=== PATIENT | male | born 1945 | race Caucasian/White ===

== ENCOUNTER → 2016-05-10 | Outpatient (CLI) | payer MEDICARE, MEDICAID ==
[~2016-05-10] MED LIST: ALBU0.632 IH; ALBU8.5H2 IH; ALLP300T PO; ALPR0.5T PO; AMIT100T2 PO; AMIT50TA3 PO; AMLO10TA2 PO; AMLO5TAB2 PO; ASP81TEC PO; ATOR40TA70 PO; BACL10TA PO; BSP10T PO; BUDE10.2 IH; CEPH500C PO; CETI10CA PO; CETI10TA17 PO; CHOL200025 PO; CIPR500T78 PO; CYAN10007 PO; DEXL60CA PO; ETOD400T PO; EZET10TA5 PO; FENO145T2 PO; FLUT16SP22 INH; FLUT1DIS26 IH; HYDR-3714 PO; HYDR-3812 PO; HYDR-623 PO; HYDR-753 PO; HYDR-757 PO; HYDR25TA4 PO; ISOS30TA3 PO; ISOS30TA8 PO; LISI10TA PO; LISI40TA PO; METO-272 PO; METO-274 PO; METO10TA3 PO; MIRA50TA PO; MONT10TA24 PO; NEOM28.35 TP; NTR.4SL SL; OM-31CAP9 PO; OMEP20TA2 PO; OMEP20TA7 PO; ONDAN4ODT SL; ONDN4T PO; OXYC-197 PO; PANT40TA PO; POLY119P PO; PRD10T PO; PRD20T PO; RANI300T4 PO; SCR1T1 PO; SENN1TAB8 PO; SUCR1TAB PO; SULF1TAB35 PO; SULF1TAB7 PO; TIOT18CA IH; TMSL.4C PO
--- NOTE | 2016-05-15 09:41 | ECHOCARDIOGRAPHY REPORT ---
PROCEDURE PHYSICIAN: ANDERSON KRUEGER DATE OF PROCEDURE: 05/10/2016 TWO DIMENSIONAL ECHOCARDIOGRAM REPORT PRIMARY PHYSICIAN: Dr. Cespedes OTHER PHYSICIAN: Dr. Krueger REFERRING PHYSICIAN: ORDERING PHYSICIAN: Yudi Zambrano APRN INDICATION FOR THE PROCEDURE: Coronary artery disease, aortic regurgitation, mitral regurgitation, hypertension MEASUREMENTS DERIVED VALUES LV DIAMETER (LAX) NORMALS NORMALS Diastolic 5. (3.6-5.2) Eject. Fract. (60%+/-6%) Systolic (2.3-3.9) Diastolic Vol. % Shortening (0.22-0.42) Systolic Vol. Aortic Root IVS THICKNESS Diastolic 1.2 (0.6-1.1) LVPW THICKNESS Diastolic 1.2 (0.6-1.1) LA DIAMETER Systolic 3.6 (2.1-3.7) DESCRIPTION: Two-dimension echocardiography shows normal global left ventricular systolic function with normal wall motion. The aortic, mitral and tricuspid valve leaflets show good leaflet excursion. There is no significant pericardial effusion. Doppler imaging shows mild tricuspid regurgitation. Pulmonary artery systolic pressure is estimated to be approximately 25 to 30 mmHg. Mitral inflow is consistent with grade I diastolic dysfunction of the left ventricle. There is no Doppler evidence of any significant valvular stenosis. Good subcostal views are not available. On the views available, there is no distinct evidence of any significant mitral cardiac shunt. The inferior vena cave does not appear to be dilated. CONCLUSION: 1. Normal global left ventricular systolic with ejection fraction of approximately 60%. 2. Mild to moderate aortic regurgitation. 3. Mild tricuspid regurgitation. 4. Mild diastolic dysfunction of the left ventricle. 5. Pulmonary artery systolic pressure is estimated to be approximately 25 to 30 mmHg. 6. Mild mitral regurgitation. Job ID: [id number] Dictated Date: 05/14/2016 12:42:18 Client Support Administrator Date: 05/15/2016 09:29:09 / nasim
== END ==
LOC: CARD 10:14
PROVIDERS: ATTEND Nurse Practitioner Family
DX: I25.10 Atherosclerotic heart disease of native coronary artery without angina pectoris (principal); I65.23 Occlusion and stenosis of bilateral carotid arteries; E78.4 Other hyperlipidemia; I34.0 Nonrheumatic mitral (valve) insufficiency; I35.1 Nonrheumatic aortic (valve) insufficiency; I10 Essential (primary) hypertension
CPT/HCPCS: 93306

== ENCOUNTER 2016-11-01 21:54 | Emergency (ER) | payer MEDICARE, MEDICAID ==
[~2016-11-01] VITALS: Ht 175.3 cm; Wt 98.0 kg
[2016-11-01] MEDS ORDERED: ORPHENADRINE 60 MG/2 ML (NORFLEX) AMP IM ONE (22:30)
[2016-11-01] MEDS ORDERED: KETOROLAC 60 MG/2 ML VIAL IM ONE (22:30)
[2016-11-01] MEDS ORDERED: diphenhydrAMINE 50 MG/ML INJ (BENADRYL) IM ONE (22:30)
[2016-11-01] MEDS ORDERED: TRAM-42 PO (22:41)
[2016-11-01] MEDS ORDERED: METH4TAB PO (22:41)
[2016-11-01] MEDS ORDERED: METH500T PO (22:41)
--- NOTE | 2016-11-01 22:41 | ED Back Pain ---
General Chief Complaint: Hip/Pelvic Problems Stated Complaint: LOWER BACK/LT HIP PAIN Nursing Triage Note: patient reports L hip and back pain after bending over and working in the garden this evening, denies injury Nursing Sepsis Screen: No Definite Risk Source of Information: Patient History of Present Illness Time Seen by Provider: 22:10 Initial Comments PT ARRIVES VIA POV C/O LOWER BACK AND LEFT "HIP" PAIN --POINTS TO LEFT SI JOINT AREA SITE OF PAIN HAS CHRONIC LOWER BACK, BILATERAL HIP AND BILATERAL KNEE PAIN, AND THIS IS EXACTLY THE SAME PAIN HE HAS HAD IN THE PAST SEES A SPECIALIST IN FOR THESE PROBLEMS, AND HAS AN APPOINTMENT THERE PT STATES SPECIALIST PRESCRIBES HIS PAIN MEDICATION--HYDROCODONE OR OXYCODONE PT STATES HE RAN OUT OF HIS PAIN MEDICATION 3 DAYS AGO, AND "JUST NEEDS SOMETHING TO GET HIM BY" UNTIL HIS APPOINTMENT IN [place] PT STATES "THEY ALWAYS GIVE ME A SHOT OF DILAUDID" FOR THIS PROBLEM NO NEW INJURY--PT STATES HIS PAIN GOT WORSE AFTER HE WORKED IN HIS GARDEN ALL AFTERNOON AND EVENING--ALOT OF BENDING OVER NO PARESTHESIAS OR MOTOR DEFICITS NO CHANGE IN BOWEL OR BLADDER FUNCTION NO RADIATION OF PAIN HAS NOT TAKEN ANYTHING FOR PAIN PT STATES HE HAS HAD NAUSEA AND VOMITING FOR THE LAST [address], [address] CRUZ TODAY IN OFFICE AND WAS GIVEN IV FLUIDS AND RX FOR NAUSEA MEDICATION--THOSE SYMPTOMS HAVE RESOLVED AT THIS TIME PT STATES HE DID NOT TELL DR. CRUZ ABOUT HIS BACK PAIN, AND STATES DR. CRUZ NEVER PRESCRIBES HIS PAIN MEDICATION PT STATES HE HAS HAD 3 BACK SURGERIES, LEFT KNEE AND HIP REPLACEMENTS AND IS SUPPOSED TO HAVE RIGHT HIP REPLACED, BUT HAS NOT SCHEDULED SURGERY. Other Comments PCP: DR. CRUZ, [facility] Allergies and Home Medications Allergies Coded Allergies: morphine (Verified Allergy, Severe, HIVES, N/V, 04/25/15) fentanyl (Unverified Allergy, Mild, RESTLESS, 04/25/15) Home Medications Albuterol 8.5 Gm Hfa.aer.ad, 2 PUFF IH Q4H PRN for COUGH, (Reported) PRN COUGH Allopurinol 300 Mg Tablet, 150 MG PO DAILY, (Reported) TAKE 1/2 OF (300MG) TAB Amitriptyline Hcl 50 Mg Tablet, 100 MG PO HS, (Reported) TAKE 2 (50MG) TABS Atorvastatin Calcium 40 Mg Tablet, 40 MG PO HS, (Reported) Budesonide/Formoterol Fumarate 10.2 Gm Hfa.aer.ad, 2 PUFF IH BID, (Reported) Buspirone Hcl 10 Mg Tablet, 10 MG PO HS, (Reported) Cetirizine HCl 10 Mg Tablet, 10 MG PO DAILY, (Reported) Etodolac 400 Mg Tablet, 1 TAB PO BID, #60 (Reported) Ezetimibe 10 Mg Tablet, 1 TAB PO DAILY, #28 (Reported) Fenofibrate Nanocrystallized 145 Mg Tablet, 145 MG PO DAILY, (Reported) Fluticasone Propionate 16 Gm [place].susp, 1 SPR INH DAILY, #16 (Reported) Hydrochlorothiazide 25 Mg Tablet, 25 MG PO DAILY, (Reported) Lisinopril 40 Mg Tablet, 40 MG PO DAILY, (Reported) Methocarbamol 500 Mg Tablet, 500 MG PO QID, #20 Prescribed by: SLOANE LOUIS on 11/01/162240 Methylprednisolone 4 Mg Tab.ds.pk, 4 MG PO UD, #1 Prescribed by: SLOANE LOUIS on 11/01/162240 Metoprolol Succinate 100 Mg Tab.er.24h, 100 MG PO DAILY, (Reported) Montelukast Sodium 10 Mg Tablet, 1 TAB PO DAILY, #28 (Reported) Om-3/Dha/Epa/Fish Oil/Vit D3 1 Each Capsule, 1,200 MG PO DAILY, (Reported) Ondansetron Hcl 4 Mg Tab, 4 MG PO Q4H PRN for NAUSEA/VOMITING, (Reported) PRN N/V Pantoprazole Sodium 40 Mg Tablet.dr, 40 MG PO DAILY, (Reported) Sennosides/Docusate Sodium 1 Each Tablet, 1-4 EACH PO DAILY PRN for CONSTIPATION , (Reported) Sucralfate 1 Gm Tablet, 1 TAB PO QID PRN for ABDOMINAL PAIN, #120 (Reported) Tamsulosin Hcl 0.4 Mg Cap, 0.4 MG PO DAILY, (Reported) Tiotropium [place] 18 Mcg Cap.w.dev, 2 PUFF IH DAILY, (Reported) Tramadol HCl 50 Mg Tablet, 50 MG PO Q4H, #20 Prescribed by: SLOANE LOUIS on 11/01/161 Constitutional: no symptoms reported Respiratory: no symptoms reported Cardiovascular: no symptoms reported Gastrointestinal: no symptoms reported Genitourinary: no symptoms reported Musculoskeletal: see HPI, back pain Skin: no symptoms reported Psychiatric/Neurological: No Symptoms Reported Past Bjahkqi-Clmewf-Gswfkq Hx Patient Social History Alcohol Use: Denies Use Recreational Drug Use: No Smoking Status: Former Smoker (2 PPD) Type Used: Cigarettes Former Smoker/When Quit: Apr 28, 1993 Recent Foreign Travel: No Contact w/Someone Who Travel: No Recent Infectious Disease Expo: No Recent Hopitalizations: No Immunizations Up To Date Tetanus Booster (TDap): More than 5yrs Date of Pneumonia Vaccine: Feb 06, 2015 Date of Influenza Vaccine: Jan 24, 2016 Seasonal Allergies Seasonal Allergies: Yes Surgeries HX Surgeries: Yes (CARPAL TUNNEL BILAT, BACK X3, R SHOULDER REPLACEMENT, L HIP REPLACEMENT, L TKR; EGD'S; PROSTATE BIOPSY; CIRCUMCISION; LYSIS OF ADHESIONS X 2 IN ; CARDIAC CATH-NO INTERVENTION) Surgeries: Abdominal, Cardiac, Joint Replacement, Orthopedic, Transurethral Resection Respiratory Hx Respiratory Disorders: Yes Respiratory Disorders: Asthma, COPD Cardiovascular Hx Cardiac Disorders: Yes (MITRAL VALVE PROLAPSE; CARDIAC CAHT 11/16/14--NO INTERVENTION) Cardiac Disorders: High Cholesterol, Hypertension, Valvular Heart Disease Neurological Hx Neurological Disorders: No Reproductive System Hx Reproductive Disorders: Yes Sexually Transmitted Disease: No HIV/AIDS: No Genitourinary Hx Genitourinary Disorders: Yes (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 THE OTHER; PROSTATE CANCER) Genitourinary Disorders: Prostate Problems, Kidney Stones Gastrointestinal Hx Gastrointestinal Disorders: Yes (FATTY LIVER; GASTROPARESIS) Gastrointestinal Disorders: Gastroesophageal Reflux, Liver Disease/Jaundice, Polyps, Esophagitis, Hiatal Hernia Musculoskeletal Hx Musculoskeletal Disorders: Yes Musculoskeletal Disorders: Degenerate Disk Disease, Arthritis, Back Injury, Chronic Back Pain, Gout Endocrine Hx Endocrine Disorders: Yes Endocrine Disorders: Diabetes, Non-Insulin dep HEENT HX ENT Disorders: Yes (READING GLASSES) Loss of Vision: Bilateral Hearing Impairment: Denies Cancer Hx Cancer: Yes (PROSTATE CANCER, DX 2014--S/P 47 RADIATION TREATMENTS) Cancer: Prostate Psychosocial Hx Psychiatric Problems: No Integumentary HX Skin/Integumentary Disorder: No Blood Transfusions Hx Blood Disorders: No Adverse Reaction to a Blood Tr: No (HAS HAD BLOOD WITH NO REACTION) Physical Exam Vital Signs Vital Sign - Last 12Hours 11/01/16 22:00 Temp 98.2 Pulse 99 Resp 18 B/P (MAP) 139/97 Pulse Ox 99 Capillary Refill : Less Than 3 Seconds General Appearance: No Apparent Distress, WD/WN Neck: Normal Inspection, Non Tender Cardiovascular: Regular Rate, Rhythm, No Edema, No Murmur, Normal Peripheral Pulses Respiratory: Normal Breath Sounds, No Accessory Muscle Use, No Respiratory Distress Gastrointestinal: Soft Back: Decreased Range of Motion (IN ALL DIRECTIONS), Other (LOWER LUMBAR TENDERNESS AND LEFT SI JOINT TENDERNESS--PALPATION REPRODUCES PAIN, DOES MOVEMENTS. DTR'S INTACT. 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 Norm as Tested Skin: Normal Color, Warm/Dry, Other (MULTIPLE ABRASIONS AND BRUISES TO FOREARMS ) Progress/Results/Core Measures Results/Orders My Orders Orders - SLOANE LOUIS DO Ketorolac Injection (Toradol Injection) (11/01/16 22:30) Orphenadrine Injection (Norflex Injectio (11/01/16 22:30) Diphenhydramine Injection (Benadryl Inje (11/01/16 22:30) Medications Given in ED Current Medications Medications Dose Ordered Sig/Allison Route Start Time Stop Time Status Last Admin Dose Admin Diphenhydramine HCl 50 mg ONCE ONCE IM 11/01/16 22:30 11/01/16 22:31 DC 11/01/16 22:34 50 MG Ketorolac Tromethamine 60 mg ONCE ONCE IM 11/01/16 22:30 11/01/16 22:31 DC 11/01/16 22:34 60 MG Orphenadrine Citrate 60 mg ONCE ONCE IM 11/01/16 22:30 11/01/16 22:31 DC 11/01/16 22:33 60 MG Vital Signs/I&O Vital Sign - Last 12Hours 11/01/16 11/01/16 22:00 22:50 Temp 98.2 Pulse 99 84 Resp 18 18 B/P (MAP) 139/97 Pulse Ox 99 99 Blood Pressure Mean: 111 Progress Note : Progress Note PAIN BEGINNING TO EASE AT DISMISSAL Departure Impression Impression: Primary Impression: Acute exacerbation of chronic low back pain Disposition: 01 HOME, SELF-CARE Condition: Stable Departure-Patient Inst. Referrals: MAGGI CRUZ MD (PCP/Family) Primary Care Physician Patient Instructions: Low Back Pain (DC), MANAGING YOUR CHRONIC PAIN Add. Discharge Instructions: MOIST HEAT TO SORE AREAS AT 20 MINUTE INTERVALS FOLLOW UP WITH YOUR SPECIALIST IN [place] FOR FURTHER CARE All discharge instructions reviewed with patient and/or family. Voiced understanding. Scripts Methocarbamol (Robaxin) 500 Mg Tablet 500 MG PO QID for Muscle Spasms, #20 TAB Prov: SLOANE LOUIS DO 11/01/16 Tramadol HCl (Ultram) 50 Mg Tablet 50 MG PO Q4H, #20 TAB Prov: SLOANE LOUIS DO 11/01/16 Methylprednisolone (Medrol) 4 Mg Tab.ds.pk 4 MG PO UD, #1 PKG Prov: SLOANE LOUIS DO 11/01/16 SLOANE LOUIS DO Nov 01, 2016 22:41
[2016-11-01 22:50] VITALS: BP 134/90
== END 2016-11-01 22:50 | disposition home or self-care (01) ==
LOC: EDUNIT# 21:54 → ER 21:56
DX: M54.5 Low back pain (principal); G89.29 Other chronic pain; J44.9 Chronic obstructive pulmonary disease, unspecified; I10 Essential (primary) hypertension; E78.00 Pure hypercholesterolemia, unspecified; K21.9 Gastro-esophageal reflux disease without esophagitis; M19.90 Unspecified osteoarthritis, unspecified site; E11.9 Type 2 diabetes mellitus without complications; Z85.46 Personal history of malignant neoplasm of prostate; Z87.19 Personal history of other diseases of the digestive system; Z87.442 Personal history of urinary calculi; Z87.891 Personal history of nicotine dependence; Z96.611 Presence of right artificial shoulder joint; Z96.642 Presence of left artificial hip joint
CPT/HCPCS: 96372; 99284

== ENCOUNTER 2016-12-04 21:12 | Emergency (ER) | payer MEDICARE, MEDICAID ==
[~2016-12-04] VITALS: Ht 175.3 cm; Wt 100.7 kg
[~2016-12-04 21:12] MED LIST changes: +METH4TAB PO; +METH500T PO; -METO-274 PO; +METO-395 PO; +TRAM-42 PO
[2016-12-04] MEDS ORDERED: DULO30CA48 (21:24)
[2016-12-04] MEDS ORDERED: ISOS30TA3 (21:24)
[2016-12-04] MEDS ORDERED: SUMA50TA2 (21:24)
[2016-12-04] MEDS ORDERED: AMLO10TA2 (21:24)
--- NOTE | 2016-12-04 22:07 | ED Hip Pain/Injury ---
General Chief Complaint: Hip/Pelvic Problems Stated Complaint: RT HIP AND KNEE PAIN Nursing Triage Note: RIGHT HIP PAIN, NO KNOWN INJURY Source: patient Exam Limitations: no limitations History of Present Illness Time seen by provider: 22:06 Initial Comments 71-year-old male patient presents to the emergency department with complaints of right hip pain and right knee pain. States he has chronic pain, but symptoms are worse today. Denies any known recent injury. Patient was seen on 11/01/[address] Otero for left hip pain. Patient sees Dr. Brasher in [place], [place] for the right hip. She was seen by this examiner in February 2016 with patient reporting at that time he was having right hip surgery after the holidays. Patient reported to Dr. Otero on 11/01 that he was scheduled on 11/13/[address] Brasher. Patient reports to this examiner he was not scheduled for an appointment in November with the specialist and did not have surgery after the holidays on the right hip. Patient now stating he has an appointment in one to [address] Brasher to schedule surgery for the right hip. Location: hip (R) Modifying Factors: Worse With Movement Allergies and Home Medications Allergies Coded Allergies: morphine (Verified Allergy, Severe, HIVES, N/V, 04/25/15) fentanyl (Verified Allergy, Mild, RESTLESS, 12/07/16) Home Medications Allopurinol 300 Mg Tablet, 150 MG PO DAILY, (Reported) TAKE 1/2 OF (300MG) TAB Amlodipine Besylate 10 Mg Tablet, (Reported) Atorvastatin Calcium 40 Mg Tablet, 40 MG PO HS, (Reported) Budesonide/Formoterol Fumarate 10.2 Gm Hfa.aer.ad, 2 PUFF IH BID, (Reported) Buspirone Hcl 10 Mg Tablet, 10 MG PO HS, (Reported) Cetirizine HCl 10 Mg Tablet, 10 MG PO DAILY, (Reported) Cyclobenzaprine HCl 10 Mg Tablet, 10 MG PO Q8H PRN for SPASMS, #10 Ref 0 Prescribed by: ELPIDIO ROMAN on 12/04/162222 Duloxetine HCl 30 Mg Capsule., (Reported) Ezetimibe 10 Mg Tablet, 1 TAB PO DAILY, #28 (Reported) Fenofibrate Nanocrystallized 145 Mg Tablet, 145 MG PO DAILY, (Reported) Hydrochlorothiazide 25 Mg Tablet, 25 MG PO DAILY, (Reported) Isosorbide Mononitrate 30 Mg Tab.er.24h, (Reported) Ketoprofen 75 Mg Capsule, 75 MG PO TID PRN for pain, #30 Ref 0 Prescribed by: ELPIDIO ROMAN on 12/04/162222 Lisinopril 40 Mg Tablet, 40 MG PO DAILY, (Reported) Metoprolol Succinate 100 Mg Tab.er.24h, 100 MG PO DAILY, (Reported) Pantoprazole Sodium 40 Mg Tablet.dr, 40 MG PO DAILY, (Reported) Prednisone 20 Mg Tab, 40 MG PO DAILY, #10 Ref 0 Prescribed by: ELPIDIO ROMAN on 12/04/162222 Sucralfate 1 Gm Tablet, 1 TAB PO QID PRN for ABDOMINAL PAIN, #120 (Reported) Sumatriptan Succinate 50 Mg Tablet, (Reported) Tamsulosin Hcl 0.4 Mg Cap, 0.4 MG PO DAILY, (Reported) Tiotropium [place] 18 Mcg Cap.w.dev, 2 PUFF IH DAILY, (Reported) Tramadol HCl 50 Mg Tablet, 50 MG PO Q4H, #20 Prescribed by: SLOANE OTERO on 11/01/16 2241 Constitutional: No chills, No fever, No malaise Respiratory: no symptoms reported Cardiovascular: no symptoms reported Gastrointestinal: No abdominal pain, No constipation, No diarrhea, No loss of appetite, No nausea, No vomiting Genitourinary: No dysuria, No frequency, No hematuria Musculoskeletal: see HPI, No back pain, joint pain, No joint swelling Skin: no symptoms reported Psychiatric/Neurological: No Symptoms Reported All Other Systems Reviewed Negative Unless Noted: Yes (Negative excepted noted.) Past Ybgcjmp-Vkreew-Rzbebv Hx Patient Social History Alcohol Use: Denies Use Recreational Drug Use: No Smoking Status: Former Smoker Type Used: Cigarettes Former Smoker, Quit: Nov 06, 1990 Recent Foreign Travel: No Contact w/Someone Who Travel: No Recent Infectious Disease Expo: No Recent Hopitalizations: No Immunizations Up To Date Tetanus Booster (TDap): More than 5yrs Date of Pneumonia Vaccine: Feb 06, 2015 Date of Influenza Vaccine: Jan 24, 2016 Seasonal Allergies Seasonal Allergies: Yes Surgeries History of Surgeries: Yes (CARPAL TUNNEL BILAT, BACK X3, R SHOULDER REPLACEMEN , L HIP REPLACE, L TKR) Surgeries: Abdominal, Cardiac, Joint Replacement, Orthopedic, Transurethral Resection Respiratory History of Respiratory Disorde: Yes Respiratory Disorders: Asthma, COPD Currently Using CPAP: No Currently Using BIPAP: No Cardiovascular History of Cardiac Disorders: Yes (MITRAL VALVE PROLAPSE) Cardiac Disorders: High Cholesterol, Hypertension, Valvular Heart Disease Neurological History of Neurological Disord: No Reproductive System Hx Reproductive Disorders: Yes Sexually Transmitted Disease: No HIV/AIDS: No Genitourinary History of Genitourinary Disor: Yes Genitourinary Disorders: Prostate Problems, Kidney Stones Gastrointestinal History of Gastrointestinal Di: Yes (FATTY LIVER) Gastrointestinal Disorders: Gastroesophageal Reflux, Liver Disease/Jaundice, Polyps, Esophagitis, Hiatal Hernia Musculoskeletal History of Musculoskeletal Dis: Yes (chronic hip and knee pain) Musculoskeletal Disorders: Degenerate Disk Disease, Arthritis, Back Injury, Chronic Back Pain, Gout Endocrine History of Endocrine Disorders: Yes Endocrine Disorders: Diabetes, Non-Insulin dep HEENT History of HEENT Disorders: No Loss of Vision: Bilateral Hearing Impairment: Denies Cancer History of Cancer: Yes Cancer: Prostate Psychosocial History of Psychiatric Problem: No Integumentary History of Skin or Integumenta: No Blood Transfusions History of Blood Disorders: No Adverse Reaction to a Blood Tr: No (HAS HAD BLOOD WITH NO REACTION) Reviewed Nursing Assessment Reviewed/Agree w Nursing PMH: Yes Family Medical History Significant Family History: No Pertinent Family Hx Physical Exam Vital Signs Capillary Refill : Less Than 3 Seconds General Appearance: No Apparent Distress, WD/WN, Other (patient noted to be ambulating around the room without difficulty. Upon this examiner entering the room patient ambulates across the room and sits on the side of the bed without grimacing and without difficulty.) HEENT: PERRL/EOMI, Pharynx Normal Neck: Normal Inspection, Supple Cardiovascular: Regular Rate, Rhythm, No Edema, No Murmur, Normal Peripheral Pulses Respiratory: Lungs Clear, Normal Breath Sounds, No Accessory Muscle Use, No Respiratory Distress Peripheral Pulses: 2+ Dorsalis Pedis (R), 2+ Left Dors-Pedis (L), 2+ Radial Pulses (R), 2+ Radial Pulses (L) Gastrointestinal: Normal Bowel Sounds, Non Tender, Soft Back: Normal Inspection Extremity: Normal Capillary Refill, Normal Inspection, Normal Range of Motion, No Pedal Edema, Other (mild soft tissue tenderness noted of the right posterior and lateral hip as well as right knee. No bony tenderness noted. No swelling, deformity, or ecchymosis noted.) Neurologic/Psychiatric: Alert, Oriented x3, No Motor/Sensory Deficits, Normal Mood/Affect Skin: Normal Color, Warm/Dry, No Cool, No Cyanosis, No Ecchymosis Progress/Results/Core Measures Results/Orders My Orders Orders - ELPIDIO ROMAN Hydrocodone/Apap 10/325 Tablet (Lortab 1 (12/04/16 22:30) Cyclobenzaprine Tablet (Flexeril Tablet) (12/04/16 22:18) Vital Signs/I&O Blood Pressure Mean: 122 Departure Communication (Admissions) Progress Notes Patient seen and evaluated. Patient was given 1 dose of hydrocodone and Flexeril in the emergency department. Patient also given prescriptions for prednisone, ketoprofen, and Flexeril. Patient to contact Dr. Brasher's office tomorrow morning to see if they have an appointment this week. Patient to f/u with his PCP or Dr. Brasher for narcotic refills. Impression Impression: Primary Impression: Chronic right hip pain Disposition: HOME, SELF-CARE Condition: Improved Departure-Patient Inst. Decision time for Depature: 22:21 Referrals: MAGGI CRUZ MD (PCP/Family) Primary Care Physician Patient Instructions: Chronic Pain (DC) Add. Discharge Instructions: All discharge instructions reviewed with patient and/or family. Voiced understanding. Medications as instructed. Ionized strength [id number] as directed for pain. Follow-up with your specialist in [place] on the 11 of December as previously scheduled. Return to the emergency department for worsened symptoms or any other concerns. Scripts Prednisone (Prednisone) 20 Mg Tab 40 MG PO DAILY, #10 TAB 0 Refills Prov: ELPIDIO ROMAN 12/04/16 Cyclobenzaprine HCl (Cyclobenzaprine HCl) 10 Mg Tablet 10 MG PO Q8H Y for SPASMS, #10 TAB 0 Refills Prov: ELPIDIO ROMAN 12/04/16 Ketoprofen (Ketoprofen) 75 Mg Capsule 75 MG PO TID Y for pain, #30 CAP 0 Refills Prov: ELPIDIO ROMAN 12/04/16 ELPIDIO ROMAN Dec 04, 2016 22:07
[2016-12-04] MEDS ORDERED: CYCLOBENZAPRINE 10 MG (FLEXERIL) TAB PO STA (22:18)
[2016-12-04] MEDS ORDERED: CYCL10TA9 PO (22:23)
[2016-12-04] MEDS ORDERED: PRD20T PO (22:23)
[2016-12-04] MEDS ORDERED: KETO75CA PO (22:23)
[2016-12-04] MEDS ORDERED: HYDROcodone/APAP 10 MG/325 MG (LORTAB) TAB PO ONE (22:30)
[2016-12-04 22:35] VITALS: BP 171/98
--- OUTSIDE RECORDS SUMMARY | 2016-12-05 04:39 | XMS REPORT | Continuity of Care Document ---
Author Author [employer] Organization [employer] Address Unknown Phone Unavailable Care Team Providers Care Documentation Specialist Name Role Phone [employer] Unavailable Unavailable Problems Problem Status Onset Date Classification Date Reported Comments Source Generalized anxiety disorder (disorder) 10/24/2015 Diagnosis 10/25/2015 [facility] Discharge Diagnosis: Chronic kidney disease 10/24/2015 Diagnosis 10/25/2015 [facility] No data available for this section Problem 10/25/2015 [facility] Medications Medication Details Route Status Patient Instructions Ordering Provider Order Date Source Lorazepam 0.5 MG Oral Tablet [Ativan]
</br>1 Tab, TID, PO, 10 Tab, 10/28/15, 0 Number of Refills, 0, Print Requisition Inactive [facility] Allergies, Adverse Reactions, Alerts Substance Category Reaction Severity Reaction type Status Date Reported Comments Source Fentanyl Assertion upset stomach Drug allergy [facility] Care Morphine Assertion upset stomach Drug allergy [facility] Immunizations Immunization Date Given Site Status Last Updated Comments Source No data available for this section No data available for this section [facility] Results Order Name Results Value Reference Range Date Interpretation Comments Source ED Patient Discharge Instructions ED Patient Discharge Instructions [facility] [address] Aftercare Instructions to the Patient Name: ТАТЬЯНА CROCKETT Current Date: 10/24/2015 17:53:28 : 1945 12:00 AM Chief Complaint: Anxiety reaction Visit Date: 10/24/2015 3:40 PM Primary Care Provider: Name: Not, Listed Phone: [facility] would like to thank you for allowing us to assist you with your healthcare needs. The following includes patient education materials and information regarding your injury/illness. An Emergency Department visit is not capable of addressing all the unique aspects of an individuals healthcare. It is intended to address immediate and life-threatening concerns. Emergency Department visits do not take the place of routine physical examinations or follow-up examinations by a primary care physician. In addition, medical problems may not be apparent, diagnosed, or treated prior to being released from the Emergency Department. Your initial radiology reading may have been done by an Emergency Physician and is a preliminary interpretation to expedite your care. A radiologist reviews all x-rays within 24 hours. Culture results will be ready in 2-4 days. If final radiology or lab test results indicate a need for further treatment, we will attempt to contact you or your physician. Every medication may cause side effects. If medications were prescribed to you, finish all prescriptions as instructed even if you feel better. If you experience a side effect, notify your physician, pharmacist, or return to the Emergency Department. Alcohol may interfere with the medication prescribed. Follow the instructions given by the pharmacy that fills your prescription. If you were given medications that may cause drowsiness do not drive, operate heavy equipment, or perform duties that require you to be alert. Please call tomorrow or the next available for an appointment in the specified timeframe. If you do not have a primary care provider, or your provider is unable, please contact the [facility] [place] to assist you in making an appointment. Visit [email or web address] to see your health information, physician notes, helpful videos, your bill, and other information online. Follow-up Instructions: With: Address: When: Follow up with your Primary Care Physician within 1 to 3 days Comment: Your appointment has not been made Return if worsening Medication Changes: Tests and Procedures You had laboratory tests performed during your stay. Patient Education: Chronic Kidney Disease (CKD) The role of the kidneys is to remove waste products and excess water from the blood. When the kidneys do not function normally and waste products begin to build up in the blood, this is called chronic kidney disease (CKD). CKD is defined as the presence of kidney damage or a decrease in kidney function lasting 3 months or more. CKD allows excess water, waste, and toxic substances to build up in the body. This can eventually become life-threatening, requiring dialysis or a kidney transplant to stay alive. This most severe form is called end stage renal disease or ESRD. Diabetes is the leading causes of chronic renal failure. Other causes include high blood pressure, hardening of the arteries (atherosclerosis), lupus, inflammation of the blood vessels (vasculitis), prior viral and bacterial infections, and others. Certain jbyf-drz-meidmdv pain medicines can cause renal failure when taken often over a long period of time. These include aspirin, ibuprofen, and related anti-inflammatory medicines called NSAIDs (nonsteroidal anti-inflammatory drugs). Home care The following guidelines will help you care for yourself at home: 1. If you have diabetes, talk to your doctor about the quality of your blood sugar control and any adjustments needed to your diet, lifestyle, or medicines. 2. If you have high blood pressure: Take prescribed medicine to lower your blood pressure to the recommended goal of less than 130/80. Take up a regular exercise program that you enjoy. Check with your doctor to be sure your planned exercise program is right for you. Reduce your salt (sodium) intake. Your doctor can tell you how much salt per day is safe for you. 3. If you are overweight, talk to your doctor about a weight loss plan. 4. If you smoke, you must quit. Smoking worsens kidney disease. Talk to your doctor about ways to help you quit. For more information, visit the following links: www.smokefree.gov/sites/default/files/pdf/qgkosomf-wej-xrc-accessible.pdf www.smokefree.gov www.cancer.org/healthy/stayawayfromtobacco/guidetoquittingsmoking/ 5. Most patients with chronic renal failure need to follow a special diet. Be sure you understand yours. In general, you will need to restrict protein, salt, potassium, and phosphorus. You also need to limit fluid intake. A calcium supplement may be prescribed to protect your bones from osteoporosis. 6. CKD is a risk factor for heart disease. Talk to your doctor about any other risk factors you might have and what you can do to lessen them. 7. Talk to your doctor about any medicines you are taking to determine if they need to be reduced or stopped. 8. Avoid the following ilxe-xzt-trvdgss medicines, or consult your doctor before using: Aspirin and nonsteroidal anti-inflammatory drugs (NSAIDs) such as ibuprofen or naproxen (short-term use of acetaminophen for fever or pain is okay) Laxatives and antacids containing magnesium or aluminum Fleet or phospho soda enemas containing phosphorus Certain stomach acid-blocking medicine such as cimetidine or ranitidine Decongestants containing pseudoephedrine Herbal supplements Follow-up care Follow up with your doctor or as advised by our staff. Contact one of the following for more information: [place] www.aakp.org National Kidney Foundation www.kidney.org [employer] www.kidneyfund.org National Kidney Disease Education Program (406) 2JAUNRA www.nkdep.nih.gov [NOTE: If an X-ray, EKG (cardiogram), or other diagnostic test was taken, another specialist will review it. You will be notified of any new findings that may affect your care.] When to seek medical care Get prompt medical attention or contact your doctor if any of the following occur: Nausea or vomiting Fever greater than 100.4F (38C) Severe weakness, dizziness, fainting, drowsiness, or confusion Chest pain or shortness of breath Unexpected weight gain or swelling in the legs, ankles, or around the eyes Heart beating fast, slow, or irregularly Decrease or absent urine output [id number] [employer] [place] [address]. All rights reserved. This information is not intended as a substitute for professional medical care. Always follow your healthcare professional's instructions. Anxiety Reaction Anxiety is the feeling we all get when we think something bad might happen. It is a normal response to stress and usually causes only a mild reaction. When anxiety becomes more severe, it can interfere with daily life. In some cases, you may not even be aware of what it is you're anxious about. There may also be a genetic link or it may be a learned behavior in the home. Both psychological and physical triggers cause stress reaction. It's often a response to fear or emotional stress, real or imagined. This stress may come from home, family, work, or social relationships. During an anxiety reaction, you may feel: Helpless Nervous Depressed Irritable Your body may show signs of anxiety in many ways. You may experience: Dry mouth Shakiness Dizziness Weakness Trouble breathing Breathing fast (hyperventilating) Chest pressure Sweating Headache Nausea Diarrhea Tiredness Inability to sleep Sexual problems Home care Try to locate the sources of stress in your life. They may not be obvious. These may include: Daily hassles of life (traffic jams, missed appointments, car troubles, etc. ) Major life changes, both good (new baby, job promotion) and bad (loss of job , loss of loved one) Overload: feeling that you have too many responsibilities and can't take care of all of them at once Feeling helpless, feeling that your problems are beyond what you're able to solve Notice how your body reacts to stress. Learn to listen to your body signals. This will help you take action before the stress becomes severe. When you can, do something about the source of your stress. (Avoid hassles, limit the amount of change that happens in your life at one time and take a break when you feel overloaded). Unfortunately, many stressful situations can't be avoided. It is necessary to learn how to better manage stress. There are many proven methods that will reduce your anxiety. These include simple things like exercise, good nutrition and adequate rest. Also, there are certain techniques that are helpful: Relaxation Breathing exercises Visualization Biofeedback Meditation For more information about this, consult your doctor or go to a local bookstore and review the many books and tapes available on this subject. Follow-up care If you feel that your anxiety is not responding to self-help measures, contact your doctor or make an appointment with a counselor. You may need short-term psychological counseling and temporary medicine to help you manage stress. Call 911 Call your healthcare provider right away if any of these occur: Trouble breathing Confusion Drowsiness or trouble wakening Fainting or loss of consciousness Rapid heart rate Seizure New chest pain that becomes more severe, lasts longer, or spreads into your shoulder, arm, neck, jaw, or back When to seek medical advice Call your healthcare provider right away if any of these occur: Your symptoms get worse Severe headache not relieved by rest and mild pain reliever [id number] [employer] [place] [address]. All rights reserved. This information is not intended as a substitute for professional medical care. Always follow your healthcare professional's instructions. Name: ТАТЬЯНА CROCKETT Current Date: 10/24/2015 17:53:28 : 1945 12:00 AM Current Medication List: Keep your Medication List with you in case of emergency. Update your medication list with any changes. Include Wotl-Soq-Cqmudhd and Herbal medications. Ativan 0.5 mg oral tablet Generic Medication Name: lorazepam 0.5 mg, Oral, 3 times a day, 10 Tab, 0 Refills, Printed Please bring this list to your next provider(s) visit. Update your medication list when any medications are stopped, doses are changed or new medications are added. Add any over the counter medications, vitamins or herbals to your list. Carry this medication list with you at all times so in the event of an emergency situation your Provider or Nurse can provide you with the best and safest care. Patient Visit Summary ТАТЬЯНА CROCKETT has been given the following list of patient education materials, prescriptions and follow-up instructions: Follow-up Instructions: With: Address: When: Follow up with your Primary Care Physician within 1 to 3 days Comment: Your appointment has not been made Return if worsening Tests and Procedures You had laboratory tests performed during your stay. Patient Education Materials: CHRONIC RENAL FAILURE; ANXIETY REACTION I, ТАТЬЯНА CROCKETT, hereby acknowledge receipt of the instructions indicated above. I will arrange for followup care as indicated above. I understand that if my condition worsens or new symptoms appear, I should contact my private physician immediately. If I am unable to reach my private physician, I understand that I should return promptly to the [facility] at [facility]. I acknowledge receipt of all personal possessions brought to the Emergency Department with me. Patient: Date: __ Time: Witness: Date: _ Time: To request an electronic copy of your discharge instructions, Please contact [employer] at [phone]. Hours are Saturday through Saturday 8am to 5pm. 10/24/2015 [facility] CHEM12 eGFR 40 mL/min >=60 10/24/2015 LOW Estimated eGFR Non calculated using MDRD study equation Verified by Discern Expert.
The MDRD GFR formula is valid only for adults between 18 and 85 years of age.
[facility] CHEM12 Creatinine 1.72 mg/dL 0.40 - 1.10 10/24/2015 HI [facility] LIP Lipase 68 U/L 73 - 393 10/24/2015 LOW [facility] MG Magnesium Level 1.8 mg/dL 1.4 - 2.4 10/24/2015 N [facility] T4 T4 9.8 mcg/dL 4.7 - 13.3 10/24/2015 N [facility] TROPON Troponin <0.02 ng/mL - <=0.09 10/24/2015 N Result Range Troponin Interpretation
<0.1 ng/ml No evidence of myocardial ischemia
0.1 - 0.6 ng/ml Possible myocardial ischemia (ACS)
>0.6 ng /ml Acute myocardial infarction (AMI)
[facility] Care TSH TSH 3.680 uIU/mL 0.354 - 5.720 10/24/2015 N [facility] CHEM12 Potassium 3.7 mmol/L 3.5 - 5.0 10/24/2015 N [facility] Protime INR 1.06 - <=1.20 10/24/2015 N Therapeutic range for INR is 2.0-3.0, except for mechanical prosthetic valves and recurrent myocardial infarction where therapeutic range is 2.5-3.5.
[facility] Emergency Room Documents Emergency Room Documents Patient: ТАТЬЯНА CROCKETT Age: 70 years Sex: Male : 1945 Associated Diagnoses: None Author: Sebas Hilliard MD Basic Information Triage Information: Health History ED ED Cardiac Medical History: No ED Dyslipidemia: No ED Respiratory Medical History: No ED Neurological Medical History: No ED Diabetes Medical History: No ED High Blood Pressure Medical History: No ED Currently : No ED LMP: No ED Previous Surgeries: No ED Other Medical Hx: No ED Smoking Hx: No Exposed to Second Hand Smoke: No ED Tetanus < 5 years: No . Time seen: Date & time 10/24/2015 15:38:00. History source: Family. Arrival mode: hospital bed. History limitation: Clinical condition. Additional information: Reason for Visit Additional Info: Told camilo may not live. Collapsed in ICU waiting room. Shaking uncontrollably. 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 History of Present Illness The patient presents with anxiety. The onset was just prior to arrival. The course/duration of symptoms is constant. Character of symptoms anxious. The degree of symptoms is: Exacerbating factors consist of family problems. Therapy today: see nurses notes. Patient received devastating news regarding his granddaughter NEWTON. He had an anxiety reaction, started shaking, and was not responding. His states he may be dehydrated. The met team was called on patient in the ICU waiting room and patient was brought to ED on a hospital bed. Review of Systems Additional review of systems information: Unable to obtain due to: Clinical condition. Health Status Allergies: Allergic Reactions (Selected) Severity Not Documented FentaNYL- Upset stomach. Morphine- Upset stomach.. Medications: Prescription / Home Medications: No home medications found. Medications Administered this Visit Ativan (lorazepam) , 1 mg, IVP, X 1 DOSE Versed (midazolam) , 2 mg, IM, X 1 DOSE Versed (midazolam) , 2 mg, IM, X 1 DOSE Bolus - Sodium Chloride 0.9% (Sodium Chloride 0.9%) , 1,000 mL, IV, 0 mL/hr, X 1 DOSE , per nurse's notes. Immunizations: Per nurse's notes. Past Medical/ Family/ Social History Medical history Gastrointestinal: kidney issues. Surgical history: Surgical history No active procedure history items have been selected or recorded.. Social history: Tobacco use: Denies, Family/social situation: . Problem list: No problem items selected or recorded., per nurse's notes. Physical Examination Vital Signs Dt/Tm Temp BP Pulse RR SAO2 O2 MAP 10/23 16:01 - 187/92 126 26 96 2 - . Per nurse's notes. Oxygen Saturation 10/24/2015 16:01 CDT Oxygen Saturation 96 % . General: Moderate distress, diaphoretic. Skin: Warm, pink, intact. Head: Normocephalic, atraumatic. Neck: Supple, no JVD. Eye: Pupils are equal, round and reactive to light, extraocular movements are intact, normal conjunctiva. Ears, nose, mouth and throat: Tympanic membranes clear, oral mucosa moist, eye tracking with movement of bed. Cardiovascular: No murmur, Tachycardia. Respiratory: Lungs are clear to auscultation. Gastrointestinal: Soft, Nontender, Normal bowel sounds, No organomegaly, no fluid wave, Signs: McBurney's negative, Berg's negative. Back: Nontender, Normal range of motion. Musculoskeletal: Normal ROM, normal strength, no tenderness, controlled musculoskeletal tremulousness. Neurological: Alert and oriented to person, place, time, and situation, No focal neurological deficit observed. Lymphatics: No lymphadenopathy. Psychiatric: Cooperative, appropriate mood & affect. Medical Decision Making Documents reviewed: Emergency department nurses' notes. Electrocardiogram: ED ECG 12-Lead - 10/24/15 15:56 AGE IS NOT ENTERED, ASSUMED TO BE 50 YEARS OLD FOR PURPOSE OF ECG INTERPRETATION SINUS TACHYCARDIA BORDERLINE LEFT AXIS DEVIATION NL AXIS AND INTERVAL NO ACUTE ST ELEVATION OR RECIPROCAL CHANGES NO PREVIOUS FOR COMPARISON Signed by: Sebas Hilliard MD 10/24/2015 16:28:25 . Results review: Lab results from flowsheet : Lab View 10/24/2015 16:15 CDT pH Art 7.40 pCO2 Art 39 mmHg pO2 Art 78 mmHg LOW HCO3 Art 24 mmol/L O2Hb% 93 % LOW %Saturation, Arterial 95 % Base Excess Art -0.5 mmol/L O2 Cont Art 17.7 vol% Hemoglobin Art 13.5 gm/dL Carboxy Hemoglobin 0.9 % MetHb, Arterial 1.4 % Reduced Hgb 4.7 % NA Level-Art 138 mmol/L K Level--Art 3.5 mmol/L Cl Level--Art 104 mmol/L IonCa Level--Art 1.21 mmol/L Lactate--Art 1.3 mmol/L Glucose--Art. 113 mg/dL HI LPM, Oxygen 2.0 NA Intubated Yes/No No Kenny's Test Yes Device NC Sample Type Arterial Body Site, Resp Tx Left Radial 10/24/2015 16:00 CDT WBC 10.5 x10^3/uL RBC 4.81 x10^6/uL Hgb 14.6 gm/dL Hct 43.6 % MCV 91 fL MCH 30.4 pg MCHC 33.5 gm/dL RDW 12.9 % Platelet 231 x10^3/uL Segs 69 % NA Lymph 20 % NA [place] 9 % NA Eos 1 % NA Baso 1 % NA Abs Neutro 7.27 x10^3/uL Abs Lymph 2.06 x10^3/uL Abs [place] 0.90 x10^3/uL Abs Eos 0.06 x10^3/uL Abs Baso 0.060 thous/uL RBC Morph Normal Protime 11.4 Second(s) INR 1.06 Total Protein 7.7 gm/dL Albumin Level 4.6 gm/dL Calcium 9.3 mg/dL Corrected/Adjusted Ca 8.8 mg/dL Bili Total 0.7 mg/dL Alk Phos 51 U/L Sodium 135 mmol/L Potassium 3.7 mmol/L Chloride 99 mmol/L TCO2 (Bicarbonate) 28 mmol/L Glucose Level 105 mg/dL HI BUN 25 mg/dL HI Creatinine 1.72 mg/dL HI eGFR 40 mL/min LOW ALT/GPT 31 U/L AST/GOT 25 U/L Magnesium Level 1.8 mg/dL Troponin <0.02 ng/mL Lipase 68 U/L LOW T4 9.8 mcg/dL TSH 3.680 uIU/mL . Notes: After review of the history, physical exam, and diagnostic studies, the following conditions have been counseled. The conditions are derived from a limited patient encounter and may not be all-inclusive. Offered observation stay but pt declined. ER precautions and follow up discussed. pt expressed understanding Reexamination/ Reevaluation Time: 10/24/2015 16:08:00 . Assessment: After IV and IM medications, pt is alert, conversing and in no acute distress. Time: 10/24/2015 17:28:00 . Vital signs Dt/Tm Temp BP Pulse RR SAO2 O2 MAP 10/23 16:01 - 187/92 126 26 96 2 129 10/23 16:10 - 160/124 126 26 96 2 129 10/23 16:20 - 188/91 112 17 94 - 129 10/23 16:30 - 192/149 108 21 97 - 113 10/23 16:40 - 178/85 111 24 99 - 160 Notes: I have discussed with the patient, family, and others as appropriate the ancillary data, clinical impression, and the plan. Patient will be discharged to home. Return precautions were discussed with the patient and understanding was indicated. Procedure Critical care note Total time: 30-74 minutes spent engaged in work directly related to patient care and/ or available for direct patient care. Critical condition(s) addressed for impending deterioration include: metabolic. Associated risk factors: metabolic changes, dehydration. Management: bedside assessment, supervision of care, Interpretation ( electrocardiogram, blood pressure), Interventions hemodynamic management, Case review (medical economics consultant, nursing, family), Alternate history family. Treatment response: Pt feels much improved s/p treatment. . Performed by: self. Notes: pt required significant amount of continuous bedisde monitoring and care given significant muscle thrashing and movement which prevented IV placement. Multiple IM doses of medication were given an adequate time was needed between each dose to allow for effect, but also as to not over dose the patient while in the dept. he is now comfortable and admit that he was quite anxious and upset after hearing bad news regarding his granddaughter. ER precautions discussed and p expressed understanding.. Impression and Plan Anxiety reaction (EIA38-VB F41.1, Discharge, Medical) Chronic kidney disease (LUU23-ZZ N18.9, Discharge, Medical) Plan Condition: Stable. Disposition: Discharged: Time 10/24/2015 17:23:00, to home. Prescriptions: Orders Pharmacy: Ativan 0.5 mg oral tablet (Prescribe): 1 Tab, PO, TID, 10 Tab, 0 Refill(s) . Patient was given the following educational materials: ANXIETY REACTION, CHRONIC RENAL FAILURE. Follow up with: Follow up with your Primary Care Physician Within 1 to 3 days Your appointment has not been made Return if worsening. Counseled: Patient, Family, Regarding diagnosis, Regarding diagnostic results, Regarding treatment plan, Regarding prescription, Patient indicated understanding of instructions, Family Understood, Family Understood. 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 Notes: Documentation assistance is provided by Emperatriz Joe. I have reviewed the information recorded by Emperatriz Joe at my direction. The chart has been reviewed and validated by me, Dr. Hilliard, Documentation assistance provided by Leila Briscoe.I have reviewed the information recorded by Leila Briscoe at my direction and the chart has been reviewed and validated by me Dr. Hilliard. . [Electronically Signed on 10.24.2015 05:33 PM]
Sebas Hilliard MD

[ Electronically Signed on 10.24.15.05:44 PM
Sebas Hilliard MD</br> 10/24/2015 [Electronically Signed on 10.24.2015 05:33 PM] Sebas Hilliard MD [Electronically Signed on 10.24.15.05:44 PM Sebas Hilliard MD [facility] ABG. pH Art 7.40 7.35 - 7.45 10/24/2015 N [facility] -RBC Morphology RBC Morph Normal Normal 10/24/2015 N [facility]
RBC morphology is graded as 1, 2 , or 3 indicating a level of abnormality.
1= few/slight
2=moderate
3=marked/many
[facility] -Auto Diff [place] 9 % 10/24/2015 NA [facility] CBC with Diff RBC 4.81 x10^6/ uL 4.60 - 6.20 10/24/2015 N [facility] Progress Note Progress Note Patient: ТАТЬЯНА CROCKETT Age: 70 years Sex: Male : 1945 Associated Diagnoses: None Author: Thom Ragland MD General Information MET team called. Dr. Burgos statesd patient after receiving bad news about her [facility] started shaking and not responding. Pt did not follow commands. Vitals were stable except for tachycardia in 130s. Pt was transferred to the ER. [Electronically Signed on 10.24.2015 03:49 PM]
Thom Ragland MD
</br> 10/24/2015 [Electronically Signed on 10.24.2015 03:49 PM] Thom Ragland MD [facility] Vital Signs Encounters Location Location Details Encounter Type Encounter Number Reason For Visit Attending Provider ADM Date DC Date Status Source [facility] Emergency Room [id number] ALOC Sebas Hilliard 10/24/2015 10/24/2015 Active [facility] Emergency Room [id number] Sebas Hilliard 10/24/2015 10/24/2015 [facility] Procedures Procedure Code Date Perfomer Comments Source No data available for this section [facility] Plan of Care Social History Assessment and Plan Family History Value Date Source Advance Directives Order Name Results Value Date Source
== END 2016-12-04 22:33 | disposition home or self-care (01) ==
LOC: EDUNIT# 21:12 → ER 21:13
DX: M25.551 Pain in right hip (principal); G89.29 Other chronic pain; J44.9 Chronic obstructive pulmonary disease, unspecified; E78.00 Pure hypercholesterolemia, unspecified; I10 Essential (primary) hypertension; M19.90 Unspecified osteoarthritis, unspecified site; M10.9 Gout, unspecified; E11.9 Type 2 diabetes mellitus without complications; K21.9 Gastro-esophageal reflux disease without esophagitis; Z86.010 Personal history of colon polyps; Z87.442 Personal history of urinary calculi; Z85.46 Personal history of malignant neoplasm of prostate; Z95.2 Presence of prosthetic heart valve; Z87.891 Personal history of nicotine dependence; Z96.611 Presence of right artificial shoulder joint; Z96.652 Presence of left artificial knee joint
CPT/HCPCS: 99283

== ENCOUNTER 2016-12-07 21:21 | Emergency (ER) | payer MEDICARE, MEDICAID ==
[~2016-12-07] VITALS: Ht 175.3 cm; Wt 91.6 kg
[~2016-12-07 21:21] MED LIST changes: +AMLO10TA2; +CYCL10TA9 PO; +DULO30CA48; +ISOS30TA3; +KETO75CA PO; +SUMA50TA2
--- OUTSIDE RECORDS SUMMARY | 2016-12-07 21:27 | XMS REPORT | Continuity of Care Document ---
Author Author [employer] Organization [place] Address Unknown Phone Unavailable Care Team Providers Care Tax Associate Name Role Phone [employer] Unavailable Unavailable Problems Problem Status Onset Date Classification Date Reported Comments Source Generalized anxiety disorder (disorder) 10/24/2015 Diagnosis 10/25/2015 [facility] Discharge Diagnosis: Chronic kidney disease 10/24/2015 Diagnosis 10/25/2015 [facility] No data available for this section Problem 10/25/2015 [facility] Medications Medication Details Route Status Patient Instructions Ordering Provider Order Date Source Lorazepam 0.5 MG Oral Tablet [Ativan]
</br>1 Tab, TID, PO, 10 Tab, 10/28/15, 0 Number of Refills, 0, Print Requisition Inactive [facility] Allergies, Adverse Reactions, Alerts Substance Category Reaction Severity Reaction type Status Date Reported Comments Source Fentanyl Assertion upset stomach Drug allergy [facility] Morphine Assertion upset stomach Drug allergy [facility] Immunizations Immunization Date Given Site Status Last Updated Comments Source No data available for this section No data available for this section [facility] Results Order Name Results Value Reference Range Date Interpretation Comments Source ED Patient Discharge Instructions ED Patient Discharge Instructions [facility] [place] [address] Aftercare Instructions to the Patient Name: ТАТЬЯНА CROCKETT Current Date: 10/24/2015 17:53:28 : 1945 12:00 AM Chief Complaint: Anxiety reaction Visit Date: 10/24/2015 3:40 PM Primary Care Provider: Name: Not, Listed Phone: [facility] would like to thank you for [...] your provider is unable, please contact the [facility] [place] to assist you in making an appointment. Visit [email or web address] to see your health information, physician notes, [...] viral and bacterial infections, and others. Certain owbz-kat-fiqhfro pain medicines can cause renal failure when [...] For more information, visit the following links: www.smokefree.gov/sites/default/files/pdf/lkdjpqqd-nbe-wnn-accessible.pdf www.smokefree.gov www.cancer.org/healthy/stayawayfromtobacco/guidetoquittingsmoking/ 5. Most patients with chronic [...] reduced or stopped. 8. Avoid the following ldih-ysn-twlcaua medicines, or consult your doctor before using: [...] one of the following for more information: [place] [employer] [employer] Patients www.aakp.org National Kidney Foundation www.kidney.org [employer] www.kidneyfund.org National Kidney Disease Education Program (266) 2NQJRKP www.nkdep.nih.gov [NOTE: If an X-ray, EKG (cardiogram), [...] or irregularly Decrease or absent urine output [phone] [employer]. [address] [place] [address]. All rights reserved. This information is not [...] relieved by rest and mild pain reliever [phone] [employer]. [address] [place] [address]. All rights reserved. This information is not intended as a substitute for professional medical care. Always follow your healthcare professional's instructions. Name: ТАТЬЯНА CROCKETT Current Date: 10/24/2015 17:53:28 : 1945 12:00 AM Current Medication List: Keep your Medication List with you in case of emergency. Update your medication list with any changes. Include Luaz-Oye-Cbtyjuk and Herbal medications. Ativan 0.5 mg oral [...] that I should return promptly to the [facility]. I acknowledge receipt of all personal possessions brought to the Emergency Department with me. Patient: Date: __ Time: Witness: Date: _ Time: To request an electronic copy of your discharge instructions, Please contact [employer] at [phone]. Hours are Saturday through Saturday 8am to 5pm. 10/24/2015 [facility] CHEM12 eGFR 40 mL/min >=60 10/24/2015 LOW Estimated eGFR Non calculated using MDRD study equation Verified by Discern Expert.
The MDRD GFR formula is valid only for adults between 18 and 85 years of age.
[facility] CHEM12 Creatinine 1.72 mg/dL 0.40 - 1.10 10/24/2015 HI [facility] LIP Lipase 68 U/L 73 - 393 10/24/2015 LOW [facility] MG Magnesium Level 1.8 mg/dL 1.4 - 2.4 10/24/2015 N [facility] T4 T4 9.8 mcg/dL 4.7 - 13.3 10/24/2015 N [facility] TROPON Troponin <0.02 ng/mL - <=0.09 10/24/2015 N Result Range Troponin Interpretation
<0.1 ng/ml No evidence of myocardial ischemia
0.1 - 0.6 ng/ml Possible myocardial ischemia (ACS)
>0.6 ng /ml Acute myocardial infarction (AMI)
[facility] TSH TSH 3.680 uIU/mL 0.354 - 5.720 10/24/2015 N [facility] CHEM12 Potassium 3.7 mmol/L 3.5 - 5.0 10/24/2015 N [facility] Protime INR 1.06 - <=1.20 10/24/2015 N Therapeutic range for INR is 2.0-3.0, except for mechanical prosthetic valves and recurrent myocardial infarction where therapeutic range is 2.5-3.5.
[facility] Emergency Room Documents Emergency Room [...] room. Shaking uncontrollably. 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 History of Present Illness The patient [...] 69 % NA Lymph 20 % NA [place] 9 % NA Eos 1 % NA Baso 1 % NA Abs Neutro 7.27 x10^3/uL Abs Lymph 2.06 x10^3/uL Abs [place] 0.90 x10^3/uL Abs Eos 0.06 x10^3/uL Abs [...] pressure), Interventions hemodynamic management, Case review (medical case worker, nursing, family), Alternate history family. Treatment response: [...] expressed understanding.. Impression and Plan Anxiety reaction (URZ06-NC F41.1, Discharge, Medical) Chronic kidney disease (SZI10-IH N18.9, Discharge, Medical) Plan Condition: Stable. Disposition: [...]
2=moderate
3=marked/many
[facility] -Auto Diff [place] 9 % 10/24/2015 NA [facility] CBC with Diff RBC 4.81 x10^6/ uL 4.60 - 6.20 10/24/2015 N [facility] Progress Note Progress Note Patient: ТАТЬЯНА CROCKETT Age: 70 years Sex: Male : 1945 Associated Diagnoses: None Author: Thom Ragland MD General Information MET team called. Dr. Burgos statesd patient after receiving bad news about her [facility] started shaking and not responding[facility] [id number] ALOC Sebas Hilliard 10/24/2015 10/24/2015 Active [facility] Emergency Room [id number] Sebas Hilliard 10/24/2015 10/24/2015 [facility] Procedures Procedure Code Date Perfomer Comments Source No data available for this section [facility] Plan of Care Social History Assessment and Plan Family History Value Date Source Advance Directives Order Name Results Value Date Source
--- NOTE | 2016-12-07 22:08 | ED Fall/Injury ---
General Chief Complaint: Trauma-Non Activation Stated Complaint: FALL/KNEE AND HIP PAIN Nursing Triage Note: Ambulatory to ED 6 with reports of fall after his ER visit yesterday. Patient reports that he got home and his dog jumped up on the porch and he tripped over the chain. Patient denies loss of consciousness. Patient reports that he did hit his head, and it hurt last night, but no longer is bothering him. Patient reports lower back pain, bilateral hip and knee pain. Source: patient Exam Limitations: other (poor historian. very inconsistent.) History of Present Illness Time seen by provider: 22:07 Initial Comments 71-year-old male patient presents to the emergency department complains of bilateral knee pain, bilateral hip pain, and low back pain after falling. States he was trying to push his up the ramp to the porch when his feet got tangled in the dog chain and he tripped falling forward. Initially reported falling on the ramp. Now stating he fell in the driveway face first and hit his forehead on the concrete. Denies LOC or confusion. Initially patient reported falling yesterday after being seen in the emergency department by this examiner. However, I reminded patient that he was seen here on 12/04/16 by this examiner for right hip pain. Initially patient reported having a headache after falling yesterday. Now states he had a headache for 2 days, but resolved on the . Patient states his even told him that he had fallen yesterday after returning home from the [facility] emergency department visit. When asked if he could've been seen at [facility] as his PCP goes to that facility, patient states "I never go to [facility] for anything. I only come here." Patient's history is very inconsistent. Poor historian. Location Injury Occurred: home Injuries/Pain Location: back, lower extremity Context: tripped Loss of Consciousness: no loss of consciousness Modifying Factors: Worse With Movement Allergies and Home Medications Allergies Coded Allergies: morphine (Verified Allergy, Severe, HIVES, N/V, 04/25/15) fentanyl (Verified Allergy, Mild, RESTLESS, 12/07/16) Home Medications Allopurinol 300 Mg Tablet, 150 MG PO DAILY, (Reported) TAKE 1/2 OF (300MG) TAB Amlodipine Besylate 10 Mg Tablet, (Reported) Atorvastatin Calcium 40 Mg Tablet, 40 MG PO HS, (Reported) Budesonide/Formoterol Fumarate 10.2 Gm Hfa.aer.ad, 2 PUFF IH BID, (Reported) Buspirone Hcl 10 Mg Tablet, 10 MG PO HS, (Reported) Cetirizine HCl 10 Mg Tablet, 10 MG PO DAILY, (Reported) Cyclobenzaprine HCl 10 Mg Tablet, 10 MG PO Q8H PRN for SPASMS, #10 Ref 0 Prescribed by: ELPIDIO ROMAN on 12/04/162222 Duloxetine HCl 30 Mg Capsule.dr, (Reported) Ezetimibe 10 Mg Tablet, 1 TAB PO DAILY, #28 (Reported) Fenofibrate Nanocrystallized 145 Mg Tablet, 145 MG PO DAILY, (Reported) Hydrochlorothiazide 25 Mg Tablet, 25 MG PO DAILY, (Reported) Isosorbide Mononitrate 30 Mg Tab.er.24h, (Reported) Ketoprofen 75 Mg Capsule, 75 MG PO TID PRN for pain, #30 Ref 0 Prescribed by: ELPIDIO ROMAN on 12/04/162222 Lisinopril 40 Mg Tablet, 40 MG PO DAILY, (Reported) Metoprolol Succinate 100 Mg Tab.er.24h, 100 MG PO DAILY, (Reported) Pantoprazole Sodium 40 Mg Tablet.dr, 40 MG PO DAILY, (Reported) Prednisone 20 Mg Tab, 40 MG PO DAILY, #10 Ref 0 Prescribed by: ELPIDIO ROMAN on 12/04/162222 Sucralfate 1 Gm Tablet, 1 TAB PO QID PRN for ABDOMINAL PAIN, #120 (Reported) Sumatriptan Succinate 50 Mg Tablet, (Reported) Tamsulosin Hcl 0.4 Mg Cap, 0.4 MG PO DAILY, (Reported) Tiotropium [place] 18 Mcg Cap.w.dev, 2 PUFF IH DAILY, (Reported) Tramadol HCl 50 Mg Tablet, 50 MG PO Q4H, #20 Prescribed by: SLOANE LOUIS on 11/01/16 2241 Constitutional: No diaphoresis, No dizziness, No weakness Eyes: No Symptoms Reported Ears, Nose, Mouth, Throat: no symptoms reported Respiratory: No cough, No dyspnea on exertion, No short of breath Cardiovascular: No chest pain, No palpitations, No syncope Gastrointestinal: no symptoms reported Genitourinary: no symptoms reported Musculoskeletal: see HPI, back pain, joint pain, No joint swelling, No neck pain Skin: No change in color, No lumps Psychiatric/Neurological: See HPI, Denies Headache, Denies Numbness, Denies Paresthesia, Denies Seizure, Denies Tingling, Denies Weakness All Other Systems Reviewed Negative Unless Noted: Yes (Negative excepted noted.) Past Jeknxho-Rffxov-Xkekgd Hx Patient Social History Alcohol Use: Denies Use Recreational Drug Use: No Smoking Status: Former Smoker Type Used: Cigarettes Former Smoker, Quit: Nov 06, 1990 2nd Hand Smoke Exposure: No Recent Foreign Travel: No Contact w/Someone Who Travel: No Recent Infectious Disease Expo: No Recent Hopitalizations: No Physical Abuse: No Sexual Abuse: No Mistreated: No Fear: No Immunizations Up To Date Tetanus Booster (TDap): Less than 5yrs Date of Pneumonia Vaccine: Feb 06, 2015 Date of Influenza Vaccine: Jan 24, 2016 Seasonal Allergies Seasonal Allergies: Yes Surgeries History of Surgeries: Yes (CARPAL TUNNEL BILAT, BACK X3, R SHOULDER REPLACEMEN , L HIP REPLACE, L TKR) Surgeries: Abdominal, Cardiac, Joint Replacement, Orthopedic, Transurethral Resection Respiratory History of Respiratory Disorde: Yes Respiratory Disorders: Asthma, COPD Currently Using CPAP: No Currently Using BIPAP: No Cardiovascular History of Cardiac Disorders: Yes (MITRAL VALVE PROLAPSE) Cardiac Disorders: High Cholesterol, Hypertension, Valvular Heart Disease Neurological History of Neurological Disord: No Reproductive System Hx Reproductive Disorders: Yes Sexually Transmitted Disease: No HIV/AIDS: No Genitourinary History of Genitourinary Disor: Yes Genitourinary Disorders: Prostate Problems, Kidney Stones Gastrointestinal History of Gastrointestinal Di: Yes (FATTY LIVER) Gastrointestinal Disorders: Gastroesophageal Reflux, Liver Disease/Jaundice, Polyps, Esophagitis, Hiatal Hernia Musculoskeletal History of Musculoskeletal Dis: Yes Musculoskeletal Disorders: Degenerate Disk Disease, Arthritis, Back Injury, Chronic Back Pain, Gout Endocrine History of Endocrine Disorders: Yes Endocrine Disorders: Diabetes, Non-Insulin dep HEENT History of HEENT Disorders: No Loss of Vision: Bilateral Hearing Impairment: Denies Cancer History of Cancer: Yes Cancer: Prostate Psychosocial History of Psychiatric Problem: No Suicide Risk Score: 0 Integumentary History of Skin or Integumenta: No Blood Transfusions History of Blood Disorders: No Adverse Reaction to a Blood Tr: No (HAS HAD BLOOD WITH NO REACTION) Reviewed Nursing Assessment Reviewed/Agree w Nursing PMH: Yes Family Medical History Significant Family History: No Pertinent Family Hx, Other Conditions/Hx ( disorders, allergies.) Physical Exam Vital Signs Capillary Refill : Less Than 3 Seconds General Appearance: WD/WN, no apparent distress (patient is sitting on the side of the exam bed. moving all 4 extremities without difficulty. twists his back to turn and look at this examiner as I enter the room.) HEENT: PERRL/EOMI, normal ENT inspection, TMs normal, pharynx normal, other ( normocephalic, atraumatic. Absolutely NO evidence of swelling, ecchymosis, tenderness, and abrasions.) Neck: non-tender, full range of motion, supple, normal inspection Cardiovascular: normal peripheral pulses, regular rate, rhythm, no edema, no murmur Respiratory: chest non-tender, lungs clear, normal breath sounds, no respiratory distress, no accessory muscle use Peripheral Pulses: 2+ Dorsalis Pedis (R), 2+ Left Dors-Pedis (L), 2+ Radial Pulses (R), 2+ Radial Pulses (L) Gastrointestinal: non tender, soft, No distended Back: normal inspection, No decreased range of motion, No muscle spasm, vertebral tenderness (lumbar vertebral tenderness. Absolutely NO evidence of swelling, ecchymosis, tenderness, and abrasions.) Extremities: normal range of motion, normal inspection, no pedal edema, no calf tenderness, normal capillary refill, pelvis stable, other (left lateral hip TTP. Absolutely NO evidence of swelling, ecchymosis, deformity, or abrasions.) Neurologic/Psychiatric: flour mixer II-XII nml as tested, no motor/sensory deficits, alert, normal mood/affect, oriented x 3 Skin: normal color, warm/dry, No ecchymosis (Absolutely NO evidence of trauma noted.) [place] Com[place] Score Best Eye Response: (4) Open Spontaneously Best Verbal Response: (5) Oriented Best Motor Response: (6) Obeys Commands [place] Total: 15 Progress/Results/Core Measures Results/Orders My Orders Orders - ELPIDIO ROMAN Ct Lumbar Spine Wo (12/07/16 22:27) Pelvis (12/07/16 22:27) Femur, Bilateral, 2 Views (12/07/16 22:27) Cyclobenzaprine Tablet (Flexeril Tablet) (12/07/16 23:00) Hydrocodone/Apap 10/325 Tablet (Lortab 1 (12/07/16 23:00) Vital Signs/I&O Blood Pressure Mean: 119 Diagnostic Imaging Diagonstic Imaging: CT Plain Films/CT/US/NM/MRI: other (lumbar spine) Comments No evidence of fracture or malalignment. Postoperative changes are seen involving the L2 to S1 vertebrae with bilateral screws and rods. Multilevel degenerative changes are noted. Incidental findings of colonic diverticulosis. Mild to moderate atherosclerotic vascular calcifications involving the aorta. Findings per [employer] report. Reviewed: Other ([employer] report reviewed by me) Diagonstic Imaging: Xray Plain Films/CT/US/NM/MRI: pelvis, hip Comments No acute bony abnormalities noted. Reviewed: Reviewed/Discussed (reviewed with Dr. Reeder.) Diagonstic Imaging: Xray Plain Films/CT/US/NM/MRI: femur Comments No acute bony abnormality noted. Reviewed: Reviewed/Discussed (reviewed with Dr. Reeder.) Departure Communication (Admissions) Progress Notes Patient seen and evaluated. CT lumbar spine, CT head, x-ray pelvis/bilateral hips, and x-ray bilateral femurs were ordered. Patient refuses CT head. States he did not hit his head and does not have a headache or any other symptoms. I discussed risk, benefits, possible complications associated with having a CT head done today in the emergency department. All questions were answered at the time of visit. Patient voices understanding and he continues to refuse CT head. Patient states he has not taken anything today for pain. Patient also states "I hope you can give me something really strong for the pain that will help me sleep." Patient states "They usually give me a shot of dilaudid for pain." Patient case as well as refusal for CT head discussed with Dr. Reeder, he agrees with the plan of care. Impression Impression: Primary Impression: Back strain Additional Impressions: Hip pain, chronic Fall Disposition: 01 HOME, SELF-CARE Condition: Improved Departure-Patient Inst. Decision time for Depature: 23:31 Referrals: MAGGI CRUZ MD (PCP/Family) Primary Care Physician Patient Instructions: Minor Head Injury (DC), Preventing Falls in the Older Adult Add. Discharge Instructions: All discharge instructions reviewed with patient and/or family. Voiced understanding. Continue medications as prescribed in the emergency department on 08/29/17. Contact Dr. Brasher's office in [place], [place] or Dr. Cruz's office on Saturday for medication refills and all narcotic prescriptions. Ice pack for 20 minute intervals as needed for pain for 2-3 days. Then use a heating pad or pack as needed. No strenuous activity or activities that may result and head injury for 7 days. Return to the emergency department for worsened symptoms or any other concerns. ELPIDIO ROMAN Dec 07, 2016 22:07
[2016-12-07] MEDS ORDERED: CYCLOBENZAPRINE 10 MG (FLEXERIL) TAB PO STA (23:00)
[2016-12-07] MEDS ORDERED: HYDROcodone/APAP 10 MG/325 MG (LORTAB) TAB PO STA (23:00)
[2016-12-07 23:52] VITALS: BP 173/92
--- NOTE | 2016-12-08 07:17 | Diagnostic Imaging Report ---
Clinical indication: Patient fell tonight by tripping over dog [employer] Me. Patient complains of back pain, hip and knee pain on the side. Exams: 1: X-ray of both hips and femurs, total of 8 views. 2: X-ray of the pelvis AP view. Comparison: X-ray of the right hip and pelvis dated 02/22/2016. Findings: X-ray of the pelvis, both hips, and both femurs show no evidence of acute fracture or dislocation. Again seen left total hip arthroplasty with no hardware complications. Again noted lower lumbar spine posterior lumbar interbody fusion and laminectomy changes with no gross indication, as visualized. The sacrum and sacroiliac joint regions are unremarkable as visualized. Again seen surgical metallic object overlying the region of the pelvis. There are degenerative spurs involving the right patellofemoral compartment. There is a left total knee arthroplasty with no gross hardware complications. Impression: 1: X-ray of the pelvis, both hips, and both femurs show no evidence of acute fracture or dislocation. 2: Left total hip arthroplasty with no hardware complications. 3: Lower lumbar spine postop changes are seen. 4: Left total knee arthroplasty with no complications as visualized. Dictated by: Dictated on workstation # [id number]
--- NOTE | 2016-12-08 07:17 | Diagnostic Imaging Report ---
Clinical indication: Patient fell tonight by tripping over dog [employer]. Patient complains of back pain, hip and knee pain on the side. Exams: 1: X-ray of both hips and femurs, total of 8 views. 2: X-ray of the pelvis AP view. Comparison: X-ray of the right hip and pelvis dated 02/22/2016. Findings: X-ray of the pelvis, both hips, and both femurs show no evidence of acute fracture or dislocation. Again seen left total hip arthroplasty with no hardware complications. Again noted lower lumbar spine posterior lumbar interbody fusion and laminectomy changes with no gross indication, as visualized. The sacrum and sacroiliac joint regions are unremarkable as visualized. Again seen surgical metallic object overlying the region of the pelvis. There are degenerative spurs involving the right patellofemoral compartment. There is a left total knee arthroplasty with no gross hardware complications. Impression: 1: X-ray of the pelvis, both hips, and both femurs show no evidence of acute fracture or dislocation. 2: Left total hip arthroplasty with no hardware complications. 3: Lower lumbar spine postop changes are seen. 4: Left total knee arthroplasty with no complications as visualized. Dictated by: Dictated on workstation # [id number]
--- NOTE | 2016-12-08 08:01 | Diagnostic Imaging Report ---
Clinical indication: Patient tripped over his dog yesterday. Patient complains of pain and soreness in both hips and low back. Exam: Axial CT scan of the lumbar spine performed without IV contrast. Sagittal and coronal reformatted images are created. Comparison: CT scan of the thoracic and lumbar spine dated 12/26/2012. Findings: There is mild colonic diverticulosis. There is no interval lumbar spine fracture or dislocation. Again seen postop changes to the lower lumbar spine with L3-S1 posterior lumbar interbody fusion with bilateral spanning rods and pedicle screws. Intervertebral bone grafts are seen. There is interval bony fusion at the L4-L5 level. There appears to be partial fusion at the L3-L4 right posterior elements and left posterior intervertebral region. There is stable appearance of the upper directed left L3 pedicle screw extending into the inferior aspect of the L2 vertebral body with interval progression of osteolysis about the screw and increased sclerosis. There is no significant intervertebral bony fusion at the L5-S1 level concerning for pseudoarthrosis. There is L3 through L5 laminectomies. There is no hardware fractures. There is progression of vacuum disc changes and mild diffuse disc bulges involving the T10-T11 and T11-T12 levels. Again seen mild diffuse disc bulge at the T12-L1 level. L1-L2: There is interval development of diffuse disc bulge with moderate loss of intervertebral disc height and vacuum disc changes. There is severe right neural foramen narrowing which has progressed and moderate central canal narrowing which has progressed. L2-L3: There is progression of diffuse disc bulge with now moderate loss of intervertebral disc height and progression of endplate sclerosis. There is vacuum disc changes. There is at least mild to moderate central canal narrowing, moderate right neural foramen narrowing and severe left neural foramen narrowing which has progressed. L3-L4: There is decompression of the thecal sac posteriorly again seen. There is no significant bony central canal narrowing. There is moderate right neural foramen narrowing and no significant left neural foramen narrowing. The right neural foramen narrowing appears grossly similar. L4-5: There is again seen decompression of the thecal sac posteriorly with no significant bony central canal narrowing. There is stable moderate right neural foramen narrowing and moderate to severe left neural foramen narrowing. L5-S1: There is decompression of the thecal sac posteriorly with no significant bony central canal narrowing. Stable mild to moderate right neural foramen narrowing and at least mild left neural foramen narrowing. IMPRESSION: 1: There is no evidence of acute fracture or dislocation of the lumbar spine. 2: Again seen L3-S1 posterior lumbar interbody fusion and laminectomy changes. There is progression of osteolysis involving the left L3 pedicle screw which is directed superiorly and into the inferior L2 endplate. There also concern for pseudoarthrosis involving the L5-S1 level. 3: Interval progression of multilevel lumbar spine degenerative disease, as described above. I agree with [employer] report. Dictated by: Dictated on workstation # [id number]
== END 2016-12-07 23:53 | disposition home or self-care (01) ==
LOC: EDUNIT# 21:21 → ER 21:22
DX: S39.012A Strain of muscle, fascia and tendon of lower back, initial encounter (principal); G89.29 Other chronic pain; M25.551 Pain in right hip; M25.552 Pain in left hip; E11.9 Type 2 diabetes mellitus without complications; M06.9 Rheumatoid arthritis, unspecified; M47.9 Spondylosis, unspecified; E78.00 Pure hypercholesterolemia, unspecified; I10 Essential (primary) hypertension; J44.9 Chronic obstructive pulmonary disease, unspecified; Z96.662 Presence of left artificial ankle joint; Z96.611 Presence of right artificial shoulder joint; Z87.19 Personal history of other diseases of the digestive system; Z87.442 Personal history of urinary calculi; Z90.79 Acquired absence of other genital organ(s); Z87.891 Personal history of nicotine dependence; W10.2XXA Fall (on)(from) incline, initial encounter; Y92.89 Other specified places as the place of occurrence of the external cause
CPT/HCPCS: 72131; 72170; 99283

== ENCOUNTER 2017-10-04 15:25 | Outpatient (RCR) | payer MEDICARE, MEDICAID ==
[~2017-10-04 15:25] MED LIST changes: +ACHD5005 PO; -HYDR-3812 PO; -KETO75CA PO; +KETO75CA11 PO
[2017-10-20] MEDS ORDERED: ONDA4TAB11 PO (23:38)
[2017-10-20] MEDS ORDERED: ACHD5005 PO (23:38)
== END 2017-10-28 14:55 | disposition home or self-care (01) ==
PROVIDERS: ATTEND Orthopaedic Surgery
DX: M25.512 Pain in left shoulder (principal)

== ENCOUNTER 2017-10-20 20:35 | Emergency (ER) | payer MEDICARE, MEDICAID ==
[~2017-10-20] VITALS: Ht 175.3 cm; Wt 84.8 kg
--- NOTE | 2017-10-20 20:59 | ED Abdominal Pain ---
General Stated Complaint: THROWING UP,COUGH,POSS BRONCHITIS Source of Information: Patient Exam Limitations: No Limitations History of Present Illness Date Seen by Provider: Oct 20, 2017 Time Seen by Provider: 20:57 Initial Comments Patient is a 72-year-old male who presents to the emergency room with complaints of nausea, vomiting for 3 days, productive cough, abdominal pain. He reports that he has been using his breathing treatments as much as possible and still feels congested. He is not nauseated at this time he has a history is not had anything all day long because he just throws it up. Timing/Duration: 2-3 Days Severity/Quality: Mild Location: Generalized Abdomen Radiation: No Radiation Activities at Onset: None Associated Symptoms: Shortness of Air Allergies and Home Medications Allergies Coded Allergies: morphine (Verified Allergy, Severe, HIVES, N/V, 04/25/15) fentanyl (Verified Allergy, Mild, RESTLESS, 12/07/16) Home Medications Allopurinol 300 Mg Tablet, 150 MG PO DAILY, (Reported) TAKE 1/2 OF (300MG) TAB Atorvastatin Calcium 40 Mg Tablet, 40 MG PO HS, (Reported) Budesonide/Formoterol Fumarate 10.2 Gm Hfa.aer.ad, 2 PUFF IH BID, (Reported) Buspirone Hcl 10 Mg Tablet, 10 MG PO HS, (Reported) Cetirizine HCl 10 Mg Tablet, 10 MG PO DAILY, (Reported) Cyclobenzaprine HCl 10 Mg Tablet, 10 MG PO Q8H PRN for SPASMS Prescribed by: ELPIDIO ROMAN on 12/04/162222 Ezetimibe 10 Mg Tablet, 1 TAB PO DAILY, (Reported) Fenofibrate Nanocrystallized 145 Mg Tablet, 145 MG PO DAILY, (Reported) Hydrochlorothiazide 25 Mg Tablet, 25 MG PO DAILY, (Reported) Hydrocodone Bit/Acetaminophen 1 Tab Tab, 1 EACH PO Q4H PRN for PAIN-MODERATE Prescribed by: MALOU ROONEY on 10/20/178 Ketoprofen 75 Mg Capsule, 75 MG PO TID PRN for pain Prescribed by: ELPIDIO ROMAN on 12/04/162222 Lisinopril 40 Mg Tablet, 40 MG PO DAILY, (Reported) Metoprolol Succinate 100 Mg Tab.er.24h, 100 MG PO DAILY, (Reported) Ondansetron 4 Mg Tab.rapdis, 4 MG PO Q6H PRN for NAUSEA/VOMITING Prescribed by: MALOU ROONEY on 10/20/17 2338 Pantoprazole Sodium 40 Mg Tablet.dr, 40 MG PO DAILY, (Reported) Prednisone 20 Mg Tab, 40 MG PO DAILY Prescribed by: ELPIDIO ROMAN on 12/04/16 2223 Sucralfate 1 Gm Tablet, 1 TAB PO QID PRN for ABDOMINAL PAIN, (Reported) Tamsulosin Hcl 0.4 Mg Cap, 0.4 MG PO DAILY, (Reported) Tiotropium [place] 18 Mcg Cap.w.dev, 2 PUFF IH DAILY, (Reported) Tramadol HCl 50 Mg Tablet, 50 MG PO Q4H Prescribed by: SLOANE LOUIS on 11/01/16 2241 Patient Home Medication List Home Medication List Reviewed: Yes Review of Systems Constitutional: see HPI; No chills, No diaphoresis, No fever EENTM: No Symptoms Reported Respiratory: See HPI, Cough, SOA With Exertion; Denies Stridor, Denies Wheezing Cardiovascular: See HPI; Denies Chest Pain, Denies Edema, Denies Irregular Heart Rate Gastrointestinal: See HPI, Abdominal Pain, Nausea, Vomiting Genitourinary: See HPI; Denies Burning, Denies Discharge Musculoskeletal: see HPI; No back pain, No gout, No joint pain Skin: see HPI; No change in color, No change in hair/nails Psychiatric/Neurological: See HPI; Denies Anxiety, Denies Depressed, Denies Emotional Problems Endocrine: See HPI; Denies Excessive Sweating, Denies Flushing Hematologic/Lymphatic: See HPI; Denies Anemia All Other Systems Reviewed Negative Unless Noted: Yes Past Ujtgkke-Rtxmre-Wiqsmo Hx Patient Social History Type Used: Cigarettes Former Smoker, Quit: Nov 06, 1990 2nd Hand Smoke Exposure: No Recent Foreign Travel: No Contact w/Someone Who Travel: No Recent Hopitalizations: No Immunizations Up To Date Tetanus Booster (TDap): Less than 5yrs Date of Pneumonia Vaccine: Feb 06, 2015 Date of Influenza Vaccine: Jan 24, 2016 Seasonal Allergies Seasonal Allergies: Yes Past Medical History Surgeries: Yes (CARPAL TUNNEL BILAT, BACK X3, R SHOULDER REPLACEMEN, L HIP REPLACE, L TKR) Abdominal, Cardiac, Joint Replacement, Orthopedic, Transurethral Resection Respiratory: Yes Asthma, COPD Currently Using CPAP: No Currently Using BIPAP: No Cardiac: Yes (MITRAL VALVE PROLAPSE) High Cholesterol, Hypertension, Valvular Heart Disease Neurological: No Reproductive Disorders: Yes Sexually Transmitted Disease: No HIV/AIDS: No Genitourinary: Yes Prostate Problems, Kidney Stones Gastrointestinal: Yes (FATTY LIVER) Gastroesophageal Reflux, Liver Disease/Jaundice, Polyps, Esophagitis, Hiatal Hernia Musculoskeletal: Yes Degenerate Disk Disease, Arthritis, Back Injury, Chronic Back Pain, Gout Endocrine: Yes Diabetes, Non-Insulin dep HEENT: No Loss of Vision: Bilateral Hearing Impairment: Denies Cancer: Yes Prostate Psychosocial: No Integumentary: No Blood Disorders: No Adverse Reaction/Blood Tranf: No (HAS HAD BLOOD WITH NO REACTION) Family Medical History No Pertinent Family Hx, Other Conditions/Hx Physical Exam Vital Signs Capillary Refill : Height/Weight/BMI Height: 5'9" Weight: 202lbs. 1.6oz. 91.758747dn; 32.48 BMI Method:Stated General Appearance: WD/WN, no apparent distress HEENT: PERRL/EOMI, normal ENT inspection, TMs normal, pharynx normal Neck: non-tender, full range of motion, supple, normal inspection Respiratory: chest non-tender, lungs clear, normal breath sounds, no respiratory distress, no accessory muscle use Cardiovascular: regular rate, rhythm, no edema, no gallop, no JVD, no murmur Gastrointestinal: normal bowel sounds, soft, no organomegaly, no pulsatile mass , tenderness (left lower quadrant tenderness) Extremities: normal range of motion, non-tender, normal inspection, no pedal edema, no calf tenderness Back: normal inspection, no CVA tenderness, no vertebral tenderness Neurologic/Psychiatric: alert, normal mood/affect, oriented x 3 Skin: normal color, warm/dry Lymphatic: no adenopathy Progress/Results/Core Measures Results/Orders Lab Results Laboratory Tests Test 10/20/17 21:05 Range/Units White Blood Count 7.9 4.3-11.0 10^3/uL Red Blood Count 4.39 4.35-5.85 10^6/uL Hemoglobin 13.3 13.3-17.7 G/DL Hematocrit 37 L 40-54 % Mean Corpuscular Volume 85 80-99 FL Mean Corpuscular Hemoglobin 30 25-34 PG Mean Corpuscular Hemoglobin Concent 36 32-36 G/DL Red Cell Distribution Width 12.9 10.0-14.5 % Platelet Count 285 130-400 10^3/uL Mean Platelet Volume 9.5 7.4-10.4 FL Neutrophils (%) (Auto) 67 42-75 % Lymphocytes (%) (Auto) 20 12-44 % Monocytes (%) (Auto) 11 0-12 % Eosinophils (%) (Auto) 2 0-10 % Basophils (%) (Auto) 0 0-10 % Neutrophils # (Auto) 5.3 1.8-7.8 X 10^3 Lymphocytes # (Auto) 1.6 1.0-4.0 X 10^3 Monocytes # (Auto) 0.8 0.0-1.0 X 10^3 Eosinophils # (Auto) 0.1 0.0-0.3 10^3/uL Basophils # (Auto) 0.0 0.0-0.1 10^3/uL Sodium Level 125 *L 135-145 MMOL/L Potassium Level 4.1 3.6-5.0 MMOL/L Chloride Level 92 L 98-107 MMOL/L Carbon Dioxide Level 19 L 21-32 MMOL/L Anion Gap 14 5-14 MMOL/L Blood Urea Nitrogen 16 7-18 MG/DL Creatinine 1.18 0.60-1.30 MG/DL Estimat Glomerular Filtration Rate > 60 BUN/Creatinine Ratio 14 Glucose Level 93 70-105 MG/DL Calcium Level 10.2 H 8.5-10.1 MG/DL Total Bilirubin 0.9 0.1-1.0 MG/DL Aspartate Amino Transf (AST/SGOT) 30 5-34 U/L Alanine Aminotransferase (ALT/SGPT) 15 0-55 U/L Alkaline Phosphatase 50 40-136 U/L Total Protein 7.0 6.4-8.2 GM/DL Albumin 4.4 3.2-4.5 GM/DL Amylase Level 62 25-125 U/L Lipase 17 8-78 U/L My Orders Orders - ADALBERTO WINKLER Comprehensive Metabolic Panel (10/20/17 20:53) Lipase (10/20/17 20:53) Amylase (10/20/17 20:53) Saline Lock/Iv-Start (10/20/17 20:53) Cbc With Automated Diff (10/20/17 20:53) Chest Pa/Lat (2 View) (10/20/17 20:53) Hydromorphone Injection (Dilaudid Inje (10/20/17 21:00) Ns Iv 1000 Ml (Sodium Chloride 0.9%) (10/20/17 21:45) Hydromorphone Injection (Dilaudid Inje (10/20/17 22:30) Ct Abdomen/Pelvis W (10/20/17 22:20) Iohexol Injection (Omnipaque 350 Mg/Ml 1 (10/20/17 22:30) Ns (Ivpb) (Sodium Chloride 0.9%) (10/20/17 22:30) Iv Push [employer] Specialist Ed (10/20/17 ) Medications Given in ED Vital Signs/I&O Progress Progress Note : Progress Note Patient agrees with plans for discharge and follow-up with Dr. Cruz. Patient was given return precautions. Diagnostic Imaging Diagonstic Imaging: Xray Plain Films/CT/US/NM/MRI: chest Comments VIA [facility]. [place], [place] NAME: ТАТЬЯНА [facility]OCKET[facility] REC#: [id number] PT STATUS: REG ER : 1945 PHYSICIAN: ADALBERTO WINKLER ADMIT DATE: 10/20/17/ER Draft Date of Exam:10/20/17 CHEST PA/LAT (2 VIEW) Clinical indication: Patient with cough and shortness breath x 3 days. Exam: Chest x-ray PA and lateral views. Comparisons: Chest x-ray dated 11/08/2015. Findings: Lungs/pleura: Lungs are clear. There is no pneumothorax. There is no pleural effusion. Mediastinum: Unremarkable. Pulmonary vasculature: Unremarkable. Heart: Unremarkable. Bones/extrathoracic soft tissue: There are degenerative spurs involving the spine. Reverse right total shoulder arthroplasty is again seen. Impression: There is no radiographic evidence of acute cardiopulmonary process. Dictated on workstation # [id number] Dict: 10/20/172136 Trans: 10/20/172138 [facility] [id number] Interpreted by: GINA RICHMOND MD Electronically signed by: Departure Impression Primary Impression: Abdominal pain Additional Impression: Nausea and vomiting Disposition: 01 HOME, SELF-CARE Condition: Stable/Unchanged Departure-Patient Inst. Decision time for Depature: 23:41 Referrals: SHEA PAULSON II, DO (PCP) Primary Care Physician MAGGI CRUZ MD Patient Instructions: Nausea and Vomiting, Adult Add. Discharge Instructions: Take medications as directed. Continue to use your home medications as prescribed. Follow up with Dr. Cruz within 1 week for recheck. Call first thing tomorrow morning for appointment time. Return back to the emergency room for any concerns as needed such as increased pain, nausea, vomiting, shortness of breath. Scripts Ondansetron (Ondansetron Odt) 4 Mg Tab.rapdis 4 MG PO Q6H PRN for NAUSEA/VOMITING, #8 TAB 0 Refills Prov: MALOU ROONEY MD 10/20/17 Hydrocodone Bit/Acetaminophen (Hydrocodone/Acetaminophen 5/325mg Tablet) 1 Tab Tab 1 EACH PO Q4H PRN for PAIN-MODERATE, #10 TAB 0 Refills Prov: MALOU ROONEY MD 10/20/17 ADALBERTO WINKLER Oct 20, 2017 20:59
[2017-10-20] MEDS ORDERED: HYDROmorphone 1 MG/ML (DILAUDID) 1 ML SYRINGE IV ONE ×2 (21:00→22:30)
[2017-10-20 21:19] LABS: BASOPHILS % (AUTO) 0 % (0-10); EOSINOPHILS # (AUTO) 0.1 10^3/uL (0.0-0.3); EOSINOPHILS % (AUTO) 2 % (0-10); HEMATOCRIT 37 % (40-54); HEMOGLOBIN 13.3 G/DL (13.3-17.7); LYMPHOCYTES # (AUTO) 1.6 X 10^3 (1.0-4.0); LYMPHOCYTES % (AUTO) 20 % (12-44); MEAN CORPUSCULAR HEMOGLOBIN 30 PG (25-34); MEAN CORPUSCULAR HGB CONC 36 G/DL (32-36); MEAN CORPUSCULAR VOLUME 85 FL (80-99); MEAN PLATELET VOLUME 9.5 FL (7.4-10.4); MONOCYTES # (AUTO) 0.8 X 10^3 (0.0-1.0); MONOCYTES % (AUTO) 11 % (0-12); NEUTROPHILS # (AUTO) 5.3 X 10^3 (1.8-7.8); NEUTROPHILS % (AUTO) 67 % (42-75); PLATELET COUNT 285 10^3/uL (130-400); RED BLOOD COUNT 4.39 10^6/uL (4.35-5.85); RED CELL DISTRIBUTION WIDTH 12.9 % (10.0-14.5); WHITE BLOOD COUNT 7.9 10^3/uL (4.3-11.0)
[2017-10-20 21:36] LABS: ALANINE AMINOTRANSFERASE 15 U/L (0-55); ALBUMIN 4.4 GM/DL (3.2-4.5); ALKALINE PHOSPHATASE 50 U/L (40-136); AMYLASE 62 U/L (25-125); BILIRUBIN,TOTAL 0.9 MG/DL (0.1-1.0); BUN/CREATININE RATIO 14; CALCIUM 10.2 MG/DL (8.5-10.1); CARBON DIOXIDE 19 MMOL/L (21-32); CHLORIDE 92 MMOL/L (98-107); CREATININE SERUM 1.18 MG/DL (0.60-1.30); GFR ESTIMATED > 60; GLUCOSE 93 MG/DL (70-105); LIPASE 17 U/L (8-78); POTASSIUM 4.1 MMOL/L (3.6-5.0)
--- NOTE | 2017-10-20 21:40 | Diagnostic Imaging Report ---
Clinical indication: Patient with cough and shortness breath x 3 days. Exam: Chest x-ray PA and lateral views. Comparisons: Chest x-ray dated 11/08/2015. Findings: Lungs/pleura: Lungs are clear. There is no pneumothorax. There is no pleural effusion. Mediastinum: Unremarkable. Pulmonary vasculature: Unremarkable. Heart: Unremarkable. Bones/extrathoracic soft tissue: There are degenerative spurs involving the spine. Reverse right total shoulder arthroplasty is again seen. Impression: There is no radiographic evidence of acute cardiopulmonary process. Dictated by: Dictated on workstation # [id number]
[2017-10-20] MEDS ORDERED: NS IV 1000 ML 1,000 ML IV SCH (21:45)
[2017-10-20 21:51] LABS: SODIUM 125 MMOL/L (135-145)
[2017-10-20] MEDS ORDERED: IOHEXOL 350 MG/ML 100 ML (OMNIPAQUE 350) VIAL IV ONE (22:30)
[2017-10-20] MEDS ORDERED: NS 250 ML (IVPB) BAG IV ONE (22:30)
[2017-10-20] MEDS ORDERED: ONDA4TAB11 PO (23:38)
[2017-10-20] MEDS ORDERED: ACHD5005 PO (23:38)
[2017-10-20 23:52] VITALS: BP 135/90
--- NOTE | 2017-10-21 07:35 | Diagnostic Imaging Report ---
PROCEDURE: CT abdomen and pelvis with contrast. TECHNIQUE: Multiple contiguous axial images were obtained through the abdomen and pelvis after administration of intravenous contrast. INDICATION: Vomiting, cough. History of cholecystectomy, appendectomy, stomach surgery, partial colon removal and prostate cancer. COMPARISON: 07/12/2014. FINDINGS: The lung bases are clear. The heart is normal in size. No pericardial effusion is seen. No focal hepatic lesion is seen. Cholecystectomy clips are noted. Heterogeneous enhancement of the spleen is thought to be due to early perfusion. The adrenal glands appear normal. The pancreas appears normal. Simple appearing renal cysts are seen bilaterally. There appears to be chronic scarring of the right kidney. No hydronephrosis is seen bilaterally. The bowel loops are nondistended. Anastomotic sutures are noted in the anterior mid abdomen. There is diverticulosis of the sigmoid colon without diverticulitis. No free fluid or free air seen. No acute osseous abnormality is seen. There are bilateral hip arthroplasties, and fusion hardware of the lumbar spine. The left L3 pedicle screw extends into the L2-L3 disc space, unchanged since 2014. IMPRESSION: 1. No bowel obstruction or acute abdominopelvic abnormality seen. 2. Colonic diverticulosis without diverticulitis. Dictated by: Dictated on workstation # [id number]
--- OUTSIDE RECORDS SUMMARY | 2017-10-21 13:10 | XMS REPORT | Continuity of Care Document ---
Author Author [facility] Organization [facility] Address Unknown Phone Unavailable Allergies Active Description Code Type Severity Reaction Onset Reported/Identified Relationship to Patient Clinical Status Yes FENTANYL FENTANYL MODERATE Yes MORPHINE MORPHINE MODERATE Yes FENTANYL MODERATE DERMATOLOGICAL - TANESHA Yes MORPHINE MODERATE DERMATOLOGICAL - TANESHA Yes morphine [id number] Drug Allergy Severe N/A 07/19/2012 Yes fentanyl [id number] Drug Allergy Unknown N/A 08/19/2013 Yes morphine [id number] Drug Allergy Severe HIVES, N/V 12/07/2016 Yes fentanyl [id number] Drug Allergy Mild RESTLESS 12/07/2016 Medications Medication Packaging Start Date Stop Date Route Dosage Sig NITROSTAT TAB 0.4 MG (NITROQUICK) MG 09/08/2016 09/08/2016 ONCE&1706 NORMAL SALINE 1000CC IV BAG INJ 0.9 % (NS 1000CC IV BAG) ml 09/08/2016 09/08/2016 ONCE&1707 NITROSTAT TAB 0.4 MG (NITROQUICK) MG 09/08/2016 09/08/2016 ONCE&1707 GI COCKTAIL SINGLE DOSE LIQ (GRASSHOPPER) ML 09/08/2016 09/08/2016 ONCE&1709 ASA 81MG CHEWABLE TAB 81 MG (BABY ASPIRIN) TABS 09/08/2016 09/08/2016 ONCE&1710 Hydromorphone inj 2mg/cc vial (Dilaudid) MG 09/08/2016 09/08/2016 PRN ONCE Hydromorphone inj 2mg/cc vial (Dilaudid) MG 09/08/2016 09/08/2016 PRN ONCE ASA 81MG CHEWABLE TAB 81 MG (BABY ASPIRIN) TABS 09/09/2016 09/15/2016 Daily&0900 LORAZEPAM 1CC VIAL INJ 2 MG/CC (ATIVAN VIAL) MG 11/25/2016 11/25/2016 ONCE&1425 KETOROLAC VIAL INJ 15 MG/CC (TORADOL VIAL) MG 11/25/2016 11/25/2016 ONCE&1426 ONDANSETRON VIAL INJ 4 MG/2CC (ZOFRAN 2CC VIAL) MG 11/25/2016 11/25/2016 ONCE&1426 LORAZEPAM 1CC VIAL INJ 2 MG/CC (ATIVAN VIAL) MG 11/25/2016 11/25/2016 ONCE&1426 NORMAL SALINE 1000CC IV BAG INJ 0.9 % (NS 1000CC IV BAG) ml 11/25/2016 11/25/2016 ONCE&1426 LORAZEPAM TAB 1 MG (ATIVAN) MG 11/25/2016 PRN ONCE Hydromorphone inj 2mg/cc vial (Dilaudid) MG 01/22/2017 01/22/2017 ONCE&1239 NORMAL SALINE 500CC IV BAG INJ 0.9 % (NS 500CC IV BAG) ml 01/22/2017 01/22/2017 ONCE&1418 Hydromorphone inj 2mg/cc vial (Dilaudid) MG 01/22/2017 01/22/2017 PRN ONCE Problems Date Dx Coded Attending Type Code Diagnosis Diagnosed By 07/21/2012 Ot 272.4 HYPERLIPIDEMIA NEC/NOS 07/21/2012 Ot 401.9 HYPERTENSION NOS 07/21/2012 Ot 414.01 CORONARY ATHEROSCLEROSIS OF [place] CORON 07/21/2012 Ot 424.1 AORTIC VALVE DISORDER 07/21/2012 Ot 496 CHR AIRWAY OBSTRUCT NEC 07/21/2012 Ot 530.81 ESOPHAGEAL REFLUX 07/21/2012 Ot 786.50 CHEST PAIN NOS 07/21/2012 Ot V58.69 OTH MED,LT, CURRENT USE 10/01/2012 ISATU MCDONALD DO Ot 719.45 JOINT PAIN-PELVIS 10/01/2012 ISATU MCDONALD DO Ot V43.65 KNEE JOINT REPLACEMENT STATUS 10/01/2012 ISATU MCDONALD DO Ot V45.89 POSTSURGICAL STATES NEC 10/23/2012 RICHIE IRVIN, THOMAS Fairchild Ot 272.0 PURE HYPERCHOLESTEROLEM 10/23/2012 THOMAS QUIROZ MD Ot 300.00 ANXIETY STATE NOS 10/23/2012 THOMAS QUIROZ MD Ot 401.9 HYPERTENSION NOS 10/23/2012 THOMAS QUIROZ MD Ot 414.01 CORONARY ATHEROSCLEROSIS OF [place] CORON 10/23/2012 THOMAS QUIROZ MD Ot 493.20 CHRONIC OBSTRUCTIVE ASTHMA, NOS 10/23/2012 THOMAS QUIROZ MD Ot 530.81 ESOPHAGEAL REFLUX 10/23/2012 THOMAS QUIROZ MD Ot 599.0 URIN TRACT INFECTION NOS 10/23/2012 THOMAS QUIROZ MD Ot 600.00 HYPERTROPHY (BENIGN) OF PROSTATE W/O URI 10/23/2012 THOMAS QUIROZ MD Ot 787.01 NAUSEA WITH VOMITING 10/23/2012 THOMAS QUIROZ MD Ot 787.91 DIARRHEA 10/23/2012 THOMAS QUIROZ MD Ot 789.00 ABDOMINAL PAIN, UNSPECIFIED SITE 10/23/2012 THOMAS QUIROZ MD Ot V15.82 HISTORY OF TOBACCO USE 10/23/2012 THOMAS QUIROZ MD Ot V40.9 MENTAL/BEHAVIOR PROB NOS 10/23/2012 THOMAS QUIROZ MD Ot V58.66 LONG-TERM (CURRENT) USE OF ASPIRIN 12/26/2012 SLOANE LOUIS DO Ot 847.9 SPRAIN OF BACK NOS 12/26/2012 SLOANE LOUIS DO Ot 924.01 CONTUSION OF HIP 12/26/2012 SLOANE LOUIS DO Ot 924.11 CONTUSION OF KNEE 12/26/2012 SLOANE LOUIS DO Ot 959.19 OTH INJURY OF OTHER SITES OF TRUNK 12/26/2012 SLOANE LOUIS DO Ot E000.8 OTHER EXTERNAL CAUSE STATUS 12/26/2012 SLOANE LOUIS DO Ot E849.0 ACCIDENT IN HOME 12/26/2012 SLOANE LOUIS DO Ot E888.9 FALL NOS 12/19/2013 ELPIDIO BELLE Ot 682.4 CELLULITIS OF HAND 12/19/2013 ELPIDIO BELLE Ot 729.81 SWELLING OF LIMB 12/20/2013 TITO COLE DO Ot 682.4 CELLULITIS OF HAND 03/10/2014 RADHA LAU Ot 424.1 03/10/2014 KAUSHIK SHEN MD Ot 211.1 03/10/2014 KAUSHIK SHEN MD Ot 530.11 03/10/2014 KAUSHIK SHEN MD Ot 535.50 03/10/2014 KAUSHIK SHEN MD Ot 553.3 03/10/2014 KAUSHIK SHEN MD Ot V72.84 03/10/2014 JOSEPH LAU MD Ot 724.5 03/10/2014 JOSEPH LAU MD Ot 787.02 03/10/2014 JOSEPH LAU MD Ot 789.00 03/11/2014 TITO COLE DO Ot 496 CHR AIRWAY OBSTRUCT NEC 03/11/2014 TITO COLE DO Ot 530.81 ESOPHAGEAL REFLUX 03/11/2014 TITO COLE DO Ot 786.50 CHEST PAIN NOS 03/11/2014 TITO COLE DO Ot 786.59 CHEST PAIN NEC 03/11/2014 TITO COLE DO Ot 790.99 BLOOD EXAM - OT NONSPECIFIC FINDINGS 03/11/2014 TITO COLE DO Ot V58.69 OT MED,LT,CURRENT USE 04/06/2014 JOSEPH LAU MD Ot 496 04/07/2014 JOSEPH LAU MD Ot 496 04/07/2014 JOSEPH LAU MD Ot 786.50 04/07/2014 JOSEPH LAU MD Ot 796.4 04/07/2014 JOSEPH LAU MD Ot 496 04/12/2014 JOSEPH LAU MD Ot 496 04/12/2014 JOSEPH LAU MD Ot 786.50 04/12/2014 JOSEPH LAU MD Ot 796.4 06/15/2014 Ot 596.0 BLADDER NECK OBSTRUCTION 06/15/2014 Ot 600.00 HYPERTROPHY (BENIGN) OF PROSTATE W/O URI 06/15/2014 Ot 605 REDUN PREPUCE PHIMOSIS 06/15/2014 Ot 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 06/15/2014 Ot V58.69 OT MED,LT, CURRENT USE 08/10/2014 ANDIE IRVIN, SAV Valencia Ot 185 08/13/2014 WILLIS NAZARIO DO Ot 272.4 08/13/2014 WILLIS NAZARIO DO Ot 401.9 08/13/2014 WILLIS NAZARIO DO Ot 414.00 08/13/2014 WILLIS NAZARIO DO Ot 496 08/27/2014 WILLIS NAZARIO DO Ot 272.4 08/27/2014 WILLIS NAZARIO DO M Ot 401.9 08/27/2014 WILLIS NAZARIO DO M Ot 414.00 08/27/2014 WILLIS NAZARIO DO M Ot 496 09/04/2014 GARY GIBBS APRN Ot 786.2 09/04/2014 JOSE D IRVIN, DIPESH E Ot 185 09/17/2014 JOSE D IRVIN, DIPESH E Ot 185 09/28/2014 ANDIE IRVIN, SAV Valencia Ot 185 10/01/2014 GARY GIBBS APRN Ot 786.2 11/02/2014 JOSE D IRVIN, DIPESH Wall Ot 185 MALIGN NEOPL PROSTATE 11/02/2014 JOSE D IRVIN, DIPESH E Ot V58.0 ENCOUNTER FOR RADIOTHERAPY 11/05/2014 JOSE D IRVIN, DIPESH Wall Ot 185 11/08/2014 JOSE D IRVIN, DIPESH Wall Ot 185 11/09/2014 JOSE D IRVIN, DIPESH Wall Ot 185 11/16/2014 RADHA LAU PROJECT ADMINISTRATOR Ot 424.1 11/16/2014 HERMELINDA IRVIN, KAUSHIK Ot 211.1 11/16/2014 HERMELINDA IRVIN, KAUSHIK Ot 530.11 11/16/2014 HERMELINDA IRVIN, KAUSHIK Ot 535.50 11/16/2014 HERMELINDA IRVIN, JOSHAAKI Ot 553.3 11/16/2014 HERMELINDA IRVIN, JOSHAAKI Ot V72.84 11/16/2014 SID IRVIN, JOSEPH Merchant Ot 724.5 11/16/2014 SID IRVIN, JOSEPH Merchant Ot 787.02 11/16/2014 SID IRVIN, JOSEPH Merchant Ot 789.00 11/16/2014 SID IRVIN, JOSEPH Merchant Ot 496 11/16/2014 SID IRVIN, JOSEPH Merchant Ot 496 11/16/2014 SID IRVIN, JOSEPH Merchant Ot 786.50 11/16/2014 SID IRVIN, JOSEPH Merchant Ot 796.4 11/16/2014 WILLIS NAZARIO DO M Ot 272.4 11/16/2014 WILLIS NAZARIO DO M Ot 401.9 11/16/2014 WILLIS NAZARIO DO M Ot 414.00 11/16/2014 WILLIS NAZARIO DO M Ot 496 11/16/2014 Ot 605 11/16/2014 Ot 607.1 11/16/2014 Ot V72.83 11/16/2014 Ot V74.8 11/16/2014 ANDIE IRVIN, SAV A Ot 185 11/16/2014 GARY GIBBS APRN Ot 786.2 11/16/2014 JOSE D IRVIN, DIPESH E Ot 185 11/16/2014 ARNOLD IRVIN FAC, ALI FACP CCDS Ot 185 MALIGN NEOPL PROSTATE 11/16/2014 ARNOLD IRVIN FACC, ALI FACP CCDS Ot 786.59 CHEST PAIN NEC 11/16/2014 ARNOLD IRVIN FACC, ALI FACP CCDS Ot V15.3 HX OF IRRADIATION 11/16/2014 ARNOLD IRVIN FACC, ALI FACP CCDS Ot V15.82 HISTORY OF TOBACCO USE 11/16/2014 ARNOLD IRVIN FACC, ALI FACP CCDS Ot V58.69 OTH MED,LT,CURRENT USE 11/29/2014 JOSE D IRVIN, DIPESH Wall Ot 185 12/06/2014 JOSE D IRVIN, DIPESH E Ot 185 12/10/2014 JOSE D IRVIN, DIPESH E Ot 185 01/05/2015 JOSE D IRVIN, DIPESH E Ot 185 MALIGN NEOPL PROSTATE 01/05/2015 JOSE D IRVIN, DIPESH Wall Ot V58.0 ENCOUNTER FOR RADIOTHERAPY 03/16/2015 KAUSHIK SHEN MD Ot K21.0 GASTRO-ESOPHAGEAL REFLUX DISEASE WITH ES 03/16/2015 KAUSHIK SHEN MD Ot K25.9 GASTRIC ULCER, UNSP ACUTE OR CHRONIC, 03/16/2015 KAUSHIK SHEN MD Ot K29.70 GASTRITIS, UNSPECIFIED, WITHOUT BLEEDING 03/16/2015 KAUSHIK SHEN MD Ot K31.7 POLYP OF STOMACH AND DUODENUM 03/16/2015 KAUSHIK SHEN MD Ot K44.9 DIAPHRAGMATIC HERNIA WITHOUT OBSTRUCTION 03/21/2015 KAUSHIK SHEN MD Ot K76.0 03/21/2015 KAUSHIK SHEN MD Ot R10.11 04/07/2015 KAUSHIK SHEN MD Ot K76.0 04/07/2015 HERMELINDA IRVIN, KAUSHIK Ot R10.11 04/12/2015 KAUSHIK SHEN MD Ot K76.0 04/12/2015 HERMELINDA IRVIN, KAUSHIK Ot R10.11 04/19/2015 HERMELINDA IRVIN, KAUSHIK Ot R10.11 04/22/2015 HERMELINDA IRVIN, KAUSHIK Ot R10.11 04/25/2015 DIPESH JEFFERY MD E Ot 185 04/25/2015 JOSE D IRVIN, DIPESH E Ot 185 04/28/2015 HERMELINDA IRVIN, KAUSHIK Ot K81.1 CHRONIC CHOLECYSTITIS 05/01/2015 BROOKS DIA REVERBERATORY SKIMMER Ot G89.18 OTHER ACUTE POSTPROCEDURAL PAIN 05/01/2015 BROOKS DIA REVERBERATORY SKIMMER Ot R11.2 NAUSEA WITH VOMITING, UNSPECIFIED 05/01/2015 BROOKS DAI REVERBERATORY SKIMMER Ot Z90.49 ACQUIRED ABSENCE OF OTHER SPECIFIED PART 05/24/2015 HERMELINDA IRVIN, KAUSHIK Ot K82.8 05/24/2015 HERMELINDA IRVIN, KAUSHIK Ot Z01.812 05/24/2015 HERMELINDA IRVIN, MLIADISKI Ot Z11.2 06/01/2015 HERMELINDA IRVIN, KAUSHIK Ot K82.8 06/01/2015 HERMELINDA IRVIN, JOSHAAASHLY Ot Z01.812 06/01/2015 HERMELINDA IRVIN, KAUSHIK Ot Z11.2 06/11/2015 SID IRVIN, ALEX Valencia Ot L03.012 CELLULITIS OF LEFT FINGER 08/22/2015 NEVIN IRVIN, MALOU Merchant Ot G89.29 OTHER CHRONIC PAIN 08/22/2015 MALOU ROONEY MD Ot M54.5 LOW BACK PAIN 08/23/2015 MALOU ROONEY MD Ot G89.29 OTHER CHRONIC PAIN 08/23/2015 MALOU ROONEY MD Ot M54.5 LOW BACK PAIN 10/10/2015 RICHIE IRVIN, THOMAS T Ot M16.11 UNILATERAL PRIMARY OSTEOARTHRITIS, RIGHT 10/13/2015 RICHIE IRVIN, THOMAS T Ot M16.11 UNILATERAL PRIMARY OSTEOARTHRITIS, RIGHT 11/08/2015 RICHIE IRVIN, THOMAS T Ot F41.9 ANXIETY DISORDER, UNSPECIFIED 11/08/2015 RICHIE IRVIN, THOMAS T Ot R07.89 OTHER CHEST PAIN 11/08/2015 THOMAS QUIROZ MD T Ot R07.9 CHEST PAIN, UNSPECIFIED 11/09/2015 THOMAS QUIROZ MD T Ot F41.9 ANXIETY DISORDER, UNSPECIFIED 11/09/2015 RICHIE IRVIN, THOMAS T Ot R07.89 OTHER CHEST PAIN 11/09/2015 BRUEGGEMANN MD, THOMAS T Ot R07.9 CHEST PAIN, UNSPECIFIED 02/22/2016 ELPIDIO BELLE Ot E11.9 TYPE 2 DIABETES MELLITUS WITHOUT COMPLIC 02/22/2016 ELPIDIO BELLE Ot J44.9 CHRONIC OBSTRUCTIVE PULMONARY DISEASE, U 02/22/2016 ELPIDIO BELLE Ot M19.071 PRIMARY OSTEOARTHRITIS, RIGHT ANKLE AND 02/22/2016 ELPIDIO BELLE Ot S09.90XA UNSPECIFIED INJURY OF HEAD, INITIAL ENCO 02/22/2016 ELPIDIO BELLE Ot S50.311A ABRASION OF RIGHT ELBOW, INITIAL ENCOUNT 02/22/2016 ELPIDIO BELLE Ot S79.911A UNSPECIFIED INJURY OF RIGHT HIP, INITIAL 02/22/2016 ELPIDIO BELLE Ot S93.401A SPRAIN OF UNSPECIFIED LIGAMENT OF RIGHT 02/22/2016 ELPIDIO BELLE Ot W01.0XXA FALL SAME LEV FROM SLIP/TRIP W/O STRIKE 02/22/2016 ELPIDIO BELLE Ot Y92.[address] OR NOT APPLICABLE 02/22/2016 ELPIDIO BELLE Ot Y93.89 ACTIVITY, OTHER SPECIFIED 02/22/2016 ELPIDIO BELLE Ot Y99.8 OTHER EXTERNAL CAUSE STATUS 02/22/2016 ELPIDIO BLELE Ot Z23 ENCOUNTER FOR IMMUNIZATION 02/22/2016 ELPIDIO BELLE Ot Z79.899 OTHER LONGTERM (CURRENT) DRUG THERAPY 02/22/2016 ELPIDIO BELLE Ot Z87.891 PERSONAL HISTORY OF NICOTINE DEPENDENCE 02/22/2016 ELPIDIO BELLE Ot Z96.642 PRESENCE OF LEFT ARTIFICIAL HIP JOINT 02/23/2016 RADHA LAU Ot 424.1 AORTIC VALVE DISORDER 02/23/2016 KAUSHIK SHEN MD Ot 211.1 BENIGN NEOPLASM STOMACH 02/23/2016 KAUSHIK SHEN MD Ot 530.11 REFLUX ESOPHAGITIS 02/23/2016 KAUSHIK SHEN MD Ot 535.50 UNSP GASTRITIS GASTRODUODENITIS W/O ME 02/23/2016 KAUSHIK SHEN MD Ot 553.3 DIAPHRAGMATIC HERNIA 02/23/2016 KAUSHIK SHEN MD Ot V72.84 EXAM PRE-OPERATIVE NOS 02/23/2016 SID IRVIN, JOSEPH Merchant Ot 724.5 BACKACHE NOS 02/23/2016 SID IRVIN, JOSEPH Merchant Ot 787.02 NAUSEA ALONE 02/23/2016 SID IRVIN, JOSEPH Merchant Ot 789.00 ABDOMINAL PAIN, UNSPECIFIED SITE 02/23/2016 SID IRVIN, JOSEPH Merchant Ot 496 CHR AIRWAY OBSTRUCT NEC 02/23/2016 JOSEPH LAU MD Ot 496 CHR AIRWAY OBSTRUCT NEC 02/23/2016 JOSEPH LAU MD Ot 786.50 CHEST PAIN NOS 02/23/2016 JOSEPH LAU MD Ot 796.4 ABN CLINICAL FINDING NEC 02/23/2016 WILLIS NAZARIO DO Ot 272.4 HYPERLIPIDEMIA NEC/NOS 02/23/2016 WILLIS NAZARIO DO Ot 401.9 HYPERTENSION NOS 02/23/2016 WILLIS NAZARIO DO Ot 414.00 CORON ATHEROSCLER NOS TYPE VESSEL, NATIV 02/23/2016 WILLIS NAZARIO DO Ot 496 CHR AIRWAY OBSTRUCT NEC 02/23/2016 Ot 605 REDUN PREPUCE PHIMOSIS 02/23/2016 Ot 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 02/23/2016 Ot V72.83 EXAM PRE- OPERATIVE NEC 02/23/2016 Ot V74.8 SCREEN- BACTERIAL DIS NEC 02/23/2016 ANDIE IRVIN, SAV Valencia Ot 185 MALIGN NEOPL PROSTATE 02/23/2016 GARY GIBBS APRN Ot 786.2 COUGH 02/23/2016 JOSE D IRVIN, DIPESH E Ot 185 02/23/2016 KAUSHIK SHEN MD Ot K76.0 FATTY (CHANGE OF) LIVER, NOT ELSEWHERE C 02/23/2016 KAUSHIK SHEN MD Ot R10.11 RIGHT UPPER QUADRANT PAIN 02/23/2016 KAUSHIK SHEN MD Ot K27.9 PEPTIC ULC, SITE UNSP, UNSP AC OR CHR 02/23/2016 KAUSHIK SHEN MD Ot Z01.818 ENCOUNTER FOR OTHER PREPROCEDURAL EXAMIN 02/23/2016 KAUSHIK SHEN MD Ot R10.11 RIGHT UPPER QUADRANT PAIN 02/23/2016 KAUSHIK SHEN MD Ot K82.8 OTHER SPECIFIED DISEASES OF GALLBLADDER 02/23/2016 KAUSHIK SHEN MD, Ot Z01.812 ENCOUNTER FOR PREPROCEDURAL LABORATORY E 02/23/2016 KAUSHIK SHEN MD Ot Z11.2 ENCOUNTER FOR SCREENING FOR OTHER BACTER 03/07/2016 ELPIDIO BELLE Ot E11.9 TYPE 2 DIABETES MELLITUS WITHOUT COMPLIC 03/07/2016 ELPIDIO BELLE Ot J44.9 CHRONIC OBSTRUCTIVE PULMONARY DISEASE, U 03/07/2016 ELPIDIO BELLE Ot M19.071 PRIMARY OSTEOARTHRITIS, RIGHT ANKLE AND 03/07/2016 ELPIDIO BELLE Ot S09.90XA UNSPECIFIED INJURY OF HEAD, INITIAL ENCO 03/07/2016 ELPIDIO BELLE Ot S50.311A ABRASION OF RIGHT ELBOW, INITIAL ENCOUNT 03/07/2016 ELPIDIO BELLE Ot S79.911A UNSPECIFIED INJURY OF RIGHT HIP, INITIAL 03/07/2016 ELPIDIO BELLE Ot S93.401A SPRAIN OF UNSPECIFIED LIGAMENT OF RIGHT 03/07/2016 ELPIDIO BELLE Ot W01.0XXA FALL SAME LEV FROM SLIP/TRIP W/O STRIKE 03/07/2016 ELPIDIO BELLE Ot Y92.[address] OR NOT APPLICABLE 03/07/2016 ELPIDIO BELLE Ot Y93.89 ACTIVITY, OTHER SPECIFIED 03/07/2016 ELPIDIO BELLE Ot Y99.8 OTHER EXTERNAL CAUSE STATUS 03/07/2016 ELPIDIO BELLE Ot Z23 ENCOUNTER FOR IMMUNIZATION 03/07/2016 ELPIDIO BELLE Ot Z79.899 OTHER LONGTERM (CURRENT) DRUG THERAPY 03/07/2016 ELPIDIO BELLE Ot Z87.891 PERSONAL HISTORY OF NICOTINE DEPENDENCE 03/07/2016 ELPIDIO BELLE Ot Z96.642 PRESENCE OF LEFT ARTIFICIAL HIP JOINT 06/04/2016 LISSET GRANADO Ot E78.4 OTHER HYPERLIPIDEMIA 06/04/2016 LISSET GRANADOP Ot I10 ESSENTIAL (PRIMARY) HYPERTENSION 06/04/2016 LISSET GRANADO Ot I25.10 ATHSCL HEART DISEASE OF [place] CORONARY 06/04/2016 LISSET GRANADOP Ot I34.0 NONRHEUMATIC MITRAL (VALVE) INSUFFICIENC 06/04/2016 LISSET GRANADOP Ot I35.1 NONRHEUMATIC AORTIC (VALVE) INSUFFICIENC 06/04/2016 LISSET GRANADO PROJECT ADMINISTRATOR Ot I65.23 OCCLUSION AND STENOSIS OF BILATERAL COBB 06/07/2016 LISSET GRANADO PROJECT ADMINISTRATOR Ot E78.4 OTHER HYPERLIPIDEMIA 06/07/2016 LISSET GRANADO PROJECT ADMINISTRATOR Ot I10 ESSENTIAL (PRIMARY) HYPERTENSION 06/07/2016 LISSET GRANADO PROJECT ADMINISTRATOR Ot I25.10 ATHSCL HEART DISEASE OF [place] CORONARY 06/07/2016 LISSET GRANADO PROJECT ADMINISTRATOR Ot I34.0 NONRHEUMATIC MITRAL (VALVE) INSUFFICIENC 06/07/2016 LISSET GRANADO PROJECT ADMINISTRATOR Ot I35.1 NONRHEUMATIC AORTIC (VALVE) INSUFFICIENC 06/07/2016 LISSET GRANADO PROJECT ADMINISTRATOR Ot I65.23 OCCLUSION AND STENOSIS OF BILATERAL COBB 09/08/2016 Irasema Kirby W 401.0 MALIGNANT ESSENTIAL HYPERTENSION 09/08/2016 Roberth Kirbyya W 530.81 ESOPHAGEAL REFLUX 09/08/2016 Irasema Kirby A 786.5 CHEST PAIN 09/08/2016 Irasema Kirby W I10 ESSENTIAL (PRIMARY) HYPERTENSION 09/08/2016 Irasema Kirby W K21.9 GASTRO-ESOPHAGEAL REFLUX DISEASE WITHOUT ESOPHAGITIS 09/08/2016 Roberth Kirbyya A R07.89 OTHER CHEST PAIN 11/01/2016 RADHA LAU Ot 424.1 AORTIC VALVE DISORDER 11/01/2016 KAUSHIK SHEN MD Ot 211.1 BENIGN NEOPLASM STOMACH 11/01/2016 KAUSHIK SHEN MD Ot 530.11 REFLUX ESOPHAGITIS 11/01/2016 KAUSHIK SHEN MD Ot 535.50 UNSP GASTRITIS GASTRODUODENITIS W/O ME 11/01/2016 KAUSHIK SHEN MD Ot 553.3 DIAPHRAGMATIC HERNIA 11/01/2016 KAUSHIK SHEN MD Ot V72.84 EXAM PRE-OPERATIVE NOS 11/01/2016 SID IRVIN, JOSEPH Merchant Ot 724.5 BACKACHE NOS 11/01/2016 JOSEPH LAU MD Ot 787.02 NAUSEA ALONE 11/01/2016 JOESPH LAU MD Ot 789.00 ABDOMINAL PAIN, UNSPECIFIED SITE 11/01/2016 JOSEPH LAU MD Ot 496 CHR AIRWAY OBSTRUCT NEC 11/01/2016 JOSEPH LAU MD Ot 496 CHR AIRWAY OBSTRUCT NEC 11/01/2016 JOSEPH LAU MD Ot 786.50 CHEST PAIN NOS 11/01/2016 JOSEPH LAU MD Ot 796.4 ABN CLINICAL FINDING NEC 11/01/2016 WILLIS NAZARIO DO Ot 272.4 HYPERLIPIDEMIA NEC/NOS 11/01/2016 WILLIS NAZARIO DO Ot 401.9 HYPERTENSION NOS 11/01/2016 WILLIS NAZARIO DO Ot 414.00 CORON ATHEROSCLER NOS TYPE VESSEL, NATIV 11/01/2016 WILLIS NAZARIO DO Ot 496 CHR AIRWAY OBSTRUCT NEC 11/01/2016 Ot 605 REDUN PREPUCE PHIMOSIS 11/01/2016 Ot 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 11/01/2016 Ot V72.83 EXAM PRE- OPERATIVE NEC 11/01/2016 Ot V74.8 SCREEN- BACTERIAL DIS NEC 11/01/2016 ANDIE IRVIN, SAV Valencia Ot 185 MALIGN NEOPL PROSTATE 11/01/2016 GARY GIBBS APRN Ot 786.2 COUGH 11/01/2016 JOSE D IRVIN, DIPESH E Ot 185 11/01/2016 KAUSHIK SHEN MD Ot K76.0 FATTY (CHANGE OF) LIVER, NOT ELSEWHERE C 11/01/2016 KAUSHIK SHEN MD Ot R10.11 RIGHT UPPER QUADRANT PAIN 11/01/2016 KAUSHIK SHEN MD Ot K27.9 PEPTIC ULC, SITE UNSP, UNSP AC OR CHR 11/01/2016 KAUSHIK SHEN MD Ot Z01.818 ENCOUNTER FOR OTHER PREPROCEDURAL EXAMIN 11/01/2016 KAUSHIK SHEN MD Ot R10.11 RIGHT UPPER QUADRANT PAIN 11/01/2016 KAUSHIK SHEN MD Ot K82.8 OTHER SPECIFIED DISEASES OF GALLBLADDER 11/01/2016 KAUSHIK SHEN MD, Ot Z01.812 ENCOUNTER FOR PREPROCEDURAL LABORATORY E 11/01/2016 KAUSHIK SHEN MD Ot Z11.2 ENCOUNTER FOR SCREENING FOR OTHER BACTER 11/01/2016 LISSET GRANADO PROJECT ADMINISTRATOR Ot E78.4 OTHER HYPERLIPIDEMIA 11/01/2016 LISSET GRANADO PROJECT ADMINISTRATOR Ot I10 ESSENTIAL (PRIMARY) HYPERTENSION 11/01/2016 LISSET GRANADO PROJECT ADMINISTRATOR Ot I25.10 ATHSCL HEART DISEASE OF [place] CORONARY 11/01/2016 LISSET GRANADO PROJECT ADMINISTRATOR Ot I34.0 NONRHEUMATIC MITRAL (VALVE) INSUFFICIENC 11/01/2016 LISSET GRANADO PROJECT ADMINISTRATOR Ot I35.1 NONRHEUMATIC AORTIC (VALVE) INSUFFICIENC 11/01/2016 LISSET GRANADO PROJECT ADMINISTRATOR Ot I65.23 OCCLUSION AND STENOSIS OF BILATERAL COBB 11/01/2016 HERIBERTO SLOANE Cyndee Ot E11.9 TYPE 2 DIABETES MELLITUS WITHOUT COMPLIC 11/01/2016 HERIBERTO SLOANE K Ot E78.00 PURE HYPERCHOLESTEROLEMIA, UNSPECIFIED 11/01/2016 HERIBERTO SLOANE K Ot G89.29 OTHER CHRONIC PAIN 11/01/2016 HERIBERTO SLOANE K Ot I10 ESSENTIAL (PRIMARY) HYPERTENSION 11/01/2016 HERIBERTO ALIA BARONA Cyndee Ot J44.9 CHRONIC OBSTRUCTIVE PULMONARY DISEASE, U 11/01/2016 HERIBERTO DO SLOANE Cyndee Ot K21.9 GASTRO-ESOPHAGEAL REFLUX DISEASE WITHOUT 11/01/2016 HERIBERTO DO SLOANE Cyndee Ot M19.90 UNSPECIFIED OSTEOARTHRITIS, UNSPECIFIED 11/01/2016 HERIBERTO DO SLOANE Cyndee Ot M54.5 LOW BACK PAIN 11/01/2016 HERIBERTO SLOANE K Ot Z85.46 PERSONAL HISTORY OF MALIGNANT NEOPLASM O 11/01/2016 HERIBERTO SLOANE Cyndee Ot Z87.19 PERSONAL HISTORY OF OTHER DISEASES OF TH 11/01/2016 HERIBERTO SLOANE Cyndee Ot Z87.442 PERSONAL HISTORY OF URINARY CALCULI 11/01/2016 HERIBERTO BARON SLOANE Cyndee Ot Z87.891 PERSONAL HISTORY OF NICOTINE DEPENDENCE 11/01/2016 HERIBERTO BARON SLOANE Cyndee Ot 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 11/01/2016 HERIBERTO BARON SLOANE K Ot Z96.642 PRESENCE OF LEFT ARTIFICIAL HIP JOINT 11/08/2016 ALIA LOUIS DOA Cyndee Ot E11.9 TYPE 2 DIABETES MELLITUS WITHOUT COMPLIC 11/08/2016 HERIBERTO ALIAA K Ot E78.00 PURE HYPERCHOLESTEROLEMIA, UNSPECIFIED 11/08/2016 HERIBERTO SLOANE K Ot G89.29 OTHER CHRONIC PAIN 11/08/2016 HERIBERTO DO SLOANE K Ot I10 ESSENTIAL (PRIMARY) HYPERTENSION 11/08/2016 ALIA LOUIS DOA K Ot J44.9 CHRONIC OBSTRUCTIVE PULMONARY DISEASE, U 11/08/2016 SLOANE LOUIS DO Ot K21.9 GASTRO-ESOPHAGEAL REFLUX DISEASE WITHOUT 11/08/2016 SLOANE LOUIS DO Ot M19.90 UNSPECIFIED OSTEOARTHRITIS, UNSPECIFIED 11/08/2016 SLOANE LOUIS DO Ot M54.5 LOW BACK PAIN 11/08/2016 SLOANE LOUIS DO Ot Z85.46 PERSONAL HISTORY OF MALIGNANT NEOPLASM O 11/08/2016 SLOANE LOUIS DO Ot Z87.19 PERSONAL HISTORY OF OTHER DISEASES OF TH 11/08/2016 SLOANE LOUIS DO Ot Z87.442 PERSONAL HISTORY OF URINARY CALCULI 11/08/2016 SLOANE LOUIS DO Ot Z87.891 PERSONAL HISTORY OF NICOTINE DEPENDENCE 11/08/2016 HERIBERTO BARON SLOANE Cotter Ot 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 11/08/2016 HERIBERTO BARON SLOANE Cotter Ot Z96.642 PRESENCE OF LEFT ARTIFICIAL HIP JOINT 11/25/2016 Pipo Tripp A 300.01 PANIC DISORDER WITHOUT AGORAPHOBIA 11/25/2016 Pipo Tripp F41.0 PANIC DISORDER WITHOUT AGORAPHOBIA 12/04/2016 ELPIDIO BELLE Ot E11.9 TYPE 2 DIABETES MELLITUS WITHOUT COMPLIC 12/04/2016 ELPIDIO BELLE Ot E78.00 PURE HYPERCHOLESTEROLEMIA, UNSPECIFIED 12/04/2016 ELPIDIO BELLE Ot G89.29 OTHER CHRONIC PAIN 12/04/2016 ELPIDIO BELLE Ot I10 ESSENTIAL (PRIMARY) HYPERTENSION 12/04/2016 ELPIDIO BELLE Ot J44.9 CHRONIC OBSTRUCTIVE PULMONARY DISEASE, U 12/04/2016 ELPIDIO BELLE Ot K21.9 GASTRO-ESOPHAGEAL REFLUX DISEASE WITHOUT 12/04/2016 ELPIDIO BELLE Ot M10.9 GOUT, UNSPECIFIED 12/04/2016 ELPIDIO BELLE Ot M19.90 UNSPECIFIED OSTEOARTHRITIS, UNSPECIFIED 12/04/2016 ELPIDIO BELLE Ot M25.551 PAIN IN RIGHT HIP 12/04/2016 ELPIDIO BELLE Ot Z85.46 PERSONAL HISTORY OF MALIGNANT NEOPLASM O 12/04/2016 ELPIDIO BELLE Ot Z86.010 PERSONAL HISTORY OF COLONIC POLYPS 12/04/2016 ELPIDIO BELLE Ot Z87.442 PERSONAL HISTORY OF URINARY CALCULI 12/04/2016 ELPIDIO BELLE Ot Z87.891 PERSONAL HISTORY OF NICOTINE DEPENDENCE 12/04/2016 ELPIDIO BELLE Ot Z95.2 PRESENCE OF PROSTHETIC HEART VALVE 12/04/2016 ELPIDIO BELLE Ot 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 12/04/2016 ELPIDIO BELLE Ot Z96.652 PRESENCE OF LEFT ARTIFICIAL KNEE JOINT 12/07/2016 JOSE D IRVIN, DIPESH Wall Ot 185 12/07/2016 ELPIDIO BELLE Ot E11.9 TYPE 2 DIABETES MELLITUS WITHOUT COMPLIC 12/07/2016 ELPIDIO BELLE Ot E78.00 PURE HYPERCHOLESTEROLEMIA, UNSPECIFIED 12/07/2016 ELPIDIO BELLE Ot G89.29 OTHER CHRONIC PAIN 12/07/2016 ELPIDIO BELLE Ot I10 ESSENTIAL (PRIMARY) HYPERTENSION 12/07/2016 ELPIDIO BELLE Ot J44.9 CHRONIC OBSTRUCTIVE PULMONARY DISEASE, U 12/07/2016 ELPIDIO BELLE Ot M06.9 RHEUMATOID ARTHRITIS, UNSPECIFIED 12/07/2016 ELPIDIO BELLE Ot M25.551 PAIN IN RIGHT HIP 12/07/2016 ELPIDIO BELLE Ot M25.552 PAIN IN LEFT HIP 12/07/2016 ELPIDIO BELLE Ot M25.562 PAIN IN LEFT KNEE 12/07/2016 ELPIDIO BELLE Ot M47.9 SPONDYLOSIS, UNSPECIFIED 12/07/2016 ELPIDIO BELLE Ot S39.012A STRAIN OF MUSCLE, FASCIA AND TENDON OF L 12/07/2016 ELPIDIO BELLE Ot W10.2XXA FALL (ON)(FROM) INCLINE, INITIAL ENCOUNT 12/07/2016 ELPIDIO BELLE Ot Y92.[address] OF OCCURRENCE OF 12/07/2016 ELPIDIO BELLE Ot Z87.19 PERSONAL HISTORY OF OTHER DISEASES OF TH 12/07/2016 ELPIDIO BELLE Ot Z87.442 PERSONAL HISTORY OF URINARY CALCULI 12/07/2016 ELPIDIO BELLE Ot Z87.891 PERSONAL HISTORY OF NICOTINE DEPENDENCE 12/07/2016 ELPIDIO BELLE Ot 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( 12/07/2016 ELPIDIO BELLE Ot 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 12/07/2016 ELPIDIO BELLE Ot 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 12/11/2016 ELPIDIO BELLE Ot E11.9 TYPE 2 DIABETES MELLITUS WITHOUT COMPLIC 12/11/2016 ELPIDIO BELLE Ot E78.00 PURE HYPERCHOLESTEROLEMIA, UNSPECIFIED 12/11/2016 ELPIDIO BELLE Ot G89.29 OTHER CHRONIC PAIN 12/11/2016 ELPIDIO BELLE Ot I10 ESSENTIAL (PRIMARY) HYPERTENSION 12/11/2016 ELPIDIO BELLE Ot J44.9 CHRONIC OBSTRUCTIVE PULMONARY DISEASE, U 12/11/2016 ELPIDIO BELLE Ot M06.9 RHEUMATOID ARTHRITIS, UNSPECIFIED 12/11/2016 ELPIDIO BELLE Ot M25.551 PAIN IN RIGHT HIP 12/11/2016 ELPIDIO BELLE Ot M25.552 PAIN IN LEFT HIP 12/11/2016 ELPIDIO BELLE Ot M25.562 PAIN IN LEFT KNEE 12/11/2016 ELPIDIO BELLE Ot M47.9 SPONDYLOSIS, UNSPECIFIED 12/11/2016 ELPIDIO BELLE Ot S39.012A STRAIN OF MUSCLE, FASCIA AND TENDON OF L 12/11/2016 ELPIDIO BELLE Ot W10.2XXA FALL (ON)(FROM) INCLINE, INITIAL ENCOUNT 12/11/2016 ELPIDIO BELLE Ot Y92.[address] OF OCCURRENCE OF 12/11/2016 ELPIDIO BELLE Ot Z87.19 PERSONAL HISTORY OF OTHER DISEASES OF TH 12/11/2016 ELPIDIO BELLE Ot Z87.442 PERSONAL HISTORY OF URINARY CALCULI 12/11/2016 ELPIDIO BELLE Ot Z87.891 PERSONAL HISTORY OF NICOTINE DEPENDENCE 12/11/2016 ELPIDIO BELLE Ot 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( 12/11/2016 ELPIDIO BELLE Ot 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 12/11/2016 ELPIDIO BELLE Ot 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 12/13/2016 ELPIDIO BELLE Ot E11.9 TYPE 2 DIABETES MELLITUS WITHOUT COMPLIC 12/13/2016 ELPIDIO BELLE Ot E78.00 PURE HYPERCHOLESTEROLEMIA, UNSPECIFIED 12/13/2016 ELPIDIO BELLE Ot G89.29 OTHER CHRONIC PAIN 12/13/2016 ELPIDIO BELLE Ot I10 ESSENTIAL (PRIMARY) HYPERTENSION 12/13/2016 ELPIDIO BELLE Ot J44.9 CHRONIC OBSTRUCTIVE PULMONARY DISEASE, U 12/13/2016 ELPIDIO BELLE Ot M06.9 RHEUMATOID ARTHRITIS, UNSPECIFIED 12/13/2016 ELPIDIO BELLE Ot M25.551 PAIN IN RIGHT HIP 12/13/2016 ELPIDIO BELLE Ot M25.552 PAIN IN LEFT HIP 12/13/2016 ELPIDIO BELLE Ot M25.562 PAIN IN LEFT KNEE 12/13/2016 ELPIDIO BELLE Ot M47.9 SPONDYLOSIS, UNSPECIFIED 12/13/2016 ELPIDIO BELLE Ot S39.012A STRAIN OF MUSCLE, FASCIA AND TENDON OF L 12/13/2016 ELPIDIO BELLE Ot W10.2XXA FALL (ON)(FROM) INCLINE, INITIAL ENCOUNT 12/13/2016 ELPIDIO BELLE Ot Y92.[address] OF OCCURRENCE OF 12/13/2016 ELPIDIO BELLE Ot Z87.19 PERSONAL HISTORY OF OTHER DISEASES OF TH 12/13/2016 ELPIDIO BELLE Ot Z87.442 PERSONAL HISTORY OF URINARY CALCULI 12/13/2016 ELPIDIO BELLE Ot Z87.891 PERSONAL HISTORY OF NICOTINE DEPENDENCE 12/13/2016 ELPIDIO BELLE Ot 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( 12/13/2016 ELPIDIO BELLE Ot 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 12/13/2016 ELPIDIO BELLE Ot 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 01/22/2017 Pipo Tripp 276.51 DEHYDRATION 01/22/2017 Pipo Tripp 338.18 OTHER ACUTE POSTOPERATIVE PAIN 01/22/2017 Pipo Tripp 564.00 CONSTIPATION, UNSPECIFIED 01/22/2017 Pipo Tripp A 693.0 01/22/2017 Pipo Tripp 719.45 PAIN IN JOINT INVOLVING PELVIC REGION AND THIGH 01/22/2017 Pipo Tripp 995.29 01/22/2017 Pipo Tripp E86.0 DEHYDRATION 01/22/2017 Pipo Tripp G89.18 OTHER ACUTE POSTPROCEDURAL PAIN 01/22/2017 Pipo Tripp K59.00 CONSTIPATION, UNSPECIFIED 01/22/2017 Pipo Tripp L27.0 GEN SKIN ERUPTION DUE TO DRUGS AND MEDS TAKEN INTERNALLY 01/22/2017 Pipo Tripp M25.551 PAIN IN RIGHT HIP 01/22/2017 Pipo Tripp T45.515A ADVERSE EFFECT OF ANTICOAGULANTS, INITIAL ENCOUNTER 03/07/2017 A 338.18 OTHER ACUTE POSTOPERATIVE PAIN 03/07/2017 W 719.45 PAIN IN JOINT INVOLVING PELVIC REGION AND THIGH 03/07/2017 A G89.18 OTHER ACUTE POSTPROCEDURAL PAIN 03/07/2017 W M25.551 PAIN IN RIGHT HIP 09/24/2017 SHEA PAULSON DO, Ot M25.512 PAIN IN LEFT SHOULDER 09/30/2017 SHEA PAULSON DO, Ot M25.512 PAIN IN LEFT SHOULDER Procedures There is no data. Results Test Result Range Complete blood count (CBC) with automated white blood cell (WBC) differential - 11/08/15 14:39 Blood leukocytes automated count (number/volume) 7.7 10*3/uL 4.3-11.0 Blood erythrocytes automated count (number/volume) 4.91 10*6/uL 4.35-5.85 Venous blood hemoglobin measurement (mass/volume) 14.7 g/dL 13.3-17.7 Blood hematocrit (volume fraction) 42 % 40-54 Automated erythrocyte mean corpuscular volume 86 [foz_us] 80-99 Automated erythrocyte mean corpuscular hemoglobin (mass per erythrocyte) 30 pg 25-34 Automated erythrocyte mean corpuscular hemoglobin concentration measurement ( mass/volume) 35 g/dL 32-36 Automated erythrocyte distribution width ratio 12.7 % 10.0-14.5 Automated blood platelet count (count/volume) 272 10*3/uL 130-400 Automated blood platelet mean volume measurement 9.8 [foz_us] 7.4-10.4 Automated blood neutrophils/100 leukocytes 62 % 42-75 Automated blood lymphocytes/100 leukocytes 25 % 12-44 Blood monocytes/100 leukocytes 11 % 0-12 Automated blood eosinophils/100 leukocytes 1 % 0-10 Automated blood basophils/100 leukocytes 1 % 0-10 Blood neutrophils automated count (number/volume) 4.8 10*3 1.8-7.8 Blood lymphocytes automated count (number/volume) 2.0 10*3 1.0-4.0 Blood monocytes automated count (number/volume) 0.8 10*3 0.0-1.0 Automated eosinophil count 0.1 10*3/uL 0.0-0.3 Automated blood basophil count (count/volume) 0.1 10*3/uL 0.0-0.1 PT panel in platelet poor plasma by coagulation assay - 11/08/15 14:39 Prothrombin time (PT) in platelet poor plasma by coagulation assay 12.7 s 12.2-14.7 INR in platelet poor plasma or blood by coagulation assay 1.0 0.8-1.4 Activated partial thromboplastin time (aPTT) in platelet poor plasma bycoagulation assay - 11/08/15 14:39 Activated partial thromboplastin time (aPTT) in platelet poor plasma bycoagulation assay 27 s 24-35 Comprehensive metabolic panel - 11/08/15 14:39 Serum or plasma sodium measurement (moles/volume) 136 mmol/L 135-145 Serum or plasma potassium measurement (moles/volume) 4.1 mmol/L 3.6-5.0 Serum or plasma chloride measurement (moles/volume) 104 mmol/L 98-107 Carbon dioxide 23 mmol/L 21-32 Serum or plasma anion gap determination (moles/volume) 9 mmol/L 5-14 Serum or plasma urea nitrogen measurement (mass/volume) 14 mg/dL 7-18 Serum or plasma creatinine measurement (mass/volume) 1.08 mg/dL 0.60-1.30 Serum or plasma urea nitrogen/creatinine mass ratio 13 NRG Serum or plasma creatinine measurement with calculation of estimated glomerular filtration rate > NRG Serum or plasma glucose measurement (mass/volume) 96 mg/dL 70-105 Serum or plasma calcium measurement (mass/volume) 9.7 mg/dL 8.5-10.1 Serum or plasma total bilirubin measurement (mass/volume) 0.6 mg/dL 0.1-1.0 Serum or plasma alkaline phosphatase measurement (enzymatic activity/volume) 51 U/L 40-136 Serum or plasma aspartate aminotransferase measurement (enzymatic activity/ volume) 34 U/L 5-34 Serum or plasma alanine aminotransferase measurement (enzymatic activity/volume ) 36 U/L 0-55 Serum or plasma protein measurement (mass/volume) 6.7 g/dL 6.4-8.2 Serum or plasma albumin measurement (mass/volume) 4.3 g/dL 3.2-4.5 Magnesium - 11/08/15 14:39 Magnesium 1.8 mg/dL 1.8-2.4 Serum or plasma C reactive protein measurement (mass/volume) - 11/08/15 14:39 Serum or plasma C reactive protein measurement (mass/volume) 0.39 mg /dL 0.00-0.50 Serum or plasma thyrotropin measurement by detection limit <=0.05 miu/l (units/ volume) - 11/08/15 14:39 Serum or plasma thyrotropin measurement by detection limit <=0.05 miu/l (units/ volume) 0.90 u[iU]/mL 0.35-4.94 Serum or plasma troponin i.cardiac measurement (mass/volume) - 11/08/15 14:39 Serum or plasma troponin i.cardiac measurement (mass/volume) < ng/ mL <0.30 Myoglobin, serum - 11/08/15 14:39 Myoglobin, serum 77.0 ng/mL 10.0-92.0 Sed Rate - 03/27/16 16:10 Sed Rate 13 mm/hr 0-9 Comprehensive Metabolic Panel - 03/27/16 16:10 Albumin 4.5 g/dL 3.6-5.1 ALP 46 U/L 35-130 ALT 22 U/L 6-45 Anion Gap 16 6-14 AST 32 U/L 2-40 BUN 25 mg/dL 5-25 Calcium 9.7 mg/dL 8.3-10.4 Chloride 96 mmol/L 95-114 CO2 22 mEq/L 22-33 Creat 1.57 mg/dL 0.50-1.50 eGFR 44 mL/min/1.73m2 >59 Globulin 2.5 g/dL 2.3-3.5 Glucose 106 mg/dL 70-110 Osmo 274 280-295 Potassium 4.4 mmol/L 3.5-5.3 Sodium 130 mmol/L 134-148 TBil 0.7 mg/dL 0.2-1.2 TP 7.0 g/dL 6.0-8.3 BNP - 09/08/16 15:20 BNP 30.30 pg/ml 0.00-100.00 Cardiac Panel - 09/08/16 15:21 CK 139 U/L 26-174 CK-MB 3.3 ng/ml 0.0-9.2 Myoglobin 143.6 ng/ml 1.6-154.9 Troponin <0.020 ng/mL 0.0-0.4 Cardiac Panel - 09/08/16 18:20 CK 109 U/L 26-174 CK-MB 2.6 ng/ml 0.0-9.2 Myoglobin 99.4 ng/ml 1.6-154.9 Troponin <0.020 ng/mL 0.0-0.4 EKG - 09/08/16 18:20 EKG Complete Urinalysis - 11/01/16 18:30 Icotest Positive Negative Urine Volume Urine Volume Sufficient (10mL) Urine-Appearance Clear Clear Urine-Bilirubin 3+ Negative Urine-Blood Negative Negative Urine-Color Yellow Colorless-Lt. Yellow Urine-Epithelial Cells 0-5/HPF Urine-Glucose Negative Negative Urine-Ketones Negative Negative Urine-Leukocytes Negative Negative Urine-Nitrite Negative Negative Urine-pH 5.5 5-8.5 Urine-Protein Negative Negative Urine-RBC 0-2/HPF Urine-Specific W[place]ers 1.010 1.000-1.030 Urine-WBC 0-2/HPF Urobilinogen 0.2 0.2-1.0 Comprehensive Metabolic Panel - 11/08/16 16:00 Albumin 3.6 g/dL 3.6-5.1 ALP 45 U/L 35-130 ALT 17 U/L 6-45 Anion Gap 14 6-14 AST 28 U/L 2-40 BUN 15 mg/dL 5-25 Calcium 9.0 mg/dL 8.3-10.4 Chloride 105 mmol/L 95-114 CO2 24 mEq/L 22-33 Creat 1.52 mg/dL 0.50-1.50 eGFR 45 mL/min/1.73m2 >59 Globulin 2.0 g/dL 2.3-3.5 Glucose 93 mg/dL 70-110 Osmo 286 280-295 Potassium 4.8 mmol/L 3.5-5.3 Sodium 138 mmol/L 134-148 TBil 0.6 mg/dL 0.2-1.2 TP 5.6 g/dL 6.0-8.3 Holter Monitor 48 hour - 11/23/16 16:14 Holter Monitor 48 Hour Complete Urinalysis - 11/25/16 14:23 Icotest N/A Negative Urine Casts Hyaline-Occassional Urine Crystals Amorphous-2+ Urine Volume Urine Volume Sufficient (10mL) Urine-Appearance Clear Clear Urine-Bacteria Trace Urine-Bilirubin 3+ Negative Urine-Blood Negative Negative Urine-Color Yellow Colorless-Lt. Yellow Urine-Epithelial Cells 0-5/HPF Urine-Glucose Negative Negative Urine-Ketones 1+ Negative Urine-Leukocytes Negative Negative Urine-Mucus Occasional Urine-Nitrite Negative Negative Urine-Other Urine Saved if Culture Needed (48hrs from time of collection) Urine-pH 5.5 5-8.5 Urine-Protein 1+ Negative Urine-RBC 0-2/HPF Urine-Specific [place] >=1.030 1.000-1.030 Urine-WBC 0-2/HPF Urobilinogen 1.0 E.U./dL 0.2-1.0 Cardiac Panel - 01/22/17 12:39 CK 137 U/L 26-174 CK-MB 2.9 ng/ml 0.0-9.2 Myoglobin 235.1 ng/ml 1.6-154.9 Troponin <0.020 ng/mL 0.0-0.4 Complete blood count (CBC) with automated white blood cell (WBC) differential - 10/20/17 21:05 Blood leukocytes automated count (number/volume) 7.9 10*3/uL 4.3-11.0 Blood erythrocytes automated count (number/volume) 4.39 10*6/uL 4.35-5.85 Venous blood hemoglobin measurement (mass/volume) 13.3 g/dL 13.3-17.7 Blood hematocrit (volume fraction) 37 % 40-54 Automated erythrocyte mean corpuscular volume 85 [foz_us] 80-99 Automated erythrocyte mean corpuscular hemoglobin (mass per erythrocyte) 30 pg 25-34 Automated erythrocyte mean corpuscular hemoglobin concentration measurement ( mass/volume) 36 g/dL 32-36 Automated erythrocyte distribution width ratio 12.9 % 10.0-14.5 Automated blood platelet count (count/volume) 285 10*3/uL 130-400 Automated blood platelet mean volume measurement 9.5 [foz_us] 7.4-10.4 Automated blood neutrophils/100 leukocytes 67 % 42-75 Automated blood lymphocytes/100 leukocytes 20 % 12-44 Blood monocytes/100 leukocytes 11 % 0-12 Automated blood eosinophils/100 leukocytes 2 % 0-10 Automated blood basophils/100 leukocytes 0 % 0-10 Blood neutrophils automated count (number/volume) 5.3 10*3 1.8-7.8 Blood lymphocytes automated count (number/volume) 1.6 10*3 1.0-4.0 Blood monocytes automated count (number/volume) 0.8 10*3 0.0-1.0 Automated eosinophil count 0.1 10*3/uL 0.0-0.3 Automated blood basophil count (count/volume) 0.0 10*3/uL 0.0-0.1 Comprehensive metabolic panel - 10/20/17 21:05 Serum or plasma sodium measurement (moles/volume) 125 mmol/L 135-145 Serum or plasma potassium measurement (moles/volume) 4.1 mmol/L 3.6-5.0 Serum or plasma chloride measurement (moles/volume) 92 mmol/L 98-107 Carbon dioxide 19 mmol/L 21-32 Serum or plasma anion gap determination (moles/volume) 14 mmol/L 5-14 Serum or plasma urea nitrogen measurement (mass/volume) 16 mg/dL 7-18 Serum or plasma creatinine measurement (mass/volume) 1.18 mg/dL 0.60-1.30 Serum or plasma urea nitrogen/creatinine mass ratio 14 NRG Serum or plasma creatinine measurement with calculation of estimated glomerular filtration rate > NRG Serum or plasma glucose measurement (mass/volume) 93 mg/dL 70-105 Serum or plasma calcium measurement (mass/volume) 10.2 mg/dL 8.5-10.1 Serum or plasma total bilirubin measurement (mass/volume) 0.9 mg/dL 0.1-1.0 Serum or plasma alkaline phosphatase measurement (enzymatic activity/volume) 50 U/L 40-136 Serum or plasma aspartate aminotransferase measurement (enzymatic activity/ volume) 30 U/L 5-34 Serum or plasma alanine aminotransferase measurement (enzymatic activity/volume ) 15 U/L 0-55 Serum or plasma protein measurement (mass/volume) 7.0 g/dL 6.4-8.2 Serum or plasma albumin measurement (mass/volume) 4.4 g/dL 3.2-4.5 Serum or plasma amylase measurement (enzymatic activity/volume) - 10/20/17 21: 05 Serum or plasma amylase measurement (enzymatic activity/volume) 62 U /L 25-125 Lipase - 10/20/17 21:05 Lipase 17 U/L 8-78 Encounters ACCT No. Visit Date/Time Discharge Status Pt. Type Provider Facility Loc./Unit Complaint [id number] 10/04/2017 15:25:00 10/04/2017 23:59:59 CLS Outpatient SHEA PAULSON DO [facility] REHAB L ROTATOR CUFF REPAIR [id number] 12/07/2016 21:22:00 12/07/2016 23:53:00 DIS Emergency ELPIDIO BELLE [facility] ER FALL/KNEE AND HIP PAIN /R SHOULDER PAIN [id number] 12/04/2016 21:13:00 12/04/2016 22:33:00 DIS Emergency ELPIDIO BELLE [facility] ER RT HIP AND KNEE PAIN [id number] 11/01/2016 21:56:00 11/01/2016 22:50:00 DIS Emergency SLOANE LOUIS DO [facility] ER LOWER BACK/LT HIP PAIN [id number] 05/10/2016 10:14:00 05/10/2016 23:59:59 CLS Outpatient LISSET GRANADO [facility] CARD CAD,CAROTIUD ARTERIAL DISEASE [id number] 02/22/2016 20:10:00 02/22/2016 23:05:00 DIS Emergency ELPIDIO BELLE [facility] ER FALL [id number] 11/08/2015 14:22:00 11/08/2015 16:53:00 DIS Emergency THOMAS QUIROZ MD [facility] ER CHEST PAIN [id number] 10/09/2015 23:29:00 10/10/2015 00:52:00 DIS Emergency RICHIE IRVIN, THOMAS Fairchild [facility] ER RT HIP PAIN [id number] 08/22/2015 00:52:00 08/22/2015 01:36:00 DIS Emergency NEVIN IRVIN, MALOU Merchant [facility] ER BACK PAIN [id number] 06/11/2015 00:02:00 06/11/2015 00:50:00 DIS Emergency SID IRVIN, ALEX Valencia [facility] ER L PINKY PAIN [id number] 05/01/2015 20:27:00 05/01/2015 21:39:00 DIS Emergency BROOKS DIA APRN [facility] ER VOMITING BLOOD POST GALL BLADDER REMOVAL [id number] 04/28/2015 06:00:00 04/28/2015 23:59:59 CLS Outpatient KAUSHIK SHEN MD [facility] BILARY DYSKINESIA [id number] 04/25/2015 07:50:00 04/25/2015 23:59:59 CLS Outpatient KAUSHIK SHEN MD [facility] PREOP BILIARY DYSKINESIA [id number] 03/28/2015 09:39:00 03/28/2015 23:59:59 CLS Outpatient KAUSHIK SHEN MD [facility] CARD RUQ PAIN [id number] 03/17/2015 06:36:00 03/17/2015 23:59:59 CLS Outpatient KAUSHIK SHEN MD [facility] RAD RIGHT UPPER QUADRANT PAIN [id number] 03/16/2015 09:39:00 03/16/2015 12:10:00 DIS Outpatient KAUSHIK SHEN MD [facility] SDC PUD [id number] 03/14/2015 05:48:00 03/14/2015 23:59:59 CLS Outpatient KAUSHIK SHEN MD [facility] PREOP EGD [id number] 01/06/2015 01:36:00 01/06/2015 23:59:59 CLS Preadmit JOSE D IRVIN, DIPESH Wall [facility] ONC [id number] 01/05/2015 09:41:00 01/05/2015 00:01:00 DIS Outpatient DIPESH JEFFERY MD [facility] ONC [id number] 11/16/2014 07:05:00 11/16/2014 14:40:00 DIS Outpatient ANROLD IRVIN FACC, ANDERSON FALCON CCDS [facility] CATH ANGINA CAD FATIGUE [id number] 11/02/2014 14:18:00 11/02/2014 00:01:00 DIS Outpatient DIPESH JEFFERY MD [facility] ONC [id number] 07/29/2014 12:26:00 07/29/2014 23:59:59 CLS Outpatient GARY GIBBS APRN [facility] RAD COUGH,INHALANTS OF TOXIN [id number] 07/12/2014 12:03:00 07/12/2014 23:59:59 CLS Outpatient SAV CHAVES MD [facility] CARD PROSTATE CA [id number] 06/30/2014 14:12:00 06/30/2014 23:59:59 CLS Outpatient WILLIS NAZARIO DO [facility] RAD COPD,CAD,HYPERTENSION, HYPERLIPIDEMIA [id number] 03/15/2014 14:15:00 03/15/2014 23:59:59 CLS Outpatient JOSEPH LAU MD [facility] RT COPD [id number] 03/12/2014 13:58:00 03/12/2014 23:59:59 CLS Outpatient JOSEPH LAU MD [facility] CARD POSITIVE D-DIMER [id number] 03/11/2014 19:56:00 03/11/2014 22:29:00 DIS Emergency TITO COLE DO [facility] ER CHEST PAIN [id number] 03/10/2014 15:27:00 03/10/2014 23:59:59 CLS Outpatient JOSEPH LAU MD [facility] RAD COLD [id number] 12/30/2013 15:02:00 12/30/2013 23:59:59 CLS Outpatient JOSEPH LAU MD [facility] RAD NAUSEA,ABD BACK PAIN [id number] 12/20/2013 05:40:00 12/20/2013 06:44:00 DIS Emergency DOUGLAS TITO [facility] ER WOUND CHECK [id number] 12/19/2013 13:41:00 12/19/2013 14:56:00 DIS Emergency ELPIDIO BELLE [facility] ER R HAND SWELLING [id number] 08/19/2013 07:56:00 08/19/2013 23:59:59 CLS Outpatient KAUSHIK SHEN MD [facility] SDC VOMITING;WEIGHT LOSS [id number] 08/13/2013 10:18:00 08/13/2013 23:59:59 CLS Outpatient KAUSHIK SHEN MD [facility] PREOP VOMITING;WEIGHT LOSS [id number] 12/26/2012 19:22:00 12/26/2012 21:32:00 DIS Emergency SLOANE LOUIS DO [facility] ER FALL [id number] 12/18/2012 09:20:00 12/18/2012 23:59:59 CLS Outpatient RADHA LAU [facility] CARD AORTIC REGURGITATION [id number] 10/23/2012 11:24:00 10/23/2012 14:05:00 DIS Emergency THOMAS QUIROZ MD [facility] ER N/V [id number] 10/01/2012 13:35:00 10/01/2012 15:47:00 DIS Emergency ISATU MCDONALD DO [facility] ER FALL/LEFT HIP PAIN [id number] 10/20/2017 21:20:00 Document Registration [id number] 06/15/2014 07:00:00 Document Registration [id number] 06/11/2014 09:42:00 Document Registration [id number] 07/19/2012 18:45:00 Document Registration [id number] 04/16/2017 12:54:00 04/16/2017 23:59:00 DIS Outpatient James Contreras [id number] 01/22/2017 12:30:00 01/22/2017 16:05:[address] [facility] ER [id number] 11/25/2016 13:24:00 11/25/2016 16:59:00 [id number]/23/2016 15:49:00 11/23/2016 23:59:00 DIS Outpatient Sascha Contrerasu [id number] 11/08/2016 15:52:00 11/08/2016 23:59:00 DIS Outpatient Steven ContrerasJose De Jesus [id number] 11/01/2016 19:06:00 11/01/2016 23:59:00 DIS Outpatient Steven ContrerasJose De Jesus [id number] 09/08/2016 15:18:00 09/08/2016 20:00:00 DIS Outpatient [facility] ER [id number] 03/27/2016 17:45:00 03/27/2016 23:59:00 DIS Outpatient Sascha Contrerasu [id number] 04/11/2017 15:58:21 Document Registration [id number] 02/20/2017 08:19:10 Document Registration [id number] 09/08/2016 17:05:49 Document Registration [id number] 03/27/2016 17:45:00 Document Registration [id number] 01/05/2015 09:41:27 ACT Document Registration
== END 2017-10-20 23:52 | disposition home or self-care (01) ==
LOC: EDUNIT# 20:35 → ER 20:37
DX: R11.2 Nausea with vomiting, unspecified (principal); R10.32 Left lower quadrant pain; J44.9 Chronic obstructive pulmonary disease, unspecified; E78.00 Pure hypercholesterolemia, unspecified; I10 Essential (primary) hypertension; K21.0 Gastro-esophageal reflux disease with esophagitis; E11.9 Type 2 diabetes mellitus without complications; Z87.442 Personal history of urinary calculi; Z88.5 Allergy status to narcotic agent; Z87.891 Personal history of nicotine dependence; Z96.611 Presence of right artificial shoulder joint; Z96.642 Presence of left artificial hip joint; Z96.652 Presence of left artificial knee joint; Z87.19 Personal history of other diseases of the digestive system
CPT/HCPCS: 36415; 71046; 74177; 80053; 82150; 83690; 85025; 96361; 96374; 96376

== ENCOUNTER → 2017-10-23 | Outpatient (CLI) | payer MEDICARE, MEDICAID ==
[~2017-10-23] MED LIST changes: +AMOX-358 PO; +CEPH-507 PO; +IOHEXOL 350 MG/ML 150 ML (OMNIPAQUE 350) VIAL IV ONE; +NS 250 ML (IVPB) BAG IV ONE; +ONDA4TAB11 PO
[2017-10-23 11:56] LABS: BASOPHILS % (AUTO) 1 % (0-10); EOSINOPHILS # (AUTO) 0.2 10^3/uL (0.0-0.3); EOSINOPHILS % (AUTO) 3 % (0-10); HEMATOCRIT 37 % (40-54); LYMPHOCYTES # (AUTO) 1.6 X 10^3 (1.0-4.0); LYMPHOCYTES % (AUTO) 21 % (12-44); MEAN CORPUSCULAR HEMOGLOBIN 31 PG (25-34); MEAN CORPUSCULAR HGB CONC 35 G/DL (32-36); MEAN CORPUSCULAR VOLUME 88 FL (80-99); MEAN PLATELET VOLUME 9.7 FL (7.4-10.4); MONOCYTES # (AUTO) 0.7 X 10^3 (0.0-1.0); MONOCYTES % (AUTO) 9 % (0-12); NEUTROPHILS % (AUTO) 67 % (42-75); PLATELET COUNT 318 10^3/uL (130-400); RED CELL DISTRIBUTION WIDTH 13.3 % (10.0-14.5); WHITE BLOOD COUNT 7.5 10^3/uL (4.3-11.0)
[2017-10-23 12:15] LABS: ALBUMIN 4.2 GM/DL (3.2-4.5); BILIRUBIN,TOTAL 0.8 MG/DL (0.1-1.0); CALCIUM 9.9 MG/DL (8.5-10.1); CREATININE SERUM 1.22 MG/DL (0.60-1.30); MAGNESIUM 1.7 MG/DL (1.8-2.4); PHOSPHORUS 2.8 MG/DL (2.3-4.7); POTASSIUM 4.4 MMOL/L (3.6-5.0); TOTAL PROTEIN 6.8 GM/DL (6.4-8.2)
--- NOTE | 2017-10-23 13:21 | Diagnostic Imaging Report ---
PROCEDURE: CT angiography of the chest with contrast. TECHNIQUE: Multiple contiguous axial images were obtained through the chest after uneventful bolus administration of intravenous contrast. Reconstructed CTA MIP acquisitions were also performed. INDICATION: Shortness of breath and cough. FINDINGS: Evaluation of the pulmonary arterial system is without evidence of thromboembolism. No filling defects are seen within central, lobar or segmental branches. The thoracic aorta is normal caliber. No dissection is seen. No pericardial or pleural fluid is identified. No definite axillary, hilar or mediastinal lymphadenopathy is identified. Central airways are patent. The lungs appear to be clear. No infiltrate, nodule or mass is detected. The upper abdomen is unremarkable. IMPRESSION: No evidence of pulmonary embolism or thoracic aortic dissection. No acute feature is detected. Dictated by: Dictated on workstation # [id number]
== END ==
LOC: RAD 11:33
PROVIDERS: ATTEND Nurse Practitioner Family
DX: J43.9 Emphysema, unspecified (principal); E87.1 Hypo-osmolality and hyponatremia; R63.4 Abnormal weight loss
CPT/HCPCS: 36415; 71275; 80053; 83735; 84100; 85025

== ENCOUNTER 2017-10-25 12:42 | Emergency (ER) | payer MEDICARE, MEDICAID ==
[~2017-10-25] VITALS: Ht 175.3 cm; Wt 83.0 kg
[~2017-10-25 12:42] MED LIST changes: -AMOX-358 PO; -CEPH-507 PO; -IOHEXOL 350 MG/ML 150 ML (OMNIPAQUE 350) VIAL IV ONE; -NS 250 ML (IVPB) BAG IV ONE
--- OUTSIDE RECORDS SUMMARY | 2017-10-25 12:57 | XMS REPORT | Continuity of Care Document ---
Author Author [facility] Organization [facility] Address Unknown Phone Unavailable Allergies Active Description Code Type Severity Reaction Onset Reported/Identified Relationship to Patient Clinical Status Yes FENTANYL FENTANYL MODERATE Yes MORPHINE MORPHINE MODERATE Yes FENTANYL MODERATE DERMATOLOGICAL - TANESHA Yes MORPHINE MODERATE DERMATOLOGICAL - TANESHA Yes morphine [id number] Drug Allergy Severe N/A 07/19/2012 Yes fentanyl [id number] Drug Allergy Unknown N/A 08/19/2013 Yes morphine [id number] Drug Allergy Severe HIVES, N/V 12/07/2016 Yes fentanyl [id number] Drug Allergy Mild RESTLESS 12/07/2016 Medications Medication [...] NOS 07/21/2012 Ot 414.01 CORONARY ATHEROSCLEROSIS OF [place] CORON 07/21/2012 Ot 424.1 AORTIC VALVE DISORDER [...] QUIROZ MD Ot 414.01 CORONARY ATHEROSCLEROSIS OF [place] CORON 10/23/2012 THOMAS QUIROZ MD Ot 493.20 [...] 03/10/2014 KAUSHIK SHEN MD Ot V72.84 03/10/2014 JOSEHP LAU MD Ot 724.5 03/10/2014 JOSEPH ALU MD Ot 787.02 03/10/2014 JOSEPH LAU MD [...] DIPESH Wall Ot 185 11/16/2014 RADHA LAU LABORER MARINE TERMINAL Ot 424.1 11/16/2014 HERMELINDA IRVIN, KAUSHIK Ot [...] IRVIN, KAUSHIK Ot R10.11 04/22/2015 HERMELINDA IRVIN, KAUSIHK Ot R10.11 04/25/2015 DIPESH JEFFERY MD E Ot 185 04/25/2015 JOSE D IRVIN, DIPESH E Ot 185 04/28/2015 HERMELINDA IRVIN, KAUSHIK Ot K81.1 CHRONIC CHOLECYSTITIS 05/01/2015 BROOKS DIA SALES ACTIVITY MANAGER Ot G89.18 OTHER ACUTE POSTPROCEDURAL PAIN 05/01/2015 BROOKS DIA SALES ACTIVITY MANAGER Ot R11.2 NAUSEA WITH VOMITING, UNSPECIFIED 05/01/2015 BROOKS DIA SALES ACTIVITY MANAGER Ot Z90.49 ACQUIRED ABSENCE OF OTHER SPECIFIED PART 05/24/2015 HERMELINDA IRVIN, KAUSHIK Ot K82.8 05/24/2015 HERMELINDA IRVIN, KAUSHIK Ot Z01.812 05/24/2015 HERMELINDA IRVIN, MILADISKI Ot Z11.2 06/01/2015 HERMELINDA IRVIN, KAUSHIK Ot [...] Y99.8 OTHER EXTERNAL CAUSE STATUS 02/22/2016 ELPIDIO BELLE Ot Z23 ENCOUNTER FOR IMMUNIZATION 02/22/2016 ELPIDIO BELLE Ot Z79.899 OTHER USP (CURRENT) DRUG THERAPY 02/22/2016 ELPIDIO BELLE Ot [...] IMMUNIZATION 03/07/2016 ELPIDIO BELLE Ot Z79.899 OTHER USP (CURRENT) DRUG THERAPY 03/07/2016 ELPIDIO BELLE Ot Z87.891 PERSONAL HISTORY OF NICOTINE DEPENDENCE 03/07/2016 ELPIDIO BELLE Ot Z96.642 PRESENCE OF LEFT ARTIFICIAL HIP JOINT 06/04/2016 LISSET GRANADO Ot E78.4 OTHER HYPERLIPIDEMIA 06/04/2016 LISSET GRANADOP Ot I10 ESSENTIAL (PRIMARY) HYPERTENSION 06/04/2016 LISSET GRANADO Ot I25.10 ATHSCL HEART DISEASE OF [place] CORONARY 06/04/2016 LISSET GRANADOP Ot I34.0 NONRHEUMATIC MITRAL (VALVE) INSUFFICIENC 06/04/2016 LISSET GRANADOP Ot I35.1 NONRHEUMATIC AORTIC (VALVE) INSUFFICIENC 06/04/2016 LISSET GRANADO LABORER [employer] Ot I65.23 OCCLUSION AND STENOSIS OF BILATERAL COBB 06/07/2016 LISSET GRANADO LABORER [employer]INE [employer]MINAL Ot E78.4 OTHER HYPERLIPIDEMIA 06/07/2016 LISSET GRANADO LABORER [employer]INE TERMINAL Ot I10 ESSENTIAL (PRIMARY) HYPERTENSION 06/07/2016 LISSET GRANADO LABORER MARINE TERMINAL Ot I25.10 ATHSCL HEART DISEASE OF [place] CORONARY 06/07/2016 LISSET GRANADO LABORER [employer]INE [employer]MINAL Ot I34.0 NONRHEUMATIC MITRAL (VALVE) INSUFFICIENC 06/07/2016 LISSET GRANADO LABORER [employer]INE TERMINAL Ot I35.1 NONRHEUMATIC AORTIC (VALVE) INSUFFICIENC 06/07/2016 LISSET GRANADO LABORER [employer]INE TERMINAL Ot I65.23 OCCLUSION AND STENOSIS OF BILATERAL [...] LAU MD Ot 787.02 NAUSEA ALONE 11/01/2016 JOSEPH LAU MD Ot 789.00 ABDOMINAL PAIN, UNSPECIFIED [...] SCREENING FOR OTHER BACTER 11/01/2016 LISSET GRANADO LABORER [employer]AL Ot E78.4 OTHER HYPERLIPIDEMIA 11/01/2016 LISSET GRANADO LABORER MARINE TERMINAL Ot I10 ESSENTIAL (PRIMARY) HYPERTENSION 11/01/2016 LISSET GRANADO LABORER MARINE TERMINAL Ot I25.10 ATHSCL HEART DISEASE OF [place] CORONARY 11/01/2016 LISSET GRANADO LABORER MARINE TERMINAL Ot I34.0 NONRHEUMATIC MITRAL (VALVE) INSUFFICIENC 11/01/2016 LISSET GRANADO LABORER MARINE TERMINAL Ot I35.1 NONRHEUMATIC AORTIC (VALVE) INSUFFICIENC 11/01/2016 LISSET GRANADO LABORER MARINE TERMINAL Ot I65.23 OCCLUSION AND STENOSIS OF BILATERAL [...] PERSONAL HISTORY OF URINARY CALCULI 11/08/2016 SLOANE OLUIS DO Ot Z87.891 PERSONAL HISTORY OF NICOTINE [...] Tripp K59.00 CONSTIPATION, UNSPECIFIED 01/22/2017 Pipo Tripp A L27.0 GEN SKIN ERUPTION DUE TO DRUGS [...] PAIN IN RIGHT HIP 09/24/2017 SHEA PAULSON DO Ot M25.512 PAIN IN LEFT SHOULDER 09/30/2017 SHEA PAULSON DO Ot M25.512 PAIN IN LEFT SHOULDER 10/20/2017 ADALBERTO WINKLER Ot E11.9 TYPE 2 DIABETES MELLITUS WITHOUT COMPLIC 10/20/2017 ADALBERTO WINKLER Ot E78.00 PURE HYPERCHOLESTEROLEMIA, UNSPECIFIED 10/20/2017 ADALBERTO WINKLER Ot I10 ESSENTIAL (PRIMARY) HYPERTENSION 10/20/2017 ADALBERTO WINKLER Ot J44.9 CHRONIC OBSTRUCTIVE PULMONARY DISEASE, U 10/20/2017 ADALBERTO WINKLER Ot K21.0 GASTRO-ESOPHAGEAL REFLUX DISEASE WITH ES 10/20/2017 ADALBERTO WINKLER Ot R10.32 LEFT LOWER QUADRANT PAIN 10/20/2017 ADALBERTO WINKLER Ot R11.2 NAUSEA WITH VOMITING, UNSPECIFIED 10/20/2017 ADALBERTO WINKLER Ot Z87.19 PERSONAL HISTORY OF OTHER DISEASES OF TH 10/20/2017 ADALBERTO WINKLER Ot Z87.442 PERSONAL HISTORY OF URINARY CALCULI 10/20/2017 ADALBERTO WINKLER Ot Z87.891 PERSONAL HISTORY OF NICOTINE DEPENDENCE 10/20/2017 ADALBERTO WINKLER Ot Z88.5 ALLERGY STATUS TO NARCOTIC AGENT STATUS 10/20/2017 ADALBERTO WINKLER Ot 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 10/20/2017 VALENCIA WINKLERIS Ot Z96.642 PRESENCE OF LEFT ARTIFICIAL HIP JOINT 10/20/2017 VALENCIA WINKLERIS Ot Z96.652 PRESENCE OF LEFT ARTIFICIAL KNEE JOINT 10/22/2017 VALENCIA WINKLERIS Ot E11.9 TYPE 2 DIABETES MELLITUS WITHOUT COMPLIC 10/22/2017 VALENCIA WINKLERIS Ot E78.00 PURE HYPERCHOLESTEROLEMIA, UNSPECIFIED 10/22/2017 VALENCIA WINKLERIS Ot I10 ESSENTIAL (PRIMARY) HYPERTENSION 10/22/2017 VALENCIA WINKLERIS Ot J44.9 CHRONIC OBSTRUCTIVE PULMONARY DISEASE, U 10/22/2017 VALENCIA WINKLERIS Ot K21.0 GASTRO-ESOPHAGEAL REFLUX DISEASE WITH ES 10/22/2017 VALENCIA WINKLERIS Ot R10.32 LEFT LOWER QUADRANT PAIN 10/22/2017 VALENCIA WINKLERIS Ot R11.2 NAUSEA WITH VOMITING, UNSPECIFIED 10/22/2017 VALENCIA WINKLERIS Ot Z87.19 PERSONAL HISTORY OF OTHER DISEASES OF TH 10/22/2017 VALENCIA WINKLERIS Ot Z87.442 PERSONAL HISTORY OF URINARY CALCULI 10/22/2017 VALENCIA WINKLERIS Ot Z87.891 PERSONAL HISTORY OF NICOTINE DEPENDENCE 10/22/2017 ADALBERTO WINKLER Ot Z88.5 ALLERGY STATUS TO NARCOTIC AGENT STATUS 10/22/2017 VALENCIA WINKLERIS Ot 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 10/22/2017 VALENCIA WINKLERIS Ot Z96.642 PRESENCE OF LEFT ARTIFICIAL HIP JOINT 10/22/2017 VALENCIA WINKLERIS Ot Z96.652 PRESENCE OF LEFT ARTIFICIAL KNEE JOINT Procedures There is no data. Results Test [...] Automated blood platelet mean volume measurement 9.8 [[facility]] 7.4-10.4 Automated blood neutrophils/100 leukocytes 62 % [...] 5-8.5 Urine-Protein Negative Negative Urine-RBC 0-2/HPF Urine-Specific [place] 1.010 1.000-1.030 Urine-WBC 0-2/HPF Urobilinogen 0.2 0.2-1.0 [...] 5-8.5 Urine-Protein 1+ Negative Urine-RBC 0-2/HPF Urine-Specific [place] >=1.030 1.000-1.030 Urine-WBC 0-2/HPF Urobilinogen 1.0 E.U./dL [...] Status Pt. Type Provider Facility Loc./Unit Complaint [id number] 10/20/2017 20:37:00 10/20/2017 23:52:00 DIS Emergency ADALBERTO WINKLER [facility] ER THROWING UP,COUGH,POSS BRONCHITIS [id number] 10/04/2017 15:25:00 10/04/2017 23:59:59 [facility] Outpatient SHEA PAULSON DO [facility] REHAB L ROTATOR CUFF REPAIR [id number] 12/07/2016 21:22:00 12/07/2016 23:53:00 DIS Emergency ELPIDIO BELLE [facility] ER FALL/KNEE AND HIP PAIN /R SHOULDER PAIN [id number] 12/04/2016 21:13:00 12/04/2016 22:33:00 DIS Emergency ELPIDIO BELLE [facility] ER RT HIP AND KNEE PAIN [id number] 11/01/2016 21:56:00 11/01/2016 22:50:00 DIS Emergency SLOANE LOUIS DO [facility] ER LOWER BACK/LT HIP PAIN [id number] 05/10/2016 10:14:00 05/10/2016 23:59:59 CLS Outpatient LISSET GRANADO [facility] CARD CAD,CAROTIUD ARTERIAL DISEASE [id number] 02/22/2016 20:10:00 02/22/2016 23:05:00 DIS Emergency ELPIDIO BELLE [facility] ER FALL [id number] 11/08/2015 14:22:00 11/08/2015 16:53:00 DIS Emergency RICHIE IRVIN, THOMAS [place] [facility] ER CHEST PAIN [id number] 10/09/2015 23:29:00 10/10/2015 00:52:00 DIS Emergency RICHIE IRVIN, THOMAS [place] [facility] ER RT HIP PAIN [id number] 08/22/2015 00:52:00 08/22/2015 01:36:00 DIS Emergency MALOU ROONEY MD [facility] ER BACK PAIN [id number] 06/11/2015 00:02:00 06/11/2015 00:50:00 DIS Emergency ALEX LAU MD [facility] ER L PINKY PAIN [id number] 05/01/2015 20:27:00 05/01/2015 21:39:00 DIS Emergency BROOKS DIA APRN [facility] ER VOMITING BLOOD POST GALL BLADDER REMOVAL [id number] 04/28/2015 06:00:00 04/28/2015 23:59:59 CLS Outpatient KAUSHIK SHEN MD [facility] SDC BILARY DYSKINESIA [id number] 04/25/2015 07:50:00 04/25/2015 23:59:59 CLS Outpatient KAUSHIK SHEN MD [facility] PREOP BILIARY DYSKINESIA [id number] 03/28/2015 09:39:00 03/28/2015 23:59:59 CLS Outpatient KAUSHIK SHEN MD [facility] CARD RUQ PAIN [id number] 03/17/2015 06:36:00 03/17/2015 23:59:59 CLS Outpatient KAUSHIK SHEN MD [facility] RAD RIGHT UPPER QUADRANT PAIN [id number] 03/16/2015 09:39:00 03/16/2015 12:10:00 DIS Outpatient KAUSHIK HSEN MD [facility] SDC PUD [id number] 03/14/2015 05:48:00 03/14/2015 23:59:59 CLS Outpatient KAUSHIK SHEN MD [facility] PREOP EGD [id number] 01/06/2015 01:36:00 01/06/2015 23:59:59 CLS Preadmit DIPESH JEFFERY MD [facility] ONC [id number] 01/05/2015 09:41:00 01/05/2015 00:01:00 DIS Outpatient DIPESH JEFFERY MD [facility] ONC [id number] 11/16/2014 07:05:00 11/16/2014 14:40:00 DIS Outpatient ARNOLD IRVIN FACCANDERSON FACP CCDS [facility] CATH ANGINA CAD FATIGUE [id number] 11/02/2014 14:18:00 11/02/2014 00:01:00 DIS Outpatient DIPESH JEFFERY MD [facility] ONC [id number] 07/29/2014 12:26:00 07/29/2014 23:59:59 CLS Outpatient GARY GIBBS APRN [facility] RAD COUGH,INHALANTS OF TOXIN [id number] 07/12/2014 12:03:00 07/12/2014 23:59:59 CLS Outpatient SAV CHAVES MD [facility] CARD PROSTATE CA [id number] 06/30/2014 14:12:00 06/30/2014 23:59:59 CLS Outpatient WILLIS NAZARIO DO [facility] RAD COPD,CAD,HYPERTENSION, HYPERLIPIDEMIA [id number] 03/15/2014 14:15:00 03/15/2014 23:59:59 CLS Outpatient JOSEPH LAU MD [facility] RT COPD [id number] 03/12/2014 13:58:00 03/12/2014 23:59:59 CLS Outpatient JOSEPH LAU MD [facility] CARD POSITIVE D-DIMER [id number] 03/11/2014 19:56:00 03/11/2014 22:29:00 DIS Emergency TITO COLE DO [facility] ER CHEST PAIN [id number] 03/10/2014 15:27:00 03/10/2014 23:59:59 CLS Outpatient JOSEPH LAU MD [facility] RAD COLD [id number] 12/30/2013 15:02:00 12/30/2013 23:59:59 CLS Outpatient JOSEPH LAU MD [facility] RAD NAUSEA,ABD BACK PAIN [id number] 12/20/2013 05:40:00 12/20/2013 06:44:00 DIS Emergency TITO COLE DO [facility] ER WOUND CHECK [id number] 12/19/2013 13:41:00 12/19/2013 14:56:00 DIS Emergency ELPIDIO BELLE [facility] ER R HAND SWELLING [id number] 08/19/2013 07:56:00 08/19/2013 23:59:59 CLS Outpatient KAUSHIK SHEN MD [facility] SDC VOMITING;WEIGHT LOSS [id number] 08/13/2013 10:18:00 08/13/2013 23:59:59 CLS Outpatient KAUSHIK SHEN MD [facility] PREOP VOMITING;WEIGHT LOSS [id number] 12/26/2012 19:22:00 12/26/2012 21:32:00 DIS Emergency SLOANE LOUIS DO [facility] ER FALL [id number] 12/18/2012 09:20:00 12/18/2012 23:59:59 CLS Outpatient RADHA LAU [facility] CARD AORTIC REGURGITATION [id number] 10/23/2012 11:24:00 10/23/2012 14:05:00 DIS Emergency THOMAS QUIROZ MD [facility] ER N/V [id number] 10/01/2012 13:35:00 10/01/2012 15:47:00 DIS Emergency ISATU MCDONALD DO [facility] ER FALL/LEFT HIP PAIN [id number] 10/23/2017 11:33:00 ACT Outpatient SCOTTY MEANS APRN [facility] RAD COPD [id number] 06/15/2014 07:00:00 Document Registration [id number] 06/11/2014 09:42:00 Document Registration [id number] 07/19/2012 18:45:00 Document Registration [id number] 04/16/2017 12:54:00 04/16/2017 23:59:00 DIS Outpatient ContrerasSaschau [id number] 01/22/2017 12:30:00 01/22/2017 16:05:00 [id number] 11/25/2016 13:24:00 11/25/2016 16:59:00 [id number] 11/23/2016 15:49:00 11/23/2016 23:59:00 DIS Outpatient Ben Saschau [id number] 11/08/2016 15:52:00 11/08/2016 23:59:00 DIS Outpatient ContrerasSaschau [id number] 11/01/2016 19:06:00 11/01/2016 23:59:00 DIS Outpatient BenSaschau [id number] 09/08/2016 15:18:00 09/08/2016 20:00:00 DIS Outpatient Mirta [facility] ER [id number] 03/27/2016 17:45:00 03/27/2016 23:59:00 DIS Outpatient BenSaschau [id number] 04/11/2017 15:58:21 Document Registration [id number] 02/20/2017 08:19:10 Document Registration [id number] 09/08/2016 17:05:49 Document Registration [id number] 03/27/2016 17:45:00 Document Registration [id number] 01/05/2015 09:41:27 ACT Document Registration
--- NOTE | 2017-10-25 13:33 | Diagnostic Imaging Report ---
Indication: COPD and asthma. Time of exam: 1:36 PM Correlation is made with prior study from 10/20/2017. Lungs are hyperinflated consistent with COPD. The heart size is stable. No infiltrates are detected. No effusion or pneumothorax is seen. Postop changes of the right shoulder are noted. Impression: No acute abnormality is detected. Dictated by: Dictated on workstation # [id number]
--- NOTE | 2017-10-25 14:59 | ED Respiratory ---
General Chief Complaint: Respiratory Problems Stated Complaint: COUGH Nursing Triage Note: PT CO OF PERSISTANT COUGH HAS SEEN DR DE LA CRUZ AND SEEN IN ED FOR COUGH, PT STATES HAD CT ANGIO ON 10/23 (SARAH CHANDLER MED STUDENT) History of Present Illness Date Seen by Provider: Oct 25, 2017 Time Seen by Provider: 14:30 Initial Comments This is a 72 y.o male presenting to the ED with complaint of dry cough that began 2 weeks ago 10/11. Pt was seen in the ED on the 10/22, for cough and abdominal pain. Pt received a CT of the abdomen, which was unremarkable. He was referred to Dr. De La Cruz on 10/23 who performed a CTA, which was unremarkable. Pt report he received a steroid injection as well as oral prednisone. Pt states this did not improve his symptoms and was suppose to F/U with Dr. De La Cruz today, but he is not in town. Pt states he is unable to sleep, headache, increased chest and rib pain. Pt states he coughs so hard he vomits. Pt feels SOB, he has been taking his nebulizer treatments and inhalers at home. PMH: COPD, asthma, HTN, Mitral valve prolapse (SARAH CHANDLER MED STUDENT) Allergies and Home Medications Allergies Coded Allergies: morphine (Verified Allergy, Severe, HIVES, N/V, 04/25/15) fentanyl (Verified Allergy, Mild, RESTLESS, 12/07/16) Home Medications Allopurinol 300 Mg Tablet, 150 MG PO DAILY, (Reported) TAKE 1/2 OF (300MG) TAB Atorvastatin Calcium 40 Mg Tablet, 40 MG PO HS, (Reported) Budesonide/Formoterol Fumarate 10.2 Gm Hfa.aer.ad, 2 PUFF IH BID, (Reported) Buspirone Hcl 10 Mg Tablet, 10 MG PO HS, (Reported) Cetirizine HCl 10 Mg Tablet, 10 MG PO DAILY, (Reported) Cyclobenzaprine HCl 10 Mg Tablet, 10 MG PO Q8H PRN for SPASMS Prescribed by: ELPIDIO ROMAN on 12/04/161 Ezetimibe 10 Mg Tablet, 1 TAB PO DAILY, (Reported) Fenofibrate Nanocrystallized 145 Mg Tablet, 145 MG PO DAILY, (Reported) Hydrochlorothiazide 25 Mg Tablet, 25 MG PO DAILY, (Reported) Hydrocodone Bit/Acetaminophen 1 Tab Tab, 1 EACH PO Q4H PRN for PAIN-MODERATE Prescribed by: MALOU ROONEY on 10/20/172337 Ketoprofen 75 Mg Capsule, 75 MG PO TID PRN for pain Prescribed by: ELPIDIO ROMAN on 12/04/162222 Lisinopril 40 Mg Tablet, 40 MG PO DAILY, (Reported) Metoprolol Succinate 100 Mg Tab.er.24h, 100 MG PO DAILY, (Reported) Ondansetron 4 Mg Tab.rapdis, 4 MG PO Q6H PRN for NAUSEA/VOMITING Prescribed by: MALOU ROONEY on 10/20/172337 Pantoprazole Sodium 40 Mg Tablet.dr, 40 MG PO DAILY, (Reported) Prednisone 20 Mg Tab, 40 MG PO DAILY Prescribed by: ELPIDIO ROMAN on 12/04/162222 Sucralfate 1 Gm Tablet, 1 TAB PO QID PRN for ABDOMINAL PAIN, (Reported) Tamsulosin Hcl 0.4 Mg Cap, 0.4 MG PO DAILY, (Reported) Tiotropium Counselor 18 Mcg Cap.w.dev, 2 PUFF IH DAILY, (Reported) Tramadol HCl 50 Mg Tablet, 50 MG PO Q4H Prescribed by: SLOANE LOUIS on 11/01/16 2241 Patient Home Medication List Home Medication List Reviewed: Yes (SARAH CHANDLER STUDENT) Review of Systems Constitutional: see HPI EENTM: no symptoms reported Respiratory: see HPI, cough; No phlegm; short of breath Cardiovascular: see HPI, chest pain Gastrointestinal: see HPI, vomiting Genitourinary: no symptoms reported Musculoskeletal: no symptoms reported Skin: no symptoms reported Psychiatric/Neurological: See HPI, Headache Hematologic/Lymphatic: No Symptoms Reported (SARAH CHANDLER MED STUDENT) Past Nbqpytj-Qbwdal-Lqffyq Hx Patient Social History Alcohol Use: Denies Use Recreational Drug Use: No Smoking Status: Former Smoker Type Used: Cigarettes Former Smoker, Quit: Nov 06, 1990 2nd Hand Smoke Exposure: No Recent Foreign Travel: No Contact w/Someone Who Travel: No Recent Infectious Disease Expo: No Recent Hopitalizations: No Physical Abuse: No Sexual Abuse: No (SARAH CHANDLER MED STUDENT) Immunizations Up To Date Tetanus Booster (TDap): Less than 5yrs Date of Pneumonia Vaccine: Feb 06, 2015 Date of Influenza Vaccine: Jan 24, 2016 (SARAH CHANDLER STUDENT) Seasonal Allergies Seasonal Allergies: Yes (SARAH CHANDLER STUDENT) Past Medical History Surgeries: Yes (CARPAL TUNNEL BILAT, BACK X3, R SHOULDER REPLACEMEN, L HIP REPLACE, L TKR) Abdominal, Cardiac, Joint Replacement, Orthopedic, Transurethral Resection Respiratory: Yes Asthma, COPD Currently Using CPAP: No Currently Using BIPAP: No Cardiac: Yes (MITRAL VALVE PROLAPSE) High Cholesterol, Hypertension, Valvular Heart Disease Neurological: No Reproductive Disorders: Yes Sexually Transmitted Disease: No HIV/AIDS: No Genitourinary: Yes Prostate Problems, Kidney Stones Gastrointestinal: Yes (FATTY LIVER) Gastroesophageal Reflux, Liver Disease/Jaundice, Polyps, Esophagitis, Hiatal Hernia Musculoskeletal: Yes (chronic hip and knee pain) Degenerate Disk Disease, Arthritis, Back Injury, Chronic Back Pain, Gout Endocrine: Yes Diabetes, Non-Insulin dep HEENT: No Loss of Vision: Bilateral Hearing Impairment: Denies Cancer: Yes Prostate Psychosocial: No Nursing Suicide Risk Score: 0 Integumentary: No Blood Disorders: No Adverse Reaction/Blood Tranf: No (HAS HAD BLOOD WITH NO REACTION) (SARAH CHANDLER STUDENT) Family Medical History No Pertinent Family Hx, Other Conditions/Hx (ASRAH CHANDLER STUDENT) Physical Exam Vital Signs - First Documented 10/25/17 13:00 Temp 98.3 Pulse 97 Resp 24 B/P (MAP) 143/84 (103) Pulse Ox 99 (THOMAS QUIROZ MD) Capillary Refill : Less Than 3 Seconds (SARAH CHANDLER STUDENT) Height: 5'9.00" Weight: 183lbs. 1.6oz. 83.346255eu; 32.48 BMI Method:Stated General Appearance: WD/WN, no apparent distress HEENT: PERRL/EOMI Respiratory: chest non-tender, lungs clear, no respiratory distress, no accessory muscle use, decreased breath sounds (on expiration ) Cardiovascular: regular rate, rhythm, no edema, no gallop, no JVD, no murmur Gastrointestinal: normal bowel sounds, non tender, soft, no organomegaly, no pulsatile mass Neurologic/Psychiatric: no motor/sensory deficits, alert, normal mood/affect, oriented x 3 Skin: normal color, warm/dry (SARAH CHANDLER) Progress/Results/Core Measures Suspected Sepsis Recent Fever Within 48 Hours: No Infection Criteria Present: None New/Unexplained Altered Menta: No Sepsis Screen: No Definite Risk SIRS Temperature:98.3 Pulse: 97 Respiratory Rate: 24 Blood Pressure 143 /84 Mean: 103 (SARAH CHANDLER) Results/Orders My Orders Orders - THOMAS QUIROZ MD Chest Pa/Lat (2 View) (10/25/17 12:53) (THOMAS QUIROZ MD) Vital Signs/I&O 10/25/17 10/25/17 13:00 15:50 Temp 98.3 98.3 Pulse 97 97 Resp 24 24 B/P (MAP) 143/84 (103) 143/84 (103) Pulse Ox 99 99 (THOMAS QUIROZ MD) Vital Signs/I&O Capillary Refill : Less Than 3 Seconds (SARAH CHANDLER) Blood Pressure Mean: 103 Progress Note : Progress Note This patient was seen and examined by Sarah's JET [employer] student. Case was presented to me. Chest x-ray was ordered based on patient's history and age. Chest x-ray was viewed by me and report reviewed. There were no acute abnormalities. Patient walked out of the room and left the building before examined by this provider. I did attempt multiple times to contact the patient on both phone numbers provided. The first phone number now belongs to someone other than this patient. The second number is persistently busy. It should be noted that this patient does take lisinopril and this may to some degree be contributing to his cough. I did want to call this to the patient's attention that have been unable to reach him as of October 28 at 19:44 p.m. Patient did not notify any staff that he was leaving before his departure. (THOMAS QUIROZ MD) Diagnostic Imaging Diagonstic Imaging: Xray Plain Films/CT/US/NM/MRI: chest Comments X-ray and report reviewed by me, see report below: NAME: ТАТЬЯНА [facility]OCKET[facility] REC#: [id number] PT STATUS: REG ER : 1945 PHYSICIAN: THOMAS QUIROZ MD ADMIT DATE: 10/25/17/ER Draft Date of Exam:10/25/17 CHEST PA/LAT (2 VIEW) Indication: COPD and asthma. Time of exam: 1:36 PM Correlation is made with prior study from 10/20/2017. Lungs are hyperinflated consistent with COPD. The heart size is stable. No infiltrates are detected. No effusion or pneumothorax is seen. Postop changes of the right shoulder are noted. Impression: No acute abnormality is detected. Dictated on workstation # [id number] Dict: 10/25/17 1327 Trans: 10/25/17 1332 [facility] [id number] Interpreted by: PABLO WHITE MD Electronically signed by: (SARAH CHANDLER MED STUDENT) Departure Impression Primary Impression: Cough Disposition: 07 AGAINST MEDICAL ADVICE Condition: Against Medical Advice Departure-Patient Inst. Referrals: NO,LOCAL PHYSICIAN (PCP/Family) Primary Care Physician Copy Copies To 1: WILLIS DE LA CRUZ MCKENZIE MED STUDENT Oct 25, 2017 14:59 THOMAS QUIROZ MD Oct 28, 2017 19:15
[2017-10-25 15:50] VITALS: BP 143/84
== END 2017-10-25 15:50 | disposition left against medical advice (07) ==
LOC: EDUNIT# 12:42 → ER 12:44
DX: R05 Cough (principal); R51 Headache; R07.81 Pleurodynia; G47.9 Sleep disorder, unspecified; J44.9 Chronic obstructive pulmonary disease, unspecified; E78.00 Pure hypercholesterolemia, unspecified; I10 Essential (primary) hypertension; K21.9 Gastro-esophageal reflux disease without esophagitis; E11.9 Type 2 diabetes mellitus without complications; Z96.612 Presence of left artificial shoulder joint; Z96.642 Presence of left artificial hip joint; Z85.46 Personal history of malignant neoplasm of prostate; Z87.19 Personal history of other diseases of the digestive system; Z87.442 Personal history of urinary calculi; Z96.652 Presence of left artificial knee joint; Z88.5 Allergy status to narcotic agent; Z88.8 Allergy status to other drugs, medicaments and biological substances; Z79.52 Long term (current) use of systemic steroids; Z87.891 Personal history of nicotine dependence
CPT/HCPCS: 71046

== ENCOUNTER 2017-11-17 17:10 | Emergency (ER) | payer MEDICARE, MEDICAID ==
[~2017-11-17] VITALS: Ht 175.3 cm; Wt 84.4 kg
--- OUTSIDE RECORDS SUMMARY | 2017-11-17 17:38 | XMS REPORT | Continuity of Care Document ---
Author Author [facility] Organization [facility] Address Unknown Phone Unavailable Allergies Active Description Code Type Severity Reaction Onset Reported/Identified Relationship to Patient Clinical Status Yes FENTANYL FENTANYL MODERATE Yes MORPHINE MORPHINE MODERATE Yes FENTANYL MODERATE DERMATOLOGICAL - TANESHA Yes MORPHINE MODERATE DERMATOLOGICAL - TANESHA Yes morphine [id number] Drug Allergy Severe N/A 07/19/2012 Yes fentanyl [id number] Drug Allergy Unknown N/A 08/19/2013 Yes morphine [id number] Drug Allergy Severe HIVES, N/V 12/07/2016 Yes fentanyl [id number] Drug Allergy Mild RESTLESS 12/07/2016 Medications Medication [...] Coded Attending Type Code Diagnosis Diagnosed By 03/07/1454 SHEA PAULSON DO Ot M25.512 PAIN IN LEFT SHOULDER 07/21/2012 Ot 272.4 HYPERLIPIDEMIA NEC/NOS 07/21/2012 Ot 401.9 HYPERTENSION NOS 07/21/2012 Ot 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 07/21/2012 Ot 424.1 AORTIC VALVE DISORDER [...] QUIROZ MD Ot 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 10/23/2012 THOMAS QUIROZ MD Ot 493.20 [...] 847.9 SPRAIN OF BACK NOS 12/26/2012 SLOANE LUOIS DO Ot 924.01 CONTUSION OF HIP 12/26/2012 [...] 03/10/2014 JOSEPH LAU MD Ot 789.00 03/11/2014 TIOT COLE DO Ot 496 CHR AIRWAY OBSTRUCT NEC 03/11/2014 TITO COLE DO Ot 530.81 ESOPHAGEAL REFLUX 03/11/2014 TITO COLE DO Ot 786.50 CHEST PAIN NOS 03/11/2014 TITO COLE DO Ot 786.59 CHEST PAIN NEC 03/11/2014 TITO COLE DO Ot 790.99 BLOOD EXAM - OTH NONSPECIFIC FINDINGS 03/11/2014 TITO COLE DO, Ot V58.69 OT MED,LT,CURRENT USE 04/06/2014 JOSEPH [...] Ot V58.69 OT MED,LT, CURRENT USE 08/10/2014 SAV CHAVES MD Ot 185 08/13/2014 WILLIS NAZARIO DO Ot 272.4 08/13/2014 WILLIS NAZARIO DO Ot 401.9 08/13/2014 WILLIS NAZARIO DO Ot 414.00 08/13/2014 WILLIS NAZARIO DO Ot 496 08/27/2014 ARAVIND WILLIS BARON Ot 272.4 08/27/2014 ARAVIND WILLIS Damian Ot 401.9 08/27/2014 ARAVIND WILLIS Damian Ot 414.00 08/27/2014 ARAVIND WILLIS Damian Ot 496 09/04/2014 GARY GIBBS FURNITURE DELIVERY DRIVER Ot 786.2 09/04/2014 JOSE D IRVIN, DIPESH Wall Ot 185 09/17/2014 DIPESH JEFFERY MD E Ot 185 09/28/2014 ANDIE IRVIN, SAV A Ot 185 10/01/2014 GARY GIBBS FURNITURE DELIVERY DRIVER Ot 786.2 11/02/2014 JOSE D IRVIN, DIPESH Wall Ot 185 MALIGN NEOPL PROSTATE 11/02/2014 JOSE D IRVIN, DIPESH Wall Ot V58.0 ENCOUNTER FOR RADIOTHERAPY 11/05/2014 DIPESH JEFFERY MD E Ot 185 11/08/2014 JOSE D IRVIN, DIPESH Wall Ot 185 11/09/2014 JOSE D IRVIN, DIPESH E Ot 185 11/16/2014 RADHA LAU Ot 424.1 11/16/2014 HERMELINDA IRVIN, KAUSHIK Ot 211.1 11/16/2014 HERMELINDA IRVIN, KAUSHIK Ot 530.11 11/16/2014 HERMELINDA IRVIN, KAUSHIK Ot 535.50 11/16/2014 HERMELINDA IRVIN, KAUSHIK Ot 553.3 11/16/2014 HERMELINDA IRVIN, JOSHAAKI Ot V72.84 11/16/2014 SID IRVIN, JOSEPH Merchant Ot 724.5 11/16/2014 SID IRVIN, JOSEPH Merchant Ot 787.02 11/16/2014 SID IRVIN, JOSEPH Merchant Ot 789.00 11/16/2014 SID IRVIN, JOSEPH Merchant Ot 496 11/16/2014 ISD IRVIN, JOSEPH Merchant Ot 496 11/16/2014 SID IRVIN, JOSEPH Merchant Ot 786.50 11/16/2014 SID IRVIN, JOSEPH Merchant Ot 796.4 11/16/2014 ARAVIND WILLIS Damian Ot 272.4 11/16/2014 ARAVIND WILLIS Damian Ot 401.9 11/16/2014 ARAVIND BARON WILLIS Damian Ot 414.00 11/16/2014 ARAVIND BARON WILLIS Damian Ot 496 11/16/2014 Ot 605 11/16/2014 Ot 607.1 11/16/2014 Ot V72.83 11/16/2014 Ot V74.8 11/16/2014 ANDIE IRVIN, SAV Valencia Ot 185 11/16/2014 GARY GIBBS APRN Ot [...] HISTORY OF TOBACCO USE 11/16/2014 ARNOLD IRVIN FAC, ALI FACP CCDS Ot V58.69 OTH MED,LT,CURRENT USE 11/29/2014 JOSE D IRVIN, DIPESH E Ot 185 12/06/2014 JOSE D IRVIN, DIPESH [...] 04/07/2015 KAUSHIK SHEN MD Ot K76.0 04/07/2015 KAUSHIK SHEN MD Ot R10.11 04/12/2015 KAUSHIK SHEN MD Ot K76.0 04/12/2015 KAUSHIK SHEN MD Ot R10.11 04/19/2015 KAUSHIK SHEN MD Ot R10.11 04/22/2015 KIDO MD, TAKAAKI Ot R10.11 04/25/2015 JOSE D IRVIN, DIPESH E Ot 185 04/25/2015 JOSE D IRVIN, DIPESH Wall Ot 185 04/28/2015 HERMELINDA IRVIN, KAUSHIK Ot K81.1 CHRONIC CHOLECYSTITIS 05/01/2015 BROOKS DIA FURNITURE DELIVERY DRIVER Ot G89.18 OTHER ACUTE POSTPROCEDURAL PAIN 05/01/2015 BROOKS DIA FURNITURE DELIVERY DRIVER Ot R11.2 NAUSEA WITH VOMITING, UNSPECIFIED 05/01/2015 BROOKS DIA FURNITURE DELIVERY DRIVER Ot Z90.49 ACQUIRED ABSENCE OF OTHER SPECIFIED PART 05/24/2015 HERMELINDA IRVIN, MILADISKI Ot K82.8 05/24/2015 HERMELINDA IRVIN, TAKAAKI Ot Z01.812 05/24/2015 HERMELINDA IRVIN, JOSHAAKI Ot Z11.2 06/01/2015 HERMELINDA IRVIN, JOSHAAKI Ot K82.8 06/01/2015 HERMELINDA IRVIN, JOSHAAKI Ot Z01.812 06/01/2015 HERMELINDA IRVIN, JOSHAAKI Ot Z11.2 06/11/2015 SID IRVIN, ALEX Valencia Ot L03.012 CELLULITIS OF LEFT FINGER 08/22/2015 NEVIN IRVIN, MALOU Merchant Ot G89.29 OTHER CHRONIC PAIN 08/22/2015 NEVIN IRVIN, MALOU Merchant Ot M54.5 LOW BACK PAIN 08/23/2015 NEVIN IRVIN, MALOU Merchant Ot G89.29 OTHER CHRONIC PAIN 08/23/2015 MALOU ROONEY MD Ot M54.5 LOW BACK PAIN 10/10/2015 RICHIE IRVIN, THOMAS T Ot M16.11 UNILATERAL PRIMARY OSTEOARTHRITIS, RIGHT 10/13/2015 RICHIE IRVIN, THOMAS T Ot M16.11 UNILATERAL PRIMARY OSTEOARTHRITIS, RIGHT 11/08/2015 RICHIE IRVIN, THOMAS T Ot F41.9 ANXIETY DISORDER, UNSPECIFIED 11/08/2015 RICHIE IRVIN, THOMAS T Ot R07.89 OTHER CHEST PAIN 11/08/2015 THOMAS QUIROZ MD Ot R07.9 CHEST PAIN, UNSPECIFIED 11/09/2015 THOMAS QUIROZ MD Ot F41.9 ANXIETY DISORDER, UNSPECIFIED 11/09/2015 RICHIE IRVIN, THOMAS T Ot R07.89 OTHER CHEST PAIN 11/09/2015 RICHIE IRVIN, THOMAS Fairchild Ot R07.9 CHEST PAIN, UNSPECIFIED 02/22/2016 ELPIDIO [...] IMMUNIZATION 02/22/2016 ELPIDIO BELLE Ot Z79.899 OTHER HALF-WAY (CURRENT) DRUG THERAPY 02/22/2016 ELPIDIO BELLE Ot Z87.891 PERSONAL HISTORY OF NICOTINE DEPENDENCE 02/22/2016 ELPIDIO BELLE Ot Z96.642 PRESENCE OF LEFT ARTIFICIAL HIP JOINT 02/23/2016 RADHA LAU Ot 424.1 AORTIC VALVE DISORDER 02/23/2016 KAUSHIK SHEN MD Ot 211.1 BENIGN NEOPLASM STOMACH 02/23/2016 KAUSHIK SHEN MD Ot 530.11 REFLUX ESOPHAGITIS 02/23/2016 KAUSHIK SHEN MD Ot 535.50 UNSP GASTRITIS GASTRODUODENITIS W/O ME 02/23/2016 KAUSHIK SHNE MD Ot 553.3 DIAPHRAGMATIC HERNIA 02/23/2016 KAUSHIK [...] ATHEROSCLER NOS TYPE VESSEL, NATIV 02/23/2016 WILLIS NAZRAIO DO Ot 496 CHR AIRWAY OBSTRUCT NEC 02/23/2016 Ot 605 REDUN PREPUCE PHIMOSIS 02/23/2016 Ot 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 02/23/2016 Ot V72.83 EXAM PRE- OPERATIVE NEC 02/23/2016 Ot V74.8 SCREEN- BACTERIAL DIS NEC 02/23/2016 ANDIE IRVIN, SAV Valencia Ot 185 MALIGN NEOPL PROSTATE 02/23/2016 GARY GIBBS APRN Ot 786.2 COUGH 02/23/2016 JOSE D IRVIN, DIPESH Wall Ot 185 02/23/2016 KAUSHIK SHEN MD Ot [...] SPECIFIED DISEASES OF GALLBLADDER 02/23/2016 KAUSHIK SHEN MD Ot Z01.812 ENCOUNTER FOR PREPROCEDURAL LABORATORY E 02/23/2016 HERMELINDA IRVIN, KAUSHIK Ot Z11.2 ENCOUNTER FOR SCREENING FOR OTHER [...] IMMUNIZATION 03/07/2016 ELPIDIO BELLE Ot Z79.899 OTHER DIRECTOR OF SPEECH PATHOLOGY (CURRENT) DRUG THERAPY 03/07/2016 ELPIDIO BELLE Ot Z87.891 PERSONAL HISTORY OF NICOTINE DEPENDENCE 03/07/2016 ELPIDIO BELLE Ot Z96.642 PRESENCE OF LEFT ARTIFICIAL HIP JOINT 06/04/2016 LISSET GRANADO Ot E78.4 OTHER HYPERLIPIDEMIA 06/04/2016 LISSET GRANADOP Ot I10 ESSENTIAL (PRIMARY) HYPERTENSION 06/04/2016 LISSET GRANADO Ot 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 06/04/2016 LISSET GRANADO Ot I34.0 NONRHEUMATIC MITRAL (VALVE) INSUFFICIENC 06/04/2016 BAIMA, LISSET L RESIDENCE DIRECTOR Ot I35.1 NONRHEUMATIC AORTIC (VALVE) INSUFFICIENC 06/04/2016 LISSET GRANADO RESIDENCE DIRECTOR Ot I65.23 OCCLUSION AND STENOSIS OF BILATERAL COBB 06/07/2016 LISSET GRANADO RESIDENCE DIRECTOR Ot E78.4 OTHER HYPERLIPIDEMIA 06/07/2016 LISSET GRANADO RESIDENCE DIRECTOR Ot I10 ESSENTIAL (PRIMARY) HYPERTENSION 06/07/2016 LISSET GRANADO RESIDENCE DIRECTOR Ot 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 06/07/2016 LISSET GRANADO RESIDENCE DIRECTOR Ot I34.0 NONRHEUMATIC MITRAL (VALVE) INSUFFICIENC 06/07/2016 LISSET GRANADO RESIDENCE DIRECTOR Ot I35.1 NONRHEUMATIC AORTIC (VALVE) INSUFFICIENC 06/07/2016 LISSET GRANADO RESIDENCE DIRECTOR Ot I65.23 OCCLUSION AND STENOSIS OF BILATERAL COBB 09/08/2016 Roberth Kirbyya W 401.0 MALIGNANT ESSENTIAL HYPERTENSION 09/08/2016 LobRoberthya W 530.81 ESOPHAGEAL REFLUX 09/08/2016 LobRoberthya A 786.5 CHEST PAIN 09/08/2016 LobRoberthya W I10 ESSENTIAL (PRIMARY) HYPERTENSION 09/08/2016 LobRoberthya W K21.9 GASTRO-ESOPHAGEAL REFLUX DISEASE WITHOUT ESOPHAGITIS 09/08/2016 Roberth Kirbyya A R07.89 OTHER CHEST PAIN 11/01/2016 RADHA LAUP Ot 424.1 AORTIC VALVE DISORDER 11/01/2016 KAUSHIK SHEN MD Ot 211.1 BENIGN NEOPLASM STOMACH 11/01/2016 KAUSHIK SHEN MD Ot 530.11 REFLUX ESOPHAGITIS 11/01/2016 KAUSHIK HSEN MD Ot 535.50 UNSP GASTRITIS GASTRODUODENITIS W/O ME 11/01/2016 KAUSHIK SHEN MD Ot 553.3 DIAPHRAGMATIC HERNIA 11/01/2016 KAUSHIK SHEN MD Ot V72.84 EXAM PRE-OPERATIVE NOS 11/01/2016 JOSEPH LAU MD Ot 724.5 BACKACHE NOS 11/01/2016 JOSEPH LAU [...] LIVER, NOT ELSEWHERE C 11/01/2016 KAUSHIK SHEN MD, Ot R10.11 RIGHT UPPER QUADRANT PAIN 11/01/2016 KAUSHIK SHEN MD Ot K27.9 PEPTIC ULC, SITE UNSP, UNSP AC OR CHR 11/01/2016 KAUSHIK SHEN MD Ot Z01.818 ENCOUNTER FOR OTHER PREPROCEDURAL EXAMIN 11/01/2016 KAUSHIK SHEN MD Ot R10.11 RIGHT UPPER QUADRANT PAIN 11/01/2016 KAUSHIK SHEN MD Ot K82.8 OTHER SPECIFIED DISEASES OF GALLBLADDER 11/01/2016 KUASHIK SHEN MD Ot Z01.812 ENCOUNTER FOR PREPROCEDURAL LABORATORY E 11/01/2016 KAUSHIK SHEN MD Ot Z11.2 ENCOUNTER FOR SCREENING FOR OTHER BACTER 11/01/2016 LISSET GRANADO RESIDENCE DIRECTOR Ot E78.4 OTHER HYPERLIPIDEMIA 11/01/2016 LISSET GRANADO RESIDENCE DIRECTOR Ot I10 ESSENTIAL (PRIMARY) HYPERTENSION 11/01/2016 LISSET GRANADO RESIDENCE DIRECTOR Ot 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 11/01/2016 LISSET GRANADO RESIDENCE DIRECTOR Ot I34.0 NONRHEUMATIC MITRAL (VALVE) INSUFFICIENC 11/01/2016 LISSET GRANADO RESIDENCE DIRECTOR Ot I35.1 NONRHEUMATIC AORTIC (VALVE) INSUFFICIENC 11/01/2016 LISSET GRANADO RESIDENCE DIRECTOR Ot I65.23 OCCLUSION AND STENOSIS OF BILATERAL COBB 11/01/2016 SLOANE LOUIS DO Ot E11.9 TYPE 2 DIABETES MELLITUS WITHOUT COMPLIC 11/01/2016 ALIA LOUIS DOA K Ot E78.00 PURE HYPERCHOLESTEROLEMIA, UNSPECIFIED 11/01/2016 SLOANE LOUIS DO Ot G89.29 OTHER CHRONIC PAIN 11/01/2016 SLOANE LOUIS DO Ot I10 ESSENTIAL (PRIMARY) HYPERTENSION 11/01/2016 SLOANE LOUIS DO Ot J44.9 CHRONIC OBSTRUCTIVE PULMONARY DISEASE, U 11/01/2016 SLOANE LOUIS DO Ot K21.9 GASTRO-ESOPHAGEAL REFLUX DISEASE WITHOUT 11/01/2016 SLOANE LOUIS DO Ot M19.90 UNSPECIFIED OSTEOARTHRITIS, UNSPECIFIED 11/01/2016 SLOANE LOUIS DO Ot M54.5 LOW BACK PAIN 11/01/2016 SLOANE LOUIS DO Ot Z85.46 PERSONAL HISTORY OF MALIGNANT NEOPLASM O 11/01/2016 SLOANE LOUIS DO Ot Z87.19 PERSONAL HISTORY OF OTHER DISEASES OF TH 11/01/2016 SLOANE LOUIS DO Ot Z87.442 PERSONAL HISTORY OF URINARY CALCULI 11/01/2016 SLOANE LOUIS DO Ot Z87.891 PERSONAL HISTORY OF NICOTINE DEPENDENCE 11/01/2016 SLOANE LOUIS DO Ot 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 11/01/2016 SLOANE LOUIS DO Ot Z96.642 PRESENCE OF LEFT ARTIFICIAL HIP JOINT 11/08/2016 SLOANE LOUIS DO Ot E11.9 TYPE 2 DIABETES MELLITUS WITHOUT COMPLIC 11/08/2016 SLOANE LOUIS DO K Ot E78.00 PURE HYPERCHOLESTEROLEMIA, UNSPECIFIED 11/08/2016 SLOANE LOUIS DO Ot G89.29 OTHER CHRONIC PAIN 11/08/2016 SLOANE LOUIS DO Ot I10 ESSENTIAL (PRIMARY) HYPERTENSION 11/08/2016 HERIBERTO BARON SLOANE Cyndee Ot J44.9 CHRONIC OBSTRUCTIVE PULMONARY DISEASE, U 11/08/2016 SLOANE LOUIS DO Ot K21.9 GASTRO-ESOPHAGEAL REFLUX DISEASE WITHOUT 11/08/2016 SLOANE LOUIS DO Ot M19.90 UNSPECIFIED OSTEOARTHRITIS, UNSPECIFIED 11/08/2016 SLOANE LOUIS DO Ot M54.5 LOW BACK PAIN 11/08/2016 HERIBERTO BARON SLOANE Cotter Ot Z85.46 PERSONAL HISTORY OF MALIGNANT NEOPLASM O 11/08/2016 SLOANE LOUIS DO Ot Z87.19 PERSONAL HISTORY OF OTHER DISEASES OF TH 11/08/2016 HERIBERTO BARON SLOANE Cotter Ot Z87.442 PERSONAL HISTORY OF URINARY CALCULI 11/08/2016 HERIBERTO BARON SLOANE Cotter Ot Z87.891 PERSONAL HISTORY OF NICOTINE DEPENDENCE 11/08/2016 HERIBERTO BARON SLOANE Cotter Ot 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 11/08/2016 HERIBERTO BARON SLOANE Cotter Ot Z96.642 PRESENCE OF LEFT ARTIFICIAL HIP JOINT 11/25/2016 Pipo Tripp 300.01 PANIC DISORDER WITHOUT AGORAPHOBIA 11/25/2016 Pipo [...] KNEE JOINT 12/07/2016 JOSE D IRVIN, DIPESH E Ot 185 12/07/2016 ELPIDIO BELLE Ot E11.9 [...] M25.552 PAIN IN LEFT HIP 12/11/2016 ELPIDIO BELEL Ot M25.562 PAIN IN LEFT KNEE 12/11/2016 [...] BELLE Ot I10 ESSENTIAL (PRIMARY) HYPERTENSION 12/13/2016 ELPIDOI BELLE Ot J44.9 CHRONIC OBSTRUCTIVE PULMONARY DISEASE, [...] INITIAL ENCOUNT 12/13/2016 ELPIDIO BELLE Ot Y92.89 [facility] PLAC[facility] THE PL[facility] OF OCCURRENCE OF 12/13/2016 [...] LEFT ARTIFICIAL ANKLE JOINT 01/22/2017 Pipo Tripp W 276.51 DEHYDRATION 01/22/2017 Pipo Tripp 338.18 OTHER [...] Z87.442 PERSONAL HISTORY OF URINARY CALCULI 10/20/2017 PETERSONADALBERTO Ot Z87.891 PERSONAL HISTORY OF NICOTINE DEPENDENCE 10/20/2017 BELENADALBERTO CASTELLON Ot Z88.5 ALLERGY STATUS TO NARCOTIC AGENT STATUS 10/20/2017 BELENADALBERTO CASTELLON Ot 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 10/20/2017 BELENCANDEVALENCIAIS Ot Z96.642 PRESENCE OF LEFT ARTIFICIAL HIP JOINT 10/20/2017 BELENVALENCIA CASTELLONIS Ot Z96.652 PRESENCE OF LEFT ARTIFICIAL KNEE JOINT 10/22/2017 VALENCIA WINKLERIS Ot E11.9 TYPE 2 DIABETES MELLITUS WITHOUT COMPLIC 10/22/2017 VALENCIA WINKLERIS Ot E78.00 PURE HYPERCHOLESTEROLEMIA, UNSPECIFIED 10/22/2017 ADALBERTO WINKLER Ot I10 ESSENTIAL (PRIMARY) HYPERTENSION 10/22/2017 ADALBERTO WINKLER Ot J44.9 CHRONIC OBSTRUCTIVE PULMONARY DISEASE, U 10/22/2017 ADALBERTO WINKLER Ot K21.0 GASTRO-ESOPHAGEAL REFLUX DISEASE WITH ES 10/22/2017 ADALBERTO WINKLER Ot R10.32 LEFT LOWER QUADRANT PAIN 10/22/2017 VALENCIA WNIKLERIS Ot R11.2 NAUSEA WITH VOMITING, UNSPECIFIED 10/22/2017 BELENVALENCIA CASTELLONIS Ot Z87.19 PERSONAL HISTORY OF OTHER DISEASES OF TH 10/22/2017 ADALBERTO WINKLER Ot Z87.442 PERSONAL HISTORY OF URINARY CALCULI 10/22/2017 BELENADALBERTO CASTELLON Ot Z87.891 PERSONAL HISTORY OF NICOTINE DEPENDENCE 10/22/2017 ADALBERTO WINKLER Ot Z88.5 ALLERGY STATUS TO NARCOTIC AGENT STATUS 10/22/2017 ADALBERTO WINKLER Ot 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 10/22/2017 BELENVALENCIA CASTELLONIS Ot Z96.642 PRESENCE OF LEFT ARTIFICIAL HIP JOINT 10/22/2017 BELENVALENCIA CASTELLONIS Ot Z96.652 PRESENCE OF LEFT ARTIFICIAL KNEE JOINT 10/24/2017 SCOTTY MEANS APRN Ot E87.1 HYPO-OSMOLALITY AND HYPONATREMIA 10/24/2017 SCOTTY MEANS APRN Ot J43.9 EMPHYSEMA, UNSPECIFIED 10/24/2017 SCOTTY MEANS APRN Ot R63.4 ABNORMAL WEIGHT LOSS 10/25/2017 RADHA LAU Ot 424.1 AORTIC VALVE DISORDER 10/25/2017 HERMELINDA IRVIN, KAUSHIK Ot 211.1 BENIGN NEOPLASM STOMACH 10/25/2017 HERMELINDA IRVIN, KAUSHIK Ot 530.11 REFLUX ESOPHAGITIS 10/25/2017 HERMELINDA IRVIN, KAUSHIK Ot 535.50 UNSP GASTRITIS GASTRODUODENITIS W/O ME 10/25/2017 HERMELINDA IRVIN, KAUSHIK Ot 553.3 DIAPHRAGMATIC HERNIA 10/25/2017 HERMELINDA IRVIN, KAUSHIK Ot V72.84 EXAM PRE-OPERATIVE NOS 10/25/2017 SID IRVIN, JOSEPH Merchant Ot 724.5 BACKACHE NOS 10/25/2017 SID IRVIN, JOSEPH Merchant Ot 787.02 NAUSEA ALONE 10/25/2017 SID IRVIN, JOSEPH Merchant Ot 789.00 ABDOMINAL PAIN, UNSPECIFIED SITE 10/25/2017 SID IRVIN, JOSEPH Merchant Ot 496 CHR AIRWAY OBSTRUCT NEC 10/25/2017 SID IRVIN, JOSEPH Merchant Ot 496 CHR AIRWAY OBSTRUCT NEC 10/25/2017 JOSEPH LAU MD Ot 786.50 CHEST PAIN NOS 10/25/2017 SID IRVIN, JOSEPH Merchant Ot 796.4 ABN CLINICAL FINDING NEC 10/25/2017 WILLIS NAZARIO DO Ot 272.4 HYPERLIPIDEMIA NEC/NOS 10/25/2017 WILLIS NAZARIO DO Ot 401.9 HYPERTENSION NOS 10/25/2017 WILLIS NAZARIO DO Ot 414.00 CORON ATHEROSCLER NOS TYPE VESSEL, NATIV 10/25/2017 WILLIS NAZARIO DO Ot 496 CHR AIRWAY OBSTRUCT NEC 10/25/2017 Ot 605 REDUN PREPUCE PHIMOSIS 10/25/2017 Ot 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 10/25/2017 Ot V72.83 EXAM PRE- OPERATIVE NEC 10/25/2017 Ot V74.8 SCREEN- BACTERIAL DIS NEC 10/25/2017 ANDIE IRVIN, SAV Valencia Ot 185 MALIGN NEOPL PROSTATE 10/25/2017 GARY GIBBS APRN Ot 786.2 COUGH 10/25/2017 JOSE D IRVIN, DIPESH Wall Ot 185 10/25/2017 KAUSHIK SHEN MD Ot K76.0 FATTY (CHANGE OF) LIVER, NOT ELSEWHERE C 10/25/2017 KAUSHIK SHEN MD Ot R10.11 RIGHT UPPER QUADRANT PAIN 10/25/2017 KAUSHIK SHEN MD Ot K27.9 PEPTIC ULC, SITE UNSP, UNSP AC OR CHR 10/25/2017 KAUSHIK SHEN MD, Ot Z01.818 ENCOUNTER FOR OTHER PREPROCEDURAL EXAMIN 10/25/2017 KAUSHIK SHEN MD Ot R10.11 RIGHT UPPER QUADRANT PAIN 10/25/2017 KAUSHIK SHEN MD Ot K82.8 OTHER SPECIFIED DISEASES OF GALLBLADDER 10/25/2017 KAUSHIK SHEN MD, Ot Z01.812 ENCOUNTER FOR PREPROCEDURAL LABORATORY E 10/25/2017 KAUSHIK SHEN MD, Ot Z11.2 ENCOUNTER FOR SCREENING FOR OTHER BACTER 10/25/2017 LISSET GRANADO RESIDENCE DIRECTOR Ot E78.4 OTHER HYPERLIPIDEMIA 10/25/2017 LISSET GRANADO RESIDENCE DIRECTOR Ot I10 ESSENTIAL (PRIMARY) HYPERTENSION 10/25/2017 LISSET GRANADO RESIDENCE DIRECTOR Ot 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 10/25/2017 LISSET GRANADO RESIDENCE DIRECTOR Ot I34.0 NONRHEUMATIC MITRAL (VALVE) INSUFFICIENC 10/25/2017 LISSET GRANADO RESIDENCE DIRECTOR Ot I35.1 NONRHEUMATIC AORTIC (VALVE) INSUFFICIENC 10/25/2017 LISSET GRANADO RESIDENCE DIRECTOR Ot I65.23 OCCLUSION AND STENOSIS OF BILATERAL COBB 10/25/2017 SHEA PAULSON DO Ot M25.512 PAIN IN LEFT SHOULDER 10/25/2017 SCOTTY MEANS APRN Ot E87.1 HYPO-OSMOLALITY AND HYPONATREMIA 10/25/2017 SCOTTY MEANS APRN Ot J43.9 EMPHYSEMA, UNSPECIFIED 10/25/2017 SCOTTY MEANS APRN Ot R63.4 ABNORMAL WEIGHT LOSS 10/25/2017 RICHIE IRVIN, THOMAS Fairchild Ot E11.9 TYPE 2 DIABETES MELLITUS WITHOUT COMPLIC 10/25/2017 THOAMS QUIROZ MD Ot E78.00 PURE HYPERCHOLESTEROLEMIA, UNSPECIFIED 10/25/2017 THOMAS QUIROZ MD Ot G47.9 SLEEP DISORDER, UNSPECIFIED 10/25/2017 THOMAS QUIROZ MD Ot I10 ESSENTIAL (PRIMARY) HYPERTENSION 10/25/2017 THOMAS QUIROZ MD Ot J44.9 CHRONIC OBSTRUCTIVE PULMONARY DISEASE, U 10/25/2017 THOMAS QUIROZ MD Ot K21.9 GASTRO-ESOPHAGEAL REFLUX DISEASE WITHOUT 10/25/2017 THOMAS QUIROZ MD Ot R05 COUGH 10/25/2017 THOMAS QUIROZ MD Ot R07.81 PLEURODYNIA 10/25/2017 THOMAS QUIROZ MD Ot R51 HEADACHE 10/25/2017 THOMAS QUIROZ MD Ot Z79.52 HALF-WAY (CURRENT) USE OF SYSTEMIC STER 10/25/2017 THOMAS QUIROZ MD Ot Z85.46 PERSONAL HISTORY OF MALIGNANT NEOPLASM O 10/25/2017 THOMAS QUIROZ MD, Ot Z87.19 PERSONAL HISTORY OF OTHER DISEASES OF TH 10/25/2017 THOMAS QUIROZ MD, Ot Z87.442 PERSONAL HISTORY OF URINARY CALCULI 10/25/2017 THOMAS QUIROZ MD, Ot Z87.891 PERSONAL HISTORY OF NICOTINE DEPENDENCE 10/25/2017 THOMAS QUIROZ MD, Ot Z88.5 ALLERGY STATUS TO NARCOTIC AGENT STATUS 10/25/2017 THOMAS QUIROZ MD Ot Z88.8 ALLERGY STATUS TO OTH DRUG/MEDS/BIOL SUB 10/25/2017 THOMAS QUIROZ MD Ot Z96.612 PRESENCE OF LEFT ARTIFICIAL SHOULDER ANYI 10/25/2017 THOMAS QUIROZ MD Ot Z96.642 PRESENCE OF LEFT ARTIFICIAL HIP JOINT 10/25/2017 THOMAS QUIROZ MD Ot Z96.652 PRESENCE OF LEFT ARTIFICIAL KNEE JOINT 10/28/2017 THOMAS QUIROZ MD Ot E11.9 TYPE 2 DIABETES MELLITUS WITHOUT COMPLIC 10/28/2017 THOMAS QUIROZ MD Ot E78.00 PURE HYPERCHOLESTEROLEMIA, UNSPECIFIED 10/28/2017 THOMAS QUIROZ MD Ot G47.9 SLEEP DISORDER, UNSPECIFIED 10/28/2017 THOMAS QUIROZ MD Ot I10 ESSENTIAL (PRIMARY) HYPERTENSION 10/28/2017 THOMAS QUIROZ MD, Ot J44.9 CHRONIC OBSTRUCTIVE PULMONARY DISEASE, U 10/28/2017 THOMAS QUIROZ MD Ot K21.9 GASTRO-ESOPHAGEAL REFLUX DISEASE WITHOUT 10/28/2017 THOMAS QUIROZ MD, Ot R05 COUGH 10/28/2017 THOMAS QUIROZ MD Ot R07.81 PLEURODYNIA 10/28/2017 THOMAS QUIROZ MD Ot R51 HEADACHE 10/28/2017 THOMAS QUIROZ MD, Ot Z79.52 DIRECTOR OF SPEECH PATHOLOGY (CURRENT) USE OF SYSTEMIC STER 10/28/2017 THOMAS QUIROZ MD Ot Z85.46 PERSONAL HISTORY OF MALIGNANT NEOPLASM O 10/28/2017 THOMAS QUIROZ MD, Ot Z87.19 PERSONAL HISTORY OF OTHER DISEASES OF TH 10/28/2017 THOMAS QUIROZ MD, Ot Z87.442 PERSONAL HISTORY OF URINARY CALCULI 10/28/2017 THOMAS QUIROZ MD, Ot Z87.891 PERSONAL HISTORY OF NICOTINE DEPENDENCE 10/28/2017 THOMAS QUIROZ MD, Ot Z88.5 ALLERGY STATUS TO NARCOTIC AGENT STATUS 10/28/2017 THOMAS QUIROZ MD, Ot Z88.8 ALLERGY STATUS TO OTH DRUG/MEDS/BIOL SUB 10/28/2017 THOMAS QUIROZ MD Ot Z96.612 PRESENCE OF LEFT ARTIFICIAL SHOULDER ANYI 10/28/2017 THOMAS QUIROZ MD Ot Z96.642 PRESENCE OF LEFT ARTIFICIAL HIP JOINT 10/28/2017 THOMAS QUIROZ MD, Ot Z96.652 PRESENCE OF LEFT ARTIFICIAL KNEE JOINT 10/28/2017 SHEA PAULSON DO Ot M25.512 PAIN IN LEFT SHOULDER 10/28/2017 SHEA PAULSON DO Ot M25.512 PAIN IN LEFT SHOULDER 10/29/2017 SHEA PAULSON DO Ot M25.512 PAIN IN LEFT SHOULDER 10/31/2017 THOMAS QUIROZ MD Ot E11.9 TYPE 2 DIABETES MELLITUS WITHOUT COMPLIC 10/31/2017 THOMAS QUIROZ MD Ot E78.00 PURE HYPERCHOLESTEROLEMIA, UNSPECIFIED 10/31/2017 THOMAS QUIROZ MD, Ot G47.9 SLEEP DISORDER, UNSPECIFIED 10/31/2017 THOMAS QUIROZ MD Ot I10 ESSENTIAL (PRIMARY) HYPERTENSION 10/31/2017 THOMAS QUIROZ MD Ot J44.9 CHRONIC OBSTRUCTIVE PULMONARY DISEASE, U 10/31/2017 THOMAS QUIROZ MD, Ot K21.9 GASTRO-ESOPHAGEAL REFLUX DISEASE WITHOUT 10/31/2017 THOMAS QUIROZ MD, Ot R05 COUGH 10/31/2017 THOMAS QUIROZ MD, Ot R07.81 PLEURODYNIA 10/31/2017 THOMAS QUIROZ MD, Ot R51 HEADACHE 10/31/2017 THOMAS QUIROZ MD, Ot Z79.52 HALF-WAY (CURRENT) USE OF SYSTEMIC STER 10/31/2017 THOMAS QUIROZ MD, Ot Z85.46 PERSONAL HISTORY OF MALIGNANT NEOPLASM O 10/31/2017 THOMAS QUIROZ MD, Ot Z87.19 PERSONAL HISTORY OF OTHER DISEASES OF TH 10/31/2017 THOMAS QUIROZ MD, Ot Z87.442 PERSONAL HISTORY OF URINARY CALCULI 10/31/2017 THOMAS QUIROZ MD, Ot Z87.891 PERSONAL HISTORY OF NICOTINE DEPENDENCE 10/31/2017 THOMAS QUIROZ MD, Ot Z88.5 ALLERGY STATUS TO NARCOTIC AGENT STATUS 10/31/2017 THOMAS QUIROZ MD, Ot Z88.8 ALLERGY STATUS TO OTH DRUG/MEDS/BIOL SUB 10/31/2017 THOMAS QUIROZ MD, Ot Z96.612 PRESENCE OF LEFT ARTIFICIAL SHOULDER ANYI 10/31/2017 THOMAS QUIROZ MD, Ot Z96.642 PRESENCE OF LEFT ARTIFICIAL HIP JOINT 10/31/2017 THOMAS QUIROZ MD, Ot Z96.652 PRESENCE OF LEFT ARTIFICIAL KNEE [...] 5-8.5 Urine-Protein Negative Negative Urine-RBC 0-2/HPF Urine-Specific [place] 1.010 1.000-1.030 Urine-WBC 0-2/HPF Urobilinogen 0.2 0.2-1.0 [...] 5-8.5 Urine-Protein 1+ Negative Urine-RBC 0-2/HPF Urine-Specific [place] >=1.030 1.000-1.030 Urine-WBC 0-2/HPF Urobilinogen 1.0 E.U./dL [...] Status Pt. Type Provider Facility Loc./Unit Complaint [id number] 10/04/2017 15:25:00 10/28/2017 14:55:00 DIS Outpatient SHEA PAULSON DO [facility] REHAB L ROTATOR CUFF REPAIR [id number] 10/25/2017 12:44:00 10/25/2017 15:50:00 DIS Outpatient RICHIE IRVIN, THOMAS Fairchild [facility] ER COUGH [id number] 10/23/2017 11:33:00 10/23/2017 23:59:59 CLS Outpatient SCOTTY MEANS APRN [facility] RAD COPD [id number] 10/20/2017 20:37:00 10/20/2017 23:52:00 DIS Emergency BERNADALBERTO CASTELLON [facility] ER THROWING UP,COUGH,POSS BRONCHITIS [id number] 12/07/2016 21:22:00 12/07/2016 23:53:00 DIS Emergency ELPIDIO BELLE [facility] ER FALL/KNEE AND HIP PAIN /R SHOULDER PAIN [id number] 12/04/2016 21:13:00 12/04/2016 22:33:00 DIS Emergency ELPIDIO BELLE [facility] ER RT HIP AND KNEE PAIN [id number] 11/01/2016 21:56:00 11/01/2016 22:50:00 DIS Emergency SLOANE LOUIS DO [facility] ER LOWER BACK/LT HIP PAIN [id number] 05/10/2016 10:14:00 05/10/2016 23:59:59 CLS Outpatient LISSET GRANADO [facility] CARD CAD,CAROTIUD ARTERIAL DISEASE [id number] 02/22/2016 20:10:00 02/22/2016 23:05:00 DIS Emergency ELPIDIO BELLE [facility] ER FALL [id number] 11/08/2015 14:22:00 11/08/2015 16:53:00 DIS Emergency THOMAS QUIROZ MD [facility] ER CHEST PAIN [id number] 10/09/2015 23:29:00 10/10/2015 00:52:00 DIS Emergency THOMAS QUIROZ MD [facility] ER RT HIP PAIN [id number] 08/22/2015 00:52:00 08/22/2015 01:36:00 DIS Emergency MALOU ROONEY MD [facility] ER BACK PAIN [id number] 06/11/2015 00:02:00 06/11/2015 00:50:00 DIS Emergency ALEX LAU MD [facility] ER L PINKY PAIN [id number] 05/01/2015 20:27:00 05/01/2015 21:39:00 DIS Emergency BROOKS DIA APRN [facility] ER VOMITING BLOOD POST GALL BLADDER REMOVAL [id number] 04/28/2015 06:00:00 04/28/2015 23:59:59 CLS Outpatient KAUSHIK SHEN MD [facility] SDC BILARY DYSKINESIA [id number] 04/25/2015 07:50:00 04/25/2015 23:59:59 CLS Outpatient KAUSHIK SHEN MD [facility] PREOP BILIARY DYSKINESIA [id number] 03/28/2015 09:39:00 03/28/2015 23:59:59 CLS Outpatient KAUSHIK SHEN MD [facility] CARD RUQ PAIN [id number] 03/17/2015 06:36:00 03/17/2015 23:59:59 CLS Outpatient KAUSHIK SHEN MD [facility] RAD RIGHT UPPER QUADRANT PAIN [id number] 03/16/2015 09:39:00 03/16/2015 12:10:00 DIS Outpatient KAUSHIK SHEN MD [facility] SDC PUD [id number] 03/14/2015 05:48:00 03/14/2015 23:59:59 CLS Outpatient KAUSHIK SHEN MD [facility] PREOP EGD [id number] 01/06/2015 01:36:00 01/06/2015 23:59:59 CLS Preadmit DIPESH JEFFERY MD [facility] ONC [id number] 01/05/2015 09:41:00 01/05/2015 00:01:00 DIS Outpatient DIPESH JEFFERY MD [facility] ONC [id number] 11/16/2014 07:05:00 11/16/2014 14:40:00 DIS Outpatient ARNOLD IRVIN FACC, ANDERSON FALCON CCDS [facility] CATH ANGINA CAD FATIGUE [id number] 11/02/2014 14:18:00 11/02/2014 00:01:00 DIS Outpatient DIPESH JEFFERY MD [facility] ONC [id number] 07/29/2014 12:26:00 07/29/2014 23:59:59 CLS Outpatient GARY GIBBS APRN [facility] RAD COUGH,INHALANTS OF TOXIN [id number] 07/12/2014 12:03:00 07/12/2014 23:59:59 CLS Outpatient SAV CHAVES MD [facility] CARD PROSTATE CA [id number] 06/30/2014 14:12:00 06/30/2014 23:59:59 CLS Outpatient WILLIS NAZARIO DO [facility] RAD COPD,CAD,HYPERTENSION, HYPERLIPIDEMIA [id number] 03/15/2014 14:15:00 03/15/2014 23:59:59 CLS Outpatient JOSEPH LAU MD [facility] RT COPD [id number] 03/12/2014 13:58:00 03/12/2014 23:59:59 CLS Outpatient JOSEPH LAU MD [facility] CARD POSITIVE D-DIMER [id number] 03/11/2014 19:56:00 03/11/2014 22:29:00 DIS Emergency TITO COLE DO [facility] ER CHEST PAIN [id number] 03/10/2014 15:27:00 03/10/2014 23:59:59 CLS Outpatient JOSEPH LAU MD [facility] RAD COLD [id number] 12/30/2013 15:02:00 12/30/2013 23:59:59 CLS Outpatient JOSEPH LAU MD [facility] RAD NAUSEA,ABD BACK PAIN [id number] 12/20/2013 05:40:00 12/20/2013 06:44:00 DIS Emergency TITO COLE DO [facility] ER WOUND CHECK [id number] 12/19/2013 13:41:00 12/19/2013 14:56:00 DIS Emergency ELPIDIO BELLE [facility] ER R HAND SWELLING [id number] 08/19/2013 07:56:00 08/19/2013 23:59:59 CLS Outpatient KAUSHIK SHEN MD [facility] SDC VOMITING;WEIGHT LOSS [id number] 08/13/2013 10:18:00 08/13/2013 23:59:59 CLS Outpatient KAUSHIK SHEN MD [facility] PREOP VOMITING;WEIGHT LOSS [id number] 12/26/2012 19:22:00 12/26/2012 21:32:00 DIS Emergency SLOANE LOUIS DO [facility] ER FALL [id number] 12/18/2012 09:20:00 12/18/2012 23:59:59 CLS Outpatient RADHA LAU [facility] CARD AORTIC REGURGITATION [id number] 10/23/2012 11:24:00 10/23/2012 14:05:00 DIS Emergency RICHIE IRVIN, THOMAS Gurinder [facility] ER N/V [id number] 10/01/2012 13:35:00 10/01/2012 15:47:00 DIS Emergency IASTU MCDONALD DO [facility] ER FALL/LEFT HIP PAIN [id number] 06/15/2014 07:00:00 Document Registration [id number] 06/11/2014 09:42:00 Document Registration [id number] 07/19/2012 18:45:00 Document Registration [id number] 04/16/2017 12:54:00 04/16/2017 23:59:00 DIS Outpatient BenSaschau [id number] 01/22/2017 12:30:00 01/22/2017 16:05:00 [id number] 11/25/2016 13:24:00 11/25/2016 16:59:00 [id number] 11/23/2016 15:49:00 11/23/2016 23:59:00 DIS Outpatient ContrerasSaschau [id number] 11/08/2016 15:52:00 11/08/2016 23:59:00 DIS Outpatient BenSaschau [id number] 11/01/2016 19:06:00 11/01/2016 23:59:00 DIS Outpatient BenSaschau [id number] 09/08/2016 15:18:00 09/08/2016 20:00:00 DIS Outpatient Mirta [facility] ER [id number] 03/27/2016 17:45:00 03/27/2016 23:59:00 DIS Outpatient ContrerasSaschau [id number] 04/11/2017 15:58:21 Document Registration [id number] 02/20/2017 08:19:10 Document Registration [id number] 09/08/2016 17:05:49 Document Registration [id number] 03/27/2016 17:45:00 Document Registration [id number] 01/05/2015 09:41:27 ACT Document Registration
[2017-11-17] MEDS ORDERED: CEPH-507 PO (18:26)
--- NOTE | 2017-11-17 18:26 | ED Upper Extremity ---
General Chief Complaint: Upper Extremity Stated Complaint: INJURED RIGHT HAND Nursing Triage Note: ARRIVED VIA AMB TO ROOM 05, STATES HIS BAD KNEE WENT OUT FROM UNDER HIM TODAY CAUSING HIM TO FALL INTO WALL HURTING LEFT HAND. STATES HE HAS HYDROCODONE THAT IS HELPING WITH THE PAIN. Nursing Sepsis Screen: No Definite Risk Source: patient Exam Limitations: no limitations History of Present Illness Date Seen by Provider: Nov 17, 2017 Time Seen by Provider: 18:22 Initial Comments I just went To ER with right hand pain. He states he has a bad knee. While getting up from bed this morning about 7:30 AM his knee gave out as it does sometimes and he stuck his hand out to brace against the wall. Rather than extending his hand as he expected it would do he actually flexed the hand. Complaints of pain to the knuckles. There is a break in the skin with an eschar but it's unknown whether this was from an injury this morning or from something he did yesterday And just didn't notice this is a very superficial tear. He states that they do have dogs at home which could've possibly scratched him or bitten him while he was playing with him and he just didn't know. He does have a history of prior injury to the left hand and has some metal fragments still in his hand. Onset: just prior to arrival Severity: moderate Pain/Injury Location: right hand Method of Injury: fell Modifying Factors: Worse With Movement Allergies and Home Medications Allergies Coded Allergies: morphine (Verified Allergy, Severe, HIVES, N/V, 04/25/15) fentanyl (Verified Allergy, Mild, RESTLESS, 12/07/16) Home Medications Allopurinol 300 Mg Tablet, 150 MG PO DAILY, (Reported) TAKE 1/2 OF (300MG) TAB Atorvastatin Calcium 40 Mg Tablet, 40 MG PO HS, (Reported) Budesonide/Formoterol Fumarate 10.2 Gm Hfa.aer.ad, 2 PUFF IH BID, (Reported) Buspirone Hcl 10 Mg Tablet, 10 MG PO HS, (Reported) Cephalexin 500 Mg Capsule, 500 MG PO Q6H Prescribed by: BROOKS DIA on 11/17/171825 Cetirizine HCl 10 Mg Tablet, 10 MG PO DAILY, (Reported) Cyclobenzaprine HCl 10 Mg Tablet, 10 MG PO Q8H PRN for SPASMS Prescribed by: ELPIDIO ROMAN on 12/04/162222 Ezetimibe 10 Mg Tablet, 1 TAB PO DAILY, (Reported) Fenofibrate Nanocrystallized 145 Mg Tablet, 145 MG PO DAILY, (Reported) Hydrochlorothiazide 25 Mg Tablet, 25 MG PO DAILY, (Reported) Hydrocodone Bit/Acetaminophen 1 Tab Tab, 1 EACH PO Q4H PRN for PAIN-MODERATE Prescribed by: MALOU ROONEY on 10/20/172337 Ketoprofen 75 Mg Capsule, 75 MG PO TID PRN for pain Prescribed by: ELPIDIO ROMAN on 12/04/162222 Lisinopril 40 Mg Tablet, 40 MG PO DAILY, (Reported) Metoprolol Succinate 100 Mg Tab.er.24h, 100 MG PO DAILY, (Reported) Ondansetron 4 Mg Tab.rapdis, 4 MG PO Q6H PRN for NAUSEA/VOMITING Prescribed by: MALOU ROONEY on 10/20/172337 Pantoprazole Sodium 40 Mg Tablet.dr, 40 MG PO DAILY, (Reported) Prednisone 20 Mg Tab, 40 MG PO DAILY Prescribed by: ELPIDIO ROMAN on 12/04/162222 Sucralfate 1 Gm Tablet, 1 TAB PO QID PRN for ABDOMINAL PAIN, (Reported) Tamsulosin Hcl 0.4 Mg Cap, 0.4 MG PO DAILY, (Reported) Tiotropium [place] 18 Mcg Cap.w.dev, 2 PUFF IH DAILY, (Reported) Tramadol HCl 50 Mg Tablet, 50 MG PO Q4H Prescribed by: SLOANE LOUIS on 11/01/16 2241 Patient Home Medication List Home Medication List Reviewed: Yes Constitutional: see HPI; No chills EENTM: see HPI Respiratory: no symptoms reported Cardiovascular: no symptoms reported Genitourinary: no symptoms reported Musculoskeletal: see HPI, other (there is some swelling and erythema over the dorsal aspect of the hand at the fourth and fifth MCP joint with a very superficial skin tear that has an eschar over it.) Skin: see HPI Psychiatric/Neurological: No Symptoms Reported Past Orsbjnx-Mjzdel-Ohlqji Hx Patient Social History Alcohol Use: Denies Use Recreational Drug Use: No Smoking Status: Former Smoker Type Used: Cigarettes Former Smoker, Quit: Nov 06, 1990 2nd Hand Smoke Exposure: No Recent Foreign Travel: No Contact w/Someone Who Travel: No Recent Infectious Disease Expo: No Recent Hopitalizations: No Immunizations Up To Date Tetanus Booster (TDap): Less than 5yrs Date of Pneumonia Vaccine: Feb 06, 2015 Date of Influenza Vaccine: Jan 24, 2016 Seasonal Allergies Seasonal Allergies: Yes Past Medical History Surgeries: Yes (CARPAL TUNNEL BILAT, BACK X3, R SHOULDER REPLACEMEN, L HIP REPLACE, L TKR) Abdominal, Cardiac, Joint Replacement, Orthopedic, Transurethral Resection Respiratory: Yes Asthma, COPD Currently Using CPAP: No Currently Using BIPAP: No Cardiac: Yes (MITRAL VALVE PROLAPSE) High Cholesterol, Hypertension, Valvular Heart Disease Neurological: No Reproductive Disorders: Yes Sexually Transmitted Disease: No HIV/AIDS: No Genitourinary: Yes Prostate Problems, Kidney Stones Gastrointestinal: Yes (FATTY LIVER) Gastroesophageal Reflux, Liver Disease/Jaundice, Polyps, Esophagitis, Hiatal Hernia Musculoskeletal: Yes (chronic hip and knee pain) Degenerate Disk Disease, Arthritis, Back Injury, Chronic Back Pain, Gout Endocrine: Yes Diabetes, Non-Insulin dep HEENT: No Loss of Vision: Bilateral Hearing Impairment: Denies Cancer: Yes Prostate Psychosocial: No Integumentary: No Blood Disorders: No Adverse Reaction/Blood Tranf: No (HAS HAD BLOOD WITH NO REACTION) Family Medical History No Pertinent Family Hx, Other Conditions/Hx Physical Exam Vital Signs Vital Signs - First Documented 11/17/17 17:25 Temp 98.0 Pulse 98 Resp 16 B/P (MAP) 146/107 (120) Pulse Ox 97 O2 Delivery Room Air Capillary Refill : Less Than 3 Seconds Height, Weight, BMI Height: 5'9.00" Weight: 186lbs. 1.6oz. 84.014382ai; 32.48 BMI Method:Stated General Appearance: WD/WN, no apparent distress HEENT: PERRL/EOMI, normal ENT inspection Neck: non-tender, full range of motion Cardiovascular: regular rate, rhythm, no murmur Respiratory: no respiratory distress, no accessory muscle use Shoulder: normal inspection, non-tender Elbow/Forearm: normal inspection, non-tender, Left Wrist: Yes normal inspection, Yes non-tender Hand: Left, limited ROM, swelling (over dorsal aspect left hand 1-3 mcp joints. ) Neurologic/Psychiatric: alert, normal mood/affect, oriented x 3 Skin: normal color, warm/dry Progress/Results/Core Measures Results/Orders My Orders Orders - BROOKS DIA APRN Hand, Left, 3 Views (11/17/17 17:58) Vital Signs/I&O 11/17/17 17:25 Temp 98.0 Pulse 98 Resp 16 B/P (MAP) 146/107 (120) Pulse Ox 97 O2 Delivery Room Air Blood Pressure Mean: 120 Departure Impression Primary Impression: Hand sprain Additional Impression: Soft tissue infection Disposition: 01 HOME, SELF-CARE Condition: Stable Departure-Patient Inst. Decision time for Depature: 18:24 Referrals: NO,LOCAL PHYSICIAN (PCP/Family) Primary Care Physician Patient Instructions: Contusion (DC) Add. Discharge Instructions: 1. Follow-up with your doctor within 1 week for recheck. Return to ER for any significant increase in the swelling in the hand. Take antibiotics as directed All discharge instructions reviewed with patient and/or family. Voiced understanding. Scripts Amoxicillin/Potassium Clav (Augmentin 875-125 Tablet) 1 Each Tablet 1 EACH PO BID, #10 TAB Prov: BROOKS DIA APRN 11/17/17 Copy Copies To 1: MAGGI CRUZ MD, PETER J APRN Nov 17, 2017 18:26
--- NOTE | 2017-11-17 18:40 | Diagnostic Imaging Report ---
INDICATION: Hand pain. EXAMINATION: Left hand at 6:08 p.m. Three views were obtained. COMPARISON: There are no prior studies available for comparison. FINDINGS: There is no fracture, dislocation or acute bony abnormality evident. The osseous structures are demineralized and there is degenerative disease involving the DIP, PIP and MCP joints of each digit. There is also at least moderate degenerative disease of the triscaphe joint. There are a few minute radiopaque foreign bodies in the soft tissues adjacent to the fifth metacarpal base and the neck of the middle phalanx of the mid fifth digit. IMPRESSION: 1. There is no evidence for an acute bony abnormality. 2. There is degenerative disease involving the hand and wrist. Dictated by: Dictated on workstation # [id number]
[2017-11-17] MEDS ORDERED: AMOX-358 PO (18:45)
[2017-11-17 19:00] VITALS: BP 146/107
[2017-11-17] MEDS ORDERED: AUGMENTIN 875 MG TAB (AMOXICILLIN/CLAVULANATE) PO SCH (19:00)
== END 2017-11-17 19:03 | disposition home or self-care (01) ==
LOC: EDUNIT# 17:10 → ER 17:12
DX: S63.91XA Sprain of unspecified part of right wrist and hand, initial encounter (principal); L08.9 Local infection of the skin and subcutaneous tissue, unspecified; J44.9 Chronic obstructive pulmonary disease, unspecified; E78.00 Pure hypercholesterolemia, unspecified; I10 Essential (primary) hypertension; K21.9 Gastro-esophageal reflux disease without esophagitis; E11.9 Type 2 diabetes mellitus without complications; Z85.46 Personal history of malignant neoplasm of prostate; Z87.19 Personal history of other diseases of the digestive system; Z86.010 Personal history of colon polyps; Z87.442 Personal history of urinary calculi; Z88.5 Allergy status to narcotic agent; Z88.8 Allergy status to other drugs, medicaments and biological substances; Z79.51 Long term (current) use of inhaled steroids; Z79.52 Long term (current) use of systemic steroids; Z87.891 Personal history of nicotine dependence; Z96.611 Presence of right artificial shoulder joint; Z96.641 Presence of right artificial hip joint; Z96.652 Presence of left artificial knee joint; Z90.79 Acquired absence of other genital organ(s); W06.XXXA Fall from bed, initial encounter; W22.01XA Walked into wall, initial encounter
CPT/HCPCS: 73130

== ENCOUNTER → 2017-12-10 | Outpatient (CLI) | payer MEDICARE, MEDICAID ==
[~2017-12-10] MED LIST changes: +ALLO300T2 PO; -AMLO10TA2; -AMLO10TA2 PO; +AMLO10TA6 PO; +AMOX-358 PO; +BUSP10TA95 PO; +CEPH-507 PO; +DRON2.5C10 PO; +HYDR-4196 PO; +HYDR-4226 PO; -HYDR-753 PO; -ISOS30TA3; -OXYC-197 PO; +OXYC1TAB87 PO; +PRED10TA22 PO; +TAMS0.4C2 PO; +TIOT4MIS2 IH
[2017-12-10 10:31] LABS: BASOPHILS % (AUTO) 1 % (0-10); EOSINOPHILS # (AUTO) 0.1 10^3/uL (0.0-0.3); EOSINOPHILS % (AUTO) 1 % (0-10); HEMATOCRIT 40 % (40-54); HEMOGLOBIN 13.8 G/DL (13.3-17.7); LYMPHOCYTES # (AUTO) 1.3 X 10^3 (1.0-4.0); LYMPHOCYTES % (AUTO) 24 % (12-44); MEAN CORPUSCULAR HEMOGLOBIN 30 PG (25-34); MEAN CORPUSCULAR HGB CONC 34 G/DL (32-36); MEAN CORPUSCULAR VOLUME 87 FL (80-99); MEAN PLATELET VOLUME 9.3 FL (7.4-10.4); MONOCYTES # (AUTO) 0.6 X 10^3 (0.0-1.0); MONOCYTES % (AUTO) 11 % (0-12); NEUTROPHILS # (AUTO) 3.5 X 10^3 (1.8-7.8); NEUTROPHILS % (AUTO) 63 % (42-75); PLATELET COUNT 293 10^3/uL (130-400); RED BLOOD COUNT 4.63 10^6/uL (4.35-5.85); RED CELL DISTRIBUTION WIDTH 12.9 % (10.0-14.5); WHITE BLOOD COUNT 5.6 10^3/uL (4.3-11.0)
== END ==
LOC: LAB 10:20
PROVIDERS: ATTEND Nurse Practitioner Family
DX: J44.9 Chronic obstructive pulmonary disease, unspecified (principal)
CPT/HCPCS: 36415; 85025

== ENCOUNTER 2017-12-11 05:40 | Outpatient (CLI) | payer MEDICARE, MEDICAID ==
[~2017-12-11] VITALS: Ht 175.3 cm; Wt 84.4 kg
[~2017-12-11 05:40] MED LIST changes: -ALLO300T2 PO; -BUSP10TA95 PO; -DRON2.5C10 PO; -HYDR-4226 PO; -PRED10TA22 PO; -TAMS0.4C2 PO; -TIOT4MIS2 IH
[2017-12-11] MEDS ORDERED: ALLO300T2 PO (11:19)
[2017-12-11] MEDS ORDERED: DRON2.5C10 PO (11:19)
[2017-12-11] MEDS ORDERED: PRED10TA22 PO (11:26)
[2017-12-11] MEDS ORDERED: ATOR40TA70 PO (13:28)
[2017-12-11] MEDS ORDERED: TAMS0.4C2 PO (13:28)
[2017-12-11] MEDS ORDERED: TIOT4MIS2 IH (13:28)
[2017-12-11] MEDS ORDERED: DEXL60CA PO (13:29)
[2017-12-11] MEDS ORDERED: MONT10TA24 PO (13:29)
[2017-12-11] MEDS ORDERED: BUSP10TA95 PO (13:29)
[2017-12-11] MEDS ORDERED: AMIT50TA3 PO (13:29)
[2017-12-12] MEDS ORDERED: HYDR-4226 PO (07:13)
== END 2017-12-11 13:30 | disposition home or self-care (01) ==
LOC: PREOP 05:40
PROVIDERS: ATTEND Internal Medicine Critical Care Medicine
DX: Z01.818 Encounter for other preprocedural examination (principal)

== ENCOUNTER 2017-12-12 06:40 | Day surgery (SDC) | payer MEDICARE, MEDICAID ==
[~2017-12-12] VITALS: Ht 175.3 cm; Wt 84.4 kg
[~2017-12-12 06:40] MED LIST changes: +ALLO300T2 PO; +BUSP10TA95 PO; +DRON2.5C10 PO; +PRED10TA22 PO; +TAMS0.4C2 PO; +TIOT4MIS2 IH
[2017-12-12] MEDS ORDERED: LIDOCAINE JELLY 2% (XYLOCAINE) 30 ML TUBE TOP ONE (06:41)
[2017-12-12] MEDS ORDERED: LIDOCAINE PF 1% 2 ML AMP IJ ONE (06:41)
[2017-12-12] MEDS ORDERED: LIDOCAINE PF 2% 5 ML (XYLOCAINE) VIAL INJ ONE (06:41)
[2017-12-12] MEDS ORDERED: NS IV 500 ML 500 ML IV PRN (06:51)
--- OUTSIDE RECORDS SUMMARY | 2017-12-12 06:51 | XMS REPORT | Continuity of Care Document ---
Author Author [facility] Organization [facility] Address Unknown Phone Unavailable Allergies Active Description Code Type Severity Reaction Onset Reported/Identified Relationship to Patient Clinical Status Yes FENTANYL FENTANYL MODERATE Yes MORPHINE MORPHINE MODERATE Yes FENTANYL MODERATE DERMATOLOGICAL - TANESHA Yes MORPHINE MODERATE DERMATOLOGICAL - TANESHA Yes morphine [id number] Drug Allergy Severe N/A 07/19/2012 Yes fentanyl [id number] Drug Allergy Unknown N/A 08/19/2013 Yes morphine [id number] Drug Allergy Severe HIVES, N/V 12/07/2016 Yes fentanyl [id number] Drug Allergy Mild RESTLESS 12/07/2016 Medications Medication [...] NOS 07/21/2012 Ot 414.01 CORONARY ATHEROSCLEROSIS OF [place] CORON 07/21/2012 Ot 424.1 AORTIC VALVE DISORDER [...] QUIROZ MD Ot 414.01 CORONARY ATHEROSCLEROSIS OF [place] CORON 10/23/2012 THOMAS QUIROZ MD Ot 493.20 [...] WILLIS Damian Ot 496 09/04/2014 GARY GIBBS SENIOR WEB ANALYST Ot 786.2 09/04/2014 JOSE D IRVIN, DIPESH Wall Ot 185 09/17/2014 DIPESH JEFFERY MD E Ot 185 09/28/2014 ANDIE IRVIN, SAV A Ot 185 10/01/2014 GARY GIBBS SENIOR WEB ANALYST Ot 786.2 11/02/2014 JOSE D IRVIN, DIPESH [...] Ot K81.1 CHRONIC CHOLECYSTITIS 05/01/2015 BROOKS DIA SENIOR WEB ANALYST Ot G89.18 OTHER ACUTE POSTPROCEDURAL PAIN 05/01/2015 BROOKS DIA SENIOR WEB ANALYST Ot R11.2 NAUSEA WITH VOMITING, UNSPECIFIED 05/01/2015 BROOKS DIA SENIOR WEB ANALYST Ot Z90.49 ACQUIRED ABSENCE OF OTHER SPECIFIED [...] IMMUNIZATION 02/22/2016 ELPIDIO BELLE Ot Z79.899 OTHER CORRECTION (CURRENT) DRUG THERAPY 02/22/2016 ELPIDIO BELLE Ot [...] IMMUNIZATION 03/07/2016 ELPIDIO BELLE Ot Z79.899 OTHER HOSPICE PATIENT CARE SECRETARY (CURRENT) DRUG THERAPY 03/07/2016 ELPIDIO BELLE Ot Z87.891 PERSONAL HISTORY OF NICOTINE DEPENDENCE 03/07/2016 ELPIDIO BELLE Ot Z96.642 PRESENCE OF LEFT ARTIFICIAL HIP JOINT 06/04/2016 LISSET GRANADO Ot E78.4 OTHER HYPERLIPIDEMIA 06/04/2016 LISSET GRANADOP Ot I10 ESSENTIAL (PRIMARY) HYPERTENSION 06/04/2016 LISSET GRANADO Ot I25.10 ATHSCL HEART DISEASE OF [place] CORONARY 06/04/2016 LISSET GRANADO Ot I34.0 NONRHEUMATIC MITRAL (VALVE) INSUFFICIENC 06/04/2016 BAIMA, LISSET L WHEEL LACER AND TRUER Ot I35.1 NONRHEUMATIC AORTIC (VALVE) INSUFFICIENC 06/04/2016 LISSET GRANADO WHEEL LACER AND TRUER Ot I65.23 OCCLUSION AND STENOSIS OF BILATERAL [place] 06/07/2016 LISSET GRANADO WHEEL LACER AND TRUER Ot E78.4 OTHER HYPERLIPIDEMIA 06/07/2016 LISSET GRANADO WHEEL LACER AND TRUER Ot I10 ESSENTIAL (PRIMARY) HYPERTENSION 06/07/2016 LISSET GRANADO WHEEL LACER AND TRUER Ot I25.10 ATHSCL HEART DISEASE OF [place] CORONARY 06/07/2016 LISSET GRANADO WHEEL LACER AND TRUER Ot I34.0 NONRHEUMATIC MITRAL (VALVE) INSUFFICIENC 06/07/2016 LISSET GRANADO WHEEL LACER AND TRUER Ot I35.1 NONRHEUMATIC AORTIC (VALVE) INSUFFICIENC 06/07/2016 LISSET GRANADO WHEEL LACER AND TRUER Ot I65.23 OCCLUSION AND STENOSIS OF BILATERAL [...] SPECIFIED DISEASES OF GALLBLADDER 11/01/2016 KAUSHIK SHEN MD Ot Z01.812 ENCOUNTER FOR PREPROCEDURAL LABORATORY E 11/01/2016 KAUSHIK SHEN MD Ot Z11.2 ENCOUNTER FOR SCREENING FOR OTHER BACTER 11/01/2016 LISSET GRANADO WHEEL LACER AND TRUER Ot E78.4 OTHER HYPERLIPIDEMIA 11/01/2016 LISSET GRANADO WHEEL LACER AND TRUER Ot I10 ESSENTIAL (PRIMARY) HYPERTENSION 11/01/2016 LISSET GRANADO WHEEL LACER AND TRUER Ot I25.10 ATHSCL HEART DISEASE OF [place] CORONARY 11/01/2016 LISSET GRANADO WHEEL LACER AND TRUER Ot I34.0 NONRHEUMATIC MITRAL (VALVE) INSUFFICIENC 11/01/2016 LISSET GRANADO WHEEL LACER AND TRUER Ot I35.1 NONRHEUMATIC AORTIC (VALVE) INSUFFICIENC 11/01/2016 LISSET GRANADO WHEEL LACER AND TRUER Ot I65.23 OCCLUSION AND STENOSIS OF BILATERAL [...] FALL (ON)(FROM) INCLINE, INITIAL ENCOUNT 12/13/2016 ELPIDIO EBLLE Ot Y92.89 [facility] OF OCCURRENCE OF 12/13/2016 [...] SCREENING FOR OTHER BACTER 10/25/2017 LISSET GRANADO WHEEL LACER AND TRUER Ot E78.4 OTHER HYPERLIPIDEMIA 10/25/2017 LISSET GRANADO WHEEL LACER AND TRUER Ot I10 ESSENTIAL (PRIMARY) HYPERTENSION 10/25/2017 LISSET GRANADO WHEEL LACER AND TRUER Ot I25.10 ATHSCL HEART DISEASE OF [place] CORONARY 10/25/2017 LISSET GRANADO WHEEL LACER AND TRUER Ot I34.0 NONRHEUMATIC MITRAL (VALVE) INSUFFICIENC 10/25/2017 LISSET GRANADO WHEEL LACER AND TRUER Ot I35.1 NONRHEUMATIC AORTIC (VALVE) INSUFFICIENC 10/25/2017 LISSET GRANADO WHEEL LACER AND TRUER Ot I65.23 OCCLUSION AND STENOSIS OF BILATERAL COBB 10/25/2017 SHEA PAULSON DO Ot M25.512 PAIN IN LEFT SHOULDER 10/25/2017 SCOTTY MEANS APRN Ot E87.1 HYPO-OSMOLALITY AND HYPONATREMIA 10/25/2017 SCOTTY MEANS APRN Ot J43.9 EMPHYSEMA, UNSPECIFIED 10/25/2017 SCOTTY MEANS APRN Ot R63.4 ABNORMAL WEIGHT LOSS 10/25/2017 RICHIE IRVIN, THOMAS Fairchild Ot E11.9 TYPE 2 DIABETES MELLITUS WITHOUT COMPLIC 10/25/2017 THOMAS QUIROZ MD Ot E78.00 PURE HYPERCHOLESTEROLEMIA, UNSPECIFIED 10/25/2017 THOMAS QUIROZ MD Ot G47.9 SLEEP DISORDER, UNSPECIFIED 10/25/2017 THOMAS QUIROZ MD Ot I10 ESSENTIAL (PRIMARY) HYPERTENSION 10/25/2017 THOMAS QUIROZ MD Ot J44.9 CHRONIC OBSTRUCTIVE PULMONARY DISEASE, U 10/25/2017 THOMAS QUIROZ MD Ot K21.9 GASTRO-ESOPHAGEAL REFLUX DISEASE WITHOUT 10/25/2017 THOMAS QUIROZ MD Ot R05 COUGH 10/25/2017 HTOMAS QUIROZ MD Ot R07.81 PLEURODYNIA 10/25/2017 THOMAS QUIROZ MD Ot R51 HEADACHE 10/25/2017 THOMAS QUIROZ MD Ot Z79.52 CORRECTION (CURRENT) USE OF SYSTEMIC STER 10/25/2017 THOMAS [...] HEADACHE 10/28/2017 THOMAS QUIROZ MD, Ot Z79.52 HOSPICE PATIENT CARE SECRETARY (CURRENT) USE OF SYSTEMIC STER 10/28/2017 THOMAS [...] HEADACHE 10/31/2017 THOMAS QUIROZ MD, Ot Z79.52 CORRECTION (CURRENT) USE OF SYSTEMIC STER 10/31/2017 THOMAS [...] LEFT ARTIFICIAL SHOULDER ANYI 10/31/2017 THOMAS QUIROZ MD Ot Z96.642 PRESENCE OF LEFT ARTIFICIAL HIP JOINT 10/31/2017 THOMAS QUIROZ MD, Ot Z96.652 PRESENCE OF LEFT ARTIFICIAL KNEE JOINT 11/23/2017 Ot E11.9 TYPE 2 DIABETES MELLITUS WITHOUT COMPLIC 11/23/2017 Ot E78.00 PURE HYPERCHOLESTEROLEMIA, UNSPECIFIED 11/23/2017 Ot I10 ESSENTIAL ( PRIMARY) HYPERTENSION 11/23/2017 Ot J44.9 CHRONIC OBSTRUCTIVE PULMONARY DISEASE, U 11/23/2017 Ot K21.9 GASTRO- ESOPHAGEAL REFLUX DISEASE WITHOUT 11/23/2017 Ot L08.9 LOCAL INFECTION OF THE SKIN AND SUBCUTAN 11/23/2017 Ot M79.641 PAIN IN RIGHT HAND 11/23/2017 Ot S63.91XA SPRAIN OF UNSP PART OF RIGHT WRIST AND H 11/23/2017 Ot W06.XXXA FALL FROM BED, INITIAL ENCOUNTER 11/23/2017 Ot W22.01XA WALKED INTO WALL, INITIAL ENCOUNTER 11/23/2017 Ot Z79.51 HOSPICE PATIENT CARE SECRETARY ( CURRENT) USE OF INHALED STERO 11/23/2017 Ot Z79.52 HOSPICE PATIENT CARE SECRETARY ( CURRENT) USE OF SYSTEMIC STER 11/23/2017 Ot Z85.46 PERSONAL HISTORY OF MALIGNANT NEOPLASM O 11/23/2017 Ot Z86.010 PERSONAL HISTORY OF COLONIC POLYPS 11/23/2017 Ot Z87.19 PERSONAL HISTORY OF OTHER DISEASES OF TH 11/23/2017 Ot Z87.442 PERSONAL HISTORY OF URINARY CALCULI 11/23/2017 Ot Z87.891 PERSONAL HISTORY OF NICOTINE DEPENDENCE 11/23/2017 Ot Z88.5 ALLERGY STATUS TO NARCOTIC AGENT STATUS 11/23/2017 Ot Z88.8 ALLERGY STATUS TO OTH DRUG/MEDS/BIOL SUB 11/23/2017 Ot 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( 11/23/2017 Ot 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 11/23/2017 Ot Z96.641 PRESENCE OF RIGHT ARTIFICIAL HIP JOINT 11/23/2017 Ot Z96.652 PRESENCE OF LEFT ARTIFICIAL KNEE [...] 5-8.5 Urine-Protein Negative Negative Urine-RBC 0-2/HPF Urine-Specific [place] 1.010 1.000-1.030 Urine-WBC 0-2/HPF Urobilinogen 0.2 0.2-1.0 [...] 5-8.5 Urine-Protein 1+ Negative Urine-RBC 0-2/HPF Urine-Specific [place] >=1.030 1.000-1.030 Urine-WBC 0-2/HPF Urobilinogen 1.0 E.U./dL [...] Status Pt. Type Provider Facility Loc./Unit Complaint [id number] 10/04/2017 15:25:00 10/28/2017 14:55:00 DIS Outpatient SHEA PAULSON DO [facility] REHAB L ROTATOR CUFF REPAIR [id number] 10/25/2017 12:44:00 10/25/2017 15:50:00 DIS Outpatient THOMAS QUIROZ MD [facility] ER COUGH [id number] 10/23/2017 11:33:00 10/23/2017 23:59:59 CLS Outpatient SCOTTY MEANS APRN [facility] RAD COPD [id number] 10/20/2017 20:37:00 10/20/2017 23:52:00 DIS Emergency ADALBERTO WINKLER [facility] ER THROWING UP,COUGH,POSS BRONCHITIS [id number] 12/07/2016 21:22:00 12/07/2016 23:53:00 DIS Emergency ELPIDIO BELLE [facility] ER FALL/KNEE AND HIP PAIN /R SHOULDER PAIN [id number] 12/04/2016 21:13:00 12/04/2016 22:33:00 DIS Emergency ELPIDIO BELLE [facility] ER RT HIP AND KNEE PAIN [id number] 11/01/2016 21:56:00 11/01/2016 22:50:00 DIS Emergency SLOANE LOUIS DO [facility] ER LOWER BACK/LT HIP PAIN [id number] 05/10/2016 10:14:00 05/10/2016 23:59:59 CLS Outpatient LISSET GRANADO [facility] CARD CAD,CAROTIUD ARTERIAL DISEASE [id number] 02/22/2016 20:10:00 02/22/2016 23:05:00 DIS Emergency ELPIDIO BELLE [facility] ER FALL [id number] 11/08/2015 14:22:00 11/08/2015 16:53:00 DIS Emergency RICHIE IRVIN, THOMAS Fairchild [facility] ER CHEST PAIN [id number] 10/09/2015 23:29:00 10/10/2015 00:52:00 DIS Emergency RICHIE IRVIN, THOMAS Fairchild [facility] ER RT HIP PAIN [id number] 08/22/2015 00:52:00 08/22/2015 01:36:00 DIS Emergency MALOU ROONEY MD [facility] ER BACK PAIN [id number] 06/11/2015 00:02:00 06/11/2015 00:50:00 DIS Emergency ALEX LAU MD [facility] ER L PINKY PAIN [id number] 05/01/2015 20:27:00 05/01/2015 21:39:00 DIS Emergency BROOKS DIA APRN [facility] ER VOMITING BLOOD POST GALL BLADDER REMOVAL [id number] 04/28/2015 06:00:00 04/28/2015 23:59:59 CLS Outpatient KAUSHIK SHEN MD [facility] SDC BILARY DYSKINESIA [id number] 04/25/2015 07:50:00 04/25/2015 23:59:59 CLS Outpatient KAUSHIK SHEN MD [facility] PREOP BILIARY DYSKINESIA [id number] 03/28/2015 09:39:00 03/28/2015 23:59:59 CLS Outpatient KAUSHIK SHEN MD [facility] CARD RUQ PAIN [id number] 03/17/2015 06:36:00 03/17/2015 23:59:59 CLS Outpatient KAUSHIK SHEN MD [facility] RAD RIGHT UPPER QUADRANT PAIN [id number] 03/16/2015 09:39:00 03/16/2015 12:10:00 DIS Outpatient KAUSHIK SHEN MD [facility] SDC PUD [id number] 03/14/2015 05:48:00 03/14/2015 23:59:59 CLS Outpatient KAUSHIK SHEN MD [facility] PREOP EGD [id number] 01/06/2015 01:36:00 01/06/2015 23:59:59 CLS Preadmit DIPESH JEFFERY MD [facility] ONC [id number] 01/05/2015 09:41:00 01/05/2015 00:01:00 DIS Outpatient DIPESH JEFFERY MD [facility] ONC [id number] 11/16/2014 07:05:00 11/16/2014 14:40:00 DIS Outpatient ARNOLD IRVIN FACCANDERSON FACP CCDS [facility] CATH ANGINA CAD FATIGUE [id number] 11/02/2014 14:18:00 11/02/2014 00:01:00 DIS Outpatient DIPESH JEFFERY MD [facility] ONC [id number] 07/29/2014 12:26:00 07/29/2014 23:59:59 CLS Outpatient GARY GIBBS APRN [facility] RAD COUGH,INHALANTS OF TOXIN [id number] 07/12/2014 12:03:00 07/12/2014 23:59:59 CLS Outpatient SAV CHAVES MD [facility] CARD PROSTATE [place] [id number] 06/30/2014 14:12:00 06/30/2014 23:59:59 CLS Outpatient WILLIS NAZARIO DO [facility] RAD COPD,CAD,HYPERTENSION, HYPERLIPIDEMIA [id number] 03/15/2014 14:15:00 03/15/2014 23:59:59 CLS Outpatient JOSEPH LAU MD [facility] RT COPD [id number] 03/12/2014 13:58:00 03/12/2014 23:59:59 CLS Outpatient JOSEPH LAU MD [facility] CARD POSITIVE D-DIMER [id number] 03/11/2014 19:56:00 03/11/2014 22:29:00 DIS Emergency TITO COLE DO [facility] ER CHEST PAIN [id number] 03/10/2014 15:27:00 03/10/2014 23:59:59 CLS Outpatient JOSEPH LAU MD [facility] RAD COLD [id number] 12/30/2013 15:02:00 12/30/2013 23:59:59 CLS Outpatient JOSEPH LAU MD [facility] RAD NAUSEA,ABD BACK PAIN [id number] 12/20/2013 05:40:00 12/20/2013 06:44:00 DIS Emergency TITO COLE DO [facility] ER WOUND CHECK [id number] 12/19/2013 13:41:00 12/19/2013 14:56:00 DIS Emergency ELPIDIO BELLE [facility] ER R HAND SWELLING [id number] 08/19/2013 07:56:00 08/19/2013 23:59:59 CLS Outpatient KAUSHIK SHEN MD [facility] SDC VOMITING;WEIGHT LOSS [id number] 08/13/2013 10:18:00 08/13/2013 23:59:59 CLS Outpatient KAUSHIK SHEN MD [facility] PREOP VOMITING;WEIGHT LOSS [id number] 12/26/2012 19:22:00 12/26/2012 21:32:00 DIS Emergency HERIBERTO BARON SLOANE K [facility] ER FALL [id number] 12/18/2012 09:20:00 12/18/2012 23:59:59 CLS Outpatient RADHA LAU [facility] CARD AORTIC REGURGITATION [id number] 10/23/2012 11:24:00 10/23/2012 14:05:00 DIS Emergency THOMAS QUIROZ MD [facility] ER N/V [id number] 10/01/2012 13:35:00 10/01/2012 15:47:00 DIS Emergency ISATU MCDONALD DO [facility] ER FALL/LEFT HIP PAIN [id number] 11/17/2017 17:12:00 Document Registration [id number] 06/15/2014 07:00:00 Document Registration [id number] 06/11/2014 09:42:00 Document Registration [id number] 07/19/2012 18:45:00 Document Registration [id number] 04/16/2017 12:54:00 04/16/2017 23:59:00 DIS Outpatient James Contreras [id number] 01/22/2017 12:30:00 01/22/2017 16:05:00 [id number] 11/25/2016 13:24:00 11/25/2016 16:59:00 [id number] 11/23/2016 15:49:00 11/23/2016 23:59:00 DIS Outpatient Sascha Contrerasu [id number] 11/08/2016 15:52:00 11/08/2016 23:59:00 DIS Outpatient Sascha Contrerasu [id number] 11/01/2016 19:06:00 11/01/2016 23:59:00 DIS Outpatient Sascha Contrerasu [id number] 09/08/2016 15:18:00 09/08/2016 20:00:00 [id number] 03/27/2016 17:45:00 03/27/2016 23:59:00 DIS Outpatient Sascha Contrerasu [id number] 04/11/2017 15:58:21 Document Registration [id number] 02/20/2017 08:19:10 Document Registration [id number] 09/08/2016 17:05:49 Document Registration [id number] 03/27/2016 17:45:00 Document Registration [id number] 01/05/2015 09:41:27 ACT Document Registration
[2017-12-12] MEDS ORDERED: fentaNYL INJECTION 100 MCG/2 ML AMP IVP ONE (07:00)
[2017-12-12] MEDS ORDERED: MIDAZOLAM 2 MG/2 ML (VERSED) VIAL IVP ONE (07:00)
[2017-12-12] MEDS ORDERED: HYDR-4226 PO (07:13)
[2017-12-12 07:15] VITALS: BP 130/89
[2017-12-12] MEDS ORDERED: MIDAZOLAM 2 MG/2 ML (VERSED) VIAL ONE ×4 (07:21)
--- NOTE | 2017-12-12 07:22 | Progress Note-Pre Operative ---
Pre-Operative Progress Note H&P Reviewed The H&P was reviewed, patient examined and no changes noted. Time Seen by Provider: 07:21 Date H&P Reviewed: Dec 12, 2017 Time H&P Reviewed: 07:21 Pre-Operative Diagnosis: chronic cough WILLIS NAZARIO DO Dec 12, 2017 07:22
--- NOTE | 2017-12-12 07:22 | Pre-Op Note & Conscious Sedat ---
Pre-Operative Progress Note H&P Reviewed The H&P was reviewed, patient examined and no changes noted. Date H&P Reviewed: Dec 12, 2017 Time H&P Reviewed: 07:22 Conscious Sedation Pre-Proced Time Reviewed: 07:21 ASA Class: 3 Airway Mallampati Classification: ([employer] [place] appropriate class) I. II. III, IV Lungs Heart ASA score ASA 1: a normal healthy patient ASA 2: a patient with a mild systemic disease (mid diabetes, controlled hypertension, obesity ASA 3: a patient with a severe systemic disease that limits activity (angina , COPD, prior Myocardial infarction) ASA 4: a patient with an incapacitating disease that is a constant threat to life (CHF, renal failure) ASA 5: a moribund patient not expected to survive 24 hrs. (ruptured aneurysm) ASA 6: a declared brain patient whose organs are being harvested. For emergent operations, add the letter E after the classification Grade 3 Sedation Plan: Analgesia, Amnesia, Plan communicated to team members, Discussed options with patient/fam, Discussed risks with patient/fam Note The patient is an appropriate candidate to undergo the planned procedure, sedation, and anesthesia. The patient immediately re-assessed prior to indication. WILLIS NAZARIO DO Dec 12, 2017 07:22
--- NOTE | 2017-12-12 07:55 | Pulmonary Procedures ---
Pulmonary Procedures Date of Procedure Date of Service: Dec 12, 2017 Bronch Bronchoscopy with bronchoalveolar lavage (BAL), transbronchial washes Preop DX chronic cough Postop DX: no endobronchial mass, no mucous production, no signs of bleeding Complications: none After informed consent obtained and formal time out pt was sedated using Versed. Bronchoscope was advanced through the right nare and vocal cords. 1% lidocaine was used to anesthetize vocal cords, epiglottis, humberto, and left/ right main stem bronchus. An anatomical tour was undertaken down to the segmental bronchi bilaterally. No endobronchial lesions noted. From the RML a bronchoalveolar lavage (BAL), transbronchial washes were obtained. Pt tolerated procedure well. No complications noted. Stat CXR is pending. WILLIS NAZARIO DO Dec 12, 2017 07:54
[2017-12-12 08:15] VITALS: BP 134/64
[2017-12-12 08:45] VITALS: BP 109/77
--- NOTE | 2017-12-12 08:52 | Diagnostic Imaging Report ---
INDICATION: Post bronchoscopy. Frontal chest obtained at 8:26 a.m. is compared to 10/25/2017. FINDINGS: Heart is normal in size. There is some infiltrate or atelectasis in the right lung base. There is no pneumothorax or pleural fluid post bronchoscopy. IMPRESSION: Mild infiltrate versus atelectasis in the right lung base. No pneumothorax or pleural fluid post bronchoscopy. Dictated by: Dictated on workstation # [id number]
[2017-12-12 09:03] VITALS: BP 109/77
== END 2017-12-12 09:03 | disposition home or self-care (01) ==
LOC: ENDO 06:40
PROVIDERS: ATTEND Internal Medicine Critical Care Medicine
DX: R05 Cough (principal); J44.9 Chronic obstructive pulmonary disease, unspecified; J45.909 Unspecified asthma, uncomplicated; G47.33 Obstructive sleep apnea (adult) (pediatric); Z87.891 Personal history of nicotine dependence; Z79.51 Long term (current) use of inhaled steroids
CPT/HCPCS: 71045; 87070; 87101; 87116; 87205

== ENCOUNTER → 2017-12-16 | Outpatient (CLI) | payer MEDICARE, MEDICAID ==
[~2017-12-16] MED LIST changes: +HYDR-4226 PO
--- NOTE | 2017-12-16 10:55 | Diagnostic Imaging Report ---
INDICATION: Cough PA and lateral views of the chest are obtained with comparison made to study of 12/12/2017. There is air trapping, bilaterally. Overall heart size and pulmonary vascularity are within normal limits. There is no evidence of pneumothorax or significant pleural fluid. There is local increased density projected over the left suprahilar region. This may be due to superimposition of osseous structures. This does have a slightly different appearance when compared to the previous study IMPRESSION: Air trapping consistent with emphysema. Focal density in the upper left hemithorax is likely artifactual, however, apical lordotic view is recommended to exclude the possibility of developing parenchymal pulmonary nodule. Dictated by: Dictated on workstation # [id number]
== END ==
LOC: RAD 10:19
PROVIDERS: ATTEND Nurse Practitioner Family
DX: J98.4 Other disorders of lung (principal); J44.9 Chronic obstructive pulmonary disease, unspecified; J30.9 Allergic rhinitis, unspecified
CPT/HCPCS: 71046

== ENCOUNTER → 2017-12-19 | Outpatient (CLI) | payer MEDICARE, MEDICAID ==
--- NOTE | 2017-12-19 18:41 | Diagnostic Imaging Report ---
INDICATION: Asthma and COPD. TIME OF EXAM: 2:31 PM Correlation is made with prior study from 12/16/2017. AP and lateral views as well as apical lordotic views were obtained. FINDINGS: The heart size is normal. Slight nodularity at the level of the left hilum is seen on the apical lordotic view, indeterminate. There is also a tiny nodule in the mid left lung most likely representing a granuloma. The right lung is clear. No effusion or pneumothorax is seen. IMPRESSION: There is some residual nodularity in the left perihilar region. CT chest could be performed for further evaluation. Dictated by: Dictated on workstation # [id number]
== END ==
LOC: RAD 13:58
PROVIDERS: ATTEND Nurse Practitioner Family
DX: J44.9 Chronic obstructive pulmonary disease, unspecified (principal)
CPT/HCPCS: 71047

== ENCOUNTER → 2018-01-15 | Outpatient (CLI) | payer MEDICARE, MEDICAID ==
[~2018-01-15] MED LIST changes: +IOHEXOL 350 MG/ML 100 ML (OMNIPAQUE 350) VIAL IV ONE; +NS 250 ML (IVPB) BAG IV ONE
[2018-01-15 14:32] LABS: CREATININE SERUM 1.51 MG/DL (0.60-1.30)
--- NOTE | 2018-01-15 16:47 | Diagnostic Imaging Report ---
PROCEDURE: CT chest with contrast only. TECHNIQUE: Multiple contiguous axial images were obtained through the chest after administration of intravenous contrast. INDICATION: History of COPD and asthma, progressive shortness of breath over the past month. COMPARISON: 10/23/2017. FINDINGS: Mediastinal and subcarinal calcifications are present. No pathologically enlarged mediastinal and/or hilar lymph nodes. Visualized portion of the thyroid gland appearing unremarkable. The heart size is unremarkable. Thoracic aorta is normal in contour. The lung matias are clear of infiltrate. A few scattered calcified granulomas are present. No significant pleural effusion. Likely mild diffuse hepatic steatosis. Cholecystectomy clips. Moderately advanced degenerative changes about the thoracic spine. Partial visualization of the lumbar fusion hardware. IMPRESSION: Relatively stable appearance about the chest. No acute abnormality. Dictated by: Dictated on workstation # [id number]
== END ==
LOC: RAD 13:59
PROVIDERS: ATTEND Nurse Practitioner Family
DX: J44.9 Chronic obstructive pulmonary disease, unspecified (principal); R91.1 Solitary pulmonary nodule
CPT/HCPCS: 36415; 71260; 82565; 84520

== ENCOUNTER → 2018-03-07 | Outpatient (CLI) | payer MEDICARE, MEDICAID ==
[~2018-03-07] MED LIST changes: -IOHEXOL 350 MG/ML 100 ML (OMNIPAQUE 350) VIAL IV ONE; -NS 250 ML (IVPB) BAG IV ONE; +REGADENOSON 0.4 MG/5 ML SYR (LEXISCAN) IV ONE
[2018-03-07] MEDS: CATHETER FLUSH 10 ML SYR IV PRN ×2 (07:33→08:52)
[2018-03-07 08:50] VITALS: BP 127/81
--- NOTE | 2018-03-10 22:22 | STRESS TEST ---
DATE OF SERVICE: 03/07/2018 RESTING AND POST REGADENOSON TECHNETIUM-99M TETROFOSMIN SPECT CT IMAGING ORDERING PHYSICIAN: Yudi Zambrano APRN OTHER PHYSICIAN: ANDERSON BARRETT MD, MAGUE, FACP, FACC CLINICAL DIAGNOSIS: Shortness of breath and hypertension. Baseline images were carried out after injection of 10.93 mCi of technetium-99m Tetrofosmin. This was followed by 0.4 mg regadenoson and 32.5 mCi technetium-99m Tetrofosmin for stress imaging. The electrocardiogram showed sinus rhythm at baseline and did not change significantly with the regadenoson infusion. The patient tolerated the procedure well. Review of images at rest and following stress does not indicate any significant perfusion defects consistent with any significant myocardial ischemia or infarction. Gated images showed normal global left ventricular systolic function and normal regional wall motion. Left ventricular ejection fraction is calculated to be 80%. Left ventricular end diastolic volume is 50 mL. TID is absent (1.05). CONCLUSIONS: 1. No evidence of any significant myocardial ischemia or infarction is seen. 2. Normal regional wall motion. 3. Normal global left ventricular systolic function with a calculated ejection fraction of 80%. Job ID: [id number] DocumentID: [id number] Dictated Date: 03/10/2018 16:45:27 Jewelry Cutter Date: 03/10/2018 22:21:50 Dictated By: ANDERSON BARRETT MD, MAGUE, FACP, FACC,
== END ==
LOC: CARD 06:57
PROVIDERS: ATTEND Nurse Practitioner Family
DX: I10 Essential (primary) hypertension (principal); E78.5 Hyperlipidemia, unspecified; R06.09 Other forms of dyspnea; G47.33 Obstructive sleep apnea (adult) (pediatric)
CPT/HCPCS: 78452; 93017

== ENCOUNTER 2018-03-29 08:39 | Emergency (ER) | payer MEDICARE, MEDICAID ==
[~2018-03-29] VITALS: Ht 175.3 cm; Wt 92.1 kg
[~2018-03-29 08:39] MED LIST changes: -REGADENOSON 0.4 MG/5 ML SYR (LEXISCAN) IV ONE
[2018-03-29 09:46] LABS: BASOPHILS # (AUTO) 0.1 10^3/uL (0.0-0.1); BASOPHILS % (AUTO) 0 % (0-10); EOSINOPHILS # (AUTO) 0.2 10^3/uL (0.0-0.3); EOSINOPHILS % (AUTO) 1 % (0-10); HEMATOCRIT 31 % (40-54); HEMOGLOBIN 10.8 G/DL (13.3-17.7); LYMPHOCYTES # (AUTO) 0.8 X 10^3 (1.0-4.0); LYMPHOCYTES % (AUTO) 6 % (12-44); MEAN CORPUSCULAR HEMOGLOBIN 29 PG (25-34); MEAN CORPUSCULAR HGB CONC 35 G/DL (32-36); MEAN CORPUSCULAR VOLUME 84 FL (80-99); MEAN PLATELET VOLUME 9.1 FL (7.4-10.4); MONOCYTES # (AUTO) 1.3 X 10^3 (0.0-1.0); MONOCYTES % (AUTO) 10 % (0-12); NEUTROPHILS # (AUTO) 10.5 X 10^3 (1.8-7.8); NEUTROPHILS % (AUTO) 82 % (42-75); PLATELET COUNT 624 10^3/uL (130-400); RED BLOOD COUNT 3.72 10^6/uL (4.35-5.85); WHITE BLOOD COUNT 12.8 10^3/uL (4.3-11.0)
[2018-03-29 09:58] LABS: ALBUMIN 3.6 GM/DL (3.2-4.5); BILIRUBIN,TOTAL 0.7 MG/DL (0.1-1.0); CALCIUM 10.1 MG/DL (8.5-10.1); CREATININE SERUM 1.78 MG/DL (0.60-1.30); POTASSIUM 4.4 MMOL/L (3.6-5.0); TOTAL PROTEIN 6.8 GM/DL (6.4-8.2)
--- NOTE | 2018-03-29 10:14 | Diagnostic Imaging Report ---
PROCEDURE: CT head without contrast. TECHNIQUE: Multiple contiguous axial images were obtained through the brain without the use of intravenous contrast. INDICATION: Fall and confusion. COMPARISON: Comparison is made with a prior CT study from February 22, 2016. FINDINGS: There is no CT evidence of acute intracranial hemorrhage. There is no abnormal extra-axial fluid collection. There is no intracranial mass effect or shift. There is no hydrocephalus. The basilar cisterns are patent. There is no territorial loss of vasquez-white differentiation. The mastoid air cells appear clear. The visualized paranasal sinuses are clear. Orbital contents unremarkable. No calvarial fracture is evident. IMPRESSION: No CT evidence of an acute intracranial abnormality. Dictated by: Dictated on workstation # [id number]
[2018-03-29 10:33] LABS: EOSINOPHILS % (MANUAL) 1 %; LYMPHOCYTES % (MANUAL) 11 %; MONOCYTES % (MANUAL) 9 %; NEUTROPHILS % (MANUAL) 79 %; PLATELET ESTIMATE INCREASED; RBC MORPH NORMAL
[2018-03-29] MEDS ORDERED: LIDOCAINE UROJET 2% GEL 10 ML PKG ONE (10:41)
[2018-03-29 11:00] LABS: BILIRUBIN,URINE NEGATIVE (NEGATIVE); CLARITY,URINE CLEAR; COLOR,URINE YELLOW; GLUCOSE, URINE (UA) NEGATIVE (NEGATIVE); KETONES,URINE NEGATIVE (NEGATIVE); LEUKOCYTE ESTERASE ,URINE NEGATIVE (NEGATIVE); NITRITE,URINE NEGATIVE (NEGATIVE); PH,URINE 6.5 (5-9); PROTEIN,URINE NEGATIVE (NEGATIVE); UROBILINOGEN,URINE NORMAL (NORMAL)
[2018-03-29] MEDS ORDERED: LIDOCAINE UROJET 2% GEL 10 ML PKG TOP ONE (11:00)
[2018-03-29] MEDS ORDERED: NS IV 500 ML 500 ML ONE (11:05)
[2018-03-29 11:15] LABS: BACTERIA,URINE NEGATIVE /HPF
[2018-03-29] MEDS ORDERED: NS IV 500 ML 500 ML IV SCH (11:15)
--- NOTE | 2018-03-29 11:39 | Diagnostic Imaging Report ---
INDICATION: Fall pain FINDINGS: Total knee arthroplasty performed. The hardware appeared intact. Residual osseous structures showed no fracture. Lateral radiograph suggest a knee joint effusion. IMPRESSION: Probable joint effusion with no acute bone or hardware pathology apparent. Dictated by: Dictated on workstation # [id number]
--- NOTE | 2018-03-29 11:46 | Diagnostic Imaging Report ---
Indication: Fall increasing confusion, pain Findings: Bilateral total hips replaced. Femoral heads components oriented in the acetabular component. There is postsurgical changes at the level of the symphysis as well as to the lumbar spine. No acute abnormality identified. Two-view right hip showed no fracture. IMPRESSION: Postsurgical changes otherwise negative. Dictated by: Dictated on workstation # [id number]
[2018-03-29] MEDS ORDERED: NS IV 500 ML 500 ML IV ONE (12:11)
--- NOTE | 2018-03-29 12:11 | ED Fall/Injury ---
General Chief Complaint: Trauma-Non Activation Stated Complaint: FALL Nursing Triage Note: PT BROUGHT IN BY EMS FROM HOME WITH COMPLAINT OF FALL AROUND 0750. PT DOES NOT KNOW IF HE HIT HIS HEAD OR NOT. PT HAS HAD INCREASING CONFUSION OVER THE LAST TWO DAYS. PT WAS STARTED ON BACTRIM ON TUEDAY AT [facility] FOR POSSIBLE WOUND INFECTION. Source: patient, family Exam Limitations: no limitations History of Present Illness Date Seen by Provider: Mar 29, 2018 Time Seen by Provider: 11:00 Initial Comments Here by EMS with report of fall this morning. Does complain of some right hip and right knee pain. He is postop 11 days for knee surgery. Seen a few days ago at [facility] due to mild fever and concerns of infection. Started on Bactrim at that time. Denies loss of consciousness. Unsure if he hit his head. Patient is anticoagulated. Occurred: this morning Severity: mild Injuries/Pain Location: pelvis, lower extremity Context: unknown Loss of Consciousness: no loss of consciousness Modifying Factors: Improves With Immobilization; Worse With Movement Associated Symptoms (Fall): No Abdominal Pain, No Chest Pain; Confusion; No Headache, No Muscle Spasms, No Neck Pain, No Shortness of Air Allergies and Home Medications Allergies Coded Allergies: morphine (Verified Allergy, Severe, HIVES, N/V, 04/25/15) fentanyl (Verified Allergy, Mild, RESTLESS, 12/07/16) Home Medications Allopurinol 300 Mg Tablet, 150 MG PO DAILY, (Reported) take 1/2 of 300mg tab Amitriptyline HCl 50 Mg Tablet, 50 MG PO HS, (Reported) Amlodipine Besylate 10 Mg Tablet, 10 MG PO DAILY, (Reported) Atorvastatin Calcium 40 Mg Tablet, 40 MG PO HS, (Reported) Budesonide/Formoterol Fumarate 10.2 Gm Hfa.aer.ad, 2 PUFF IH BID, (Reported) Buspirone HCl 10 Mg Tablet, 5-10 MG PO BID, (Reported) TAKE 1/2 OF 10MG TAB IN AM TAKE 1 WHOLE TAB AT HS Cetirizine HCl 10 Mg Tablet, 10 MG PO DAILY, (Reported) Dexlansoprazole 60 Mg , 60 MG PO DAILY, (Reported) Dronabinol 2.5 Mg Capsule, 2.5 MG PO BID, (Reported) Ezetimibe 10 Mg Tablet, 10 MG PO DAILY, (Reported) Fenofibrate Nanocrystallized 145 Mg Tablet, 145 MG PO DAILY, (Reported) Hydrochlorothiazide 25 Mg Tablet, 25 MG PO DAILY, (Reported) Hydrocodone/Acetaminophen 1 Each Tablet, 1 EACH PO Q4H, (Reported) Metoprolol Succinate 100 Mg Tab.er.24h, 100 MG PO DAILY, (Reported) Montelukast Sodium 10 Mg Tablet, 10 MG PO HS, (Reported) Tamsulosin HCl 0.4 Mg Cap.er.24h, 0.4 MG PO DAILY, (Reported) Tiotropium [place] 4 Gm Mist.inhal, 2 PUFF IH DAILY, (Reported) Patient Home Medication List Home Medication List Reviewed: Yes Review of Systems Review of Systems Constitutional: see HPI; No chills; fever (few days ago) Eyes: No Symptoms Reported Ears, Nose, Mouth, Throat: no symptoms reported Respiratory: No short of breath, No wheezing Cardiovascular: No chest pain, No palpitations Gastrointestinal: No abdominal pain, No nausea, No vomiting Genitourinary: see HPI, hesitancy, pain, other (not urinating well) Musculoskeletal: see HPI, joint pain, joint swelling, muscle pain, muscle stiffness Skin: No change in color, No lesions Psychiatric/Neurological: See HPI; Denies Headache; Weakness All Other Systems Reviewed Negative Unless Noted: Yes Past Uaftjka-Lzdiwg-Btppuw Hx Past Med/Social Hx: Reviewed Nursing Past Med/Soc Hx Patient Social History Alcohol Use: Denies Use Recreational Drug Use: No Smoking Status: Former Smoker Type Used: Cigarettes Former Smoker, Quit: Nov 06, 1990 2nd Hand Smoke Exposure: No Recent Foreign Travel: No Contact w/Someone Who Travel: No Recent Infectious Disease Expo: No Recent Hopitalizations: No Immunizations Up To Date Tetanus Booster (TDap): Less than 5yrs Date of Pneumonia Vaccine: Feb 06, 2015 Date of Influenza Vaccine: Jan 24, 2016 Seasonal Allergies Seasonal Allergies: Yes Past Medical History Surgeries: Yes (CARPAL TUNNEL BILAT, BACK X3, R SHOULDER REPLACEMEN, L HIP REPLACE, L TKR) Abdominal, Appendectomy, Cardiac, Gallbladder, Joint Replacement, Orthopedic, Transurethral Resection Respiratory: Yes (dyspnea) Sleep Apnea, COPD Currently Using CPAP: Yes Currently Using BIPAP: No Cardiac: Yes (MITRAL VALVE PROLAPSE) High Cholesterol, Hypertension, Valvular Heart Disease Neurological: No Reproductive Disorders: No Sexually Transmitted Disease: No HIV/AIDS: No Genitourinary: Yes Prostate Problems, Kidney Stones Gastrointestinal: Yes (FATTY LIVER) Gastroesophageal Reflux, Polyps, Esophagitis, Hiatal Hernia Musculoskeletal: Yes (chronic hip and knee pain) Degenerate Disk Disease, Arthritis, Back Injury, Chronic Back Pain, Gout Endocrine: No Diabetes, Non-Insulin dep HEENT: No Loss of Vision: Bilateral Hearing Impairment: Denies Cancer: Yes Prostate What Type of Treatment Did You: Radiation, Surgical Intervention Psychosocial: No Integumentary: No Blood Disorders: No Adverse Reaction/Blood Tranf: No (HAS HAD BLOOD WITH NO REACTION) Family Medical History Reviewed Nursing Family Hx No Pertinent Family Hx, Other Conditions/Hx Physical Exam Vital Signs Vital Signs - First Documented 03/29/18 09:19 Temp 98.2 Pulse 98 Resp 20 B/P (MAP) 135/111 (119) Pulse Ox 8 O2 Delivery Room Air Capillary Refill : Less Than 3 Seconds Height, Weight, BMI Height: 5'9.00" Weight: 203lbs. 0.0oz. [id number]; 27.5 BMI Method:Stated General Appearance: WD/WN, no apparent distress HEENT: PERRL/EOMI, pharynx normal Neck: full range of motion, supple Cardiovascular: regular rate, rhythm, no murmur Respiratory: lungs clear, normal breath sounds Gastrointestinal: non tender, soft Back: normal inspection, no CVA tenderness, no vertebral tenderness Extremities: pelvis stable, other (postoperative wound to the right knee is clean, dry and intact without redness. Mild swelling noted of the knee. Mild pain to the right hip.) Neurologic/Psychiatric: alert, oriented x 3 Skin: normal color, warm/dry [place] Coma Score Best Eye Response: (4) Open Spontaneously Best Verbal Response: (5) Oriented Best Motor Response: (6) Obeys Commands Progress/Results/Core Measures Results/Orders Lab Results Laboratory Tests Test 03/29/18 09:30 03/29/18 09:58 03/29/18 10:52 Range/Units White Blood Count 12.8 H 4.3-11.0 10^3/uL Red Blood Count 3.72 L 4.35-5.85 10^6/uL Hemoglobin 10.8 L 13.3-17.7 G/DL Hematocrit 31 L 40-54 % Mean Corpuscular Volume 84 80-99 FL Mean Corpuscular Hemoglobin 29 25-34 PG Mean Corpuscular Hemoglobin Concent 35 32-36 G/DL Red Cell Distribution Width 13.0 10.0-14.5 % Platelet Count 624 H 130-400 10^3/uL Mean Platelet Volume 9.1 7.4-10.4 FL Neutrophils (%) (Auto) 82 H 42-75 % Lymphocytes (%) (Auto) 6 L 12-44 % Monocytes (%) (Auto) 10 0-12 % Eosinophils (%) (Auto) 1 0-10 % Basophils (%) (Auto) 0 0-10 % Neutrophils # (Auto) 10.5 H 1.8-7.8 X 10^3 Lymphocytes # (Auto) 0.8 L 1.0-4.0 X 10^3 Monocytes # (Auto) 1.3 H 0.0-1.0 X 10^3 Eosinophils # (Auto) 0.2 0.0-0.3 10^3/uL Basophils # (Auto) 0.1 0.0-0.1 10^3/uL Neutrophils % (Manual) 79 % Lymphocytes % (Manual) 11 % Monocytes % (Manual) 9 % Eosinophils % (Manual) 1 % Platelet Estimate INCREASED Blood Morphology Comment NORMAL Sodium Level 127 L 135-145 MMOL/L Potassium Level 4.4 3.6-5.0 MMOL/L Chloride Level 94 L 98-107 MMOL/L Carbon Dioxide Level 22 21-32 MMOL/L Anion Gap 11 5-14 MMOL/L Blood Urea Nitrogen 39 H 7-18 MG/DL Creatinine 1.78 H 0.60-1.30 MG/DL Estimat Glomerular Filtration Rate 38 BUN/Creatinine Ratio 22 Glucose Level 122 H 70-105 MG/DL Calcium Level 10.1 8.5-10.1 MG/DL Corrected Calcium 10.4 H 8.5-10.1 MG/DL Total Bilirubin 0.7 0.1-1.0 MG/DL Aspartate Amino Transf (AST/SGOT) 53 H 5-34 U/L Alanine Aminotransferase (ALT/SGPT) 25 0-55 U/L Alkaline Phosphatase 58 40-136 U/L Total Protein 6.8 6.4-8.2 GM/DL Albumin 3.6 3.2-4.5 GM/DL Lactic Acid Level 0.84 0.50-2.00 MMOL/L Urine Color YELLOW Urine Clarity CLEAR Urine pH 6.5 5-9 Urine Specific [place] 1.010 L 1.016-1.022 Urine Protein NEGATIVE NEGATIVE Urine Glucose (UA) NEGATIVE NEGATIVE Urine Ketones NEGATIVE NEGATIVE Urine Nitrite NEGATIVE NEGATIVE Urine Bilirubin NEGATIVE NEGATIVE Urine Urobilinogen NORMAL NORMAL MG/DL Urine Leukocyte Esterase NEGATIVE NEGATIVE Urine RBC (Auto) NEGATIVE NEGATIVE Urine RBC NONE /HPF Urine WBC NONE /HPF Urine Crystals NONE /LPF Urine Bacteria NEGATIVE /HPF Urine Casts NONE /LPF Urine Mucus NEGATIVE /LPF Urine Culture Indicated NO My Orders Orders - MALOU ROONEY MD Cbc With Automated Diff (03/29/18 09:39) Comprehensive Metabolic Panel (03/29/18 09:39) Ua Culture If Indicated (03/29/18 09:39) Ct Head Wo (03/29/18 09:48) Manual Differential (03/29/18 09:30) Lactic Acid Analyzer (03/29/18 10:09) Iv/Invasive Line Insertion .IV start (03/29/18 10:31) Bladder Scan (03/29/18 10:31) Lidocaine 2% (Urojet) (Xylocaine Urojet) (03/29/18 10:41) Lidocaine 2% (Urojet) (Xylocaine Urojet) (03/29/18 11:00) Blood Culture (03/29/18 11:07) Knee, Right, 3 Views (03/29/18 11:07) Ns Iv 500 Ml (Sodium Chloride 0.9%) (03/29/18 11:05) Ns Iv 500 Ml (Sodium Chloride 0.9%) (03/29/18 11:15) Pelvis With Right Hip 2-3views (03/29/18 11:07) Us Venous Lower Ext Rt (03/29/18 12:11) Ns Iv 500 Ml (Sodium Chloride 0.9%) (03/29/18 12:11) Medications Given in ED Current Medications Medications Dose Ordered Sig/Allison Route Start Time Stop Time Status Last Admin Dose Admin Lidocaine HCl 10 ml ONCE ONCE TOP 03/29/18 11:00 03/29/18 11:01 DC 03/29/18 10:45 10 ML Sodium Chloride 500 ml @ 0 mls/hr Q0M ONCE IV 03/29/18 12:11 03/29/18 12:16 DC 03/29/18 12:20 500 MLS/HR Vital Signs/I&O 03/29/18 09:19 Temp 98.2 Pulse 98 Resp 20 B/P (MAP) 135/111 (119) Pulse Ox 8 O2 Delivery Room Air Blood Pressure Mean: 119 Progress Progress Note : Progress Note Seen and evaluated. Patient has symptoms of urinary retention and Rodriguez catheter placed by nursing with 1100 output of dark urine. Tolerating Rodriguez catheter well. Did have falls so we will check CT of the head as well as x-ray of the right hip and pelvis and right knee. Family reports that he has had some increased confusion recently so we'll check labs. Normal saline 500 mL bolus. Monitor patient. 1215: Repeat normal saline 500 mL bolus. We will go ahead and get ultrasound of the right lower extremity to rule out DVT. Patient is anticoagulated but there has been some recent history of fevers and confusion so we will verify there is no blood clots. This was discussed with patient and family who agree. 1320: Preliminary read shows no blood clots in the leg. He is doing much better after the second bolus of fluid. He wants to go home. He would like to Rodriguez catheter removed as well. This will be removed. Discharge home with return precautions. Patient verbalize understanding instructions and agreement with plan. Diagnostic Imaging Diagonstic Imaging: CT Plain Films/CT/US/NM/MRI: head Diagonstic Imaging: Xray Plain Films/CT/US/NM/MRI: knee Comments [facility]. [place], [place] NAME: [facility]АТЬЯНА [facility] REC#: [id number] PT STATUS: REG ER : 1945 PHYSICIAN: MALOU ROONEY MD ADMIT DATE: 03/29/18/ER Draft Date of Exam:03/29/18 KNEE, RIGHT, 3 VIEWS INDICATION: Fall pain FINDINGS: Total knee arthroplasty performed. The hardware appeared intact. Residual osseous structures showed no fracture. Lateral radiograph suggest a knee joint effusion. IMPRESSION: Probable joint effusion with no acute bone or hardware pathology apparent. Dictated on workstation # [id number] Dict: 03/29/18 1135 Trans: 03/29/18 1138 [facility] [id number] Interpreted by: TRISTIAN ELIZABETH Electronically signed by: Matteonsluis antonio Imaging: Xray Plain Films/CT/US/NM/MRI: pelvis, hip Comments [facility] [place] [place] NAME: ТАТЬЯНА [facility] REC#: [id number] PT STATUS: REG ER : 1945 PHYSICIAN: MALOU ROONEY MD ADMIT DATE: 03/29/18/ER Draft Date of Exam:03/29/18 PELVIS WITH RIGHT HIP 2-3VIEWS Indication: Fall increasing confusion, pain Findings: Bilateral total hips replaced. Femoral heads components oriented in the acetabular component. There is postsurgical changes at the level of the symphysis as well as to the lumbar spine. No acute abnormality identified. Two-view right hip showed no fracture. IMPRESSION: Postsurgical changes otherwise negative. Dictated on workstation # [id number] Dict: 03/29/18 1133 Trans: 03/29/18 1145 [facility] [id number] Interpreted by: TRISTIAN ELIZABETH Electronically signed by: Matteonsluis antonio Imaging: Ultrasound Plain Films/CT/US/NM/MRI: leg Comments No findings of DVT on preliminary read. Departure Impression Primary Impression: Contusion Qualified Codes: S70.01XA - Contusion of right hip, initial encounter Additional Impressions: Dehydration Urinary retention Disposition: 01 HOME, SELF-CARE Condition: Improved Departure-Patient Inst. Decision time for Depature: 13:23 Referrals: NO,LOCAL PHYSICIAN (PCP/Family) Primary Care Physician Patient Instructions: Contusion (DC), Dehydration, Adult (DC), Urinary Retention (DC) Add. Discharge Instructions: All discharge instructions reviewed with patient and/or family. Voiced understanding. Drink plenty of fluids. Continue previously prescribed meds. Continue previous therapy for your knee. Return for worse pain, fever, vomiting, weakness, breathing problems or other concerns as needed. MALOU ROONEY MD Mar 29, 2018 12:11
--- NOTE | 2018-03-29 13:35 | Diagnostic Imaging Report ---
PROCEDURE: US right lower extremity venous. TECHNIQUE: Multiple real-time grayscale images were obtained over the right lower extremity in various projections. Additional spectral analysis and color Doppler duplex images were also obtained. INDICATION: Leg pain. Fall. Recent knee replacement. FINDINGS: There is normal compression flow and augmentation demonstrated from the right common femoral vein to the popliteal vein. Greater saphenous junction is patent. The visualized calf veins are patent. IMPRESSION: 1. No sonographic evidence of right lower extremity deep venous thrombosis. Dictated by: Dictated on workstation # [id number]
[2018-03-29 13:50] VITALS: BP 105/71
== END 2018-03-29 13:50 | disposition home or self-care (01) ==
LOC: EDUNIT# 08:39 → ER 08:40
DX: S70.01XA Contusion of right hip, initial encounter (principal); E86.0 Dehydration; R33.9 Retention of urine, unspecified; I10 Essential (primary) hypertension; E78.00 Pure hypercholesterolemia, unspecified; K21.0 Gastro-esophageal reflux disease with esophagitis; E11.9 Type 2 diabetes mellitus without complications; Z85.46 Personal history of malignant neoplasm of prostate; Z87.442 Personal history of urinary calculi; Z88.5 Allergy status to narcotic agent; Z88.7 Allergy status to serum and vaccine; Z87.891 Personal history of nicotine dependence; Z96.611 Presence of right artificial shoulder joint; Z96.641 Presence of right artificial hip joint; Z96.652 Presence of left artificial knee joint; W18.30XA Fall on same level, unspecified, initial encounter
CPT/HCPCS: 36415; 51702; 70450; 73562; 80053; 81000; 83605; 85007; 85027; 87040

== ENCOUNTER 2018-06-25 18:40 | Emergency (ER) | payer MEDICARE, MEDICAID ==
[~2018-06-25] VITALS: Ht 175.3 cm; Wt 77.6 kg
[~2018-06-25 18:40] MED LIST changes: -AMLO10TA6 PO; +AMLO10TA7 PO; +SENN-231 PO
--- NOTE | 2018-06-25 19:30 | ED Upper Extremity ---
General Chief Complaint: Upper Extremity Stated Complaint: SHOULDER PAIN Nursing Triage Note: pt presents with left shoulder pain x 1 month. pt reports having rotator cuff surgery on affected shoulder 1 year ago. pt denies recent injury to shoulder. Nursing Sepsis Screen: No Definite Risk (VIPUL LEDBETTER MED STUDENT) History of Present Illness Date Seen by Provider: Jun 25, 2018 Time Seen by Provider: 19:10 Initial Comments Patient is a 73 year old male presenting to the ED for increasing left shoulder pain. He has an extensive history for that shoulder, including repair surgery approximately one year ago. About two months ago he feels he re-injured it, though he cannot recall an inciting event or trauma. Since that time he states he has had increasing pain in the shoulder, until it got bad enough that he came to the ED today. He states that he has an appointment with Dr. Brasher, his previous surgeon, in [place] in two weeks to discuss repair. He describes the pain in his left shoulder today as sharp/burning 7/10 pain at the superior aspect of the glenohumeral joint as well as subscapularly. He states nothing seems to improve the pain, and he nothing makes it worse, but he keeps it mainly immobile to avoid aggravating it. He has been taking Vicodin twice a day for pain. Onset: other (two months ago) Severity: mild Pain/Injury Location: left shoulder Method of Injury: unknown Modifying Factors: Worse With Movement; Improves With Pain Medication (VIPUL LEDBETTER MED STUDENT) Allergies and Home Medications Allergies Coded Allergies: morphine (Verified Allergy, Severe, HIVES, N/V, 04/25/15) fentanyl (Verified Allergy, Mild, RESTLESS, 12/07/16) Home Medications Allopurinol 300 Mg Tablet, 150 MG PO DAILY, (Reported) take 1/2 of 300mg tab Amitriptyline HCl 50 Mg Tablet, 50 MG PO HS, (Reported) Amlodipine Besylate 10 Mg Tablet, 10 MG PO DAILY, (Reported) Atorvastatin Calcium 40 Mg Tablet, 40 MG PO HS, (Reported) Budesonide/Formoterol Fumarate 10.2 Gm Hfa.aer.ad, 2 PUFF IH BID, (Reported) Buspirone HCl 10 Mg Tablet, 5-10 MG PO BID, (Reported) TAKE 1/2 OF 10MG TAB IN AM TAKE 1 WHOLE TAB AT HS Cetirizine HCl 10 Mg Tablet, 10 MG PO DAILY, (Reported) Cyclobenzaprine HCl 10 Mg Tablet, 10 MG PO HS PRN for PAIN-MODERATE TO SEVERE Prescribed by: THOMAS ALLEN on 06/25/182035 Dexlansoprazole 60 Mg Cap.dr.bp, 60 MG PO DAILY, (Reported) Dronabinol 2.5 Mg Capsule, 2.5 MG PO BID, (Reported) Ezetimibe 10 Mg Tablet, 10 MG PO DAILY, (Reported) Fenofibrate Nanocrystallized 145 Mg Tablet, 145 MG PO DAILY, (Reported) Hydrochlorothiazide 25 Mg Tablet, 25 MG PO DAILY, (Reported) Hydrocodone/Acetaminophen 1 Each Tablet, 1 EACH PO Q4H, (Reported) Hydrocodone/Acetaminophen 1 Each Tablet, 1 TAB PO Q6H Prescribed by: THOMAS ALLEN on 06/25/182035 Metoprolol Succinate 100 Mg Tab.er.24h, 100 MG PO DAILY, (Reported) Montelukast Sodium 10 Mg Tablet, 10 MG PO HS, (Reported) Prednisone 20 Mg Tab, 1 TAB PO DAILY Prescribed by: THOMAS ALLEN on 06/25/182035 Tamsulosin HCl 0.4 Mg Cap.er.24h, 0.4 MG PO DAILY, (Reported) Tiotropium [place] 4 Gm Mist.inhal, 2 PUFF IH DAILY, (Reported) Patient Home Medication List Home Medication List Reviewed: Yes (VIPUL LEDBETTER MED STUDENT) Review of Systems Constitutional: no symptoms reported EENTM: no symptoms reported Respiratory: no symptoms reported Cardiovascular: no symptoms reported Gastrointestinal: no symptoms reported Genitourinary: no symptoms reported Musculoskeletal: joint pain (left shoulder) Skin: no symptoms reported Psychiatric/Neurological: No Symptoms Reported (VIPUL LEDBETTER MED STUDENT) Past Luivswl-Rvbvvh-Zfpqnh Hx Patient Social History Alcohol Use: Denies Use Recreational Drug Use: No Smoking Status: Former Smoker Type Used: Cigarettes Former Smoker, Quit: Nov 06, 1990 2nd Hand Smoke Exposure: No Recent Foreign Travel: No Contact w/Someone Who Travel: No Recent Infectious Disease Expo: No Recent Hopitalizations: No (VIPUL LEDBETTER MED STUDENT) Immunizations Up To Date Tetanus Booster (TDap): Less than 5yrs Date of Pneumonia Vaccine: Feb 06, 2015 Date of Influenza Vaccine: Jan 24, 2016 (VIPUL LEDBETTER MED STUDENT) Seasonal Allergies Seasonal Allergies: No (VIPUL LEDBETTER MED STUDENT) Past Medical History Surgeries: Yes Joint Replacement Respiratory: Yes Asthma, Sleep Apnea, COPD Currently Using CPAP: Yes Currently Using BIPAP: No Cardiac: Yes Hypertension Neurological: No Reproductive Disorders: No Sexually Transmitted Disease: No HIV/AIDS: No Genitourinary: Yes ("small kidney") Prostate Problems Gastrointestinal: Yes (fatty liver) Gastroesophageal Reflux Musculoskeletal: Yes (chronic hip and knee pain) Degenerate Disk Disease, Arthritis, Back Injury, Chronic Back Pain, Gout Endocrine: No Diabetes, Non-Insulin dep HEENT: No Loss of Vision: Bilateral Hearing Impairment: Denies Cancer: Yes Prostate What Type of Treatment Did You: Radiation, Surgical Intervention Psychosocial: No Integumentary: No Blood Disorders: No Adverse Reaction/Blood Tranf: No (HAS HAD BLOOD WITH NO REACTION) (VIPUL LEDBETTER MED STUDENT) Family Medical History No Pertinent Family Hx, Other Conditions/Hx (VIPUL LEDBETTER MED STUDENT) Physical Exam Vital Signs Vital Signs - First Documented 06/25/18 06/25/18 18:49 20:43 Temp 97.1 Pulse 102 Resp 18 B/P (MAP) 136/84 (101) Pulse Ox 100 O2 Delivery Room Air (THOMAS QUIROZ MD) Vital Signs Capillary Refill : Less Than 3 Seconds (VIPUL LEDBETTER MED STUDENT) Height, Weight, BMI Height: 5'9.00" Weight: 171lbs. 0.0oz. 77.869966ed; 27.5 BMI Method:Stated General Appearance: WD/WN, no apparent distress HEENT: PERRL/EOMI, normal ENT inspection Neck: full range of motion, normal inspection Cardiovascular: regular rate, rhythm, no gallop, no murmur Respiratory: lungs clear, normal breath sounds, no respiratory distress Gastrointestinal: non tender, soft Shoulder: No normal ROM; limited ROM, pain (pain over the superior aspect of the left glenohumeral joint and the medial inferor aspect of the left scapula) ( VIPUL LEDBETTER MED STUDENT) Progress/Results/Core Measures Results/Orders My Orders Orders - THOMAS QUIROZ MD Im/Sub-Q Injection Non-Ab Ed (06/25/18 ) (THOMAS QUIROZ MD) Medications Given in ED (THOMAS QUIROZ MD) Vital Signs/I&O (THOMAS QUIROZ MD) Blood Pressure Mean: 101 Progress Progress Note : Progress Note I personally interviewed, seen, examined this patient along with Vipul Ledbetter , MS4. I agree with his history, exam, assessment, and documentation with the following additions. Exam: Gen.: Alert, oriented, mild distress from pain HEENT: Normocephalic and atraumatic Neck: Normal to inspection Lungs: Clear to auscultation bilaterally with normal effort Heart: Regular rate and rhythm without murmur Musculoskeletal: There is tenderness medial to the left scapula and up into the trapezius muscle. He has general pain with range of motion in the shoulder. Skin: Warm and dry with normal color Patient has a pending appointment with his orthopedist. In the meantime, I recommended NSAID therapy and muscle relaxers. He was given a dose of Toradol and cyclobenzaprine in the ER with improvement. He has used steroids in the past with success and no significant side effects. A burst of prednisone is being provided for further treatment. (THOMAS QUIROZ MD) Departure Impression Primary Impression: Chronic left shoulder pain Additional Impression: Muscle strain Disposition: 01 HOME, SELF-CARE Condition: Improved Departure-Patient Inst. Referrals: NO,LOCAL PHYSICIAN (PCP/Family) Primary Care Physician Patient Instructions: CHRONIC PAIN Add. Discharge Instructions: Drink plenty of clear liquids. Use your medication as prescribed. You may apply gentle heat to sore muscles to help them relax. Please follow up with your primary care provider and your orthopedic surgeon as soon as possible for further assessment and treatment. Return to care if you have worsening symptoms. All discharge instructions reviewed with patient and/or family. Voiced understanding. Scripts Prednisone (Prednisone) 20 Mg Tab 1 TAB PO DAILY, #3 TAB Prov: THOMAS QUIROZ MD 06/25/18 Hydrocodone/Acetaminophen (Hydrocodone-Acetamin 5-325 mg) 1 Each Tablet 1 TAB PO Q6H for PAIN-MODERATE MDD 10, #10 TAB Prov: THOMAS QUIROZ MD 06/25/18 Cyclobenzaprine HCl (Cyclobenzaprine HCl) 10 Mg Tablet 10 MG PO HS PRN for PAIN-MODERATE TO SEVERE, #10 TAB Prov: THOMAS QUIROZ MD 06/25/18 VIPUL LEDBETTER MED STUDENT Jun 25, 2018 19:30 THOMAS QUIROZ MD Jun 25, 2018 20:37
[2018-06-25] MEDS ORDERED: ORPHENADRINE 60 MG/2 ML (NORFLEX) AMP IM ONE (20:15)
[2018-06-25] MEDS ORDERED: KETOROLAC 30 MG/ML VIAL IM ONE (20:15)
[2018-06-25] MEDS ORDERED: CYCLOBENZAPRINE 10 MG (FLEXERIL) TAB PO ONE (20:30)
[2018-06-25] MEDS ORDERED: CYCL10TA9 PO (20:36)
[2018-06-25] MEDS ORDERED: HYDR-3812 PO (20:36)
[2018-06-25] MEDS ORDERED: PRD20T PO (20:36)
[2018-06-25 20:43] VITALS: BP 134/84
[2018-06-25] MEDS ORDERED: predniSONE 20 MG TAB PO ONE (20:45)
== END 2018-06-25 20:44 | disposition home or self-care (01) ==
LOC: EDUNIT# 18:40 → ER 18:43
DX: S46.912A Strain of unspecified muscle, fascia and tendon at shoulder and upper arm level, left arm, initial encounter (principal); M25.511 Pain in right shoulder; G89.29 Other chronic pain; J44.9 Chronic obstructive pulmonary disease, unspecified; G47.30 Sleep apnea, unspecified; I10 Essential (primary) hypertension; K21.9 Gastro-esophageal reflux disease without esophagitis; M10.9 Gout, unspecified; E11.9 Type 2 diabetes mellitus without complications; Z85.46 Personal history of malignant neoplasm of prostate; Z92.21 Personal history of antineoplastic chemotherapy; Z87.19 Personal history of other diseases of the digestive system; Z88.5 Allergy status to narcotic agent; Z88.8 Allergy status to other drugs, medicaments and biological substances; Z79.52 Long term (current) use of systemic steroids; Z87.891 Personal history of nicotine dependence; Z96.611 Presence of right artificial shoulder joint; X58.XXXA Exposure to other specified factors, initial encounter
CPT/HCPCS: 96372; 99284

== ENCOUNTER 2018-10-17 11:30 | Outpatient (CLI) | payer MEDICARE, MEDICAID ==
[~2018-10-17] VITALS: Ht 175.3 cm; Wt 82.1 kg
[~2018-10-17 11:30] MED LIST changes: +HYDR-3812 PO
== END 2018-10-17 13:41 | disposition home or self-care (01) ==
LOC: PREOP 11:30
PROVIDERS: ATTEND Surgery
DX: Z01.818 Encounter for other preprocedural examination (principal)

== ENCOUNTER 2018-10-22 09:34 | Day surgery (SDC) | payer MEDICARE, MEDICAID ==
[~2018-10-22] VITALS: Ht 175.3 cm; Wt 82.1 kg
[2018-10-22 09:55] VITALS: BP 139/75
[2018-10-22] MEDS ORDERED: fentaNYL INJECTION 100 MCG/2 ML AMP IVP ONE (10:00)
[2018-10-22] MEDS ORDERED: NS IV 500 ML 500 ML ONE (10:00)
--- NOTE | 2018-10-22 10:07 | Conscious Sedation/ASA ---
Conscious Sedation Pre-Proced Time 10:00 ASA Score 3 For ASA 3 and 4: Consider anesthesia and medical clearance. Also, for patients with a history of failed moderate sedation consider anesthesia. Airway Lungs Heart ASA score ASA 1: a normal healthy patient ASA 2: a patient with a mild systemic disease (mid diabetes, controlled hypertension, obesity ASA 3: a patient with a severe systemic disease that limits activity (angina, COPD, prior Myocardial infarction) ASA 4: a patient with an incapacitating disease that is a constant threat to life (CHF, renal failure) ASA 5: a moribund patient not expected to survive 24 hrs. (ruptured aneurysm) ASA 6: a declared brain- patient whose organs are being harvested. For emergent operations, add the letter E after the classification Mallampati Classification Grade 2 Sedation Plan Analgesia, Amnesia, Plan communicated to team members, Discussed options with patient/fam, Discussed risks with patient/fam The patient is an appropriate candidate to undergo the planned procedure, sedation, and anesthesia. The patient immediately re-assessed prior to indication. KAUSHIK SHEN MD Oct 22, 2018 10:07
--- NOTE | 2018-10-22 10:10 | Progress Note-Pre Operative ---
Pre-Operative Progress Note H&P Reviewed The H&P was reviewed, patient examined and no changes noted. Date Seen by Provider: Oct 22, 2018 Time Seen by Provider: 10:00 Date H&P Reviewed: Oct 22, 2018 Time H&P Reviewed: 10:00 Pre-Operative Diagnosis: PUD, hematamesis KAUSHIK SHEN MD Oct 22, 2018 10:10
--- NOTE | 2018-10-22 10:13 | Discharge Inst-Surgical ---
D/C Lap Instructions-HERMELINDA Follow Up Appt in 2 weeks Activity as tolerated High Fiber Diet 25g or more per day Avoid Alcohol, Caffeine, Spicy [place] and Acid foods. Drink 64 fluid oz or more of fluids per day. Symptoms to Report: Fever over 101 degree F, Nausea/Vomiting If any problems/questions: Contact your physician or go to Emergency Room KAUSHIK SHEN MD Oct 22, 2018 10:13
[2018-10-22] MEDS ORDERED: ONDANSETRON 4 MG/2 ML (SDV) Z0FRAN IVP PRN (10:15)
[2018-10-22] MEDS ORDERED: HYDROcodone/APAP 5 MG/325 MG (LORTAB) TAB PO PRN (10:15)
[2018-10-22] MEDS ORDERED: ACETAMINOPHEN 325 MG TABLET PO PRN (10:15)
[2018-10-22] MEDS ORDERED: LISI40TA PO (10:27)
[2018-10-22] MEDS ORDERED: MULT-1056 PO (10:27)
[2018-10-22] MEDS ORDERED: RT-ALBUINH IH (10:27)
[2018-10-22] MEDS ORDERED: FLUT1BLS3 IH (10:27)
[2018-10-22] MEDS ORDERED: AMIT100T2 PO (10:27)
[2018-10-22] MEDS: NS IV 500 ML 500 ML IV PRN (11:00)
[2018-10-22] MEDS ORDERED: MIDAZOLAM 2 MG/2 ML (VERSED) VIAL ONE ×4 (11:32→11:39)
[2018-10-22] MEDS ORDERED: LIDOCAINE JELLY 2% 6 ML SYRINGE ONE (11:32)
[2018-10-22] MEDS: MIDAZOLAM 2 MG/2 ML (VERSED) VIAL IVP ONE (11:40)
[2018-10-22] MEDS: HURRICAINE EXT TUBE (BENZOCAINE) XX PRN (11:40)
[2018-10-22] MEDS ORDERED: fentaNYL INJECTION 100 MCG/2 ML AMP ONE (11:42)
[2018-10-22] MEDS ORDERED: ONDANSETRON 4 MG/2 ML (SDV) Z0FRAN ONE (11:42)
[2018-10-22] MEDS: LIDOCAINE JELLY 2% 6 ML SYRINGE MM PRN (11:47)
[2018-10-22 12:40] VITALS: BP_SYST 132; BP_DIAS 76; BP_DIAS 78
--- NOTE | 2018-10-22 13:06 | Progress Note-Post Operative ---
Post-Operative Progess Note Surgeon (s)/Associate Broker (s) Surgeon KAUSHIK SHEN MD Associate Broker: none Pre-Operative Diagnosis PUD, hematamesis Post-Operative Diagnosis reflux esophagitis(stage 2), small HH(2cm), moderate-severe antral gastritis. Procedure & Operative Findings Date of Procedure 10/22/18 Procedure Performed/Findings EGD with bx. Anesthesia Type cs Estimated Blood Loss Estimated blood loss (mL): minimal Specimens/Packing Specimens Removed ge jxn, antrum KAUSHIK SHEN MD Oct 22, 2018 13:06
--- NOTE | 2018-10-22 18:24 | OPERATIVE REPORT ---
DATE OF SERVICE: 10/22/2018 ATTENDING PRIMARY CARE PHYSICIAN: Dr. Contreras. PREOPERATIVE DIAGNOSIS: History of peptic ulcer disease with an episode of hematemesis. POSTOPERATIVE DIAGNOSES: Reflux esophagitis, stage II small hiatal hernia 2 cm in size, moderate to severe gastritis more focused towards the stomach antrum with very small areas of erosions; however, no formal ulcerations or any bleeding. PROCEDURE PERFORMED: Esophagogastroduodenoscopy with biopsy. SURGEON: Kaushik Shen MD ANESTHESIA: Conscious sedation. ESTIMATED BLOOD LOSS: Minimal. FINDINGS: Reflux esophagitis, stage II small hiatal hernia 2 cm in size, moderate to severe gastritis more focused towards the stomach antrum with very small areas of erosions; however, no formal ulcerations or any bleeding. DISPOSITION: The patient tolerated the procedure well. INDICATIONS: The patient is a 73-year-old male known to us. He has had this longstanding history of reflux as well as intermittent episodes of nausea and vomiting. He does have a number of different medical comorbidities and is on a number of different medications. He states he has had two more recent orthopedic joint procedures which did result in extended hospital stays as well. We have done 2 previous EGDs on him and was found to have a significant gastritis; however, no active bleeding. He did have an episode of hematemesis more recently. He is currently on Dexilant 60 mg daily. DESCRIPTION OF PROCEDURE: The patient was brought to the endoscopy suite, laid in the left lateral decubitus position. After adequate IV pain and sedating medications and conscious sedation anesthesia, the mouthpiece was applied. The endoscope was then gently intubated in the esophageal opening and esophagus insufflated. The endoscope was then advanced to the first, second and third portion of the esophagus at the level of the GE junction, a reflux esophagitis, stage II identified. There were no ulcers or strictures identified in this region. A biopsy was taken with forceps with visualization of good hemostasis. The endoscope was then advanced in the stomach and endoscope retroflexed, visualizing a small hiatal hernia approximately 2 cm in size. There was a moderate to severe gastritis more towards the antrum of the stomach with a few small superficial erosions; however, no active bleeding or formal ulcerations. A biopsy was taken of one of these regions using forceps with visualization of good hemostasis. The endoscope was then advanced to the pylorus and the first and second portion of the duodenum, which appeared normal with no distal obstructions. There were also no duodenal ulcerations. The endoscope was then slowly withdrawn while taking a second look and suctioning of residual air with no additional findings. The patient tolerated the procedure well. We will recommend continued medical management with the necessary lifestyle and diet accommodation including small and more frequent meals, avoidance of eating at night as well as head elevation while lying supine. He also needs to avoid caffeinated beverages, spicy, greasy and acidic foods. We will have him to continue with Dexilant; however, we will add Carafate 1 gram q.i.d. for 2 weeks, then on a p.r.n. basis. Job ID: [id number] DocumentID: [id number] Dictated Date: 10/22/2018 12:11:58 Storyboard Artist Date: 10/22/2018 18:24:10 Dictated By: KAUSHIK SHEN MD MTDD
== END 2018-10-22 12:45 ==
LOC: ENDO 09:34
PROVIDERS: ATTEND Surgery
DX: K21.0 Gastro-esophageal reflux disease with esophagitis (principal); K44.9 Diaphragmatic hernia without obstruction or gangrene; K29.70 Gastritis, unspecified, without bleeding; E78.5 Hyperlipidemia, unspecified; J44.9 Chronic obstructive pulmonary disease, unspecified; I34.1 Nonrheumatic mitral (valve) prolapse; G47.30 Sleep apnea, unspecified; K31.84 Gastroparesis; M10.9 Gout, unspecified; I25.10 Atherosclerotic heart disease of native coronary artery without angina pectoris; M19.90 Unspecified osteoarthritis, unspecified site; I12.9 Hypertensive chronic kidney disease with stage 1 through stage 4 chronic kidney disease, or unspecified chronic kidney disease; N18.3 Chronic kidney disease, stage 3 (moderate); Z87.11 Personal history of peptic ulcer disease; Z88.5 Allergy status to narcotic agent; Z85.46 Personal history of malignant neoplasm of prostate; Z96.642 Presence of left artificial hip joint; Z96.653 Presence of artificial knee joint, bilateral; Z87.891 Personal history of nicotine dependence; Z92.3 Personal history of irradiation; Z90.49 Acquired absence of other specified parts of digestive tract; Z79.52 Long term (current) use of systemic steroids; Z79.899 Other long term (current) drug therapy
CPT/HCPCS: 88305; 88342

== ENCOUNTER → 2018-11-03 | Outpatient (CLI) | payer MEDICARE, MEDICAID ==
[~2018-11-03] MED LIST changes: +FLUT1BLS3 IH; +MULT-1056 PO; +RT-ALBUINH IH
--- NOTE | 2018-11-03 15:50 | Diagnostic Imaging Report ---
PROCEDURE: CT lumbar spine without contrast. TECHNIQUE: Multiple contiguous axial images were obtained through the lumbar spine without the use of intravenous contrast. Sagittal and coronal reformations were then performed. Auto Exposure Controls were utilized during the CT exam to meet ALARA standards for radiation dose reduction. INDICATION: Low back pain with pain radiating into the right leg. Patient has had prior spinal surgery. COMPARISON: Correlation is made with prior CT lumbar spine study from 12/07/2016. FINDINGS: Curvature and alignment of the lumbar spine is normal. Postop changes of decompression laminectomy with posterior instrumented fusion extending from L3 through S1 is again seen. There are vertical stabilization rods and bipedicular screws at these levels. The left L3 pedicle screw again demonstrates superior course extending into the inferior endplate of the L2 vertebral body, similar to prior exam. The amount of lucency surrounding the left L3 pedicle screw is similar to prior study. Remaining screws are intact without fracture or loosening. Vertebral body heights are maintained. No acute bony abnormality is detected. Paraspinous tissues are unremarkable. IMPRESSION: Overall stable CT of the lumbar spine when compared with exam from 12/07/2016. Posterior instrumented fusion and decompressed laminectomy at L3 through S1 is again seen. No acute feature is identified. Dictated by: Dictated on workstation # [id number]
== END ==
LOC: RAD 14:46
PROVIDERS: ATTEND Nurse Practitioner Family
DX: M54.5 Low back pain (principal); Z98.1 Arthrodesis status
CPT/HCPCS: 72131

== ENCOUNTER 2018-11-07 09:51 | Emergency (ER) | payer MEDICARE, MEDICAID ==
[~2018-11-07] VITALS: Ht 175.3 cm; Wt 113.4 kg
[~2018-11-07 09:51] MED LIST changes: -DULO30CA48; +DULO30CA49
--- OUTSIDE RECORDS SUMMARY | 2018-11-07 09:55 | XMS REPORT | Encounter Summary ---
Author Author [facility] Organization [facility] Address Unknown Phone Unavailable Care Team Providers Care Business Process Lead Name Role Phone PCP Unavailable Encounter Details Care Team Description Date Type Department Virginia Rosa MD [address] [place] [address] [phone] 08/23/2011 [facility]-Hist Visit [facility] NON Social History Date Tobacco Use Types Packs/Day Years Used Never Assessed Sex Assigned at Date Recorded Not on file Industry Job Start Date Occupation Not on file Not on file Not on file Travel End Travel History Travel Start No recent travel history available. documented as of this encounter Plan of Treatment Not on filedocumented as of this encounter Visit Diagnoses Not on filedocumented in this encounter
--- OUTSIDE RECORDS SUMMARY | 2018-11-07 09:55 | XMS REPORT | Clinical Summary ---
Author Author [facility] Organization [facility] Address Unknown Phone Unavailable Care Team Providers Care Instructional Systems Specialist Name Role Phone PCP Unavailable Allergies Not on File Medications Not on file Active Problems Not on file Social History Date Tobacco Use Types Packs/Day Years Used Never Assessed Sex Assigned at Date Recorded Not on file Industry Job Start Date Occupation Not on file Not on file Not on file Travel End Travel History Travel Start No recent travel history available. Last Filed Vital Signs Not on file Plan of Treatment Not on file Results Not on filefrom Last 3 Months
--- OUTSIDE RECORDS SUMMARY | 2018-11-07 09:55 | XMS REPORT | Clinical Summary ---
Author Author [facility] Organization [facility] Address Unknown Phone Unavailable Care Team Providers Care Furnace Unloader Name Role Phone No Pcp, Na PCP Unavailable Source Comments Some departments are not documenting in the electronic medical record. If you d o not see the information that you expected, contact Release of Information in [email or web address] Information Management department at [phone] for further assistan ce in locating additional records.[facility] Allergies Comments Active Allergy Reactions Severity Noted Date Fentanyl AGITATION Low 04/05/2018 Morphine HIVES Medium 04/05/2018 Oxycodone ANXIETY Low 04/05/2018 Medications End Date Status Medication Sig Dispensed Refills Start Date Active albuterol (PROAIR HFA) 90 Inhale 1 puff 0 mcg/actuation inhaler by mouth into the lungs every 4 hours as needed for Wheezing or Shortness of Breath. Shake well before use. Active allopurinol (ZYLOPRIM) Take 150 mg 0 100 mg tablet by mouth daily. Take with food. Active amitriptyline (ELAVIL) Take 100 mg 0 100 mg tablet by mouth at bedtime as needed. Active amLODIPine (NORVASC) 10 Take 10 mg by 0 mg tablet mouth daily. Active atorvastatin (LIPITOR) 40 Take 40 mg by 0 mg tablet mouth at bedtime daily. Active busPIRone (BUSPAR) 5 mg Take 5 mg by 0 tablet mouth every morning. Active busPIRone (BUSPAR) 10 mg Take 10 mg by 0 tablet mouth at bedtime daily. Active dexlansoprazole (+) Take 60 mg by 0 (DEXILANT) 60 mg capsule mouth daily. Active ezetimibe (ZETIA) 10 mg Take 10 mg by 0 tablet mouth at bedtime daily. Active pnioibtyvfd-ooerkgndc-zgp Inhale 1 puff 0 anter 100-62.5-25 mcg by mouth into dsdv the lungs twice daily. Active linaclotide(+) (LINZESS) Take 145 mcg 0 145 mcg cap capsule by mouth daily as needed. Active lisinopril (PRINIVIL; Take 40 mg by 0 ZESTRIL) 20 mg tablet mouth daily. Active metoprolol XL (TOPROL XL) Take 100 mg 0 100 mg extended release by mouth tablet daily. Active montelukast (SINGULAIR) Take 10 mg by 0 10 mg tablet mouth at bedtime daily. Active tamsulosin (FLOMAX) 0.4 Take 0.4 mg 0 mg capsule by mouth twice daily. Do not crush, chew or open capsules. Take 30 minutes following the same meal each day. Active apfkxnnw-gjd-EJ-lycopen-l Take 1 tablet 0 utein (CENTRUM SILVER by mouth ULTRA MEN'S) 300-600-300 every mcg tab morning. Active fenofibrate Take 145 mg 0 nanocrystallized (TRICOR) by mouth at 145 mg tablet bedtime daily. Take with food. Active Problems Problem Noted Date Urinary tract infection associated with indwelling urethral catheter 04/05/2018 BPH (benign prostatic hyperplasia) 04/05/2018 Encephalopathy acute 04/05/2018 Severe malnutrition 04/05/2018 Family History Medical History Relation Name Comments Asthma Mother Heart Attack Mother Hypertension Mother Asthma Sister Hypertension Sister Relation Name Status Comments Mother Sister Social History Date Tobacco Use Types Packs/Day Years Used Quit: 04/08/1998 Former Smoker Cigarettes 2 25 Smokeless Tobacco: Never Used Drinks/Week oz/Week Comments Alcohol Use No Alcohol Habits Answer Date Recorded How often do you have a drink containing alcohol? Never 04/05/2018 How many drinks containing alcohol do you have on Not asked a typical day when you are drinking? How often do you have six or more drinks on one Not asked occasion? Sex Assigned at Date Recorded Not on file Industry Job Start Date Occupation Not on file Not on file Not on file Travel End Travel History Travel Start No recent travel history available. Last Filed Vital Signs Reading Time Taken Comments Vital Sign 149/73 04/10/2018 10:58 AM STERILE PROCESSING TECH Blood Pressure 87 04/10/2018 10:58 AM STERILE PROCESSING TECH Pulse 37.3 C (99.2 F) 04/10/2018 10:58 AM STERILE PROCESSING TECH Temperature - - Respiratory Rate 96% 04/10/2018 10:58 AM STERILE PROCESSING TECH Oxygen Saturation - - Inhaled Oxygen Concentration 87.4 kg (192 lb 10.9 oz) 04/09/2018 5:06 PM STERILE PROCESSING TECH Weight 175.3 cm (5' 9.02") 04/09/2018 5:06 PM STERILE PROCESSING TECH Height 28.44 04/09/2018 5:06 PM STERILE PROCESSING TECH Body Mass Index Plan of Treatment Health Maintenance Due Date Last Done Comments HEPATITIS C SCREENING 1945 PHYSICAL (COMPREHENSIVE) 1952 EXAM DTAP/TDAP VACCINES (1 - 1963 Tdap) COLORECTAL CANCER 1995 SCREENING SHINGLES RECOMBINANT 1995 VACCINE (1 of 2) ABDOMINAL AORTIC ANEURYSM 2010 SCREENING PNEUMONIA (PCV13/PPSV23) 2010 VACCINES (1 of 2 - PCV13) INFLUENZA VACCINE 01/06/2019 Results Not on filefrom Last 3 Months Insurance Type Payer Benefit Subscriber ID Effective Phone Address Plan / Dates Group Medicare MEDICARE MEDICARE xxxxxxxxxx [id number] PART A AND resent B Advance Directives Patient Consumer Affairs Director Explanation Type Date Recorded Advance 04/07/2018 4:18 PM Directive/DPOA Date Inactivated Comments Code Status Date Activated 04/10/2018 3:46 PM Full Code 04/08/2018 11:38 AM Provider has discussed Code Status Yes w/Patient or Family? 04/08/2018 11:37 AM Full Code 04/04/2018 10:02 PM Provider has discussed Code Status No, more discussion w/Patient or Family? needed
--- OUTSIDE RECORDS SUMMARY | 2018-11-07 10:01 | XMS REPORT | Continuity of Care Document ---
Author Organization Unknown Address Unknown Phone Unavailable Allergies Active Description Code Type Severity Reaction Onset Reported/Identified Relationship to Patient Clinical Status Yes FENTANYL FENTANYL MODERATE Yes MORPHINE MORPHINE MODERATE Yes FENTANYL MODERATE DERMATOLOGICAL - TANESHA Yes MORPHINE MODERATE DERMATOLOGICAL - TANESHA Yes morphine [id number] Drug Allergy Severe N/A 07/19/2012 Yes fentanyl [id number] Drug Allergy Unknown N/A 08/19/2013 Yes morphine [id number] Drug Allergy Severe HIVES, N/V 12/07/2016 Yes fentanyl [id number] Drug Allergy Mild RESTLESS 12/07/2016 Yes morphine [id number] Drug Allergy Severe HIVES, N/V,pt h 10/22/2018 Medications Medication Packaging Start Date Stop Date [...] LORAZEPAM TAB 1 MG (ATIVAN) MG 11/25/2016 11/25/2016 PRN ONCE Hydromorphone inj 2mg/cc vial (Dilaudid) MG 01/22/2017 01/22/2017 ONCE&1239 NORMAL SALINE 500CC IV BAG INJ 0.9 % (NS 500CC IV BAG) ml 01/22/2017 01/22/2017 ONCE&1418 Hydromorphone inj 2mg/cc vial (Dilaudid) MG 01/22/2017 01/22/2017 PRN ONCE ACETAMINOPHEN TAB 500 MG (TYLENOL) MG 03/21/2018 03/21/2018 ONCE&1545 NORMAL SALINE 250CC IV BAG INJ 0.9 % (NS 250CC IV BAG) ml 03/21/2018 03/21/2018 ONCE&1620 Hydromorphone inj 2mg/cc vial (Dilaudid) MG 03/21/2018 03/21/2018 PRN ONCE NORMAL SALINE 1000CC IV BAG INJ 0.9 % (NS 1000CC IV BAG) ml 03/30/2018 03/30/2018 ONCE&1506 Problems Date Dx Coded Attending Type Code Diagnosis Diagnosed By 03/07/1454 SHEA PAULSON DO Ot M25.512 PAIN IN LEFT SHOULDER 07/21/2012 Ot 272.4 HYPERLIPIDEMIA NEC/NOS 07/21/2012 Ot 401.9 HYPERTENSION NOS 07/21/2012 Ot 414.01 CORONARY ATHEROSCLEROSIS OF [place] CORON 07/21/2012 Ot 424.1 AORTIC VALVE DISORDER 07/21/2012 Ot 496 CHR AIRWAY OBSTRUCT NEC 07/21/2012 Ot 530.81 ESOPHAGEAL REFLUX 07/21/2012 Ot 786.50 CHEST PAIN NOS 07/21/2012 Ot V58.69 OT MED,LT,CURRENT USE 10/01/2012 ISATU MCDONALD DO Ot 719.45 JOINT PAIN-PELVIS 10/01/2012 ISATU MCDONALD DO Ot V43.65 KNEE JOINT REPLACEMENT STATUS 10/01/2012 ISATU MCDONALD DO Ot V45.89 POSTSURGICAL STATES NEC 10/23/2012 THOMAS QUIROZ MD Ot 272.0 PURE HYPERCHOLESTEROLEM 10/23/2012 THOMAS QUIROZ MD Ot 300.00 ANXIETY STATE NOS 10/23/2012 THOMAS QUIROZ MD Ot 401.9 HYPERTENSION NOS 10/23/2012 THOMAS QUIROZ MD Ot 414.01 CORONARY ATHEROSCLEROSIS OF [place] CORON 10/23/2012 THOMAS QUIROZ MD Ot 493.20 [...] 03/10/2014 KAUSHIK SHEN MD Ot 211.1 03/10/2014 HERMELINDA IRVIN, KAUSHIK Ot 530.11 03/10/2014 KAUSHIK SHEN MD Ot [...] - OTH NONSPECIFIC FINDINGS 03/11/2014 TITO COLE DO Ot [...] Ot 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 06/15/2014 Ot V58.69 OT MED,LT,CURRENT USE 08/10/2014 ANDIE IRVIN, SAV Valencia Ot 185 08/13/2014 ARAVIND WILLIS BARON Ot 272.4 08/13/2014 ARAVIND , WILLIS Damian Ot 401.9 08/13/2014 ARAVIND WILLIS BARON Ot 414.00 08/13/2014 ARAVIND WILLIS BARON Ot 496 08/27/2014 ARAVIND WILLIS BARON Ot 272.4 08/27/2014 ARAVIND WILLIS BARON Ot 401.9 08/27/2014 ARAVIND WILLIS BARON Ot 414.00 08/27/2014 ARAVIND WILLIS BARON Ot 496 09/04/2014 GARY GIBBS APRN Ot 786.2 09/04/2014 OJSE D IRVIN, DIPESH Wall Ot 185 09/17/2014 JOSE D IRVIN, DIPESH E Ot 185 09/28/2014 SAV CHAVES MD Ot 185 10/01/2014 GARY GIBBS APRN Ot 786.2 11/02/2014 JOSE D IRVIN, DIPESH Wall Ot 185 MALIGN NEOPL PROSTATE 11/02/2014 JOSE D IRVIN, DIPESH Wall Ot V58.0 ENCOUNTER FOR RADIOTHERAPY 11/05/2014 JOSE D IRVIN, DIPESH E Ot 185 11/08/2014 JOSE D IRVIN, DIPESH E Ot 185 11/09/2014 JOSE D IRVIN, DIPESH Wall Ot 185 11/16/2014 RADHA LAU Ot 424.1 11/16/2014 HERMELINDA IRVIN, KAUSHIK Ot 211.1 11/16/2014 HERMELINDA IRVIN, KAUSHIK Ot 530.11 11/16/2014 HERMELINDA IRVIN, KAUSHIK Ot 535.50 11/16/2014 HERMELINDA IRVIN, KAUSHIK Ot 553.3 11/16/2014 HERMELINDA IRVIN, KAUSHIK Ot V72.84 11/16/2014 JOSEPH LAU MD Ot 724.5 11/16/2014 SID IRVIN, JOSEPH Merchant Ot 787.02 11/16/2014 JOSEPH LAU MD Ot 789.00 11/16/2014 JOSEPH LAU MD Ot 496 11/16/2014 SID IRVIN, JOSEPH Merchant Ot 496 11/16/2014 SID IRVIN, JOSEPH Merchant Ot 786.50 11/16/2014 SID IRVIN, JOSEPH Merchant Ot 796.4 11/16/2014 WILLIS NAZARIO DO Ot 272.4 11/16/2014 WILLIS NAZARIO DO Ot 401.9 11/16/2014 WILLIS NAZARIO DO Ot 414.00 11/16/2014 WILLIS NAZARIO DO Ot 496 11/16/2014 Ot 605 11/16/2014 Ot 607.1 11/16/2014 Ot V72.83 11/16/2014 Ot V74.8 11/16/2014 ANDIE IRVIN, SAV Valencia Ot 185 11/16/2014 GARY GIBBS APRN Ot 786.2 11/16/2014 JOSE D IRVIN, DIPESH Wall Ot 185 11/16/2014 ARNOLD IRVIN FACC, ALI FACP CCDS Ot 185 MALIGN NEOPL [...] Ot 185 12/06/2014 JOSE D IRVIN, DIPESH Wall Ot 185 12/10/2014 JOSE D IRVIN, DIPESH Wall Ot 185 01/05/2015 JOSE D IRVIN, DIPESH Wall Ot 185 MALIGN NEOPL PROSTATE 01/05/2015 DIPESH JEFFERY MD Ot V58.0 ENCOUNTER FOR RADIOTHERAPY 03/16/2015 KAUSHIK SHEN MD Ot K21.0 GASTRO-ESOPHAGEAL REFLUX DISEASE WITH ES 03/16/2015 KAUSHIK SHEN MD Ot K25.9 GASTRIC ULCER, UNSP ACUTE OR CHRONIC, 03/16/2015 KAUSHIK SHEN MD Ot K29.70 GASTRITIS, UNSPECIFIED, WITHOUT BLEEDING 03/16/2015 KAUSHIK SHEN MD Ot K31.7 POLYP OF STOMACH AND DUODENUM 03/16/2015 KAUSHIK SHEN MD Ot K44.9 DIAPHRAGMATIC HERNIA WITHOUT OBSTRUCTION 03/21/2015 HERMELINDA IRVIN, KAUSHIK Ot K76.0 03/21/2015 HERMELINDA IRVIN, KAUSHIK Ot R10.11 04/07/2015 HERMELINDA IRVIN, KAUSHIK Ot K76.0 04/07/2015 HERMELINDA IRVIN, JOSHAAKI Ot R10.11 04/12/2015 HERMELINDA IRVIN, KAUSHIK Ot K76.0 04/12/2015 HERMELINDA IRVIN, KAUSHIK Ot R10.11 04/19/2015 HERMELINDA IRVIN, KAUSHIK Ot R10.11 04/22/2015 HERMELINDA IRVIN, KAUSHIK Ot R10.11 04/25/2015 JOSE D IRVIN, DIPESH Wall Ot 185 04/25/2015 JOSE D IRVIN, DIPESH Wall Ot 185 04/28/2015 HERMELINDA IRVIN, KAUSHIK Ot K81.1 CHRONIC CHOLECYSTITIS 05/01/2015 BROOKS DIA APRN Ot G89.18 OTHER ACUTE POSTPROCEDURAL PAIN 05/01/2015 BROOKS DIA AUTOMATIC CAR WASH ATTENDANT Ot R11.2 NAUSEA WITH VOMITING, UNSPECIFIED 05/01/2015 BROOKS DIA AUTOMATIC CAR WASH ATTENDANT Ot Z90.49 ACQUIRED ABSENCE OF OTHER SPECIFIED PART 05/24/2015 HERMELINDA IRVIN, KAUSHIK Ot K82.8 05/24/2015 HERMELINDA IRVIN, KAUSHIK Ot Z01.812 05/24/2015 HERMELINDA IRVIN, KAUSHIK Ot Z11.2 06/01/2015 HERMELINDA IRVIN, KAUSHIK Ot K82.8 06/01/2015 HERMELINDA IRVIN, KAUSHIK Ot Z01.812 06/01/2015 HERMELINDA IRVIN, KAUSHIK Ot Z11.2 06/11/2015 SID IRVIN, ALEX Valencia Ot L03.012 CELLULITIS OF LEFT FINGER 08/22/2015 MALOU ROONEY MD Ot G89.29 OTHER CHRONIC PAIN 08/22/2015 MALOU ROONEY MD Ot M54.5 LOW BACK PAIN 08/23/2015 MALOU ROONEY MD Ot G89.29 OTHER CHRONIC PAIN 08/23/2015 MALOU ROONEY MD Ot M54.5 LOW BACK PAIN 10/10/2015 RICHIE IRVIN, THOMAS Fairchild Ot M16.11 UNILATERAL PRIMARY OSTEOARTHRITIS, RIGHT 10/13/2015 RICHIE IRVIN, THOMAS Fairchild Ot M16.11 UNILATERAL PRIMARY OSTEOARTHRITIS, RIGHT 11/08/2015 RICHIE IRVIN, THOMAS Fairchild Ot F41.9 ANXIETY DISORDER, UNSPECIFIED 11/08/2015 RICHIE IRVIN, THOMAS Fairchild Ot R07.89 OTHER CHEST PAIN 11/08/2015 RICHIE IRVIN, THOMAS Fairchild Ot R07.9 CHEST PAIN, UNSPECIFIED 11/09/2015 RICHIE IRVIN, THOMAS Fairchild Ot F41.9 ANXIETY DISORDER, UNSPECIFIED 11/09/2015 RICHIE IRVIN, THOMAS Fairchild Ot R07.89 OTHER CHEST PAIN 11/09/2015 RICHIE [...] IMMUNIZATION 02/22/2016 ELPIDIO BELLE Ot Z79.899 OTHER JAIL (CURRENT) DRUG THERAPY 02/22/2016 ELPIDIO BELLE Ot Z87.891 PERSONAL HISTORY OF NICOTINE DEPENDENCE 02/22/2016 ELPIDIO BELLE Ot Z96.642 PRESENCE OF LEFT ARTIFICIAL HIP JOINT 02/23/2016 RADHA LAU CARD BOXER Ot 424.1 AORTIC VALVE DISORDER 02/23/2016 KAUSHIK SHEN MD Ot 211.1 BENIGN NEOPLASM STOMACH 02/23/2016 KAUSHIK SHEN MD Ot 530.11 REFLUX ESOPHAGITIS 02/23/2016 KAUSHIK SHEN MD Ot 535.50 UNSP GASTRITIS GASTRODUODENITIS W/O ME 02/23/2016 KAUSHIK SHEN MD Ot 553.3 DIAPHRAGMATIC HERNIA 02/23/2016 KAUSHIK SHEN MD Ot V72.84 EXAM PRE-OPERATIVE NOS 02/23/2016 SID IRVIN, JOSEPH Merchant Ot 724.5 BACKACHE NOS 02/23/2016 JOSEPH LAU MD Ot 787.02 NAUSEA ALONE 02/23/2016 JOSEPH LAU MD Ot 789.00 ABDOMINAL PAIN, UNSPECIFIED SITE 02/23/2016 JOSEPH LAU MD Ot 496 CHR [...] Ot 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 02/23/2016 Ot V72.83 EXAM PRE-OPERATIVE NEC 02/23/2016 Ot V74.8 SCREEN-BACTERIAL DIS NEC 02/23/2016 ANDIE IRVIN, SAV Valencia Ot 185 MALIGN NEOPL PROSTATE 02/23/2016 GARY GIBBS APRN Ot 786.2 COUGH 02/23/2016 JOSE D IRVIN, DIPESH E Ot 185 02/23/2016 HERMELINDA IRVIN, KAUSHIK Ot K76.0 FATTY (CHANGE OF) LIVER, NOT ELSEWHERE C 02/23/2016 KAUSHIK SHEN MD, Ot R10.11 RIGHT UPPER QUADRANT PAIN 02/23/2016 KAUSHIK SHEN MD, Ot K27.9 PEPTIC UL, SITE UNSP, UNSP AC OR CHR 02/23/2016 KAUSHIK SHEN MD, Ot Z01.818 ENCOUNTER FOR OTHER PREPROCEDURAL EXAMIN 02/23/2016 KAUSHIK SHEN MD, Ot R10.11 RIGHT UPPER QUADRANT PAIN 02/23/2016 KAUSHIK SHEN MD, Ot K82.8 OTHER SPECIFIED DISEASES OF GALLBLADDER 02/23/2016 KAUSHIK SHEN MD, Ot Z01.812 ENCOUNTER FOR PREPROCEDURAL LABORATORY E 02/23/2016 KAUSHIK SHEN MD, Ot Z11.2 ENCOUNTER FOR [...] IMMUNIZATION 03/07/2016 ELPIDIO BELLE Ot Z79.899 OTHER PAINT FORMULATOR (CURRENT) DRUG THERAPY 03/07/2016 ELPIDIO BELLE Ot Z87.891 PERSONAL HISTORY OF NICOTINE DEPENDENCE 03/07/2016 ELPIDIO BELLE Ot Z96.642 PRESENCE OF LEFT ARTIFICIAL HIP JOINT 06/04/2016 LISSET GRANADO CARD BOXER Ot E78.4 OTHER HYPERLIPIDEMIA 06/04/2016 BAILISSET BOWSER CARD BOXER Ot I10 ESSENTIAL (PRIMARY) HYPERTENSION 06/04/2016 LISSET GRANADO CARD BOXER Ot I25.10 ATHSCL HEART DISEASE OF [place] CORONARY 06/04/2016 LISSET GRANADO CARD BOXER Ot I34.0 NONRHEUMATIC MITRAL (VALVE) INSUFFICIENC 06/04/2016 BAILISSET BOWSER CARD BOXER Ot I35.1 NONRHEUMATIC AORTIC (VALVE) INSUFFICIENC 06/04/2016 LISSET GRANADO CARD BOXER Ot I65.23 OCCLUSION AND STENOSIS OF [place] 06/07/2016 LISSET GRANADO CARD BOXER Ot E78.4 OTHER HYPERLIPIDEMIA 06/07/2016 BAILISSET BOWSER CARD BOXER Ot I10 ESSENTIAL (PRIMARY) HYPERTENSION 06/07/2016 LISSET GRANADO CARD BOXER Ot I25.10 ATHSCL HEART DISEASE OF [place] CORONARY 06/07/2016 LISSET GRANADO CARD BOXER Ot I34.0 NONRHEUMATIC MITRAL (VALVE) INSUFFICIENC 06/07/2016 BAILISSET BOWSER CARD BOXER Ot I35.1 NONRHEUMATIC AORTIC (VALVE) INSUFFICIENC 06/07/2016 LISSET GRANADO CARD BOXER Ot I65.23 OCCLUSION AND STENOSIS OF [place] 09/08/2016 Brokob, Irasema W 401.0 MALIGNANT ESSENTIAL HYPERTENSION 09/08/2016 Brokob, Irasema W 530.81 ESOPHAGEAL REFLUX 09/08/2016 Brokob, Irasema A 786.5 CHEST PAIN 09/08/2016 Brokob, Irasema W I10 ESSENTIAL (PRIMARY) HYPERTENSION 09/08/2016 Brokob, Irasema W K21.9 GASTRO- ESOPHAGEAL REFLUX DISEASE WITHOUT ESOPHAGITIS 09/08/2016 Brokob, Irasema A R07.89 OTHER CHEST PAIN 11/01/2016 RADHA LAU CARD BOXER Ot 424.1 AORTIC VALVE DISORDER 11/01/2016 HERMELINDA IRVIN, KAUSHIK Ot 211.1 BENIGN NEOPLASM STOMACH 11/01/2016 HERMELINDA IRVIN, KAUSHIK Ot 530.11 REFLUX ESOPHAGITIS 11/01/2016 KAUSHIK SHEN [...] NAZARIO DO Ot 401.9 HYPERTENSION NOS 11/01/2016 IWLLIS NAZRAIO DO Ot 414.00 CORON ATHEROSCLER NOS TYPE VESSEL, NATIV 11/01/2016 WILLIS NAZARIO DO Ot 496 CHR AIRWAY OBSTRUCT NEC 11/01/2016 Ot 605 REDUN PREPUCE PHIMOSIS 11/01/2016 Ot 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 11/01/2016 Ot V72.83 EXAM PRE-OPERATIVE NEC 11/01/2016 Ot V74.8 SCREEN-BACTERIAL DIS NEC 11/01/2016 ANDIE IRVIN, SAV Valencia Ot 185 MALIGN NEOPL PROSTATE 11/01/2016 GARY GIBBS APRN Ot 786.2 COUGH 11/01/2016 JOSE D IRVIN, DIPESH Wall Ot 185 11/01/2016 KAUSHIK SHEN MD Ot K76.0 FATTY (CHANGE OF) LIVER, NOT ELSEWHERE C 11/01/2016 KAUSHIK SHEN MD, Ot R10.11 RIGHT UPPER QUADRANT PAIN 11/01/2016 KAUSHIK SHEN MD Ot K27.9 PEPTIC ULC, SITE UNSP, UNSP AC OR CHR 11/01/2016 KAUSHIK SHEN MD Ot Z01.818 ENCOUNTER FOR OTHER PREPROCEDURAL EXAMIN 11/01/2016 KAUSHIK SHEN MD Ot R10.11 RIGHT UPPER QUADRANT PAIN 11/01/2016 KAUSHIK SHEN MD, Ot K82.8 OTHER SPECIFIED DISEASES OF GALLBLADDER 11/01/2016 KAUSHIK SHEN MD, Ot Z01.812 ENCOUNTER FOR PREPROCEDURAL LABORATORY E 11/01/2016 KAUSHIK SHEN MD, Ot Z11.2 ENCOUNTER FOR SCREENING FOR OTHER BACTER 11/01/2016 LISSET GRANADO Ot E78.4 OTHER HYPERLIPIDEMIA 11/01/2016 LISSET GRANADO L CARD BOXER Ot I10 ESSENTIAL (PRIMARY) HYPERTENSION 11/01/2016 LISSET GRANADO CARD BOXER Ot I25.10 ATHSCL HEART DISEASE OF [place] CORONARY 11/01/2016 LISSET GRANADO CARD BOXER Ot I34.0 NONRHEUMATIC MITRAL (VALVE) INSUFFICIENC 11/01/2016 LISSET GRANADO CARD BOXER Ot I35.1 NONRHEUMATIC AORTIC (VALVE) INSUFFICIENC 11/01/2016 LISSET GRANADO CARD BOXER Ot I65.23 OCCLUSION AND STENOSIS OF [place] 11/01/2016 SLOANE LOUIS DO Ot E11.9 TYPE 2 DIABETES MELLITUS WITHOUT COMPLIC 11/01/2016 SLOANE LOUIS DO Ot E78.00 PURE HYPERCHOLESTEROLEMIA, UNSPECIFIED 11/01/2016 SLOANE [...] OF RIGHT ARTIFICIAL SHOULDER ELIEL 11/01/2016 HERIBERTO SLOANE BARON Ot Z96.642 PRESENCE OF LEFT ARTIFICIAL HIP JOINT 11/08/2016 HERIBERTO SLOANE BARON Ot E11.9 TYPE 2 DIABETES MELLITUS WITHOUT COMPLIC 11/08/2016 HERIBERTO SLOANE BARON Ot E78.00 PURE HYPERCHOLESTEROLEMIA, UNSPECIFIED 11/08/2016 HERIBERTO SLOANE BARON Ot G89.29 OTHER CHRONIC PAIN 11/08/2016 HERIBERTO ALIA BARONA K Ot I10 ESSENTIAL (PRIMARY) HYPERTENSION 11/08/2016 HERIBERTO SLOANE K Ot J44.9 CHRONIC OBSTRUCTIVE PULMONARY DISEASE, U 11/08/2016 SLOANE LOUIS DO Ot K21.9 GASTRO-ESOPHAGEAL REFLUX DISEASE WITHOUT 11/08/2016 HERIBERTO SLOANE Cotter Ot M19.90 UNSPECIFIED OSTEOARTHRITIS, UNSPECIFIED 11/08/2016 HERIBERTO SOLANE K Ot M54.5 LOW BACK PAIN 11/08/2016 HERIBERTO SLOANE Cotter Ot Z85.46 PERSONAL HISTORY OF MALIGNANT NEOPLASM O 11/08/2016 EHRIBERTO SLOANE Cotter Ot Z87.19 PERSONAL HISTORY OF OTHER DISEASES OF TH 11/08/2016 HERIBERTO BARON SLOANE Cotter Ot Z87.442 PERSONAL HISTORY OF URINARY CALCULI 11/08/2016 HERIBERTO SLOANE Cotter Ot Z87.891 PERSONAL HISTORY OF NICOTINE DEPENDENCE 11/08/2016 HERIBERTO SLOANE Cotter Ot 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 11/08/2016 HERIBERTO SLOANE BARON Ot Z96.642 PRESENCE OF LEFT ARTIFICIAL HIP [...] INITIAL ENCOUNT 12/13/2016 ELPIDIO BELLE Ot Y92.[address] OF OCCURRENCE OF 12/13/2016 ELPIDIO BELLE Ot Z87.19 PERSONAL HISTORY OF OTHER DISEASES OF 12/13/2016 ELPIDIO BELLE Ot Z87.442 PERSONAL HISTORY OF URINARY CALCULI 12/13/2016 ABEL CHAUDHARY ELPIDIO L Ot Z87.891 PERSONAL HISTORY OF NICOTINE DEPENDENCE 12/13/2016 ELPIDIO BELLE Ot 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( 12/13/2016 ABEL CHAUDHARY ELPIDIO L Ot 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 12/13/2016 ELPIDIO BELLE Ot 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 01/22/2017 Pipo Tripp W 276.51 DEHYDRATION 01/22/2017 Pipo Tripp W 338.18 OTHER ACUTE POSTOPERATIVE PAIN 01/22/2017 Pipo [...] DO, Ot M25.512 PAIN IN LEFT SHOULDER 10/20/2017 ADALBERTO WINKLER Ot E11.9 TYPE 2 DIABETES MELLITUS WITHOUT COMPLIC 10/20/2017 ADALBERTO WINKLER Ot E78.00 PURE HYPERCHOLESTEROLEMIA, UNSPECIFIED 10/20/2017 BERNOT, ADALBERTO Ot I10 ESSENTIAL (PRIMARY) HYPERTENSION 10/20/2017 ADALBERTO WINKLER Ot J44.9 CHRONIC OBSTRUCTIVE PULMONARY DISEASE, U 10/20/2017 VALENCIA WINKLERIS Ot K21.0 GASTRO- ESOPHAGEAL REFLUX DISEASE WITH ES 10/20/2017 VALENCIA WINKLERIS Ot R10.32 LEFT LOWER QUADRANT PAIN 10/20/2017 BERNVALENCIA CASTELLONIS Ot R11.2 NAUSEA WITH VOMITING, UNSPECIFIED 10/20/2017 VALENCIA WINKLERIS Ot Z87.19 PERSONAL HISTORY OF OTHER DISEASES OF TH 10/20/2017 VALENCIA WINKLERIS Ot Z87.442 PERSONAL HISTORY OF URINARY CALCULI 10/20/2017 VALENCIA WINKLERIS Ot Z87.891 PERSONAL HISTORY OF NICOTINE DEPENDENCE 10/20/2017 VALENCIA WINKLERIS Ot Z88.5 ALLERGY STATUS TO NARCOTIC AGENT STATUS 10/20/2017 VALENCIA WINKLERIS Ot Z96.611 PRESENCE OF RIGHT [...] DISEASE, U 10/22/2017 VALENCIA WINKLERIS Ot K21.0 GASTRO- ESOPHAGEAL REFLUX DISEASE WITH ES 10/22/2017 VALENCIA WINKLERIS Ot R10.32 LEFT LOWER QUADRANT PAIN 10/22/2017 VALENCIA WINKLERIS Ot R11.2 NAUSEA WITH VOMITING, UNSPECIFIED 10/22/2017 VALENCIA WINKLERIS Ot Z87.19 PERSONAL HISTORY OF OTHER DISEASES OF 10/22/2017 ADALBERTO WINKLER Ot Z87.442 PERSONAL HISTORY OF URINARY CALCULI 10/22/2017 VALENCIA WINKLERIS Ot Z87.891 PERSONAL HISTORY OF NICOTINE DEPENDENCE 10/22/2017 VALENCIA WINKLREIS Ot Z88.5 ALLERGY STATUS TO NARCOTIC AGENT STATUS 10/22/2017 VALENCIA WINKLERIS Ot 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 10/22/2017 ADALBERTO WINKLER Ot Z96.642 PRESENCE OF LEFT ARTIFICIAL HIP JOINT 10/22/2017 ADALBERTO WINKLER Ot Z96.652 PRESENCE OF LEFT ARTIFICIAL KNEE JOINT 10/24/2017 SCOTTY MEANS APRN Ot E87.1 HYPO-OSMOLALITY AND HYPONATREMIA 10/24/2017 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 Ot J43.9 EMPHYSEMA, UNSPECIFIED 10/24/2017 SCOTTY MEANS APRN Ot R63.4 ABNORMAL WEIGHT LOSS 10/25/2017 RADHA LAU CARD BOXER Ot 424.1 AORTIC VALVE DISORDER 10/25/2017 HERMELINDA IRVIN, KAUSHIK Ot 211.1 BENIGN NEOPLASM STOMACH 10/25/2017 HERMELINDA IRVIN, KAUSHIK Ot 530.11 REFLUX ESOPHAGITIS 10/25/2017 KAUSHIK SHEN MD Ot 535.50 UNSP GASTRITIS GASTRODUODENITIS W/O ME 10/25/2017 KAUSHIK SHEN MD Ot 553.3 DIAPHRAGMATIC HERNIA 10/25/2017 KAUSHIK SHEN MD Ot V72.84 EXAM PRE-OPERATIVE NOS 10/25/2017 SID [...] 796.4 ABN CLINICAL FINDING NEC 10/25/2017 WILLIS NZAARIO DO Ot 272.4 HYPERLIPIDEMIA NEC/NOS 10/25/2017 WILLIS NAZARIO DO Ot 401.9 HYPERTENSION NOS 10/25/2017 WILLIS NAZARIO DO Ot 414.00 CORON ATHEROSCLER NOS TYPE VESSEL, NATIV 10/25/2017 WILLIS NAZARIO DO Ot 496 CHR AIRWAY OBSTRUCT NEC 10/25/2017 Ot 605 REDUN PREPUCE PHIMOSIS 10/25/2017 Ot 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 10/25/2017 Ot V72.83 EXAM PRE-OPERATIVE NEC 10/25/2017 Ot V74.8 SCREEN-BACTERIAL DIS NEC 10/25/2017 ANDIE IRVIN, SAV Valencia Ot 185 MALIGN NEOPL PROSTATE 10/25/2017 GARY GIBBS AUTOMATIC CAR WASH ATTENDANT Ot 786.2 COUGH 10/25/2017 JOSE D IRVIN, DIPESH E Ot 185 10/25/2017 KAUSHIK SHNE MD Ot K76.0 FATTY (CHANGE OF) LIVER, NOT ELSEWHERE C 10/25/2017 KAUSHIK SHEN MD, Ot R10.11 RIGHT UPPER QUADRANT PAIN 10/25/2017 KAUSHIK SHEN MD, Ot K27.9 PEPTIC ULC, SITE UNSP, UNSP AC OR CHR 10/25/2017 KAUSHIK SHEN MD, Ot Z01.818 ENCOUNTER FOR OTHER PREPROCEDURAL EXAMIN 10/25/2017 KAUSHIK SHEN MD, Ot R10.11 RIGHT UPPER QUADRANT PAIN 10/25/2017 KAUSHIK SHEN MD Ot K82.8 OTHER SPECIFIED DISEASES OF GALLBLADDER 10/25/2017 KAUSHIK SHEN MD, Ot Z01.812 ENCOUNTER FOR PREPROCEDURAL LABORATORY E 10/25/2017 KAUSHIK SHEN MD Ot Z11.2 ENCOUNTER FOR SCREENING FOR OTHER BACTER 10/25/2017 LISSET GRANADO CARD BOXER Ot E78.4 OTHER HYPERLIPIDEMIA 10/25/2017 LISSET GRANADO CARD BOXER Ot I10 ESSENTIAL (PRIMARY) HYPERTENSION 10/25/2017 LISSET GRANADO CARD BOXER Ot I25.10 ATHSCL HEART DISEASE OF [place] CORONARY 10/25/2017 LISSET GRANADO CARD BOXER Ot I34.0 NONRHEUMATIC MITRAL (VALVE) INSUFFICIENC 10/25/2017 LISSET GRANADO CARD BOXER Ot I35.1 NONRHEUMATIC AORTIC (VALVE) INSUFFICIENC 10/25/2017 LISSET GRANADO CARD BOXER Ot I65.23 OCCLUSION AND STENOSIS OF BILATERAL [...] I10 ESSENTIAL (PRIMARY) HYPERTENSION 10/25/2017 THOMAS QUIROZ MD, Ot J44.9 CHRONIC OBSTRUCTIVE PULMONARY DISEASE, U 10/25/2017 THOMAS QUIROZ MD Ot K21.9 GASTRO-ESOPHAGEAL REFLUX DISEASE WITHOUT 10/25/2017 THOMAS QUIROZ MD Ot R05 COUGH 10/25/2017 THOMAS QUIROZ MD Ot R07.81 PLEURODYNIA 10/25/2017 THOMAS QUIROZ MD Ot R51 HEADACHE 10/25/2017 THOMAS QUIROZ MD, Ot Z79.52 JAIL (CURRENT) USE OF SYSTEMIC STER 10/25/2017 THOMAS [...] DIABETES MELLITUS WITHOUT COMPLIC 10/28/2017 THOMAS QUIROZ MD, Ot E78.00 PURE HYPERCHOLESTEROLEMIA, UNSPECIFIED 10/28/2017 THOMAS QUIROZ MD, Ot G47.9 SLEEP DISORDER, UNSPECIFIED 10/28/2017 THOMAS QUIROZ MD, Ot I10 ESSENTIAL (PRIMARY) HYPERTENSION 10/28/2017 THOMAS QUIROZ MD, Ot J44.9 CHRONIC OBSTRUCTIVE PULMONARY DISEASE, U 10/28/2017 THOMAS QUIROZ MD, Ot K21.9 GASTRO-ESOPHAGEAL REFLUX DISEASE WITHOUT 10/28/2017 THOMAS QUIROZ MD, Ot R05 COUGH 10/28/2017 THOMAS QUIROZ MD, Ot R07.81 PLEURODYNIA 10/28/2017 THOMAS QUIROZ MD, Ot R51 HEADACHE 10/28/2017 THOMAS QUIROZ MD, Ot Z79.52 PAINT FORMULATOR (CURRENT) USE OF SYSTEMIC STER 10/28/2017 THOMAS QUIROZ MD, Ot Z85.46 PERSONAL HISTORY [...] LEFT ARTIFICIAL SHOULDER ANYI 10/28/2017 THOMAS QUIROZ MD, Ot Z96.642 PRESENCE OF LEFT ARTIFICIAL HIP JOINT 10/28/2017 THOMAS QUIROZ MD Ot Z96.652 PRESENCE OF LEFT ARTIFICIAL KNEE JOINT 10/28/2017 SHEA PAULSON DO Ot M25.512 PAIN IN LEFT SHOULDER 10/28/2017 SHEA PAULSON DO, Ot M25.512 PAIN IN LEFT SHOULDER 10/29/2017 SHEA PAULSON DO Ot M25.512 PAIN IN LEFT SHOULDER 10/31/2017 THOMAS QUIROZ MD Ot E11.9 TYPE 2 DIABETES MELLITUS WITHOUT COMPLIC 10/31/2017 THOMAS QUIROZ MD Ot E78.00 PURE HYPERCHOLESTEROLEMIA, UNSPECIFIED 10/31/2017 THOMAS QUIROZ MD, Ot G47.9 SLEEP DISORDER, UNSPECIFIED 10/31/2017 THOMAS QUIROZ MD Ot I10 ESSENTIAL (PRIMARY) HYPERTENSION 10/31/2017 THOMAS QUIROZ MD, Ot J44.9 CHRONIC OBSTRUCTIVE PULMONARY DISEASE, U 10/31/2017 THOMAS QUIROZ MD, Ot K21.9 GASTRO-ESOPHAGEAL REFLUX DISEASE WITHOUT 10/31/2017 THOMAS QUIROZ MD, Ot R05 COUGH 10/31/2017 THOMAS QUIROZ MD Ot R07.81 PLEURODYNIA 10/31/2017 THOMAS QUIROZ MD, Ot R51 HEADACHE 10/31/2017 THOMAS QUIROZ MD, Ot Z79.52 JAIL (CURRENT) USE OF SYSTEMIC STER 10/31/2017 THOMAS [...] TO OTH DRUG/MEDS/BIOL SUB 10/31/2017 THOMAS QUIROZ MD Ot Z96.612 PRESENCE OF LEFT ARTIFICIAL SHOULDER ANYI 10/31/2017 THOMAS QUIROZ MD, Ot Z96.642 PRESENCE OF LEFT ARTIFICIAL HIP JOINT 10/31/2017 THOMAS QUIROZ MD Ot Z96.652 PRESENCE OF LEFT ARTIFICIAL KNEE JOINT 11/17/2017 Ot E11.9 TYPE 2 DIABETES MELLITUS WITHOUT COMPLIC 11/17/2017 Ot E78.00 PURE HYPERCHOLESTEROLEMIA, UNSPECIFIED 11/17/2017 Ot I10 ESSENTIAL (PRIMARY) HYPERTENSION 11/17/2017 Ot J44.9 CHRONIC OBSTRUCTIVE PULMONARY DISEASE, U 11/17/2017 Ot K21.9 GASTRO-ESOPHAGEAL REFLUX DISEASE WITHOUT 11/17/2017 Ot L08.9 LOCAL INFECTION OF THE SKIN AND SUBCUTAN 11/17/2017 Ot M79.641 PAIN IN RIGHT HAND 11/17/2017 Ot S63.91XA SPRAIN OF UNSP PART OF RIGHT WRIST AND H 11/17/2017 Ot W06.XXXA FALL FROM BED, INITIAL ENCOUNTER 11/17/2017 Ot W22.01XA WALKED INTO WALL, INITIAL ENCOUNTER 11/17/2017 Ot Z79.51 PAINT FORMULATOR (CURRENT) USE OF INHALED STERO 11/17/2017 Ot Z79.52 PAINT FORMULATOR (CURRENT) USE OF SYSTEMIC STER 11/17/2017 Ot Z85.46 PERSONAL HISTORY OF MALIGNANT NEOPLASM O 11/17/2017 Ot Z86.010 PERSONAL HISTORY OF COLONIC POLYPS 11/17/2017 Ot Z87.19 PERSONAL HISTORY OF OTHER DISEASES OF TH 11/17/2017 Ot Z87.442 PERSONAL HISTORY OF URINARY CALCULI 11/17/2017 Ot Z87.891 PERSONAL HISTORY OF NICOTINE DEPENDENCE 11/17/2017 Ot Z88.5 ALLERGY STATUS TO NARCOTIC AGENT STATUS 11/17/2017 Ot Z88.8 ALLERGY STATUS TO OTH DRUG/MEDS/BIOL SUB 11/17/2017 Ot 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( 11/17/2017 Ot 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 11/17/2017 Ot Z96.641 PRESENCE OF RIGHT ARTIFICIAL HIP JOINT 11/17/2017 Ot Z96.652 PRESENCE OF LEFT ARTIFICIAL KNEE JOINT 11/23/2017 Ot E11.9 TYPE 2 DIABETES MELLITUS WITHOUT COMPLIC 11/23/2017 Ot E78.00 PURE HYPERCHOLESTEROLEMIA, UNSPECIFIED 11/23/2017 Ot I10 ESSENTIAL (PRIMARY) HYPERTENSION 11/23/2017 Ot J44.9 CHRONIC OBSTRUCTIVE PULMONARY DISEASE, U 11/23/2017 Ot K21.9 GASTRO-ESOPHAGEAL REFLUX DISEASE WITHOUT 11/23/2017 Ot L08.9 LOCAL INFECTION OF THE SKIN AND SUBCUTAN 11/23/2017 Ot M79.641 PAIN IN RIGHT HAND 11/23/2017 Ot S63.91XA SPRAIN OF UNSP PART OF RIGHT WRIST AND H 11/23/2017 Ot W06.XXXA FALL FROM BED, INITIAL ENCOUNTER 11/23/2017 Ot W22.01XA WALKED INTO WALL, INITIAL ENCOUNTER 11/23/2017 Ot Z79.51 PAINT FORMULATOR (CURRENT) USE OF INHALED STERO 11/23/2017 Ot Z79.52 PAINT FORMULATOR (CURRENT) USE OF SYSTEMIC STER 11/23/2017 Ot Z85.46 [...] Z96.652 PRESENCE OF LEFT ARTIFICIAL KNEE JOINT 12/11/2017 WILLIS NAZARIO DO Ot Z01.818 ENCOUNTER FOR OTHER PREPROCEDURAL EXAMIN 12/12/2017 WILLIS NAZARIO DO Ot G47.33 OBSTRUCTIVE SLEEP APNEA (ADULT) (PEDIATR 12/12/2017 WILLIS NAZARIO DO Ot J44.9 CHRONIC OBSTRUCTIVE PULMONARY DISEASE, U 12/12/2017 WILLIS NAZARIO DO Ot J45.909 UNSPECIFIED ASTHMA, UNCOMPLICATED 12/12/2017 WILLIS NAZARIO DO Ot R05 COUGH 12/12/2017 WILLIS NAZARIO DO Ot Z79.51 JAIL (CURRENT) USE OF INHALED STERO 12/12/2017 WILLIS NAZARIO DO Ot Z87.891 PERSONAL HISTORY OF NICOTINE DEPENDENCE 12/12/2017 SCOTTY MEANS APRN Ot J44.9 CHRONIC OBSTRUCTIVE PULMONARY DISEASE, U 12/17/2017 WILLIS NAZARIO DO Ot Z01.818 ENCOUNTER FOR OTHER PREPROCEDURAL EXAMIN 12/17/2017 SCOTTY MEANS APRN Ot J30.9 ALLERGIC RHINITIS, UNSPECIFIED 12/17/2017 SCOTTY MEANS APRN Ot J44.9 CHRONIC OBSTRUCTIVE PULMONARY DISEASE, U 12/17/2017 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 Ot J98.4 OTHER DISORDERS OF LUNG 12/18/2017 WILLIS NAZARIO DO Ot G47.33 OBSTRUCTIVE SLEEP APNEA (ADULT) (PEDIATR 12/18/2017 WILLIS NAZARIO DO Ot J44.9 CHRONIC OBSTRUCTIVE PULMONARY DISEASE, U 12/18/2017 WILLIS NAZARIO DO M Ot J45.909 UNSPECIFIED ASTHMA, UNCOMPLICATED 12/18/2017 WILLIS NAZARIO DO M Ot R05 COUGH 12/18/2017 WILLIS NAZARIO DO M Ot Z79.51 PAINT FORMULATOR (CURRENT) USE OF INHALED STERO 12/18/2017 WILLIS NAZARIO DO M Ot Z87.891 PERSONAL HISTORY OF NICOTINE DEPENDENCE 12/20/2017 SCOTTY MEANS APRN Ot J44.9 CHRONIC OBSTRUCTIVE PULMONARY DISEASE, U 01/03/2018 SCOTTY MEANS APRN Ot J44.9 CHRONIC OBSTRUCTIVE PULMONARY DISEASE, U 01/03/2018 SCOTTY MEANS APRN Ot J44.9 CHRONIC OBSTRUCTIVE PULMONARY DISEASE, U 01/08/2018 SCOTTY MEANS APRN Ot J44.9 CHRONIC OBSTRUCTIVE PULMONARY DISEASE, U 01/10/2018 SCOTTY MEANS APRN Ot J30.9 ALLERGIC RHINITIS, UNSPECIFIED 01/10/2018 SCOTTY MEANS APRN Ot J44.9 CHRONIC OBSTRUCTIVE PULMONARY DISEASE, U 01/10/2018 SCOTTY MEANS APRN Ot J98.4 OTHER DISORDERS OF LUNG 01/14/2018 WILLIS NAZARIO DO M Ot G47.33 OBSTRUCTIVE SLEEP APNEA (ADULT) (PEDIATR 01/14/2018 WILLIS NAZARIO DO Ot J44.9 CHRONIC OBSTRUCTIVE PULMONARY DISEASE, U 01/14/2018 WILLIS NAZARIO DO M Ot J45.909 UNSPECIFIED ASTHMA, UNCOMPLICATED 01/14/2018 WILLIS NAZARIO DO M Ot R05 COUGH 01/14/2018 WILLIS NAZARIO DO M Ot Z79.51 PAINT FORMULATOR (CURRENT) USE OF INHALED STERO 01/14/2018 WILLIS NAZARIO DO Ot Z87.891 PERSONAL HISTORY OF NICOTINE DEPENDENCE 01/14/2018 SCOTTY MEANS APRN Ot J44.9 CHRONIC OBSTRUCTIVE PULMONARY DISEASE, U 01/15/2018 RADHA LAU CARD BOXER Ot 424.1 AORTIC VALVE DISORDER 01/15/2018 KAUSHIK SHEN MD Ot 211.1 BENIGN NEOPLASM STOMACH 01/15/2018 HERMELINDA IRVIN, KAUSHIK Ot 530.11 REFLUX ESOPHAGITIS 01/15/2018 KAUSHIK SHEN MD Ot 535.50 UNSP GASTRITIS GASTRODUODENITIS W/O ME 01/15/2018 KAUSHIK SHEN MD Ot 553.3 DIAPHRAGMATIC HERNIA 01/15/2018 KAUSHIK SHEN MD Ot V72.84 EXAM PRE-OPERATIVE NOS 01/15/2018 SID IRVIN, JOSEPH Merchant Ot 724.5 BACKACHE NOS 01/15/2018 JOSEPH LAU MD Ot 787.02 NAUSEA ALONE 01/15/2018 SID IRVIN, JOSEPH Merchant Ot 789.00 ABDOMINAL PAIN, UNSPECIFIED SITE 01/15/2018 SID IRVIN, JOSEPH Merchant Ot 496 CHR AIRWAY OBSTRUCT NEC 01/15/2018 JOSEPH LAU MD Ot 496 CHR AIRWAY OBSTRUCT NEC 01/15/2018 JOSEPH LAU MD Ot 786.50 CHEST PAIN NOS 01/15/2018 SID IRVIN, JOSEPH Merchant Ot 796.4 ABN CLINICAL FINDING NEC 01/15/2018 WILLIS NAZARIO DO Ot 272.4 HYPERLIPIDEMIA NEC/NOS 01/15/2018 WILLIS NAZARIO DO Ot 401.9 HYPERTENSION NOS 01/15/2018 WILLIS NAZARIO DO Ot 414.00 CORON ATHEROSCLER NOS TYPE VESSEL, NATIV 01/15/2018 WILLIS NAZARIO DO Ot 496 CHR AIRWAY OBSTRUCT NEC 01/15/2018 Ot 605 REDUN PREPUCE PHIMOSIS 01/15/2018 Ot 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 01/15/2018 Ot V72.83 EXAM PRE-OPERATIVE NEC 01/15/2018 Ot V74.8 SCREEN-BACTERIAL DIS NEC 01/15/2018 ANDIE IRVIN, SAV Valencia Ot 185 MALIGN NEOPL PROSTATE 01/15/2018 GARY GIBBS APRN Ot 786.2 COUGH 01/15/2018 JOSE D IRVIN, DIPESH Wall Ot 185 01/15/2018 HERMELINDA IRVIN, KAUSHIK Ot K76.0 FATTY (CHANGE OF) LIVER, NOT ELSEWHERE C 01/15/2018 KAUSHIK SHEN MD Ot R10.11 RIGHT UPPER QUADRANT PAIN 01/15/2018 KAUSHIK SHEN MD Ot K27.9 PEPTIC ULC, SITE UNSP, UNSP AC OR CHR 01/15/2018 KAUSHIK SHEN MD, Ot Z01.818 ENCOUNTER FOR OTHER PREPROCEDURAL EXAMIN 01/15/2018 KAUSHIK SHEN MD Ot R10.11 RIGHT UPPER QUADRANT PAIN 01/15/2018 KAUSHIK SHEN MD Ot K82.8 OTHER SPECIFIED DISEASES OF GALLBLADDER 01/15/2018 KAUSHIK SHEN MD, Ot Z01.812 ENCOUNTER FOR PREPROCEDURAL LABORATORY E 01/15/2018 KAUSHIK SHEN MD, Ot Z11.2 ENCOUNTER FOR SCREENING FOR OTHER BACTER 01/15/2018 LISSET GRANADO CARD BOXER Ot E78.4 OTHER HYPERLIPIDEMIA 01/15/2018 LISSET GRANADO CARD BOXER Ot I10 ESSENTIAL (PRIMARY) HYPERTENSION 01/15/2018 LISSET GRANADO CARD BOXER Ot I25.10 ATHSCL HEART DISEASE OF [place] CORONARY 01/15/2018 LISSET GRANADO CARD BOXER Ot I34.0 NONRHEUMATIC MITRAL (VALVE) INSUFFICIENC 01/15/2018 LISSET GRANADO CARD BOXER Ot I35.1 NONRHEUMATIC AORTIC (VALVE) INSUFFICIENC 01/15/2018 LISSET GRANADO CARD BOXER Ot I65.23 OCCLUSION AND STENOSIS OF BILATERAL [place] 01/15/2018 SCOTTY MEANS APRN Ot E87.1 HYPO-OSMOLALITY AND HYPONATREMIA 01/15/2018 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 Ot J43.9 EMPHYSEMA, UNSPECIFIED 01/15/2018 SCOTTY MEANS APRN Ot R63.4 ABNORMAL WEIGHT LOSS 01/15/2018 SCOTTY MEANS APRN Ot J44.9 CHRONIC OBSTRUCTIVE PULMONARY DISEASE, U 01/15/2018 SCOTTY MEANS APRN Ot J30.9 ALLERGIC RHINITIS, UNSPECIFIED 01/15/2018 SCOTTY MEANS APRN Ot J44.9 CHRONIC OBSTRUCTIVE PULMONARY DISEASE, U 01/15/2018 SCOTTY MEANS APRN Ot J98.4 OTHER DISORDERS OF LUNG 01/15/2018 SCOTTY MEANS APRN Ot J44.9 CHRONIC OBSTRUCTIVE PULMONARY DISEASE, U 01/15/2018 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 Ot J30.9 ALLERGIC RHINITIS, UNSPECIFIED 01/15/2018 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 Ot J44.9 CHRONIC OBSTRUCTIVE PULMONARY DISEASE, U 01/15/2018 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 Ot J98.4 OTHER DISORDERS OF LUNG 01/16/2018 SCOTTY MAENS AUTOMATIC CAR WASH ATTENDANT Ot J44.9 CHRONIC OBSTRUCTIVE PULMONARY DISEASE, U 01/16/2018 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 Ot R91.1 SOLITARY PULMONARY NODULE 02/02/2018 Contreras, Stefanie-Jose De Jesus W 335.24 PRIMARY LATERAL SCLEROSIS 02/02/2018 Contreras, Stefanie-Jose De Jesus W 564.00 CONSTIPATION, UNSPECIFIED 02/02/2018 Contreras, Stefanie-Jose De Jesus W 781.99 OTHER SYMPTOMS INVOLVING NERVOUS AND MUSCULOSKELETAL SYSTEMS 02/02/2018 Contreras, Stefanie-Jose De Jesus W 783.9 OTHER SYMPTOMS CONCERNING NUTRITION, METABOLISM, AND DEVELOPMENT 02/02/2018 Contreras, Stefanie-Jose De Jesus W G12.29 OTHER MOTOR NEURON DISEASE 02/02/2018 Contreras, Stefanie-Jose De Jesus W K59.09 OTHER CONSTIPATION 02/02/2018 Contreras, Stefanie-Jose De Jesus W R29.818 OTHER SYMPTOMS AND SIGNS INVOLVING THE NERVOUS SYSTEM 02/02/2018 Contreras, Stefanie-Jose De Jesus W R63.0 ANOREXIA 02/02/2018 Contreras, Stefanie-Jose De Jesus W 335.24 PRIMARY LATERAL SCLEROSIS 02/02/2018 Contreras, Stefanie-Jose De Jesus W 564.00 CONSTIPATION, UNSPECIFIED 02/02/2018 Contreras, Stefanie-Jose De Jesus W 781.99 OTHER SYMPTOMS INVOLVING NERVOUS AND MUSCULOSKELETAL SYSTEMS 02/02/2018 Contreras, Stefanie-Jose De Jesus W 783.9 OTHER SYMPTOMS CONCERNING NUTRITION, METABOLISM, AND DEVELOPMENT 02/02/2018 Contreras, Stefanie-Jose De Jesus W G12.29 OTHER MOTOR NEURON DISEASE 02/02/2018 Contreras, Stefanie-Jose De Jesus W K59.09 OTHER CONSTIPATION 02/02/2018 Contreras, Stefanie-Jose De Jesus W R29.818 OTHER SYMPTOMS AND SIGNS INVOLVING THE NERVOUS SYSTEM 02/02/2018 Contreras, Stefanie-Jose De Jesus W R63.0 ANOREXIA 02/09/2018 Contreras, Stefanie-Jose De Jesus W 335.24 PRIMARY LATERAL SCLEROSIS 02/09/2018 Contreras, Stefanie-Jose De Jesus W 564.00 CONSTIPATION, UNSPECIFIED 02/09/2018 Contreras, Stefanie-Jose De Jesus W 781.99 OTHER SYMPTOMS INVOLVING NERVOUS AND MUSCULOSKELETAL SYSTEMS 02/09/2018 Contreras, Stefanie-Jose De Jesus W 783.9 OTHER SYMPTOMS CONCERNING NUTRITION, METABOLISM, AND DEVELOPMENT 02/09/2018 Contreras, Stefanie-Jose De Jesus W G12.29 OTHER MOTOR NEURON DISEASE 02/09/2018 Contreras, Stefanie-Jose De Jesus W K59.09 OTHER CONSTIPATION 02/09/2018 Contreras, Stefanie-Jose De Jesus W R29.818 OTHER SYMPTOMS AND SIGNS INVOLVING THE NERVOUS SYSTEM 02/09/2018 Contreras, Stefanie-Jose De Jesus W R63.0 ANOREXIA 02/09/2018 Contreras, Stefanie-Jose De Jesus W 335.24 PRIMARY LATERAL SCLEROSIS 02/09/2018 Contreras, Stefanie-Jose De Jesus W 564.00 CONSTIPATION, UNSPECIFIED 02/09/2018 Contreras, Stefanie-Jose De Jesus W 781.99 OTHER SYMPTOMS INVOLVING NERVOUS AND MUSCULOSKELETAL SYSTEMS 02/09/2018 Contreras, Stefanie-Jose De Jesus W 783.9 OTHER SYMPTOMS CONCERNING NUTRITION, METABOLISM, AND DEVELOPMENT 02/09/2018 Contreras, Stefanie-Jose De Jesus W G12.29 OTHER MOTOR NEURON DISEASE 02/09/2018 Contreras, Stefanie-Jose De Jesus W K59.09 OTHER CONSTIPATION 02/09/2018 Contreras, Stefanie-Jose De Jesus W R29.818 OTHER SYMPTOMS AND SIGNS INVOLVING THE NERVOUS SYSTEM 02/09/2018 Contreras, Stefanie-Jose De Jesus W R63.0 ANOREXIA 02/13/2018 SCOTTY MEANS APRN Ot J44.9 CHRONIC OBSTRUCTIVE PULMONARY DISEASE, U 02/13/2018 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 Ot R91.1 SOLITARY PULMONARY NODULE 02/18/2018 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 Ot J44.9 CHRONIC OBSTRUCTIVE PULMONARY DISEASE, U 02/18/2018 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 Ot R91.1 SOLITARY PULMONARY NODULE 03/10/2018 LISSET GRANADO CARD BOXER Ot E78.5 HYPERLIPIDEMIA, UNSPECIFIED 03/10/2018 LISSET GRANADO CARD BOXER Ot G47.33 OBSTRUCTIVE SLEEP APNEA (ADULT) (PEDIATR 03/10/2018 LISSET GRANADO CARD BOXER Ot I10 ESSENTIAL (PRIMARY) HYPERTENSION 03/10/2018 LISSET GRANADO CARD BOXER Ot R06.09 OTHER FORMS OF DYSPNEA 03/21/2018 Susan Florez A A 682.6 CELLULITIS AND ABSCESS OF LEG, EXCEPT FOOT 03/21/2018 Susan Florez A A L03.116 CELLULITIS OF LEFT LOWER LIMB 03/28/2018 LISSET GRANADO Ot E78.5 HYPERLIPIDEMIA, UNSPECIFIED 03/28/2018 LISSET GRANADOP Ot G47.33 OBSTRUCTIVE SLEEP APNEA (ADULT) (PEDIATR 03/28/2018 LISSET GRANADO Ot I10 ESSENTIAL (PRIMARY) HYPERTENSION 03/28/2018 LISSET GRANADO Ot R06.09 OTHER FORMS OF DYSPNEA 03/29/2018 MALOU ROONEY MD, Ot E11.9 TYPE 2 DIABETES MELLITUS WITHOUT COMPLIC 03/29/2018 MALOU ROONEY MD, Ot E78.00 PURE HYPERCHOLESTEROLEMIA, UNSPECIFIED 03/29/2018 MALOU ROONEY MD Ot E86.0 DEHYDRATION 03/29/2018 MALOU ROONEY MD, Ot I10 ESSENTIAL (PRIMARY) HYPERTENSION 03/29/2018 MALOU ROONEY MD Ot K21.0 GASTRO-ESOPHAGEAL REFLUX DISEASE WITH ES 03/29/2018 MALOU ROONEY MD Ot M25.551 PAIN IN RIGHT HIP 03/29/2018 MALOU ROONEY MD Ot R33.9 RETENTION OF URINE, UNSPECIFIED 03/29/2018 MALOU ROONEY MD Ot S70.01XA CONTUSION OF RIGHT HIP, INITIAL ENCOUNTE 03/29/2018 MALOU ROONEY MD Ot W18.30XA FALL ON SAME LEVEL, UNSPECIFIED, INITIAL 03/29/2018 MALOU ROONEY MD Ot Z85.46 PERSONAL HISTORY OF MALIGNANT NEOPLASM O 03/29/2018 MALOU ROONEY MD Ot Z87.442 PERSONAL HISTORY OF URINARY CALCULI 03/29/2018 MALOU ROONEY MD, Ot Z87.891 PERSONAL HISTORY OF NICOTINE DEPENDENCE 03/29/2018 MALOU ROONEY MD, Ot Z88.5 ALLERGY STATUS TO NARCOTIC AGENT STATUS 03/29/2018 MALOU ROONEY MD, Ot Z88.7 ALLERGY STATUS TO SERUM AND VACCINE STAT 03/29/2018 MALOU ROONEY MD Ot 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 03/29/2018 MALOU ROONEY MD, Ot Z96.641 PRESENCE OF RIGHT ARTIFICIAL HIP JOINT 03/29/2018 MALOU ROONEY MD, Ot Z96.652 PRESENCE OF LEFT ARTIFICIAL KNEE JOINT 03/30/2018 DELGADO JURADO W 276.1 HYPOSMOLALITY AND/OR HYPONATREMIA 03/30/2018 DELGADO JURADO W 564.00 CONSTIPATION, UNSPECIFIED 03/30/2018 DELGADO JURADO W 780.97 ALTERED MENTAL STATUS 03/30/2018 DELGADO JURADO W 788.20 RETENTION OF URINE, UNSPECIFIED 03/30/2018 DELGADO JURADO W E87.1 HYPO-OSMOLALITY AND HYPONATREMIA 03/30/2018 DELGADO JURADO W K59.00 CONSTIPATION, UNSPECIFIED 03/30/2018 DELGADO JURADO W R33.9 RETENTION OF URINE, UNSPECIFIED 03/30/2018 DELGADO JURADO W R41.82 ALTERED MENTAL STATUS, UNSPECIFIED 04/02/2018 MALOU ROONEY MD Ot E11.9 TYPE 2 DIABETES MELLITUS WITHOUT COMPLIC 04/02/2018 MALOU ROONEY MD, Ot E78.00 PURE HYPERCHOLESTEROLEMIA, UNSPECIFIED 04/02/2018 MALOU ROONEY MD, Ot E86.0 DEHYDRATION 04/02/2018 MALOU ROONEY MD, Ot I10 ESSENTIAL (PRIMARY) HYPERTENSION 04/02/2018 MALOU ROONEY MD Ot K21.0 GASTRO-ESOPHAGEAL REFLUX DISEASE WITH ES 04/02/2018 MALOU ROONEY MD Ot M25.551 PAIN IN RIGHT HIP 04/02/2018 MALOU ROONEY MD, Ot R33.9 RETENTION OF URINE, UNSPECIFIED 04/02/2018 MALOU ROONEY MD, Ot S70.01XA CONTUSION OF RIGHT HIP, INITIAL ENCOUNTE 04/02/2018 MALOU ROONEY MD, Ot W18.30XA FALL ON SAME LEVEL, UNSPECIFIED, INITIAL 04/02/2018 MALOU ROONEY MD, Ot Z85.46 PERSONAL HISTORY OF MALIGNANT NEOPLASM O 04/02/2018 MALOU ROONEY MD, Ot Z87.442 PERSONAL HISTORY OF URINARY CALCULI 04/02/2018 MALOU ROONEY MD, Ot Z87.891 PERSONAL HISTORY OF NICOTINE DEPENDENCE 04/02/2018 MALOU ROONEY MD, Ot Z88.5 ALLERGY STATUS TO NARCOTIC AGENT STATUS 04/02/2018 MALOU ROONEY MD, Ot Z88.7 ALLERGY STATUS TO SERUM AND VACCINE STAT 04/02/2018 MALOU ROONEY MD, Ot 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 04/02/2018 MALOU ROONEY MD, Ot Z96.641 PRESENCE OF RIGHT ARTIFICIAL HIP JOINT 04/02/2018 MALOU ROONEY MD, Ot Z96.652 PRESENCE OF LEFT ARTIFICIAL KNEE JOINT 04/05/2018 LISSET GRANADO CARD BOXER Ot E78.5 HYPERLIPIDEMIA, UNSPECIFIED 04/05/2018 LISSET GRANADO CARD BOXER Ot G47.33 OBSTRUCTIVE SLEEP APNEA (ADULT) (PEDIATR 04/05/2018 LISSET GRANADO CARD BOXER Ot I10 ESSENTIAL (PRIMARY) HYPERTENSION 04/05/2018 LISSET GRANADO CARD BOXER Ot R06.09 OTHER FORMS OF DYSPNEA 05/02/2018 W 263 OTHER AND UNSPECIFIED PROTEIN-CAL[place] MALNUTRITION 05/02/2018 W 401.0 MALIGNANT ESSENTIAL HYPERTENSION 05/02/2018 W 414.01 CORONARY ATHEROSCLEROSIS OF [place] CORONARY ARTERY 05/02/2018 W 427.31 ATRIAL FIBRILLATION 05/02/2018 W 491.20 OBSTRUCTIVE CHRONIC BRONCHITIS, WITHOUT EXACERBATION 05/02/2018 W E46 UNSPECIFIED PROTEIN- [place] MALNUTRITION 05/02/2018 W I10 ESSENTIAL (PRIMARY) HYPERTENSION 05/02/2018 W I25.10 ATHSCL HEART DISEASE OF [place] CORONARY ARTERY W/O ANG PCTRS 05/02/2018 W I48.91 UNSPECIFIED ATRIAL FIBRILLATION 05/02/2018 W J44.9 CHRONIC OBSTRUCTIVE PULMONARY DISEASE, UNSPECIFIED 05/02/2018 W V54.81 05/02/2018 W Z47.1 AFTERCARE FOLLOWING JOINT REPLACEMENT SURGERY 06/25/2018 THOMAS QUIROZ MD Ot E11.9 TYPE 2 DIABETES MELLITUS WITHOUT COMPLIC 06/25/2018 THOMAS QUIROZ MD, Ot G47.30 SLEEP APNEA, UNSPECIFIED 06/25/2018 THOMAS QUIROZ MD Ot G89.29 OTHER CHRONIC PAIN 06/25/2018 THOMAS QUIROZ MD, Ot I10 ESSENTIAL (PRIMARY) HYPERTENSION 06/25/2018 THOMAS QUIROZ MD, Ot J44.9 CHRONIC OBSTRUCTIVE PULMONARY DISEASE, U 06/25/2018 THOMAS QUIROZ MD, Ot K21.9 GASTRO-ESOPHAGEAL REFLUX DISEASE WITHOUT 06/25/2018 THOMAS QUIROZ MD, Ot M10.9 GOUT, UNSPECIFIED 06/25/2018 THOMAS QUIROZ MD, Ot M25.511 PAIN IN RIGHT SHOULDER 06/25/2018 THOMAS QUIROZ MD, Ot M25.512 PAIN IN LEFT SHOULDER 06/25/2018 THOMAS QUIROZ MD, Ot S46.912A STRAIN UNSP MUSC/FASC/TEND AT SHLDR/UP A 06/25/2018 THOMAS QUIROZ MD, Ot X58.XXXA EXPOSURE TO OTHER SPECIFIED FACTORS, INI 06/25/2018 THOMAS QUIROZ MD, Ot Z79.52 PAINT FORMULATOR (CURRENT) USE OF SYSTEMIC STER 06/25/2018 THOMAS QUIROZ MD, Ot Z85.46 PERSONAL HISTORY OF MALIGNANT NEOPLASM O 06/25/2018 THOMAS QUIROZ MD, Ot Z87.19 PERSONAL HISTORY OF OTHER DISEASES OF TH 06/25/2018 THOMAS QUIROZ MD, Ot Z87.891 PERSONAL HISTORY OF NICOTINE DEPENDENCE 06/25/2018 THOMAS QUIROZ MD, Ot Z88.5 ALLERGY STATUS TO NARCOTIC AGENT STATUS 06/25/2018 THOMAS QUIROZ MD, Ot Z88.8 ALLERGY STATUS TO OTH DRUG/MEDS/BIOL SUB 06/25/2018 THOMAS QUIROZ MD, Ot Z92.21 PERSONAL HISTORY OF ANTINEOPLASTIC CHEMO 06/25/2018 THOMAS QUIROZ MD, Ot 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 10/17/2018 SHEA PAULSON DO Ot M25.512 PAIN IN LEFT SHOULDER 10/17/2018 SHEA PAULSON DO Ot Z98.890 OTHER SPECIFIED POSTPROCEDURAL STATES 10/17/2018 SHEA PAULSON DO Ot M25.512 PAIN IN LEFT SHOULDER 10/17/2018 LORENE DO, SHEA F Ot Z98.890 OTHER SPECIFIED POSTPROCEDURAL STATES 10/17/2018 KAUSHIK SHEN MD, Ot Z01.818 ENCOUNTER FOR OTHER PREPROCEDURAL EXAMIN 10/17/2018 KAUSHIK SHEN MD, Ot Z01.818 ENCOUNTER FOR OTHER PREPROCEDURAL EXAMIN 10/22/2018 JOSE D IRVIN, DIPESH E Ot 185 10/30/2018 LORENE DO, SHEA F Ot M25.512 PAIN IN LEFT SHOULDER 10/30/2018 LORENE DO SHEA F Ot Z98.890 OTHER SPECIFIED POSTPROCEDURAL STATES 10/30/2018 LORENE DO, SHEA F Ot M25.512 PAIN IN LEFT SHOULDER 10/30/2018 LORENE DO, SHEA F Ot Z98.890 OTHER SPECIFIED POSTPROCEDURAL STATES 11/03/2018 KAUSHIK SHEN MD, Ot E78.5 HYPERLIPIDEMIA, UNSPECIFIED 11/03/2018 KAUSHIK SHEN MD, Ot G47.30 SLEEP APNEA, UNSPECIFIED 11/03/2018 KAUSHIK SHEN MD, Ot I12.9 HYPERTENSIVE CHRONIC KIDNEY DISEASE W ST 11/03/2018 KAUSHIK SHEN MD, Ot I25.10 ATHSCL HEART DISEASE OF [place] CORONARY 11/03/2018 KAUSHIK SHEN MD, Ot I34.1 NONRHEUMATIC MITRAL (VALVE) PROLAPSE 11/03/2018 KAUSHIK SHEN MD, Ot J44.9 CHRONIC OBSTRUCTIVE PULMONARY DISEASE, U 11/03/2018 KAUSHIK SHEN MD, Ot K21.0 GASTRO-ESOPHAGEAL REFLUX DISEASE WITH ES 11/03/2018 KAUSHIK SHEN MD, Ot K29.70 GASTRITIS, UNSPECIFIED, WITHOUT BLEEDING 11/03/2018 KAUSHIK SHEN MD, Ot K31.84 GASTROPARESIS 11/03/2018 KAUSHIK SHEN MD, Ot K44.9 DIAPHRAGMATIC HERNIA WITHOUT OBSTRUCTION 11/03/2018 KAUSHIK SHEN MD, Ot M10.9 GOUT, UNSPECIFIED 11/03/2018 KAUSHIK SHEN MD, Ot M19.90 UNSPECIFIED OSTEOARTHRITIS, UNSPECIFIED 11/03/2018 KAUSHIK SHEN MD, Ot N18.3 CHRONIC KIDNEY DISEASE, STAGE 3 (MODERAT 11/03/2018 KAUSHIK SHEN MD, Ot Z79.52 PAINT FORMULATOR (CURRENT) USE OF SYSTEMIC STER 11/03/2018 KAUSHIK SHEN MD, Ot Z79.899 OTHER PAINT FORMULATOR (CURRENT) DRUG THERAPY 11/03/2018 KAUSHIK SHEN MD, Ot Z85.46 PERSONAL HISTORY OF MALIGNANT NEOPLASM O 11/03/2018 KAUSHIK SHEN MD, Ot Z87.11 PERSONAL HISTORY OF PEPTIC ULCER DISEASE 11/03/2018 KAUSHIK SHEN MD, Ot Z87.891 PERSONAL HISTORY OF NICOTINE DEPENDENCE 11/03/2018 KAUSHIK SHEN MD, Ot Z88.5 ALLERGY STATUS TO NARCOTIC AGENT STATUS 11/03/2018 KAUSHIK SHEN MD, Ot Z90.49 ACQUIRED ABSENCE OF OTHER SPECIFIED PART 11/03/2018 KAUSHIK SHEN MD, Ot Z92.3 PERSONAL HISTORY OF IRRADIATION 11/03/2018 KAUSHIK SHEN MD, Ot Z96.642 PRESENCE OF LEFT ARTIFICIAL HIP JOINT 11/03/2018 KAUSHIK SHEN MD, Ot Z96.653 PRESENCE OF ARTIFICIAL KNEE JOINT, BILAT 11/04/2018 KAUSHIK SHEN MD, Ot E78.5 HYPERLIPIDEMIA, UNSPECIFIED 11/04/2018 KAUSHIK SHEN MD, Ot G47.30 SLEEP APNEA, UNSPECIFIED 11/04/2018 KAUSHIK SHEN MD, Ot I12.9 HYPERTENSIVE CHRONIC KIDNEY DISEASE W ST 11/04/2018 KAUSHIK SHEN MD, Ot I25.10 ATHSCL HEART DISEASE OF [place] CORONARY 11/04/2018 KAUSHIK SHEN MD, Ot I34.1 NONRHEUMATIC MITRAL (VALVE) PROLAPSE 11/04/2018 KAUSHIK SHEN MD, Ot J44.9 CHRONIC OBSTRUCTIVE PULMONARY DISEASE, U 11/04/2018 KAUSHIK SHEN MD, Ot K21.0 GASTRO-ESOPHAGEAL REFLUX DISEASE WITH ES 11/04/2018 KAUSHIK SHEN MD, Ot K29.70 GASTRITIS, UNSPECIFIED, WITHOUT BLEEDING 11/04/2018 KAUSHIK SHEN MD, Ot K31.84 GASTROPARESIS 11/04/2018 KAUSHIK SHEN MD, Ot K44.9 DIAPHRAGMATIC HERNIA WITHOUT OBSTRUCTION 11/04/2018 KAUSHIK SHEN MD, Ot M10.9 GOUT, UNSPECIFIED 11/04/2018 KAUSHIK SHEN MD, Ot M19.90 UNSPECIFIED OSTEOARTHRITIS, UNSPECIFIED 11/04/2018 KAUSHIK SHEN MD, Ot N18.3 CHRONIC KIDNEY DISEASE, STAGE 3 (MODERAT 11/04/2018 KAUSHIK SHEN MD, Ot Z79.52 JAIL (CURRENT) USE OF SYSTEMIC STER 11/04/2018 KAUSHIK SHEN MD, Ot Z79.899 OTHER PAINT FORMULATOR (CURRENT) DRUG THERAPY 11/04/2018 KAUSHIK SHEN MD, Ot Z85.46 PERSONAL HISTORY OF MALIGNANT NEOPLASM O 11/04/2018 KAUSHIK SHEN MD, Ot Z87.11 PERSONAL HISTORY OF PEPTIC ULCER DISEASE 11/04/2018 KAUSHIK SHEN MD, Ot Z87.891 PERSONAL HISTORY OF NICOTINE DEPENDENCE 11/04/2018 KAUSHIK SHEN MD, Ot Z88.5 ALLERGY STATUS TO NARCOTIC AGENT STATUS 11/04/2018 KAUSHIK SHEN MD, Ot Z90.49 ACQUIRED ABSENCE OF OTHER SPECIFIED PART 11/04/2018 KAUSHIK SHEN MD, Ot Z92.3 PERSONAL HISTORY OF IRRADIATION 11/04/2018 KAUSHIK SHEN MD, Ot Z96.642 PRESENCE OF LEFT ARTIFICIAL HIP JOINT 11/04/2018 KAUSHIK SHEN MD, Ot Z96.653 PRESENCE OF ARTIFICIAL KNEE JOINT, BILAT 11/05/2018 DESTINY AJP Ot M54.5 LOW BACK PAIN 11/05/2018 DESTINY AJ Ot Z98.1 ARTHRODESIS STATUS Procedures There is no data. Results Test [...] Automated erythrocyte mean corpuscular hemoglobin concentration measurement (mass/volume) 35 g/dL 32-36 Automated erythrocyte distribution width ratio 12.7 % 10.0- 14.5 Automated blood platelet count (count/volume) 272 10*3/uL [...] Blood monocytes automated count (number/volume) 0.8 10*3 0.0- 1.0 Automated eosinophil count 0.1 10*3/uL 0.0-0.3 Automated [...] Serum or plasma aspartate aminotransferase measurement (enzymatic activity/volume) 34 U/L 5-34 Serum or plasma alanine aminotransferase measurement (enzymatic activity/volume) 36 U/L 0-55 Serum or plasma protein measurement (mass/volume) 6.7 g/dL 6.4-8.2 Serum or plasma albumin measurement (mass/volume) 4.3 g/dL 3.2-4.5 Magnesium - 11/08/15 14:39 Magnesium 1.8 mg/dL 1.8-2.4 Serum or plasma C reactive protein measurement (mass/volume) - 11/08/15 14:39 Serum or plasma C reactive protein measurement (mass/volume) 0.39 mg/dL 0.00-0.50 Serum or plasma thyrotropin measurement by detection limit <=0.05 miu/l (units/volume) - 11/08/15 14:39 Serum or plasma thyrotropin measurement by detection limit <=0.05 miu/l (units/volume) 0.90 u[iU]/mL 0.35-4.94 Serum or plasma troponin i.cardiac measurement (mass/volume) - 11/08/15 14:39 Serum or plasma troponin i.cardiac measurement (mass/volume) < ng/mL <0.30 Myoglobin, serum - 11/08/15 14:39 Myoglobin, [...] 5-8.5 Urine-Protein Negative Negative Urine-RBC 0-2/HPF Urine-Specific Spring 1.010 1.000-1.030 Urine-WBC 0-2/HPF Urobilinogen 0.2 0.2-1.0 [...] 5-8.5 Urine-Protein 1+ Negative Urine-RBC 0-2/HPF Urine-Specific Spring >=1.030 1.000-1.030 Urine-WBC 0-2/HPF Urobilinogen 1.0 E.U./dL [...] Automated erythrocyte mean corpuscular hemoglobin concentration measurement (mass/volume) 36 g/dL 32-36 Automated erythrocyte distribution width ratio 12.9 % 10.0- 14.5 Automated blood platelet count (count/volume) 285 10*3/uL [...] Blood monocytes automated count (number/volume) 0.8 10*3 0.0- 1.0 Automated eosinophil count 0.1 10*3/uL 0.0-0.3 Automated [...] Serum or plasma aspartate aminotransferase measurement (enzymatic activity/volume) 30 U/L 5-34 Serum or plasma alanine aminotransferase measurement (enzymatic activity/volume) 15 U/L 0-55 Serum or plasma protein measurement (mass/volume) 7.0 g/dL 6.4-8.2 Serum or plasma albumin measurement (mass/volume) 4.4 g/dL 3.2-4.5 Serum or plasma amylase measurement (enzymatic activity/volume) - 10/20/17 21:05 Serum or plasma amylase measurement (enzymatic activity/volume) 62 U/L 25-125 Lipase - 10/20/17 21:05 Lipase 17 U/L 8-78 Sputum Gram stain - 12/12/17 07:44 Sputum Gram stain REPORTED 12-12-2017, 1505. NRG Bacteria identification in bronchial specimen by aerobe culture - 12/12/17 07:44 Bacteria identification in bronchial specimen by aerobe culture NORMAL NRG C FUNGUS SPUTUM FLUID TISSUE - 12/12/17 07:44 FUNGUS REPORT NO FUNGUS GROWTH OBSERVED NRG Sputum Gram stain - 12/12/17 07:45 Sputum Gram stain No bacteria seen NRG Bacteria identification in bronchial specimen by aerobe culture - 12/12/17 07:45 Bacteria identification in bronchial specimen by aerobe culture NG NRG C FUNGUS SPUTUM FLUID TISSUE - 12/12/17 07:45 FUNGUS REPORT NO FUNGUS GROWTH OBSERVED NRG Mycobacterium species detection by organism specific culture - 12/12/17 07:46 QUANTITY OF GROWTH . NRG Mycobacterium species detection by organism specific culture SEE [facility] [id number] - 01/15/18 14:13 Serum or plasma urea nitrogen measurement (mass/volume) 19 mg/dL 7-18 Serum or plasma creatinine measurement (mass/volume) 1.51 mg/dL 0.60-1.30 Serum or plasma urea nitrogen/creatinine mass ratio 13 NRG Serum or plasma creatinine measurement with calculation of estimated glomerular filtration rate 46 NRG Creatinine - 01/30/18 14:58 Creat 1.33 mg/dL 0.50-1.50 eGFR 53 mL/min/1.73m2 >59 Comprehensive Metabolic Panel - 03/21/18 15:25 Albumin 3.6 g/dL 3.6-5.1 ALP 49 U/L 35-130 ALT 12 U/L 6-45 Anion Gap 14 6-14 AST 29 U/L 2-40 BUN 18 mg/dL 5-25 Calcium 9.4 mg/dL 8.3-10.4 Chloride 97 mmol/L 95-114 CO2 24 mEq/L 22-33 Creat 1.15 mg/dL 0.50-1.50 eGFR 62 mL/min/1.73m2 >59 Globulin 2.8 g/dL 2.3-3.5 Glucose 137 mg/dL 70-110 Osmo 275 280-295 Potassium 3.8 mmol/L 3.5-5.3 Sodium 131 mmol/L 134-148 TBil 0.9 mg/dL 0.2-1.2 TP 6.4 g/dL 6.0-8.3 Comprehensive metabolic panel - 03/29/18 09:30 Serum or plasma sodium measurement (moles/volume) 127 mmol/L 135-145 Serum or plasma potassium measurement (moles/volume) 4.4 mmol/L 3.6-5.0 Serum or plasma chloride measurement (moles/volume) 94 mmol/L 98-107 Carbon dioxide 22 mmol/L 21-32 Serum or plasma anion gap determination (moles/volume) 11 mmol/L 5-14 Serum or plasma urea nitrogen measurement (mass/volume) 39 mg/dL 7-18 Serum or plasma creatinine measurement (mass/volume) 1.78 mg/dL 0.60-1.30 Serum or plasma urea nitrogen/creatinine mass ratio 22 NRG Serum or plasma creatinine measurement with calculation of estimated glomerular filtration rate 38 NRG Serum or plasma glucose measurement (mass/volume) 122 mg/dL 70-105 Serum or plasma calcium measurement (mass/volume) 10.1 mg/dL 8.5-10.1 Serum or plasma total bilirubin measurement (mass/volume) 0.7 mg/dL 0.1-1.0 Serum or plasma alkaline phosphatase measurement (enzymatic activity/volume) 58 U/L 40-136 Serum or plasma aspartate aminotransferase measurement (enzymatic activity/volume) 53 U/L 5-34 Serum or plasma alanine aminotransferase measurement (enzymatic activity/volume) 25 U/L 0-55 Serum or plasma protein measurement (mass/volume) 6.8 g/dL 6.4-8.2 Serum or plasma albumin measurement (mass/volume) 3.6 g/dL 3.2-4.5 CALCIUM CORRECTED 10.4 mg/dL 8.5-10.1 Complete blood count (CBC) with automated white blood cell (WBC) differential - 03/29/18 09:30 Blood leukocytes automated count (number/volume) 12.8 10*3/uL 4.3-11.0 Blood erythrocytes automated count (number/volume) 3.72 10*6/uL 4.35-5.85 Venous blood hemoglobin measurement (mass/volume) 10.8 g/dL 13.3-17.7 Blood hematocrit (volume fraction) 31 % 40-54 Automated erythrocyte mean corpuscular volume 84 [foz_us] 80-99 Automated erythrocyte mean corpuscular hemoglobin (mass per erythrocyte) 29 pg 25-34 Automated erythrocyte mean corpuscular hemoglobin concentration measurement (mass/volume) 35 g/dL 32-36 Automated erythrocyte distribution width ratio 13.0 % 10.0- 14.5 Automated blood platelet count (count/volume) 624 10*3/uL 130-400 Automated blood platelet mean volume measurement 9.1 [foz_us] 7.4-10.4 Automated blood neutrophils/100 leukocytes 82 % 42-75 Automated blood lymphocytes/100 leukocytes 6 % 12-44 Blood monocytes/100 leukocytes 10 % 0-12 Automated blood eosinophils/100 leukocytes 1 % 0-10 Automated blood basophils/100 leukocytes 0 % 0-10 Blood neutrophils automated count (number/volume) 10.5 10*3 1.8-7.8 Blood lymphocytes automated count (number/volume) 0.8 10*3 1.0-4.0 Blood monocytes automated count (number/volume) 1.3 10*3 0.0- 1.0 Automated eosinophil count 0.2 10*3/uL 0.0-0.3 Automated blood basophil count (count/volume) 0.1 10*3/uL 0.0-0.1 Blood manual differential performed detection - 03/29/18 09:30 Blood monocytes/100 leukocytes 9 % NRG Manual blood segmented neutrophils/100 leukocytes 79 % NRG Manual blood lymphocytes/100 leukocytes 11 % NRG Manual eosinophils/100 leukocytes in nose 1 % NRG Blood erythrocyte morphology finding identification NORMAL NRG Blood platelet adequacy detection by light microscopy INCREASED NRG Bacterial blood culture - 03/29/18 09:30 Bacterial blood culture NG NRG Blood lactic acid measurement (moles/volume) - 03/29/18 09:58 Blood lactic acid measurement (moles/volume) 0.84 mmol/L 0.50- 2.00 Complete urinalysis with reflex to culture - 03/29/18 10:52 Urine color determination YELLOW NRG Urine clarity determination CLEAR NRG Urine pH measurement by test strip 6.5 5-9 Specific gravity of urine by test strip 1.010 1.016-1.022 Urine protein assay by test strip, semi-quantitative NEGATIVE NEGATIVE Urine glucose detection by automated test strip NEGATIVE NEGATIVE Erythrocytes detection in urine sediment by light microscopy NEGATIVE NEGATIVE Urine ketones detection by automated test strip NEGATIVE NEGATIVE Urine nitrite detection by test strip NEGATIVE NEGATIVE Urine total bilirubin detection by test strip NEGATIVE NEGATIVE Urine urobilinogen measurement by automated test strip (mass/volume) NORMAL NORMAL Urine leukocyte esterase detection by dipstick NEGATIVE NEGATIVE Automated urine sediment erythrocyte count by microscopy (number/high power field) NONE NRG Automated urine sediment leukocyte count by microscopy (number/high power field) NONE NRG Bacteria detection in urine sediment by light microscopy NEGATIVE NRG Crystals detection in urine sediment by light microscopy NONE NRG Casts detection in urine sediment by light microscopy NONE NRG Mucus detection in urine sediment by light microscopy NEGATIVE NRG Complete urinalysis with reflex to culture NO NRG Bacterial blood culture - 03/29/18 12:25 Bacterial blood culture NG NRG Cardiac Panel - 03/30/18 11:27 CK 122 U/L 26-174 CK-MB 3.1 ng/ml 0.0-9.2 Myoglobin 215.3 ng/ml 1.6-154.9 Troponin <0.020 ng/mL 0.0-0.4 Thyroid Stimulating Hormone - 03/30/18 11:27 TSH 0.68 mIU/mL 0.32-5.00 Urinalysis - 03/30/18 12:35 Icotest N/A Negative Urine Volume Urine Volume Sufficient (10mL) Urine Yeast No Yeast present Urine-Appearance Clear Clear Urine-Bacteria Negative Urine-Bilirubin Negative Negative Urine-Blood Trace-lysed Negative Urine-Color Yellow Colorless-Lt. Yellow Urine-Glucose Negative Negative Urine-Ketones Negative Negative Urine-Leukocytes Negative Negative Urine-Nitrite Negative Negative Urine-Other Urine Saved if Culture Needed (48hrs from time of collection) Urine-pH 7.0 5-8.5 Urine-Protein 1+ Negative Urine-RBC Negative Urine-Specific Spring 1.020 1.000-1.030 Urine-WBC Rare/HPF Urobilinogen 0.2 E.U./dL 0.2-1.0 Urine Culture - 03/30/18 15:17 PRELIM CULTURE RESULTS No Growth 24 hours FINAL CULTURE RESULTS No Growth 48 hours MEDIA PLATED Setup at 15:25 on 03/30/2018 CULTURE SOURCE URINE PALOMINO Encounters ACCT No. Visit Date/Time Discharge Status Pt. Type Provider Facility Loc./Unit Complaint [id number] 11/03/2018 14:46:00 11/03/2018 23:59:59 CLS Outpatient MADAIDESTINY CARD BOXER [facility] RAD LOW BACK PAIN M54.5 [id number] 11/03/2018 13:45:00 11/03/2018 23:59:59 CLS Outpatient SHEA PAULSON DO F [facility] REHAB LT SHOULDER PAIN [id number] 10/22/2018 09:34:00 10/22/2018 12:45:00 DIS Outpatient KAUSHIK SHEN MD [facility] ENDO REFLUX/N V [id number] 10/17/2018 11:30:00 10/17/2018 13:41:00 DIS Outpatient KAUSHIK SHEN MD [facility] PREOP EGD [id number] 06/25/2018 18:43:00 06/25/2018 20:44:00 DIS Emergency RICHIE IRVIN, THOMAS Fairchild [facility] ER SHOULDER PAIN [id number] 03/29/2018 08:40:00 03/29/2018 13:50:00 DIS Emergency NEVIN IRVIN, MALOU D [facility] ER FALL [id number] 03/07/2018 06:57:00 03/07/2018 23:59:59 CLS Outpatient LISSET GRANADO CARD BOXER [facility] CARD GREGORY,JENAE,HTN [id number] 01/15/2018 13:59:00 01/15/2018 23:59:59 CLS Outpatient SCOTTY MEANS APRN [facility] RAD LUNG NODULE [id number] 12/19/2017 13:58:00 12/19/2017 23:59:59 CLS 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 [facility] RAD SHORTNESS OF BREATH DYSPNEA [id number] 12/16/2017 10:19:00 12/16/2017 23:59:59 CLS Outpatient SCOTTY MEANS APRN [facility] RAD ASTHMA,COPD [id number] 12/12/2017 06:40:00 12/12/2017 09:03:00 DIS Outpatient WILLIS NAZARIO DO [facility] ENDO COPD [id number] 12/11/2017 05:40:00 12/11/2017 13:30:00 DIS Outpatient WILLIS NAZARIO DO [facility] PREOP BRONCHOSCOPY [id number] 12/10/2017 10:20:00 12/10/2017 23:59:59 CLS Outpatient SCOTTY MEANS APRN [facility] LAB J43.8 [id number] 10/04/2017 15:25:00 10/28/2017 14:55:00 DIS Outpatient SHEA PAULSON DO [facility] REHAB L ROTATOR CUFF REPAIR [id number] 10/25/2017 12:44:00 10/25/2017 15:50:00 DIS Emergency RICHIE IRVIN, THOMAS Fairchild [facility] ER COUGH [id number] 10/23/2017 11:33:00 10/23/2017 23:59:59 CLS Outpatient SCOTTY MEANS APRN [facility] RAD COPD [id number] 10/20/2017 20:37:00 10/20/2017 23:52:00 DIS Emergency ADALBERTO WINKLER [facility] ER THROWING UP,COUGH,POSS BRONCHITIS [id number] 12/07/2016 21:22:00 12/07/2016 23:53:00 DIS Emergency ELPIDIO BELLE [facility] ER FALL/KNEE AND HIP PAIN/R SHOULDER PAIN [id number] 12/04/2016 21:13:00 12/04/2016 22:33:00 DIS Emergency ELPIDIO BELLE [facility] ER RT HIP AND KNEE PAIN [id number] 11/01/2016 21:56:00 11/01/2016 22:50:00 DIS Emergency SLOANE LOUIS DO [facility] ER LOWER BACK/LT HIP PAIN [id number] 05/10/2016 10:14:00 05/10/2016 23:59:59 CLS Outpatient JUNEMAGUE LISSET Marcello KHALIL [facility] CARD CAD,CAROTIUD ARTERIAL DISEASE [id number] 02/22/2016 20:10:00 02/22/2016 23:05:00 DIS Emergency ELPIDIO BELLE [facility] ER FALL [id number] 11/08/2015 14:22:00 11/08/2015 16:53:00 DIS Emergency THOMAS QUIROZ MD [facility] ER CHEST PAIN [id number] 10/09/2015 23:29:00 10/10/2015 00:52:00 DIS Emergency THOMAS QUIROZ MD [facility] ER RT HIP PAIN [id number] 08/22/2015 00:52:00 08/22/2015 01:36:00 DIS Emergency MALOU ROONEY MD [facility] ER BACK PAIN [id number] 06/11/2015 00:02:00 06/11/2015 00:50:00 DIS Emergency ALEX LAU MD [facility] ER L PINKY PAIN [id number] 05/01/2015 20:27:00 05/01/2015 21:39:00 DIS Emergency BROOKS DIA APRN [facility] ER VOMITING BLOOD POST GALL BLADDER REMOVAL [id number] 04/28/2015 06:00:00 04/28/2015 23:59:59 CLS Outpatient KAUSHIK SHEN MD [facility] SDC BILARY DYSKINESIA [id number] 04/25/2015 07:50:00 04/25/2015 23:59:59 CLS Outpatient KAUSHIK SHEN MD [facility] PREOP BILIARY DYSKINESIA [id number] 03/28/2015 09:39:00 03/28/2015 23:59:59 CLS Outpatient KAUSHIK SHEN MD [facility] CARD RUQ PAIN [id number] 03/17/2015 06:36:00 03/17/2015 23:59:59 CLS Outpatient KAUSHIK SHEN MD [facility] RAD RIGHT UPPER QUADRANT PAIN [id number] 03/16/2015 09:39:00 03/16/2015 12:10:00 DIS Outpatient KAUSHIK SHEN MD [facility] SDC PUD [id number] 03/14/2015 05:48:00 03/14/2015 23:59:59 CLS Outpatient KAUSHIK SHEN MD [facility] PREOP EGD [id number] 01/06/2015 01:36:00 01/06/2015 23:59:59 CLS Preadmit DIPESH JEFFERY MD [facility] ONC [id number] 01/05/2015 09:41:00 01/05/2015 00:01:00 DIS Outpatient DIPESH JEFFERY MD [facility] ONC [id number] 11/16/2014 07:05:00 11/16/2014 14:40:00 DIS Outpatient ARNOLD IRVIN FACC, ANDERSON FALCON CCDS [facility] CATH ANGINA CAD FATIGUE [id number] 11/02/2014 14:18:00 11/02/2014 00:01:00 DIS Outpatient DIPESH JEFFERY MD [facility] ONC [id number] 07/29/2014 12:26:00 07/29/2014 23:59:59 CLS Outpatient GARY GIBBS APRN [facility] RAD COUGH,INHALANTS OF TOXIN [id number] 07/12/2014 12:03:00 07/12/2014 23:59:59 CLS Outpatient SAV CHAVES MD [facility] CARD PROSTATE CA [id number] 06/30/2014 14:12:00 06/30/2014 23:59:59 CLS Outpatient WILLIS NAZARIO DO [facility] RAD COPD,CAD,HYPERTENSION,HYPERLIPIDEMIA [id number] 03/15/2014 14:15:00 03/15/2014 23:59:59 CLS Outpatient JOSEPH LAU MD [facility] RT COPD [id number] 03/12/2014 13:58:00 03/12/2014 23:59:59 CLS Outpatient JOSEPH LAU MD [facility] CARD POSITIVE D-DIMER [id number] 03/11/2014 19:56:00 03/11/2014 22:29:00 DIS Emergency TITO COLE DO [facility] ER CHEST PAIN [id number] 03/10/2014 15:27:00 03/10/2014 23:59:59 CLS Outpatient JOSEPH LAU MD [facility] RAD COLD [id number] 12/30/2013 15:02:00 12/30/2013 23:59:59 CLS Outpatient JOSEPH LAU MD [facility] RAD NAUSEA,ABD BACK PAIN [id number] 12/20/2013 05:40:00 12/20/2013 06:44:00 DIS Emergency TITO COLE DO [facility] ER WOUND CHECK [id number] 12/19/2013 13:41:00 12/19/2013 14:56:00 DIS Emergency ELPIDIO BELLE [facility] ER R HAND SWELLING [id number] 08/19/2013 07:56:00 08/19/2013 23:59:59 CLS Outpatient KAUSHIK SHEN MD [facility] SDC VOMITING;WEIGHT LOSS [id number] 08/13/2013 10:18:00 08/13/2013 23:59:59 CLS Outpatient KAUSHIK SHEN MD [facility] PREOP VOMITING;WEIGHT LOSS [id number] 12/26/2012 19:22:00 12/26/2012 21:32:00 DIS Emergency SLOANE LOUIS DO [facility] ER FALL [id number] 12/18/2012 09:20:00 12/18/2012 23:59:59 CLS Outpatient RADHA LAU [facility] CARD AORTIC REGURGITATION [id number] 10/23/2012 11:24:00 10/23/2012 14:05:00 DIS Emergency THOMAS QUIROZ MD [facility] ER N/V [id number] 10/01/2012 13:35:00 10/01/2012 15:47:00 DIS Emergency ISATU MCDONALD DO [facility] ER FALL/LEFT HIP PAIN [id number] 11/17/2017 17:12:00 Document Registration [id number] 06/15/2014 07:00:00 Document Registration [id number] 06/11/2014 09:42:00 Document Registration [id number] 07/19/2012 18:45:00 Document Registration [id number] 03/30/2018 11:08:00 03/30/2018 17:13:00 DIS Outpatient DELGADO JURADO [facility] ER [id number] 03/21/2018 15:01:00 03/21/2018 18:30:00 DIS Outpatient Susan Florez [facility] ER [id number] 02/09/2018 09:03:00 02/09/2018 23:59:00 DIS Outpatient Ben StevenJose De Jesus [id number] 02/02/2018 09:19:00 02/02/2018 23:59:00 DIS Outpatient Ben StefanieJanet [id number] 01/30/2018 14:48:00 01/30/2018 23:59:00 DIS Outpatient Ben StevenJose De Jesus [id number] 04/16/2017 12:54:00 04/16/2017 23:59:00 DIS Outpatient Erich ContrerasnJanet [id number] 01/22/2017 12:30:00 01/22/2017 16:05:00 DIS Outpatient JoseeSuny [facility] ER [id number] 11/25/2016 13:24:00 11/25/2016 16:59:00 DIS Outpatient JoseeSuny [facility] ER [id number] 11/23/2016 15:49:00 11/23/2016 23:59:00 DIS Outpatient Erich ContrerasnJanet [id number] 11/08/2016 15:52:00 11/08/2016 23:59:00 DIS Outpatient James Contreras [id number] 11/01/2016 19:06:00 11/01/2016 23:59:00 DIS Outpatient Ben StevenJose De Jesus [id number] 09/08/2016 15:18:00 09/08/2016 20:00:00 DIS Outpatient Irasema Kirby [facility] ER [id number] 03/27/2016 17:45:00 03/27/2016 23:59:00 DIS Outpatient Contreras, StefanieDominikJose De Jesus [id number] 03/24/2018 11:01:58 Document Registration [id number] 04/11/2017 15:58:21 Document Registration [id number] 02/20/2017 08:19:10 Document Registration [id number] 09/08/2016 17:05:49 Document Registration [id number] 03/27/2016 17:45:00 Document Registration [id number] 01/05/2015 09:41:27 ACT Document Registration
--- NOTE | 2018-11-07 10:05 | ED Fall/Injury ---
General Stated Complaint: FALL Source: patient, EMS History of Present Illness Date Seen by Provider: Nov 07, 2018 Time Seen by Provider: 09:48 Initial Comments PT ARRIVES VIA EMS, WITH CERVICAL COLLAR IN PLACE PT STATES HE WAS WALKING OUT OF HIS HOUSE, AND SLIPPED ON WET PORCH STEPS AND FELL FORWARD DOWN 4 STEPS LANDED ON KNEES, THEN ONTO FACE/HEAD WAS WITNESSED BY , WHOM HE WAS TALKING TO AT THE TIME NO LOSS OF CONSCIOUSNESS C/O NECK PAIN C/O HEAD PAIN C/O BILATERAL KNEE PAIN--HAS HAD BILATERAL KNEE REPLACEMENTS IN PAST NO PARESTHESIAS OR MOTOR DEFICITS + NAUSEA, NO VOMITING NO CHEST PAIN NO VISION CHANGES NO DIZZINESS PT HAS COPD, NO CHANGE IN CHRONIC SHORTNESS OF BREATH--DOES NOT WEAR HOME O2 PT HAS CHRONIC BACK PAIN, AND HAS HAD BACK SURGERY, BUT DENIES ANY INCREASE IN CHRONIC BACK PAIN NO HIP PAIN--HAS HAD BILATERAL HIP REPLACEMENTS NO ARM PAIN PT HAS BEEN NPO AND HAS NOT TAKEN ANY OF HIS ROUTINE MEDICATIONS, HE WAS ON HIS WAY TO GET FAST[place] [facility] WHEN HE FELL. PCP: DR. CRUZ ENGLISH COMPOSITION INSTRUCTOR:DR VILLATORO ORTHOPEDIC SURGEON: DR. BONILLA IN AREA Allergies and Home Medications Allergies Coded Allergies: morphine (Verified Allergy, Severe, HIVES, N/V,pt has rec. Lortab in the past w/o issue, 10/22/18) fentanyl (Verified Allergy, Mild, RESTLESS, 12/07/16) Home Medications Albuterol Sulfate 1 Puff Puff, 2 PUFF IH Q4H PRN for WHEEZING, (Reported) 1 PUFF = 90 MCG Allopurinol 300 Mg Tablet, 150 MG PO DAILY, (Reported) take 1/2 of 300mg tab Amitriptyline HCl 100 Mg Tablet, 100 MG PO HS, (Reported) Amlodipine Besylate 10 Mg Tablet, 10 MG PO DAILY, (Reported) Atorvastatin Calcium 40 Mg Tablet, 40 MG PO HS, (Reported) Budesonide/Formoterol Fumarate 10.2 Gm Hfa.aer.ad, 2 PUFF IH BID, (Reported) Buspirone HCl 10 Mg Tablet, 5-10 MG PO BID, (Reported) TAKE 1/2 OF 10MG TAB IN AM TAKE 1 WHOLE TAB AT HS Cetirizine HCl 10 Mg Tablet, 10 MG PO DAILY, (Reported) Cyclobenzaprine HCl 10 Mg Tablet, 10 MG PO Q8H Prescribed by: SLOANE LOUIS on 11/07/18 1117 Dexlansoprazole 60 Mg Cap.dr.bp, 60 MG PO DAILY, (Reported) Ezetimibe 10 Mg Tablet, 10 MG PO DAILY, (Reported) Fluticasone/Umeclidin/Vilanter 1 Each Blst.w.dev, 1 EACH IH DAILY, (Reported) Lisinopril 40 Mg Tablet, 40 MG PO DAILY, (Reported) Metoprolol Succinate 100 Mg Tab.er.24h, 100 MG PO DAILY, (Reported) Montelukast Sodium 10 Mg Tablet, 10 MG PO HS, (Reported) Multivit-Min/FA/Lycopen/Lutein 1 Each Tablet, 1 EACH PO DAILY, (Reported) Ondansetron 8 Mg Tab.rapdis, 8 MG PO Q6H Prescribed by: SLOANE LOUIS on 11/07/18 111 Tamsulosin HCl 0.4 Mg Cap.er.24h, 0.4 MG PO DAILY, (Reported) Patient Home Medication List Home Medication List Reviewed: Yes Review of Systems Review of Systems Constitutional: no symptoms reported Eyes: No Symptoms Reported Ears, Nose, Mouth, Throat: no symptoms reported Cardiovascular: no symptoms reported Gastrointestinal: see HPI; No abdominal pain; nausea; No vomiting Genitourinary: no symptoms reported Musculoskeletal: see HPI Skin: no symptoms reported Psychiatric/Neurological: See HPI Past Sxurrmj-Fadusn-Jecyxu Hx Patient Social History Alcohol Use: Denies Use Recreational Drug Use: No Smoking Status: Former Smoker Type Used: Cigarettes Former Smoker, Quit: Nov 06, 1990 2nd Hand Smoke Exposure: No Recent Hopitalizations: No Immunizations Up To Date Tetanus Booster (TDap): Less than 5yrs Date of Pneumonia Vaccine: Feb 06, 2015 Date of Influenza Vaccine: Jan 24, 2016 Seasonal Allergies Seasonal Allergies: No Past Medical History Surgeries: Yes (BILATERAL HIP REPLACEMENTS; BILATERAL TOTAL KNEE REPLACEMENTS; BILATERAL SHOULDER SURGERES; STOMACH SURGERY X 3; BACK SURGERY X 3; TURP/ CANCER SURGERY ON PROSTATE) Abdominal, Joint Replacement, Orthopedic, Transurethral Resection Respiratory: Yes Asthma, Sleep Apnea, COPD Currently Using CPAP: Yes Currently Using BIPAP: No Cardiac: Yes (MITRAL VALVE PROLAPSE) High Cholesterol, Hypertension, Valvular Heart Disease Neurological: No Reproductive Disorders: No Sexually Transmitted Disease: No HIV/AIDS: No Genitourinary: Yes ("small kidney"; TURP) Prostate Problems Gastrointestinal: Yes (fatty liver, hx colon obstruction x2) Gastroesophageal Reflux, Liver Disease/Jaundice, Obstructive Bowel, Hiatal Hernia, Ulcer Musculoskeletal: Yes (CHRONIC BILATERAL HIP PAIN, BILATERAL KNEE PAIN, NECK AND BACK PAIN ) Degenerate Disk Disease, Arthritis, Back Injury, Chronic Back Pain, Gout Endocrine: Yes Diabetes, Non-Insulin dep HEENT: No Loss of Vision: Bilateral Hearing Impairment: Denies Cancer: Yes Prostate Did You Recieve Any Treatments: Yes What Type of Treatment Did You: Radiation, Surgical Intervention Psychosocial: Yes Anxiety, Depression Integumentary: No Blood Disorders: No Adverse Reaction/Blood Tranf: No (HAS HAD BLOOD WITH NO REACTION) Family Medical History No Pertinent Family Hx, Other Conditions/Hx Physical Exam Vital Signs Vital Signs - First Documented 11/07/18 09:51 Temp 97.9 Pulse 93 Resp 14 B/P (MAP) 179/102 (127) Pulse Ox 94 O2 Delivery Room Air Capillary Refill : Height, Weight, BMI Height: 5'9.00" Weight: 181lbs. 0.0oz. 82.819571yy; 26.7 BMI Method:Stated General Appearance: WD/WN, no apparent distress Neck: limited range of motion, tender lateral, tender midline Cardiovascular: regular rate, rhythm, no edema, no JVD, no murmur Respiratory: chest non-tender, normal breath sounds, no respiratory distress, no accessory muscle use Peripheral Pulses: 2+ Dorsalis Pedis (R), 2+ Left Dors-Pedis (L) Gastrointestinal: non tender, soft Back: no CVA tenderness, no vertebral tenderness Extremities: other (BILATERAL HIP AND KNEE TENDERNESS, NO EXTERNAL EVIDENCE OF TRAUMA TO THESE AREAS. 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 II-XII nml as tested, no motor/sensory deficits, alert, oriented x 3 Skin: normal color, warm/dry Pepito Coma Score Best Eye Response: (4) Open Spontaneously Best Verbal Response: (5) Oriented Best Motor Response: (6) Obeys Commands Pepito Total: 15 Progress/Results/Core Measures Results/Orders Lab Results Laboratory Tests Test 11/07/18 09:53 Range/Units White Blood Count 6.3 4.3-11.0 10^3/uL Red Blood Count 4.69 4.35-5.85 10^6/uL Hemoglobin 13.1 L 13.3-17.7 G/DL Hematocrit 39 L 40-54 % Mean Corpuscular Volume 83 80-99 FL Mean Corpuscular Hemoglobin 28 25-34 PG Mean Corpuscular Hemoglobin Concent 34 32-36 G/DL Red Cell Distribution Width 14.4 10.0-14.5 % Platelet Count 247 130-400 10^3/uL Mean Platelet Volume 9.6 7.4-10.4 FL Neutrophils (%) (Auto) 54 42-75 % Lymphocytes (%) (Auto) 32 12-44 % Monocytes (%) (Auto) 11 0-12 % Eosinophils (%) (Auto) 3 0-10 % Basophils (%) (Auto) 1 0-10 % Neutrophils # (Auto) 3.4 1.8-7.8 X 10^3 Lymphocytes # (Auto) 2.0 1.0-4.0 X 10^3 Monocytes # (Auto) 0.7 0.0-1.0 X 10^3 Eosinophils # (Auto) 0.2 0.0-0.3 10^3/uL Basophils # (Auto) 0.1 0.0-0.1 10^3/uL Prothrombin Time 14.0 12.2-14.7 SEC INR Comment 1.0 0.8-1.4 Activated Partial Thromboplast Time 30 24-35 SEC Sodium Level 138 135-145 MMOL/L Potassium Level 4.4 3.6-5.0 MMOL/L Chloride Level 104 98-107 MMOL/L Carbon Dioxide Level 25 21-32 MMOL/L Anion Gap 9 5-14 MMOL/L Blood Urea Nitrogen 15 7-18 MG/DL Creatinine 1.06 0.60-1.30 MG/DL Estimat Glomerular Filtration Rate > 60 BUN/Creatinine Ratio 14 Glucose Level 109 H 70-105 MG/DL Calcium Level 10.0 8.5-10.1 MG/DL Corrected Calcium 10.0 8.5-10.1 MG/DL Magnesium Level 1.8 1.8-2.4 MG/DL Total Bilirubin 0.6 0.1-1.0 MG/DL Aspartate Amino Transf (AST/SGOT) 23 5-34 U/L Alanine Aminotransferase (ALT/SGPT) 19 0-55 U/L Alkaline Phosphatase 80 40-136 U/L Total Protein 6.8 6.4-8.2 GM/DL Albumin 4.0 3.2-4.5 GM/DL My Orders Orders - SLOANE LOUIS DO Ed Iv/Invasive Line Start (11/07/18 09:58) Monitor-Rhythm Ecg Trace Only (11/07/18 09:58) Ct Head/Face/Cervical Wo (11/07/18 09:58) Chest 1 View, Ap/Pa Only (11/07/18 09:58) Pelvis (11/07/18 09:58) Cbc With Automated Diff (11/07/18 09:58) Comprehensive Metabolic Panel (11/07/18 09:58) Magnesium (11/07/18 09:58) Protime With Inr (11/07/18 09:58) Partial Thromboplastin Time (11/07/18 09:58) Ondansetron Injection (Zofran Injectio (11/07/18 10:15) Knee, 3 Views, Bilateral (11/07/18 10:02) Ketorolac Injection (Toradol Injection) (11/07/18 10:45) Cyclobenzaprine Tablet (Flexeril Tablet) (11/07/18 10:45) Hydrocodone/Apap 10/325 Tablet (Lortab 1 (11/07/18 11:15) Medications Given in ED Current Medications Medications Dose Ordered Sig/Allison Route Start Time Stop Time Status Last Admin Dose Admin Acetaminophen/ Hydrocodone Bitart 1 ea ONCE ONCE PO 11/07/18 11:15 11/07/18 11:16 DC 11/07/18 11:24 1 EA Ketorolac Tromethamine 30 mg ONCE ONCE IVP 11/07/18 10:45 11/07/18 10:46 DC 11/07/18 10:43 30 MG Ondansetron HCl 8 mg ONCE ONCE IVP 11/07/18 10:15 11/07/18 10:16 DC 11/07/18 10:41 8 MG Vital Signs/I&O 11/07/18 11/07/18 09:51 11:25 Temp 97.9 Pulse 93 79 Resp 14 17 B/P (MAP) 179/102 (127) 148/81 (103) Pulse Ox 94 98 O2 Delivery Room Air Room Air Progress Progress Note : Progress Note CERVICAL COLLAR REMOVED AFTER RECEIVING RADIOLOGIST REPORT OF NO ACUTE PROCESS, SEVERE DEGENERATIVE CHANGES. PAIN AND NAUSEA IMPROVED AT DISMISSAL BP DOWN TO 140'S/80'S AT DISMISSAL. PT NOW ADMITS TO DAILY HYDROCODONE AND IBUPROFEN USE ( NOT ON HIS LIST OF MEDICATIONS ) FOR HIS CHRONIC PAIN PT DOES HAVE A WALKER AT HOME, FROM PREVIOUS KNEE AND HIP SURGERIES, BUT DOES NOT USE IT NOW. Diagnostic Imaging Comments CT HEAD/MAXILLOFACIALS/CERVICAL SPINE--NO ACUTE PROCESS, SEVERE DEGENERATIVE CHANGES OF CERVICAL SPINE--PER RADIOLOGIST REPORT AT 1034 CXR--NO ACUTE PROCESS, PROMINENT BILATERAL PERIHILAR REGIONS PELVIS/BILATERAL HIPS--NO ACUTE PROCESS, HARDWARE INTACT BILATERAL KNEES--NO ACUTE PROCESS, HARDWARE INTACT PER RADIOLOGIST REPORTS TAT 1105 Reviewed: Reviewed by Me Departure Impression Primary Impression: S/P FALL DOWN STAIRS Additional Impressions: Facial contusion Minor head injury without loss of consciousness CERVICAL SPINE STRAIN BILATERAL KNEE CONTUSIONS EXACERBATION OF CHRONIC PAIN Disposition: HOME, SELF-CARE Condition: Stable Departure-Patient Inst. Referrals: MAGGI CRUZ MD (PCP) Primary Care Physician Patient Instructions: CHRONIC PAIN, Cervical Muscle Strain (DC), Contusion (DC), Going Up and Down Curbs or Stairs With a Walker or Crutches, Knee Pain (DC), Minor Head Injury (DC), Preventing Falls in the Older Adult Add. Discharge Instructions: USE YOUR WALKER AT ALL TIMES TAKE YOUR HOME HYDROCODONE PRESCRIBED FOR PAIN TAKE IBUPROFEN UP TO 800 MG 4 TIMES A DAY NEEDED FOR PAIN ICE TO SORE AREAS AT 20 MINUTE INTERVALS FOLLOW UP WITH YOUR DR NEXT WEEK FOR FURTHER CARE Scripts Ondansetron (Ondansetron Odt) 8 Mg Tab.rapdis 8 MG PO Q6H for Nausea/Vomiting, #10 TAB Prov: SLOANE LOUIS DO 11/07/18 Cyclobenzaprine HCl (Cyclobenzaprine HCl) 10 Mg Tablet 10 MG PO Q8H, #15 TAB Prov: SLOANE LOUIS DO 11/07/18 SLOANE LOUIS DO Nov 07, 2018 10:05
[2018-11-07 10:07] LABS: BASOPHILS # (AUTO) 0.1 10^3/uL (0.0-0.1); BASOPHILS % (AUTO) 1 % (0-10); EOSINOPHILS # (AUTO) 0.2 10^3/uL (0.0-0.3); EOSINOPHILS % (AUTO) 3 % (0-10); HEMATOCRIT 39 % (40-54); HEMOGLOBIN 13.1 G/DL (13.3-17.7); LYMPHOCYTES % (AUTO) 32 % (12-44); MEAN CORPUSCULAR HEMOGLOBIN 28 PG (25-34); MEAN CORPUSCULAR HGB CONC 34 G/DL (32-36); MEAN CORPUSCULAR VOLUME 83 FL (80-99); MEAN PLATELET VOLUME 9.6 FL (7.4-10.4); MONOCYTES # (AUTO) 0.7 X 10^3 (0.0-1.0); MONOCYTES % (AUTO) 11 % (0-12); NEUTROPHILS # (AUTO) 3.4 X 10^3 (1.8-7.8); NEUTROPHILS % (AUTO) 54 % (42-75); PLATELET COUNT 247 10^3/uL (130-400); RED CELL DISTRIBUTION WIDTH 14.4 % (10.0-14.5); WHITE BLOOD COUNT 6.3 10^3/uL (4.3-11.0)
[2018-11-07] MEDS ORDERED: ONDANSETRON 4 MG/2 ML (SDV) Z0FRAN IVP ONE (10:15)
[2018-11-07 10:25] LABS: ALANINE AMINOTRANSFERASE 19 U/L (0-55); ALKALINE PHOSPHATASE 80 U/L (40-136); BILIRUBIN,TOTAL 0.6 MG/DL (0.1-1.0); BUN/CREATININE RATIO 14; CARBON DIOXIDE 25 MMOL/L (21-32); CHLORIDE 104 MMOL/L (98-107); CREATININE SERUM 1.06 MG/DL (0.60-1.30); GFR ESTIMATED > 60; GLUCOSE 109 MG/DL (70-105); MAGNESIUM 1.8 MG/DL (1.8-2.4); POTASSIUM 4.4 MMOL/L (3.6-5.0); SODIUM 138 MMOL/L (135-145); TOTAL PROTEIN 6.8 GM/DL (6.4-8.2)
--- NOTE | 2018-11-07 10:29 | Diagnostic Imaging Report ---
PROCEDURE: CT head, face, and cervical spine without contrast. TECHNIQUE: Multiple contiguous axial images were obtained through the head, neck, and facial bones without the use of intravenous contrast. Sagittal and coronal reformations through the cervical spine and facial bones were also performed. Auto Exposure Controls were utilized during the CT exam to meet ALARA standards for radiation dose reduction. INDICATION: Fall with head and neck pain as well as left facial pain. Comparison is made with prior head CT from 03/29/2018. CT head: Ventricles and sulci are within normal limits. No sulcal effacement or midline shift is detected. No acute intra-axial or extra-axial hemorrhage is detected. Cisterns are patent. Visualized paranasal sinuses are clear. IMPRESSION: No acute intracranial process is detected. CT cervical spine: Curvature of the cervical spine is normal. There is minimal anterolisthesis of C5 on C6. Severe degenerative disc disease C5-C6 and C6-C7 levels is seen with disc space narrowing and marginal spurring. No fractures are seen. Prevertebral tissues are normal. Odontoid is intact. IMPRESSION: Cervical spondylosis. No acute bony abnormality is detected. CT face: The mandible appears intact. The zygomatic arches are intact. Maxillary sinus gaines, nasal bones and orbital gaines appear to be intact. No facial fracture is seen. Minimal mucosal thickening of the right maxillary sinus is noted. IMPRESSION: No facial bone fracture is detected. Dictated by: Dictated on workstation # [id number]
[2018-11-07] MEDS ORDERED: KETOROLAC 30 MG/ML VIAL IVP ONE (10:45)
[2018-11-07] MEDS ORDERED: CYCLOBENZAPRINE 10 MG (FLEXERIL) TAB PO SCH (10:45)
--- NOTE | 2018-11-07 10:45 | Diagnostic Imaging Report ---
Patient History: Fall. Chest pain. Technique: Single frontal view of the chest Comparison: 12/19/2017 FINDINGS: The lung volumes are normal. No focal consolidation is seen. No large pleural effusion or pneumothorax is seen. The cardiac silhouette is stable in size. There is prominence of the bilateral perihilar regions with convex margins. No acute osseous abnormality is seen. Reversed right shoulder arthroplasty changes are noted. IMPRESSION: Prominent bilateral perihilar regions. This can be seen with mediastinal and hilar lymphadenopathy. Recommend CT chest to further evaluate. Dictated by: Dictated on workstation # [id number]
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
--- NOTE | 2018-11-07 11:01 | Diagnostic Imaging Report ---
CLINICAL HISTORY: Fall. Left knee pain. COMPARISON: 03/29/2018 TECHNIQUE: 6 views of the bilateral knees. 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 The tibial and femoral components appear well seated without evidence of hardware loosening. No periprosthetic fracture. No acute fracture or dislocation is seen in the knees. No large joint effusion. Soft tissues are unremarkable. IMPRESSION: No acute osseous abnormalities in the bilateral knees. Dictated by: Dictated on workstation # [id number]
[2018-11-07] MEDS ORDERED: HYDROcodone/APAP 10 MG/325 MG (LORTAB) TAB PO ONE (11:15)
[2018-11-07] MEDS ORDERED: CYCL10TA9 PO (11:17)
[2018-11-07] MEDS ORDERED: ONDA8TAB13 PO (11:17)
[2018-11-07 11:25] VITALS: BP 148/81
== END 2018-11-07 11:24 | disposition home or self-care (01) ==
LOC: EDUNIT# 09:51 → ER 09:52
DX: S09.90XA Unspecified injury of head, initial encounter (principal); S16.1XXA Strain of muscle, fascia and tendon at neck level, initial encounter; S00.83XA Contusion of other part of head, initial encounter; S80.01XA Contusion of right knee, initial encounter; S80.02XA Contusion of left knee, initial encounter; G89.29 Other chronic pain; I10 Essential (primary) hypertension; E11.9 Type 2 diabetes mellitus without complications; F32.9 Major depressive disorder, single episode, unspecified; F41.9 Anxiety disorder, unspecified; E78.00 Pure hypercholesterolemia, unspecified; J44.9 Chronic obstructive pulmonary disease, unspecified; K21.9 Gastro-esophageal reflux disease without esophagitis; G47.30 Sleep apnea, unspecified; M10.9 Gout, unspecified; Z98.890 Other specified postprocedural states; Z85.46 Personal history of malignant neoplasm of prostate; Z99.89 Dependence on other enabling machines and devices; Z88.5 Allergy status to narcotic agent; Z79.51 Long term (current) use of inhaled steroids; Z87.891 Personal history of nicotine dependence; Z96.643 Presence of artificial hip joint, bilateral; Z96.653 Presence of artificial knee joint, bilateral; W10.8XXA Fall (on) (from) other stairs and steps, initial encounter
CPT/HCPCS: 36415; 70450; 70486; 71045; 72125; 72170; 80053; 83735; 85025; 85610; 85730; 93041; 96374; 96375

== ENCOUNTER 2018-11-25 13:20 | Outpatient (RCR) | payer MEDICARE, MEDICAID ==
[~2018-11-25 13:20] MED LIST changes: +ONDA8TAB13 PO
[2018-11-26] MEDS ORDERED: ALBU18HF2 INH (10:24)
[2018-11-26] MEDS ORDERED: TAMS0.4C98 PO (10:24)
[2018-11-26] MEDS ORDERED: BACL10TA PO (10:24)
[2018-11-26] MEDS ORDERED: ONDA8TAB13 PO (10:24)
[2018-11-26] MEDS ORDERED: SENN-141 PO (10:24)
[2018-11-26] MEDS ORDERED: BUSP10TA95 PO (10:24)
[2018-11-26] MEDS ORDERED: CYCL10TA9 PO (10:40)
[2018-11-26] MEDS ORDERED: FLUT9.9S NS (10:41)
[2018-11-26] MEDS ORDERED: HYDR-3820 PO (10:47)
[2018-12-06] MEDS ORDERED: CEPH-507 PO (15:03)
== END 2018-12-10 09:18 | disposition home or self-care (01) ==
PROVIDERS: ATTEND Orthopaedic Surgery
DX: M25.512 Pain in left shoulder (principal); Z98.890 Other specified postprocedural states

== ENCOUNTER 2018-11-25 16:09 | Observation (INO) | payer MEDICARE, MEDICAID ==
[~2018-11-25] VITALS: Ht 175.3 cm; Wt 85.4 kg
[2018-11-25] MEDS ORDERED: HYDROmorphone 2 MG/ML VIAL (DILAUDID) IV ONE ×4 (16:30→20:15)
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
[2018-11-25 16:33] LABS: HEMOGLOBIN 12.4 G/DL (13.3-17.7); MEAN PLATELET VOLUME 10.3 FL (7.4-10.4); WHITE BLOOD COUNT 8.6 10^3/uL (4.3-11.0)
[2018-11-25 16:51] LABS: ALANINE AMINOTRANSFERASE 21 U/L (0-55); ALBUMIN 3.9 GM/DL (3.2-4.5); ALKALINE PHOSPHATASE 98 U/L (40-136); BILIRUBIN,DIRECT 0.2 MG/DL (0.0-0.3); BILIRUBIN,INDIRECT 0.3 MG/DL; BILIRUBIN,TOTAL 0.5 MG/DL (0.1-1.0); BUN/CREATININE RATIO 16; CALCIUM 9.3 MG/DL (8.5-10.1); CARBON DIOXIDE 23 MMOL/L (21-32); CHLORIDE 102 MMOL/L (98-107); CREATININE SERUM 0.99 MG/DL (0.60-1.30); GFR ESTIMATED > 60; GLUCOSE 112 MG/DL (70-105); POTASSIUM 4.5 MMOL/L (3.6-5.0); SODIUM 134 MMOL/L (135-145); TOTAL PROTEIN 6.7 GM/DL (6.4-8.2)
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
[2018-11-25] MEDS ORDERED: TETANUS,DIPTH,PERTUSS P/F (BOOSTRIX) 0.5 ML VIAL IM ONE (17:00)
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
--- NOTE | 2018-11-25 18:13 | NUR ---
pain has decreased to 4/10
--- NOTE | 2018-11-25 19:09 | NUR ---
PT IS TEARY EYED ET STATING HE DOESN'T CARE ABOUT HIS PAIN HE IS JUST WORRIED ABOUT HIS . TEMP IS 99.8 BP 150/74 r 19 p120 sp02 100 OX
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
[2018-11-25] MEDS ORDERED: HYDROmorphone 2 MG/ML VIAL (DILAUDID) ONE (20:02)
[2018-11-25] MEDS ORDERED: HYDROcodone/APAP 5 MG/325 MG (LORTAB) TAB ONE (20:03)
[2018-11-25 20:14] LABS: BILIRUBIN,URINE NEGATIVE (NEGATIVE); CLARITY,URINE CLEAR; COLOR,URINE YELLOW; GLUCOSE, URINE (UA) NEGATIVE (NEGATIVE); KETONES,URINE NEGATIVE (NEGATIVE); LEUKOCYTE ESTERASE ,URINE NEGATIVE (NEGATIVE); NITRITE,URINE NEGATIVE (NEGATIVE); PH,URINE 6.5 (5-9); PROTEIN,URINE NEGATIVE (NEGATIVE); UROBILINOGEN,URINE NORMAL (NORMAL)
[2018-11-25] MEDS ORDERED: HYDROcodone/APAP 5 MG/325 MG (LORTAB) TAB PO ONE (20:15)
[2018-11-25 20:22] LABS: BACTERIA,URINE TRACE /HPF
[2018-11-25 21:00] VITALS: BP 151/99
[2018-11-25] MEDS ORDERED: NS IV 1000 ML 1,000 ML ONE (21:11)
[2018-11-25] MEDS ORDERED: ONDANSETRON 4 MG/2 ML (SDV) Z0FRAN IV PRN (21:45)
[2018-11-25 22:00] VITALS: BP 120/69
[2018-11-25] MEDS: NS IV 1000 ML 1,000 ML IV SCH (22:20)
[2018-11-25] MEDS: HYDROmorphone 2 MG/ML VIAL (DILAUDID) IV PRN (22:20)
[2018-11-25 23:00] VITALS: BP 126/84
[2018-11-26] VITALS: BP 144/95
[2018-11-26] MEDS: HYDROcodone/APAP 5 MG/325 MG (LORTAB) TAB PO PRN ×3 (00:25→10:16)
[2018-11-26 01:00] VITALS: BP 138/109
[2018-11-26] MEDS: HYDROmorphone 2 MG/ML VIAL (DILAUDID) IV PRN ×3 (01:09→08:22)
[2018-11-26] MEDS ORDERED: CATHETER FLUSH 10 ML SYR IV PRN (01:15)
[2018-11-26 02:00] VITALS: BP 128/79
[2018-11-26] MEDS: RT-ALBUTEROL/IPRATROPIUM 3 ML (DUONEB) VIAL INH SCH ×3 (03:21→10:41)
[2018-11-26 03:53] LABS: BASOPHILS % (AUTO) 0 % (0-10); EOSINOPHILS # (AUTO) 0.1 10^3/uL (0.0-0.3); EOSINOPHILS % (AUTO) 2 % (0-10); HEMATOCRIT 41 % (40-54); HEMOGLOBIN 13.4 G/DL (13.3-17.7); LYMPHOCYTES # (AUTO) 1.8 X 10^3 (1.0-4.0); LYMPHOCYTES % (AUTO) 24 % (12-44); MEAN CORPUSCULAR HEMOGLOBIN 27 PG (25-34); MEAN CORPUSCULAR HGB CONC 33 G/DL (32-36); MEAN CORPUSCULAR VOLUME 83 FL (80-99); MEAN PLATELET VOLUME 10.5 FL (7.4-10.4); MONOCYTES # (AUTO) 0.9 X 10^3 (0.0-1.0); MONOCYTES % (AUTO) 12 % (0-12); NEUTROPHILS # (AUTO) 4.6 X 10^3 (1.8-7.8); NEUTROPHILS % (AUTO) 61 % (42-75); PLATELET COUNT 196 10^3/uL (130-400); RED CELL DISTRIBUTION WIDTH 14.3 % (10.0-14.5); WHITE BLOOD COUNT 7.5 10^3/uL (4.3-11.0)
[2018-11-26 04:24] LABS: ALANINE AMINOTRANSFERASE 18 U/L (0-55); ALKALINE PHOSPHATASE 107 U/L (40-136); BILIRUBIN,TOTAL 0.5 MG/DL (0.1-1.0); BUN/CREATININE RATIO 14; CALCIUM 9.9 MG/DL (8.5-10.1); CARBON DIOXIDE 23 MMOL/L (21-32); CHLORIDE 105 MMOL/L (98-107); CREATININE SERUM 0.98 MG/DL (0.60-1.30); GFR ESTIMATED > 60; GLUCOSE 110 MG/DL (70-105); POTASSIUM 4.4 MMOL/L (3.6-5.0); SODIUM 140 MMOL/L (135-145); TOTAL PROTEIN 7.1 GM/DL (6.4-8.2)
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
[2018-11-26] MEDS ORDERED: CATHETER FLUSH 10 ML SYR IV SCH (06:00)
[2018-11-26 08:00] VITALS: BP 153/90
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
--- NOTE | 2018-11-26 10:00 | NUR ---
Pt back to room from visiting in ED.
[2018-11-26] MEDS ORDERED: ALBU18HF2 INH (10:24)
[2018-11-26] MEDS ORDERED: ONDA8TAB13 PO (10:24)
[2018-11-26] MEDS ORDERED: BUSP10TA95 PO (10:24)
[2018-11-26] MEDS ORDERED: SENN-141 PO (10:24)
[2018-11-26] MEDS ORDERED: BACL10TA PO (10:24)
[2018-11-26] MEDS ORDERED: TAMS0.4C98 PO (10:24)
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
--- NOTE | 2018-11-26 10:39 | Discharge Inst-Surgical ---
Discharge Inst-Surgical Depart Medication/Instructions New, Converted or Re-Newed RX: RX Given to Pt/Family Patient Instructions Follow up Appt: Follow up with primary care, can call me for any problems. Instructions: No lifting greater than 20 pounds. No strenuous activity. May shower in 24 hours, no tub bath or soaking. Use incentive spirometer at home as directed. No Smoking Symptoms to Report: Appetite Changes, Extremity Discoloration, Numbness/Tingling, Swelling Increased, Bleeding Excessive, Eyesight Changes, Pain Increased, Urine Color Change, Constipation(Persistent), Fever over 101 degree F, Pain/Pressure in chest, Urinating Difficulty, Cough Up/Vomit Blood, Heart Beat Irreg/Pounding, Pain/Pressure in jaw, Cramps in feet or legs, Lightheadedness, Pain/Pressure in shoulder, Diarrhea(Persistent), Memory Changes Suddenly, Questions/Concerns, Weight gain consecutive days, Dizziness/Fainting, Nausea/Vomiting, Shortness of Breath, Weight gain over 2 pounds If questions or concerns contact your physician Or seek help at emergency department. Activity Activity as Tolerated: Yes Driving Instructions: No Driving/Refer to Dr. Cabral Discharge Diet: No Restrictions Diet After 24 Hours: Clear Liquid if Nauseous If Any Problems/Questions/Issu: Contact Your Physician, Go to Emergency Room Skin/Wound Care Infection Signs and Symptoms: Temperature Above 101 F Bathing Instructions: XIN Hebert DO Nov 26, 2018 10:39
[2018-11-26] MEDS ORDERED: CYCL10TA9 PO (10:40)
[2018-11-26] MEDS ORDERED: FLUT9.9S NS (10:41)
[2018-11-26] MEDS ORDERED: HYDR-3820 PO (10:47)
[2018-11-26] MEDS: NS IV 1000 ML 1,000 ML IV SCH (11:05)
--- NOTE | 2018-11-26 11:07 | NUR ---
PATIENT STATES HIS HELPED HIM WITH HIS MEDICATIONS AND AT THE MOMENT HE IS UNABLE TO ANSWER DETAILED QUESTIONS REGARDING HIS MEDS. HE HAS A LIST WITH HIM AND I COMPARED THAT WITH THE EXT MED HX. HIS LIST STATES TRELEGY HOWEVER HE MORE RECENTLY FILLED SYMBICORT. I PUT SYMBICORT ON THE MED REC BUT NOT THE TRELEGY. HE IS PAST DUE FOR REFILL ON HIS METOPROLOL BUT STATES HE IS SUPPOSED TO BE TAKING IT. I NOTED THE PAST DUE FILL DATE. HE IS ALSO PAST DUE FOR REFILL ON ZETIA ACCORDING TO THE EXT MED HX, IT IS NOT ON HIS LIST THEREFORE I DID NOT INCLUDE IT ON THE MED REC AT THIS TIME. AMLODIPINE HAS BEEN FILLED HOWEVER IT IS MARKED OUT ON HIS LIST, HE STATES HE IS NO LONGER TAKING IT. HE STATES HE HAS FLEXERIL AND BACLOFEN, HE DOES NOT TAKE THEM TOGETHER, HE ALTERNATES.
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
== END 2018-11-26 10:37 | disposition home or self-care (01) ==
LOC: EDUNIT# 16:09 → ER 16:10 → UNDOADMOB 19:57 → ICU 19:57 → UNDODISOB 11-26 11:23
PROVIDERS: ADMIT Surgery; ATTEND Surgery
DX: S22.42XA Multiple fractures of ribs, left side, initial encounter for closed fracture (principal); S60.212A Contusion of left wrist, initial encounter; M54.9 Dorsalgia, unspecified; M19.90 Unspecified osteoarthritis, unspecified site; M10.9 Gout, unspecified; J44.9 Chronic obstructive pulmonary disease, unspecified; G47.30 Sleep apnea, unspecified; E78.00 Pure hypercholesterolemia, unspecified; I11.9 Hypertensive heart disease without heart failure; K21.9 Gastro-esophageal reflux disease without esophagitis; G89.29 Other chronic pain; E11.9 Type 2 diabetes mellitus without complications; H53.133 Sudden visual loss, bilateral; F41.9 Anxiety disorder, unspecified; F32.9 Major depressive disorder, single episode, unspecified; R00.0 Tachycardia, unspecified; Z88.6 Allergy status to analgesic agent; Z79.899 Other long term (current) drug therapy; Z87.891 Personal history of nicotine dependence; V89.2XXA Person injured in unspecified motor-vehicle accident, traffic, initial encounter
CPT/HCPCS: 36415; 70450; 71045; 71260; 72125; 72170; 73090; 73130; 74177; 80048; 80053; 80076; 80320; 81000; 85025; 85027; 86850; 86900; 86901; 90471; 90715; 93005; 93041; 94640; 94664; 96374; 96376; 99291

== ENCOUNTER 2018-12-06 02:30 | Emergency (ER) | payer MEDICARE, MEDICAID ==
[~2018-12-06 02:30] MED LIST changes: +ALBU18HF2 INH; +FLUT9.9S NS; +HYDR-3820 PO; +SENN-141 PO; +TAMS0.4C98 PO
[2018-12-06] MEDS ORDERED: CEPH-507 PO (15:03)
== END 2018-12-06 02:36 | disposition left against medical advice (07) ==
LOC: EDUNIT# 02:30 → ER 02:30
DX: T78.40XA Allergy, unspecified, initial encounter (principal)

== ENCOUNTER 2018-12-06 13:20 | Emergency (ER) | payer MEDICARE, MEDICAID ==
[~2018-12-06] VITALS: Ht 175.3 cm; Wt 78.0 kg
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
[2018-12-06 13:58] LABS: BASOPHILS % (AUTO) 1 % (0-10); EOSINOPHILS # (AUTO) 0.2 10^3/uL (0.0-0.3); EOSINOPHILS % (AUTO) 3 % (0-10); HEMATOCRIT 34 % (40-54); HEMOGLOBIN 11.1 G/DL (13.3-17.7); LYMPHOCYTES # (AUTO) 1.1 X 10^3 (1.0-4.0); LYMPHOCYTES % (AUTO) 21 % (12-44); MEAN CORPUSCULAR HEMOGLOBIN 27 PG (25-34); MEAN CORPUSCULAR HGB CONC 33 G/DL (32-36); MEAN CORPUSCULAR VOLUME 83 FL (80-99); MEAN PLATELET VOLUME 9.2 FL (7.4-10.4); MONOCYTES # (AUTO) 0.6 X 10^3 (0.0-1.0); MONOCYTES % (AUTO) 12 % (0-12); NEUTROPHILS # (AUTO) 3.3 X 10^3 (1.8-7.8); NEUTROPHILS % (AUTO) 63 % (42-75); PLATELET COUNT 279 10^3/uL (130-400); RED CELL DISTRIBUTION WIDTH 14.1 % (10.0-14.5); WHITE BLOOD COUNT 5.3 10^3/uL (4.3-11.0)
[2018-12-06 14:17] LABS: ALANINE AMINOTRANSFERASE 33 U/L (0-55); ALBUMIN 3.6 GM/DL (3.2-4.5); ALKALINE PHOSPHATASE 115 U/L (40-136); BILIRUBIN,TOTAL 0.5 MG/DL (0.1-1.0); BUN/CREATININE RATIO 13; CALCIUM 8.9 MG/DL (8.5-10.1); CARBON DIOXIDE 23 MMOL/L (21-32); CHLORIDE 107 MMOL/L (98-107); CREATININE SERUM 0.95 MG/DL (0.60-1.30); GFR ESTIMATED > 60; GLUCOSE 106 MG/DL (70-105); POTASSIUM 3.9 MMOL/L (3.6-5.0); SODIUM 139 MMOL/L (135-145); TOTAL PROTEIN 6.5 GM/DL (6.4-8.2)
[2018-12-06 14:39] LABS: FREE T4 (FREE THYROXINE) 0.99 NG/DL (0.70-1.48)
[2018-12-06] MEDS ORDERED: CEPH-507 PO (15:03)
[2018-12-06 15:27] VITALS: BP 127/82
== END 2018-12-06 15:27 | disposition home or self-care (01) ==
LOC: EDUNIT# 13:20 → ER 13:22
DX: R60.9 Edema, unspecified (principal); J44.9 Chronic obstructive pulmonary disease, unspecified; I10 Essential (primary) hypertension; E78.00 Pure hypercholesterolemia, unspecified; N40.0 Benign prostatic hyperplasia without lower urinary tract symptoms; K21.9 Gastro-esophageal reflux disease without esophagitis; E11.9 Type 2 diabetes mellitus without complications; F41.9 Anxiety disorder, unspecified; F32.9 Major depressive disorder, single episode, unspecified; Z88.5 Allergy status to narcotic agent; Z87.891 Personal history of nicotine dependence; Z85.46 Personal history of malignant neoplasm of prostate; Z98.890 Other specified postprocedural states; Z82.49 Family history of ischemic heart disease and other diseases of the circulatory system
CPT/HCPCS: 36415; 80053; 83880; 84439; 84443; 85025; 99282

== ENCOUNTER 2019-01-18 10:08 | Emergency (ER) | payer MEDICARE, MEDICAID ==
[~2019-01-18] VITALS: Ht 175 cm; Wt 88.6 kg
[2019-01-18] MEDS ORDERED: FLUT1BLS3 (10:33)
[2019-01-18] MEDS ORDERED: ESCI10TA55 (10:33)
[2019-01-18] MEDS ORDERED: TIZA2TAB4 (10:33)
[2019-01-18] MEDS ORDERED: NAPR-915 (10:33)
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
[2019-01-18] MEDS ORDERED: methylPREDNISolone 40 MG/ML (DEPO MEDROL) VIAL IA ONE (10:45)
[2019-01-18] MEDS ORDERED: LIDOCAINE/EPI 2% 1:100,00 (XYLOCAINE) 20 ML VIAL INJ ONE (10:45)
[2019-01-18] MEDS ORDERED: KETOROLAC 30 MG/ML VIAL IM ONE (10:45)
[2019-01-18] MEDS ORDERED: BUPIVACAINE 0.5% 30 ML (SENSORCAINE) VIAL INJ ONE (10:45)
[2019-01-18 11:57] VITALS: BP 161/90
== END 2019-01-18 11:56 | disposition home or self-care (01) ==
LOC: EDUNIT# 10:08 → ER 10:09
DX: M54.16 Radiculopathy, lumbar region (principal); J44.9 Chronic obstructive pulmonary disease, unspecified; I10 Essential (primary) hypertension; E11.9 Type 2 diabetes mellitus without complications; F41.9 Anxiety disorder, unspecified; F32.9 Major depressive disorder, single episode, unspecified; E78.00 Pure hypercholesterolemia, unspecified; K21.9 Gastro-esophageal reflux disease without esophagitis; M10.9 Gout, unspecified; Z88.5 Allergy status to narcotic agent; Z85.46 Personal history of malignant neoplasm of prostate; Z87.828 Personal history of other (healed) physical injury and trauma; Z79.51 Long term (current) use of inhaled steroids; Z87.891 Personal history of nicotine dependence; Z82.49 Family history of ischemic heart disease and other diseases of the circulatory system
CPT/HCPCS: 99284

== ENCOUNTER → 2019-02-11 | Outpatient (CLI) | payer MEDICARE, MEDICAID ==
[~2019-02-11] MED LIST changes: +CATHETER FLUSH 10 ML SYR IV PRN; +ESCI10TA55; +FLUT1BLS3; +HOLD METFORMIN - RECEIVED CONTRAST 20 ML VIAL IV SCH; +IOHEXOL 350 MG/ML 100 ML (OMNIPAQUE 350) VIAL IV ONE; +NAPR-915; +NS 100 ML (IVPB) BAG IV ONE; +TIZA2TAB4
[2019-02-11 11:54] LABS: BUN/CREATININE RATIO 18; CREATININE SERUM 0.97 MG/DL (0.60-1.30); GFR ESTIMATED > 60
--- NOTE | 2019-02-11 12:46 | Diagnostic Imaging Report ---
PROCEDURE: CT angiography of the chest with contrast. TECHNIQUE: Multiple contiguous axial images were obtained through the chest after uneventful bolus administration of intravenous contrast. 3D reconstructed CTA MIP acquisitions were also performed. Auto Exposure Controls were utilized during the CT exam to meet ALARA standards for radiation dose reduction. INDICATION: COPD, asthma, possible bronchitis. COMPARISON: 11/25/2018. FINDINGS: There are no intraluminal pulmonary arterial filling defects. There are no findings of PE. The aorta is patent and nonaneurysmal. There is no pleural or pericardial effusion. The heart size is within normal limits. No lung mass or focal consolidating infiltrate. No thoracic lymphadenopathy. No bronchiectasis and no significant airway thickening. The lung volumes are symmetric and normal. No pneumothorax or pneumomediastinum. Since the comparison study, there has been partial healing of multiple left-sided rib fractures with no new osseous injury. IMPRESSION: Negative for PE or other acute cardiopulmonary abnormalities. Healing left rb fractures previously noted. No adverse development. Dictated by: Dictated on workstation # [id number]
== END ==
LOC: RAD 11:23
PROVIDERS: ATTEND Nurse Practitioner Family
DX: S22.42XD Multiple fractures of ribs, left side, subsequent encounter for fracture with routine healing (principal); J44.9 Chronic obstructive pulmonary disease, unspecified; J30.9 Allergic rhinitis, unspecified; G47.33 Obstructive sleep apnea (adult) (pediatric)
CPT/HCPCS: 36415; 71275; 82565; 84520

== ENCOUNTER 2019-03-24 15:00 | Emergency (ER) | payer MEDICARE, MEDICAID ==
[~2019-03-24 15:00] MED LIST changes: -CATHETER FLUSH 10 ML SYR IV PRN; -HOLD METFORMIN - RECEIVED CONTRAST 20 ML VIAL IV SCH; -IOHEXOL 350 MG/ML 100 ML (OMNIPAQUE 350) VIAL IV ONE; -NS 100 ML (IVPB) BAG IV ONE
== END 2019-03-24 15:27 | disposition left against medical advice (07) ==
LOC: EDUNIT# 15:00 → ER 15:01
DX: R10.9 Unspecified abdominal pain (principal); R11.10 Vomiting, unspecified; R51 Headache

== ENCOUNTER 2019-05-21 05:46 | Outpatient (CLI) | payer MEDICARE, MEDICAID ==
[~2019-05-21] VITALS: Ht 175 cm; Wt 95.0 kg
[~2019-05-21 05:46] MED LIST changes: +EZET10TA17 PO; -METO-395 PO; +MTP100TCR PO; -TAMS0.4C98 PO
== END 2019-05-21 14:00 | disposition home or self-care (01) ==
LOC: PREOP 05:46
PROVIDERS: ATTEND Surgery
DX: Z01.818 Encounter for other preprocedural examination (principal)

== ENCOUNTER → 2019-06-09 | Day surgery (SDC) | payer MEDICARE, MEDICAID ==
[~2019-06-09] VITALS: Ht 175 cm; Wt 91.0 kg
[~2019-06-09] MED LIST changes: +ACHYD1T PO; -HYDR-3812 PO; -HYDR-3820 PO; +LIDOCAINE 1% INJ 20 ML 20 ML VIAL INJ ONE; +LIDOCAINE 1% INJ 20 ML 20 ML VIAL ONE; -MONT10TA24 PO; +MONT10TA26 PO
[2019-06-09 11:43] VITALS: BP 198/112
--- NOTE | 2019-06-09 15:41 | OPERATIVE REPORT ---
DATE OF SERVICE: 06/09/2019 CLINICAL DIAGNOSIS: Syncope. PROCEDURE: Implantable loop recorder implantation. INDICATIONS: The patient is a 74-year-old man who has been experiencing infrequent syncope. Implantable loop recorder implantation was carried out after obtaining informed consent. DESCRIPTION OF PROCEDURE: [facility] The left prepectoral area was prepared and draped in the usual sterile fashion. Lidocaine 1% was used for local anesthesia. The tools provided with the Feeding Forward Reveal LINQ device were used to make a pocket anterior to the fourth intercostal space on the left side. In this, the device was placed. The edges of the skin were closed using Dermabond and Steri-Strips. The serial number of the device is [id number]. Job ID: [id number] DocumentID: [id number] Dictated Date: 06/09/2019 12:07:47 Edger Hand Date: 06/09/2019 15:41:18 Dictated By: ANDERSON BARRETT MD, MA, FACP, FACC,
== END | disposition home or self-care (01) ==
LOC: CATH 11:32
PROVIDERS: ATTEND Internal Medicine Cardiovascular Disease
DX: R55 Syncope and collapse (principal); I35.1 Nonrheumatic aortic (valve) insufficiency; I10 Essential (primary) hypertension; I25.10 Atherosclerotic heart disease of native coronary artery without angina pectoris; I77.9 Disorder of arteries and arterioles, unspecified; K21.9 Gastro-esophageal reflux disease without esophagitis; G47.33 Obstructive sleep apnea (adult) (pediatric); J44.9 Chronic obstructive pulmonary disease, unspecified; E78.5 Hyperlipidemia, unspecified; E78.1 Pure hyperglyceridemia; N52.9 Male erectile dysfunction, unspecified; Z90.49 Acquired absence of other specified parts of digestive tract; Z87.891 Personal history of nicotine dependence; Z88.8 Allergy status to other drugs, medicaments and biological substances; Z99.89 Dependence on other enabling machines and devices; Z79.899 Other long term (current) drug therapy; Z79.82 Long term (current) use of aspirin; Z88.5 Allergy status to narcotic agent; E66.9 Obesity, unspecified; Z68.31 Body mass index [BMI] 31.0-31.9, adult
CPT/HCPCS: 33285

== ENCOUNTER 2019-06-10 21:01 | Observation (INO) | payer MEDICARE, MEDICAID ==
[~2019-06-10] VITALS: Ht 172.2 cm; Wt 98.0 kg
[~2019-06-10 21:01] MED LIST changes: -LIDOCAINE 1% INJ 20 ML 20 ML VIAL INJ ONE; -LIDOCAINE 1% INJ 20 ML 20 ML VIAL ONE
[2019-06-10 22:50] VITALS: BP 193/91
--- NOTE | 2019-06-10 22:50 | NUR ---
ТАТЬЯНА CROCKETT admitted to room 508-1, with an admitting diagnosis of CHEST PAIN, on 06/10/19 from [facility] via , accompanied by .ТАТЬЯНА CROCKETT introduced to surroundings, call light, bed controls, phone, TV, temperature control, lights, meal times, smoking policy, visitor policy, side rail policy, bathrooms and showers. Patient Rights given to patient in the handbook. ТАТЬЯНА CROCKETT verbalizes understanding that [facility] is not responsible for the loss or damage to any personal effects or valuables that are kept in the patients posession during their hospitalization. The following Patient Care Plans were discussed with the : Discharge Planning, ,, and . ТАТЬЯНА CROCKETT verbalizes understanding of Interdisciplinary Patient Education. Patient and/or family were informed about the Rapid Response Team and its purpose.
[2019-06-10] MEDS ORDERED: hydrALAZINE (APRESOLINE) 25 MG TAB PO ONE (23:15)
[2019-06-10] MEDS ORDERED: hydrALAZINE (APRESOLINE) 25 MG TAB PO PRN (23:15)
[2019-06-10] MEDS ORDERED: hydrALAZINE (APRESOLINE) 25 MG TAB ONE (23:18)
[2019-06-10] MEDS ORDERED: NS IV 1000 ML 1,000 ML IV SCH (23:30)
[2019-06-10] MEDS ORDERED: ACETAMINOPHEN 500 MG TAB (TYLENOL) PO PRN (23:30)
[2019-06-11] VITALS: BP 173/96
[2019-06-11] MEDS ORDERED: fentaNYL INJECTION 100 MCG/2 ML AMP ONE ×2 (00:06→02:12)
[2019-06-11] MEDS: fentaNYL INJECTION 100 MCG/2 ML AMP IVP PRN ×3 (00:14→05:20)
[2019-06-11] MEDS ORDERED: NS IV 1000 ML 1,000 ML ONE (02:19)
[2019-06-11 04:00] VITALS: BP 134/88
[2019-06-11] MEDS: ONDANSETRON 4 MG/2 ML (SDV) Z0FRAN IVP PRN ×2 (04:06→08:12)
[2019-06-11 04:24] LABS: BASOPHILS # (AUTO) 0.1 10^3/uL (0.0-0.1); BASOPHILS % (AUTO) 1 % (0-10); EOSINOPHILS # (AUTO) 0.2 10^3/uL (0.0-0.3); EOSINOPHILS % (AUTO) 4 % (0-10); HEMATOCRIT 34 % (40-54); HEMOGLOBIN 11.2 G/DL (13.3-17.7); LYMPHOCYTES # (AUTO) 1.6 X 10^3 (1.0-4.0); LYMPHOCYTES % (AUTO) 25 % (12-44); MEAN CORPUSCULAR HEMOGLOBIN 27 PG (25-34); MEAN CORPUSCULAR HGB CONC 33 G/DL (32-36); MEAN CORPUSCULAR VOLUME 82 FL (80-99); MEAN PLATELET VOLUME 10.4 FL (7.4-10.4); MONOCYTES # (AUTO) 0.8 X 10^3 (0.0-1.0); MONOCYTES % (AUTO) 13 % (0-12); NEUTROPHILS # (AUTO) 3.6 X 10^3 (1.8-7.8); NEUTROPHILS % (AUTO) 57 % (42-75); PLATELET COUNT 242 10^3/uL (130-400); RED CELL DISTRIBUTION WIDTH 13.3 % (10.0-14.5); WHITE BLOOD COUNT 6.4 10^3/uL (4.3-11.0)
[2019-06-11 04:50] LABS: ALANINE AMINOTRANSFERASE 13 U/L (0-55); ALBUMIN 3.7 GM/DL (3.2-4.5); ALKALINE PHOSPHATASE 99 U/L (40-136); BILIRUBIN,TOTAL 0.6 MG/DL (0.1-1.0); BUN/CREATININE RATIO 13; CALCIUM 9.3 MG/DL (8.5-10.1); CARBON DIOXIDE 23 MMOL/L (21-32); CHLORIDE 108 MMOL/L (98-107); CREATININE SERUM 0.89 MG/DL (0.60-1.30); GFR ESTIMATED > 60; GLUCOSE 99 MG/DL (70-105); POTASSIUM 3.6 MMOL/L (3.6-5.0); SODIUM 142 MMOL/L (135-145); TOTAL PROTEIN 5.9 GM/DL (6.4-8.2)
[2019-06-11 08:08] VITALS: BP 173/79
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
[2019-06-11] MEDS ORDERED: meTOprolol SUCCINATE 100 MG (TOPROL XL) TAB PO NR (09:30)
[2019-06-11] MEDS ORDERED: lisINopril 20 MG (PRINIVIL) TABLET PO NR (09:30)
--- NOTE | 2019-06-11 10:22 | NUR ---
PT LEFT AMA. DR BARRETT AND DR REBOLLEDO NOTIFIED. IV SITE REMOVED PREVIOUS TO PT LEAVING. PT PERSONAL BELONGINGS WITH PT.
--- NOTE | 2019-06-11 16:38 | Discharge Summary ---
Discharge Summary Hospital Course Hospital Course Date of Admission: Jun 10, 2019 at 23:03 Admission Diagnosis : Family Physician/Provider: Julius Will Date of Discharge: 06/11/19 Discharge Diagnosis: Left AMA Chest pain Hospital Course: Troponins negative, Cardiology consulted, had diffuse body pain, were discussing other treatment possibilities and patient left AMA before being seen by Dr. Krueger. Labs and Pending Lab Test: Laboratory Tests 06/10/19 23:27: Troponin I < 0.028 06/11/19 03:24: Troponin I < 0.028, White Blood Count 6.4, Red Blood Count 4.17L, Hemoglobin 11.2L, Hematocrit 34L, Mean Corpuscular Volume 82, Mean Corpuscular Hemoglobin 27, Mean Corpuscular Hemoglobin Concent 33, Red Cell Distribution Width 13.3, Platelet Count 242, Mean Platelet Volume 10.4, Neutrophils (%) (Auto) 57, Lymphocytes (%) (Auto) 25, Monocytes (%) (Auto) 13H, Eosinophils (%) (Auto) 4, Basophils (%) (Auto) 1, Neutrophils # (Auto) 3.6, Lymphocytes # (Auto) 1.6, Monocytes # (Auto) 0.8, Eosinophils # (Auto) 0.2, Basophils # (Auto) 0.1, Sodium Level 142, Potassium Level 3.6, Chloride Level 108H, Carbon Dioxide Level 23, Anion Gap 11, Blood Urea Nitrogen 12, Creatinine 0.89, Estimat Glomerular Filtration Rate > 60, BUN/Creatinine Ratio 13, Glucose Level 99, Calcium Level 9.3, Corrected Calcium 9.5, Total Bilirubin 0.6, Aspartate Amino Transf (AST/SGOT) 22, Alanine Aminotransferase (ALT/SGPT) 13, Alkaline Phosphatase 99, Total Protein 5.9L, Albumin 3.7 Home Meds Active Hydrocodon-Acetaminophn 10-325 (Hydrocodone/Acetaminophen) 1 Each Tablet 1 Tab PO Q6H PRN Reported Trelegy Ellipta 100-62.5-25 (Fluticasone/Umeclidin/Vilanter) 1 Each Blst.w.dev Escitalopram Oxalate 10 Mg Tablet Tizanidine HCl 2 Mg Tablet Naproxen 500 Mg Tablet Flonase Allergy Relief (Fluticasone Propionate) 9.9 Ml [place].susp 1 [place] NS BID PRN Cyclobenzaprine HCl 10 Mg Tablet 10 Mg PO TID PRN ALTERNATES WITH BACLOFEN Senna (Sennosides) 8.6 Mg Tablet 1-2 Tab PO DAILY PRN Baclofen 10 Mg Tablet 10 Mg PO TID PRN Ventolin Hfa (Albuterol Sulfate) 18 Gm Hfa.aer.ad 2 Puff INH Q6H PRN Flomax (Tamsulosin HCl) 0.4 Mg Cap 0.4 Mg PO DAILY Ondansetron Odt (Ondansetron) 8 Mg Tab.rapdis 8 Mg PO Q6H PRN Buspirone HCl 10 Mg Tablet 10 Mg PO HS Men 50 Plus Multivitamin Tab (Multivit-Min/FA/Lycopen/Lutein) 1 Each Tablet 1 Tab PO DAILY Lisinopril 40 Mg Tablet 40 Mg PO DAILY Amitriptyline HCl 100 Mg Tablet 100 Mg PO HS Dexilant (Dexlansoprazole) 60 Mg Cap.dr.bp 60 Mg PO DAILY Montelukast Sodium 10 Mg Tablet 10 Mg PO HS Buspirone HCl 10 Mg Tablet 5 Mg PO DAILY TAKES 1/2 (10MG) TABLET Atorvastatin Calcium 40 Mg Tablet 40 Mg PO HS Allopurinol 300 Mg Tablet 150 Mg PO DAILY TAKES 1/2 (300MG) TABLET Cetirizine HCl 10 Mg Tablet 10 Mg PO DAILY Metoprolol Succinate 100 Mg Tab.er.24h 100 Mg PO DAILY LAST FILLED #30 6-3-19 Symbicort 160-4.5 Mcg Inhaler (Budesonide/Formoterol Fumarate) 10.2 Gm Hfa.aer.ad 2 Puff IH BID Assessment/Pt DC Instructions See above Discharge Physical Examination Allergies: Coded Allergies: morphine (Verified Allergy, Severe, HIVES, N/V,pt has rec. Lortab in the past w/o issue, 05/21/19) Clinical Quality Measures DVT/VTE Risk/Contraindication: Risk Factor Score Per Nursin RFS Level Per Nursing on Admit: 2=Moderate LAURENCE REBOLLEDO MD Jun 11, 2019 16:38
[2019-06-12] MEDS ORDERED: meTOprolol SUCCINATE 100 MG (TOPROL XL) TAB PO SCH (09:00)
[2019-06-12] MEDS ORDERED: lisINopril 20 MG (PRINIVIL) TABLET PO SCH (09:00)
--- OUTSIDE RECORDS SUMMARY | 2019-06-15 12:18 | XMS REPORT | Encounter Summary ---
Demographics Preferred Language Omani Marital Status Unknown Tenriism Affiliation 1009 Race White Ethnic Group Unknown Author Author [facility] Organization [facility] Address Unknown Phone Unavailable Care Team Providers Care Installation & Maintenance Executive Name Role Phone PCP Unavailable Encounter Details Care Team Description Date Type Department Virginia Rosa MD [address] [place] [address] [phone] 08/23/2011 [facility] [place] [facility]-Hist Visit [facility] NON Social History Date Tobacco Use Types [...]
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
--- OUTSIDE RECORDS SUMMARY | 2019-06-15 12:18 | XMS REPORT | Clinical Summary ---
Demographics Preferred Language Sierra Leonean Marital Status Unknown Gnosticism Affiliation 1009 Race White Ethnic Group Unknown Author Author [facility] Organization [facility] Address Unknown Phone Unavailable Care Team Providers Care Employee Relation Manager Name Role Phone Francesco Cano PCP Allergies Not on File Medications Not on [...]
--- OUTSIDE RECORDS SUMMARY | 2019-06-15 12:21 | XMS REPORT | Continuity of Care Document ---
Author Organization Unknown Address Unknown Phone Unavailable Allergies Active Description Code Type Severity Reaction Onset Reported/Identified Relationship to Patient Clinical Status Yes FENTANYL FENTANYL MODERATE Yes MORPHINE MORPHINE MODERATE Yes FENTANYL MODERATE DERMATOLOGICAL - TANESHA Yes FENTANYL MODERATE MODERATE Yes MORPHINE MODERATE DERMATOLOGICAL - TANESHA Yes MORPHINE MODERATE MODERATE Yes morphine [id number] Drug Allergy Severe N/A 07/19/2012 Yes fentanyl [id number] Drug Allergy Unknown N/A 08/19/2013 Yes morphine [id number] Drug Allergy Severe HIVES, N/V 12/07/2016 Yes fentanyl [id number] Drug Allergy Mild RESTLESS 12/07/2016 Yes morphine [id number] Drug Allergy Severe HIVES, N/V,pt h 05/22/2019 Medications Medication Packaging Start Date St op Date Route Dosage Sig NITROSTAT TAB 0.4 [...] LORAZEPAM 1CC VIAL INJ 2 MG/CC (ATIVAN VIA L) MG 11/25/2016 11/25/2016 ONCE&1425 KETOROLAC VIAL INJ 15 MG/CC (TORADOL VIAL) MG 11/25/2016 11/25/2016 ONCE&1426 ONDANSETRON VIAL INJ 4 MG/2CC (ZOFRAN 2CC VIAL) MG 11/25/2016 11/25/2016 ONCE&1426 LORAZEPAM 1CC VIAL INJ 2 MG/CC (ATIVAN VIA L) MG 11/25/2016 11/25/2016 ONCE&1426 NORMAL SALINE 1000CC IV BAG INJ 0.9 % (NS 1000CC IV BAG) ml 11/25/2016 11/25/2016 ONCE&1426 LORAZEPAM TAB 1 MG (ATIVAN) MG 11/25/2016 11/25/2016 PRN ONCE Hydromorphone inj 2mg/cc vial (Dilaudid) MG 01/22/2017 01/22/2017 ONCE&1239 NORMAL SALINE 500CC IV BAG I NJ 0.9 % (NS 500CC IV BAG) ml 01/22/2017 01/22/2017 ONCE&1418 Hydromorphone inj 2mg/cc vial (Dilaudid) MG 01/22/2017 01/22/2017 PRN ONCE ACETAMINOPHEN TAB 500 MG (TYLENOL) MG 03/21/2018 03/21/2018 ONCE&1545 NORMAL SALINE 250CC IV BAG I NJ 0.9 % (NS 250CC IV BAG) ml 03/21/2018 03/21/2018 ONCE&1620 Hydromorphone inj 2mg/cc vial (Dilaudid) MG 03/21/2018 03/21/2018 PRN ONCE NORMAL SALINE 1000CC IV BAG INJ 0.9 % (NS 1000CC IV BAG) ml 03/30/2018 03/30/2018 ONCE&1506 Ondansetron 4mg oral DissolveTab (Zofran) MG 12/06/2018 12/06/2018 ONCE&0348 ORPHENADRINE INJ 60 MG/2CC (NORFLEX) MG 12/06/2018 12/06/2018 ONCE&0348 Hydromorphone inj 2mg/cc vial (Dilaudid) MG 12/06/2018 12/06/2018 ONCE&0348 DIPHENHYDRAMINE CAP 25 MG (BENADRYL) MG 12/06/2018 12/06/2018 PRN ONCE IBUPROFEN TAB 600 MG (MOTRIN) MG 12/06/2018 12/06/2018 ONCE&0507 ORPHENADRINE INJ 60 MG/2CC (NORFLEX) MG 12/07/2018 12/07/2018 ONCE&0125 FENTANYL INJ 100 MCG/2CC VIAL MCG 12/07/2018 12/07/2018 ONCE&0151 Hydromorphone inj 2mg/cc vial (Dilaudid) MG 12/07/2018 12/14/2018 PRN Q4H FENTANYL INJ 100 MCG/2CC VIAL MCG 12/07/2018 12/07/2018 ONCE&0203 KETOROLAC VIAL INJ 15 MG/CC (TORADOL VIAL) MG 12/07/2018 12/07/2018 ONCE&0243 FENTANYL INJ 100 MCG/2CC VIAL MCG 12/07/2018 12/10/2018 PRN Q2H HYDROCODONE/APAP 10/325 TAB 10 /325 (ORIN-TAB 10/325) TAB 12/07/2018 12/10/2018 Q4H&0000,0400,0800,1200,1600 ,2000 ONDANSETRON VIAL INJ 4 MG/2CC (ZOFRAN 2CC VIAL) MG 12/07/2018 12/14/2018 PRN Q4H CYCLOBENZAPRINE TAB 10 MG (FLEXERIL) MG 12/07/2018 12/13/2018 Q8H&0600,1400,2200 DIPHENHYDRAMINE CAP 25 MG (BENADRYL) MG 12/07/2018 12/13/2018 PRN Q6H Hydromorphone inj 2mg/cc vial (Dilaudid) MG 12/07/2018 12/14/2018 PRN Q3H ENOXAPARIN SYRINGE INJ 40 MG (LOVENOX SYRI NGE) MG 12/07/2018 12/16/2018 Daily&0900 POLYETHYLENE GLYCOL POWDER U D PWD (MIRALAX 17GM UNIT DOSE PAKS) gm 12/07/2018 12/13/2018 Daily&0900 ALBUTEROL SVN 2.5MG/3CC LIQ 2.5 MG (PROVENTIL CANDELARIO 2.5MG/3CC) MG 12/07/2018 12/17/2018 PRN QID PANTOPRAZOLE TAB 40 MG (PROTONIX) MG 12/07/2018 12/13/2018 Daily&0900 HYDROCODONE/APAP 10/325 TAB 10 /325 (ORIN-TAB 10/325) TAB 12/07/2018 12/17/2018 PRN Q4H TAMSULOSIN CAP 0.4 MG (FLOMAX) Dose(s) 12/07/2018 12/13/2018 QPM&1800 AMITRIPTYLINE TAB 25 MG (ELAVIL) MG 12/07/2018 12/13/2018 QHS&2100 ZOLPIDEM TAB 5 MG (AMBIEN) M G 12/07/2018 12/14/2018 PRN QHS LISINOPRIL TAB 40 MG (ZESTRIL) Dose(s) 12/08/2018 01/06/2019 Daily&0900 METOPROLOL-XL TAB 50 MG (TOPROL XL) Dose(s) 12/08/2018 01/06/2019 Daily&0900 BUSPIRONE TAB 5 MG (BUSPAR) MG 12/08/2018 12/14/2018 Daily&0900 MONTELUKAST TAB 10 MG (SINGULAIR) Dose(s) 12/08/2018 01/06/2019 Daily&0900 ALLOPURINOL TAB 300 MG (ZYLOPRIM) Dose(s) 12/08/2018 12/14/2018 Daily&0900 HYDROMORPHONE TAB 2 MG (DILAUDID) MG 12/08/2018 12/13/2018 Q6H&0200,0600,1000,1400,1800,2200 IBUPROFEN TAB 600 MG (MOTRIN) MG 12/08/2018 12/15/2018 PRN Q6H DIPHENHYDRAMINE CAP 25 MG (BENADRYL) MG 12/08/2018 12/15/2018 PRN Q6H Hydromorphone inj 2mg/cc vial (Dilaudid) MG 12/16/2018 12/16/2018 ONCE&0945 HYDROMORPHONE TAB 2 MG (DILAUDID) MG 12/16/2018 12/16/2018 ONCE&0947 Hydromorphone inj 2mg/cc vial (Dilaudid) MG 12/16/2018 12/16/2018 ONCE&1120 HYDROXYZINE TAB 25 MG (ATARAX) MG 12/16/2018 01/15/2019 PRN QID HYDROMORPHONE TAB 2 MG (DILAUDID) MG 12/16/2018 12/21/2018 PRN Q4H ACETAMINOPHEN TAB 500 MG (TYLENOL) MG 12/16/2018 01/15/2019 PRN Q8H TAMSULOSIN CAP 0.4 MG (FLOMAX) Dose(s) 12/16/2018 12/22/2018 QPM&1800 BUSPIRONE TAB 5 MG (BUSPAR) MG 12/16/2018 12/22/2018 QHS&2100 AMITRIPTYLINE TAB 25 MG (ELAVIL) Dose(s) 12/16/2018 12/22/2018 QHS&2100 MONTELUKAST TAB 10 MG (SINGULAIR) Dose(s) 12/16/2018 12/16/2018 QHS&2100 TRAZODONE TAB 50 MG (DESYREL) MG 12/16/2018 01/15/2019 PRN QHS HYDROCODONE/APAP 10/325 TAB 10 /325 (ORIN-TAB 10/325) TAB 12/17/2018 12/27/2018 PRN QID LISINOPRIL TAB 40 MG (ZESTRIL) Dose(s) 12/17/2018 01/15/2019 Daily&0900 METOPROLOL-XL TAB 50 MG (TOPROL XL) Dose(s) 12/17/2018 01/15/2019 Daily&0900 BUSPIRONE TAB 5 MG (BUSPAR) Dose(s) 12/17/2018 12/23/2018 Daily&0900 ALLOPURINOL TAB 300 MG (ZYLOPRIM) Dose(s) 12/17/2018 12/23/2018 Daily&0900 HYDROCODONE/APAP 10/325 TAB 10 /325 (ORIN-TAB 10/325) TAB 12/17/2018 12/27/2018 Q6H&0600,1200,1800,2359 ACETAMINOPHEN ORAL TABLET 325mg(Tylenol) MG 12/17/2018 01/16/2019 PRN EVERY 6 Hour HYDROCODONE/APAP 10/325 TAB 10 /325 (ORIN-TAB 10/325) TAB 12/17/2018 01/16/2019 PRN Q6H LORAZEPAM TAB 0.5 MG (ATIVAN) MG 12/17/2018 01/16/2019 PRN Q6H ALUM/MAG/SIMETH 30CC LIQ (MYLANTA PLUS) cc 12/17/2018 12/27/2018 PRN Q4H ESCITALOPRAM TAB 10 MG (LEXAPRO) MG 12/17/2018 12/17/2018 ONCE&1409 POLYETHYLENE GLYCOL POWDER U D PWD (MIRALAX 17GM UNIT DOSE PAKS) gm 12/17/2018 12/27/2018 PRN Q3H CALMOSEPTINE OINT TUBE (RISAMINE OINT) alvina 12/17/2018 12/24/2018 PRN QID LOPERAMIDE CAP 2 MG (IMMODIUM) MG 12/17/2018 12/24/2018 PRN QID TAMSULOSIN CAP 0.4 MG (FLOMAX) MG 12/17/2018 01/15/2019 QPM&1800 MONTELUKAST TAB 10 MG (SINGULAIR) Dose(s) 12/17/2018 01/15/2019 Daily&2000 SIMVASTATIN TAB 40 MG (ZOCOR) MG 12/17/2018 01/15/2019 QPM&2000 LACTULOSE SYRUP LIQ 20 GM/30 CC (CHRONULAC SYRUP) GM 12/17/2018 01/16/2019 PRN BID MILK OF MAGNESIA LIQ ml 12/17/2018 01/16/2019 PRN BID BUSPIRONE TAB 5 MG (BUSPAR) MG 12/17/2018 01/15/2019 QHS&2100 AMITRIPTYLINE TAB 25 MG (ELAVIL) MG 12/17/2018 01/15/2019 QHS&2100 MONTELUKAST TAB 10 MG (SINGULAIR) MG 12/17/2018 01/15/2019 QHS&2100 TRAZODONE TAB 50 MG (DESYREL) MG 12/17/2018 01/15/2019 QHS&2100 ESCITALOPRAM TAB 10 MG (LEXAPRO) MG 12/18/2018 01/16/2019 QAM&0800 BUSPIRONE TAB 5 MG (BUSPAR) MG 12/18/2018 01/16/2019 QAM&0800 ALLOPURINOL TAB 300 MG (ZYLOPRIM) MG 12/18/2018 01/16/2019 QAM&0800 LISINOPRIL TAB 40 MG (ZESTRIL) MG 12/18/2018 01/16/2019 Daily&09 METOPROLOL-XL TAB 50 MG (TOPROL XL) MG 12/18/2018 01/16/2019 Daily&09 PANTOPRAZOLE TAB 40 MG (PROTONIX) MG 12/18/2018 01/16/2019 Daily&09 BISACODYL SUPPOS 10 MG (DULCOLAX SUPPOS) MG 12/18/2018 12/24/2018 PRN Daily KETOROLAC VIAL INJ 30 MG/CC (TORADOL VIAL) MG 01/07/2019 01/07/2019 PRN ONCE ORPHENADRINE INJ 60 MG/2CC (NORFLEX) MG 01/07/2019 01/07/2019 ONCE&1611 ONDANSETRON VIAL INJ 4 MG/2CC (ZOFRAN 2CC VIAL) MG 03/24/2019 03/24/2019 ONCE&1633 FENTANYL INJ 100 MCG/2CC VIAL MCG 03/24/2019 03/24/2019 PRN EVERY 15 Minute LACTATED RINGERS 1000CC IV BAG INJ ml 03/24/2019 03/24/2019 ONCE&1633 KETOROLAC VIAL INJ 15 MG/CC (TORADOL VIAL) MG 03/24/2019 03/24/2019 PRN ONCE AMOX-CLAV 875/125 TAB 875 MG-125MG (AUGMEN TIN) TAB 05/06/2019 05/06/2019 ONCE&0303 NORMAL SALINE 1000CC IV BAG INJ 0.9 % (NS 1000CC IV BAG) ml 05/14/2019 05/14/2019 ONCE&1446 FENTANYL INJ 100 MCG/2CC VIAL MCG 05/14/2019 05/14/2019 ONCE&1501 KETOROLAC VIAL INJ 30 MG/CC (TORADOL VIAL) MG 05/14/2019 05/14/2019 PRN ONCE FENTANYL INJ 100 MCG/2CC VIAL MCG 05/14/2019 05/14/2019 ONCE&1626 ORPHENADRINE INJ 60 MG/2CC (NORFLEX) MG 05/14/2019 05/14/2019 ONCE&1735 FENTANYL INJ 100 MCG/2CC VIAL MCG 05/14/2019 05/14/2019 ONCE&1735 NORMAL SALINE 1000CC IV BAG INJ 0.9 % (NS 1000CC IV BAG) ml 06/10/2019 06/25/2019 CONTINUOUSEVERY 0 Hour LORAZEPAM 1CC VIAL INJ 2 MG/CC (ATIVAN VIA L) MG 06/10/2019 06/10/2019 ONCE&1638 ONDANSETRON VIAL INJ 4 MG/2CC (ZOFRAN 2CC VIAL) MG 06/10/2019 06/10/2019 PRN ONCE KETOROLAC VIAL INJ 15 MG/CC (TORADOL VIAL) MG 06/10/2019 06/10/2019 ONCE&1702 ACETAMINOPHEN TAB 500 MG (TYLENOL) MG 06/10/2019 06/10/2019 PRN ONCE LORAZEPAM 1CC VIAL INJ 2 MG/CC (ATIVAN VIA L) MG 06/10/2019 06/10/2019 ONCE&1702 FENTANYL INJ 100 MCG/2CC VIAL MCG 06/10/2019 06/10/2019 ONCE&1745 FAMOTIDINE VIAL INJ 20 MG/2CC (PEPCID VIAL ) MG 06/10/2019 06/10/2019 ONCE&1755 METOPROLOL TAB 50 MG (LOPRESSOR) MG 06/10/2019 06/10/2019 ONCE&1755 DULOXETINE CAP 30 MG (CYMBALTA) MG 06/10/2019 06/10/2019 ONCE&1755 HYDROCODONE/APAP 5MG/325MG T AB 5 MG/325MG (ORIN-TAB 5/325) TAB 06/10/2019 06/10/2019 ONCE&1815 CEFTRIAXONE PREMIX IV BAG IV 1 GM/50CC (ROCEPHIN PREMIX IV BAG) GM 06/10/2019 06/10/2019 ONCE&1914 ASPIRIN 81MG CHEWABLE TAB 81 MG (BABY ASPI RIN) TABS 06/10/2019 06/10/2019 ONCE&2022 FENTANYL INJ 100 MCG/2CC VIAL MCG 06/10/2019 06/10/2019 ONCE&2022 FENTANYL INJ 100 MCG/2CC VIAL MCG 06/10/2019 06/10/2019 ONCE&2205 Problems Date Dx Coded Attending Type Code Diagnosis Diagnosed By SHEA PAULSON DO Ot M25.512 PAIN IN LEFT SHOULDER SHEA PAULSON DO Ot Z98.890 OTHER SPECIFIED POSTPROCEDURAL STATES 03/07/1454 SHEA PAULSON DO Ot M25.512 PAIN IN LEFT SHOULDER 07/21/2012 Ot 272.4 HYPE RLIPIDEMIA NEC/NOS 07/21/2012 Ot 401.9 HYPE RTENSION NOS 07/21/2012 Ot 414.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 OF [place] CORON 07/21/2012 Ot 424.1 AORT IC VALVE DISORDER 07/21/2012 Ot 496 CHR AI RWAY OBSTRUCT NEC 07/21/2012 Ot 530.81 ESO PHAGEAL REFLUX 07/21/[address] PAIN NOS 07/21/2012 Ot V58.69 OTH MED,LT,CURRENT USE 10/01/2012 ISATU MCDONALD DO Ot 719.45 JOINT PAIN-PELVIS 10/01/2012 ISATU MCDONALD DO Ot V43.65 KNEE JOINT REPLACEMENT STATUS 10/01/2012 ISATU MCDONALD DO Ot V45.89 POSTSURGICAL STATES NEC 10/23/2012 THOMAS QUIROZ MD Ot 272.0 PURE HYPERCHOLESTEROLEM 10/23/2012 THOMAS QUIROZ MD Ot 300.00 ANXIETY STATE NOS 10/23/2012 THOMAS QUIROZ MD Ot 401.9 HYPERTENSION NOS 10/23/2012 THOMAS QUIROZ MD Ot 414.01 CORONARY ATHEROSCLEROSIS OF [place] CORON 10/23/2012 THOMAS QUIROZ MD Ot 493.20 CHRONIC OBSTRUCTIVE ASTHMA, NOS 10/23/2012 THOMAS QUIROZ MD Ot 530.81 ESOPHAGEAL REFLUX 10/23/2012 THMOAS QUIROZ MD Ot 599.0 URIN TRACT INFECTION [...] Ot 724.5 03/10/2014 JOSEPH LAU MD Ot 787.0 2 03/10/2014 JOSEPH LAU MD Ot 789.0 0 03/11/2014 TITO COLE DO Ot 49 6 CHR AIRWAY OBSTRUCT NEC 03/11/2014 TITO COLE DO Ot 530.81 ESOPHAGEAL REFLUX 03/11/2014 TITO COLE DO Ot 786.50 CHEST PAIN NOS 03/11/2014 TITO COLE DO Ot 786.59 CHEST PAIN NEC 03/11/2014 TITO COLE DO Ot 790.99 BLOOD EXAM - OTH NONSPECIFIC FINDINGS 03/11/2014 TITO COLE DO Ot V58.69 OT MED,LT,CURRENT USE 04/06/2014 JOSEPH LAU MD Ot 496 04/07/2014 JOSEPH ALU MD Ot 496 04/07/2014 JOSEPH LAU MD Ot 786.5 0 04/07/2014 JOSEPH LAU MD Ot 796.4 04/07/2014 JOSEPH LAU MD Ot 496 04/12/2014 JOSEPH LAU MD Ot 496 04/12/2014 JOSEPH LAU MD Ot 786.5 0 04/12/2014 JOSEPH LAU MD Ot 796.4 06/15/2014 Ot 596.0 BLAD ANALISA NECK OBSTRUCTION 06/15/2014 Ot 600.00 HYP ERTROPHY (BENIGN) OF PROSTATE W/O URI 06/15/2014 Ot 605 REDUN PREPUCE PHIMOSIS 06/15/2014 Ot 607.1 ARIANNE NOPOSTHITIS 06/15/2014 Ot V58.69 OTH MED,LT,CURRENT USE 08/10/2014 ANDIE IRVIN, SAV Valencia Ot 185 08/13/2014 WILLIS NAZARIO DO Ot 272. 4 08/13/2014 ARAVIND BARON WILLIS Damian Ot 401. 9 08/13/2014 ARAVIND BARON WILLIS Damian Ot 414. 00 08/13/2014 ARAVIND BARON WILLIS Rickie Ot 496 08/27/2014 ARAVIND BARON WILLIS Rickie Ot 272. 4 08/27/2014 ARAVIND BARON WILLIS Damian Ot 401. 9 08/27/2014 ARAVIND BARON WILLIS Damian Ot 414. 00 08/27/2014 ARAVIND BARON WILLIS M Ot 496 09/04/2014 GARY GIBBS APRN [...] 11/16/2014 JOSEPH LAU MD Ot 724.5 11/16/2014 JOSEPH LAU MD Ot 787.0 2 11/16/2014 SID IRVIN, JOSEPH Merchant Ot 789.0 0 11/16/2014 SID IRVIN, JOSEPH Merchant Ot 496 11/16/2014 SID IRVIN, JOSEPH Merchant Ot 496 11/16/2014 SID IRVIN, JOSEPH Merchant Ot 786.5 0 11/16/2014 SID IRVIN, JOSEPH Merchant Ot 796.4 11/16/2014 WILLIS NAZARIO DO Ot 272. 4 11/16/2014 ARAVINDWILLIS DIAZ DO Ot 401. 9 11/16/2014 ARAVINDWILLIS DIAZ DO Ot 414. 00 11/16/2014 ARAVINDWILLIS DIAZ DO Ot 496 11/16/2014 Ot 605 11/16/2014 Ot 607.1 11/16/2014 Ot V72.83 11/16/2014 Ot V74.8 11/16/2014 ANDIE IRVIN, SAV Valencia Ot 185 11/16/2014 GARY GIBBS APRN Ot 786.2 11/16/2014 JOSE D IRVIN, DIPESH Wall Ot 185 11/16/2014 ARNOLD IRVIN FACC, ALI FACP CCDS Ot 185 MALIGN NEOPL PROSTATE 11/16/2014 ARNLOD IRVIN FACC, ALI FACP CCDS Ot 786.59 [...] D IRVIN, DIPESH E Ot 185 12/10/2014 DIPESH JEFFERY MD E Ot 185 01/05/2015 JOSE D IRVIN, [...] K31.7 POLYP OF STOMACH AND DUODENUM 03/16/2015 HERMELINDA IRVIN, KAUSHIK Ot K44.9 DIAPHRAGMATIC HERNIA WITHOUT OBSTRUCTION 03/21/2015 HERMELINDA IRVIN, JOSHAAKI Ot K76.0 03/21/2015 HERMELINDA IRVIN, JOSHAAKI Ot R10.11 04/07/2015 HERMELINDA IRVIN, KAUSHIK Ot K76.0 04/07/2015 HERMELINDA IRVIN, MILADISKI Ot R10.11 04/12/2015 HERMELINDA IRVIN, MILADISKI Ot K76.0 04/12/2015 HERMELINDA IRVIN, MILADISKI Ot R10.11 04/19/2015 HERMELINDA IRVIN, JOSHAAKI Ot R10.11 04/22/2015 HERMELINDA IRVIN, MILADISKI Ot R10.11 04/25/2015 JOSE D IRVIN, DIPESH Wall Ot 185 04/25/2015 JOSE D IRVIN, DIPESH Wall Ot 185 04/28/2015 HERMELINDA IRVIN, KAUSHIK Ot K81.1 CHRONIC CHOLECYSTITIS 05/01/2015 BROOKS DIA SENIOR PRODUCTION SUPERVISOR Ot G89.18 OTHER ACUTE POSTPROCEDURAL PAIN 05/01/2015 BROOKS DIA SENIOR PRODUCTION SUPERVISOR Ot R11 .2 NAUSEA WITH VOMITING, UNSPECIFIED 05/01/2015 BROOKS DIA SENIOR PRODUCTION SUPERVISOR Ot Z90.49 ACQUIRED ABSENCE OF OTHER SPECIFIED PART 05/24/2015 KAUSHIK SHEN MD Ot K82.8 05/24/2015 KAUSHIK SHEN MD Ot Z01.81 2 05/24/2015 KAUSHIK SHEN MD Ot Z11.2 06/01/2015 KAUSHIK SHEN MD Ot K82.8 06/01/2015 KAUSHIK SHEN MD Ot Z01.81 2 06/01/2015 KAUSHIK SHEN MD Ot Z11.2 06/11/2015 SID IRVIN, ALEX Valencia Ot L03.012 CELLULITIS OF LEFT FINGER 08/22/2015 MALOU ROONEY MD Ot G89.29 OTHER CHRONIC PAIN 08/22/2015 MALOU ROONEY MD Ot M54.5 LOW BACK PAIN 08/23/2015 MALOU ROONEY MD Ot G89.29 OTHER CHRONIC PAIN 08/23/2015 MALOU ROONEY MD, Ot M54.5 LOW BACK PAIN 10/10/2015 RICHIE [...] EXTERNAL CAUSE STATUS 02/22/2016 ELPIDIO BELLE Ot Z 23 ENCOUNTER FOR IMMUNIZATION 02/22/2016 ELPIDIO BELLE Ot Z79.899 OTHER GROUP HOME (CURRENT) DRUG THERAPY 02/22/2016 ELPIDIO BELLE Ot Z87.891 PERSONAL HISTORY OF NICOTINE DEPENDENCE 02/22/2016 ELPIDIO BELLE Ot Z96.642 PRESENCE OF LEFT ARTIFICIAL HIP JOINT 02/23/2016 RADHA LAU CORPORATE WEBMASTER Ot 424.1 AORTIC VALVE DISORDER 02/23/2016 HERMELINDA IRVIN, KAUSHIK Ot 211.1 BENIGN NEOPLASM STOMACH 02/23/2016 HERMELINDA IRVIN, KAUSHIK Ot 530.11 REFLUX ESOPHAGITIS 02/23/2016 HERMELINDA IRVIN, KAUSHIK Ot 535.50 UNSP GASTRITIS GASTRODUODENITIS W/O ME 02/23/2016 KAUSHIK SHEN MD Ot 553.3 DIAPHRAGMATIC HERNIA 02/23/2016 HERMELINDA IRVIN, KAUSHIK Ot V72.84 EXAM PRE-OPERATIVE NOS 02/23/2016 SID IRVIN, JOSEPH Merchant Ot 724.5 BACKACHE NOS 02/23/2016 JOSEPH LAU MD Ot 787.0 2 NAUSEA ALONE 02/23/2016 JOSEPH LAU MD Ot 789.0 0 ABDOMINAL PAIN, UNSPECIFIED SITE 02/23/2016 JOSEPH LAU MD Ot 496 CHR AIRWAY OBSTRUCT NEC 02/23/2016 JOSEPH LAU MD Ot 496 CHR AIRWAY OBSTRUCT NEC 02/23/2016 JOSEPH LAU MD Ot 786.5 0 CHEST PAIN NOS 02/23/2016 JOSEPH LAU MD Ot 796.4 ABN CLINICAL FINDING NEC 02/23/2016 WILLIS NAZARIO DO Ot 272. 4 HYPERLIPIDEMIA NEC/NOS 02/23/2016 WILLIS NAZARIO DO Ot 401. 9 HYPERTENSION NOS 02/23/2016 WILLIS NAZARIO DO Ot 414. 00 CORON ATHEROSCLER NOS TYPE VESSEL, NATIV 02/23/2016 WILLIS NAZARIO DO Ot 496 CHR AIRWAY OBSTRUCT NEC 02/23/2016 Ot 605 REDUN PREPUCE PHIMOSIS 02/23/2016 Ot 607.1 ARIANNE NOPOSTHITIS 02/23/2016 Ot V72.83 EXA M PRE- OPERATIVE NEC 02/23/2016 Ot V74.8 SCRE EN-BACTERIAL DIS NEC 02/23/2016 NADIE IRVIN, SAV Valencia Ot 185 MALIGN NEOPL PROSTATE 02/23/2016 GARY GIBBS APRN Ot 786.2 COUGH 02/23/2016 JOSE D IRVIN, DIPESH E Ot 185 02/23/2016 KAUSHIK SHEN MD, Ot K76.0 FATTY (CHANGE OF) LIVER, NOT ELSEWHERE C 02/23/2016 KAUSHIK SHEN MD, Ot R10.11 RIGHT UPPER QUADRANT PAIN 02/23/2016 KAUSHIK SHEN MD, Ot K27.9 PEPTIC ULC, SITE UNSP, UNSP AC OR CHR 02/23/2016 KAUSHIK SHEN MD, Ot Z01.81 8 ENCOUNTER FOR OTHER PREPROCEDURAL EXAMIN 02/23/2016 KAUSHIK SHEN MD, Ot R10.11 RIGHT UPPER QUADRANT PAIN 02/23/2016 KAUSHIK SHEN MD, Ot K82.8 OTHER SPECIFIED DISEASES OF GALLBLADDER 02/23/2016 KAUSHIK SHEN MD, Ot Z01.81 2 ENCOUNTER FOR PREPROCEDURAL LABORATORY E 02/23/2016 KAUSHIK [...] EXTERNAL CAUSE STATUS 03/07/2016 ELPIDIO BELLE Ot Z 23 ENCOUNTER FOR IMMUNIZATION 03/07/2016 ELPIDIO BELLE Ot Z79.899 OTHER GROUP HOME (CURRENT) DRUG THERAPY 03/07/2016 ELPIDIO BELLE Ot Z87.891 PERSONAL HISTORY OF NICOTINE DEPENDENCE 03/07/2016 ELPIDIO BELLE Ot Z96.642 PRESENCE OF LEFT ARTIFICIAL HIP JOINT 06/04/2016 LISSET GRANADO L CORPORATE WEBMASTER Ot E78.4 OTHER HYPERLIPIDEMIA 06/04/2016 BAILISSET BOWSER L CORPORATE WEBMASTER Ot I 10 ESSENTIAL (PRIMARY) HYPERTENSION 06/04/2016 BAILISSET BOWSER L CORPORATE WEBMASTER Ot I25.10 ATHSCL HEART DISEASE OF [place] CORONARY 06/04/2016 BAIMAGUE LISSET L CORPORATE WEBMASTER Ot I34.0 NONRHEUMATIC MITRAL (VALVE) INSUFFICIENC 06/04/2016 BAIMA LISSET L CORPORATE WEBMASTER Ot I35.1 NONRHEUMATIC AORTIC (VALVE) INSUFFICIENC 06/04/2016 BAIMALISSET L CORPORATE WEBMASTER Ot I65.23 OCCLUSION AND STENOSIS OF BILATERAL [place] 06/07/2016 BAILISSET BOWSER L CORPORATE WEBMASTER Ot E78.4 OTHER HYPERLIPIDEMIA 06/07/2016 BAILISSET BOWSER L CORPORATE WEBMASTER Ot I 10 ESSENTIAL (PRIMARY) HYPERTENSION 06/07/2016 BAILISSET BOWSER L CORPORATE WEBMASTER Ot I25.10 ATHSCL HEART DISEASE OF [place] CORONARY 06/07/2016 BAIROLY BOWSERHER L CORPORATE WEBMASTER Ot I34.0 NONRHEUMATIC MITRAL (VALVE) INSUFFICIENC 06/07/2016 BAIMA LISSET L CORPORATE WEBMASTER Ot I35.1 NONRHEUMATIC AORTIC (VALVE) INSUFFICIENC 06/07/2016 BAIMAROLYLISSET L CORPORATE WEBMASTER Ot I65.23 OCCLUSION AND STENOSIS OF [place]ILATER[place] 09/08/2016 Brokob, Irasema W 401.0 MALIGNANT ESSENTIAL HYPERTENSION 09/08/2016 Brokob, Irasema W 530.81 ESOPHAGEAL REFLUX 09/08/2016 Brokob, Irasema A 786.5 CHEST PAIN 09/08/2016 Brokob, Irasema W I10 ESSENTIAL (PRIMARY) HYPERTENSION 09/08/2016 Brokob, Irasema W K21.9 GASTRO- ESOPHAGEAL REFLUX DISEASE WITHOUT ESOPHAGITIS 09/08/2016 Brokob, Irasema A R07.89 OTHER CHEST PAIN 11/01/2016 RADHA LAU CORPORATE WEBMASTER Ot 424.1 AORTIC VALVE DISORDER 11/01/2016 KAUSHIK SHEN MD Ot 211.1 BENIGN NEOPLASM STOMACH 11/01/2016 HERMELINDA IRVIN, KAUSHIK Ot 530.11 REFLUX ESOPHAGITIS 11/01/2016 KAUSHIK SHEN MD Ot 535.50 UNSP GASTRITIS GASTRODUODENITIS W/O ME 11/01/2016 KAUSHIK SHEN MD Ot 553.3 DIAPHRAGMATIC HERNIA 11/01/2016 KAUSHIK SHEN MD Ot V72.84 EXAM PRE-OPERATIVE NOS 11/01/2016 JOSEPH LAU MD Ot 724.5 BACKACHE NOS 11/01/2016 JOSEPH LAU MD Ot 787.0 2 NAUSEA ALONE 11/01/2016 JOSEPH LAU MD Ot 789.0 0 ABDOMINAL PAIN, UNSPECIFIED SITE 11/01/2016 JOSEPH LAU MD Ot 496 CHR AIRWAY OBSTRUCT NEC 11/01/2016 JOSEPH LAU MD Ot 496 CHR AIRWAY OBSTRUCT NEC 11/01/2016 JOSEPH LAU MD Ot 786.5 0 CHEST PAIN NOS 11/01/2016 JOSEPH LAU MD Ot 796.4 ABN CLINICAL FINDING NEC 11/01/2016 WILLIS NAZARIO DO Ot 272. 4 HYPERLIPIDEMIA NEC/NOS 11/01/2016 WILLIS NAZARIO DO Ot 401. 9 HYPERTENSION NOS 11/01/2016 WILLIS NAZARIO DO Ot 414. 00 CORON ATHEROSCLER NOS TYPE VESSEL, NATIV 11/01/2016 WILLIS NAZARIO DO Ot 496 CHR AIRWAY OBSTRUCT NEC 11/01/2016 Ot 605 REDUN PREPUCE PHIMOSIS 11/01/2016 Ot 607.1 ARIANNE NOPOSTHITIS 11/01/2016 Ot V72.83 EXA M PRE- OPERATIVE NEC 11/01/2016 Ot V74.8 SCRE EN-BACTERIAL DIS NEC 11/01/2016 ANDIE IRVIN, SAV [place] Ot 185 MALIGN NEOPL PROSTATE 11/01/2016 GARY GIBBS APRN Ot 786.2 COUGH 11/01/2016 JOSE D IRVIN, DIPESH Wall Ot 185 11/01/2016 HERMELINDA IRVIN, KAUSHIK Ot K76.0 FATTY (CHANGE OF) LIVER, NOT ELSEWHERE C 11/01/2016 KAUSHIK SHEN MD Ot R10.11 RIGHT UPPER QUADRANT PAIN 11/01/2016 KAUSHIK SHEN MD Ot K27.9 PEPTIC ULC, SITE UNSP, UNSP AC OR CHR 11/01/2016 KAUSHIK SHEN MD, Ot Z01.81 8 ENCOUNTER FOR OTHER PREPROCEDURAL EXAMIN 11/01/2016 KAUSHIK SHEN MD Ot R10.11 RIGHT UPPER QUADRANT PAIN 11/01/2016 KAUSHIK SHEN MD, Ot K82.8 OTHER SPECIFIED DISEASES OF GALLBLADDER 11/01/2016 KAUSHIK SHEN MD, Ot Z01.81 2 ENCOUNTER FOR PREPROCEDURAL LABORATORY E 11/01/2016 KAUSHIK SHEN MD, Ot Z11.2 ENCOUNTER FOR SCREENING FOR OTHER BACTER 11/01/2016 LISSET GRANADO CORPORATE WEBMASTER Ot E78.4 OTHER HYPERLIPIDEMIA 11/01/2016 LISSET GRANADO CORPORATE WEBMASTER Ot I 10 ESSENTIAL (PRIMARY) HYPERTENSION 11/01/2016 LISSET GRANADO CORPORATE WEBMASTER Ot I25.10 ATHSCL HEART DISEASE OF [place] CORONARY 11/01/2016 ILSSET GRANADO CORPORATE WEBMASTER Ot I34.0 NONRHEUMATIC MITRAL (VALVE) INSUFFICIENC 11/01/2016 LISSET GRANADO CORPORATE WEBMASTER Ot I35.1 NONRHEUMATIC AORTIC (VALVE) INSUFFICIENC 11/01/2016 LISSET GRANADO CORPORATE WEBMASTER Ot I65.23 OCCLUSION AND STENOSIS OF BILATERAL COBB 11/01/2016 SLOANE LOUIS DO Ot E11.9 TYPE 2 DIABETES MELLITUS WITHOUT COMPLIC 11/01/2016 SLOANE LOUIS DO Ot E78.00 PURE HYPERCHOLESTEROLEMIA, UNSPECIFIED 11/01/2016 ALIA LOUIS DOA K Ot G89.29 OTHER CHRONIC PAIN 11/01/2016 SLOANE [...] ARTIFICIAL HIP JOINT 11/08/2016 SLOANE LOUIS DO K Ot E11.9 TYPE 2 DIABETES MELLITUS WITHOUT COMPLIC 11/08/2016 SLOANE LUOIS DO K Ot E78.00 PURE HYPERCHOLESTEROLEMIA, UNSPECIFIED 11/08/2016 SLOANE LOUIS DO Ot G89.29 OTHER CHRONIC PAIN 11/08/2016 HERIBERTO BARON SLOANE Cotter Ot I10 ESSENTIAL (PRIMARY) HYPERTENSION 11/08/2016 HERIBERTO BARON SLOANE Cotter Ot J44.9 CHRONIC OBSTRUCTIVE PULMONARY DISEASE, U 11/08/2016 SLOANE LOUIS DO Ot K21.9 GASTRO-ESOPHAGEAL REFLUX DISEASE WITHOUT 11/08/2016 HERIBERTO SLOANE Cotter Ot M19.90 UNSPECIFIED OSTEOARTHRITIS, UNSPECIFIED 11/08/2016 HERIBERTO SLOANE Cotter Ot M54.5 LOW BACK PAIN 11/08/2016 SLOANE [...] PRESENCE OF RIGHT ARTIFICIAL SHOULDER ELIEL 11/08/2016 SLOANE LOUIS DO Ot Z96.642 PRESENCE OF LEFT ARTIFICIAL HIP JOINT 11/25/2016 Pipo Tripp 300.01 PANIC DISORDER WITHOUT AGORAPHOBIA 11/25/2016 Pipo Tripp F41.0 PANIC DISORDER WITHOUT AGORAPHOBIA 12/04/2016 ELPIDIO BELLE Ot E11.9 TYPE 2 DIABETES MELLITUS WITHOUT COMPLIC 12/04/2016 ELPIDIO BELLE Ot E78.00 PURE HYPERCHOLESTEROLEMIA, UNSPECIFIED 12/04/2016 ELPIDIO BELLE Ot G89.29 OTHER CHRONIC PAIN 12/04/2016 ELPIDIO BELLE Ot I 10 ESSENTIAL (PRIMARY) HYPERTENSION 12/04/2016 ELPIDIO BELLE Ot [...] OTHER CHRONIC PAIN 12/07/2016 ELPIDIO BELLE Ot I 10 ESSENTIAL (PRIMARY) HYPERTENSION 12/07/2016 ELPIDIO BELLE Ot [...] OTHER CHRONIC PAIN 12/11/2016 ELPIDIO BELLE Ot I 10 ESSENTIAL (PRIMARY) HYPERTENSION 12/11/2016 ELPIDIO BELLE Ot J44.9 CHRONIC OBSTRUCTIVE PULMONARY DISEASE, U 12/11/2016 ELPIDIO BELLE Ot M06.9 RHEUMATOID ARTHRITIS, UNSPECIFIED 12/11/2016 ELPIDIO BELLE Ot M25.551 PAIN IN RIGHT HIP 12/11/2016 ELPIDIO BELLE Ot M25.552 PAIN IN LEFT HIP 12/11/2016 ELPIDIO BELLE Ot M25.562 PAIN IN LEFT KNEE 12/11/2016 ELPIDIO BELLE Ot M47.9 SPONDYLOSIS, UNSPECIFIED 12/11/2016 ABEL PA, ELPIDIO L Ot S39.012A STRAIN OF MUSCLE, FASCIA AND [...] OTHER CHRONIC PAIN 12/13/2016 ELPIDIO BELLE Ot I 10 ESSENTIAL (PRIMARY) HYPERTENSION 12/13/2016 ELPIDIO BELLE Ot [...] INITIAL ENCOUNT 12/13/2016 ELPIDIO BELLE Ot Y92.89 [facility] OF OCCURRENCE OF 12/13/2016 [...] Tripp 564.00 CONSTIPATION, UNSPECIFIED 01/22/2017 Pipo Tripp 693.0 01/22/2017 Pipo Tripp 719.45 PAIN IN [...] T45.515A ADVERSE EFFECT OF ANTICOAGULANTS, INITIAL ENCOUNTER 01/25/2017 959.2 OTHE R AND UNSPECIFIED INJURY TO SHOU 01/25/2017 W 996.49 OTH ER MECHANICAL COMPLICATION OF OTHER INTERNAL ORTHOPEDIC DEVICE, IMPLANT, AND GRAFT 01/25/2017 W B37.81 CAN DIDAL ESOPHAGITIS 01/25/2017 W C61 MALIGN ANT NEOPLASM OF PROSTATE 01/25/2017 W E78.2 MIXE D HYPERLIPIDEMIA 01/25/2017 W I05.9 RHEU MATIC MITRAL VALVE DISEASE, UNSPECIFIED 01/25/2017 W I10 ESSENT IAL (PRIMARY) HYPERTENSION 01/25/2017 W I12.9 HYPE RTENSIVE CHRONIC KIDNEY DISEASE WITH STAGE 1 THROUGH STAGE 4 CHRONIC KIDNEY DISEASE, OR UNSPECIFIED CHRONIC KIDNEY DISEASE 01/25/2017 W 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 01/25/2017 W J30.1 MARIVEL RGIC RHINITIS DUE TO POLLEN 01/25/2017 W J44.9 ARTIFICIAL INTELLIGENCE SPECIALIST [place] OBSTRUCTIVE PULMONARY DISEASE, UNSPECIFIED 01/25/2017 W J45.909 UN SPECIFIED ASTHMA, UNCOMPLICATED 01/25/2017 W K21.9 NINA RO-ESOPHAGEAL REFLUX DISEASE WITHOUT ESOPHAGITIS 01/25/2017 W K29.70 GAS TRITIS, UNSPECIFIED, WITHOUT BLEEDING 01/25/2017 W K31.84 GAS TROPARESIS 01/25/2017 W K44.0 DIAP HRAGMATIC HERNIA WITH OBSTRUCTION, WITHOUT GANGRENE 01/25/2017 W K59.00 CON STIPATION, UNSPECIFIED 01/25/2017 W K76.9 LIVE R DISEASE, UNSPECIFIED 01/25/2017 W M10.9 GOUT , UNSPECIFIED 01/25/2017 W M19.90 UNS PECIFIED OSTEOARTHRITIS, UNSPECIFIED SITE 01/25/2017 W N27.9 SMAL L KIDNEY, UNSPECIFIED 01/25/2017 W S46.091 OT HER INJURY OF MUSCLE(S) AND TENDON(S) OF THE ROTATOR CUFF OF RIGHT SHOULDER 01/25/2017 W V58.89 ENC OUNTER FOR OTHER SPECIFIED AFTERCARE 01/25/2017 W Z51.89 ENC OUNTER FOR OTHER SPECIFIED AFTERCARE 01/25/2017 W Z96.642 SD ESENCE OF LEFT ARTIFICIAL HIP JOINT 03/07/2017 A 338.18 OTH ER ACUTE POSTOPERATIVE PAIN 03/07/2017 W 719.45 GWEN N IN JOINT INVOLVING PEL[place] REGION AND THIGH 03/07/2017 A G89.18 OTH ER ACUTE POSTPROCEDURAL PAIN 03/07/2017 W M25.551 PA IN IN RIGHT HIP 04/11/2017 W 535.0 ACUT E GASTRITIS 04/11/2017 W 787.0 NAUS EA AND VOMITING 04/11/2017 W A09 INFECT IOUS GASTROENTERITIS AND COLITIS, UNSPECIFIED 04/11/2017 W R11.2 NAUS EA WITH VOMITING, UNSPECIFIED 04/16/2017 W 789.02 ABD OMINAL PAIN, LEFT UPPER QUADRANT 04/16/2017 W 789.04 ABD OMINAL PAIN, LEFT LOWER QUADRANT 04/16/2017 W 840.7 SUPE RIOR GLENOID LABRUM LESION 04/16/2017 W R10.12 LEF T UPPER QUADRANT PAIN 04/16/2017 W R10.32 LEF T LOWER QUADRANT PAIN 04/16/2017 W S43.432A S UPERIOR GLENOID LABRUM LESION OF LEFT SHOULDER, INITIAL ENCOUNTER 08/06/2017 W 461.9 ACUT E SINUSITIS, UNSPECIFIED 08/06/2017 W J01.90 ACU TE SINUSITIS, UNSPECIFIED 09/24/2017 SHEA PAULSON DO Ot M25.512 PAIN IN LEFT SHOULDER 09/30/2017 SHEA PAULSON DO Ot M25.512 PAIN IN LEFT SHOULDER 10/16/2017 W 335.24 FATOU YESICA LATERAL SCLEROSIS 10/16/2017 W 564.00 CON STIPATION, UNSPECIFIED 10/16/2017 W 781.99 OTH ER SYMPTOMS INVOLVING NERVOUS AND MUSCULOSKELETAL SYSTEMS 10/16/2017 W 783.9 OTHE R SYMPTOMS CONCERNING NUTRITION, METABOLISM, AND DEVELOPMENT 10/16/2017 W G12.29 OTH ER MOTOR NEURON DISEASE 10/16/2017 W K59.09 OTH ER CONSTIPATION 10/16/2017 W R29.818 OT HER SYMPTOMS AND SIGNS INVOLVING THE NERVOUS SYSTEM 10/16/2017 W R63.0 ANOREXIA 10/20/2017 ADALBERTO WINKLER Ot E11.9 TYPE 2 [...] Z87.891 PERSONAL HISTORY OF NICOTINE DEPENDENCE 10/20/2017 BELENVALENCIA CASTELLONIS Ot Z88.5 ALLERGY STATUS TO NARCOTIC AGENT STATUS 10/20/2017 BELENVALENCIA CASTELLONIS Ot 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 10/20/2017 BELENVALENCIA CASTELLONIS Ot Z96.642 PRESENCE OF LEFT ARTIFICIAL HIP JOINT 10/20/2017 BELENVALENCIA CASTELLONIS Ot Z96.652 PRESENCE OF LEFT ARTIFICIAL KNEE JOINT 10/22/2017 VALENCIA WINKLERIS Ot E11.9 TYPE 2 DIABETES MELLITUS WITHOUT COMPLIC 10/22/2017 VALENCIA WINKLERIS Ot E78.00 PURE HYPERCHOLESTEROLEMIA, UNSPECIFIED 10/22/2017 BERNVALENCIA CASTELLONIS Ot I10 ESSENTIAL (PRIMARY) HYPERTENSION 10/22/2017 ADALBERTO [...] Z87.442 PERSONAL HISTORY OF URINARY CALCULI 10/22/2017 ADALBERTO WINKLER Ot Z87.891 PERSONAL HISTORY OF NICOTINE DEPENDENCE 10/22/2017 ADALBERTO WINKLER Ot Z88.5 ALLERGY STATUS TO NARCOTIC AGENT STATUS 10/22/2017 VALENCIA WINKLERIS Ot 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 10/22/2017 VALENCIA WINKLERIS Ot Z96.642 PRESENCE OF LEFT ARTIFICIAL HIP JOINT 10/22/2017 BERNVALENCIA CASTELLONIS Ot Z96.652 PRESENCE OF LEFT ARTIFICIAL [...] NOS 10/25/2017 SID IRVIN, JOSEPH Merchant Ot 787.0 2 NAUSEA ALONE 10/25/2017 SID IRVIN, JOSEPH Merchant Ot 789.0 0 ABDOMINAL PAIN, UNSPECIFIED SITE 10/25/2017 SID IRVIN, JOSEPH Merchant Ot 496 CHR AIRWAY OBSTRUCT NEC 10/25/2017 SID IRVIN, JOSEPH Merchant Ot 496 CHR AIRWAY OBSTRUCT NEC 10/25/2017 SID IRVIN, JOSEPH Merchant Ot 786.5 0 CHEST PAIN NOS 10/25/2017 SID IRVIN, JOSEPH Merchant Ot 796.4 ABN CLINICAL FINDING NEC 10/25/2017 WILLIS NAZARIO DO Ot 272. 4 HYPERLIPIDEMIA NEC/NOS 10/25/2017 WILLIS NAZARIO DO Ot 401. 9 HYPERTENSION NOS 10/25/2017 WILLIS NAZARIO DO Ot 414. 00 CORON ATHEROSCLER NOS TYPE VESSEL, NATIV 10/25/2017 WILLIS NAZARIO DO Ot 496 CHR AIRWAY OBSTRUCT NEC 10/25/2017 Ot 605 REDUN PREPUCE PHIMOSIS 10/25/2017 Ot 607.1 ARIANNE NOPOSTHITIS 10/25/2017 Ot V72.83 EXA M PRE- OPERATIVE NEC 10/25/2017 Ot V74.8 SCRE EN-BACTERIAL DIS NEC 10/25/2017 ANDIE IRVIN, SAV Valencia Ot 185 MALIGN NEOPL PROSTATE 10/25/2017 GARY GIBBS APRN Ot 786.2 COUGH 10/25/2017 JOSE D IRVIN, DIPESH Wall Ot 185 10/25/2017 HERMELINDA IRVIN, KAUSHIK Ot K76.0 FATTY (CHANGE OF) LIVER, NOT ELSEWHERE C 10/25/2017 HERMELINDA IRVIN, KAUSHIK Ot R10.11 RIGHT UPPER QUADRANT PAIN 10/25/2017 HERMELINDA IRVIN, KAUSHIK Ot K27.9 PEPTIC ULC, SITE UNSP, UNSP AC OR CHR 10/25/2017 KAUSHIK SHEN MD, Ot Z01.81 8 ENCOUNTER FOR OTHER PREPROCEDURAL EXAMIN 10/25/2017 KAUSHIK SHEN MD Ot R10.11 RIGHT UPPER QUADRANT PAIN 10/25/2017 KAUSHIK SHEN MD Ot K82.8 OTHER SPECIFIED DISEASES OF GALLBLADDER 10/25/2017 KAUSHIK SHEN MD, Ot Z01.81 2 ENCOUNTER FOR PREPROCEDURAL LABORATORY E 10/25/2017 KAUSHIK SHEN MD, Ot Z11.2 ENCOUNTER FOR SCREENING FOR OTHER BACTER 10/25/2017 LISSET GRANADO CORPORATE WEBMASTER Ot E78.4 OTHER HYPERLIPIDEMIA 10/25/2017 LISSET GRANADO L CORPORATE WEBMASTER Ot I 10 ESSENTIAL (PRIMARY) HYPERTENSION 10/25/2017 LISSET GRANADO CORPORATE WEBMASTER Ot I25.10 ATHSCL HEART DISEASE OF [place] CORONARY 10/25/2017 LISSET GRANADO CORPORATE WEBMASTER Ot I34.0 NONRHEUMATIC MITRAL (VALVE) INSUFFICIENC 10/25/2017 LISSET GRANADO CORPORATE WEBMASTER Ot I35.1 NONRHEUMATIC AORTIC (VALVE) INSUFFICIENC 10/25/2017 LISSET GRANADO CORPORATE WEBMASTER Ot I65.23 OCCLUSION AND STENOSIS OF BILATERAL [place] 10/25/2017 SHEA PAULSON DO Ot M25.512 PAIN IN LEFT SHOULDER 10/25/2017 SCOTTY MEANS APRN Ot E87.1 HYPO-OSMOLALITY AND HYPONATREMIA 10/25/2017 SCOTTY MEANS APRN Ot J43.9 EMPHYSEMA, UNSPECIFIED 10/25/2017 SCOTTY MEANS APRN Ot R63.4 ABNORMAL WEIGHT LOSS 10/25/2017 THOMAS QUIROZ MD Ot E11.9 TYPE 2 DIABETES MELLITUS WITHOUT COMPLIC 10/25/2017 THOMAS QUIROZ MD Ot E78.00 PURE HYPERCHOLESTEROLEMIA, UNSPECIFIED 10/25/2017 THOMAS QUIROZ MD Ot G47.9 SLEEP DISORDER, UNSPECIFIED 10/25/2017 THOMAS QUIROZ MD Ot I10 ESSENTIAL (PRIMARY) HYPERTENSION 10/25/2017 THOMAS QUIROZ MD Ot J44.9 CHRONIC OBSTRUCTIVE PULMONARY DISEASE, U 10/25/2017 THOMAS QUIROZ MD Ot K21.9 GASTRO-ESOPHAGEAL REFLUX DISEASE WITHOUT 10/25/2017 THOMAS QUIROZ MD, Ot R05 COUGH 10/25/2017 THOMAS QUIROZ MD Ot R07.81 PLEURODYNIA 10/25/2017 THOMAS QUIROZ MD, Ot R51 HEADACHE 10/25/2017 THOMAS QUIROZ MD, Ot Z79.52 GROUP HOME (CURRENT) USE OF SYSTEMIC STER 10/25/2017 THOMAS [...] LEFT ARTIFICIAL HIP JOINT 10/25/2017 THOMAS QUIROZ MD, Ot Z96.652 PRESENCE OF [...] MD Ot R07.81 PLEURODYNIA 10/28/2017 THOMAS QUIROZ MD, Ot R51 HEADACHE 10/28/2017 THOMAS QUIROZ MD, Ot 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 10/28/2017 THOMAS [...] TO NARCOTIC AGENT STATUS 10/28/2017 THOMAS QUIROZ MD Ot Z88.8 ALLERGY STATUS [...] PAIN IN LEFT SHOULDER 10/29/2017 SHEA PAULSON DO, Ot M25.512 PAIN IN LEFT SHOULDER 10/29/2017 W 461.9 ACUT E SINUSITIS, UNSPECIFIED 10/29/2017 W 784.91 POS TNASAL DRIP 10/29/2017 W J01.90 ACU TE SINUSITIS, UNSPECIFIED 10/29/2017 W R09.82 POS TNASAL DRIP 10/31/2017 THOMAS QUIROZ MD Ot E11.9 TYPE 2 DIABETES MELLITUS WITHOUT COMPLIC 10/31/2017 THOMAS QUIROZ MD Ot E78.00 PURE HYPERCHOLESTEROLEMIA, UNSPECIFIED 10/31/2017 THOMAS QUIROZ MD, Ot G47.9 SLEEP DISORDER, UNSPECIFIED 10/31/2017 THOMAS QUIROZ MD Ot I10 ESSENTIAL (PRIMARY) HYPERTENSION 10/31/2017 THOMAS QUIROZ MD, Ot J44.9 CHRONIC OBSTRUCTIVE PULMONARY DISEASE, U 10/31/2017 THOMAS QUIROZ MD, Ot K21.9 GASTRO-ESOPHAGEAL REFLUX DISEASE WITHOUT 10/31/2017 THOMAS QUIROZ MD Ot R05 COUGH 10/31/2017 THOMAS QUIROZ MD Ot R07.81 PLEURODYNIA 10/31/2017 THOMAS QUIROZ MD, Ot R51 HEADACHE 10/31/2017 THOMAS QUIROZ MD, Ot Z79.52 GROUP HOME (CURRENT) USE OF SYSTEMIC STER 10/31/2017 THOMAS QUIROZ MD Ot Z85.46 PERSONAL HISTORY OF MALIGNANT NEOPLASM O 10/31/2017 THOMAS QUIROZ MD Ot Z87.19 PERSONAL HISTORY OF OTHER DISEASES OF TH 10/31/2017 THOMAS QUIROZ MD, Ot Z87.442 PERSONAL HISTORY OF URINARY CALCULI 10/31/2017 THOMAS QUIROZ MD Ot Z87.891 PERSONAL HISTORY OF NICOTINE DEPENDENCE 10/31/2017 THOMAS QUIROZ MD Ot Z88.5 ALLERGY STATUS TO NARCOTIC AGENT [...] DIABETES MELLITUS WITHOUT COMPLIC 11/17/2017 Ot E78.00 PUR E HYPERCHOLESTEROLEMIA, UNSPECIFIED 11/17/2017 Ot I10 ESSENT IAL (PRIMARY) HYPERTENSION 11/17/2017 Ot J44.9 ARTIFICIAL INTELLIGENCE SPECIALIST [place] OBSTRUCTIVE PULMONARY DISEASE, U 11/17/2017 Ot K21.9 NINA RO-ESOPHAGEAL REFLUX DISEASE WITHOUT 11/17/2017 Ot L08.9 LOCA L INFECTION OF THE SKIN AND SUBCUTAN 11/17/2017 Ot M79.641 PA IN IN RIGHT HAND 11/17/2017 Ot S63.91XA S PRAIN OF UNSP PART OF RIGHT WRIST AND H 11/17/2017 Ot W06.XXXA F ALL FROM BED, INITIAL ENCOUNTER 11/17/2017 Ot W22.01XA W ALKED INTO WALL, INITIAL ENCOUNTER 11/17/2017 Ot Z79.51 ELYSE G TERM (CURRENT) USE OF INHALED STERO 11/17/2017 Ot Z79.52 ELYSE G TERM (CURRENT) USE OF SYSTEMIC STER 11/17/2017 Ot Z85.46 PER KATERINA HISTORY OF MALIGNANT NEOPLASM O 11/17/2017 Ot Z86.010 PE RSONAL HISTORY OF COLONIC POLYPS 11/17/2017 Ot Z87.19 PER KATERINA HISTORY OF OTHER DISEASES OF TH 11/17/2017 Ot Z87.442 PE RSONAL HISTORY OF URINARY CALCULI 11/17/2017 Ot Z87.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 11/17/2017 Ot Z88.5 MARIVEL RGY STATUS TO NARCOTIC AGENT STATUS 11/17/2017 Ot Z88.8 MARIVEL RGY STATUS TO OTH DRUG/MEDS/BIOL SUB 11/17/2017 Ot Z90.79 ACQ UIRED ABSENCE OF OTHER GENITAL ORGAN( 11/17/2017 Ot Z96.611 SD ESENCE OF RIGHT ARTIFICIAL SHOULDER ELIEL 11/17/2017 Ot Z96.641 SD ESENCE OF RIGHT ARTIFICIAL HIP JOINT 11/17/2017 Ot Z96.652 SD ESENCE OF LEFT ARTIFICIAL KNEE JOINT 11/23/2017 Ot E11.9 TYPE 2 DIABETES MELLITUS WITHOUT COMPLIC 11/23/2017 Ot E78.00 PUR E HYPERCHOLESTEROLEMIA, UNSPECIFIED 11/23/2017 Ot I10 ESSENT IAL (PRIMARY) HYPERTENSION 11/23/2017 Ot J44.9 ARTIFICIAL INTELLIGENCE SPECIALIST [place] OBSTRUCTIVE PULMONARY DISEASE, U 11/23/2017 Ot K21.9 NINA RO-ESOPHAGEAL REFLUX DISEASE WITHOUT 11/23/2017 Ot L08.9 LOCA L INFECTION OF THE SKIN AND SUBCUTAN 11/23/2017 Ot M79.641 PA IN IN RIGHT HAND 11/23/2017 Ot S63.91XA S PRAIN OF UNSP PART OF RIGHT WRIST AND H 11/23/2017 Ot W06.XXXA F ALL FROM BED, INITIAL ENCOUNTER 11/23/2017 Ot W22.01XA W ALKED INTO WALL, INITIAL ENCOUNTER 11/23/2017 Ot Z79.51 ELYSE G TERM (CURRENT) USE OF INHALED STERO 11/23/2017 Ot Z79.52 ELYSE G TERM (CURRENT) USE OF SYSTEMIC STER 11/23/2017 Ot Z85.46 PER KATERINA HISTORY OF MALIGNANT NEOPLASM O 11/23/2017 Ot Z86.010 PE RSONAL HISTORY OF COLONIC POLYPS 11/23/2017 Ot Z87.19 PER KATERINA HISTORY OF OTHER DISEASES OF TH 11/23/2017 Ot Z87.442 PE RSONAL HISTORY OF URINARY CALCULI 11/23/2017 Ot Z87.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 11/23/2017 Ot Z88.5 MARIVEL RGY STATUS TO NARCOTIC AGENT STATUS 11/23/2017 Ot Z88.8 MARIVEL RGY STATUS TO OTH DRUG/MEDS/BIOL SUB 11/23/2017 Ot Z90.79 ACQ UIRED ABSENCE OF OTHER GENITAL ORGAN( 11/23/2017 Ot Z96.611 SD ESENCE OF RIGHT ARTIFICIAL SHOULDER ELILE 11/23/2017 Ot Z96.641 SD ESENCE OF RIGHT ARTIFICIAL HIP JOINT 11/23/2017 Ot Z96.652 SD ESENCE OF LEFT ARTIFICIAL KNEE JOINT 12/03/2017 W 783.0 ANOREXIA 12/03/2017 W R63.0 ANOREXIA 12/11/2017 WILLIS NAZARIO DO Ot Z01.818 ENCOUNTER FOR OTHER PREPROCEDURAL EXAMIN 12/12/2017 WILLIS NAZARIO DO Ot G47. 33 OBSTRUCTIVE SLEEP APNEA (ADULT) (PEDIATR 12/12/2017 WILLIS NAZARIO DO Ot J44. 9 CHRONIC OBSTRUCTIVE PULMONARY DISEASE, U 12/12/2017 WILLIS NAAZRIO DO Ot J45.909 UNSPECIFIED ASTHMA, UNCOMPLICATED 12/12/2017 WILLIS NAZARIO DO Ot R05 COUGH 12/12/2017 WILLIS NAZARIO DO Ot Z79. 51 SATELLITE MANAGER (CURRENT) USE OF INHALED STERO 12/12/2017 WILLIS NAZARIO DO Ot Z87.891 PERSONAL HISTORY OF NICOTINE DEPENDENCE 12/12/2017 SCOTTY MEANS APRN Ot J44.9 CHRONIC OBSTRUCTIVE PULMONARY DISEASE, U 12/17/2017 WILLIS NAZARIO DO Ot Z01.818 ENCOUNTER FOR OTHER PREPROCEDURAL EXAMIN 12/17/2017 SCOTTY MEANS APRN Ot J30.9 ALLERGIC RHINITIS, UNSPECIFIED 12/17/2017 SCOTTY MEANS APRN Ot J44.9 CHRONIC OBSTRUCTIVE PULMONARY DISEASE, U 12/17/2017 SCOTTY MEANS APRN Ot J98.4 OTHER DISORDERS OF LUNG 12/18/2017 WILLIS NAZARIO DO Ot G47. 33 OBSTRUCTIVE SLEEP APNEA (ADULT) (PEDIATR 12/18/2017 WILLIS NAZARIO DO Ot J44. 9 CHRONIC OBSTRUCTIVE PULMONARY DISEASE, U 12/18/2017 WILLIS NAZARIO DO Ot J45.909 UNSPECIFIED ASTHMA, UNCOMPLICATED 12/18/2017 WILLIS NAZARIO DO Ot R05 COUGH 12/18/2017 WILLIS NAZARIO DO Ot Z79. 51 GROUP HOME (CURRENT) USE OF INHALED STERO 12/18/2017 WILLIS NAZARIO DO Ot Z87.891 PERSONAL HISTORY OF NICOTINE DEPENDENCE 12/20/2017 SCOTTY MEANS APRN Ot J44.9 CHRONIC OBSTRUCTIVE PULMONARY DISEASE, U 01/03/2018 SCOTTY MEANS APRN Ot J44.9 CHRONIC OBSTRUCTIVE PULMONARY DISEASE, U 01/03/2018 SCOTTY MEANS APRN Ot J44.9 CHRONIC OBSTRUCTIVE PULMONARY DISEASE, U 01/07/2018 W 461.9 ACUT E SINUSITIS, UNSPECIFIED 01/07/2018 W 784.91 POS TNASAL DRIP 01/07/2018 W J01.90 ACU TE SINUSITIS, UNSPECIFIED 01/07/2018 W R09.82 POS TNASAL DRIP 01/08/2018 SCOTTY MEANS APRN Ot J44.9 CHRONIC OBSTRUCTIVE PULMONARY DISEASE, U 01/10/2018 SCOTTY MEANS APRN Ot J30.9 ALLERGIC RHINITIS, UNSPECIFIED 01/10/2018 SCOTTY MEANS APRN Ot J44.9 CHRONIC OBSTRUCTIVE PULMONARY DISEASE, U 01/10/2018 SCOTTY MEANS APRN Ot J98.4 OTHER DISORDERS OF LUNG 01/14/2018 WILLIS NAZARIO DO Ot G47. 33 OBSTRUCTIVE SLEEP APNEA (ADULT) (PEDIATR 01/14/2018 WILLIS NAZARIO DO Ot J44. 9 CHRONIC OBSTRUCTIVE PULMONARY DISEASE, U 01/14/2018 WILLIS NAZARIO DO Ot J45.909 UNSPECIFIED ASTHMA, UNCOMPLICATED 01/14/2018 WILLIS NAZARIO DO Ot R05 COUGH 01/14/2018 WILLIS NAZARIO DO Ot Z79. 51 SATELLITE MANAGER (CURRENT) USE OF INHALED STERO 01/14/2018 WILLIS NAZARIO DO Ot Z87.891 PERSONAL HISTORY OF NICOTINE DEPENDENCE 01/14/2018 SCOTTY MEANS APRN Ot J44.9 CHRONIC OBSTRUCTIVE PULMONARY DISEASE, U 01/15/2018 RADHA LAU Ot 424.1 AORTIC VALVE DISORDER 01/15/2018 KAUSHIK SHEN MD Ot 211.1 BENIGN NEOPLASM STOMACH 01/15/2018 KAUSHIK SHEN MD Ot 530.11 REFLUX ESOPHAGITIS 01/15/2018 KAUSHIK SHEN MD Ot 535.50 UNSP GASTRITIS GASTRODUODENITIS W/O ME 01/15/2018 KAUSHIK SHEN MD Ot 553.3 DIAPHRAGMATIC HERNIA 01/15/2018 HERMELINDA IRVIN, KAUSHIK Ot V72.84 EXAM PRE-OPERATIVE NOS 01/15/2018 SID IRVIN, JOSEPH Merchant Ot 724.5 BACKACHE NOS 01/15/2018 JOSEPH LAU MD Ot 787.0 2 NAUSEA ALONE 01/15/2018 JOSEPH LAU MD Ot 789.0 0 ABDOMINAL PAIN, UNSPECIFIED SITE 01/15/2018 JOSEPH LAU MD Ot 496 CHR AIRWAY OBSTRUCT NEC 01/15/2018 JOESPH LAU MD Ot 496 CHR AIRWAY OBSTRUCT NEC 01/15/2018 JOSEPH LAU MD Ot 786.5 0 CHEST PAIN NOS 01/15/2018 JOSEPH LAU MD Ot 796.4 ABN CLINICAL FINDING NEC 01/15/2018 WILLIS NAZARIO DO Ot 272. 4 HYPERLIPIDEMIA NEC/NOS 01/15/2018 WILLIS NAZARIO DO Ot 401. 9 HYPERTENSION NOS 01/15/2018 WILLIS NAZARIO DO Ot 414. 00 CORON ATHEROSCLER NOS TYPE VESSEL, NATIV 01/15/2018 WILLIS NAZARIO DO Ot 496 CHR AIRWAY OBSTRUCT NEC 01/15/2018 Ot 605 REDUN PREPUCE PHIMOSIS 01/15/2018 Ot 607.1 ARIANNE NOPOSTHITIS 01/15/2018 Ot V72.83 EXA M PRE- OPERATIVE NEC 01/15/2018 Ot V74.8 SCRE EN-BACTERIAL DIS NEC 01/15/2018 ANDIE IRVIN, SAV Valencia Ot 185 MALIGN NEOPL PROSTATE 01/15/2018 GARY GIBBS APRN Ot 786.2 COUGH 01/15/2018 JOSE D IRVIN, DIPESH Wall Ot 185 01/15/2018 KAUSHIK SHEN MD Ot K76.0 FATTY (CHANGE OF) LIVER, NOT ELSEWHERE C 01/15/2018 KAUSHIK SHEN MD Ot R10.11 RIGHT UPPER QUADRANT PAIN 01/15/2018 KAUSHIK SHEN MD Ot K27.9 PEPTIC ULC, SITE UNSP, UNSP AC OR CHR 01/15/2018 KAUSHIK SHEN MD Ot Z01.81 8 ENCOUNTER FOR OTHER PREPROCEDURAL EXAMIN 01/15/2018 KAUSHIK SHEN MD Ot R10.11 RIGHT UPPER QUADRANT PAIN 01/15/2018 KAUSHIK SHEN MD Ot K82.8 OTHER SPECIFIED DISEASES OF GALLBLADDER 01/15/2018 KAUSHIK SHEN MD Ot Z01.81 2 ENCOUNTER FOR PREPROCEDURAL LABORATORY E 01/15/2018 KAUSHIK SHEN MD Ot Z11.2 ENCOUNTER FOR SCREENING FOR OTHER BACTER 01/15/2018 LISSET GRANADO CORPORATE WEBMASTER Ot E78.4 OTHER HYPERLIPIDEMIA 01/15/2018 LISSET GRANADO CORPORATE WEBMASTER Ot I 10 ESSENTIAL (PRIMARY) HYPERTENSION 01/15/2018 LISSET GRANADOP Ot I25.10 ATHSCL HEART DISEASE OF [place] CORONARY 01/15/2018 LISSET GRANADO CORPORATE WEBMASTER Ot I34.0 NONRHEUMATIC MITRAL (VALVE) INSUFFICIENC 01/15/2018 LISSET GRANADO CORPORATE WEBMASTER Ot I35.1 NONRHEUMATIC AORTIC (VALVE) INSUFFICIENC 01/15/2018 LISSET GRANADO CORPORATE WEBMASTER Ot I65.23 OCCLUSION AND STENOSIS OF BILATERAL COBB 01/15/2018 SCOTTY MEANS APRN Ot E87.1 HYPO-OSMOLALITY AND HYPONATREMIA 01/15/2018 SCOTTY MEANS APRN Ot J43.9 EMPHYSEMA, UNSPECIFIED 01/15/2018 CLARY, SCOTTY E SENIOR PRODUCTION SUPERVISOR Ot R63.4 ABNORMAL WEIGHT LOSS 01/15/2018 TIMOTHY MEANSINE Duke SENIOR PRODUCTION SUPERVISOR Ot J44.9 CHRONIC OBSTRUCTIVE PULMONARY DISEASE, U 01/15/2018 TIMOTHY MEANSINE [employer] SENIOR PRODUCTION SUPERVISOR Ot J30.9 ALLERGIC RHINITIS, UNSPECIFIED 01/15/2018 TIMOTHY MEANSINE [employer] SENIOR PRODUCTION SUPERVISOR Ot J44.9 CHRONIC OBSTRUCTIVE PULMONARY DISEASE, U 01/15/2018 TIMOTHY MEANSINE [employer] SENIOR PRODUCTION SUPERVISOR Ot J98.4 OTHER DISORDERS OF LUNG 01/15/2018 TIMOTHY MEANSINE [employer] SENIOR PRODUCTION SUPERVISOR Ot J44.9 CHRONIC OBSTRUCTIVE PULMONARY DISEASE, U 01/15/2018 TIMOTHY MEANSINE [employer] SENIOR PRODUCTION SUPERVISOR Ot J30.9 ALLERGIC RHINITIS, UNSPECIFIED 01/15/2018 TIMOTHY MEANSINE [employer] SENIOR PRODUCTION SUPERVISOR Ot J44.9 CHRONIC OBSTRUCTIVE PULMONARY DISEASE, U 01/15/2018 TIMOTHY MEANSINE [employer] SENIOR PRODUCTION SUPERVISOR Ot J98.4 OTHER DISORDERS OF LUNG 01/16/2018 SCOTTY MEANS SENIOR PRODUCTION SUPERVISOR Ot J44.9 CHRONIC OBSTRUCTIVE PULMONARY DISEASE, U 01/16/2018 SCOTTY MEANS SENIOR PRODUCTION SUPERVISOR Ot R91.1 SOLITARY PULMONARY NODULE 02/02/2018 Contreras, [...] Jesus W K59.09 OTHER CONSTIPATION 02/02/2018 Contreras, Stefanie-Joes De Jesus W R29.818 OTHER SYMPTOMS AND [...] OBSTRUCTIVE PULMONARY DISEASE, U 02/13/2018 SCOTTY MEANS APRN Ot R91.1 SOLITARY PULMONARY NODULE 02/18/2018 SCOTTY MEANS APRN Ot J44.9 CHRONIC OBSTRUCTIVE PULMONARY DISEASE, U 02/18/2018 SCOTTY MEANS DANNY Ot R91.1 SOLITARY PULMONARY NODULE 03/07/2018 W 560.1 PARA LYTIC ILEUS 03/07/2018 W 787.01 NICOLA SEA WITH VOMITING 03/07/2018 W K56.7 ILEU S, UNSPECIFIED 03/07/2018 W R11.2 NAUS EA WITH VOMITING, UNSPECIFIED 03/10/2018 BAIMALISSET L CORPORATE WEBMASTER Ot E78.5 HYPERLIPIDEMIA, UNSPECIFIED 03/10/2018 BAIMA, LISSET L CORPORATE WEBMASTER Ot G47.33 OBSTRUCTIVE SLEEP APNEA (ADULT) (PEDIATR 03/10/2018 BAIMA, LISSET L CORPORATE WEBMASTER Ot I 10 ESSENTIAL (PRIMARY) HYPERTENSION 03/10/2018 BAIMA, LISSET L CORPORATE WEBMASTER Ot R06.09 OTHER FORMS OF DYSPNEA 03/21/2018 FlorezAminata urbanissa A A 682.6 CELLULITIS AND ABSCESS OF LEG, EXCEPT FOOT 03/21/2018AugustFlorezAminata urbanissa A A L03.11 6 CELLULITIS OF LEFT LOWER LIMB 03/28/2018 BAIMA LISSET L CORPORATE WEBMASTER Ot E78.5 HYPERLIPIDEMIA, UNSPECIFIED 03/28/2018 BAIMA, LISSET L CORPORATE WEBMASTER Ot G47.33 OBSTRUCTIVE SLEEP APNEA (ADULT) (PEDIATR 03/28/2018 BAIMA, LISSET L CORPORATE WEBMASTER Ot I 10 ESSENTIAL (PRIMARY) HYPERTENSION 03/28/2018 BAIMA, LISSET L CORPORATE WEBMASTER Ot R06.09 OTHER FORMS OF DYSPNEA 03/29/2018 MALOU ROONEY MD Ot E11.9 TYPE 2 DIABETES MELLITUS WITHOUT COMPLIC 03/29/2018 MALOU ROONEY MD Ot E78.00 PURE HYPERCHOLESTEROLEMIA, UNSPECIFIED 03/29/2018 MALOU ROONEY MD Ot E86.0 DEHYDRATION 03/29/2018 MALOU ROONEY MD Ot I10 ESSENTIAL (PRIMARY) HYPERTENSION 03/29/2018 MALOU ROONEY MD Ot K21.0 GASTRO-ESOPHAGEAL REFLUX DISEASE WITH ES 03/29/2018 MALOU ROONEY MD Ot M25.551 PAIN IN RIGHT HIP 03/29/2018 MALOU ROONEY MD Ot R33.9 RETENTION OF URINE, UNSPECIFIED 03/29/2018 MALOU ROONEY MD Ot S70.01XA CONTUSION OF RIGHT HIP, INITIAL ENCOUNTE 03/29/2018 MALOU ROONEY MD, Ot W18.30XA FALL ON SAME LEVEL, UNSPECIFIED, INITIAL 03/29/2018 MALOU ROONEY MD, Ot Z85.46 PERSONAL HISTORY OF MALIGNANT NEOPLASM O 03/29/2018 MALOU ROONEY MD, Ot Z87.442 PERSONAL HISTORY OF URINARY CALCULI 03/29/2018 MALOU ROONEY MD, Ot Z87.891 PERSONAL HISTORY OF NICOTINE DEPENDENCE 03/29/2018 MALOU ROONEY MD, Ot Z88.5 ALLERGY STATUS TO NARCOTIC AGENT STATUS 03/29/2018 MALOU ROONEY MD, Ot Z88.7 ALLERGY STATUS TO SERUM AND VACCINE STAT 03/29/2018 MALOU ROONEY MD, Ot 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 03/29/2018 MALOU ROONEY MD, Ot Z96.641 PRESENCE OF RIGHT ARTIFICIAL HIP JOINT 03/29/2018 MALOU ROONEY MD, Ot Z96.652 PRESENCE OF LEFT ARTIFICIAL KNEE JOINT 03/30/2018 DELGADO JURADO W 276.1 HYPOSMOLALITY AND/OR HYPONATREMIA 03/30/2018 DELGADO JURADO 564.0 0 CONSTIPATION, UNSPECIFIED 03/30/2018 DELGADO JURADO 780.9 7 ALTERED MENTAL STATUS 03/30/2018 DELGADO JURADO 788.2 0 RETENTION OF URINE, UNSPECIFIED 03/30/2018 DELGADO JURADO E87.1 HYPO-OSMOLALITY AND HYPONATREMIA 03/30/2018 DELGADO JURADO K59.0 0 CONSTIPATION, UNSPECIFIED 03/30/2018 DELGADO JURADO R33.9 RETENTION OF URINE, UNSPECIFIED 03/30/2018 DELGADO JURADO R41.8 2 ALTERED MENTAL STATUS, UNSPECIFIED 04/02/2018 MALOU ROONEY MD Ot E11.9 TYPE 2 DIABETES MELLITUS WITHOUT COMPLIC 04/02/2018 MALOU ROONEY MD, Ot E78.00 PURE HYPERCHOLESTEROLEMIA, UNSPECIFIED 04/02/2018 MALOU ROONEY MD Ot E86.0 DEHYDRATION 04/02/2018 MALOU ROONEY MD Ot I10 ESSENTIAL (PRIMARY) HYPERTENSION 04/02/2018 MALOU ROONEY MD Ot K21.0 GASTRO-ESOPHAGEAL REFLUX DISEASE WITH ES 04/02/2018 MALOU ROONEY MD Ot M25.551 PAIN IN RIGHT HIP 04/02/2018 MALOU ROONEY MD Ot R33.9 RETENTION OF URINE, UNSPECIFIED 04/02/2018 MALOU ROONEY MD Ot S70.01XA CONTUSION OF RIGHT HIP, INITIAL ENCOUNTE 04/02/2018 MALOU ROONEY MD Ot W18.30XA FALL ON SAME LEVEL, UNSPECIFIED, INITIAL 04/02/2018 MALOU ROONEY MD Ot Z85.46 PERSONAL HISTORY OF MALIGNANT NEOPLASM O 04/02/2018 MALOU ROONEY MD Ot Z87.442 PERSONAL HISTORY OF URINARY CALCULI 04/02/2018 MALOU ROONEY MD Ot Z87.891 PERSONAL HISTORY OF NICOTINE DEPENDENCE 04/02/2018 MALOU ROONEY MD, Ot Z88.5 ALLERGY STATUS TO NARCOTIC AGENT STATUS 04/02/2018 MALOU ROONEY MD, Ot Z88.7 ALLERGY STATUS TO SERUM AND VACCINE STAT 04/02/2018 MALOU ROONEY MD Ot 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 04/02/2018 MALOU ROONEY MD Ot Z96.641 PRESENCE OF RIGHT ARTIFICIAL HIP JOINT 04/02/2018 MALOU ROONEY MD Ot Z96.652 PRESENCE OF LEFT ARTIFICIAL KNEE JOINT 04/05/2018 LISSET GRANADOP Ot E78.5 HYPERLIPIDEMIA, UNSPECIFIED 04/05/2018 LISSET GRANADO CORPORATE WEBMASTER Ot G47.33 OBSTRUCTIVE SLEEP APNEA (ADULT) (PEDIATR 04/05/2018 LISSET GRANADO CORPORATE WEBMASTER Ot I 10 ESSENTIAL (PRIMARY) HYPERTENSION 04/05/2018 LISSET GRANADOP Ot R06.09 OTHER FORMS OF DYSPNEA 05/02/2018 W 263 OTHER AND UNSPECIFIED PROTEIN-[place] MALNUTRITION 05/02/2018 W 401.0 [place] GNANT ESSENTIAL HYPERTENSION 05/02/2018 W 414.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 OF [place] CORONARY ARTERY 05/02/2018 W 427.31 ATR IAL FIBRILLATION 05/02/2018 W 491.20 OBS TRUCTIVE CHRONIC BRONCHITIS, WITHOUT EXACERBATION 05/02/2018 W E46 UNSPEC IFIED PROTEIN- [place] MALNUTRITION 05/02/2018 W I10 ESSENT IAL (PRIMARY) HYPERTENSION 05/02/2018 W I25.10 ATH SCL HEART DISEASE OF [place] CORONARY ARTERY W/O ANG PCTRS 05/02/2018 W I48.91 UNS PECIFIED ATRIAL FIBRILLATION 05/02/2018 W J44.9 ARTIFICIAL INTELLIGENCE SPECIALIST [place] OBSTRUCTIVE PULMONARY DISEASE, UNSPECIFIED 05/02/2018 W V54.81 05/02/2018 W Z47.1 AFTE RCARE FOLLOWING JOINT REPLACEMENT SURGERY 05/02/2018 W V43.65 KNE E JOINT REPLACED BY OTHER MEANS 05/02/2018 A V54.81 AFT ERCARE FOLLOWING JOINT REPLACEMENT 05/02/2018 A Z47.1 AFTE RCARE FOLLOWING JOINT REPLACEMENT SURGERY 05/02/2018 W Z96.651 SD ESENCE OF RIGHT ARTIFICIAL KNEE JOINT 05/22/2018 W 461.9 ACUT E SINUSITIS, UNSPECIFIED 05/22/2018 W J01.90 ACU TE SINUSITIS, UNSPECIFIED 06/19/2018 W 272.4 OTHE R AND UNSPECIFIED HYPERLIPIDEMIA 06/19/2018 W 715.11 OST EOARTHROSIS, LOCALIZED, PRIMARY, INVOLVING SHOULDER REGION 06/19/2018 W 715.16 OST EOARTHROSIS, LOCALIZED, PRIMARY, INVOLVING LOWER LEG 06/19/2018 W 719.41 GWEN N IN JOINT INVOLVING SHOULDER REGION 06/19/2018 W 726.2 OTHE R AFFECTIONS OF SHOULDER REGION, NOT ELSEWHERE CLASSIFIED 06/19/2018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 [...] Negative Urine-Blood Negative Negative Urine-Color Yellow Colorless-[place] Urine-Epithelial Cells 0-5/HPF Urine-Glucose Negative Negative Urine-Ketones Negative Negative Urine-Leukocytes Negative Negative Urine-Nitrite Negative Negative Urine-pH 5.5 5-8.5 Urine-Protein Negative Negative Urine-RBC 0-2/HPF Urine-Specific [place] 1.010 1.000-1 .030 Urine-WBC 0-2/HPF Urobilinogen 0.2 0.2-1.0 Comprehensive Metabolic [...] Negative Urine-Blood Negative Negative Urine-Color Yellow Colorless-[place] Urine-Epithelial Cells 0-5/HPF Urine-Glucose Negative Negative Urine-Ketones 1+ Negative Urine-Leukocytes Negative Negative Urine-Mucus Occasional Urine-Nitrite Negative Negative Urine-Other Urine Saved if Culture Need ed (48hrs from time of collection) Urine-pH 5.5 5-8.5 Urine-Protein 1+ Negative Urine-RBC 0-2/HPF Urine-Specific [place] >=1.030 1.000-1 .030 Urine-WBC 0-2/HPF Urobilinogen 1.0 E.U./dL 0.2-1.0 Cardiac Panel - 01/22/17 12:39 CK 137 U/L 26-174 CK-MB 2.9 ng/ml 0.0-9.2 Myoglobin 235.1 ng/ml 1.6-154.9 Troponin <0.020 ng/mL 0.0-0.4 Complete blood count (CBC) with automate d white blood cell (WBC) differential - 10/20/17 21:05 Blood leukocytes automated count (number/volume) 7.9 10*3/uL 4.3-11.0 Blood erythrocytes automated count (number/volume) 4.39 10*6/uL 4.35-5.85 Venous blood hemoglobin measurement (mass/volume) 13.3 g/dL 13.3-17.7 Blood hematocrit (volume fraction) 37 % 40-54 Automated erythrocyte mean corpuscular volume 85 [ foz_us] 80-99 Automated erythrocyte mean corpuscular h emoglobin (mass per erythrocyte) 30 pg 25-34 Automated erythrocyte mean corpuscular h emoglobin concentration measurement (mass/volume) 36 g/dL 32-36 Automated erythrocyte distribution width ratio 12. 9 % 10.0- 14.5 Automated blood platelet count [...] 10*3 1.0-4.0 Blood monocytes automated count (number/volume) 0. 8 10*3 0.0-1.0 Automated eosinophil count 0.1 10*3/uL 0 .0-0.3 Automated blood basophil count (count/volume) 0.0 10*3/uL 0.0-0.1 Comprehensive metabolic panel - 10/20/17 21:05 Serum or plasma sodium measurement (moles/volume) 125 mmol/L 135-145 Serum or plasma potassium measurement (moles/volume) 4.1 mmol/L 3.6-5.0 Serum or plasma chloride measurement (moles/volume) 92 mmol/L 98-107 Carbon dioxide 19 mmol/L 21-32 Serum or plasma anion gap determination (moles/volume) 14 mmol/L 5-14 Serum or plasma urea nitrogen measurement (mass/volume ) 16 mg/dL 7-18 Serum or plasma creatinine measurement (mass/volume) 1.18 mg/dL 0.60-1.30 Serum or plasma urea nitrogen/creatinine mass ratio 14 NRG Serum or plasma creatinine measurement w ith calculation of estimated glomerular filtration rate > NRG Serum or plasma glucose measurement (mass/volume) 93 mg/dL 70-105 Serum or plasma calcium measurement (mass/volume) 10.2 mg/dL 8.5-10.1 Serum or plasma total bilirubin measurement (mass/volu me) 0.9 mg/dL 0.1-1.0 Serum or plasma alkaline phosphatase yuri surement (enzymatic activity/volume) 50 U/L 40-136 Serum or plasma aspartate aminotransfera se measurement (enzymatic activity/volume) 30 U/L 5-34 Serum or plasma alanine aminotransferase measurement (enzymatic activity/volume) 15 U/L 0-55 Serum or plasma protein measurement (mass/volume) 7.0 g/dL 6.4-8.2 Serum or plasma albumin measurement (mass/volume) 4.4 g/dL 3.2-4.5 Serum or plasma amylase measurement (enz ymatic activity/volume) - 10/20/17 21:05 Serum or plasma amylase measurement (enzymatic activit y/volume) 62 U/L 25-125 Lipase - 10/20/17 21:05 Lipase 17 U/L 8-78 Sputum Gram stain - 12/12/17 07:44 Sputum Gram stain REPORTED 12-12-2017, 1505. NRG Bacteria identification in bronchial spe cimen by aerobe culture - 12/12/17 07:44 Bacteria identification in bronchial specimen by aerob e culture NORMAL NRG C FUNGUS SPUTUM FLUID TISSUE - 12/12/17 07:44 FUNGUS REPORT NO FUNGUS GROWTH OBSERVED NRG Sputum Gram stain - 12/12/17 07:45 Sputum Gram stain No bacteria seen NRG Bacteria identification in bronchial spe cimen by aerobe culture - 12/12/17 07:45 Bacteria identification in bronchial specimen by aerob e culture NG NRG C FUNGUS SPUTUM FLUID TISSUE - 12/12/17 07:45 FUNGUS REPORT NO FUNGUS GROWTH OBSERVED NRG Mycobacterium species detection by organ ism specific culture - 12/12/17 07:46 QUANTITY OF GROWTH . NRG Mycobacterium species detection by organism specific c tila SEE [facility] [id number] - 01/15/18 14:13 Serum or plasma urea nitrogen measurement (mass/volume ) 19 mg/dL 718 Serum or plasma creatinine measurement (mass/volume) 1.51 mg/dL 0.60-1.30 Serum or plasma urea nitrogen/creatinine mass ratio 13 NRG Serum or plasma creatinine measurement w ith calculation of estimated glomerular filtration rate 46 NR Creatinine - 01/30/18 14:58 Creat 1.33 mg/dL [...] 5-14 Serum or plasma urea nitrogen measurement (mass/volume ) 39 mg/dL 7-18 Serum or plasma creatinine measurement (mass/volume) 1.78 mg/dL 0.60-1.30 Serum or plasma urea nitrogen/creatinine mass ratio 22 NRG Serum or plasma creatinine measurement w ith calculation of estimated glomerular filtration rate 38 NRG Serum or plasma glucose measurement (mass/volume) 122 mg/dL 70-105 Serum or plasma calcium measurement (mass/volume) 10.1 mg/dL 8.5-10.1 Serum or plasma total bilirubin measurement (mass/volu me) 0.7 mg/dL 0.1-1.0 Serum or plasma alkaline phosphatase yuri surement (enzymatic activity/volume) 58 U/L 40-136 Serum or plasma aspartate aminotransfera se measurement (enzymatic activity/volume) 53 U/L 5-34 Serum or plasma alanine aminotransferase measurement (enzymatic activity/volume) 25 U/L 0-55 Serum or plasma protein measurement (mass/volume) 6.8 g/dL 6.4-8.2 Serum or plasma albumin measurement (mass/volume) 3.6 g/dL 3.2-4.5 CALCIUM CORRECTED 10.4 mg/dL 8.5-10.1 Complete blood count (CBC) with automate d white blood cell (WBC) differential - 03/29/18 09:30 Blood leukocytes automated count (number/volume) 12.8 10*3/uL 4.3-11.0 Blood erythrocytes automated count (number/volume) 3.72 10*6/uL 4.35-5.85 Venous blood hemoglobin measurement (mass/volume) 10.8 g/dL 13.3-17.7 Blood hematocrit (volume fraction) 31 % 40-54 Automated erythrocyte mean corpuscular volume 84 [ foz_us] 80-99 Automated erythrocyte mean corpuscular h emoglobin (mass per erythrocyte) 29 pg 25-34 Automated erythrocyte mean corpuscular h emoglobin concentration measurement (mass/volume) 35 g/dL 32-36 Automated erythrocyte distribution width ratio 13. 0 % 10.0- 14.5 Automated blood platelet count [...] 10*3 1.0-4.0 Blood monocytes automated count (number/volume) 1. 3 10*3 0.0-1.0 Automated eosinophil count 0.2 10*3/uL 0 .0-0.3 Automated blood basophil count (count/volume) 0.1 10*3/uL 0.0-0.1 Blood manual differential performed dete ction - 03/29/18 09:30 Blood monocytes/100 leukocytes 9 % NRG Manual blood segmented neutrophils/100 leukocytes 79 % NRG Manual blood lymphocytes/100 leukocytes 11 % NRG Manual eosinophils/100 leukocytes in nose 1 % NRG Blood erythrocyte morphology finding identification NORMAL NRG Blood platelet adequacy detection by light microscopy INCREASED NRG Bacterial blood culture - 03/29/18 09:30 Bacterial blood culture NG NRG Blood lactic acid measurement (moles/vol ume) - 03/29/18 09:58 Blood lactic acid measurement (moles/volume) 0.84 mmol/L 0.50-2.00 Complete urinalysis with reflex to cultu re - 03/29/18 10:52 Urine color determination YELLOW NRG Urine clarity determination CLEAR NR G Urine pH measurement by test strip 6.5 5-9 Specific gravity of urine by test strip 1.010 1.016-1.022 Urine protein assay by test strip, semi-quantitative NEGATIVE NEGATIVE Urine glucose detection by automated test strip NE GATIVE NEGATIVE Erythrocytes detection in urine sediment by light micr oscopy NEGATIVE NEGATIVE Urine ketones detection by automated test strip NE GATIVE NEGATIVE Urine nitrite detection by test strip NEGATIVE NEGATIVE Urine total bilirubin detection by test strip NEGA TIVE NEGATIVE Urine urobilinogen measurement by automated test strip (mass/volume) NORMAL NORMAL Urine leukocyte esterase detection by dipstick NEG ATIVE NEGATIVE Automated urine sediment erythrocyte cou nt by microscopy (number/high power field) NONE NRG Automated urine sediment leukocyte count by microscopy (number/high power field) NONE NRG Bacteria detection in urine sediment by light microsco py NEGATIVE NRG Crystals detection in urine sediment by light microsco py NONE NRG Casts detection in urine sediment [...] ng/mL 0.0-0.4 Thyroid Stimulating Hormone - 03/30/18 1 1:27 TSH 0.68 mIU/mL 0.32-5.00 Urinalysis - 03/30/18 12:35 Icotest N/A Negative Urine Volume Urine Volume Sufficient (10mL) Urine Yeast No Yeast present Urine-Appearance Clear Clear Urine-Bacteria Negative Urine-Bilirubin Negative Negative Urine-Blood Trace-lysed Negative Urine-Color Yellow Colorless-[place] Urine-Glucose Negative Negative Urine-Ketones Negative Negative Urine-Leukocytes Negative Negative Urine-Nitrite Negative Negative Urine-Other Urine Saved if Culture Need ed (48hrs from time of collection) Urine-pH 7.0 5-8.5 Urine-Protein 1+ Negative Urine-RBC Negative Urine-Specific [place] 1.020 1.000-1 .030 Urine-WBC Rare/HPF Urobilinogen 0.2 E.U./dL 0.2-1.0 Urine Culture - 03/30/18 15:17 PRELIM CULTURE RESULTS No Growth 24 hours FINAL CULTURE RESULTS No Growth 48 hours MEDIA PLATED Setup at 15:25 on 03/30/2018 CULTURE SOURCE URINE [place] Complete blood count (CBC) with automate d white blood cell (WBC) differential - 11/07/18 09:53 Blood leukocytes automated count (number/volume) 6.3 10*3/uL 4.3-11.0 Blood erythrocytes automated count (number/volume) 4.69 10*6/uL 4.35-5.85 Venous blood hemoglobin measurement (mass/volume) 13.1 g/dL 13.3-17.7 Blood hematocrit (volume fraction) 39 % 40-54 Automated erythrocyte mean corpuscular volume 83 [ foz_us] 80-99 Automated erythrocyte mean corpuscular h emoglobin (mass per erythrocyte) 28 pg 25-34 Automated erythrocyte mean corpuscular h emoglobin concentration measurement (mass/volume) 34 g/dL 32-36 Automated erythrocyte distribution width ratio 14. 4 % 10.0- 14.5 Automated blood platelet count (count/volume) 247 10*3/uL 130-400 Automated blood platelet mean volume measurement 9.6 [foz_us] 7.4-10.4 Automated blood neutrophils/100 leukocytes 54 % 42-75 Automated blood lymphocytes/100 leukocytes 32 % 12-44 Blood monocytes/100 leukocytes 11 % 0-12 Automated blood eosinophils/100 leukocytes 3 % 0-10 Automated blood basophils/100 leukocytes 1 % 0-10 Blood neutrophils automated count (number/volume) 3.4 10*3 1.8-7.8 Blood lymphocytes automated count (number/volume) 2.0 10*3 1.0-4.0 Blood monocytes automated count (number/volume) 0. 7 10*3 0.0-1.0 Automated eosinophil count 0.2 10*3/uL 0 .0-0.3 Automated blood basophil count (count/volume) 0.1 10*3/uL 0.0-0.1 Comprehensive metabolic panel - 11/07/18 09:53 Serum or plasma sodium measurement (moles/volume) 138 mmol/L 135-145 Serum or plasma potassium measurement (moles/volume) 4.4 mmol/L 3.6-5.0 Serum or plasma chloride measurement (moles/volume) 104 mmol/L 98-107 Carbon dioxide 25 mmol/L 21-32 Serum or plasma anion gap determination (moles/volume) 9 mmol/L 5-14 Serum or plasma urea nitrogen measurement (mass/volume ) 15 mg/dL 7-18 Serum or plasma creatinine measurement (mass/volume) 1.06 mg/dL 0.60-1.30 Serum or plasma urea nitrogen/creatinine mass ratio 14 NRG Serum or plasma creatinine measurement w ith calculation of estimated glomerular filtration rate > NRG Serum or plasma glucose measurement (mass/volume) 109 mg/dL 70-105 Serum or plasma calcium measurement (mass/volume) 10.0 mg/dL 8.5-10.1 Serum or plasma total bilirubin measurement (mass/volu me) 0.6 mg/dL 0.1-1.0 Serum or plasma alkaline phosphatase yuri surement (enzymatic activity/volume) 80 U/L 40-136 Serum or plasma aspartate aminotransfera se measurement (enzymatic activity/volume) 23 U/L 5-34 Serum or plasma alanine aminotransferase measurement (enzymatic activity/volume) 19 U/L 0-55 Serum or plasma protein measurement (mass/volume) 6.8 g/dL 6.4-8.2 Serum or plasma albumin measurement (mass/volume) 4.0 g/dL 3.2-4.5 CALCIUM CORRECTED 10.0 mg/dL 8.5-10.1 Magnesium - 11/07/18 09:53 Magnesium 1.8 mg/dL 1.8-2.4 PT panel in platelet poor plasma by coag ulation assay - 11/07/18 09:53 Prothrombin time (PT) in platelet poor plasma by coagu lation assay 14.0 s 12.2-14.7 INR in platelet poor plasma or blood by coagulation as say 1.0 0.8-1.4 Activated partial thromboplastin time (a PTT) in platelet poor plasma bycoagulation assay - 11/07/18 09:53 Activated partial thromboplastin time (a PTT) in platelet poor plasma bycoagulation assay 30 s 24-35 Automated blood complete blood count (he mogram) panel - 11/25/18 16:23 Blood leukocytes automated count (number/volume) 8.6 10*3/uL 4.3-11.0 Blood erythrocytes automated count (number/volume) 4.47 10*6/uL 4.35-5.85 Venous blood hemoglobin measurement (mass/volume) 12.4 g/dL 13.3-17.7 Blood hematocrit (volume fraction) 37 % 40-54 Automated erythrocyte mean corpuscular volume 83 [ foz_us] 80-99 Automated erythrocyte mean corpuscular h emoglobin (mass per erythrocyte) 28 pg 25-34 Automated erythrocyte mean corpuscular h emoglobin concentration measurement (mass/volume) 34 g/dL 32-36 Automated erythrocyte distribution width ratio 14. 0 % 10.0- 14.5 Automated blood platelet count (count/volume) 221 10*3/uL 130-400 Automated blood platelet mean volume measurement 10.3 [foz_us] 7.4-10.4 Liver function panel (serum or plasma al k phos, alb, total and direct bili, total protein, ALT, AST) - 11/25/18 16:23 Serum or plasma total bilirubin measurement (mass/volu me) 0.5 mg/dL 0.1-1.0 Serum or plasma alkaline phosphatase yuri surement (enzymatic activity/volume) 98 U/L 40-136 Serum or plasma aspartate aminotransfera se measurement (enzymatic activity/volume) 27 U/L 5-34 Serum or plasma alanine aminotransferase measurement (enzymatic activity/volume) 21 U/L 0-55 Serum or plasma protein measurement (mass/volume) 6.7 g/dL 6.4-8.2 Serum or plasma albumin measurement (mass/volume) 3.9 g/dL 3.2-4.5 Bilirubin direct 0.2 mg/dL 0.0-0.3 Serum or plasma indirect bilirubin measurement (mass/v olume) 0.3 mg/dL NRG Whole blood basic metabolic panel - 11/07 16:23 Serum or plasma sodium measurement (moles/volume) 134 mmol/L 135-145 Serum or plasma potassium measurement (moles/volume) 4.5 mmol/L 3.6-5.0 Serum or plasma chloride measurement (moles/volume) 102 mmol/L 98-107 Carbon dioxide 23 mmol/L 21-32 Serum or plasma anion gap determination (moles/volume) 9 mmol/L 5-14 Serum or plasma urea nitrogen measurement (mass/volume ) 16 mg/dL 7-18 Serum or plasma creatinine measurement (mass/volume) 0.99 mg/dL 0.60-1.30 Serum or plasma urea nitrogen/creatinine mass ratio 16 NRG Serum or plasma creatinine measurement w ith calculation of estimated glomerular filtration rate > NRG Serum or plasma glucose measurement (mass/volume) 112 mg/dL 70-105 Serum or plasma calcium measurement (mass/volume) 9.3 mg/dL 8.5-10.1 Serum or plasma ethanol measurement (mas s/volume) - 11/25/18 16:23 Serum or plasma ethanol measurement (mass/volume) < mg/dL <10 Blood type T Indirect antibody screen pa sarah - 11/25/18 16:37 WRISTBAND NUMBER [id number] NRG ABO+Rh group BP NRG Blood group antibody screen NEGATIVE NR G Complete urinalysis with reflex to cultu re - 11/25/18 20:00 Urine color determination YELLOW NRG Urine clarity determination CLEAR NR G Urine pH measurement by test strip 6.5 5-9 Specific gravity of urine by test strip 1.005 1.016-1.022 Urine protein assay by test strip, semi-quantitative NEGATIVE NEGATIVE Urine glucose detection by automated test strip NE GATIVE NEGATIVE Erythrocytes detection in urine sediment by light micr oscopy 1+ NEGATIVE Urine ketones detection by automated test strip NE GATIVE NEGATIVE Urine nitrite detection by test strip NEGATIVE NEGATIVE Urine total bilirubin detection by test strip NEGA TIVE NEGATIVE Urine urobilinogen measurement by automated test strip (mass/volume) NORMAL NORMAL Urine leukocyte esterase detection by dipstick NEG ATIVE NEGATIVE Automated urine sediment erythrocyte cou nt by microscopy (number/high power field) NONE NRG Automated urine sediment leukocyte count by microscopy (number/high power field) NONE NRG Bacteria detection in urine sediment by light microsco py TRACE NRG Crystals detection in urine sediment by light microsco py NONE NRG Casts detection in urine sediment by light microscopy NONE NRG Mucus detection in urine sediment by light microscopy NEGATIVE NRG Complete urinalysis with reflex to culture NO NRG Complete blood count (CBC) with automate d white blood cell (WBC) differential - 11/26/18 03:28 Blood leukocytes automated count (number/volume) 7.5 10*3/uL 4.3-11.0 Blood erythrocytes automated count (number/volume) 4.89 10*6/uL 4.35-5.85 Venous blood hemoglobin measurement (mass/volume) 13.4 g/dL 13.3-17.7 Blood hematocrit (volume fraction) 41 % 40-54 Automated erythrocyte mean corpuscular volume 83 [ foz_us] 80-99 Automated erythrocyte mean corpuscular h emoglobin (mass per erythrocyte) 27 pg 25-34 Automated erythrocyte mean corpuscular h emoglobin concentration measurement (mass/volume) 33 g/dL 32-36 Automated erythrocyte distribution width ratio 14. 3 % 10.0- 14.5 Automated blood platelet count (count/volume) 196 10*3/uL 130-400 Automated blood platelet mean volume measurement 10.5 [foz_us] 7.4-10.4 Automated blood neutrophils/100 leukocytes 61 % 42-75 Automated blood lymphocytes/100 leukocytes 24 % 12-44 Blood monocytes/100 leukocytes 12 % 0-12 Automated blood eosinophils/100 leukocytes 2 % 0-10 Automated blood basophils/100 leukocytes 0 % 0-10 Blood neutrophils automated count (number/volume) 4.6 10*3 1.8-7.8 Blood lymphocytes automated count (number/volume) 1.8 10*3 1.0-4.0 Blood monocytes automated count (number/volume) 0. 9 10*3 0.0-1.0 Automated eosinophil count 0.1 10*3/uL 0 .0-0.3 Automated blood basophil count (count/volume) 0.0 10*3/uL 0.0-0.1 Comprehensive metabolic panel - 11/26/18 03:28 Serum or plasma sodium measurement (moles/volume) 140 mmol/L 135-145 Serum or plasma potassium measurement (moles/volume) 4.4 mmol/L 3.6-5.0 Serum or plasma chloride measurement (moles/volume) 105 mmol/L 98-107 Carbon dioxide 23 mmol/L 21-32 Serum or plasma anion gap determination (moles/volume) 12 mmol/L 5-14 Serum or plasma urea nitrogen measurement (mass/volume ) 14 mg/dL 7-18 Serum or plasma creatinine measurement (mass/volume) 0.98 mg/dL 0.60-1.30 Serum or plasma urea nitrogen/creatinine mass ratio 14 NRG Serum or plasma creatinine measurement w ith calculation of estimated glomerular filtration rate > NRG Serum or plasma glucose measurement (mass/volume) 110 mg/dL 70-105 Serum or plasma calcium measurement (mass/volume) 9.9 mg/dL 8.5-10.1 Serum or plasma total bilirubin measurement (mass/volu me) 0.5 mg/dL 0.1-1.0 Serum or plasma alkaline phosphatase yuri surement (enzymatic activity/volume) 107 U/L 40-136 Serum or plasma aspartate aminotransfera se measurement (enzymatic activity/volume) 34 U/L 5-34 Serum or plasma alanine aminotransferase measurement (enzymatic activity/volume) 18 U/L 0-55 Serum or plasma protein measurement (mass/volume) 7.1 g/dL 6.4-8.2 Serum or plasma albumin measurement (mass/volume) 4.0 g/dL 3.2-4.5 CALCIUM CORRECTED 9.9 mg/dL 8.5-10.1 Cardiac Panel - 12/06/18 04:00 CK 77 U/L 26-174 CK-MB 1.7 ng/ml 0.0-9.2 Myoglobin 33.4 ng/ml 1.6-154.9 Troponin <0.020 ng/mL 0.0-0.4 EKG - 12/06/18 04:44 EKG Complete Complete blood count (CBC) with automate d white blood cell (WBC) differential - 12/06/18 13:49 Blood leukocytes automated count (number/volume) 5.3 10*3/uL 4.3-11.0 Blood erythrocytes automated count (number/volume) 4.10 10*6/uL 4.35-5.85 Venous blood hemoglobin measurement (mass/volume) 11.1 g/dL 13.3-17.7 Blood hematocrit (volume fraction) 34 % 40-54 Automated erythrocyte mean corpuscular volume 83 [ foz_us] 80-99 Automated erythrocyte mean corpuscular h emoglobin (mass per erythrocyte) 27 pg 25-34 Automated erythrocyte mean corpuscular h emoglobin concentration measurement (mass/volume) 33 g/dL 32-36 Automated erythrocyte distribution width ratio 14. 1 % 10.0- 14.5 Automated blood platelet count (count/volume) 279 10*3/uL 130-400 Automated blood platelet mean volume measurement 9.2 [foz_us] 7.4-10.4 Automated blood neutrophils/100 leukocytes 63 % 42-75 Automated blood lymphocytes/100 leukocytes 21 % 12-44 Blood monocytes/100 leukocytes 12 % 0-12 Automated blood eosinophils/100 leukocytes 3 % 0-10 Automated blood basophils/100 leukocytes 1 % 0-10 Blood neutrophils automated count (number/volume) 3.3 10*3 1.8-7.8 Blood lymphocytes automated count (number/volume) 1.1 10*3 1.0-4.0 Blood monocytes automated count (number/volume) 0. 6 10*3 0.0-1.0 Automated eosinophil count 0.2 10*3/uL 0 .0-0.3 Automated blood basophil count (count/volume) 0.0 10*3/uL 0.0-0.1 Comprehensive metabolic panel - 12/06/18 13:49 Serum or plasma sodium measurement (moles/volume) 139 mmol/L 135-145 Serum or plasma potassium measurement (moles/volume) 3.9 mmol/L 3.6-5.0 Serum or plasma chloride measurement (moles/volume) 107 mmol/L 98-107 Carbon dioxide 23 mmol/L 21-32 Serum or plasma anion gap determination (moles/volume) 9 mmol/L 5-14 Serum or plasma urea nitrogen measurement (mass/volume ) 12 mg/dL 7-18 Serum or plasma creatinine measurement (mass/volume) 0.95 mg/dL 0.60-1.30 Serum or plasma urea nitrogen/creatinine mass ratio 13 NRG Serum or plasma creatinine measurement w ith calculation of estimated glomerular filtration rate > NRG Serum or plasma glucose measurement (mass/volume) 106 mg/dL 70-105 Serum or plasma calcium measurement (mass/volume) 8.9 mg/dL 8.5-10.1 Serum or plasma total bilirubin measurement (mass/volu me) 0.5 mg/dL 0.1-1.0 Serum or plasma alkaline phosphatase yuri surement (enzymatic activity/volume) 115 U/L 40-136 Serum or plasma aspartate aminotransfera se measurement (enzymatic activity/volume) 33 U/L 5-34 Serum or plasma alanine aminotransferase measurement (enzymatic activity/volume) 33 U/L 0-55 Serum or plasma protein measurement (mass/volume) 6.5 g/dL 6.4-8.2 Serum or plasma albumin measurement (mass/volume) 3.6 g/dL 3.2-4.5 CALCIUM CORRECTED 9.2 mg/dL 8.5-10.1 Serum or plasma lithium measurement (mol es/volume) - 12/06/18 13:49 BNP PT 54.4 pg/mL <100.0 THYROID STIMULATING HORMONE - 12/06/18 1 3:49 THYROID STIMULATING HORMONE 3.98 u[iU]/mL 0.35-4.94 Serum or plasma thyroxine (T4) free estelita urement (mass/volume) - 12/06/18 13:49 Serum or plasma thyroxine (T4) free measurement (mass/ volume) 0.99 ng/dL 0.70-1.48 BNP - 12/07/18 06:52 BNP 81.20 pg/ml 0.00-100.00 MRSA Screen - 12/07/18 06:52 FINAL CULTURE RESULTS MRSA Negative Nasal Culture MEDIA PLATED Setup at 09:54 on 12/07/2018 EKG - 12/07/18 10:42 EKG Complete Urinalysis - 12/07/18 12:43 Icotest N/A Negative Urine Volume Urine Volume Sufficient (10mL) Urine-Appearance Clear Clear Urine-Bacteria 1+ Urine-Bilirubin Negative Negative Urine-Blood Negative Negative Urine-Color Yellow Colorless-[place] Urine-Epithelial Cells 0-5/HPF Urine-Glucose Negative Negative Urine-Ketones Negative Negative Urine-Leukocytes Negative Negative Urine-Mucus 2+ Urine-Nitrite Negative Negative Urine-Other Urine Saved if Culture Need ed (48hrs from time of collection) Urine-pH 5.5 5-8.5 Urine-Protein Negative Negative Urine-RBC 0-5/HPF Urine-Specific [place] 1.020 1.000-1 .030 Urine-WBC 0-2/HPF Urobilinogen 0.2 E.U./dL 0.2-1.0 BMP - 12/08/18 05:15 Anion Gap 12 6-14 BUN 17 mg/dL 5-25 Calcium 8.7 mg/dL 8.3-10.4 Chloride 108 mmol/L 95-114 CO2 26 mEq/L 22-33 Creat 0.91 mg/dL 0.50-1.50 eGFR 82 mL/min/1.73m2 >59 Glucose 91 mg/dL 70-110 Osmo 294 280-295 Potassium 4.2 mmol/L 3.5-5.3 Sodium 142 mmol/L 134-148 Thyroid Stimulating Hormone - 12/16/18 1 0:55 TSH 2.04 mIU/mL 0.32-5.00 Urinalysis - 12/16/18 10:55 Icotest N/A Negative Urine Volume Urine Volume Sufficient (10mL) Urine-Appearance Clear Clear Urine-Bacteria Negative Urine-Bilirubin Negative Negative Urine-Blood Negative Negative Urine-Color Yellow Colorless-Lt. [place] ow Urine-Epithelial Cells 0-5/HPF Urine-Glucose Negative Negative Urine-Ketones Negative Negative Urine-Leukocytes Negative Negative Urine-Nitrite Negative Negative Urine-Other Urine Saved if Culture Need ed (48hrs from time of collection) Urine-pH 6.0 5-8.5 Urine-Protein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
== END 2019-06-11 10:22 | disposition left against medical advice (07) ==
LOC: CSD 23:03
PROVIDERS: ADMIT Family Medicine; ATTEND Family Medicine
DX: R07.9 Chest pain, unspecified (principal); R55 Syncope and collapse; R50.9 Fever, unspecified; I10 Essential (primary) hypertension; S69.90XA Unspecified injury of unspecified wrist, hand and finger(s), initial encounter; K21.9 Gastro-esophageal reflux disease without esophagitis; J44.9 Chronic obstructive pulmonary disease, unspecified; E66.9 Obesity, unspecified; E03.9 Hypothyroidism, unspecified; N52.9 Male erectile dysfunction, unspecified; G47.33 Obstructive sleep apnea (adult) (pediatric); F41.9 Anxiety disorder, unspecified; F32.9 Major depressive disorder, single episode, unspecified; Z99.89 Dependence on other enabling machines and devices; Z87.891 Personal history of nicotine dependence; Z88.5 Allergy status to narcotic agent; Z79.891 Long term (current) use of opiate analgesic; Z79.899 Other long term (current) drug therapy; Z68.33 Body mass index [BMI] 33.0-33.9, adult
CPT/HCPCS: 36415; 80053; 84484; 85025; 93005; 99211

== ENCOUNTER 2019-07-01 15:54 | Emergency (ER) | payer MEDICARE, MEDICAID ==
[~2019-07-01] VITALS: Ht 175 cm; Wt 91.0 kg
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
[2019-07-01 16:20] LABS: BASOPHILS % (AUTO) 0 % (0-10); EOSINOPHILS # (AUTO) 0.2 10^3/uL (0.0-0.3); EOSINOPHILS % (AUTO) 2 % (0-10); HEMATOCRIT 40 % (40-54); HEMOGLOBIN 12.8 G/DL (13.3-17.7); LYMPHOCYTES # (AUTO) 1.9 X 10^3 (1.0-4.0); LYMPHOCYTES % (AUTO) 21 % (12-44); MEAN CORPUSCULAR HEMOGLOBIN 26 PG (25-34); MEAN CORPUSCULAR HGB CONC 32 G/DL (32-36); MEAN CORPUSCULAR VOLUME 80 FL (80-99); MEAN PLATELET VOLUME 9.9 FL (7.4-10.4); MONOCYTES # (AUTO) 0.1 X 10^3 (0.0-1.0); MONOCYTES % (AUTO) 1 % (0-12); NEUTROPHILS # (AUTO) 6.8 X 10^3 (1.8-7.8); NEUTROPHILS % (AUTO) 76 % (42-75); PLATELET COUNT 334 10^3/uL (130-400); RED CELL DISTRIBUTION WIDTH 13.6 % (10.0-14.5)
[2019-07-01] MEDS ORDERED: ASPIRIN 81 MG CHEW (CHILDREN'S ASA) PO STA (16:27)
[2019-07-01 16:33] LABS: INR 1.3 (0.8-1.4); PROTHROMBIN TIME PATIENT 16.5 SEC (12.2-14.7)
--- NOTE | 2019-07-01 16:40 | NUR ---
ELISEO [phone] CONTACT NUMBER
[2019-07-01 16:44] LABS: ALBUMIN 3.9 GM/DL (3.2-4.5); BILIRUBIN,TOTAL 0.4 MG/DL (0.1-1.0); CREATININE SERUM 1.74 MG/DL (0.60-1.30); MAGNESIUM 1.9 MG/DL (1.6-2.4); POTASSIUM 3.5 MMOL/L (3.6-5.0); TOTAL PROTEIN 6.3 GM/DL (6.4-8.2)
--- NOTE | 2019-07-01 16:55 | Diagnostic Imaging Report ---
INDICATION: Chest pain and syncope. COMPARISON: 11/25/2018. FINDINGS: A single frontal view of the chest demonstrates normal heart size and pulmonary vascularity. The lungs are well aerated and clear. No large pleural effusion or pneumothorax is seen. The visualized osseous structures show no acute abnormalities. IMPRESSION: No acute cardiopulmonary process. Dictated by: Dictated on workstation # [id number]
[2019-07-01] MEDS ORDERED: IBUPROFEN 600 MG (MOTRIN) TAB PO ONE (17:15)
[2019-07-01 18:00] VITALS: BP 94/56
== END 2019-07-01 18:00 | disposition home or self-care (01) ==
LOC: EDUNIT# 15:54 → ER 16:04
DX: R55 Syncope and collapse (principal); Z88.5 Allergy status to narcotic agent; Z79.899 Other long term (current) drug therapy; Z87.891 Personal history of nicotine dependence; J44.9 Chronic obstructive pulmonary disease, unspecified; G47.30 Sleep apnea, unspecified; Z95.2 Presence of prosthetic heart valve; E78.00 Pure hypercholesterolemia, unspecified; I10 Essential (primary) hypertension; I38 Endocarditis, valve unspecified; N40.0 Benign prostatic hyperplasia without lower urinary tract symptoms; K21.9 Gastro-esophageal reflux disease without esophagitis; E11.9 Type 2 diabetes mellitus without complications; Z85.46 Personal history of malignant neoplasm of prostate; Z92.3 Personal history of irradiation; F41.9 Anxiety disorder, unspecified; F32.9 Major depressive disorder, single episode, unspecified; M10.9 Gout, unspecified; M54.9 Dorsalgia, unspecified
CPT/HCPCS: 36415; 71045; 80053; 82150; 83690; 83735; 83874; 84484; 85025; 85610; 85730; 93005; 93041

== ENCOUNTER 2019-10-10 06:12 | Emergency (ER) | payer MEDICARE, MEDICAID ==
[~2019-10-10] VITALS: Ht 175 cm; Wt 92.0 kg
[~2019-10-10 06:12] MED LIST changes: -SENN-141 PO; +SENN-234 PO; -TIZA2TAB4; +TIZA2TAB7
[2019-10-10] MEDS ORDERED: HYDROcodone/APAP 5 MG/325 MG (LORTAB) TAB PO ONE (07:00)
--- NOTE | 2019-10-10 07:07 | ED Lower Extremity ---
General Chief Complaint: Lower Extremity Stated Complaint: BOTH LEGS HURT Nursing Triage Note: PT PRESENTS WITH MELQUIADES LEG PAIN IN [place]. SEEN IN [facility] [facility] [employer] AND GIVEN TORADOL AND MUSCLE RELAXERS WITH NO RELIEF. STATES COULD HAVE BEEN FROM [employer]QUIPMENT YESTERDAY. DENIES RESP SX, NO SICK CONTACTS, NO RECENT TRAVEL. Nursing Sepsis Screen: No Definite Risk Source: patient Exam Limitations: no limitations History of Present Illness Date Seen by Provider: Oct 10, 2019 Time Seen by Provider: 06:46 Initial Comments Patient presents to ER by private conveyance from home with chief complaint of having pain in his bilateral shoulders and bilateral legs. He associates this pain with getting worse over the past week and a half after he bought a new truck that he has to use a hand grab and using the foot steps to get up. He has a artificial left shoulder and both knees. For the past couple years she's been dependent on Vicodin 5 mg. He recently had to switch to a [facility] to after Dr. Contreras left. He admits that he did recently run out about 3 days ago and has not been able to get in with his new primary care provider to get them refilled. He went to the ER. Earlier in the night because he was having tremendous pain was given a muscle relaxant and a shot of Toradol which she said did nothing for his pain. He has muscle relaxants at home. He did have some nausea and vomiting when he first came in but he says that is related to wearing the mask and is interested mask off his nausea went away. He says he's had no fevers chills cough shortness of breath or other systemic symptoms. We asked if his pain seemed to be getting worse related to his having ran out of the Vicodin and he agreed that he thought that might be the chief problem. He does not take statins. No history of rhabdomyolysis. No difficulty urinating. Allergies and Home Medications Allergies Coded Allergies: morphine (Verified Allergy, Severe, HIVES, N/V,pt has rec. Lortab in the past w/o issue, 05/21/19) Home Medications Albuterol Sulfate 18 Gm Hfa.aer.ad, 2 PUFF INH Q6H PRN for SHORTNESS OF BREATH, (Reported) Allopurinol 300 Mg Tablet, 150 MG PO DAILY, (Reported) TAKES 1/2 (300MG) TABLET Amitriptyline HCl 100 Mg Tablet, 100 MG PO HS, (Reported) Atorvastatin Calcium 40 Mg Tablet, 40 MG PO HS, (Reported) Baclofen 10 Mg Tablet, 10 MG PO TID PRN for MUSCLE SPASMS, (Reported) Budesonide/Formoterol Fumarate 10.2 Gm Hfa.aer.ad, 2 PUFF IH BID, (Reported) Buspirone HCl 10 Mg Tablet, 5 MG PO DAILY, (Reported) TAKES 1/2 (10MG) TABLET Buspirone HCl 10 Mg Tablet, 10 MG PO HS, (Reported) Cetirizine HCl 10 Mg Tablet, 10 MG PO DAILY, (Reported) Cyclobenzaprine HCl 10 Mg Tablet, 10 MG PO TID PRN for MUSCLE SPASMS, (Reported) ALTERNATES WITH BACLOFEN Dexlansoprazole 60 Mg Esteban., 60 MG PO DAILY, (Reported) Fluticasone Propionate 9.9 Ml [place].susp, 1 SPRAY NS BID PRN for ALLERGIES, (Reported) Hydrocodone Bit/Acetaminophen 1 Each Tablet, 1 TAB PO Q6H PRN for PAIN-MODERATE Prescribed by: VAIBHAV WILKINSON on 11/26/18 1047 Lisinopril 40 Mg Tablet, 40 MG PO DAILY, (Reported) Metoprolol Succinate 100 Mg Tab.er.24h, 100 MG PO DAILY, (Reported) LAST FILLED #30 09-08-18 Montelukast Sodium 10 Mg Tablet, 10 MG PO HS, (Reported) Multivit-Min/FA/Lycopen/Lutein 1 Each Tablet, 1 TAB PO DAILY, (Reported) Ondansetron 8 Mg Tab.rapdis, 8 MG PO Q6H PRN for NAUSEA/VOMITING-1ST LINE, (Reported) Sennosides 8.6 Mg Tablet, 1-2 TAB PO DAILY PRN for CONSTIPATION-5TH LINE, (Reported) Tamsulosin HCl 0.4 Mg Cap, 0.4 MG PO DAILY, (Reported) Patient Home Medication List Home Medication List Reviewed: Yes Review of Systems Constitutional: No chills, No fever EENTM: No ear discharge, No ear pain Respiratory: No cough, No short of breath Cardiovascular: No chest pain, No edema Gastrointestinal: No abdominal pain, No nausea Genitourinary: No discharge, No dysuria Musculoskeletal: No back pain, No joint pain Skin: No pruritus, No rash All Other Systems Reviewed Negative Unless Noted: Yes Past Hixemdm-Ozrlbv-Uvlddn Hx Patient Social History Alcohol Use: Denies Use Recreational Drug Use: No Smoking Status: Former Smoker Type Used: Cigarettes Former Smoker, Quit: Nov 06, 1990 2nd Hand Smoke Exposure: No Recent Foreign Travel: No Contact w/Someone Who Travel: No Recent Infectious Disease Expo: No Recent Hopitalizations: No Physical Abuse: No Sexual Abuse: No Mistreated: No Fear: No Immunizations Up To Date Tetanus Booster (TDap): Unknown PED Vaccines UTD: No Date of Pneumonia Vaccine: Nov 25, 2016 Date of Influenza Vaccine: Jan 12, 2019 Seasonal Allergies Seasonal Allergies: No Past Medical History Surgeries: Yes (CARPAL TUNNEL BILAT, BACK X3, R SHOULDER REPLACEMEN, L HIP REPLACE, L TKR) Abdominal, Joint Replacement, Orthopedic, Transurethral Resection Respiratory: Yes (COPD, sleep apnea) Asthma, Sleep Apnea, COPD Currently Using CPAP: Yes Currently Using BIPAP: No Cardiac: Yes (Mitral Valve Prolapse) High Cholesterol, Hypertension, Valvular Heart Disease Neurological: No Reproductive Disorders: No Sexually Transmitted Disease: No HIV/AIDS: No Genitourinary: Yes (Prostate cancer, BPH) Benign Prostatic Hyperpl, Prostate Problems Gastrointestinal: Yes (Bowel obstruction x2) Abdominal Hernia, Gastroesophageal Reflux, Obstructive Bowel, Hiatal Hernia, Ul cer Musculoskeletal: Yes (CHRONIC BILATERAL HIP PAIN, BILATERAL KNEE PAIN, NECK AND BACK PAIN ) Degenerate Disk Disease, Arthritis, Back Injury, Chronic Back Pain, Gout Endocrine: No Diabetes, Non-Insulin dep HEENT: No Loss of Vision: Bilateral Hearing Impairment: Denies Cancer: Yes Prostate Did You Recieve Any Treatments: Yes What Type of Treatment Did You: Radiation, Surgical Intervention Psychosocial: Yes Anxiety, Depression Integumentary: No Blood Disorders: No Adverse Reaction/Blood Tranf: No (HAS HAD BLOOD WITH NO REACTION) Family Medical History Cardiovascular disease 19 MOTHER Myocardial infarction 19 MOTHER, Onset:62 G8 SISTER No Pertinent Family Hx, Heart Disease, Other Conditions/Hx Physical Exam Vital Signs Vital Signs - First Documented 10/10/19 06:41 Temp 36.9 Pulse 88 Resp 18 B/P (MAP) 167/94 (118) Pulse Ox 98 O2 Delivery Room Air Capillary Refill : Less Than 3 Seconds Height, Weight, BMI Height: 5'9.00" Weight: 172lbs. 5.0oz. 78.095237ve; 30.00 BMI Method:Stated General Appearance: WD/WN, no apparent distress HEENT: PERRL/EOMI, normal ENT inspection Neck: full range of motion, normal inspection Cardiovascular: normal peripheral pulses, regular rate, rhythm Respiratory: lungs clear, normal breath sounds, no respiratory distress, no accessory muscle use Gastrointestinal: non tender, soft Hips: bilateral hip non-tender, bilateral hip normal inspection, bilateral hip normal range of motion, bilateral hip no evidence of injury Knees: bilateral knee non-tender, bilateral knee normal inspection, bilateral knee normal range of motion, bilateral knee no evidence of injury Neurologic/Tendon: normal motor functions, normal tendon functions Neurologic/Psychiatric: no motor/sensory deficits, alert, normal mood/affect, oriented x 3 Skin: normal color, warm/dry Progress/Results/Core Measures Results/Orders My Orders Orders - KVNG EUBANKS Hydrocodone/Apap 5/325 Tablet (Lortab 5 (10/10/19 07:00) Medications Given in ED Current Medications Medications Dose Ordered Sig/Allison Route Start Time Stop Time Status Last Admin Dose Admin Acetaminophen/ Hydrocodone Bitart 2 tab ONCE ONCE PO 10/10/19 07:00 10/10/19 07:01 DC 10/10/19 07:15 2 TAB Vital Signs/I&O 10/10/19 06:41 Temp 36.9 Pulse 88 Resp 18 B/P (MAP) 167/94 (118) Pulse Ox 98 O2 Delivery Room Air Blood Pressure Mean: 118 Progress Progress Note : Time: 07:07 Progress Note I suspect this is withdrawal from chronic opiate dependency. We Explained to him that we would not refill his pain medications however we will provide him with a single dose to help treat his narcotic dependency and chronic pain. Patient is okay with this plan. We did discuss doing further workup including urine and blood looking for other sources of trouble such as rhabdomyolysis or other systemic inflammatory disorders and he declined this workup at this time. We emphasized the importance of following up with his primary care and making sure he has plenty of his pain medicine especially before holiday weekends. His vital signs are aseptic and his exam is unremarkable. His joints examined are unimpressive. Departure Impression Primary Impression: Leg pain, bilateral Disposition: 01 HOME, SELF-CARE Condition: Stable Departure-Patient Inst. Decision time for Depature: 07:11 Referrals: CATHIE THORPE (PCP/Family) Primary Care Physician Patient Instructions: Active Range of Motion Exercises, Back and Hips Add. Discharge Instructions: Saturday morning please make a appointment with your primary care provider to manage her pain. Please return to the nearest ER promptly if you experience intractable pain, nausea and vomiting, fever or other worrisome symptoms. All discharge instructions reviewed with patient and/or family. Voiced understanding. KVNG EUBANKS Oct 10, 2019 07:07
[2019-10-10 07:46] VITALS: BP 145/82
--- OUTSIDE RECORDS SUMMARY | 2019-10-10 08:04 | XMS REPORT | Clinical Summary ---
Author Author [facility] Organization [facility] Address Unknown Phone Unavailable Care Team Providers Care Pesticide Applicator Name Role Phone James Contreras MD PCP Source Comments Some departments are not documenting in the electronic medical record. If you d o not see the information that you expected, contact Release of Information in [facility] [employer] Information Management department at [phone] for further assistan ce in locating additional records.[facility] Allergies Comments Active Allergy Reactions Severity [...] 0 tablet mouth at bedtime daily. Active dzkvgzzsorm-krchrfctj-[id number] Inhale 1 puff 0 anter 100-62.5-25 mcg [...] Health Maintenance Due Date Last Done Comments MEDICARE ANNUAL WELLNESS 1945 VISIT DTAP/TDAP VACCINES (1 - 1963 Tdap) HEPATITIS C SCREENING 1963 PHYSICAL (COMPREHENSIVE) 1963 EXAM COLORECTAL CANCER 1995 SCREENING SHINGLES RECOMBINANT 1995 VACCINE (1 of 2) ABDOMINAL AORTIC ANEURYSM 2010 SCREENING INFLUENZA VACCINE 01/07/2020 PNEUMONIA (PPSV23) Completed 12/03/2018 VACCINE Goals Goal Patient Associated Recent Progress Patient-Stat Aut hor Goal Type Problems ed? 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
--- OUTSIDE RECORDS SUMMARY | 2019-10-10 08:11 | XMS REPORT | Continuity of Care Document ---
Author Organization Unknown Address Unknown Phone Unavailable Allergies Active Description Code Type Severity Reaction Onset Reported/Identified Relationship to Patient Clinical Status Yes FENTANYL FENTANYL MODERATE Yes MORPHINE MORPHINE MODERATE Yes FENTANYL MODERATE DERMATOLOGICAL - TANESHA Yes FENTANYL MODERATE MODERATE Yes MORPHINE MODERATE DERMATOLOGICAL - TANESHA Yes MORPHINE MODERATE MODERATE Yes morphine [id number] Drug Allergy Severe N/A 07/19/2012 Yes fentanyl [id number] Drug Allergy Unknown N/A 08/19/2013 Yes morphine [id number] Drug Allergy Severe HIVES, N/V 12/07/2016 Yes fentanyl [id number] Drug Allergy Mild RESTLESS 12/07/2016 Yes morphine [id number] Drug Allergy Severe HIVES, N/V,pt h 05/22/2019 [...] 100 MCG/2CC VIAL MCG 06/10/2019 06/10/2019 [id number]&[id number] KETOROLAC VIAL INJ 60 MG/2CC (TORADOL VIAL ) MG 10/04/2019 10/09/2019 Q6H&0600,1200,1800,2359 KETOROLAC VIAL INJ 30 MG/CC (TORADOL VIAL) MG 10/10/2019 10/10/2019 [id number]&0146 ORPHENADRINE INJ 60 MG/2CC (NORFLEX) MG 10/10/2019 10/10/2019 ONCE&0146 Problems Date Dx Coded Attending Type Code Diagnosis Diagnosed By SHEA PAULSON DO Ot M25.512 PAIN IN LEFT SHOULDER SHEA PAULSON DO Ot Z98.890 OTHER SPECIFIED POSTPROCEDURAL STATES 03/07/1454 SHEA PAULSON DO Ot M25.512 PAIN IN LEFT SHOULDER 07/21/2012 Ot 272.4 HYPE RLIPIDEMIA NEC/NOS 07/21/2012 Ot 401.9 HYPE RTENSION NOS 07/21/2012 Ot 414.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 OF [place] CORON 07/21/2012 Ot 424.1 AORT IC VALVE [...] QUIROZ MD Ot 414.01 CORONARY ATHEROSCLEROSIS OF [place] CORON 10/23/2012 THOMAS QUIROZ MD Ot 493.20 [...] MD Ot V40.9 MENTAL/BEHAVIOR PROB NOS 10/23/2012 BRUEGGEMANN MD, THOMAS T Ot V58.66 LONG-TERM (CURRENT) USE OF ASPIRIN [...] 682.4 CELLULITIS OF HAND 03/10/2014 RADHA LAU [facility] Ot 424.1 03/10/2014 KAUSHIK SHEN MD Ot [...] FINDINGS 03/11/2014 TITO COLE DO Ot V58.69 OTH MED,LT,CURRENT USE 04/06/2014 JOSEPH LAU MD Ot 496 04/07/2014 JOSEPH LAU MD Ot 496 04/07/2014 SID IRVIN, JOSEPH Merchant Ot 786.5 0 04/07/2014 JOSEPH LAU MD [...] Ot 607.1 ARIANNE NOPOSTHITIS 06/15/2014 Ot V58.69 OT MED,LT,CURRENT USE 08/10/2014 SAV CHAVES MD Ot 185 08/13/2014 WILLIS NAZARIO DO Ot 272. 4 08/13/2014 WILLIS NAZARIO DO Ot 401. 9 08/13/2014 WILLIS NAZARIO DO Ot 414. 00 08/13/2014 WILLIS NAZARIO DO Ot 496 08/27/2014 WILLIS NAZARIO DO Ot 272. 4 08/27/2014 WILLIS NAZARIO DO Ot 401. 9 08/27/2014 WILLIS NAZARIO DO Ot 414. 00 08/27/2014 WILLIS NAZARIO DO Ot 496 09/04/2014 GARY GIBBS APRN Ot 786.2 09/04/2014 DIPESH JEFFERY MD Ot 185 09/17/2014 DIPESH JEFFERY MD Ot 185 09/28/2014 SAV CHAVES MD Ot 185 10/01/2014 GARY GIBBS APRN Ot 786.2 11/02/2014 DIPESH JEFFERY MD Ot 185 MALIGN NEOPL PROSTATE 11/02/2014 DIPESH JEFFERY MD Ot V58.0 ENCOUNTER FOR RADIOTHERAPY 11/05/2014 DIPESH JEFFERY MD Ot 185 11/08/2014 DIPESH JEFFERY MD Ot 185 11/09/2014 DIPESH JEFFERY MD Ot 185 11/16/2014 RADHA LAU Ot 424.1 11/16/2014 KAUSHIK SHEN MD Ot 211.1 11/16/2014 HERMELINDA IRVIN, KAUSHIK Ot 530.11 11/16/2014 HERMELINDA IRVIN, KAUSHIK Ot 535.50 11/16/2014 HERMELINDA IRVIN, KAUSHIK Ot 553.3 11/16/2014 HERMELINDA IRVIN, KAUSHIK Ot V72.84 11/16/2014 SID IRVIN, JOSEPH Merchant Ot 724.5 11/16/2014 SID IRVIN, JOSEPH Merchant Ot 787.0 2 11/16/2014 SID IRVIN, JOSEPH Merchant Ot 789.0 0 11/16/2014 SID IRVIN, JOSEPH Merchant Ot 496 11/16/2014 SID IRVIN, JOSEPH Merchant Ot 496 11/16/2014 SID IRVIN, JOSEPH Merchant Ot 786.5 0 11/16/2014 SID IRVIN, JOSEPH Merchant Ot 796.4 11/16/2014 WILLIS NAZARIO DO Ot 272. 4 11/16/2014 WILLIS NAZARIO DO Ot 401. 9 11/16/2014 WILLIS NAZARIO DO Ot 414. 00 11/16/2014 WILLIS NAZARIO DO Ot 496 11/16/2014 [...] E Ot 185 MALIGN NEOPL PROSTATE 01/05/2015 DIPESH JEFEFRY MD Ot V58.0 ENCOUNTER FOR RADIOTHERAPY 03/16/2015 HERMELINDA IRVIN, KAUSHIK Ot K21.0 GASTRO-ESOPHAGEAL REFLUX DISEASE WITH ES 03/16/2015 HERMELINDA IRVIN, KAUSHIK Ot K25.9 GASTRIC ULCER, UNSP ACUTE OR CHRONIC, 03/16/2015 HERMELINDA IRVIN, KAUSHIK Ot K29.70 GASTRITIS, UNSPECIFIED, WITHOUT BLEEDING 03/16/2015 HERMELINDA IRVIN, KAUSHIK Ot K31.7 POLYP OF STOMACH AND DUODENUM 03/16/2015 HERMELINDA IRVIN, KAUSHIK Ot K44.9 DIAPHRAGMATIC HERNIA WITHOUT OBSTRUCTION 03/21/2015 HERMELINDA IRVIN, JOSHAAKI Ot K76.0 03/21/2015 HERMELINDA IRVIN, MILADISKI Ot R10.11 04/07/2015 HERMELINDA IRVIN, MILADISKI Ot K76.0 04/07/2015 HERMELINDA IRVIN, JOSHAAKI Ot R10.11 04/12/2015 HERMELINDA IRVIN, JOSHAAKI Ot K76.0 04/12/2015 HERMELINDA IRVIN, JOSHAAKI Ot R10.11 04/19/2015 HERMELINDA IRVIN, JOSHAAKI Ot R10.11 04/22/2015 HERMELINDA IRVIN, JOSHAAKI Ot R10.11 04/25/2015 JOSE D IRVIN, DIPESH Wall Ot 185 04/25/2015 JOSE D IRVIN, DIPESH Wall Ot 185 04/28/2015 HERMELINDA IRVIN, KAUSHIK Ot K81.1 CHRONIC CHOLECYSTITIS 05/01/2015 BROOKS DIA CEMENT CRUSHER OPERATOR Ot G89.18 OTHER ACUTE POSTPROCEDURAL PAIN 05/01/2015 BROOKS DIA CEMENT CRUSHER OPERATOR Ot R11 .2 NAUSEA WITH VOMITING, UNSPECIFIED 05/01/2015 BROOKS DIA CEMENT CRUSHER OPERATOR Ot Z90.49 ACQUIRED ABSENCE OF OTHER SPECIFIED PART 05/24/2015 HERMELINDA IRVIN, KAUSHIK Ot K82.8 05/24/2015 KAUSHIK SHEN MD Ot Z01.81 2 05/24/2015 HERMELINDA IRVIN, KAUSHIK Ot Z11.2 06/01/2015 KAUSHIK SHEN MD Ot K82.8 06/01/2015 HERMELINDA IRVIN, KAUSHIK Ot Z01.81 2 06/01/2015 HERMELINDA IRVIN, KAUSHIK Ot Z11.2 06/11/2015 SID IRVIN, ALEX A Ot L03.012 CELLULITIS OF LEFT FINGER 08/22/2015 NEVIN IRVIN, MALOU Merchant Ot G89.29 OTHER CHRONIC PAIN 08/22/2015 NEVIN IRVIN, MALOU Merchant Ot M54.5 LOW BACK PAIN 08/23/2015 MALOU ROONEY MD Ot G89.29 OTHER CHRONIC PAIN 08/23/2015 NEVIN IRVIN, MALOU Merchant Ot M54.5 LOW BACK PAIN 10/10/2015 RICHIE IRVIN, THOMAS Fairchild Ot M16.11 UNILATERAL PRIMARY OSTEOARTHRITIS, RIGHT 10/13/2015 RICHIE IRVIN, THOMAS Fairchild Ot M16.11 UNILATERAL PRIMARY OSTEOARTHRITIS, RIGHT 11/08/2015 RICHIE IRVIN, THOMAS Fairchild Ot F41.9 ANXIETY DISORDER, UNSPECIFIED 11/08/2015 RICHIE IRVIN, THOMAS T Ot R07.89 OTHER CHEST PAIN 11/08/2015 RICHIE IRVIN, THOMAS Fairchild Ot R07.9 CHEST PAIN, UNSPECIFIED 11/09/2015 RICHIE IRVIN, THOMAS T Ot F41.9 ANXIETY DISORDER, UNSPECIFIED 11/09/2015 [...] IMMUNIZATION 02/22/2016 ELPIDIO BELLE Ot Z79.899 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 02/22/2016 ELPIDIO BELLE Ot Z87.891 PERSONAL HISTORY OF NICOTINE DEPENDENCE 02/22/2016 ELPIDIO BELLE Ot Z96.642 PRESENCE OF LEFT ARTIFICIAL HIP JOINT 02/23/2016 RADHA LAU Ot 424.1 AORTIC VALVE DISORDER 02/23/2016 HERMELINDA IRVIN, KAUSHIK Ot 211.1 BENIGN NEOPLASM STOMACH 02/23/2016 HERMELINDA IRVIN, KAUSHIK Ot 530.11 REFLUX ESOPHAGITIS 02/23/2016 HERMELINDA IRVIN, KAUSHIK Ot 535.50 UNSP GASTRITIS GASTRODUODENITIS W/O ME 02/23/2016 HERMELINDA IRVIN, KAUSHIK Ot 553.3 DIAPHRAGMATIC HERNIA 02/23/2016 HERMELINDA IRVIN, [...] Ot V74.8 SCRE EN-BACTERIAL DIS NEC 02/23/2016 ANDIE IRVIN, SAV Valencia Ot 185 MALIGN NEOPL PROSTATE 02/23/2016 GARY GIBBS CEMENT CRUSHER OPERATOR Ot 786.2 COUGH 02/23/2016 JOSE D IRVIN, DIPESH E Ot 185 02/23/2016 KAUSHIK SHEN MD Ot K76.0 FATTY (CHANGE OF) LIVER, NOT ELSEWHERE C 02/23/2016 KAUSHIK SHEN MD Ot R10.11 RIGHT UPPER QUADRANT PAIN 02/23/2016 KAUSHIK SHEN MD Ot K27.9 PEPTIC ULC, SITE UNSP, UNSP AC OR CHR 02/23/2016 KAUSHIK SHEN MD Ot Z01.81 8 ENCOUNTER FOR OTHER PREPROCEDURAL EXAMIN 02/23/2016 KAUSHIK SHEN MD Ot R10.11 RIGHT UPPER QUADRANT PAIN 02/23/2016 KAUSHIK SHEN MD Ot K82.8 OTHER SPECIFIED DISEASES OF [place]ALL[place] 02/23/2016 KAUSHIK SHEN MD Ot Z01.81 2 ENCOUNTER [...] IMMUNIZATION 03/07/2016 ELPIDIO BELLE Ot Z79.899 OTHER SENIOR CARE (CURRENT) DRUG THERAPY 03/07/2016 ELPIDIO BELLE Ot Z87.891 PERSONAL HISTORY OF NICOTINE DEPENDENCE 03/07/2016 ELPIDIO BELLE Ot Z96.642 PRESENCE OF LEFT ARTIFICIAL HIP JOINT 06/04/2016 LISSET GRANADO L 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 Ot E78.4 OTHER HYPERLIPIDEMIA 06/04/2016 VANNESA LISSET L 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 Ot I 10 ESSENTIAL (PRIMARY) HYPERTENSION 06/04/2016 VANNESA LISSET L 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 Ot I25.10 ATHSCL HEART DISEASE OF [place] CORONARY 06/04/2016 JUNEMA LISSET L 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 Ot I34.0 NONRHEUMATIC MITRAL (VALVE) INSUFFICIENC 06/04/2016 BAIMA, LISSET L 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 Ot I35.1 NONRHEUMATIC AORTIC (VALVE) INSUFFICIENC 06/04/2016 BAIMA LISSET L 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 Ot I65.23 OCCLUSION AND STENOSIS OF [place] 06/07/2016 BAIMA LISSET L 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 Ot E78.4 OTHER HYPERLIPIDEMIA 06/07/2016 BAIMAGUE LISSET L 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 Ot I 10 ESSENTIAL (PRIMARY) HYPERTENSION 06/07/2016 VANNESA LISSET L 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 Ot I25.10 ATHSCL HEART DISEASE OF [place] CORONARY 06/07/2016 BAIMA LISSET L 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 Ot I34.0 NONRHEUMATIC MITRAL (VALVE) INSUFFICIENC 06/07/2016 BAIMA, LISSET L 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 Ot I35.1 NONRHEUMATIC AORTIC (VALVE) INSUFFICIENC 06/07/2016 BAIMA LISSET L 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 Ot I65.23 OCCLUSION AND STENOSIS OF [place] 09/08/2016 Irasema Kirby W 401.0 MALIGNANT ESSENTIAL HYPERTENSION 09/08/2016 Roberth Kirbyya W 530.81 ESOPHAGEAL REFLUX 09/08/2016 Roberth Kirbyya A 786.5 CHEST PAIN 09/08/2016 Irasema Kirby W I10 ESSENTIAL (PRIMARY) HYPERTENSION 09/08/2016 LoadithyaIrasema Lizzeth K21.9 GASTRO- ESOPHAGEAL REFLUX DISEASE WITHOUT ESOPHAGITIS 09/08/2016 J CarlossujeyRoberthya A R07.89 OTHER CHEST PAIN 11/01/2016 RADHA LAU 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 Ot 424.1 AORTIC VALVE DISORDER 11/01/2016 KAUSHIK [...] 789.0 0 ABDOMINAL PAIN, UNSPECIFIED SITE 11/01/2016 SID IRVIN, JOSEPH Merchant Ot 496 CHR AIRWAY OBSTRUCT NEC 11/01/2016 [...] 185 MALIGN NEOPL PROSTATE 11/01/2016 GARY GIBBS R CEMENT CRUSHER OPERATOR Ot 786.2 COUGH 11/01/2016 JOSE D IRVIN, DIPESH E Ot 185 11/01/2016 KAUSHIK SHEN MD Ot K76.0 FATTY (CHANGE OF) LIVER, NOT ELSEWHERE C 11/01/2016 KAUSHIK SHEN MD, Ot R10.11 RIGHT UPPER QUADRANT PAIN 11/01/2016 KAUSHIK SHEN MD Ot K27.9 PEPTIC ULC, SITE UNSP, UNSP AC OR CHR 11/01/2016 KAUSHIK SHEN MD, Ot Z01.81 8 ENCOUNTER FOR OTHER PREPROCEDURAL EXAMIN 11/01/2016 KAUSHIK SHEN MD, Ot R10.11 RIGHT UPPER QUADRANT PAIN 11/01/2016 KAUSHIK SHEN MD Ot K82.8 OTHER SPECIFIED DISEASES OF [place]ALL[place] 11/01/2016 KAUSHIK SHEN MD, Ot Z01.81 2 ENCOUNTER FOR PREPROCEDURAL LABORATORY E 11/01/2016 KAUSHIK SHEN MD Ot Z11.2 ENCOUNTER FOR SCREENING FOR OTHER BACTER 11/01/2016 LISSET GRANADO 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 Ot E78.4 OTHER HYPERLIPIDEMIA 11/01/2016 LISSET GRANADO 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 Ot I 10 ESSENTIAL (PRIMARY) HYPERTENSION 11/01/2016 LISSET GRANADO 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 Ot I25.10 ATHSCL HEART DISEASE OF [place] CORONARY 11/01/2016 LISSET GRANADO 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 Ot I34.0 NONRHEUMATIC MITRAL (VALVE) INSUFFICIENC 11/01/2016 LISSET GRANADO 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 Ot I35.1 NONRHEUMATIC AORTIC (VALVE) INSUFFICIENC 11/01/2016 LISSET GRANADO 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 Ot I65.23 OCCLUSION AND STENOSIS OF [place] 11/01/2016 HERIBERTOBert BARON SLOANE K Ot E11.9 TYPE 2 DIABETES MELLITUS WITHOUT COMPLIC 11/01/2016 HERIBERTOBert BARON SLOANE K Ot E78.00 PURE HYPERCHOLESTEROLEMIA, UNSPECIFIED 11/01/2016 ALIA LOU[place] DOA K Ot G89.29 OTHER CHRONIC PAIN 11/01/2016 HERIBERTO BARON SLOANE K Ot I10 ESSENTIAL (PRIMARY) HYPERTENSION 11/01/2016 ALIA [place] DOA K Ot J44.9 CHRONIC OBSTRUCTIVE PULMONARY DISEASE, U 11/01/2016 ALIA [place] DOA K Ot K21.9 GASTRO-ESOPHAGEAL REFLUX DISEASE WITHOUT 11/01/2016 HERIBERTO SLOANE K Ot M19.90 UNSPECIFIED OSTEOARTHRITIS, UNSPECIFIED 11/01/2016 HERIBERTO SLOANE Ot M54.5 LOW BACK PAIN 11/01/2016 HERIBERTO SLOANE K Ot Z85.46 PERSONAL HISTORY OF MALIGNANT NEOPLASM O 11/01/2016 HERIBERTO SLAONE Cyndee Ot Z87.19 PERSONAL HISTORY OF OTHER DISEASES OF TH 11/01/2016 HERIBERTO SLOANE BARON Ot Z87.442 PERSONAL HISTORY OF URINARY CALCULI 11/01/2016 HERIBERTO BARON SLOANE K Ot Z87.891 PERSONAL HISTORY OF NICOTINE DEPENDENCE 11/01/2016 HERIBERTO SLOANE BARON Ot 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 11/01/2016 SLOANE LOUIS DO Ot Z96.642 PRESENCE OF LEFT ARTIFICIAL HIP JOINT 11/08/2016 SLOANE LOUIS DO Ot E11.9 TYPE 2 DIABETES MELLITUS WITHOUT COMPLIC 11/08/2016 SLOANE [place]OU[place] DO Ot E78.00 PURE HYPERCHOLESTEROLEMIA, UNSPECIFIED 11/08/2016 HERIBERTO SLOANE BARON Ot G89.29 OTHER CHRONIC PAIN 11/08/2016 SLOANE [place] DO Ot I10 ESSENTIAL (PRIMARY) HYPERTENSION 11/08/2016 SLOANE [place] DO Ot J44.9 CHRONIC OBSTRUCTIVE PULMONARY DISEASE, U 11/08/2016 SLOANE [place] DO Ot K21.9 GASTRO-ESOPHAGEAL REFLUX DISEASE WITHOUT 11/08/2016 SLOANE LOU[place] DO Ot M19.90 UNSPECIFIED OSTEOARTHRITIS, UNSPECIFIED 11/08/2016 SLOANE L[place] DO Ot M54.5 LOW BACK PAIN 11/08/2016 HERIBERTO SLOANE BARON Ot Z85.46 PERSONAL HISTORY OF MALIGNANT NEOPLASM O 11/08/2016 SLOANE LOU[place] DO Ot Z87.19 PERSONAL HISTORY OF OTHER DISEASES OF 11/08/2016 SLOANE [place] DO Ot Z87.442 PERSONAL HISTORY OF URINARY CALCULI 11/08/2016 SLOANE L[place] DO Ot Z87.891 PERSONAL HISTORY OF NICOTINE DEPENDENCE 11/08/2016 SLOANE [place] DO Ot 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 11/08/2016 SLOANE [place] DO Ot Z96.642 PRESENCE OF LEFT ARTIFICIAL HIP JOINT 11/25/2016 DoraPipo fernandez A 300.01 PANIC DISORDER WITHOUT AGORAPHOBIA 11/25/2016 [...] INITIAL ENCOUNT 12/11/2016 ELPIDIO BELLE Ot Y92.[address] OF OCCURRENCE OF 12/11/2016 [...] CHRONIC OBSTRUCTIVE PULMONARY DISEASE, U 12/13/2016 ELPIDIO BLELE Ot M06.9 RHEUMATOID ARTHRITIS, UNSPECIFIED 12/13/2016 ELPIDIO BELLE Ot M25.551 PAIN IN RIGHT HIP 12/13/2016 ELPIDIO BELLE Ot M25.552 PAIN IN LEFT HIP 12/13/2016 ABEL PA, ELPIDIO L Ot M25.562 PAIN IN LEFT KNEE 12/13/2016 [...] Tripp 338.18 OTHER ACUTE POSTOPERATIVE PAIN 01/22/2017 Piop Tripp 564.00 CONSTIPATION, UNSPECIFIED 01/22/2017 Pipo Tripp [...] W I25.10 ATH EROSCLEROTIC HEART DISEASE OF [place] CORONARY ARTERY WITHOUT ANGINA PECTORIS 01/25/2017 W J30.1 MARIVEL RGIC RHINITIS DUE TO POLLEN 01/25/2017 W J44.9 LOCK TENDER CHIEF OPERATOR [place] OBSTRUCTIVE PULMONARY DISEASE, UNSPECIFIED 01/25/2017 W [...] FOR OTHER SPECIFIED AFTERCARE 01/25/2017 W Z96.642 [place] ESENCE OF LEFT ARTIFICIAL HIP JOINT 03/07/2017 A 338.18 OTH ER ACUTE POSTOPERATIVE PAIN 03/07/2017 W 719.45 GWEN N IN JOINT INVOLVING [place] AND THIGH 03/07/2017 A G89.18 OT ER ACUTE POSTPROCEDURAL PAIN 03/07/2017 W M25.551 [...] 564.00 CON STIPATION, UNSPECIFIED 10/16/2017 W 781.99 OT ER SYMPTOMS INVOLVING NERVOUS AND MUSCULOSKELETAL SYSTEMS 10/16/2017 W 783.9 OTHE R SYMPTOMS CONCERNING NUTRITION, METABOLISM, AND DEVELOPMENT 10/16/2017 W G12.29 OT ER MOTOR NEURON DISEASE 10/16/2017 W K59.09 OT ER CONSTIPATION 10/16/2017 W R29.818 OT HER SYMPTOMS AND SIGNS INVOLVING THE NERVOUS SYSTEM 10/16/2017 W R63.0 ANOREXIA 10/20/2017 ADALBERTO WINKLER Ot E11.9 TYPE 2 DIABETES MELLITUS WITHOUT COMPLIC 10/20/2017 ADALBERTO WINKLER Ot E78.00 PURE HYPERCHOLESTEROLEMIA, UNSPECIFIED 10/20/2017 ADALBERTO WINKLER Ot I10 ESSENTIAL (PRIMARY) HYPERTENSION 10/20/2017 ADALBERTO WINKLER Ot J44.9 CHRONIC OBSTRUCTIVE PULMONARY DISEASE, U 10/20/2017 BERNOT, ADALBERTO Ot K21.0 GASTRO-ESOPHAGEAL REFLUX DISEASE WITH ES 10/20/2017 BERNOT ADALBERTO Ot R10.32 LEFT LOWER QUADRANT PAIN 10/20/2017 PETERSON ADALBERTO Ot R11.2 NAUSEA WITH VOMITING, UNSPECIFIED 10/20/2017 BERNCANDE ADALBERTO Ot Z87.19 PERSONAL HISTORY OF OTHER DISEASES OF 10/20/2017 VALENCIA WINKLERIS Ot Z87.442 PERSONAL HISTORY OF URINARY CALCULI 10/20/2017 VALENCIA WINKLERIS Ot Z87.891 PERSONAL HISTORY OF NICOTINE DEPENDENCE 10/20/2017 PETERSON ADALBERTO Ot Z88.5 ALLERGY STATUS TO NARCOTIC AGENT STATUS 10/20/2017 PETERSON ADALBERTO Ot 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 10/20/2017 PETERSON ADALBERTO Ot Z96.642 PRESENCE OF LEFT ARTIFICIAL HIP JOINT 10/20/2017 PETERSON ADALBERTO Ot Z96.652 PRESENCE OF LEFT ARTIFICIAL KNEE JOINT 10/22/2017 VALENCIA WINKLERIS Ot E11.9 TYPE 2 DIABETES MELLITUS WITHOUT COMPLIC 10/22/2017 VALENCIA WINKLERIS Ot E78.00 PURE HYPERCHOLESTEROLEMIA, UNSPECIFIED 10/22/2017 PETERSON ADALBERTO Ot I10 ESSENTIAL (PRIMARY) HYPERTENSION 10/22/2017 VALENCIA WINKLERIS Ot J44.9 CHRONIC OBSTRUCTIVE PULMONARY DISEASE, U 10/22/2017 VALENCIA WINKLERIS Ot K21.0 GASTRO-ESOPHAGEAL REFLUX DISEASE WITH ES 10/22/2017 VALENCIA WINKLERIS Ot R10.32 LEFT LOWER QUADRANT PAIN 10/22/2017 VALENCIA WINKLERIS Ot R11.2 NAUSEA WITH VOMITING, UNSPECIFIED 10/22/2017 VALENCIA WINKLERIS Ot Z87.19 PERSONAL HISTORY OF OTHER DISEASES OF 10/22/2017 VALENCIA WINKLERIS Ot Z87.442 PERSONAL HISTORY OF URINARY CALCULI 10/22/2017 VALENCIA WINKLERIS Ot Z87.891 PERSONAL HISTORY OF NICOTINE DEPENDENCE 10/22/2017 VALENCIA WINKLERIS Ot Z88.5 ALLERGY STATUS TO NARCOTIC AGENT STATUS 10/22/2017 BERNCANDE ADALBERTO Ot 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 10/22/2017 PETERSON ADALBERTO Ot Z96.642 PRESENCE OF LEFT ARTIFICIAL HIP JOINT 10/22/2017 BERNOT ADALBERTO Ot Z96.652 PRESENCE OF LEFT ARTIFICIAL KNEE JOINT 10/24/2017 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 Ot E87.1 HYPO-OSMOLALITY AND HYPONATREMIA 10/24/2017 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 Ot J43.9 EMPHYSEMA, UNSPECIFIED 10/24/2017 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 Ot R63.4 ABNORMAL WEIGHT LOSS 10/25/2017 RADAH LAU 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 Ot 424.1 AORTIC VALVE DISORDER 10/25/2017 KAUSHIK SHEN MD Ot 211.1 BENIGN NEOPLASM STOMACH 10/25/2017 KAUSHIK SHEN MD Ot 530.11 REFLUX ESOPHAGITIS 10/25/2017 KAUSHIK SHEN [...] Valencia Ot 185 MALIGN NEOPL PROSTATE 10/25/2017 BERNIE, GARY R CEMENT CRUSHER OPERATOR Ot 786.2 COUGH 10/25/2017 JOSE D IRVIN, DIPESH E Ot 185 10/25/2017 KAUSHIK SHEN MD Ot [...] QUADRANT PAIN 10/25/2017 KAUSHIK SHEN MD, Ot K82.8 OTHER SPECIFIED DISEASES OF GALLBLAD[place] 10/25/2017 KAUSHIK SHEN MD, Ot Z01.81 2 ENCOUNTER FOR PREPROCEDURAL LABORATORY E 10/25/2017 KAUSHIK SHEN MD, Ot Z11.2 ENCOUNTER FOR SCREENING FOR OTHER BACTER 10/25/2017 LISSET GRANADOP Ot E78.4 OTHER HYPERLIPIDEMIA 10/25/2017 LISSET GRANADO 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 Ot I 10 ESSENTIAL (PRIMARY) HYPERTENSION 10/25/2017 LISSET GRANADO 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 Ot I25.10 ATHSCL HEART DISEASE OF [place] CORONARY 10/25/2017 LISSET GRANADO 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 Ot I34.0 NONRHEUMATIC MITRAL (VALVE) INSUFFICIENC 10/25/2017 LISSET GRANADO 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 Ot I35.1 NONRHEUMATIC AORTIC (VALVE) INSUFFICIENC 10/25/2017 LISSET GRANADOP Ot I65.23 OCCLUSION AND STENOSIS OF BILATERAL [...] E78.00 PURE HYPERCHOLESTEROLEMIA, UNSPECIFIED 10/25/2017 THOMAS QUIROZ MD, Ot G47.9 SLEEP DISORDER, UNSPECIFIED 10/25/2017 THOMAS QUIROZ MD, Ot I10 ESSENTIAL (PRIMARY) HYPERTENSION 10/25/2017 THOMAS QUIROZ MD, Ot J44.9 CHRONIC OBSTRUCTIVE PULMONARY DISEASE, U 10/25/2017 THOMAS QUIROZ MD, Ot K21.9 GASTRO-ESOPHAGEAL REFLUX DISEASE WITHOUT 10/25/2017 THOMAS QUIROZ MD Ot R05 COUGH 10/25/2017 THOMAS QUIROZ MD, Ot R07.81 PLEURODYNIA 10/25/2017 THOMAS QUIROZ MD, Ot R51 HEADACHE 10/25/2017 THOMAS QUIROZ MD, Ot Z79.52 HOOP FLARING MACHINE OPERATOR HELPER (CURRENT) USE OF SYSTEMIC STER 10/25/2017 THOMAS QUIROZ MD, Ot Z85.46 PERSONAL HISTORY OF MALIGNANT NEOPLASM O 10/25/2017 THOMAS QUIROZ MD Ot Z87.19 PERSONAL HISTORY OF OTHER DISEASES OF TH 10/25/2017 THOMAS QUIROZ MD, Ot Z87.442 PERSONAL HISTORY OF URINARY CALCULI 10/25/2017 THOMAS QUIROZ MD, Ot Z87.891 PERSONAL HISTORY OF NICOTINE DEPENDENCE 10/25/2017 THOMAS QUIROZ MD, Ot Z88.5 ALLERGY STATUS TO NARCOTIC AGENT STATUS 10/25/2017 THOMAS QUIROZ MD, Ot Z88.8 ALLERGY STATUS [...] GASTRO-ESOPHAGEAL REFLUX DISEASE WITHOUT 10/28/2017 THOMAS QUIROZ MD Ot R05 COUGH 10/28/2017 THOMAS QUIROZ MD Ot R07.81 PLEURODYNIA 10/28/2017 THOMAS QUIROZ MD, Ot R51 HEADACHE 10/28/2017 THOMAS QUIROZ MD, Ot Z79.52 HOOP FLARING MACHINE OPERATOR HELPER (CURRENT) USE OF SYSTEMIC STER 10/28/2017 THOMAS [...] R09.82 POS TNASAL DRIP 10/31/2017 THOMAS QUIROZ MD, Ot E11.9 TYPE 2 DIABETES MELLITUS WITHOUT COMPLIC 10/31/2017 THOMAS QUIROZ MD, Ot E78.00 PURE HYPERCHOLESTEROLEMIA, UNSPECIFIED 10/31/2017 THOMAS QUIROZ MD, Ot G47.9 SLEEP DISORDER, UNSPECIFIED 10/31/2017 THOMAS QUIROZ MD, Ot I10 ESSENTIAL (PRIMARY) HYPERTENSION 10/31/2017 THOMAS QUIROZ MD, Ot J44.9 CHRONIC OBSTRUCTIVE PULMONARY DISEASE, U 10/31/2017 THOMAS QUIROZ MD, Ot K21.9 GASTRO-ESOPHAGEAL REFLUX DISEASE WITHOUT 10/31/2017 THOMAS QUIROZ MD, Ot R05 COUGH 10/31/2017 THOMAS QUIROZ MD, Ot R07.81 PLEURODYNIA 10/31/2017 THOMAS QUIROZ MD, Ot R51 HEADACHE 10/31/2017 THOMAS QUIROZ MD, Ot Z79.52 SENIOR CARE (CURRENT) USE OF SYSTEMIC STER 10/31/2017 THOMAS [...] PRESENCE OF LEFT ARTIFICIAL SHOULDER ANYI 10/31/2017 BRUEGGEMANN MD, THOMAS T Ot Z96.642 PRESENCE OF LEFT ARTIFICIAL HIP JOINT 10/31/2017 THOMAS QUIROZ MD Ot Z96.652 PRESENCE OF LEFT ARTIFICIAL KNEE JOINT 11/17/2017 Ot E11.9 TYPE 2 DIABETES MELLITUS WITHOUT COMPLIC 11/17/2017 Ot E78.00 PUR E HYPERCHOLESTEROLEMIA, UNSPECIFIED 11/17/2017 Ot I10 ESSENT IAL (PRIMARY) HYPERTENSION 11/17/2017 Ot J44.9 LOCK TENDER CHIEF OPERATOR [place] OBSTRUCTIVE PULMONARY DISEASE, U 11/17/2017 Ot [...] OF COLONIC POLYPS 11/17/2017 Ot Z87.19 PER AKTERINA HISTORY OF OTHER DISEASES OF TH 11/17/2017 Ot Z87.442 PE RSONAL HISTORY OF URINARY CALCULI 11/17/2017 Ot Z87.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 11/17/2017 Ot Z88.5 MARIVEL RGY STATUS TO NARCOTIC AGENT STATUS 11/17/2017 Ot Z88.8 MARIVEL RGY STATUS TO OTH DRUG/MEDS/BIOL SUB 11/17/2017 Ot Z90.79 ACQ UIRED ABSENCE OF OTHER GENITAL ORGAN( 11/17/2017 Ot Z96.611 [place] ESENCE OF RIGHT ARTIFICIAL SHOULDER ELIEL 11/17/2017 Ot Z96.641 [place] ESENCE OF RIGHT ARTIFICIAL HIP JOINT 11/17/2017 Ot Z96.652 [place] ESENCE OF LEFT ARTIFICIAL KNEE JOINT 11/23/2017 Ot E11.9 TYPE 2 DIABETES MELLITUS WITHOUT COMPLIC 11/23/2017 Ot E78.00 PUR E HYPERCHOLESTEROLEMIA, UNSPECIFIED 11/23/2017 Ot I10 ESSENT IAL (PRIMARY) HYPERTENSION 11/23/2017 Ot J44.9 LOCK TENDER CHIEF OPERATOR [place] OBSTRUCTIVE PULMONARY DISEASE, U 11/23/2017 Ot [...] OF OTHER GENITAL ORGAN( 11/23/2017 Ot Z96.611 [place] ESENCE OF RIGHT ARTIFICIAL SHOULDER ELIEL 11/23/2017 Ot Z96.641 [place] ESENCE OF RIGHT ARTIFICIAL HIP JOINT 11/23/2017 Ot Z96.652 [place] ESENCE OF LEFT ARTIFICIAL KNEE JOINT 12/03/2017 W 783.0 ANOREXIA 12/03/2017 W R63.0 ANOREXIA 12/11/2017 WILLIS NAZARIO DO Ot Z01.818 ENCOUNTER FOR OTHER PREPROCEDURAL EXAMIN 12/12/2017 WILLIS NAZARIO DO Ot G47. 33 OBSTRUCTIVE SLEEP APNEA (ADULT) (PEDIATR 12/12/2017 WILLIS NAZARIO DO Ot J44. 9 CHRONIC OBSTRUCTIVE PULMONARY DISEASE, U 12/12/2017 ARAVIND WILLIS BARON Ot J45.909 UNSPECIFIED ASTHMA, UNCOMPLICATED 12/12/2017 ARAVIND WILLIS BARON Ot R05 COUGH 12/12/2017 ARAVIND WILLIS BARON Ot Z79. 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 OPERATOR HELPER (CURRENT) USE OF INHALED STERO 01/14/2018 WILLIS [...] MD Ot V72.84 EXAM PRE-OPERATIVE NOS 01/15/2018 JOSEPH LAU MD Ot 724.5 BACKACHE NOS 01/15/2018 JOSEPH LAU [...] 786.2 COUGH 01/15/2018 JOSE D IRVIN, DIPESH E Ot 185 01/15/2018 KAUSHIK SHEN MD Ot [...] FOR SCREENING FOR OTHER BACTER 01/15/2018 LISSET GRANADOP Ot E78.4 OTHER HYPERLIPIDEMIA 01/15/2018 LISSET GRANADO 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 Ot I 10 ESSENTIAL (PRIMARY) HYPERTENSION 01/15/2018 LISSET GRANADO 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 Ot I25.10 ATHSCL HEART DISEASE OF [place] CORONARY 01/15/2018 LISSET GRANADO 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 Ot I34.0 NONRHEUMATIC MITRAL (VALVE) INSUFFICIENC 01/15/2018 LISSET GRANADO 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 Ot I35.1 NONRHEUMATIC AORTIC (VALVE) INSUFFICIENC 01/15/2018 LISSET GRANADO 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 Ot I65.23 OCCLUSION AND STENOSIS OF [place]ILATERAL [place] 01/15/2018 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 Ot E87.1 HYPO-OSMOLALITY AND HYPONATREMIA 01/15/2018 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 Ot J43.9 EMPHYSEMA, UNSPECIFIED 01/15/2018 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 Ot R63.4 ABNORMAL WEIGHT LOSS 01/15/2018 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 Ot J44.9 CHRONIC OBSTRUCTIVE PULMONARY DISEASE, U 01/15/2018 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 Ot J30.9 ALLERGIC RHINITIS, UNSPECIFIED 01/15/2018 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 Ot J44.9 CHRONIC OBSTRUCTIVE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
== END 2019-10-10 07:46 | disposition home or self-care (01) ==
LOC: EDUNIT# 06:12 → ER 06:17
DX: M79.605 Pain in left leg (principal); Z88.5 Allergy status to narcotic agent; Z79.899 Other long term (current) drug therapy; Z87.891 Personal history of nicotine dependence; J44.9 Chronic obstructive pulmonary disease, unspecified; G47.30 Sleep apnea, unspecified; E78.00 Pure hypercholesterolemia, unspecified; I10 Essential (primary) hypertension; I38 Endocarditis, valve unspecified; N40.0 Benign prostatic hyperplasia without lower urinary tract symptoms; K21.9 Gastro-esophageal reflux disease without esophagitis; M19.90 Unspecified osteoarthritis, unspecified site; M54.9 Dorsalgia, unspecified; M10.9 Gout, unspecified; E11.9 Type 2 diabetes mellitus without complications; F41.9 Anxiety disorder, unspecified; F32.9 Major depressive disorder, single episode, unspecified; Z85.46 Personal history of malignant neoplasm of prostate; Z92.3 Personal history of irradiation; Z96.611 Presence of right artificial shoulder joint; Z96.651 Presence of right artificial knee joint; Z96.641 Presence of right artificial hip joint
CPT/HCPCS: 99283

== ENCOUNTER 2019-11-19 18:49 | Emergency (ER) | payer MEDICARE, MEDICAID ==
[~2019-11-19] VITALS: Ht 175 cm; Wt 93.8 kg
[2019-11-19 18:53] VITALS: BP 163/106
[2019-11-19] MEDS ORDERED: NS IV 1000 ML 1,000 ML ONE ×2 (19:06→19:07)
[2019-11-19] MEDS ORDERED: NS IV 1000 ML 1,000 ML IV SCH (19:08)
[2019-11-19] MEDS ORDERED: HYDR25TA4 (19:08)
[2019-11-19] MEDS ORDERED: FAMO40TA6 (19:08)
[2019-11-19] MEDS ORDERED: ONDA8TAB15 (19:08)
[2019-11-19] MEDS ORDERED: BUSP15TA60 (19:08)
[2019-11-19] MEDS ORDERED: AMLO10TA7 (19:08)
--- OUTSIDE RECORDS SUMMARY | 2019-11-19 19:13 | XMS REPORT | Clinical Summary ---
Author Author [facility] Organization [facility] Address Unknown Phone Unavailable Care Team Providers Care Training Engineer Name Role Phone James Contreras MD PCP Source Comments Some departments are not documenting in the electronic medical record. If you d o not see the information that you expected, contact Release of Information in [facility] [employer] Information Management department at [phone] for further assistan ce in locating additional records.[facility] Allergies Comments Active Allergy Reactions Severity [...] 0 tablet mouth at bedtime daily. Active zyuxcbsdeth-pywpgstxs-gwk Inhale 1 puff 0 anter 100-62.5-25 mcg [...] Assigned at Date Recorded Not on file Last Filed Vital Signs Reading Time Taken [...] ed? 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
[2019-11-19] MEDS ORDERED: NITROGLYCERIN 0.4 MG SL TABS BTL 25'S SL PRN (19:15)
[2019-11-19] MEDS ORDERED: ASPIRIN 81 MG CHEW (CHILDREN'S ASA) PO ONE (19:15)
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
[2019-11-19] MEDS ORDERED: ONDANSETRON 4 MG/2 ML (SDV) Z0FRAN ONE (19:27)
[2019-11-19] MEDS ORDERED: ONDANSETRON 4 MG/2 ML (SDV) Z0FRAN IVP ONE (19:30)
--- NOTE | 2019-11-19 19:39 | NUR ---
pain decreased from 7/10 to 6/10. bp dropped, additional ntg held.
[2019-11-19 19:40] LABS: BASOPHILS % (AUTO) 1 % (0-10); EOSINOPHILS # (AUTO) 0.2 10^3/uL (0.0-0.3); EOSINOPHILS % (AUTO) 2 % (0-10); HEMATOCRIT 36 % (40-54); HEMOGLOBIN 11.5 G/DL (13.3-17.7); LYMPHOCYTES % (AUTO) 27 % (12-44); MEAN CORPUSCULAR HGB CONC 32 G/DL (32-36); MEAN CORPUSCULAR VOLUME 70 FL (80-99); MEAN PLATELET VOLUME 9.3 FL (7.4-10.4); MONOCYTES % (AUTO) 14 % (0-12); NEUTROPHILS # (AUTO) 4.2 X 10^3 (1.8-7.8); NEUTROPHILS % (AUTO) 56 % (42-75); PLATELET COUNT 452 10^3/uL (130-400); WHITE BLOOD COUNT 7.4 10^3/uL (4.3-11.0)
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
[2019-11-19 19:41] LABS: MEAN CORPUSCULAR HEMOGLOBIN 22 PG (25-34)
--- NOTE | 2019-11-19 19:51 | Diagnostic Imaging Report ---
INDICATION: Chest pain. COMPARISON: 07/01/2019. EXAMINATION: Single view of the chest. FINDINGS: Stable cardiac enlargement. Chronic interstitial changes are seen in both lungs. There is no pneumothorax or effusion. Osseous structures are stable. IMPRESSION: No acute cardiopulmonary findings. Dictated by: Dictated on workstation # [id number]
[2019-11-19 19:55] LABS: ALBUMIN 4.4 GM/DL (3.2-4.5); BILIRUBIN,TOTAL 0.3 MG/DL (0.1-1.0); CALCIUM 9.8 MG/DL (8.5-10.1); CREATININE SERUM 1.6 MG/DL (0.60-1.30); MAGNESIUM 1.5 MG/DL (1.6-2.4); POTASSIUM 4.7 MMOL/L (3.6-5.0); TOTAL PROTEIN 7.6 GM/DL (6.4-8.2)
[2019-11-19 19:57] LABS: FIBRIN DEGRADATION PRODUCTS 1.74 UG/ML (0.00-0.49); PROTHROMBIN TIME PATIENT 13.7 SEC (12.2-14.7)
[2019-11-19] MEDS ORDERED: LORazepam INJ 2 MG/ML (ATIVAN) VIAL IVP ONE (20:15)
[2019-11-19 20:18] LABS: ANISOCYTOSIS SLIGHT; EOSINOPHILS % (MANUAL) 3 %; HYPOCHROMASIA MODERATE; LYMPHOCYTES % (MANUAL) 32 %; MICROCYTOSIS MODERATE; MONOCYTES % (MANUAL) 13 %; NEUTROPHILS % (MANUAL) 52 %; POIKILOCYTOSIS SLIGHT
== END 2019-11-19 20:38 | disposition left against medical advice (07) ==
LOC: EDUNIT# 18:49 → ER 18:51
DX: R07.89 Other chest pain (principal); R06.02 Shortness of breath; R11.0 Nausea; F41.9 Anxiety disorder, unspecified; N28.9 Disorder of kidney and ureter, unspecified; R79.1 Abnormal coagulation profile; J44.9 Chronic obstructive pulmonary disease, unspecified; E78.00 Pure hypercholesterolemia, unspecified; I10 Essential (primary) hypertension; K21.9 Gastro-esophageal reflux disease without esophagitis; M10.9 Gout, unspecified; F32.9 Major depressive disorder, single episode, unspecified; E11.9 Type 2 diabetes mellitus without complications; G89.29 Other chronic pain; M25.551 Pain in right hip; M25.552 Pain in left hip; M25.561 Pain in right knee; M25.562 Pain in left knee; M54.2 Cervicalgia; M54.9 Dorsalgia, unspecified; Z79.891 Long term (current) use of opiate analgesic; Z88.5 Allergy status to narcotic agent; Z95.9 Presence of cardiac and vascular implant and graft, unspecified; Z85.46 Personal history of malignant neoplasm of prostate; Z79.51 Long term (current) use of inhaled steroids; Z87.891 Personal history of nicotine dependence; Z82.49 Family history of ischemic heart disease and other diseases of the circulatory system
CPT/HCPCS: 36415; 71045; 80053; 83615; 83735; 83874; 83880; 84145; 84484; 85007; 85027; 85379; 85610; 85730; 86141; 93005; 93041

== ENCOUNTER 2020-02-22 12:21 | Inpatient (IN) | payer MEDICARE, MEDICAID ==
[~2020-02-22] VITALS: Ht 175 cm; Wt 85.7 kg
[~2020-02-22 12:21] MED LIST changes: +AMLO-251 PO; -AMLO10TA7 PO; +BUSP15TA60 PO; +FAMO40TA6 PO; -FLUT1BLS3; +FLUT1BLS3 INH; -NAPR-915; +NAPR-915 PO; +ONDA8TAB15 PO
[2020-02-22] MEDS ORDERED: NS IV 1000 ML 1,000 ML IV STA (12:28)
--- NOTE | 2020-02-22 12:35 | ED Syncope ---
General Stated Complaint: SYNCOPE Source of Information: Patient, EMS, EMS Notes Reviewed, Family, RN/MD, RN Notes Reviewed Exam Limitations: No Limitations History of Present Illness Date Seen by Provider: Feb 22, 2020 Time Seen by Provider: 12:20 Initial Comments This patient is a 74-year-old male presents to the emergency part for some near syncopal episode while at [facility]. Patient was just discharged from the hospital yesterday at [facility]. Patient was walking in [facility] with his son going down a couple house and noticed to get profoundly dizzy. Patient has had a history of dizziness since he gets dizzy for 5 times a day. Blood pressure on arrival is 153/84 heart rate of 125. Patient denies palpitations den ies chest pain. We'll do medical evaluation treatment is needed. I did discuss at length with patient's son over the telephone. By recent events. He confirms patient did not pass out. Patient did have a near syncopal episode complaint of dizziness complaint of nausea. They have patient to the floor. Family states the patient had a similar episode a few days ago when they were driving to the hospital at [facility] and then over to [facility] because [facility] was full. States he had a near syncopal episode while driving the car. Patient states he was admitted to the hospital because a concerns of partial small bowel obstruction. He also stated the patient does have a history of COPD. Denies any significant cardiac history. We'll do medical evaluation treatment is needed. Timing/Prior Episodes: No Prior History Symptoms Prior to Episode: Lightheadedness Precipitating Factors: Activity Loss of Consciousness: No Loss of Consciousness Current Symptoms: No Back to Normal, No Blurred Vision, No Chest Pain, No Di aphoresis; Dizziness; No Headache, No Injury, No Lightheadedness, No Loss of Bladder Control, No Loss of Bowel Control, No Motionless, No Nausea, No Pale, No Shallow/Rapid Breathing, No Weak/Absent Pulse, No Weakness, No Other Allergies and Home Medications Allergies Coded Allergies: morphine (Verified Allergy, Severe, HIVES, N/V,pt has rec. Lortab in the past w/o issue, 05/21/19) Home Medications Albuterol Sulfate 18 Gm Hfa.aer.ad, 2 PUFF INH Q6H PRN for SHORTNESS OF BREATH, (Reported) Allopurinol 300 Mg Tablet, 150 MG PO DAILY, (Reported) TAKES 1/2 (300MG) TABLET Amitriptyline HCl 100 Mg Tablet, 100 MG PO HS, (Reported) Atorvastatin Calcium 40 Mg Tablet, 40 MG PO HS, (Reported) Baclofen 10 Mg Tablet, 10 MG PO TID PRN for MUSCLE SPASMS, (Reported) Budesonide/Formoterol Fumarate 10.2 Gm Hfa.aer.ad, 2 PUFF IH BID, (Reported) Buspirone HCl 10 Mg Tablet, 5 MG PO DAILY, (Reported) TAKES 1/2 (10MG) TABLET Cetirizine HCl 10 Mg Tablet, 10 MG PO DAILY, (Reported) Cyclobenzaprine HCl 10 Mg Tablet, 10 MG PO TID PRN for MUSCLE SPASMS, (Reported) ALTERNATES WITH BACLOFEN Dexlansoprazole 60 Mg Cap.bp, 60 MG PO DAILY, (Reported) Fluticasone Propionate 9.9 Ml Haswell.susp, 1 SPRAY NS BID PRN for ALLERGIES, (Reported) Hydrocodone Bit/Acetaminophen 1 Each Tablet, 1 TAB PO Q6H PRN for PAIN-MODERATE Prescribed by: VAIBHAV WILKINSON on 11/26/18 1047 Lisinopril 40 Mg Tablet, 40 MG PO DAILY, (Reported) Metoprolol Succinate 100 Mg Tab.er.24h, 100 MG PO DAILY, (Reported) LAST FILLED #30 09-08-18 Montelukast Sodium 10 Mg Tablet, 10 MG PO HS, (Reported) Ondansetron 8 Mg Tab.rapdis, 8 MG PO Q6H PRN for NAUSEA/VOMITING-1ST LINE, (Reported) Sennosides 8.6 Mg Tablet, 1-2 TAB PO DAILY PRN for CONSTIPATION-5TH LINE, (Reported) Tamsulosin HCl 0.4 Mg Cap, 0.4 MG PO DAILY, (Reported) Patient Home Medication List Home Medication List Reviewed: Yes Review of Systems Constitutional: see HPI EENTM: No no symptoms reported, No ear discharge, No hearing loss, No ear pain, No blurred vision, No double vision, No eye pain, No tearing, No vision loss, No dental problems, No hoarseness, No mouth pain, No mouth swelling, No epistaxis, No nose congestion, No nose pain, No throat pain, No throat swelling, No other Respiratory: No no symptoms reported, No see HPI, No cough, No dyspnea on exertion, No hemoptysis, No orthopnea, No phlegm, No short of breath, No stridor, No wheezing, No other Cardiovascular: No no symptoms reported, No see HPI, No chest pain, No edema, No Hx of Intervention, No palpitations, No syncope, No vascular heart diseas, No other Gastrointestinal: see HPI Genitourinary: No no symptoms reported, No see HPI, No decreased output, No discharge, No dysuria, No frequency, No hematuria, No hesitancy, No incontinence, No nocturia, No pain, No other Musculoskeletal: No no symptoms reported, No see HPI, No back pain, No gout, No joint pain, No joint swelling, No muscle pain, No muscle stiffness, No muscle cramps, No muscle twitching, No muscle weakness, No neck pain, No other Skin: No no symptoms reported, No see HPI, No change in color, No change in hair/nails, No dryness, No hx of skin cancer, No lesions, No lumps, No pruritus, No rash, No other Psychiatric/Neurological: Denies No Symptoms Reported, Denies See HPI, Denies Anxiety, Denies Depressed, Denies Emotional Problems, Denies Headache, Denies Numbness, Denies Paresthesia, Denies Pre-Existing Deficit, Denies Seizure, Denies Tingling, Denies Tremors, Denies Weakness, Denies Other All Other Systems Reviewed Negative Unless Noted: Yes Past Ddzyshd-Sbqocp-Yqvmpp Hx Patient Social History Type Used: Cigarettes Former Smoker, Quit: Nov 06, 1990 2nd Hand Smoke Exposure: No Recent Hopitalizations: No Immunizations Up To Date Tetanus Booster (TDap): Unknown PED Vaccines UTD: No Date of Pneumonia Vaccine: Nov 25, 2016 Date of Influenza Vaccine: Jan 12, 2019 Seasonal Allergies Seasonal Allergies: No Past Medical History Surgeries: Yes (CARPAL TUNNEL BILAT, BACK X3, R SHOULDER REPLACEMEN, L HIP REPLACE, L TKR) Abdominal, Cardiac, Joint Replacement, Orthopedic, Transurethral Resection Respiratory: Yes (COPD, sleep apnea) Asthma, Pulmonary Embolism, Sleep Apnea, COPD Currently Using CPAP: Yes Currently Using BIPAP: No Cardiac: Yes (Mitral Valve Prolapse) High Cholesterol, Hypertension, Valvular Heart Disease Neurological: No Reproductive Disorders: No Sexually Transmitted Disease: No HIV/AIDS: No Genitourinary: Yes (Prostate cancer, BPH) Benign Prostatic Hyperpl, Prostate Problems Gastrointestinal: Yes (Bowel obstruction x2) Abdominal Hernia, Gastroesophageal Reflux, Obstructive Bowel, Hiatal Hernia, Ulcer Musculoskeletal: Yes (CHRONIC BILATERAL HIP PAIN, BILATERAL KNEE PAIN, NECK AND BACK PAIN ) Degenerate Disk Disease, Arthritis, Back Injury, Chronic Back Pain, Gout Endocrine: No Diabetes, Non-Insulin dep HEENT: No Loss of Vision: Bilateral Hearing Impairment: Denies Cancer: Yes Prostate Did You Recieve Any Treatments: Yes What Type of Treatment Did You: Radiation, Surgical Intervention Psychosocial: Yes Anxiety, Depression Integumentary: No Blood Disorders: No Adverse Reaction/Blood Tranf: No Family Medical History Cardiovascular disease 19 MOTHER Myocardial infarction 19 MOTHER, Onset:62 G8 SISTER No Pertinent Family Hx, Heart Disease, Other Conditions/Hx Physical Exam Vital Signs Vital Signs - First Documented 02/22/20 12:25 Temp 36.7 Pulse 126 Resp 19 B/P (MAP) 153/84 (107) Pulse Ox 96 O2 Delivery Room Air Capillary Refill : Height, Weight, BMI Height: 5'9.00" Weight: 172lbs. 5.0oz. [id number]; 30.00 BMI Method:Stated General Appearance: No Apparent Distress, WD/WN Cardiovascular: Regular Rate, Rhythm, No Edema, No Gallop, No JVD, No Murmur, Normal Peripheral Pulses Respiratory: Chest Non Tender, Lungs Clear, Normal Breath Sounds, No Accessory Muscle Use, No Respiratory Distress Gastrointestinal: Normal Bowel Sounds, No Organomegaly, No Pulsatile Mass, Non Tender, Soft Back: Normal Inspection, No CVA Tenderness, No Vertebral Tenderness Neurologic/Psychiatric: Alert, Oriented x3, No Motor/Sensory Deficits, Normal Mood/Affect Cranial Nerves: Normal Hearing, Normal Speech, PERRL Coordination/Gait: Normal Finger to Nose, Normal Gait, Negative Romberg's Sign Skin: Normal Color, Warm/Dry, Cool Progress/Results/Core Measures Results/Orders Lab Results Laboratory Tests Test 02/22/20 12:35 02/22/20 12:45 Range/Units White Blood Count 7.5 4.3-11.0 10^3/uL Red Blood Count 4.46 4.35-5.85 10^6/uL Hemoglobin 9.4 L 13.3-17.7 G/DL Hematocrit 31 L 40-54 % Mean Corpuscular Volume 70 L 80-99 FL Mean Corpuscular Hemoglobin 21 L 25-34 PG Mean Corpuscular Hemoglobin Concent 30 L 32-36 G/DL Red Cell Distribution Width 17.0 H 10.0-14.5 % Platelet Count 409 H 130-400 10^3/uL Mean Platelet Volume 9.1 7.4-10.4 FL Immature Granulocyte % (Auto) 1 % Neutrophils (%) (Auto) 63 42-75 % Lymphocytes (%) (Auto) 25 12-44 % Monocytes (%) (Auto) 7 0-12 % Eosinophils (%) (Auto) 3 0-10 % Basophils (%) (Auto) 1 0-10 % Neutrophils # (Auto) 4.7 1.8-7.8 X 10^3 Lymphocytes # (Auto) 1.9 1.0-4.0 X 10^3 Monocytes # (Auto) 0.6 0.0-1.0 X 10^3 Eosinophils # (Auto) 0.2 0.0-0.3 10^3/uL Basophils # (Auto) 0.1 0.0-0.1 10^3/uL Immature Granulocyte # (Auto) 0.1 0.0-0.1 10^3/uL Prothrombin Time 14.0 12.2-14.7 SEC INR Comment 1.1 0.8-1.4 Sodium Level 133 L 135-145 MMOL/L Potassium Level 4.1 3.6-5.0 MMOL/L Chloride Level 99 98-107 MMOL/L Carbon Dioxide Level 21 21-32 MMOL/L Anion Gap 13 5-14 MMOL/L Blood Urea Nitrogen 12 7-18 MG/DL Creatinine 1.24 0.60-1.30 MG/DL Estimat Glomerular Filtration Rate 57 BUN/Creatinine Ratio 10 Glucose Level 171 H 70-105 MG/DL Calcium Level 9.0 8.5-10.1 MG/DL Corrected Calcium 8.8 8.5-10.1 MG/DL Total Bilirubin 0.4 0.1-1.0 MG/DL Aspartate Amino Transf (AST/SGOT) 20 5-34 U/L Alanine Aminotransferase (ALT/SGPT) 13 0-55 U/L Alkaline Phosphatase 105 40-136 U/L Troponin I < 0.30 <0.30 NG/ML Pro-B-Type Natriuretic Peptide 203.8 H <75.0 PG/ML Total Protein 6.6 6.4-8.2 GM/DL Albumin 4.2 3.2-4.5 GM/DL Urine Color YELLOW Urine Clarity CLEAR Urine pH 6.0 5-9 Urine Specific Oriental 1.020 1.016-1.022 Urine Protein 1+ H NEGATIVE Urine Glucose (UA) NEGATIVE NEGATIVE Urine Ketones NEGATIVE NEGATIVE Urine Nitrite NEGATIVE NEGATIVE Urine Bilirubin 1+ H NEGATIVE Urine Urobilinogen 0.2 < = 1.0 MG/DL Urine Leukocyte Esterase TRACE H NEGATIVE Urine RBC (Auto) TRACE H NEGATIVE Urine RBC RARE /HPF Urine WBC 0-2 /HPF Urine Squamous Epithelial Cells RARE /HPF Urine Crystals NONE /LPF Urine Bacteria TRACE /HPF Urine Casts PRESENT /LPF Urine Hyaline Casts 0-2 H /LPF Urine Granular Casts RARE /LPF Urine Mucus SMALL H /LPF Urine Culture Indicated NO Urine Opiates Screen POSITIVE H NEGATIVE Urine Oxycodone Screen NEGATIVE NEGATIVE Urine Methadone Screen NEGATIVE NEGATIVE Urine Propoxyphene Screen NEGATIVE NEGATIVE Urine Barbiturates Screen NEGATIVE NEGATIVE Ur Tricyclic Antidepressants Screen POSITIVE H NEGATIVE Urine Phencyclidine Screen NEGATIVE NEGATIVE Urine Amphetamines Screen NEGATIVE NEGATIVE Urine Methamphetamines Screen NEGATIVE NEGATIVE Urine Benzodiazepines Screen NEGATIVE NEGATIVE Urine Cocaine Screen NEGATIVE NEGATIVE Urine Cannabinoids Screen NEGATIVE NEGATIVE My Orders Orders - MICHAELA CASTANEDA MD Ct Head Wo (02/22/20 12:28) Ed Iv/Invasive Line Start (02/22/20 12:28) Cbc With Automated Diff (02/22/20 12:28) Comprehensive Metabolic Panel (02/22/20 12:28) Urinalysis (02/22/20 12:28) Troponin I Fs (02/22/20 12:28) Protime With Inr (02/22/20 12:28) Probnp Fs (02/22/20 12:28) Drug Screen Stat (Urine) (02/22/20 12:28) Ekg Tracing (02/22/20 12:28) Chest 1 View Ap/Pa Only (02/22/20 12:28) Ns Iv 1000 Ml (Sodium Chloride 0.9%) (02/22/20 12:28) Orthostatic Vital Signs (Adult (02/22/20 12:28) Ondansetron Injection (Zofran Injectio (02/22/20 12:45) Medications Given in ED Current Medications Medications Dose Ordered Sig/Allison Route Start Time Stop Time Status Last Admin Dose Admin Ondansetron HCl 4 mg ONCE ONCE IVP 02/22/20 12:45 02/22/20 12:46 DC 02/22/20 12:38 4 MG Vital Signs/I&O 02/22/20 02/22/20 12:25 12:49 Temp 36.7 Pulse 126 123 131 139 Resp 19 B/P (MAP) 153/84 (107) 145/84 (104) 106/63 (77) 85/55 (65) Pulse Ox 96 O2 Delivery Room Air Progress Progress Note : Time: 13:38 Progress Note Patient profoundly orthostatic. Blood pressure 160 systolic lying and standing drops to 85 systolic. Heart rate still consistently 1:15 to 125. Sinus tach rhythm. Remote history of syncope compliance in the past patient does have issues with or the static dizziness from time to time. Recent discharge from [facility] and [facility] one day ago but unable to return back to the facility due to no bed availability. Patient also unavailable to go to [facility] due to same issue. diversion due to no bed availability. I did discuss at length with Dr. Combs hospitalist for [facility] at [facility] to has accepted the patient for transfer patient be transferred as soon as possible. We'll continue IV fluids. Initial ECG Impression Date: Feb 22, 2020 Initial ECG Impression Time: 12:26 Initial ECG Rate: 125 Initial ECG Rhythm: S.Tach Initial ECG Intervals: Normal Initial ECG Impression: Nonspecific Changes Comment Sinus tachycardia heart rate 125 nonspecific EKG changes. Departure Impression Primary Impression: Syncope due to orthostatic hypotension Disposition: 30 STILL A PATIENT Condition: Stable Admissions Decision to Admit Reason: Admit from ER (General) Decision to Admit/Date: Feb 22, 2020 Time/Decision to Admit Time: 13:39 Transfer Transfer Reason: Exceeds level of care Time Spoke to Accepting Phy: 13:[address] Combs Transfer Time: 13:39 Transfer Facility: [facility] Method of Transfer: EMS Departure-Patient Inst. Referrals: [facility] (PCP) Primary Care Physician CATHIE THORPE (Family) Primary Care Physician MICHAELA CASTANEDA MD Feb 22, 2020 12:34
[2020-02-22 12:41] LABS: HEMATOCRIT 31 % (40-54); HEMOGLOBIN 9.4 G/DL (13.3-17.7); LYMPHOCYTES % (AUTO) 25 % (12-44); MEAN CORPUSCULAR HEMOGLOBIN 21 PG (25-34); MEAN CORPUSCULAR HGB CONC 30 G/DL (32-36); MEAN CORPUSCULAR VOLUME 70 FL (80-99); MEAN PLATELET VOLUME 9.1 FL (7.4-10.4); MONOCYTES % (AUTO) 7 % (0-12); NEUTROPHILS % (AUTO) 63 % (42-75); PLATELET COUNT 409 10^3/uL (130-400); WHITE BLOOD COUNT 7.5 10^3/uL (4.3-11.0)
[2020-02-22 12:42] LABS: BASOPHILS # (AUTO) 0.1 10^3/uL (0.0-0.1); BASOPHILS % (AUTO) 1 % (0-10); EOSINOPHILS # (AUTO) 0.2 10^3/uL (0.0-0.3); EOSINOPHILS % (AUTO) 3 % (0-10); LYMPHOCYTES # (AUTO) 1.9 X 10^3 (1.0-4.0); MONOCYTES # (AUTO) 0.6 X 10^3 (0.0-1.0); NEUTROPHILS # (AUTO) 4.7 X 10^3 (1.8-7.8)
[2020-02-22] MEDS ORDERED: ONDANSETRON 4 MG/2 ML (SDV) Z0FRAN IVP ONE (12:45)
[2020-02-22 12:49] VITALS: BP_SYST 106; BP_SYST 145; BP_SYST 85; BP_DIAS 55; BP_DIAS 63; BP_DIAS 84
[2020-02-22 13:03] LABS: CLARITY,URINE CLEAR; COLOR,URINE YELLOW; GLUCOSE, URINE (UA) NEGATIVE (NEGATIVE); KETONES,URINE NEGATIVE (NEGATIVE); NITRITE,URINE NEGATIVE (NEGATIVE); PROTEIN,URINE 1+ (NEGATIVE)
[2020-02-22 13:04] LABS: BACTERIA,URINE TRACE /HPF; BILIRUBIN,URINE 1+ (NEGATIVE); GRANULAR CASTS,URINE RARE /LPF; HYALINE CASTS, URINE 0-2 /LPF; LEUKOCYTE ESTERASE ,URINE TRACE (NEGATIVE); RBC,URINE RARE /HPF; SQUAMOUS EPITHELIAL CELL,UR RARE /HPF; WBC,URINE 0-2 /HPF
[2020-02-22 13:06] LABS: AMPHETAMINE SCREEN, URINE NEGATIVE (NEGATIVE); BARBITURATE SCREEN URINE NEGATIVE (NEGATIVE); BENZODIAZEPINES SCREEN URINE NEGATIVE (NEGATIVE); CANNABINOID SCREEN, URINE NEGATIVE (NEGATIVE); COCAINE SCREEN URINE NEGATIVE (NEGATIVE); METHADONE STAT NEGATIVE (NEGATIVE); METHAMPHETAMINE SCREEN URINE S NEGATIVE (NEGATIVE); OPIATE SCREEN URINE POSITIVE (NEGATIVE); OXYCODONE STAT NEGATIVE (NEGATIVE); PROPOXYPHENE STAT NEGATIVE (NEGATIVE); TRICYCLIC ANTIDEPRESSANTS SCRE POSITIVE (NEGATIVE)
--- NOTE | 2020-02-22 13:08 | Diagnostic Imaging Report ---
INDICATION: Syncope. COMPARISON: 11/19/2019. FINDINGS: Single frontal view of the chest demonstrates normal heart size and pulmonary vascularity. The lungs are well aerated and clear. No large pleural effusion or pneumothorax is seen. The visualized osseous structures show no acute abnormalities. IMPRESSION: 1. No acute cardiopulmonary process. Dictated by: Dictated on workstation # [id number]
[2020-02-22 13:09] LABS: ALKALINE PHOSPHATASE 105 U/L (40-136); BILIRUBIN,TOTAL 0.4 MG/DL (0.1-1.0); BUN/CREATININE RATIO 10; CARBON DIOXIDE 21 MMOL/L (21-32); CHLORIDE 99 MMOL/L (98-107); CREATININE SERUM 1.24 MG/DL (0.60-1.30); GFR ESTIMATED 57; GLUCOSE 171 MG/DL (70-105); POTASSIUM 4.1 MMOL/L (3.6-5.0); SODIUM 133 MMOL/L (135-145)
[2020-02-22 13:10] LABS: ALANINE AMINOTRANSFERASE 13 U/L (0-55); ALBUMIN 4.2 GM/DL (3.2-4.5); TOTAL PROTEIN 6.6 GM/DL (6.4-8.2)
[2020-02-22 13:11] LABS: INR 1.1 (0.8-1.4)
--- NOTE | 2020-02-22 13:18 | Diagnostic Imaging Report ---
INDICATION: Syncope. TECHNIQUE: Multiple contiguous axial images were obtained through the brain without the use of intravenous contrast. Auto Exposure Controls were utilized during the CT exam to meet ALARA standards for radiation dose reduction. COMPARISON: Comparison made to 11/25/2018. FINDINGS: There are no extra-axial fluid collections. No intracranial hemorrhage. No intracranial mass or mass effect. No midline shift. The ventricles are normal in size and position. There were no focal parenchymal abnormalities in the brain. Calvarial windows were unremarkable. IMPRESSION: No acute intracranial abnormality and no change from 11/25/2018. Dictated by: Dictated on workstation # [id number]
--- NOTE | 2020-02-22 15:37 | NUR ---
Татьяна Perry admitted to room 508-1, with an admitting diagnosis of syncope, on 02/22/20 from AM via , accompanied by .ТАТЬЯНА PERRY introduced to surroundings, call light, bed controls, phone, TV, temperature control, lights, meal times, smoking policy, visitor policy, side rail policy, bathrooms and showers. Patient Rights given to patient in the handbook.ТАТЬЯНА PERRY verbalizes understanding that [facility] is not responsible for the loss or damage to any personal effects or valuables that are kept in the patients posession during their hospitalization. ТАТЬЯНА PERRY verbalizes understanding of Interdisciplinary Patient Education. Patient and/or family were informed about the Rapid Response Team and its purpose.
[2020-02-22] MEDS ORDERED: CATHETER FLUSH 10 ML SYR IV PRN (15:45)
[2020-02-22] MEDS ORDERED: FLU QUAD HIGH DOSE 240 MCG/0.7 ML 2020-21 (FLUZONE) IM ONE (15:45)
[2020-02-22] MEDS: NS IV 1000 ML 1,000 ML IV SCH ×2 (15:51→20:21)
[2020-02-22] MEDS ORDERED: RELABEL FOR HOME USE MC SCH (17:45)
[2020-02-22] MEDS ORDERED: MELATONIN 3 MG TABLET PO PRN (18:00)
[2020-02-22] MEDS ORDERED: ACETAMINOPHEN 500 MG TAB (TYLENOL) PO PRN (18:00)
[2020-02-22] MEDS ORDERED: ONDANSETRON 4 MG/2 ML (SDV) Z0FRAN IVP PRN (18:00)
[2020-02-22] MEDS ORDERED: NON-FORMULARY MEDICATION 1 EA EA (Fluticasone Propionate (Flonase Allergy Relief) 1 SPRAY) NS PRN (18:00)
[2020-02-22] MEDS ORDERED: ENOXAPARIN 40 MG/0.4 ML (LOVENOX) SYR SC SCH (18:00)
[2020-02-22] MEDS ORDERED: DOCUSATE SODIUM 100 MG (COLACE) CAP PO PRN (18:00)
[2020-02-22] MEDS ORDERED: BACLOFEN 10 MG (LIORESAL) TAB PO PRN (18:00)
[2020-02-22] MEDS ORDERED: ALPRAZolam 0.25 MG (XANAX) TAB PO PRN (18:00)
[2020-02-22] MEDS ORDERED: HYDROcodone/APAP 5 MG/325 MG (LORTAB) TAB PO PRN (18:00)
[2020-02-22] MEDS ORDERED: LOPERAMIDE 2 MG (IMODIUM) TABLET PO PRN (18:00)
[2020-02-22] MEDS ORDERED: HYDROcodone/APAP 10 MG/325 MG (LORTAB) TAB PO PRN (18:00)
[2020-02-22] MEDS ORDERED: CALCIUM CARBONATE 500 MG (TUMS) TAB.CHEW PO PRN (18:00)
[2020-02-22] MEDS ORDERED: PATIENT MAY USE OWN MED,SINGLE MED PO SCH (18:15)
[2020-02-22] MEDS ORDERED: FLUTICASONE NASAL SPRAY (FLONASE) 16 GM BTL NS PRN (18:30)
[2020-02-22] MEDS: HYDROcodone/APAP 5 MG/325 MG (LORTAB) TAB PO PRN (18:53)
[2020-02-22] MEDS: AMITRIPTYLINE 50 MG (ELAVIL) TAB PO SCH (20:19)
[2020-02-22] MEDS: MONTELUKAST 10 MG (SINGULAIR) TAB PO SCH (20:20)
[2020-02-22] MEDS: SENNA W/DOCUSATE (SENOKOT S) TABLET PO SCH (20:20)
[2020-02-22] MEDS: FAMOTIDINE 20 MG (PEPCID) TABLET PO SCH (20:20)
[2020-02-22] MEDS ORDERED: NON-FORMULARY MEDICATION 1 EA EA (Budesonide/Formoterol Fumarate (Symbicort 160-4.5 Mcg In IH SCH (21:00)
[2020-02-22] MEDS ORDERED: FAMOTIDINE 40 MG (PEPCID) TABLET PO SCH (21:00)
[2020-02-22] MEDS ORDERED: NON-FORMULARY MEDICATION 1 EA EA (Amitriptyline HCl 100 MG) PO SCH (21:00)
[2020-02-23] MEDS: HYDROcodone/APAP 5 MG/325 MG (LORTAB) TAB PO PRN ×5 (01:03→21:15)
[2020-02-23] MEDS: diphenhydrAMINE 25 MG TAB (BENADRYL) PO PRN ×2 (01:42→21:05)
[2020-02-23 04:27] LABS: BASOPHILS % (AUTO) 1 % (0-10); EOSINOPHILS # (AUTO) 0.3 10^3/uL (0.0-0.3); EOSINOPHILS % (AUTO) 5 % (0-10); HEMATOCRIT 25 % (40-54); HEMOGLOBIN 7.5 g/dL (13.3-17.7); LYMPHOCYTES # (AUTO) 1.7 10^3/uL (1.0-4.0); LYMPHOCYTES % (AUTO) 31 % (12-44); MEAN CORPUSCULAR HEMOGLOBIN 21 pg (25-34); MEAN CORPUSCULAR HGB CONC 30 g/dL (32-36); MEAN CORPUSCULAR VOLUME 72 fL (80-99); MEAN PLATELET VOLUME 9.5 fL (9.0-12.2); MONOCYTES # (AUTO) 0.7 10^3/uL (0.0-1.0); MONOCYTES % (AUTO) 14 % (0-12); NEUTROPHILS # (AUTO) 2.7 10^3/uL (1.8-7.8); NEUTROPHILS % (AUTO) 50 % (42-75); PLATELET COUNT 310 10^3/uL (130-400); WHITE BLOOD COUNT 5.5 10^3/uL (4.3-11.0)
[2020-02-23 04:41] LABS: ALBUMIN 3.4 GM/DL (3.2-4.5)
[2020-02-23 04:42] LABS: CHLORIDE 106 MMOL/L (98-107); SODIUM 136 MMOL/L (135-145)
[2020-02-23 04:44] LABS: GLUCOSE 111 MG/DL (70-105); TOTAL PROTEIN 5.3 GM/DL (6.4-8.2)
[2020-02-23 04:45] LABS: CARBON DIOXIDE 21 MMOL/L (21-32)
[2020-02-23 04:46] LABS: BILIRUBIN,TOTAL 0.3 MG/DL (0.1-1.0)
[2020-02-23 04:47] LABS: ALKALINE PHOSPHATASE 70 U/L (40-136)
[2020-02-23 04:48] LABS: CREATININE SERUM 0.98 MG/DL (0.60-1.30); GFR ESTIMATED > 60
[2020-02-23 04:49] LABS: BUN/CREATININE RATIO 11
[2020-02-23 04:51] LABS: ALANINE AMINOTRANSFERASE 13 U/L (0-55)
[2020-02-23] MEDS: NS IV 1000 ML 1,000 ML IV SCH (07:52)
[2020-02-23] MEDS: SENNA W/DOCUSATE (SENOKOT S) TABLET PO SCH ×2 (08:38→21:03)
[2020-02-23] MEDS: amLODIPine 10 MG (NORVASC) TAB PO SCH (08:38)
[2020-02-23] MEDS: PANTOPRAZOLE 40 MG (PROTONIX) TAB PO SCH (08:38)
[2020-02-23] MEDS: TAMSULOSIN 0.4 MG (FLOMAX) CAP PO SCH (08:38)
[2020-02-23] MEDS: LORATADINE (CLARITIN) 10 MG TAB PO SCH (08:38)
[2020-02-23] MEDS: lisINopril 40 MG (PRINIVIL) TABLET PO SCH (08:39)
[2020-02-23] MEDS: HYDROCHLOROTHIAZIDE 25 MG (HCTZ) TAB PO SCH (08:39)
[2020-02-23] MEDS: ALLOPURINOL 300 MG (ZYLOPRIM) TAB PO SCH (08:40)
[2020-02-23] MEDS: FAMOTIDINE 20 MG (PEPCID) TABLET PO SCH ×2 (08:43→21:04)
[2020-02-23] MEDS ORDERED: busPIRone 10 MG (BUSPAR) TAB PO SCH (09:00)
[2020-02-23] MEDS ORDERED: meTOprolol SUCCINATE 100 MG (TOPROL XL) TAB PO SCH (09:00)
[2020-02-23] MEDS ORDERED: NON-FORMULARY MEDICATION 1 EA EA (Dexlansoprazole (Dexilant) 60 MG) PO SCH (09:00)
[2020-02-23] MEDS ORDERED: NON-FORMULARY MEDICATION 1 EA EA (Cetirizine HCl 10 MG) PO SCH (09:00)
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
[2020-02-23] MEDS ORDERED: IRON SUCROSE 200 MG/10 ML (VENOFER) VIAL IV NR (09:30)
[2020-02-23] MEDS ORDERED: FUROSEMIDE 40 MG/4 ML INJ (LASIX) IVP NR (10:15)
[2020-02-23] MEDS ORDERED: NS IV 500 ML 500 ML IV SCH ×2 (10:15)
--- NOTE | 2020-02-23 10:36 | History & Physical-Hospitalist ---
ISABELA NGO MED STUDENT 02/23/20 1036: History of Present Illness HPI/Chief Complaint Mr. Perry is a 74 year old male that presented to the ED yesterday following a syncopal episode. He was at a store following a discharge from another hospital when he had this episode. He said that he started to go down and then caught himself. He then claims he lost consciousness for an unknown amount of time. He states that these syncopal episodes are new to him, and have been occurring for maybe a couple months or so. He states that when he gets this feeling of dizziness he needs to sit. He was in the hospital previously for a SBO and has since resolved. He states that he has a known stomach bleed that is being monitored by another doctor, he has an appointment for followup regarding this. He states that while in the hospital he has not had any episodes of sudden dizziness, even when standing. He was found to be orthostatic in the ER, with a standing BP of 85. He was consulted by surgery this morning. His hemoglobin has decreased to 7.5 from over 9 yesterday. He agreed to receive 2 units of blood today. Source: patient Exam Limitations: no limitations Date Seen 02/23/20 Time Seen by a Provider: 08:41 Attending Physician Bianca Nunn DO [facility] Referring Physician Date of Admission Feb 23, 2020 at 10:00 Home Medications & Allergies Home Medications Reviewed patient Home Medication Reconciliation performed by pharmacy medication reconciliations certified veterinary technician and/or nursing. Patients Allergies have been reviewed. Allergies Allergies Coded Allergies morphine (Verified Allergy, Severe, HIVES, N/V,pt has rec. Lortab in the past w/o issue, 05/21/19) Past Cchgsjw-Mscpst-Oktoos Hx Past Med/Social Hx: Reviewed Nursing Past Med/Soc Hx Patient Social History Marrital Status: Alcohol Use: Denies Use Recreational Drug Use: No Smoking Status: Former Smoker Former Smoker, Quit: Nov 06, 1990 Type Used: Cigarettes 2nd Hand Smoke Exposure: No Physical Abuse Screen: No Sexual Abuse: No Recent Foreign Travel: No Contact w/other who traveled: No Recent Hopitalizations: No Recent Infectious Disease Expo: No Immunizations Up To Date Tetanus Booster (TDap): Unknown Pediatric: No Date of Pneumonia Vaccine: Nov 25, 2016 Date of Influenza Vaccine: Jan 12, 2019 Seasonal Allergies Seasonal Allergies: No Past Medical History Surgeries: Abdominal, Cardiac, Eye Surgery (cataract), Joint Replacement (hips and knees), Orthopedic, Transurethral Resection Currently Using CPAP: Yes Currently Using BIPAP: No Cardiac: High Cholesterol, Hypertension, Valvular Heart Disease Reproductive: No Sexually Transmitted Disease: No HIV/AIDS: No Genitourinary: Benign Prostatic Hyperpl, Prostate Problems Gastrointestinal: Abdominal Hernia, Gastroesophageal Reflux, Obstructive Bowel, Hiatal Hernia, Ulcer Musculoskeletal: Degenerate Disk Disease, Arthritis, Back Injury, Chronic Back Pain, Gout Endocrine: Diabetes, Non-Insulin dep Loss of Vision: Bilateral Hearing Impairment: Denies Cancer: Prostate Did You Recieve Any Treatments: Yes What Type of Treatment Did You: Radiation, Surgical Intervention Psychosocial: Anxiety, Depression History of Blood Disorders: No Adverse Reaction to Blood Workman: No Family History Cardiovascular disease 19 MOTHER Myocardial infarction 19 MOTHER, Onset:62 G8 SISTER No Pertinent Family Hx, Heart Disease, Other Conditions/Hx Review of Systems Constitutional: no symptoms reported EENTM: no symptoms reported Respiratory: short of breath (Patient states he has chronic SOB due to COPD) Cardiovascular: no symptoms reported Gastrointestinal: no symptoms reported Genitourinary: no symptoms reported Musculoskeletal: joint pain (Bilateral knee pain, from falling on knees, both knees have been replaced.) Skin: no symptoms reported Psychiatric/Neurological: Depressed (Pt complains of some feeling of depression due to recent passing of . Became tearful.) Physical Exam Physical Exam Vital Signs Vital Signs - First Documented 02/22/20 02/23/20 12:25 09:33 Temp 36.7 Pulse 126 Resp 19 B/P (MAP) 153/84 (107) Pulse Ox 96 O2 Delivery Room Air O2 Flow Rate 2.00 Capillary Refill : Less Than 3 Seconds Height, Weight, BMI Height: 5'9.00" Weight: 172lbs. 5.0oz. [id number]; 27.46 BMI Method:Stated General Appearance: No Apparent Distress Eyes: Bilateral Eye Normal Inspection, Bilateral Eye PERRL HEENT: PERRL/EOMI Neck: Full Range of Motion, Normal Inspection, Non Tender, Supple Respiratory: Chest Non Tender, Lungs Clear, Normal Breath Sounds, No Accessory Muscle Use, No Respiratory Distress Cardiovascular: Regular Rate, Rhythm, No Edema, No Gallop, No Murmur Gastrointestinal: Normal Bowel Sounds, No Organomegaly, Non Tender Rectal: Deferred Extremity: Normal Range of Motion, Non Tender, No Pedal Edema Neurologic/Psychiatric: Alert, Oriented x3 Skin: Normal Color, Warm/Dry Lymphatic: No Adenopathy Results Results/Procedures Labs Laboratory Tests 02/22/20 12:35 02/23/20 03:37 Patient resulted labs reviewed. Assessment/Plan Admission Diagnosis Syncopal Episode/Orthostatic Hypotension Admission Status: Inpatient Order (span 2 midnights) Reason for Inpatient Admission: Syncope and orthostatic hypotension following a recent hospital stay, with anemia Assessment and Plan Continue to monitor patients BP Continue patients normal meds, and pain meds for knee pain Give 2 units of blood for anemia Morning labs CBC CMP Ensure that patient keeps his appointments to address bleed and heart problems Surg consult in case of severely worsening anemia Possible D/C tomorrow if pt stable Diagnosis/Problems Diagnosis/Problems (1) Chronic hypertension (2) Orthostatic hypotension (3) Bleeding stomach ulcer (4) Anemia (5) Bilateral knee pain (6) Syncope due to orthostatic hypotension Status: Acute (7) COPD (chronic obstructive pulmonary disease) Clinical Quality Measures DVT/VTE Risk/Contraindication: Risk Factor Score Per Nursin RFS Level Per Nursing on Admit: 4+=Very High Contraindications-Pharm: Other *list below* Other: [facility] Supervisory-Addendum Brief Verification & Attestation Participated in pt care: history, physical Personally performed: exam, history Care discussed with: other Procedures: n/a NUNNBIANCA GUAN 02/24/20 0551: History of Present Illness HPI/Chief Complaint CC: Syncope HPI: This is a 74yoWM pt of [facility] who just left [facility] after admission for a small bowel obstruction the day before and he was at [place] when he had a syncopal episode and he was taken to the ER, found to be hypotensive, tachycardiac, and anemic. He was admitted, placed on IV fluids and currently Hgb is 7.5 with tachycardia and hypotension also. He does have a history of chronic GI bleed Pepcid BID was maintained along with the addition of Protonix and he will have follow-up at [facility] for that condition. The decision was made to give two units of blood and stop the Lovenox due to contraindication of active GI bleeding and transfer to fourth floor. Appreciate Dr. Suarez and Dr. Vieyra consultation. Past Rwchowj-Djwibp-Irdqgy Hx Past Med/Social Hx: Reviewed Nursing Past Med/Soc Hx, Reviewed and Corrections made Patient Social History Marrital Status: Employed/Student: unemployed Past Medical History Cardiac: Coronary Artery Disease, High Cholesterol, Hypertension Gastrointestinal: Gastrointestinal Bleed Family History Cardiovascular disease 19 MOTHER Myocardial infarction 19 MOTHER, Onset:62 G8 SISTER Review of Systems Constitutional: see HPI, dizziness, malaise, weakness Physical Exam Physical Exam General Appearance: No Apparent Distress, Chronically ill Respiratory: Chest Non Tender, Lungs Clear, Normal Breath Sounds, No Accessory Muscle Use, No Respiratory Distress Cardiovascular: Regular Rate, Rhythm, No Edema, No Gallop, No JVD, No Murmur, Normal Peripheral Pulses Neurologic/Psychiatric: Alert, Oriented x3, No Motor/Sensory Deficits, Normal Mood/Affect Assessment/Plan Admission Diagnosis Assessment: Orthostasis from GIB and severe anemia with tachycardia and syncope Reason for Inpatient Admission: syncope and GIB Supervisory-Addendum Brief Verification & Attestation Participated in pt care: history, MDM, physical Personally performed: exam, history, MDM, supervision of care Care discussed with: Medical Student Procedures: n/a Results interpretation: Verified all documentation Verification and Attestation of Medical Student E/M Service A medical student performed and documented this service in my presence. I reviewed and verified all information documented by the medical student and made modifications to such information, when appropriate. I personally performed the physical exam and medical decision making. Bianca Nunn, Feb 24, 2020,05:51 ISABELA GNO MED STUDENT Feb 23, 2020 10:36 BIANCA NUNN DO Feb 24, 2020 05:51
[2020-02-23] MEDS ORDERED: GABA-486 PO (11:48)
[2020-02-23] MEDS ORDERED: METO50TA7 PO (11:48)
[2020-02-23] MEDS ORDERED: ACHD5005 PO (11:48)
[2020-02-23] MEDS ORDERED: DULO60CA59 PO (11:48)
[2020-02-23] MEDS ORDERED: TIZA4TAB4 PO (12:01)
--- NOTE | 2020-02-23 12:09 | NUR ---
SPOKE WITH THE PT- UNFORTUNATELY HE WAS NOT ABLE TO GIVE ME ANY INFORMATION REGARDING HIS MEDICATIONS BUT SAID HIS SON ТАТЬЯНА MCLAUGHLIN TAKES CARE OF HIS MEDS AND SET THEM UP. I CALLED ТАТЬЯНА MCLAUGHLIN, GOT A MED LIST FROM [facility], WENT THRU THE EXT MED HISTORY AND CALLED [facility] TO COMPLETE THE MED REC THE FOLLOWING MEDICATIONS HAVE BEEN FILLED AND SHOW ON THE EXT MED HISTORY HOWEVER THE PT IS NOT CURRENTLY TAKING: PANTOPRAZOLE 40MG FILLED ON 02-21-2020 #60/30DS ISOSORBIDE ER MONO 30MG FILLED ON 12-31-2019 #90/90DS LEVOTHYROXINE 25MCG FILLED 11-30-2019 #30/30DS ASPIRIN 81MG- OTC MED BUT PT WAS TOLD TO HOLD WHEN HE WAS DISCHARGED FROM A [facility] THE FOLLOWING MEDICATIONS WERE ADDED TO THE MED REC DUE TO PT TAKING BUT WERE NOT INCLUDED ON THE MED REC WHEN MEDS WERE ORDERED: DULOXETINE 60MG GABAPENTIN 100MG BUSPAR: 5MG WAS CONTINUED HOWEVER PT IS NOW TAKING 15MG DAILY METOPROLOL SUCC: 100MG WAS CONTINUED BUT PT IS NOW ON 50MG HS
[2020-02-23 12:28] VITALS: BP 147/73
[2020-02-23 12:50] VITALS: BP 146/69
--- NOTE | 2020-02-23 13:57 | Consultation-Cardiology ---
HPI-Cardiology Cardiology Consultation: Date of Consultation 02/23/20 Date of Admission Attending Physician Bianca Combs DO Admitting Physician [place] Consulting Physician Rickie BUSTAMANTE MD HPI: Time Seen by a Provider: 12:15 Chief Complaint: Near syncope This is a 74-year-old gentleman who was recently discharged from [facility]. He presented with an episode of near syncope. He got very dizzy. He was found to have a hemoglobin of 7. He has history of bleeding ulcers in the stomach. Surgery has been consult it. He denies any other cardiac complaints. He is a nonsmoker. Pertinent family history is negative. Review of Systems-Cardiology Review of Systems Constitutional: As described under HPI; No As described under HPI, No no symptoms reported, No chills, No fever, No lightheadedness Eyes: No As described under HPI, No no symptoms reported, No blindness, No b lurred vision, No contact lenses, No drainage, No decreased acuity, No foreign body sensation, No pain, No vision change Ears/Nose/Throat: No As described under HPI, No no symptoms reported, No chronic hearing loss, No ear discharge, No ear pain, No nasal drainage, No ulcerations Respiratory: No no symptoms reported; As described under HPI; No As described under HPI, No cough, No orthopnea, No shortness of breath, No SOB with excertion Cardiovascular: No no symptoms reported; As described under HPI; No As described under HPI, No chest pain, No edema, No irregular heart rate, No lightheadedness, No palpitations; syncope Gastrointestinal: No no symptoms reported, No As described under HPI, No abdomen distended, No abdominal pain, No blood streaked bowels, No constipation, No diarrhea, No nausea, No vomiting, No stool coloration changes Genitourinary: No As described under HPI, No burning, No dysuria, No discharge, No frequency, No flank pain, No hematuria, No urgency Skin: No rash, No skin related problems, No ulcerations Psychiatric/Neurological: No anxiety, No depression, No seizure, No focal weakness, No syncope Hematologic: No bleeding abnormalities All Other Systems Reviewed Negative Unless Noted: Yes ZZS-Mymxkg-Mbayhv Hx Patient Social History Marrital Status: Alcohol Use: Denies Use Recreational Drug Use: No Smoking Status: Former Smoker Former smoker/When Quit: Apr 28, 1993 Type Used: Cigarettes 2nd Hand Smoke Exposure: No Recent Foreign Travel: No Recent Infectious Disease Expo: No Physical Abuse Screen: No Sexual Abuse: No Immunizations Up To Date Tetanus Booster (TDap): Unknown Date of Pneumonia Vaccine: Nov 25, 2016 Date of Influenza Vaccine: Jan 12, 2019 Past Medical History PMH As described under Assessment. Family Medical History Family Medical History: He reports his mother had CAD and an ID. Family History: Cardiovascular disease 19 MOTHER Myocardial infarction 19 MOTHER, Onset:62 G8 SISTER Allergies and Home Medications Allergies Coded Allergies: morphine (Verified Allergy, Severe, HIVES, N/V,pt has rec. Lortab in the past w/o issue, 05/21/19) Home Medications Albuterol Sulfate 18 Gm Hfa.aer.ad, 2 PUFF INH Q6H PRN for SHORTNESS OF BREATH, (Reported) Allopurinol 300 Mg Tablet, 150 MG PO DAILY, (Reported) TAKES 1/2 (300MG) TABLET Amitriptyline HCl 100 Mg Tablet, 100 MG PO HS, (Reported) Amlodipine Besylate 10 Mg Tablet, 10 MG PO DAILY, (Reported) Atorvastatin Calcium 40 Mg Tablet, 40 MG PO HS, (Reported) Buspirone HCl 15 Mg Tablet, 15 MG PO DAILY, (Reported) Cetirizine HCl 10 Mg Tablet, 10 MG PO DAILY, (Reported) Dexlansoprazole 60 Mg Cap.dr.bp, 60 MG PO DAILY, (Reported) Duloxetine HCl 60 Mg Capsule.dr, 60 MG PO DAILY, (Reported) Famotidine 40 Mg Tablet, 40 MG PO DAILY, (Reported) Fluticasone Propionate 9.9 Ml [place].susp, 1 SPRAY NS BID PRN for ALLERGIES, (Reported) Fluticasone/Umeclidin/Vilanter 1 Each Blst.w.dev, 1 PUFF INH DAILY, (Reported) Gabapentin 100 Mg Capsule, 100 MG PO HS, (Reported) Hydrochlorothiazide 25 Mg Tablet, 25 MG PO DAILY, (Reported) Hydrocodone/Acetaminophen 1 Each Tablet, 1 EA PO Q6H PRN for PAIN-MODERATE (5- 7), (Reported) Lisinopril 40 Mg Tablet, 40 MG PO DAILY, (Reported) Metoprolol Succinate 50 Mg Tab.er.24h, 50 MG PO HS, (Reported) Montelukast Sodium 10 Mg Tablet, 10 MG PO HS, (Reported) Naproxen 500 Mg Tablet, 500 MG PO Q12H, (Reported) Ondansetron HCl 8 Mg Tablet, 8 MG PO Q8H PRN for NAUSEA/VOMITING-1ST LINE, (Reported) Tamsulosin HCl 0.4 Mg Cap, 0.4 MG PO DAILY, (Reported) Tizanidine HCl 4 Mg Tablet, 4 MG PO TID PRN for MUSCLE CRAMPS, (Reported) Patient Home Medication List Home Medication List Reviewed: Yes Physical Exam-Cardiology Physical Exam Vital Signs/I&O 02/23/20 02/23/20 02/23/20 02/23/20 04:00 04:00 07:21 07:32 Temp 36.8 36.6 Pulse 91 93 98 Resp 18 20 B/P (MAP) 114/54 148/81 Pulse Ox 95 96 98 O2 Delivery Room Air Room Air Room Air 02/23/20 02/23/20 02/23/20 02/23/20 08:00 09:00 09:33 11:51 Temp 36.6 Pulse 87 Resp 20 B/P (MAP) 158/82 Pulse Ox 95 97 O2 Delivery Room Air Room Air Nasal Cannula Room Air O2 Flow Rate 2.00 02/23/20 02/23/20 12:28 12:50 Temp 36.6 37.0 Pulse 83 86 Resp 20 19 B/P (MAP) 147/73 146/69 Pulse Ox 96 97 O2 Delivery Room Air 02/23/20 00:00 Intake Total 2475 ml Output Total 300 ml Balance 2175 ml Capillary Refill : Less Than 3 Seconds Constitutional: appears stated age, AAO x 3; No apparent distress; well- developed, well-nourished HEENT: PERRL; No discharge; hearing is well preserved, oral hygience is good; No ulceration, No xanthelasmas are seen Neck: No carotid bruit; carotid pulses are 2 + bilaterally Respiratory: chest is bilaterally symmetric, lungs clear to auscultation Cardiovascular: regular rate-rhythm, S1 and S2 Gastrointestinal: soft, audible bowel sounds; No spleenomegaly Rectal: deferred Extremities: normal range of motion, non-tender, normal inspection; No clubbing, No cyanosis; no lower extremity edema bilateral; No significant edema Neurologic/Psychiatric: no motor/sensory deficits, alert, normal mood/affect, oriented x 3, power is 5/5 both on sides Skin: normal color; No rash, No ulcerations Lymphatic: no adenopathy (neck, axilla or groin) Data Review Labs Laboratory Tests 02/23/20 03:37: White Blood Count 5.5, Red Blood Count 3.53L, Hemoglobin 7.5L, Hematocrit 25L, Mean Corpuscular Volume 72L, Mean Corpuscular Hemoglobin 21L, Mean Corpuscular Hemoglobin Concent 30L, Red Cell Distribution Width 16.8H, Platelet Count 310, Mean Platelet Volume 9.5, Immature Granulocyte % (Auto) 1, Neutrophils (%) (Auto) 50, Lymphocytes (%) (Auto) 31, Monocytes (%) (Auto) 14H, Eosinophils (%) (Auto) 5, Basophils (%) (Auto) 1, Neutrophils # (Auto) 2.7, Lymphocytes # (Auto) 1.7, Monocytes # (Auto) 0.7, Eosinophils # (Auto) 0.3, Basophils # (Auto) 0.0, Immature Granulocyte # (Auto) 0.1, Sodium Level 136, Potassium Level 4.0, Chloride Level 106, Carbon Dioxide Level 21, Anion Gap 9, Blood Urea Nitrogen 11, Creatinine 0.98, Estimat Glomerular Filtration Rate > 60, BUN/Creatinine Ratio 11, Glucose Level 111H, Calcium Level 8.0L, Corrected Calcium 8.5, Total Bilirubin 0.3, Aspartate Amino Transf (AST/SGOT) 19, Alanine Aminotransferase (ALT/SGPT) 13, Alkaline Phosphatase 70, Total Protein 5.3L, Albumin 3.4 ECG Impression ECG Initial ECG Rhythm: S.Tach A/P-Cardiology Assessment/Admission Diagnosis Syncope, Orthostatic hypotension, GI bleeding, Severe anemia Plan Agree with Transfusion, Surgical consultation for possible GI bleeding and bleeding ulcers. Continue IV fluids. Echocardiogram Thank you for your consultation. Please call me if you have any questions. Oseas Bustamante MD, FACP, FACC, FSCAI, FHRS, CCDS Interventional Cardiology Cardiac Electrophysiology Vascular Medicine and Endovascular Interventions Clinical Quality Measures DVT/VTE Risk/Contraindication: Risk Factor Score Per Nursin RFS Level Per Nursing on Admit: 4+=Very High Contraindications-Pharm: Other *list below* Other: Rickie Jensen MD Feb 23, 2020 13:57
[2020-02-23] MEDS ORDERED: FUROSEMIDE 40 MG/4 ML INJ (LASIX) ONE (15:03)
--- NOTE | 2020-02-23 15:03 | NUR ---
RD ASSESSMENT PMHx: COPD; PE; hypercholesterolemia; HTN; BPH; GERD; obstructive bowel; hiatal hernia; MD; CA(prostate); PT INTERACTION: Pt was awake and pleasant during nutrition assessment. Pt states current appetite is "none." Note avg PO intake 67% x1meal, per chart review. Pt states following a regular diet at home, and has no issues with chewing/swallowing food. Pt states some recent issues with nausea, vomiting, constipation, and diarrhea, and that his last BM was 02/22. Note pt currently on bowel regimen of senna BID, per chart review. Pt states recent 10-11# wt loss x2w. Note recent 18# wt loss x3mon, per chart review. This is significant wt loss at 8.9%. Pt states current DM management "seems okay." Note unable to determine recent HbA1c, per chart review. ABNORMAL NUTRITION-RELATED LAB VALUES LOW: Ca 8.0; Pro 5.3; HIGH: glu 111; Est. kcal needs: 4204-0703 kcal | 20-25 kcal/kg Est. Pro needs: 68-86 g Pro | 0.8-1.0 g Pro/kg PES STATEMENT: Inadequate oral intake (NI-2.1) related to loss of appetite, nausea, vomiting, constipation, and diarrhea, as evidenced by pt interview and avg PO intake of 66% x3meal. INTERVENTION: Continue with current diet order of Regular diet. Would recommend switching to consistent CHO diet if blood glucose levels become elevated. Pt may benefit from nutrition supplementation if PO intake declines. Did not offer diet education at this time. Will offer diet education and provide handout prior to discharge. Encouraged pt to eat when able. Will continue to follow and reassess as pt needs, intake, and status change. Nia Barragan, MS RD LD
[2020-02-23 15:47] VITALS: BP 166/80
[2020-02-23] MEDS: DULoxetine 30 MG (CYMBALTA) CAP PO SCH (16:37)
[2020-02-23 16:38] VITALS: BP_SYST 166; BP_SYST 179; BP_DIAS 80; BP_DIAS 85
[2020-02-23 16:54] VITALS: BP 187/91
[2020-02-23 19:13] VITALS: BP 158/73
[2020-02-23] MEDS ORDERED: GABAPENTIN 100 MG (NEURONTIN) CAP PO SCH (21:00)
[2020-02-23] MEDS: MONTELUKAST 10 MG (SINGULAIR) TAB PO SCH (21:04)
[2020-02-23] MEDS: AMITRIPTYLINE 50 MG (ELAVIL) TAB PO SCH (21:04)
[2020-02-23] MEDS: ADVAIR HFA 115/21 MCG INHALER 8 GM IH SCH (23:15)
[2020-02-24] MEDS: HYDROcodone/APAP 5 MG/325 MG (LORTAB) TAB PO PRN ×2 (04:32→08:57)
[2020-02-24 07:07] LABS: BASOPHILS # (AUTO) 0.1 10^3/uL (0.0-0.1); BASOPHILS % (AUTO) 1 % (0-10); EOSINOPHILS # (AUTO) 0.3 10^3/uL (0.0-0.3); EOSINOPHILS % (AUTO) 4 % (0-10); HEMATOCRIT 37 % (40-54); HEMOGLOBIN 11.6 g/dL (13.3-17.7); LYMPHOCYTES # (AUTO) 1.4 10^3/uL (1.0-4.0); LYMPHOCYTES % (AUTO) 23 % (12-44); MEAN CORPUSCULAR HEMOGLOBIN 23 pg (25-34); MEAN CORPUSCULAR HGB CONC 32 g/dL (32-36); MEAN CORPUSCULAR VOLUME 74 fL (80-99); MEAN PLATELET VOLUME 9.4 fL (9.0-12.2); MONOCYTES # (AUTO) 0.7 10^3/uL (0.0-1.0); MONOCYTES % (AUTO) 12 % (0-12); NEUTROPHILS # (AUTO) 3.5 10^3/uL (1.8-7.8); NEUTROPHILS % (AUTO) 58 % (42-75); PLATELET COUNT 327 10^3/uL (130-400); WHITE BLOOD COUNT 6.1 10^3/uL (4.3-11.0)
[2020-02-24 07:19] LABS: ALBUMIN 3.9 GM/DL (3.2-4.5); CHLORIDE 101 MMOL/L (98-107); POTASSIUM 3.8 MMOL/L (3.6-5.0); SODIUM 136 MMOL/L (135-145)
[2020-02-24 07:21] LABS: CALCIUM 8.8 MG/DL (8.5-10.1); GLUCOSE 90 MG/DL (70-105)
[2020-02-24 07:22] LABS: TOTAL PROTEIN 6.2 GM/DL (6.4-8.2)
[2020-02-24 07:23] LABS: CARBON DIOXIDE 25 MMOL/L (21-32)
[2020-02-24 07:24] LABS: BILIRUBIN,TOTAL 0.6 MG/DL (0.1-1.0)
[2020-02-24 07:25] LABS: ALKALINE PHOSPHATASE 84 U/L (40-136); CREATININE SERUM 1.12 MG/DL (0.60-1.30); GFR ESTIMATED > 60
[2020-02-24 07:26] LABS: BUN/CREATININE RATIO 10
[2020-02-24 07:28] LABS: ALANINE AMINOTRANSFERASE 10 U/L (0-55)
--- NOTE | 2020-02-24 08:14 | Progress Note - Surgery ---
SHIRA YEUNG MED STUDENT 02/24/20 0814: Subjective Date Seen by a Provider: Feb 24, 2020 Time Seen by a Provider: 07:15 Subjective/Events-last exam Pt states he's doing better. Pt denies having episodes of dizziness or syncope since being admitted. Pt was given 2 units of blood products yesterday. Pt had echo heart test yesterday. Pt had 2x BM yesterday and denies blood in stool. Pt states he has difficulty w/ urination but has had complications since prostate cancer dx. Pt has walked back and forth to bathroom w/o issues. Pt is eating johnny d well and denies N/V. When I spoke w/ pt last night, pt states he had his last EGD at [place] a couple of weeks ago but doesn't know when or where his last colonoscopy was. Pt believes it was 7-10 yrs ago. Pt states last EGD showed bleeding in stomach and has had bloody BM in the past. Pt adamantly declined having another colonoscopy. He states he's had 5 previously and already knows he has colon cancer. He states he saw his go through cancer tx and didn't want to go that route. He follows Dr. Julius Garcia (sp?) for his anemia at [facility]. Pt has received blood products in the past. I spoke w/ nurse to obtain records for EGD, colo noscopies, and anemia. Records have not been transferred yet as of 7AM today. Review of Systems General: No Chills, No Night Sweats HEENT: Head Aches; No Visual Changes, No Eye Pain, No Ear Pain Pulmonary: No Cough Cardiovascular: No: Chest Pain Gastrointestinal: No: Nausea, Vomiting, Abdominal Pain Musculoskeletal: leg pain (knee pain from knee replacements) Objective Exam Vital Signs Date Time Temp Pulse Resp B/P (MAP) Pulse Ox O2 Delivery O2 Flow Rate FiO2 02/24/20 05:00 36.4 75 18 130/61 96 Room Air 02/24/20 00:14 36.4 81 20 139/71 98 Room Air 02/23/20 21:04 Room Air 02/23/20 19:32 36.6 88 20 158/78 98 Room Air 02/23/20 19:13 37.2 84 18 158/73 96 Room Air 02/23/20 16:54 37.1 84 18 187/91 98 Room Air 02/23/20 16:38 37.2 84 18 179/85 100 Room Air 02/23/20 15:47 36.6 85 18 166/80 98 Room Air 02/23/20 15:30 36.6 85 18 166/80 98 Room Air 02/23/20 12:50 37.0 86 19 146/69 97 02/23/20 12:28 36.6 83 20 147/73 96 Room Air 02/23/20 11:51 36.6 87 20 158/82 97 Room Air 02/23/20 09:33 Nasal Cannula 2.00 02/23/20 09:00 Room Air I & O 02/24/20 07:00 Intake Total 4155 ml Balance 4155 ml Capillary Refill : Less Than 3 Seconds General Appearance: No Apparent Distress, Chronically ill HEENT: PERRL/EOMI Neck: Non Tender, Supple Respiratory: Chest Non Tender, Lungs Clear, Normal Breath Sounds, No Accessory Muscle Use, No Respiratory Distress Cardiovascular: Normal Peripheral Pulses, Other (regular rate, irregular rhythm ) Gastrointestinal: non tender, soft Extremity: Non Tender, No Calf Tenderness, No Pedal Edema Neurologic/Psychiatric: Alert, Oriented x3, Normal Mood/Affect Skin: Normal Color, Warm/Dry Results Lab Laboratory Tests 02/24/20 06:27: White Blood Count 6.1, Red Blood Count 4.96, Hemoglobin 11.6#L, Hematocrit 37L, Mean Corpuscular Volume 74L, Mean Corpuscular Hemoglobin 23L, Mean Corpuscular Hemoglobin Concent 32, Red Cell Distribution Width 18.2H, Platelet Count 327, M chau Platelet Volume 9.4, Immature Granulocyte % (Auto) 1, Neutrophils (%) (Auto) 58, Lymphocytes (%) (Auto) 23, Monocytes (%) (Auto) 12, Eosinophils (%) (Auto) 4, Basophils (%) (Auto) 1, Neutrophils # (Auto) 3.5, Lymphocytes # (Auto) 1.4, Monocytes # (Auto) 0.7, Eosinophils # (Auto) 0.3, Basophils # (Auto) 0.1, Immature Granulocyte # (Auto) 0.1, Sodium Level 136, Potassium Level 3.8, Chloride Level 101, Carbon Dioxide Level 25, Anion Gap 10, Blood Urea Nitrogen 11, Creatinine 1.12, Estimat Glomerular Filtration Rate > 60, BUN/Creatinine Ratio 10, Glucose Level 90, Calcium Level 8.8, Corrected Calcium 8.9, Total Bilirubin 0.6, Aspartate Amino Transf (AST/SGOT) 22, Alanine Aminotransferase (ALT/SGPT) 10, Alkaline Phosphatase 84, Total Protein 6.2L, Albumin 3.9 Assessment/Plan Assessment/Plan Assessment/Plan PSBO - resolved anemia - given 2 units of blood yesterday. will try to obtain EGD, colonoscopy, and anemia records today. observe for further sx or changes. continue diet. syncope - Pt denies syncope sx today and yesterday. monitor for sx. Clinical Quality Measures DVT/VTE Risk/Contraindication: Risk Factor Score Per Nursin RFS Level Per Nursing on Admit: 4+=Very High Contraindications-Pharm: Other *list below* Other: XIN Nath DO 02/24/20 1011: Subjective Time Seen by a Provider: 09:54 Subjective/Events-last exam Pt seen and examined, no complaints. States he feels a little stronger. Review of Systems General: No Chills, No Night Sweats Pulmonary: No Cough Cardiovascular: No: Chest Pain Gastrointestinal: No: Nausea, Vomiting, Abdominal Pain Objective Exam General Appearance: No Apparent Distress, WD/WN HEENT: PERRL/EOMI Respiratory: Chest Non Tender, Lungs Clear, Normal Breath Sounds, No Accessory Muscle Use, No Respiratory Distress Cardiovascular: No Murmur, Other (regular rate, irregular rhythm ) Gastrointestinal: non tender, soft Assessment/Plan Assessment/Plan Assessment/Plan PSBO Anemia Syncope I would recommend anemia work-up as an outpt. Pt ok to be discharged from surgical standpoint. Supervisory-Addendum Brief Verification & Attestation Participated in pt care: history, MDM, physical Personally performed: exam, history, MDM Care discussed with: Medical Student Procedures: n/a Verification and Attestation of Medical Student E/M Service A medical student performed and documented this service. I then reviewed and verified all information documented by the medical student and made modifications to such information, when appropriate. I personally performed a physical exam, medical decision making and then discussed any differences between the notes and made revisions as necessary to create one note. Xin Zacarias , 02/24/20 , 10:11 SHIRA YEUNG MED STUDENT Feb 24, 2020 08:14 XIN ZACARIAS DO Feb 24, 2020 10:11
[2020-02-24] MEDS: ADVAIR HFA 115/21 MCG INHALER 8 GM IH SCH ×2 (08:48→08:49)
[2020-02-24] MEDS: FAMOTIDINE 20 MG (PEPCID) TABLET PO SCH (08:50)
[2020-02-24] MEDS: HYDROCHLOROTHIAZIDE 25 MG (HCTZ) TAB PO SCH (08:50)
[2020-02-24] MEDS: PANTOPRAZOLE 40 MG (PROTONIX) TAB PO SCH (08:50)
[2020-02-24] MEDS: SENNA W/DOCUSATE (SENOKOT S) TABLET PO SCH (08:50)
[2020-02-24] MEDS: amLODIPine 10 MG (NORVASC) TAB PO SCH (08:50)
[2020-02-24] MEDS: DULoxetine 30 MG (CYMBALTA) CAP PO SCH (08:50)
[2020-02-24] MEDS: TAMSULOSIN 0.4 MG (FLOMAX) CAP PO SCH (08:50)
[2020-02-24] MEDS: ALLOPURINOL 300 MG (ZYLOPRIM) TAB PO SCH (08:51)
[2020-02-24] MEDS: lisINopril 40 MG (PRINIVIL) TABLET PO SCH (08:51)
[2020-02-24] MEDS: LORATADINE (CLARITIN) 10 MG TAB PO SCH (08:51)
[2020-02-24] MEDS ORDERED: busPIRone 15 MG (BUSPAR) TABLET PO SCH (09:00)
[2020-02-24] MEDS ORDERED: SUCR1TAB36 PO (11:17)
--- NOTE | 2020-02-24 11:19 | Discharge Summary ---
Discharge Summary Hospital Course Was the Problem List Reviewed?: Yes Problems/Dx: (1) Chronic hypertension (2) Orthostatic hypotension (3) Bleeding stomach ulcer (4) Anemia (5) Bilateral knee pain (6) Syncope due to orthostatic hypotension Status: Acute (7) COPD (chronic obstructive pulmonary disease) Hospital Course Date of Admission: Feb 23, 2020 at 10:00 Admission Diagnosis : Family Physician/Provider: Julius Will Date of Discharge: 02/24/20 Discharge Diagnosis: syncope, orthostasis, severe anemia requiring transfusion, chronic GIB Hospital Course: Hospital Course: Pt had an uneventful hospital course. He was admitted for syncopal episode with tachycardia and hypotension. Pt was given IV fluids aggressively and Hemoccult stools were positive. He ultimately required two units of blood that returned the Hgb back to 11.0. Pt had no evidence of any syncopal episodes, tachycardia, or hypotension, he was deemed stable for DC with close follow up at [facility] as arranged for chronic GI bleeding maintained on proton pump inhibitor. I did add Carafate to neutralize any stomach acid in the mean time to help heal any type of gastritis from causing the blood loss and he was deemed stable for DC. Labs and Pending Lab Test: Laboratory Tests 02/24/20 06:27: White Blood Count 6.1, Red Blood Count 4.96, Hemoglobin 11.6#L, Hematocrit 37L, Mean Corpuscular Volume 74L, Mean Corpuscular Hemoglobin 23L, Mean Corpuscular Hemoglobin Concent 32, Red Cell Distribution Width 18.2H, Platelet Count 327, Mean Platelet Volume 9.4, Immature Granulocyte % (Auto) 1, Neutrophils (%) (Auto) 58, Lymphocytes (%) (Auto) 23, Monocytes (%) (Auto) 12, Eosinophils (%) (Auto) 4, Basophils (%) (Auto) 1, Neutrophils # (Auto) 3.5, Lymphocytes # (Auto) 1.4, Monocytes # (Auto) 0.7, Eosinophils # (Auto) 0.3, Basophils # (Auto) 0.1, Immature Granulocyte # (Auto) 0.1, Sodium Level 136, Potassium Level 3.8, Chloride Level 101, Carbon Dioxide Level 25, Anion Gap 10, Blood Urea Nitrogen 11, Creatinine 1.12, Estimat Glomerular Filtration Rate > 60, BUN/Creatinine Ratio 10, Glucose Level 90, Calcium Level 8.8, Corrected Calcium 8.9, Total Bilirubin 0.6, Aspartate Amino Transf (AST/SGOT) 22, Alanine Aminotransferase (ALT/SGPT) 10, Alkaline Phosphatase 84, Total Protein 6.2L, Albumin 3.9 Home Meds Active Carafate (Sucralfate) 1 Gm Tablet 1 Gm PO ACHS Reported Tizanidine HCl 4 Mg Tablet 4 Mg PO TID PRN Gabapentin 100 Mg Capsule 100 Mg PO HS Metoprolol Succinate 50 Mg Tab.er.24h 50 Mg PO HS Duloxetine HCl 60 Mg Capsule.dr 60 Mg PO DAILY Hydrocodone-Acetamin 5-325 mg (Hydrocodone/Acetaminophen) 1 Each Tablet 1 Ea PO Q6H PRN Buspirone HCl 15 Mg Tablet 15 Mg PO DAILY Amlodipine Besylate 10 Mg Tablet 10 Mg PO DAILY Famotidine 40 Mg Tablet 40 Mg PO DAILY Hydrochlorothiazide 25 Mg Tablet 25 Mg PO DAILY Ondansetron HCl 8 Mg Tablet 8 Mg PO Q8H PRN Trelegy Ellipta 100-62.5-25 (Fluticasone/Umeclidin/Vilanter) 1 Each Blst.w.dev 1 Puff INH DAILY Naproxen 500 Mg Tablet 500 Mg PO Q12H Flonase Allergy Relief (Fluticasone Propionate) 9.9 Ml Wol[place].susp 1 [place] NS BID PRN Ventolin Hfa (Albuterol Sulfate) 18 Gm Hfa.aer.ad 2 Puff INH Q6H PRN Flomax (Tamsulosin HCl) 0.4 Mg Cap 0.4 Mg PO DAILY Lisinopril 40 Mg Tablet 40 Mg PO DAILY Amitriptyline HCl 100 Mg Tablet 100 Mg PO HS Dexilant (Dexlansoprazole) 60 Mg Cap.dr.bp 60 Mg PO DAILY Montelukast Sodium 10 Mg Tablet 10 Mg PO HS Atorvastatin Calcium 40 Mg Tablet 40 Mg PO HS Allopurinol 300 Mg Tablet 150 Mg PO DAILY TAKES 1/2 (300MG) TABLET Cetirizine HCl 10 Mg Tablet 10 Mg PO DAILY Assessment/Pt Instructions [facility] 1 week Discharge Planning: <30 minutes discharge planning Discharge Physical Examination Vital Signs Vital Signs Date Time Temp Pulse Resp B/P (MAP) Pulse Ox O2 Delivery O2 Flow Rate FiO2 02/24/20 09:00 Room Air 02/24/20 08:00 36.4 76 20 153/86 99 02/23/20 09:33 2.00 General Appearance: No Apparent Distress, WD/WN, Chronically ill Respiratory: Lungs Clear Cardiovascular: Regular Rate, Rhythm Neurologic/Psychiatric: Alert, Oriented x3, No Motor/Sensory Deficits, Normal Mood/Affect Allergies: Coded Allergies: morphine (Verified Allergy, Severe, HIVES, N/V,pt has rec. Lortab in the past w/o issue, 05/21/19) Discharge Summary Date of Admission Feb 23, 2020 at 10:00 Date of Discharge Discharge Date: Feb 24, 2020 Admission Diagnosis Assessment: Orthostasis from GIB and severe anemia with tachycardia and syncope Discharge Diagnosis (1) Chronic hypertension (2) Orthostatic hypotension (3) Bleeding stomach ulcer (4) Anemia (5) Bilateral knee pain (6) Syncope due to orthostatic hypotension Status: Acute (7) COPD (chronic obstructive pulmonary disease) Clinical Quality Measures DVT/VTE Risk/Contraindication: Risk Factor Score Per Nursin RFS Level Per Nursing on Admit: 4+=Very High Contraindications-Pharm: Other *list below* Other: CARLOS Galindo DO Feb 24, 2020 11:19
[2020-02-24 12:10] VITALS: BP 153/86
--- NOTE | 2020-02-24 12:18 | Progress Note ---
ISABELA NGO MED STUDENT 02/24/20 1218: Progress Note Mr Perry was admitted to the hospital after a syncopal episode he experienced at a store following a recent discharge from [facility]. He has just been released after resolution of a SBO and passed out later that day. He was taken to the ER where he was found to have a low hgb in the mid 9,s. He also had orthostatic hypotension, down to 85 when standing. He stayed overnight and the next morning had a drop in HGB to 7.5. He has a known active stomach bleed at this time that is being managed by [facility]. Due to his low HGB, cardiac history, and active bleed, he was given 2 units of blood. His HGB improved to over 11 the next day and paleness diminished. He has not had a syncopal episode and was discharged on the with followup appointments for his GI bleed and [employer]. Supervisory-Addendum Brief Verification & Attestation Participated in pt care: history, physical Personally performed: exam, history Care discussed with: other Procedures: n/a BIANCA NUNN DO 02/25/20 0555: Supervisory-Addendum Brief Verification & Attestation Participated in pt care: history, MDM, physical Personally performed: exam, history, MDM, supervision of care Care discussed with: Medical Student Procedures: n/a Results interpretation: Verified all documentation Verification and Attestation of Medical Student E/M Service A medical student performed and documented this service in my presence. I reviewed and verified all information documented by the medical student and made modifications to such information, when appropriate. I personally performed the physical exam and medical decision making. Bianca Nunn, Feb 25, 2020,05:55 ISABELA NGO MED STUDENT Feb 24, 2020 12:18 BIANCA NUNN DO Feb 25, 2020 05:55
--- NOTE | 2020-02-24 17:21 | Cardiology Progress Note ---
Cardiology SOAP Progress Note Objective: I&O/Vital Signs 02/24/20 02/24/20 02/24/20 08:00 09:00 12:10 Temp 36.4 36.4 Pulse 76 76 Resp 20 20 B/P (MAP) 153/86 153/86 Pulse Ox 99 99 O2 Delivery Room Air Room Air Room Air O2 Flow Rate 2.00 02/23/20 23:59 Intake Total 1700 ml Balance 1700 ml Weight (Pounds): 172 Weight (Ounces): 5.0 Weight (Calculated Kilograms): 78.445069 Constitutional: appears stated age, AAO x 3; No apparent distress; well- developed, well-nourished Respiratory: chest is bilaterally symmetric, lungs clear to auscultation Cardiovascular: regular rate-rhythm, S1 and S2 Gastrointestional: soft, audible bowel sounds; No spleenomegaly Extremities: normal range of motion, non-tender, normal inspection; No clubbing, No cyanosis; no lower extremity edema bilateral; No significant edema Neurologic/Psychiatric: no motor/sensory deficits, alert, normal mood/affect, oriented x 3, power is 5/5 both on sides Skin: normal color; No rash, No ulcerations Results/Procedures: Labs Laboratory Tests 02/24/20 06:27: White Blood Count 6.1, Red Blood Count 4.96, Hemoglobin 11.6#L, Hematocrit 37L, Mean Corpuscular Volume 74L, Mean Corpuscular Hemoglobin 23L, Mean Corpuscular Hemoglobin Concent 32, Red Cell Distribution Width 18.2H, Platelet Count 327, Mean Platelet Volume 9.4, Immature Granulocyte % (Auto) 1, Neutrophils (%) (Auto) 58, Lymphocytes (%) (Auto) 23, Monocytes (%) (Auto) 12, Eosinophils (%) (Auto) 4, Basophils (%) (Auto) 1, Neutrophils # (Auto) 3.5, Lymphocytes # (Auto) 1.4, Monocytes # (Auto) 0.7, Eosinophils # (Auto) 0.3, Basophils # (Auto) 0.1, Immature Granulocyte # (Auto) 0.1, Sodium Level 136, Potassium Level 3.8, Chloride Level 101, Carbon Dioxide Level 25, Anion Gap 10, Blood Urea Nitrogen 11, Creatinine 1.12, Estimat Glomerular Filtration Rate > 60, BUN/Creatinine Ratio 10, Glucose Level 90, Calcium Level 8.8, Corrected Calcium 8.9, Total Bilirubin 0.6, Aspartate Amino Transf (AST/SGOT) 22, Alanine Aminotransferase (ALT/SGPT) 10, Alkaline Phosphatase 84, Total Protein 6.2L, Albumin 3.9 02/24/20 13:47: Lab Scanned Report Transfusion Reaction Form A/P: Assessment/Dx: Syncope, Orthostatic hypotension, GI bleeding, Severe anemia Plan: Agree with Transfusion, Surgical consultation for possible GI bleeding and bleeding ulcers. Continue IV fluids. Echocardiogram Thank you for your consultation. Please call me if you have any questions. Oseas Bustamante MD, FACP, FACC, FSCAI, FHRS, CCDS Interventional Cardiology Cardiac Electrophysiology Vascular Medicine and Endovascular Interventions Rickie BUSTAMANTE MD Feb 24, 2020 17:21
[2020-02-24] MEDS ORDERED: meTOproloL SUCCINATE 50 MG (TOPROL XL) TAB PO SCH (21:00)
== END 2020-02-24 12:10 | disposition home or self-care (01) | DRG 811 ==
LOC: EDUNIT# 12:21 → ER FS 12:22 → CSD 14:58 → OBSVTOIN 02-23 10:00 → 4TH 02-23 10:01
PROVIDERS: ADMIT Internal Medicine; ATTEND Internal Medicine
DX: D50.0 Iron deficiency anemia secondary to blood loss (chronic) (principal); K25.4 Chronic or unspecified gastric ulcer with hemorrhage; I95.1 Orthostatic hypotension; R00.0 Tachycardia, unspecified; J43.9 Emphysema, unspecified; I25.10 Atherosclerotic heart disease of native coronary artery without angina pectoris; I10 Essential (primary) hypertension; E11.9 Type 2 diabetes mellitus without complications; K44.9 Diaphragmatic hernia without obstruction or gangrene; G47.30 Sleep apnea, unspecified; I34.1 Nonrheumatic mitral (valve) prolapse; E78.00 Pure hypercholesterolemia, unspecified; K21.9 Gastro-esophageal reflux disease without esophagitis; N40.0 Benign prostatic hyperplasia without lower urinary tract symptoms; F41.9 Anxiety disorder, unspecified; M25.562 Pain in left knee; M25.561 Pain in right knee; M19.91 Primary osteoarthritis, unspecified site; M54.9 Dorsalgia, unspecified; F32.9 Major depressive disorder, single episode, unspecified; M10.9 Gout, unspecified; Z87.19 Personal history of other diseases of the digestive system; Z87.891 Personal history of nicotine dependence; Z92.3 Personal history of irradiation; Z85.46 Personal history of malignant neoplasm of prostate; Z86.711 Personal history of pulmonary embolism; Z96.653 Presence of artificial knee joint, bilateral; Z96.642 Presence of left artificial hip joint; Z96.698 Presence of other orthopedic joint implants; Z87.820 Personal history of traumatic brain injury; Z23 Encounter for immunization; Z79.84 Long term (current) use of oral hypoglycemic drugs
CPT/HCPCS: 36415; 70450; 71045; 80053; 80306; 81000; 83540; 83880; 84484; 85025; 85610; 86850; 86900; 86901; 86920; 90662; 93005; 93306

== ENCOUNTER 2020-05-11 22:38 | Emergency (ER) | payer MEDICARE, MEDICAID ==
[~2020-05-11] VITALS: Ht 175 cm; Wt 95.2 kg
[~2020-05-11 22:38] MED LIST changes: +DULO60CA59 PO; -ESCI10TA55; +ESCI10TA64; +GABA-486 PO; +METO50TA7 PO; -MONT10TA26 PO; +MONT10TA97 PO; +SUCR1TAB36 PO; +TIZA-169; -TIZA2TAB7; +TIZA4TAB4 PO
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
[2020-05-11 22:56] LABS: BASOPHILS # (AUTO) 0.1 10^3/uL (0.0-0.1); BASOPHILS % (AUTO) 1 % (0-10); EOSINOPHILS # (AUTO) 0.2 10^3/uL (0.0-0.3); EOSINOPHILS % (AUTO) 2 % (0-10); HEMATOCRIT 36 % (40-54); HEMOGLOBIN 12.4 g/dL (13.3-17.7); LYMPHOCYTES # (AUTO) 1.4 10^3/uL (1.0-4.0); LYMPHOCYTES % (AUTO) 14 % (12-44); MEAN CORPUSCULAR HEMOGLOBIN 27 pg (25-34); MEAN CORPUSCULAR HGB CONC 34 g/dL (32-36); MEAN CORPUSCULAR VOLUME 80 fL (80-99); MEAN PLATELET VOLUME 9.3 fL (9.0-12.2); MONOCYTES # (AUTO) 0.8 10^3/uL (0.0-1.0); MONOCYTES % (AUTO) 8 % (0-12); NEUTROPHILS # (AUTO) 7.6 10^3/uL (1.8-7.8); NEUTROPHILS % (AUTO) 75 % (42-75); PLATELET COUNT 255 10^3/uL (130-400); WHITE BLOOD COUNT 10.1 10^3/uL (4.3-11.0)
[2020-05-11] MEDS ORDERED: LACTATED RINGERS 1,000 ML IV ONE (23:00)
[2020-05-11] MEDS ORDERED: PANTOPRAZOLE 40 MG (PROTONIX) VIAL IV ONE (23:00)
[2020-05-11] MEDS ORDERED: HYDROmorphone 2 MG/ML VIAL (DILAUDID) IV ONE (23:00)
[2020-05-11 23:04] LABS: ALBUMIN 4.2 GM/DL (3.2-4.5); POTASSIUM 5.1 MMOL/L (3.6-5.0)
[2020-05-11 23:07] LABS: TOTAL PROTEIN 6.9 GM/DL (6.4-8.2)
[2020-05-11 23:09] LABS: BILIRUBIN,TOTAL 0.4 MG/DL (0.1-1.0)
[2020-05-11 23:11] LABS: CREATININE SERUM 1.52 MG/DL (0.60-1.30)
[2020-05-11] MEDS ORDERED: NS IV 1000 ML 1,000 ML IV SCH (23:30)
[2020-05-12] MEDS ORDERED: HYDROmorphone 2 MG/ML VIAL (DILAUDID) IV ONE
[2020-05-12] MEDS ORDERED: NALO25TA PO (02:04)
[2020-05-12 02:15] VITALS: BP 109/66
--- NOTE | 2020-05-12 07:07 | Diagnostic Imaging Report ---
PROCEDURE: CT abdomen and pelvis without contrast. TECHNIQUE: Multiple contiguous axial images were obtained through the abdomen and pelvis without the use of intravenous contrast. Auto Exposure Controls were utilized during the CT exam to meet ALARA standards for radiation dose reduction. INDICATION: Abdominal pain and possible bowel obstruction. Comparison is made to study of 11/25/2018. Unenhanced images of the liver and spleen reveal no focal abnormality. Gallbladder surgically absent. No pancreatic or adrenal gland abnormality is identified. There is a probable dominant cyst in the lower pole of the left kidney. Kidneys are otherwise stable and unremarkable as seen on the noncontrasted images. There is no evidence of free fluid within the abdomen or pelvis. There does appear to be surgical anastomosis of distal small bowel however no significant dilatation is identified. There is artifact from bilateral hip prostheses which limits evaluation of the pelvis. There is moderate amount of colonic stool. Lumbar spinal fusion has a similar appearance when compared to previous study. IMPRESSION: No definite acute abnormality or adverse change is identified. There is moderate colonic stool burden without evidence of small bowel dilatation or obstruction. Dictated by: Dictated on workstation # [id number]
== END 2020-05-12 02:16 | disposition home or self-care (01) ==
LOC: EDUNIT# 22:38 → ER 22:40
DX: K59.00 Constipation, unspecified (principal); E86.0 Dehydration; E87.1 Hypo-osmolality and hyponatremia; I10 Essential (primary) hypertension; I25.10 Atherosclerotic heart disease of native coronary artery without angina pectoris; E78.00 Pure hypercholesterolemia, unspecified; J44.9 Chronic obstructive pulmonary disease, unspecified; G47.30 Sleep apnea, unspecified; N40.0 Benign prostatic hyperplasia without lower urinary tract symptoms; R73.03 Prediabetes; G89.29 Other chronic pain; M54.9 Dorsalgia, unspecified; F41.9 Anxiety disorder, unspecified; F32.9 Major depressive disorder, single episode, unspecified; M10.9 Gout, unspecified; Z87.891 Personal history of nicotine dependence; Z88.5 Allergy status to narcotic agent; Z86.711 Personal history of pulmonary embolism; Z99.89 Dependence on other enabling machines and devices; Z85.46 Personal history of malignant neoplasm of prostate; Z79.51 Long term (current) use of inhaled steroids; Z79.891 Long term (current) use of opiate analgesic; Z79.1 Long term (current) use of non-steroidal anti-inflammatories (NSAID)
CPT/HCPCS: 36415; 74176; 80053; 83690; 85025; 86141

== ENCOUNTER 2020-05-18 06:10 | Emergency (ER) | payer MEDICARE, MEDICAID ==
[~2020-05-18] VITALS: Ht 175 cm; Wt 95.2 kg
[~2020-05-18 06:10] MED LIST changes: +NALO25TA PO
[2020-05-18] MEDS ORDERED: FAMOTIDINE 20MG/2ML IV (PEPCID) IV STA (06:20)
[2020-05-18] MEDS ORDERED: KETOROLAC 30 MG/ML VIAL IVP STA (06:20)
[2020-05-18] MEDS ORDERED: LACTATED RINGERS 1,000 ML IV STA (06:20)
[2020-05-18] MEDS ORDERED: METOCLOPRAMIDE INJ 10 MG/2 ML (REGLAN) IVP STA (06:20)
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
[2020-05-18 06:30] LABS: BASOPHILS # (AUTO) 0.1 10^3/uL (0.0-0.1); BASOPHILS % (AUTO) 1 % (0-10); EOSINOPHILS # (AUTO) 0.2 10^3/uL (0.0-0.3); EOSINOPHILS % (AUTO) 2 % (0-10); HEMATOCRIT 40 % (40-54); HEMOGLOBIN 13.5 g/dL (13.3-17.7); LYMPHOCYTES # (AUTO) 1.2 10^3/uL (1.0-4.0); LYMPHOCYTES % (AUTO) 13 % (12-44); MEAN CORPUSCULAR HEMOGLOBIN 27 pg (25-34); MEAN CORPUSCULAR HGB CONC 34 g/dL (32-36); MEAN CORPUSCULAR VOLUME 81 fL (80-99); MEAN PLATELET VOLUME 8.8 fL (9.0-12.2); MONOCYTES # (AUTO) 0.8 10^3/uL (0.0-1.0); MONOCYTES % (AUTO) 8 % (0-12); NEUTROPHILS # (AUTO) 7.6 10^3/uL (1.8-7.8); NEUTROPHILS % (AUTO) 77 % (42-75); PLATELET COUNT 278 10^3/uL (130-400); WHITE BLOOD COUNT 9.9 10^3/uL (4.3-11.0)
[2020-05-18 06:37] LABS: ALBUMIN 4.2 GM/DL (3.2-4.5); POTASSIUM 4.9 MMOL/L (3.6-5.0)
[2020-05-18 06:39] LABS: CALCIUM 9.1 MG/DL (8.5-10.1)
[2020-05-18 06:40] LABS: TOTAL PROTEIN 6.7 GM/DL (6.4-8.2)
[2020-05-18 06:42] LABS: BILIRUBIN,TOTAL 0.3 MG/DL (0.1-1.0)
[2020-05-18 06:44] LABS: CREATININE SERUM 1.44 MG/DL (0.60-1.30)
[2020-05-18 06:58] LABS: BILIRUBIN,URINE NEGATIVE (NEGATIVE); CLARITY,URINE SL CLOUDY; COLOR,URINE YELLOW; GLUCOSE, URINE (UA) NEGATIVE (NEGATIVE); KETONES,URINE NEGATIVE (NEGATIVE); LEUKOCYTE ESTERASE ,URINE NEGATIVE (NEGATIVE); NITRITE,URINE NEGATIVE (NEGATIVE); PH,URINE 5.5 (5-9); PROTEIN,URINE NEGATIVE (NEGATIVE)
[2020-05-18 07:10] LABS: BACTERIA,URINE NEGATIVE /HPF; RBC,URINE RARE /HPF
[2020-05-18 07:11] LABS: SQUAMOUS EPITHELIAL CELL,UR RARE /HPF
--- NOTE | 2020-05-18 07:12 | Diagnostic Imaging Report ---
INDICATION: Abdominal pain. COMPARISON: CT abdomen pelvis from 05/11/2020. FINDINGS: Lungs are clear. No pleural effusion or pneumothorax. Normal cardiomediastinal silhouette. A loop recorder device is present. No free intraperitoneal air. Nonobstructive bowel gas pattern. There are some small air-fluid levels within the small bowel on upright imaging that can be seen with enteritis. Bilateral total hip arthroplasties. Posterior inner lumbar fusion along with posterolateral fusion supplemented by instrumentation is stable in appearance. Cholecystectomy. IMPRESSION: 1. No free intraperitoneal air and nonobstructive bowel gas pattern. 2. Some air-fluid levels in the small bowel raise possibility of enteritis. Dictated by: Dictated on workstation # [id number]
--- NOTE | 2020-05-18 07:39 | Diagnostic Imaging Report ---
CT ABDOMEN/PELVIS WO TECHNIQUE: Unenhanced CT imaging of the abdomen and pelvis was performed. 2-D reformats are created and submitted for interpretation. Automatic exposure controls were utilized to optimize patient dose. INDICATION: Abdominal pain, ileus versus small bowel obstruction. COMPARISON: 05/11/2020 FINDINGS: Evaluation of the abdominal viscera is mildly limited without contrast. Lower chest: The lung bases are clear. No pericardial or pleural effusion. Peritoneum: No free intraperitoneal air or fluid. Liver and biliary system: Unenhanced liver is normal. Cholecystectomy. No pathologic biliary duct dilatation. Spleen and Pancreas: Spleen is normal. Unenhanced pancreas is grossly normal. Adrenals: Normal. tract: No renal or ureteral calculi. No obstructive uropathy. Assessment of the prostate and urinary bladder is very limited due to streak artifact from bilateral hip arthroplasties. GI tract: Stomach is moderately distended with fluid and food debris. No dilated loops of small bowel to indicate bowel obstruction. There is a small bowel to small bowel anastomosis in the mid abdomen. The majority of the small bowel loops are fluid-filled. No pericolonic inflammatory changes. Fluid is present throughout the colon as well. Appendix is not seen with certainty but there are no features to suggest acute appendicitis. Vasculature and Lymph nodes: Normal caliber aorta with scattered atherosclerotic plaquing. No abdominal or pelvic lymphadenopathy. Musculoskeletal: Bilateral total hip arthroplasties. Laminectomies with posterolateral instrumented fusion and posterior interbody fusion. IMPRESSION: 1. No bowel obstruction, colitis or diverticulitis. 2. Fluid-filled stomach, small bowel and colon most likely is due to a gastroenteritis. Dictated by: Dictated on workstation # [id number]
[2020-05-18 07:51] VITALS: BP 125/86
== END 2020-05-18 07:51 | disposition home or self-care (01) ==
LOC: EDUNIT# 06:10 → ER 06:11
DX: K52.9 Noninfective gastroenteritis and colitis, unspecified (principal); J44.9 Chronic obstructive pulmonary disease, unspecified; I25.10 Atherosclerotic heart disease of native coronary artery without angina pectoris; F41.9 Anxiety disorder, unspecified; F32.9 Major depressive disorder, single episode, unspecified; N40.0 Benign prostatic hyperplasia without lower urinary tract symptoms; E78.00 Pure hypercholesterolemia, unspecified; I10 Essential (primary) hypertension; M10.9 Gout, unspecified; G89.29 Other chronic pain; M54.9 Dorsalgia, unspecified; Z88.5 Allergy status to narcotic agent; Z85.46 Personal history of malignant neoplasm of prostate; Z87.891 Personal history of nicotine dependence; Z82.49 Family history of ischemic heart disease and other diseases of the circulatory system; Z79.891 Long term (current) use of opiate analgesic
CPT/HCPCS: 36415; 74022; 74176; 80053; 81000; 83605; 85025; 86141

== ENCOUNTER → 2020-09-27 | Outpatient (CLI) | payer MEDICARE, MEDICAID ==
[~2020-09-27] VITALS: Ht 175.3 cm; Wt 89.3 kg
[~2020-09-27] MED LIST changes: +ESCI-2; -ESCI10TA64; +ISOS30TA82 PO; -LISI40TA PO; +LISI40TA9 PO; -METO10TA3 PO; +MONT10TA32 PO; -MONT10TA97 PO; +MTC10T PO
== END | disposition home or self-care (01) ==
LOC: PREOP 09:52
PROVIDERS: ATTEND Surgery
DX: Z01.818 Encounter for other preprocedural examination (principal)

== ENCOUNTER → 2020-09-27 | Outpatient (CLI) | payer MEDICARE, MEDICAID ==
[~2020-09-27] MED LIST changes: -ETOD400T PO; +ETOD400T3 PO
== END ==
LOC: LABNPT 08:59
PROVIDERS: ATTEND Surgery
DX: Z20.822 Contact with and (suspected) exposure to COVID-19 (principal)
CPT/HCPCS: 87635

== ENCOUNTER 2020-09-28 08:52 | Day surgery (SDC) | payer MEDICARE, MEDICAID ==
[~2020-09-28] VITALS: Ht 175.3 cm; Wt 89.3 kg
[2020-09-28] MEDS ORDERED: LACTATED RINGERS 1,000 ML IV ONE ×2 (09:04→11:53)
[2020-09-28 09:10] VITALS: BP 150/82
[2020-09-28] MEDS ORDERED: LACTATED RINGERS 1,000 ML IV STA (09:13)
[2020-09-28] MEDS ORDERED: LIDOCAINE JELLY 2% 6 ML SYRINGE MM PRN (09:15)
[2020-09-28] MEDS ORDERED: HURRICAINE EXT TUBE (BENZOCAINE) XX PRN (09:15)
[2020-09-28] MEDS ORDERED: fentaNYL INJ 100 MCG/2 ML AMP ONE (09:41)
[2020-09-28] MEDS ORDERED: fentaNYL INJ 100 MCG/2 ML AMP IVP ONE (09:45)
--- NOTE | 2020-09-28 11:39 | Conscious Sedation/ASA ---
Conscious Sedation Pre-Proced Time 11:00 ASA Score 3 For ASA 3 and 4: Consider anesthesia and medical clearance. Also, for patients with a history of failed moderate sedation consider anesthesia. Airway Lungs Heart ASA score ASA 1: a normal healthy patient ASA 2: a patient with a mild systemic disease (mid diabetes, controlled hypertension, obesity ASA 3: a patient with a severe systemic disease that limits activity (angina, COPD, prior Myocardial infarction) ASA 4: a patient with an incapacitating disease that is a constant threat to life (CHF, renal failure) ASA 5: a moribund patient not expected to survive 24 hrs. (ruptured aneurysm) ASA 6: a declared brain- patient whose organs are being harvested. For emergent operations, add the letter E after the classification Mallampati Classification Grade 2 Sedation Plan Analgesia, Amnesia, Plan communicated to team members, Discussed options with patient/fam, Discussed risks with patient/fam The patient is an appropriate candidate to undergo the planned procedure, sedation, and anesthesia. The patient immediately re-assessed prior to indication. KAUSHIK SHEN MD Sep 28, 2020 11:39
--- NOTE | 2020-09-28 11:40 | Progress Note-Pre Operative ---
Pre-Operative Progress Note H&P Reviewed The H&P was reviewed, patient examined and no changes noted. Date Seen by Provider: Sep 28, 2020 Time Seen by Provider: 11:00 Date H&P Reviewed: Sep 28, 2020 Time H&P Reviewed: 11:00 Pre-Operative Diagnosis: GERD, hematamesis KAUSHIK SHEN MD Sep 28, 2020 11:40
--- NOTE | 2020-09-28 11:42 | Discharge Inst-Surgical ---
D/C Lap Instructions-HERMELINDA Follow Up Activity as tolerated High Fiber Diet 25g or more per day Avoid Alcohol, Caffeine, Spicy [place]melee and Acid foods. Drink 64 fluid oz or more of fluids per day. Symptoms to Report: Fever over 101 degree F, Nausea/Vomiting If any problems/questions: Contact your physician or go to Emergency Room KAUSHIK SHEN MD Sep 28, 2020 11:42
[2020-09-28] MEDS ORDERED: ACETAMINOPHEN 325 MG TABLET PO PRN (11:45)
[2020-09-28] MEDS ORDERED: fentaNYL INJ 100 MCG/2 ML AMP IVP PRN (11:45)
[2020-09-28] MEDS ORDERED: ONDANSETRON 4 MG/2 ML (SDV) Z0FRAN IVP PRN (11:45)
[2020-09-28] MEDS ORDERED: HYDROcodone/APAP 5 MG/325 MG (LORTAB) TAB PO PRN (11:45)
[2020-09-28] MEDS ORDERED: MIDAZOLAM 2 MG/2 ML (VERSED) VIAL ONE (12:36)
[2020-09-28] MEDS ORDERED: PROPOFOL INJECTION 50 ML IV ONE ×2 (12:36→12:51)
[2020-09-28 13:00] VITALS: BP 111/52
[2020-09-28 13:05] VITALS: BP 113/56
[2020-09-28 13:10] VITALS: BP 132/74
[2020-09-28 13:15] VITALS: BP 132/74
[2020-09-28 13:40] VITALS: BP 130/75
--- NOTE | 2020-09-28 14:26 | Progress Note-Post Operative ---
Post-Operative Progess Note Surgeon (s)/Elevator Builder (s) Surgeon KAUSHIK SHEN MD Elevator Builder: none Pre-Operative Diagnosis GERD, hematamesis Post-Operative Diagnosis reflux esophagitis(stage 2), moderate HH(2.5cm), moderate gastritis with small prepyloric ulcer(5mm). Procedure & Operative Findings Date of Procedure 09/28/20 Procedure Performed/Findings EGD with bx. Anesthesia Type mac Estimated Blood Loss Estimated blood loss (mL): minimal Specimens/Packing Specimens Removed ge jxn, prepyloric ulcer KAUSHIK SHEN MD Sep 28, 2020 14:26
--- NOTE | 2020-09-28 17:36 | OPERATIVE REPORT ---
DATE OF SERVICE: 09/28/2020 ATTENDING PRIMARY CARE PHYSICIAN: [facility]. PREOPERATIVE DIAGNOSIS: History of significant gastroesophageal reflux disease, Carmelo ulceration, hematemesis. POSTOPERATIVE DIAGNOSES: Reflux esophagitis stage II, small to moderate size hiatal hernia approximately 2.5 cm in size, severe gastritis with a prepyloric ulcer, which was small, approximately 5 mm in size. No active bleeding. Normal duodenum. PROCEDURE: EGD with biopsy. SURGEON: Kaushik Shen MD. ANESTHESIA: Monitored anesthesia care. ESTIMATED BLOOD LOSS: Minimal. FINDINGS: Reflux esophagitis stage II, small to moderate size hiatal hernia approximately 2.5 cm in size, severe gastritis with a prepyloric ulcer, which was small, approximately 5 mm in size. No active bleeding. Normal duodenum. DISPOSITION: The patient tolerated the procedure well. INDICATIONS: The patient is a 75-year-old male with a longstanding history of gastroesophageal reflux disease and peptic ulcer disease. His first EGD in 2013, was found to have an ulceration at the tip of the polyp along the cardia of the stomach. This was biopsied multiple times and found to be benign. He continued to have symptoms and all biopsies were negative for malignancy as well as negative for Marie's esophagus and H. pylori. He reports again that he has had issues with nausea and vomiting and he also had reported a few episodes of hematemesis. He is currently on Dexilant. He has previous history of smoking of 60 pack years; however, quit in 1994. DESCRIPTION OF PROCEDURE: The patient was brought to the endoscopy suite, laid in the left lateral decubitus position. After adequate IV pain and sedative medications and monitored anesthesia care, the mouthpiece was applied. The endoscope was placed in the mouth, visualizing the pharynx and hypopharyngeal region. Vocal cords, epiglottis and vallecula identified and appeared to be normal. The endoscope was gently abated esophageal opening and esophagus insufflated. The endoscope was then advanced through the first, second and third portion of esophagus at the level of the GE junction, reflux esophagitis stage II identified. There were no ulcers or strictures identified in this region. A biopsy was taken with forceps with visualization of good hemostasis. The endoscope was then advanced in the stomach and endoscope retroflexed, visualizing a small hiatal hernia approximately 2.5 cm in size. Severe gastritis was noted more towards the stomach antrum where a prepyloric ulcer identified, which was small, approximately 5 mm in size with no active bleeding. A biopsy was taken of the ulcer with forceps with visualization of good hemostasis. The endoscope was then advanced to the pylorus and the first and second portion of the duodenum, which appeared normal with no ulcerations or any bleeding sources. The endoscope was then slowly withdrawn while taking a second look and suctioning of residual air with no additional findings. The patient tolerated the procedure well. Again, with his history as well as multiple medical comorbidities, we are going to recommend continued medical management with the necessary lifestyle and diet accommodation including small and more frequent meals, avoidance of eating at night as well as head elevation while lying supine. He is currently on Dexilant as well as Pepcid; however, we want him to discontinue the Pepcid and replace this omeprazole 40 mg daily. He also needs to avoid caffeinated beverages, spicy, greasy and acidic foods. Job ID: [id number] DocumentID: [id number] Dictated Date: 09/28/2020 13:10:44 Stoneworking Sander Date: 09/28/2020 17:35:07 Dictated By: KAUSHIK SHEN MD
== END 2020-09-28 13:45 | disposition home or self-care (01) ==
LOC: ENDO 08:52
PROVIDERS: ATTEND Surgery
DX: K29.00 Acute gastritis without bleeding (principal); K44.9 Diaphragmatic hernia without obstruction or gangrene; K21.00 Gastro-esophageal reflux disease with esophagitis, without bleeding; I25.10 Atherosclerotic heart disease of native coronary artery without angina pectoris; G47.33 Obstructive sleep apnea (adult) (pediatric); J44.9 Chronic obstructive pulmonary disease, unspecified; E11.9 Type 2 diabetes mellitus without complications; F32.9 Major depressive disorder, single episode, unspecified; F41.9 Anxiety disorder, unspecified; E78.5 Hyperlipidemia, unspecified; M10.9 Gout, unspecified; I12.9 Hypertensive chronic kidney disease with stage 1 through stage 4 chronic kidney disease, or unspecified chronic kidney disease; N18.30 Chronic kidney disease, stage 3 unspecified; M19.90 Unspecified osteoarthritis, unspecified site; Z79.899 Other long term (current) drug therapy; Z87.891 Personal history of nicotine dependence; Z79.82 Long term (current) use of aspirin; Z79.891 Long term (current) use of opiate analgesic; Z79.1 Long term (current) use of non-steroidal anti-inflammatories (NSAID); Z85.46 Personal history of malignant neoplasm of prostate; Z90.49 Acquired absence of other specified parts of digestive tract

== ENCOUNTER 2020-10-01 19:02 | Emergency (ER) | payer MEDICARE, MEDICAID | END 2020-10-01 19:13 | disposition left against medical advice (07) | LOC: EDUNIT# 19:02 → ER FS 19:04 | DX: R10.9 Unspecified abdominal pain (principal); R11.2 Nausea with vomiting, unspecified ==

== ENCOUNTER 2020-11-24 03:09 | Emergency (ER) | payer MEDICARE, MEDICAID ==
[~2020-11-24] VITALS: Ht 175.3 cm; Wt 102.1 kg
[~2020-11-24 03:09] MED LIST changes: -SULF1TAB35 PO; +SULF1TAB38 PO
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
[2020-11-24 05:10] VITALS: BP 152/87
--- NOTE | 2020-11-24 10:22 | Diagnostic Imaging Report ---
INDICATION: Left knee arthroplasty, degenerative joint disease. COMPARISON: 12/26/2012. FINDINGS: 3 views left knee demonstrate well seated intact left knee arthroplasty. There is no acute fracture or dislocation. No joint effusion seen. IMPRESSION: Stable appearing left knee arthroplasty. No fracture. Dictated by: Dictated on workstation # [id number]
--- NOTE | 2020-11-24 10:23 | Diagnostic Imaging Report ---
HISTORY: Pelvic pain and left hip pain TECHNIQUE: Frontal view of the pelvis. 2 views of the left hip. COMPARISON: 11/25/2018 FINDINGS: There are total hip arthroplasties bilaterally. There is lumbar fusion of L3-S1. There are interbody disc spacers and laminectomies at these levels as well. Bilateral sacroiliac joints appear patent. No hardware complication is seen on these images. No acute fracture is seen. IMPRESSION:. Bilateral hip arthroplasties without hardware complication or acute osseous abnormalities seen. Dictated by: Dictated on workstation # [id number]
--- NOTE | 2020-11-24 10:48 | Diagnostic Imaging Report ---
INDICATION: Chest wall pain. PA and lateral views were obtained. FINDINGS: The heart size is normal. Lungs are clear. There is no pleural fusion or pneumothorax. Mediastinum is unremarkable. There are degenerative changes in the spine. Digital cardiac device overlies the left hemithorax. IMPRESSION: No acute cardiopulmonary abnormality. Dictated by: Dictated on workstation # [id number]
== END 2020-11-24 05:11 | disposition home or self-care (01) ==
LOC: EDUNIT# 03:09 → ER 03:11
DX: R07.89 Other chest pain (principal); M25.552 Pain in left hip; M25.562 Pain in left knee; J44.9 Chronic obstructive pulmonary disease, unspecified; G47.30 Sleep apnea, unspecified; I10 Essential (primary) hypertension; I25.10 Atherosclerotic heart disease of native coronary artery without angina pectoris; E78.00 Pure hypercholesterolemia, unspecified; G89.29 Other chronic pain; M54.9 Dorsalgia, unspecified; N40.0 Benign prostatic hyperplasia without lower urinary tract symptoms; E11.9 Type 2 diabetes mellitus without complications; F41.9 Anxiety disorder, unspecified; F32.9 Major depressive disorder, single episode, unspecified; Z87.891 Personal history of nicotine dependence; Z79.899 Other long term (current) drug therapy; Z79.891 Long term (current) use of opiate analgesic
CPT/HCPCS: 71046; 73562

== ENCOUNTER 2020-12-22 04:40 | Emergency (ER) | payer MEDICARE, MEDICAID ==
[~2020-12-22] VITALS: Ht 172 cm; Wt 102.1 kg
[2020-12-22] MEDS ORDERED: fentaNYL INJ 100 MCG/2 ML AMP IM ONE (05:00)
[2020-12-22] MEDS ORDERED: HYDROcodone/APAP 5 MG/325 MG (LORTAB) TAB PO ONE (05:00)
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
[2020-12-22] MEDS ORDERED: HYDROcodone/APAP 5 MG/325 MG (LORTAB) TAB ONE (05:19)
[2020-12-22 05:22] VITALS: BP 161/59
== END 2020-12-22 05:22 | disposition home or self-care (01) ==
LOC: EDUNIT# 04:40 → ER 04:42
DX: G89.29 Other chronic pain (principal); M25.562 Pain in left knee; M79.652 Pain in left thigh; M54.9 Dorsalgia, unspecified; F11.23 Opioid dependence with withdrawal; I10 Essential (primary) hypertension; E78.00 Pure hypercholesterolemia, unspecified; I25.10 Atherosclerotic heart disease of native coronary artery without angina pectoris; J43.9 Emphysema, unspecified; G47.30 Sleep apnea, unspecified; N40.0 Benign prostatic hyperplasia without lower urinary tract symptoms; M10.9 Gout, unspecified; E11.9 Type 2 diabetes mellitus without complications; F41.9 Anxiety disorder, unspecified; F32.9 Major depressive disorder, single episode, unspecified; Z88.5 Allergy status to narcotic agent; Z99.89 Dependence on other enabling machines and devices; Z79.1 Long term (current) use of non-steroidal anti-inflammatories (NSAID); Z79.51 Long term (current) use of inhaled steroids; Z79.899 Other long term (current) drug therapy
CPT/HCPCS: 96372; 99284

== ENCOUNTER 2021-06-08 23:44 | Emergency (ER) | payer MEDICARE, MEDICAID ==
[~2021-06-08] VITALS: Ht 175 cm; Wt 91.6 kg
[~2021-06-08 23:44] MED LIST changes: +CYCL10TA25 PO; -CYCL10TA9 PO; +MONT-40 PO; -MONT10TA32 PO; +ONDA-106 PO; -ONDA8TAB15 PO; +TIZA-186 PO; -TIZA4TAB4 PO
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
[2021-06-09 00:14] VITALS: BP 158/97
[2021-06-09] MEDS ORDERED: KETOROLAC 60 MG/2 ML VIAL IM ONE (00:15)
== END 2021-06-09 00:20 | disposition home or self-care (01) ==
LOC: EDUNIT# 23:44 → ER FS 23:47
DX: S46.002A Unspecified injury of muscle(s) and tendon(s) of the rotator cuff of left shoulder, initial encounter (principal); Z87.891 Personal history of nicotine dependence; X50.0XXA Overexertion from strenuous movement or load, initial encounter
CPT/HCPCS: 99284

== ENCOUNTER 2021-06-09 02:11 | Emergency (ER) | payer MEDICARE, MEDICAID ==
[~2021-06-09] VITALS: Ht 175.2 cm; Wt 91.6 kg
[2021-06-09] MEDS ORDERED: oxyCODONE/APAP 10/325MG (PERCOCET 10) TABLET PO ONE (03:15)
[2021-06-09] MEDS ORDERED: oxyCODONE/APAP 5/325MG (PERCOCET 5) TABLET ONE (03:23)
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
[2021-06-09 03:28] VITALS: BP 138/87
[2021-06-09] MEDS ORDERED: oxyCODONE/APAP 5/325MG (PERCOCET 5) TABLET PO ONE (03:30)
--- NOTE | 2021-06-09 06:54 | Diagnostic Imaging Report ---
INDICATION: Shoulder pain COMPARISON: None available TECHNIQUE: 2 radiographs of the left shoulder dated 06/09/2021 FINDINGS: No acute fracture or dislocation. The acromioclavicular joint appears unremarkable for age. Multiple chronic appearing posterior lateral left-sided rib fractures. The humeral head is slightly superiorly positioned in relationship to the glenoid with narrowing of the subacromial space. No suspicious radiopaque foreign body. IMPRESSION: No acute osseous abnormality with mild degenerative changes. Narrowing of the subacromial space, which can be seen with chronic rotator cuff tears. This can be confirmed with nonemergent MRI of the left shoulder. Chronic left-sided rib fractures. Dictated by: Dictated on workstation # [id number]
== END 2021-06-09 03:28 | disposition home or self-care (01) ==
LOC: EDUNIT# 02:11 → ER FS 02:13
DX: S46.002A Unspecified injury of muscle(s) and tendon(s) of the rotator cuff of left shoulder, initial encounter (principal); Z87.891 Personal history of nicotine dependence; X58.XXXA Exposure to other specified factors, initial encounter
CPT/HCPCS: 73030

== ENCOUNTER 2021-08-27 16:38 | Emergency (ER) | payer MEDICARE, MEDICAID ==
[~2021-08-27] VITALS: Ht 175 cm; Wt 92.0 kg
[~2021-08-27 16:38] MED LIST changes: +OMEP20TA56 PO; -OMEP20TA7 PO
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
[2021-08-27 16:52] VITALS: BP 163/91
[2021-08-27] MEDS ORDERED: fentaNYL INJ 100 MCG/2 ML AMP IM STA (17:25)
[2021-08-27] MEDS ORDERED: KETOROLAC 30 MG/ML VIAL IM STA (17:25)
== END 2021-08-27 17:40 | disposition home or self-care (01) ==
LOC: EDUNIT# 16:38 → ER FS 16:40
DX: G89.29 Other chronic pain (principal); M25.512 Pain in left shoulder; G47.30 Sleep apnea, unspecified; Z99.89 Dependence on other enabling machines and devices; Z28.310 Unvaccinated for COVID-19
CPT/HCPCS: 99284

== ENCOUNTER 2021-08-29 20:00 | Emergency (ER) | payer MEDICARE, MEDICAID ==
[~2021-08-29] VITALS: Ht 175.2 cm; Wt 92.0 kg
[2021-08-29] MEDS ORDERED: ONDANSETRON 4 MG/2 ML (SDV) Z0FRAN IVP STA (20:16)
[2021-08-29] MEDS ORDERED: NS IV 1000 ML 1,000 ML IV STA (20:16)
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
[2021-08-29 20:27] LABS: BASOPHILS # (AUTO) 0.1 10^3/uL (0.0-0.1); BASOPHILS % (AUTO) 1 % (0-10); EOSINOPHILS # (AUTO) 0.2 10^3/uL (0.0-0.3); EOSINOPHILS % (AUTO) 2 % (0-10); HEMATOCRIT 37 % (40-54); HEMOGLOBIN 11.6 g/dL (13.3-17.7); LYMPHOCYTES # (AUTO) 2.7 10^3/uL (1.0-4.0); LYMPHOCYTES % (AUTO) 27 % (12-44); MEAN CORPUSCULAR HEMOGLOBIN 23 pg (25-34); MEAN CORPUSCULAR HGB CONC 32 g/dL (32-36); MEAN CORPUSCULAR VOLUME 72 fL (80-99); MEAN PLATELET VOLUME 9.2 fL (9.0-12.2); MONOCYTES # (AUTO) 0.9 10^3/uL (0.0-1.0); MONOCYTES % (AUTO) 9 % (0-12); NEUTROPHILS # (AUTO) 6.2 10^3/uL (1.8-7.8); NEUTROPHILS % (AUTO) 61 % (42-75); PLATELET COUNT 415 10^3/uL (130-400); WHITE BLOOD COUNT 10.1 10^3/uL (4.3-11.0)
--- NOTE | 2021-08-29 20:29 | Diagnostic Imaging Report ---
EXAMINATION: Chest 1 view HISTORY: Chest pain COMPARISON: 02/22/2020 FINDINGS: Heart size and pulmonary vasculature are normal. The lungs are clear without consolidation, pleural effusion, or pneumothorax. The osseous structures are intact. Changes from right shoulder arthroplasty. IMPRESSION: 1. No acute radiographic abnormality in the chest. Dictated by: Dictated on workstation # [id number]
[2021-08-29 20:32] LABS: INR 0.9 (0.8-1.4); PROTHROMBIN TIME PATIENT 12.8 SEC (12.2-14.7)
[2021-08-29] MEDS ORDERED: fentaNYL INJ 100 MCG/2 ML AMP IVP STA ×3 (20:34→23:41)
[2021-08-29] MEDS ORDERED: PANTOPRAZOLE 40 MG (PROTONIX) VIAL IV STA (20:34)
[2021-08-29 20:40] LABS: FIBRIN DEGRADATION PRODUCTS 1.96 UG/ML (0.00-0.49)
[2021-08-29 20:48] LABS: BILIRUBIN,TOTAL 0.2 MG/DL (0.1-1.0); CALCIUM 9.4 MG/DL (8.5-10.1); CREATININE SERUM 1.15 MG/DL (0.60-1.30); MAGNESIUM 1.6 MG/DL (1.6-2.4); POTASSIUM 4.1 MMOL/L (3.6-5.0); TOTAL PROTEIN 7.2 GM/DL (6.4-8.2)
[2021-08-29 20:49] LABS: ALBUMIN 4.5 GM/DL (3.2-4.5)
[2021-08-29] MEDS ORDERED: NS 100 ML (IVPB) BAG IV ONE (21:00)
[2021-08-29] MEDS ORDERED: HOLD METFORMIN - RECEIVED CONTRAST 20 ML VIAL IV SCH (21:00)
[2021-08-29] MEDS ORDERED: IOHEXOL 350 MG/ML 150 ML (OMNIPAQUE 350) VIAL IV ONE (21:00)
--- NOTE | 2021-08-29 21:47 | Diagnostic Imaging Report ---
EXAMINATION: CT angiography of the chest, CT of the abdomen and pelvis. TECHNIQUE: Contrast enhanced thin section helical images were obtained through the chest, abdomen and pelvis with intravenous contrast timed for the optimal opacification of the arterial structures of the chest per CTA protocol. Post-processing, reconstructions and interpretation of angiographic images of the vessels was performed. 3D MIP reconstructions were performed and reviewed. All CT scans use one or more of the following dose optimizing techniques: automated exposure control, MA and/or KvP adjustment based on a patient size and exam type, or iterative reconstruction. HISTORY: COVID positive, chest and epigastric pain. COMPARISON: 05/18/2020 FINDINGS: Vascular: No filling defects within the pulmonary arteries. Thoracic aorta is normal in caliber. Calcification of the aorta and coronary vessels. Thyroid: The thyroid is normal. Mediastinum: Heart size is normal without significant pericardial effusion. No suspicious lymphadenopathy. Lungs and airways: There are minimal background emphysematous changes. No consolidation, pleural effusion, or pneumothorax. The airways are normal. Solid organs: The liver is normal without focal lesion. The gallbladder is surgically absent. There is no biliary ductal dilation. Pancreas is normal. There are areas of peripheral hypoattenuation seen within the spleen. Adrenal glands are normal. The kidneys are normal without hydronephrosis. Bowel: The stomach and small bowel are normal without obstruction. There are a few scattered colonic diverticula. No findings of acute appendicitis. Peritoneum: There is no intraperitoneal free fluid or free air. No suspicious lymphadenopathy. Vasculature: Calcification of the aorta without aneurysm. Musculoskeletal: Degenerative changes of the spine without suspicious osseous lesion or compression fracture. Surgical changes from lumbar fusion and laminectomy. There are chronic healed left rib fractures. Bilateral hip arthroplasties. Pelvis: The prostate gland is obscured by streak artifact from bilateral hip prostheses. The visualized urinary bladder is normal. IMPRESSION: 1. No findings of pulmonary embolus. 2. No acute abnormality in the chest, abdomen or pelvis. 3. Peripheral hypoattenuation of the spleen which is indeterminate and could be seen with sequela of prior trauma, infection, or infarct. Dictated by: Dictated on workstation # [id number]
[2021-08-29] MEDS ORDERED: DICYCLOMINE 10 MG/ML (BENTYL) 2 ML AMP IM STA (22:15)
[2021-08-29] MEDS ORDERED: diphenhydrAMINE 50 MG/ML INJ (BENADRYL) IVP STA (22:23)
[2021-08-29] MEDS ORDERED: METOCLOPRAMIDE INJ 10 MG/2 ML (REGLAN) IVP STA (22:23)
[2021-08-29] MEDS ORDERED: RX-PHENERGAN 25 MG SUPP PPK#3 PR STA (23:41)
[2021-08-29] MEDS ORDERED: RX-DICYCLOMINE 10 MG (BENTYL) CAP PPK#4 PO STA (23:41)
[2021-08-29] MEDS ORDERED: PROMETHAZINE INJ 25 MG/ML (PHENERGAN) AMP IVP STA (23:41)
[2021-08-29] MEDS ORDERED: PROM25TA14 PO (23:50)
[2021-08-29] MEDS ORDERED: DICY10CA12 PO (23:50)
[2021-08-30 00:15] VITALS: BP 173/77
== END 2021-08-30 00:15 | disposition home or self-care (01) ==
LOC: EDUNIT# 20:00 → ER FS 20:03
DX: R11.2 Nausea with vomiting, unspecified (principal); R10.13 Epigastric pain; R07.89 Other chest pain; R00.0 Tachycardia, unspecified; R79.89 Other specified abnormal findings of blood chemistry; Z20.822 Contact with and (suspected) exposure to COVID-19; Z28.310 Unvaccinated for COVID-19
CPT/HCPCS: 36415; 71045; 71275; 74177; 80053; 83690; 83735; 83874; 83880; 84484; 85025; 85379; 85610; 85730; 87636; 87804; 93005; 93041; 96361; 96372; 96374; 96375; 96376; Q9967

== ENCOUNTER 2021-10-23 11:12 | Observation (INO) | payer MEDICARE, MEDICAID ==
[~2021-10-23] VITALS: Ht 175.3 cm; Wt 92.4 kg
[~2021-10-23 11:12] MED LIST changes: +ASPI-1238 PO; +DICY10CA12 PO; +ISOS60TA63 PO; +PROM25TA14 PO; +TIZA6CAP9 PO
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
[2021-10-23] MEDS ORDERED: NS IV 1000 ML 1,000 ML IV SCH (11:30)
[2021-10-23] MEDS ORDERED: oxyCODONE/APAP 5/325MG (PERCOCET 5) TABLET PO ONE (11:45)
--- NOTE | 2021-10-23 11:58 | Diagnostic Imaging Report ---
PROCEDURE: CT lumbar spine without contrast. TECHNIQUE: Multiple contiguous axial images were obtained through the lumbar spine without the use of intravenous contrast. Sagittal and coronal reformations were then performed. Auto Exposure Controls were utilized during the CT exam to meet ALARA standards for radiation dose reduction. INDICATION: Low back pain. Lumbar spine surgery. COMPARISON: CT abdomen and pelvis without contrast 05/18/2020. FINDINGS: Normal alignment. Vertebral body heights preserved. No fractures. Advanced degenerative endplate changes at L1-L3. Posterior instrumentation at L3-S1 with laminectomies and interbody fusions. The left L3 pedicle screw travels through the left superior articular process and terminates in the body of L2. There are lucencies about the pedicle screw consistent with loosening. These are stable compared to 05/18/2020. Hardware components are intact. No high-grade spinal canal stenosis is evident on noncontrast CT. There is at least moderate neural foraminal narrowing on the left at L2-L3. Visualized pelvis is intact. Mild atherosclerotic calcifications. No acute findings in the visualized paravertebral soft tissues. IMPRESSION: 1. No acute CT findings in the lumbar spine. 2. Postoperative changes detailed above including loosening about the left at L2-L3 pedicle screw which is stable compared to 05/18/2020. No hardware fractures. Dictated by: Dictated on workstation # [id number]
--- NOTE | 2021-10-23 12:00 | Diagnostic Imaging Report ---
INDICATION: Left shoulder pain. COMPARISON: 06/09/2021 TECHNIQUE: 3 radiographs of left shoulder dated 10/23/2021. FINDINGS: Multiple chronic left-sided rib fractures are again identified. Mild degenerative changes of the acromioclavicular joint. No acute fracture or dislocation. No destructive osseous process. Degenerative changes of the glenohumeral joint are noted with associated joint space narrowing and mild osteophyte formation. Narrowing of the subacromial space is again seen. No suspicious radiopaque foreign body. IMPRESSION: No acute osseous abnormality with mild degenerative changes present. Narrowing of the subacromial space, which can be seen with chronic rotator cuff tears. This can be confirmed with an MRI of the left shoulder. Dictated by: Dictated on workstation # [id number]
[2021-10-23] MEDS ORDERED: NS IV 1000 ML 1,000 ML IV STA (12:39)
[2021-10-23 12:47] LABS: BASOPHILS # (AUTO) 0.1 10^3/uL (0.0-0.1); BASOPHILS % (AUTO) 1 % (0-10); EOSINOPHILS # (AUTO) 0.2 10^3/uL (0.0-0.3); EOSINOPHILS % (AUTO) 3 % (0-10); HEMATOCRIT 27 % (40-54); HEMOGLOBIN 8.2 g/dL (13.3-17.7); LYMPHOCYTES # (AUTO) 1.4 10^3/uL (1.0-4.0); LYMPHOCYTES % (AUTO) 22 % (12-44); MEAN CORPUSCULAR HEMOGLOBIN 23 pg (25-34); MEAN CORPUSCULAR HGB CONC 31 g/dL (32-36); MEAN CORPUSCULAR VOLUME 73 fL (80-99); MONOCYTES # (AUTO) 0.8 10^3/uL (0.0-1.0); MONOCYTES % (AUTO) 12 % (0-12); NEUTROPHILS # (AUTO) 4.1 10^3/uL (1.8-7.8); NEUTROPHILS % (AUTO) 63 % (42-75); PLATELET COUNT 285 10^3/uL (130-400); WHITE BLOOD COUNT 6.5 10^3/uL (4.3-11.0)
--- NOTE | 2021-10-23 12:56 | Diagnostic Imaging Report ---
INDICATION: Hypotension and dizziness Frontal chest obtained at 12:39 p.m. and compared to 09/24/2021. Heart and mediastinal silhouette are unremarkable. There is a loop recorder over the left chest. There is no focal infiltrate or pneumothorax or pleural fluid. IMPRESSION: No acute process in the chest. Dictated by: Dictated on workstation # [id number]
--- NOTE | 2021-10-23 13:09 | Diagnostic Imaging Report ---
Clinical Indication: Patient with dizziness and hypotension. Exam: Axial CT scan of the brain without IV contrast with coronal and sagittal reformatted images. Auto Exposure Controls were utilized during the CT exam to meet ALARA standards for radiation dose reduction. Comparison: Head CT without contrast dated 02/22/2020. Findings: There is no evidence of acute cerebral infarct, intracranial hemorrhage, or gross mass effect. The brain parenchymal volume appears appropriate for patient's age. There is normal vasquez-white matter distinction. There is no significant midline shift or herniation. There is no evidence of hydrocephalus. The basal cisterns are unremarkable. The skull, extracranial soft tissue, and orbits are unremarkable. There is minimal mucosal thickening involving right maxillary sinus. Temporal bones show no significant abnormality. Impression: 1: There is no evidence of acute intracranial process. 2: There is mild right maxillary sinus disease. Dictated by: Dictated on workstation # [id number]
[2021-10-23 13:24] LABS: CARBON DIOXIDE 22 MMOL/L (21-32); CHLORIDE 105 MMOL/L (98-107); POTASSIUM 4.7 MMOL/L (3.6-5.0); SODIUM 136 MMOL/L (135-145)
[2021-10-23 13:25] LABS: ALANINE AMINOTRANSFERASE 9 U/L (0-55); ALKALINE PHOSPHATASE 74 U/L (40-136); BILIRUBIN,TOTAL 0.2 MG/DL (0.1-1.0); BUN/CREATININE RATIO 13; CALCIUM 8.5 MG/DL (8.5-10.1); CREATININE SERUM 1.64 MG/DL (0.60-1.30); GFR ESTIMATED 43; GLUCOSE 132 MG/DL (70-105); MAGNESIUM 1.7 MG/DL (1.6-2.4); TOTAL PROTEIN 5.6 GM/DL (6.4-8.2)
[2021-10-23 13:26] LABS: ALBUMIN 3.7 GM/DL (3.2-4.5)
[2021-10-23 14:39] LABS: BILIRUBIN,URINE NEGATIVE (NEGATIVE); CLARITY,URINE CLEAR; COLOR,URINE YELLOW; GLUCOSE, URINE (UA) NEGATIVE (NEGATIVE); KETONES,URINE NEGATIVE (NEGATIVE); NITRITE,URINE NEGATIVE (NEGATIVE); PH,URINE 5.5 (5-9); PROTEIN,URINE NEGATIVE (NEGATIVE)
[2021-10-23 14:40] LABS: LEUKOCYTE ESTERASE ,URINE NEGATIVE (NEGATIVE)
[2021-10-23 14:53] LABS: BACTERIA,URINE NEGATIVE /HPF; SQUAMOUS EPITHELIAL CELL,UR RARE /HPF; WBC,URINE 0-2 /HPF
[2021-10-23 14:54] LABS: HYALINE CASTS, URINE 25-50 /LPF
[2021-10-23 16:17] VITALS: BP 143/65
[2021-10-23] MEDS: NS IV 1000 ML 1,000 ML IV SCH (16:50)
[2021-10-23] MEDS ORDERED: HYDROcodone/APAP 5 MG/325 MG (LORTAB) TAB ONE (16:52)
[2021-10-23] MEDS: HYDROcodone/APAP 5 MG/325 MG (LORTAB) TAB PO PRN (16:53)
[2021-10-23] MEDS ORDERED: ENOXAPARIN 40 MG/0.4 ML (LOVENOX) SYR SC SCH (17:00)
[2021-10-23 19:48] VITALS: BP 136/68
[2021-10-23] MEDS ORDERED: CATHETER FLUSH 10 ML SYR IVP SCH (22:00)
[2021-10-23 23:14] VITALS: BP 133/68
[2021-10-24] MEDS: NS IV 1000 ML 1,000 ML IV SCH ×2 (00:50→08:50)
[2021-10-24] MEDS: HYDROcodone/APAP 5 MG/325 MG (LORTAB) TAB PO PRN ×3 (00:51→15:06)
[2021-10-24 03:31] VITALS: BP 160/75
[2021-10-24 05:28] LABS: BASOPHILS % (AUTO) 0 % (0-10); EOSINOPHILS % (AUTO) 0 % (0-10); HEMATOCRIT 30 % (40-54); HEMOGLOBIN 9.1 g/dL (13.3-17.7); LYMPHOCYTES # (AUTO) 0.9 10^3/uL (1.0-4.0); LYMPHOCYTES % (AUTO) 10 % (12-44); MEAN CORPUSCULAR HEMOGLOBIN 22 pg (25-34); MEAN CORPUSCULAR HGB CONC 31 g/dL (32-36); MEAN CORPUSCULAR VOLUME 72 fL (80-99); MEAN PLATELET VOLUME 9.4 fL (9.0-12.2); MONOCYTES # (AUTO) 0.4 10^3/uL (0.0-1.0); MONOCYTES % (AUTO) 4 % (0-12); NEUTROPHILS # (AUTO) 7.6 10^3/uL (1.8-7.8); NEUTROPHILS % (AUTO) 85 % (42-75); PLATELET COUNT 340 10^3/uL (130-400); WHITE BLOOD COUNT 8.9 10^3/uL (4.3-11.0)
[2021-10-24 05:50] LABS: POTASSIUM 4.2 MMOL/L (3.6-5.0)
[2021-10-24 05:51] LABS: CALCIUM 9.1 MG/DL (8.5-10.1)
[2021-10-24 05:53] LABS: TOTAL PROTEIN 6.5 GM/DL (6.4-8.2)
[2021-10-24 05:54] LABS: BILIRUBIN,TOTAL 0.4 MG/DL (0.1-1.0)
[2021-10-24 05:56] LABS: CREATININE SERUM 1.09 MG/DL (0.60-1.30)
[2021-10-24 07:19] VITALS: BP 166/86
[2021-10-24] MEDS ORDERED: busPIRone 15 MG (BUSPAR) TABLET PO SCH (09:00)
[2021-10-24] MEDS ORDERED: amLODIPine 10 MG (NORVASC) TAB PO SCH (09:00)
[2021-10-24] MEDS ORDERED: PHARMACY TO DOSE SQ SCH (09:00)
[2021-10-24] MEDS ORDERED: lisINopril 40 MG (PRINIVIL) TABLET PO SCH (09:00)
[2021-10-24 11:48] VITALS: BP 135/79
[2021-10-24 16:01] VITALS: BP 166/80
--- NOTE | 2021-10-24 16:28 | Short Stay Summary ---
HPI History of Present Illness: 76 yo M that presented to ER after having several dizzy spells. Patient states that he was recently started on a new blood pressure medication several weeks ago and that was when he started to have these episodes. When he presented to the ER he had profound hypotension. Denies any chest pain or shortness of breath. States that he has been having his left shoulder worked on due to pain. Source: patient Exam Limitations: no limitations Date seen by provider: Oct 24, 2021 Time Seen by Provider: 11:45 Attending Physician Julius Will PCP Admitting Physician: Violeta Cherry MD Attending Physician: Violeta Cherry MD Consult Date of Admission Oct 23, 2021 at 16:05 Home Medications Home Medications Reviewed patient Home Medication Reconciliation performed by pharmacy medication reconciliations x ray electronics wiring technician and/or nursing. Patients Allergies have been reviewed. Allergies Coded Allergies: morphine (Verified Allergy, Severe, HIVES, N/V,pt has rec. Lortab in the past w/o issue, 10/23/21) AKU-Gjqoag-Ryuhcy Hx Patient Social History Living Status: Lives at home independently Smoking Status: Former Smoker Former smoker/When Quit: Apr 28, 1993 2nd Hand Smoke Exposure: No Recent Hopitalizations: No Alcohol Use?: No Tobacco type used: Cigars Have you traveled recently?: No Immunizations Up To Date Tetanus Booster (TDap): Unknown First/Initial COVID19 Vaccinat: denies Second COVID19 Vaccination You: denies Third COVID19 Vaccination Date: denies Past Medical History PMHx: COPD Asthma Mitral valve prolapse Hiatal hernia Ulcers Chronic kidney disease Fatty liver HTN HLD SurgHx: Bilateral hip replacements Bilateral knee replacements Back surgery x 3 Bowel surgery- possibly abscess initially, then scar tissue removal Family Medical History Significant Family History: Heart Disease Family History: Cardiovascular disease 19 MOTHER Myocardial infarction 19 MOTHER, Onset:62 G8 SISTER Review of Systems (CHC) Constitutional: dizziness; No malaise, No weakness EENTM: no symptoms reported; No mouth pain, No nose congestion, No nose pain, No throat pain Respiratory: no symptoms reported; No cough, No dyspnea on exertion, No short of breath Cardiovascular: no symptoms reported; No chest pain, No edema, No palpitations Gastrointestinal: no symptoms reported; No abdominal pain, No constipation, No diarrhea, No nausea, No vomiting Genitourinary: no symptoms reported; No dysuria, No frequency, No hematuria Musculoskeletal: No back pain; joint pain, muscle pain Skin: no symptoms reported Psychiatric/Neurological: No Symptoms Reported Reviewed Test Results Reviewed Test Results Lab Laboratory Tests Test 10/24/21 05:12 Range/Units White Blood Count 8.9 4.3-11.0 10^3/uL Red Blood Count 4.08 L 4.30-5.52 10^6/uL Hemoglobin 9.1 L 13.3-17.7 g/dL Hematocrit 30 L 40-54 % Mean Corpuscular Volume 72 L 80-99 fL Mean Corpuscular Hemoglobin 22 L 25-34 pg Mean Corpuscular Hemoglobin Concent 31 L 32-36 g/dL Red Cell Distribution Width 16.8 H 10.0-14.5 % Platelet Count 340 130-400 10^3/uL Mean Platelet Volume 9.4 9.0-12.2 fL Immature Granulocyte % (Auto) 1 % Neutrophils (%) (Auto) 85 H 42-75 % Lymphocytes (%) (Auto) 10 L 12-44 % Monocytes (%) (Auto) 4 0-12 % Eosinophils (%) (Auto) 0 0-10 % Basophils (%) (Auto) 0 0-10 % Neutrophils # (Auto) 7.6 1.8-7.8 10^3/uL Lymphocytes # (Auto) 0.9 L 1.0-4.0 10^3/uL Monocytes # (Auto) 0.4 0.0-1.0 10^3/uL Eosinophils # (Auto) 0.0 0.0-0.3 10^3/uL Basophils # (Auto) 0.0 0.0-0.1 10^3/uL Immature Granulocyte # (Auto) 0.1 0.0-0.1 10^3/uL Sodium Level 136 135-145 MMOL/L Potassium Level 4.2 3.6-5.0 MMOL/L Chloride Level 107 98-107 MMOL/L Carbon Dioxide Level 20 L 21-32 MMOL/L Anion Gap 9 5-14 MMOL/L Blood Urea Nitrogen 16 7-18 MG/DL Creatinine 1.09 0.60-1.30 MG/DL Estimat Glomerular Filtration Rate 70 BUN/Creatinine Ratio 15 Glucose Level 132 H 70-105 MG/DL Calcium Level 9.1 8.5-10.1 MG/DL Corrected Calcium 9.1 8.5-10.1 MG/DL Total Bilirubin 0.4 0.1-1.0 MG/DL Aspartate Amino Transf (AST/SGOT) 27 5-34 U/L Alanine Aminotransferase (ALT/SGPT) 16 0-55 U/L Alkaline Phosphatase 75 40-136 U/L Total Protein 6.5 6.4-8.2 GM/DL Albumin 4.0 3.2-4.5 GM/DL Physical Exam-(CHC) Physical Exam Vital Signs VS - Last 72 Hours, by Label 10/23/21 10/23/21 10/23/21 10/23/21 11:21 15:15 16:17 16:22 Temp 37.1 36.1 36.6 Pulse 83 80 91 Resp 22 B/P (MAP) 94/46 (62) 125/67 143/65 (91) Pulse Ox 97 95 97 97 O2 Delivery Room Air Room Air Room Air Room Air 10/23/21 10/23/21 10/23/21 10/23/21 19:48 20:00 20:48 23:14 Temp 36.2 36.3 Pulse 100 118 102 Resp B/P (MAP) 136/68 (90) 133/68 (89) Pulse Ox 95 96 O2 Delivery Room Air Room Air Room Air 10/24/21 10/24/21 10/24/21 10/24/21 01:00 03:31 06:40 07:19 Temp 36.2 37.2 Pulse 107 100 109 105 Resp 18 B/P (MAP) 160/75 (103) 166/86 (112) Pulse Ox 95 95 O2 Delivery Room Air Room Air 10/24/21 10/24/21 10/24/21 10/24/21 08:00 11:48 12:31 16:01 Temp 36.8 37.1 Pulse 95 98 104 Resp 18 20 B/P (MAP) 135/79 (97) 166/80 (108) Pulse Ox 97 97 O2 Delivery Room Air Room Air Room Air Capillary Refill : Less Than 3 Seconds General Appearance: WD/WN, no apparent distress HEENT: PERRL/EOMI Neck: non-tender, full range of motion, supple Respiratory: chest non-tender, lungs clear, normal breath sounds, no respiratory distress, no accessory muscle use Cardiovascular: normal peripheral pulses, regular rate, rhythm, no edema, no murmur Gastrointestinal: normal bowel sounds, non tender, soft Extremities: normal range of motion, non-tender, normal inspection, no pedal edema, no calf tenderness, normal capillary refill Neurologic/Psychiatric: 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-XII nml as tested, no motor/sensory deficits, alert, normal mood/affect, oriented x 3 Skin: normal color, warm/dry Lymphatic: no adenopathy Short Stay Diagnosis Discharge Diagnosis-Short Stay Admission Diagnosis See problem list Final Discharge Diagnosis See problem list Conclusion Plan See problem list Assessment/Plan Assessment/Plan Admission Status: Observation (1) Dizziness Status: Resolved (2) Hypotension due to medication Status: Resolved Assessment & Plan: - Will d/c imdur, will need close f.u with PCP to adjust medications, encouraged hydration (3) HTN (hypertension) Status: Chronic VIOLETA CHERRY MD Oct 24, 2021 16:28
--- NOTE | 2021-10-24 16:35 | Discharge Summary ---
Discharge [facility] Reconcile Patient Problems Problems Reviewed?: Yes Discharge Medications New, Converted or Re-Newed RX: Other (No new meds) Continued Medications: Albuterol Sulfate (Ventolin Hfa) 18 Gm Hfa.aer.ad 2 PUFF INH Q6H PRN for SHORTNESS OF BREATH, INHALER Allopurinol (Allopurinol) 300 Mg Tablet 150 MG PO DAILY, TAB TAKES 1/2 (300MG) TABLET FILLED 06-27-21 #15/ DAY SUPPLY Amitriptyline HCl (Amitriptyline HCl) 100 Mg Tablet 100 MG PO HS, TAB FILLED 04-10-2021 #90/ DAY SUPPLY Amlodipine Besylate (Amlodipine Besylate) 10 Mg Tablet 10 MG PO DAILY, TAB Aspirin (Aspirin EC) 81 Mg Tablet.dr 81 MG PO HS, TAB FILLED 06-03-2021 #30DAY SUPPLY Buspirone HCl (Buspirone HCl) 15 Mg Tablet 15 MG PO DAILY, TAB Cetirizine HCl (Cetirizine HCl) 10 Mg Tablet 10 MG PO DAILY, TAB Dexlansoprazole (Dexilant) 60 Mg Cap..bp 60 MG PO HS, CAP Duloxetine HCl (Duloxetine HCl) 60 Mg Capsule.dr 60 MG PO HS, CAP Fluticasone/Umeclidin/Vilanter (Trelegy Ellipta 100-62.5-25) 1 Each Blst.w.dev 1 PUFF INH DAILY, EA Gabapentin (Gabapentin) 100 Mg Capsule 100 MG PO HS, CAP Hydrocodone/Acetaminophen (Hydrocodone-Acetamin 5-325 mg) 1 Each Tablet 1 EA PO Q6H PRN for PAIN-MODERATE (5-7), TAB FILLED 09-01-2021 #112/28 DAY SUPPLY Lisinopril (Lisinopril) 40 Mg Tablet 40 MG PO DAILY, TAB FILLED 03-29-2021 #90/ DAY SUPPLY Metoprolol Succinate (Metoprolol Succinate) 50 Mg Tab.er.24h 50 MG PO HS, TAB Montelukast Sodium (Montelukast Sodium) 10 Mg Tablet 10 MG PO HS, TAB Naproxen (Naproxen) 500 Mg Tablet 500 MG PO Q12H, TAB Tizanidine HCl (Tizanidine HCl) 6 Mg Capsule 6 MG PO TID, CAP Discontinued Medications: Isosorbide Mononitrate (Isosorbide Mononitrate ER) 60 Mg Tab 60 MG PO DAILY, #30 TAB Patient Instructions Goal/Follow Up Appt: Fjannette 1-2 weeks with PCP to check blood pressure Activity & Diet Discharge Diet: Low Sodium Diet Activity as Tolerated: Yes MARYANNE LE MD Oct 24, 2021 16:35
[2021-10-24 17:15] VITALS: BP 166/80
[2021-10-24] MEDS ORDERED: PANTOPRAZOLE 40 MG (PROTONIX) TAB PO SCH (21:00)
[2021-10-24] MEDS ORDERED: AMITRIPTYLINE 25 MG (ELAVIL) TAB PO SCH (21:00)
[2021-10-24] MEDS ORDERED: MONTELUKAST 10 MG (SINGULAIR) TAB PO SCH (21:00)
[2021-10-24] MEDS ORDERED: GABAPENTIN 100 MG (NEURONTIN) CAP PO SCH (21:00)
[2021-10-24] MEDS ORDERED: DULoxetine 30 MG (CYMBALTA) CAP PO SCH (21:00)
[2021-10-24] MEDS ORDERED: meTOproloL SUCCINATE 50 MG (TOPROL XL) TAB PO SCH (21:00)
== END 2021-10-24 16:33 | disposition home or self-care (01) ==
LOC: EDUNIT# 11:12 → ER FS 11:14 → UNDOADMOB 14:12 → 4TH 14:12 → UNDOADMOB 16:05 → 4TH 16:05 → UNDODISOB 10-24 17:15
PROVIDERS: ADMIT Family Medicine; ATTEND Family Medicine
DX: R42 Dizziness and giddiness (principal); I10 Essential (primary) hypertension; G89.29 Other chronic pain; Z87.891 Personal history of nicotine dependence; Z79.82 Long term (current) use of aspirin
CPT/HCPCS: 36415; 70450; 71045; 72131; 73030; 80053; 81000; 83605; 83735; 83880; 84484; 85025; 87636

== ENCOUNTER 2021-12-19 15:51 | Emergency (ER) | payer MEDICARE, MEDICAID ==
[2021-12-19 16:12] LABS: BILIRUBIN,URINE NEGATIVE (NEGATIVE); CLARITY,URINE CLEAR; COLOR,URINE YELLOW; GLUCOSE, URINE (UA) NEGATIVE (NEGATIVE); KETONES,URINE NEGATIVE (NEGATIVE); LEUKOCYTE ESTERASE ,URINE NEGATIVE (NEGATIVE); NITRITE,URINE NEGATIVE (NEGATIVE); PROTEIN,URINE NEGATIVE (NEGATIVE)
[2021-12-19] MEDS ORDERED: ONDANSETRON 4 MG/2 ML (SDV) Z0FRAN IVP ONE (16:15)
[2021-12-19] MEDS ORDERED: PANTOPRAZOLE 40 MG (PROTONIX) VIAL IV ONE (16:15)
[2021-12-19] MEDS ORDERED: LACTATED RINGERS 1,000 ML IV ONE (16:15)
[2021-12-19 16:18] LABS: BASOPHILS # (AUTO) 0.1 10^3/uL (0.0-0.1); BASOPHILS % (AUTO) 1 % (0-10); EOSINOPHILS # (AUTO) 0.3 10^3/uL (0.0-0.3); EOSINOPHILS % (AUTO) 2 % (0-10); HEMATOCRIT 37 % (40-54); HEMOGLOBIN 11.1 g/dL (13.3-17.7); LYMPHOCYTES # (AUTO) 2.6 10^3/uL (1.0-4.0); LYMPHOCYTES % (AUTO) 24 % (12-44); MEAN CORPUSCULAR HEMOGLOBIN 21 pg (25-34); MEAN CORPUSCULAR HGB CONC 30 g/dL (32-36); MEAN CORPUSCULAR VOLUME 70 fL (80-99); MEAN PLATELET VOLUME 9.6 fL (9.0-12.2); MONOCYTES % (AUTO) 9 % (0-12); NEUTROPHILS # (AUTO) 6.8 10^3/uL (1.8-7.8); NEUTROPHILS % (AUTO) 63 % (42-75); PLATELET COUNT 423 10^3/uL (130-400); WHITE BLOOD COUNT 10.8 10^3/uL (4.3-11.0)
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
[2021-12-19] MEDS ORDERED: fentaNYL INJ 100 MCG/2 ML AMP IVP ONE ×2 (16:30→17:00)
[2021-12-19 16:35] LABS: ALBUMIN 4.4 GM/DL (3.2-4.5); BILIRUBIN,TOTAL 0.3 MG/DL (0.1-1.0); CALCIUM 9.4 MG/DL (8.5-10.1); CREATININE SERUM 1.02 MG/DL (0.60-1.30); POTASSIUM 4.4 MMOL/L (3.6-5.0); TOTAL PROTEIN 7.4 GM/DL (6.4-8.2)
[2021-12-19 16:36] LABS: BACTERIA,URINE NEGATIVE /HPF; SQUAMOUS EPITHELIAL CELL,UR RARE /HPF; WBC,URINE RARE /HPF
[2021-12-19] MEDS ORDERED: IOHEXOL 300 MG/ML 30 ML (OMNIPAQUE 300) VIAL IV ONE (17:15)
[2021-12-19] MEDS ORDERED: CATHETER FLUSH 10 ML SYR IVP PRN (17:15)
[2021-12-19] MEDS ORDERED: IOHEXOL 350 MG/ML 100 ML (OMNIPAQUE 350) VIAL IV STA (17:35)
--- NOTE | 2021-12-19 17:47 | Diagnostic Imaging Report ---
INDICATION: Abdominal pain and nausea and vomiting. TECHNIQUE: Multiple contiguous axial images were obtained through the abdomen and pelvis after administration of intravenous contrast. Auto Exposure Controls were utilized during the CT exam to meet ALARA standards for radiation dose reduction. All CT scans use one or more of the following dose optimizing techniques: Automated exposure control, MA and/or KvP adjustment based on patient size and exam type or iterative reconstruction. Comparison made with 08/29/2021. FINDINGS: The visualized portions of the lung bases are clear. There were no pleural fluid collections. There is no free intraperitoneal air. There are stable postop changes in both hips with bilateral hip prostheses and stable multilevel lumbar fusion. The liver shows no focal lesion. Gallbladder is surgically absent. Spleen, adrenals, and pancreas are normal. Kidneys bilaterally show cortical scarring as well as a small cyst in the left kidney. There is no hydronephrosis or stone. There is no retroperitoneal mass or adenopathy. There is no ascites or abnormal fluid collection. There is no pelvic mass or lymphadenopathy. There are radiation seed implants in the prostate gland. Visualized bowel loops show no overt bowel obstruction. There is prominent stool throughout the colon. There is no focal bowel wall thickening. IMPRESSION: No acute abnormality visualized in the abdomen or pelvis. Dictated by: Dictated on workstation # [id number]
[2021-12-19] MEDS ORDERED: RX-ONDANSETRON 4 MG ODT (ZOFRAN) PPK #4 PO STA (17:58)
[2021-12-19] MEDS ORDERED: ONDA4TAB11 PO (18:05)
[2021-12-19] MEDS ORDERED: ACHD5005 PO (18:05)
[2021-12-19 18:07] VITALS: BP 178/76
== END 2021-12-19 18:08 | disposition home or self-care (01) ==
LOC: EDUNIT# 15:51 → ER FS 15:52
DX: I88.0 Nonspecific mesenteric lymphadenitis (principal); K59.00 Constipation, unspecified; G47.30 Sleep apnea, unspecified; F17.210 Nicotine dependence, cigarettes, uncomplicated; Z90.49 Acquired absence of other specified parts of digestive tract; Z99.89 Dependence on other enabling machines and devices; Z28.310 Unvaccinated for COVID-19
CPT/HCPCS: 36415; 74177; 80053; 81000; 83690; 85025; 86141; Q9967

== ENCOUNTER 2021-12-20 06:39 | Outpatient (CLI) | payer MEDICARE, MEDICAID ==
[~2021-12-20] VITALS: Ht 175.3 cm; Wt 91.0 kg
== END 2021-12-20 11:18 | disposition home or self-care (01) ==
LOC: PREOP 06:39
PROVIDERS: ATTEND Surgery
DX: Z01.818 Encounter for other preprocedural examination (principal)

== ENCOUNTER 2021-12-24 06:57 | Emergency (ER) | payer MEDICARE, MEDICAID ==
[2021-12-24] MEDS ORDERED: NS IV 1000 ML 1,000 ML IV STA (07:11)
[2021-12-24] MEDS ORDERED: ONDANSETRON 4 MG/2 ML (SDV) Z0FRAN IVP STA (07:11)
[2021-12-24] MEDS ORDERED: fentaNYL INJ 100 MCG/2 ML AMP IVP STA ×2 (07:11→08:11)
[2021-12-24 07:24] LABS: BASOPHILS % (AUTO) 1 % (0-10); EOSINOPHILS # (AUTO) 0.1 10^3/uL (0.0-0.3); EOSINOPHILS % (AUTO) 2 % (0-10); HEMATOCRIT 34 % (40-54); HEMOGLOBIN 10.2 g/dL (13.3-17.7); LYMPHOCYTES # (AUTO) 1.1 10^3/uL (1.0-4.0); LYMPHOCYTES % (AUTO) 12 % (12-44); MEAN CORPUSCULAR HEMOGLOBIN 21 pg (25-34); MEAN CORPUSCULAR HGB CONC 30 g/dL (32-36); MEAN CORPUSCULAR VOLUME 70 fL (80-99); MEAN PLATELET VOLUME 9.2 fL (9.0-12.2); MONOCYTES # (AUTO) 0.6 10^3/uL (0.0-1.0); MONOCYTES % (AUTO) 7 % (0-12); NEUTROPHILS # (AUTO) 6.7 10^3/uL (1.8-7.8); NEUTROPHILS % (AUTO) 78 % (42-75); PLATELET COUNT 268 10^3/uL (130-400); WHITE BLOOD COUNT 8.6 10^3/uL (4.3-11.0)
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
[2021-12-24 07:45] LABS: ALBUMIN 4.2 GM/DL (3.2-4.5); BILIRUBIN,TOTAL 0.3 MG/DL (0.1-1.0); CALCIUM 9.3 MG/DL (8.5-10.1); CREATININE SERUM 1.24 MG/DL (0.60-1.30); POTASSIUM 4.6 MMOL/L (3.6-5.0); TOTAL PROTEIN 7.1 GM/DL (6.4-8.2)
[2021-12-24] MEDS ORDERED: IOHEXOL 350 MG/ML 100 ML (OMNIPAQUE 350) VIAL IV ONE (07:45)
[2021-12-24] MEDS ORDERED: HOLD METFORMIN - RECEIVED CONTRAST 20 ML VIAL IV SCH (07:45)
[2021-12-24] MEDS ORDERED: NS 100 ML (IVPB) BAG IV ONE (07:45)
[2021-12-24] MEDS ORDERED: CATHETER FLUSH 10 ML SYR IV PRN (07:45)
[2021-12-24 08:14] LABS: BILIRUBIN,URINE NEGATIVE (NEGATIVE); CLARITY,URINE CLEAR; COLOR,URINE YELLOW; GLUCOSE, URINE (UA) NEGATIVE (NEGATIVE); KETONES,URINE NEGATIVE (NEGATIVE); LEUKOCYTE ESTERASE ,URINE NEGATIVE (NEGATIVE); NITRITE,URINE NEGATIVE (NEGATIVE); PH,URINE 6.5 (5-9); PROTEIN,URINE NEGATIVE (NEGATIVE)
[2021-12-24 08:17] LABS: BACTERIA,URINE NEGATIVE /HPF
--- NOTE | 2021-12-24 08:19 | Diagnostic Imaging Report ---
PROCEDURE: CT abdomen and pelvis with contrast. TECHNIQUE: Multiple contiguous axial images were obtained through the abdomen and pelvis after administration of intravenous contrast. Auto Exposure Controls were utilized during the CT exam to meet ALARA standards for radiation dose reduction. All CT scans use one or more of the following dose optimizing techniques: automated exposure control, MA and/or KvP adjustment based on patient size and exam type or iterative reconstruction. DATE: December 24, 2021. COMPARISON: CT abdomen and pelvis December 19, 2021. INDICATION: 76-year-old female, abdominal pain, nausea, and vomiting. History of prostate cancer. FINDINGS: The visualized portions of the lung bases are clear. The heart is not enlarged. There is no identified pericardial effusion. The liver is unremarkable in size and contour. There is no identified liver lesion. The main, right, and left portal veins are patent. The gallbladder is surgically absent. There is no intrahepatic or extrahepatic bile duct dilation. Unremarkable appearance of the pancreas. The spleen is normal in size. There is a very small amount of fluid attenuation adjacent to the spleen which is unchanged since the prior study and perhaps best demonstrated on axial image 29 and adjacent sequential images. There is no visible splenic laceration. The adrenal glands are unremarkable. There is a low-attenuation left renal lesion on axial image 97 which is consistent with a benign cyst. There is an exophytic 6 mm right renal lesion on axial image 74 which is too small to characterize. The urinary collecting systems are not distended. There is no identified renal or ureteral stone. There is mild diffuse urinary bladder wall thickening which may relate to cystitis and/or chronic outlet obstruction. There are high attenuation foci near the expected location of the prostate which is likely procedurally related. There is mild diverticulosis without evidence of acute diverticulitis. There is no evidence of acute appendicitis. There is no free intraperitoneal air. There is no drainable fluid collection. There is no free fluid in the abdomen or pelvis. There are atherosclerotic calcifications. There is no identified abnormally enlarged lymph node in the abdomen or pelvis which meets CT size criteria for adenopathy. There are bilateral hip prostheses. There are post operative changes of the spine. There are multilevel degenerative changes of the spine. There is no identified acute bony abnormality. IMPRESSION: 1. Very small amount of fluid immediately adjacent to the spleen without visible splenic laceration. This is unchanged since the comparison study. There is no splenomegaly. 2. Mild diffuse urinary bladder wall thickening, likely relating to cystitis and/or chronic outlet obstruction. 3. No additional identified potential acute abnormality in the abdomen or pelvis. Dictated by: Dictated on workstation # [id number]
[2021-12-24] MEDS ORDERED: ONDA4TAB11 PO (09:25)
[2021-12-24 09:30] VITALS: BP 171/78
== END 2021-12-24 09:31 | disposition home or self-care (01) ==
LOC: EDUNIT# 06:57 → ER FS 07:00
DX: K59.00 Constipation, unspecified (principal); R11.2 Nausea with vomiting, unspecified; G47.30 Sleep apnea, unspecified; Z90.49 Acquired absence of other specified parts of digestive tract; Z99.89 Dependence on other enabling machines and devices; Z28.310 Unvaccinated for COVID-19
CPT/HCPCS: 36415; 74177; 80053; 81000; 83605; 83690; 85025; 96361; 96374; 96375; 96376; Q9967

== ENCOUNTER 2021-12-27 03:46 | Emergency (ER) | payer MEDICARE, MEDICAID ==
[~2021-12-27] VITALS: Ht 175.2 cm; Wt 91.0 kg
[2021-12-27] MEDS ORDERED: ANTACID SUSP 30 ML UDC (MYLANTA) PO ONE (04:15)
[2021-12-27] MEDS ORDERED: FAMOTIDINE 20 MG (PEPCID) TABLET PO STA (04:15)
[2021-12-27] MEDS ORDERED: LIDOCAINE 2% VISCOUS 15 ML UDC PO ONE (04:15)
[2021-12-27] MEDS ORDERED: DROPERIDOL 5 MG/2 ML (INAPSINE) ED ONLY! IV ONE (04:15)
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
[2021-12-27 04:17] LABS: BASOPHILS # (AUTO) 0.1 10^3/uL (0.0-0.1); BASOPHILS % (AUTO) 1 % (0-10); EOSINOPHILS # (AUTO) 0.2 10^3/uL (0.0-0.3); EOSINOPHILS % (AUTO) 3 % (0-10); HEMATOCRIT 34 % (40-54); HEMOGLOBIN 10.2 g/dL (13.3-17.7); LYMPHOCYTES # (AUTO) 1.6 10^3/uL (1.0-4.0); LYMPHOCYTES % (AUTO) 23 % (12-44); MEAN CORPUSCULAR HEMOGLOBIN 21 pg (25-34); MEAN CORPUSCULAR HGB CONC 30 g/dL (32-36); MEAN CORPUSCULAR VOLUME 69 fL (80-99); MEAN PLATELET VOLUME 9.6 fL (9.0-12.2); MONOCYTES # (AUTO) 0.6 10^3/uL (0.0-1.0); MONOCYTES % (AUTO) 10 % (0-12); NEUTROPHILS # (AUTO) 4.3 10^3/uL (1.8-7.8); NEUTROPHILS % (AUTO) 64 % (42-75); PLATELET COUNT 296 10^3/uL (130-400); WHITE BLOOD COUNT 6.7 10^3/uL (4.3-11.0)
[2021-12-27 04:45] LABS: BILIRUBIN,TOTAL 0.3 MG/DL (0.1-1.0); CALCIUM 9.3 MG/DL (8.5-10.1); CREATININE SERUM 1.1 MG/DL (0.60-1.30); POTASSIUM 4.4 MMOL/L (3.6-5.0)
[2021-12-27 04:46] LABS: ALBUMIN 3.9 GM/DL (3.2-4.5); TOTAL PROTEIN 6.8 GM/DL (6.4-8.2)
[2021-12-27 05:00] VITALS: BP 168/79
[2021-12-27] MEDS ORDERED: METHYLNALTREXONE 12 MG/0.6 ML (RELISTOR) VIAL SQ ONE (05:00)
--- NOTE | 2021-12-27 06:00 | Diagnostic Imaging Report ---
INDICATION: Abdominal pain and vomiting KUB at 4:47 AM There are postoperative changes from fusion laminectomy of the lumbar spine. Patient has had bilateral hip arthroplasties. There is large amount of stool in the colon. Bowel gas pattern is normal. IMPRESSION: Fecal stasis consistent with constipation Dictated by: Dictated on workstation # [id number]
== END 2021-12-27 05:00 | disposition home or self-care (01) ==
LOC: EDUNIT# 03:46 → ER FS 03:49
DX: R10.9 Unspecified abdominal pain (principal); G47.30 Sleep apnea, unspecified; Z90.49 Acquired absence of other specified parts of digestive tract; Z99.89 Dependence on other enabling machines and devices; Z28.310 Unvaccinated for COVID-19
CPT/HCPCS: 36415; 74019; 80053; 83605; 83690; 85025; 86141

== ENCOUNTER 2022-01-08 15:29 | Emergency (ER) | payer MEDICARE, MEDICAID ==
[2022-01-08 15:55] LABS: BASOPHILS # (AUTO) 0.1 10^3/uL (0.0-0.1); BASOPHILS % (AUTO) 0 % (0-10); EOSINOPHILS # (AUTO) 0.1 10^3/uL (0.0-0.3); EOSINOPHILS % (AUTO) 0 % (0-10); HEMATOCRIT 32 % (40-54); HEMOGLOBIN 9.9 g/dL (13.3-17.7); LYMPHOCYTES # (AUTO) 0.9 10^3/uL (1.0-4.0); LYMPHOCYTES % (AUTO) 5 % (12-44); MEAN CORPUSCULAR HEMOGLOBIN 21 pg (25-34); MEAN CORPUSCULAR HGB CONC 31 g/dL (32-36); MEAN CORPUSCULAR VOLUME 68 fL (80-99); MEAN PLATELET VOLUME 9.3 fL (9.0-12.2); MONOCYTES # (AUTO) 0.9 10^3/uL (0.0-1.0); MONOCYTES % (AUTO) 5 % (0-12); NEUTROPHILS # (AUTO) 15.6 10^3/uL (1.8-7.8); NEUTROPHILS % (AUTO) 89 % (42-75); PLATELET COUNT 491 10^3/uL (130-400); WHITE BLOOD COUNT 17.6 10^3/uL (4.3-11.0)
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
[2022-01-08 16:08] LABS: ANISOCYTOSIS SLIGHT; BAND NEUTROPHILS 2 %; HYPOCHROMASIA MODERATE; LYMPHOCYTES % (MANUAL) 8 %; MICROCYTOSIS MODERATE; MONOCYTES % (MANUAL) 6 %; NEUTROPHILS % (MANUAL) 84 %
[2022-01-08 16:17] LABS: ALBUMIN 4.1 GM/DL (3.2-4.5); BILIRUBIN,TOTAL 0.5 MG/DL (0.1-1.0); CALCIUM 9.4 MG/DL (8.5-10.1); CREATININE SERUM 1.27 MG/DL (0.60-1.30); POTASSIUM 4.3 MMOL/L (3.6-5.0); TOTAL PROTEIN 6.8 GM/DL (6.4-8.2)
--- NOTE | 2022-01-08 16:24 | Diagnostic Imaging Report ---
Indication: Shoulder pain findings 2 view left shoulder demonstrates no glenohumeral or acromioclavicular fracture dislocation or joint separation. Is degenerative changes the glenohumeral joint with subcortical cyst formation some old appearing left rib deformities which appeared healed and chronic compression glenohumeral arthritis no acute appearing abnormality Dictated by: Dictated on workstation # [id number]
--- NOTE | 2022-01-08 16:27 | Diagnostic Imaging Report ---
INDICATION: Pain. TECHNIQUE: An AP pelvis and two-views of the left hip were performed. FINDINGS: There are bilateral total hip replacements as well as lumbar instrumentation. No bony avulsion or other fracture pattern. Anchors project over the medial pubic bones. The pelvic bowel gas pattern is unremarkable. IMPRESSION: Good appearance of the bilateral total hip replacements. No acute abnormality is identified. No asymmetry. Dictated by: Dictated on workstation # [id number]
--- NOTE | 2022-01-08 16:28 | Diagnostic Imaging Report ---
INDICATION: Pain. FINDINGS: Three-view left knee shows total knee arthroplasty. No fracture, dislocation, or opaque loose body. IMPRESSION: Total knee, otherwise negative. Dictated by: Dictated on workstation # [id number]
[2022-01-08] MEDS ORDERED: KETOROLAC 30 MG/ML VIAL IVP ONE (16:30)
[2022-01-08] MEDS ORDERED: fentaNYL INJ 100 MCG/2 ML AMP IVP PRN (16:45)
[2022-01-08] MEDS ORDERED: CEFEPIME INJECTION 1,000 MG in NS (IVPB) 50 ML IV ONE (16:45)
[2022-01-08] MEDS ORDERED: NS IV 1000 ML 1,000 ML IV SCH (16:45)
[2022-01-08 16:56] LABS: INR 1.1 (0.8-1.4); PROTHROMBIN TIME PATIENT 14.8 SEC (12.2-14.7)
--- NOTE | 2022-01-08 17:07 | Diagnostic Imaging Report ---
CHEST 1 VIEW, AP/PA ONLY Indication: Sepsis Comparison: 10/23/2021 Findings: No focal airspace disease in the visualized lungs. Please note that the posterior lower lobes are poorly evaluated by portable radiography. No pleural effusion or pneumothorax. Normal cardiomediastinal silhouette. Multiple old healed left-sided rib fractures are unchanged. Impression: 1. No acute cardiopulmonary process by portable radiography. Dictated by: Dictated on workstation # [id number]
[2022-01-08] MEDS ORDERED: fentaNYL INJ 100 MCG/2 ML AMP IVP ONE (18:15)
[2022-01-08 18:37] VITALS: BP 130/74
== END 2022-01-08 18:37 | disposition home or self-care (01) ==
LOC: EDUNIT# 15:29 → ER 15:29
DX: M25.562 Pain in left knee (principal); M25.552 Pain in left hip; M25.512 Pain in left shoulder; D72.829 Elevated white blood cell count, unspecified; R79.82 Elevated C-reactive protein (CRP); Z87.891 Personal history of nicotine dependence; Z96.653 Presence of artificial knee joint, bilateral; Z96.643 Presence of artificial hip joint, bilateral; Z96.611 Presence of right artificial shoulder joint; Z96.612 Presence of left artificial shoulder joint; Z88.5 Allergy status to narcotic agent; Z28.310 Unvaccinated for COVID-19
CPT/HCPCS: 36415; 71045; 73030; 73562; 80053; 83605; 84484; 85007; 85027; 85610; 85730; 86141; 87040; 96361; 96365; 96375; 96376

== ENCOUNTER 2022-01-17 09:36 | Day surgery (SDC) | payer MEDICARE, MEDICAID ==
[~2022-01-17] VITALS: Ht 175 cm; Wt 91.6 kg
[2022-01-17] MEDS ORDERED: LACTATED RINGERS 1,000 ML IV STA (09:42)
[2022-01-17] MEDS ORDERED: HURRICAINE EXT TUBE (BENZOCAINE) XX PRN (09:45)
[2022-01-17] MEDS ORDERED: LIDOCAINE JELLY 2% 6 ML SYRINGE MM PRN (09:45)
[2022-01-17 09:55] VITALS: BP 153/98
[2022-01-17] MEDS ORDERED: ONDANSETRON 4 MG (ZOFRAN) ORAL DISSOLVE TAB PO PRN (11:15)
[2022-01-17] MEDS ORDERED: ONDANSETRON 4 MG/2 ML (SDV) Z0FRAN IVP PRN (11:15)
--- NOTE | 2022-01-17 11:15 | Progress Note-Pre Operative ---
Pre-Operative Progress Note Date of Available H&P: Jan 17, 2022 Date H&P Reviewed: Jan 17, 2022 Time H&P Reviewed: 11:00 History & Physical: No changes noted Pre-Operative Diagnosis: GERD,PUD KAUSHIK SHEN MD Jan 17, 2022 11:15
--- NOTE | 2022-01-17 11:16 | Discharge Inst-Surgical ---
D/C Lap Instructions-HERMELINDA Follow Up Activity as tolerated High Fiber Diet 25g or more per day Avoid Alcohol, Caffeine, Spicy [place] and Acid foods. Drink 64 fluid oz or more of fluids per day. Symptoms to Report: Fever over 101 degree F, Nausea/Vomiting If any problems/questions: Contact your physician or go to Emergency Room KAUSHIK SHEN MD Jan 17, 2022 11:16
[2022-01-17] MEDS ORDERED: PROPOFOL INJECTION 50 ML IV ONE (13:01)
[2022-01-17 13:20] VITALS: BP 120/69
[2022-01-17 13:25] VITALS: BP 129/70
[2022-01-17 13:30] VITALS: BP 132/70
--- NOTE | 2022-01-17 13:46 | Progress Note-Post Operative ---
Post-Operative Progess Note Surgeon (s)/[employer] (s) Surgeon KAUSHIK SHEN MD [employer]: none Pre-Operative Diagnosis GERD,PUD Post-Operative Diagnosis reflux esophagitis(grade B), small recurrent HH(2cm), moderate gastritis. small prepyloric ulcer(4mm). Procedure & Operative Findings Date of Procedure 01/17/22 Procedure Performed/Findings EGD with bx. Anesthesia Type mac Estimated Blood Loss Estimated blood loss (mL): minimal Specimens/Packing Specimens Removed ge jxn, antrum KAUSHIK SHEN MD Jan 17, 2022 13:46
[2022-01-17 14:00] VITALS: BP 170/94
[2022-01-17 14:05] VITALS: BP 170/94
--- NOTE | 2022-01-17 22:04 | OPERATIVE REPORT ---
DATE OF SERVICE: 01/17/2022 ATTENDING PRIMARY PHARMACOGENETICIST: [facility]. PREOPERATIVE DIAGNOSES: History of significant gastroesophageal reflux disease and peptic ulcer disease. POSTOPERATIVE DIAGNOSES: Reflux esophagitis, [place] grade B, small recurrent hiatal hernia 2 cm in size, the area of inflammation and bleeding that he had had along a fold from his previous antireflux procedure is now gone, moderate gastritis with a small prepyloric ulcer. PROCEDURE: EGD with biopsy. SURGEON: Kaushik Shen MD. ANESTHESIA: Monitored anesthesia care. ESTIMATED BLOOD LOSS: Minimal. FINDINGS: Reflux esophagitis, [place] grade B, small recurrent hiatal hernia 2 cm in size, the area of inflammation and bleeding that he had had along a fold from his previous antireflux procedure is now gone, moderate gastritis with a small prepyloric ulcer. DISPOSITION: The patient tolerated the procedure well. INDICATIONS: The patient is a 76-year-old male with a longstanding history of gastroesophageal reflux disease and peptic ulcer disease. We had done his first EGD in 2013 and he had had a previous antireflux procedure and along one of the folds of the cardia of the stomach was an area of ulceration and biopsied multiple times and found to be benign. This area; however, was very irritated and was sometimes bleed. Again, he was found to have a recurrent hiatal hernia as well as on his last EGD, a prepyloric ulcer 5 mm in size. He reports that he has improved; however, continues to have some issues with epigastric burning sensation as well as crampy pain. DESCRIPTION OF PROCEDURE: The patient was brought to the endoscopy suite, laid in left lateral decubitus position. After adequate IV pain and sedative medications and monitored anesthesia care, the mouthpiece was applied. The endoscope was placed in the mouth, visualizing the pharynx and hypopharyngeal region. Vocal cords, epiglottis and vallecula identified and appeared to be normal. The endoscope was then gently intubated the esophageal opening and esophagus insufflated. Endoscope was then advanced to the first, second and third portion of esophagus at the level of the GE junction, a reflux esophagitis, [place] grade B identified. No ulcers or strictures identified in this region. A biopsy was taken with forceps with visualization of good hemostasis. The endoscope was then advanced into the stomach and endoscope retroflexed, visualizing a small recurrent hiatal hernia approximately 2 cm in size. The area of irritated gastric cardia fold that we had seen multiple times is now gone and completely healed. There is a moderate severity gastritis and again a small prepyloric ulcer approximately 5 mm in size. This was biopsied with forceps with visualization of good hemostasis. The endoscope was then advanced to the pylorus and the first and second portion of the duodenum, which appeared normal with no distal obstructions. The endoscope was then slowly withdrawn while taking a second look and suctioning of residual air with no additional findings. The patient tolerated the procedure well. We will recommend the necessary lifestyle and dietary accommodation including avoidance of caffeinated beverages as well as spicy, greasy and acidic foods. He is already on Dexilant as well as Pepcid; however, we will add another acid junior copywriter with omeprazole 40 mg daily. He also needs to do the necessary dietary changes, which would include small and more frequent meals, avoidance of eating at night as well as head elevation while lying supine. Job ID: [id number] DocumentID: [id number] Dictated Date: 01/17/2022 13:22:38 Digital Librarian Date: 01/17/2022 22:03:58 Dictated By: KAUSHIK SHEN MD
--- NOTE | 2022-01-22 15:35 | Anesthesia-General Post-Op ---
MAC Significant Intra-Op Events Notes postop addendum for mac anesthesia on 01-17-22 at 1400 Patient Condition Mental Status/LOC: Same as Preop Cardiovascular: Satisfactory Nausea/Vomiting: Absent Respiratory: Satisfactory Pain: Controlled Complications: Absent Post Op Complications Complications None Follow Up Care/Instructions Patient Instructions None needed. Anesthesiology Discharge Order Discharge Order Patient is doing well, no complaints, stable vital signs, no apparent adverse anesthesia problems. No complications reported per nursing. VELIA ISLAS IMAGE EDITOR Jan 22, 2022 15:35
== END 2022-01-17 14:05 | disposition home or self-care (01) ==
LOC: ENDO 09:36
PROVIDERS: ATTEND Surgery
DX: K29.00 Acute gastritis without bleeding (principal); K29.50 Unspecified chronic gastritis without bleeding; K21.00 Gastro-esophageal reflux disease with esophagitis, without bleeding; K44.9 Diaphragmatic hernia without obstruction or gangrene; Z87.11 Personal history of peptic ulcer disease; Z79.899 Other long term (current) drug therapy; Z87.891 Personal history of nicotine dependence

== ENCOUNTER 2022-10-13 20:00 | Observation (INO) | payer MEDICARE, MEDICAID ==
[~2022-10-13] VITALS: Ht 175.3 cm; Wt 83.3 kg
[~2022-10-13 20:00] MED LIST changes: +ALBU8.5H6 IH; -RT-ALBUINH IH
[2022-10-13] MEDS ORDERED: hydrALAZINE (APESOLINE) 20 MG/ML VIAL IV ONE (20:15)
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
[2022-10-13 20:28] LABS: BASOPHILS # (AUTO) 0.1 10^3/uL (0.0-0.1); BASOPHILS % (AUTO) 1 % (0-10); EOSINOPHILS # (AUTO) 0.2 10^3/uL (0.0-0.3); EOSINOPHILS % (AUTO) 2 % (0-10); HEMATOCRIT 40 % (40-54); HEMOGLOBIN 12.8 g/dL (13.3-17.7); LYMPHOCYTES # (AUTO) 1.8 10^3/uL (1.0-4.0); LYMPHOCYTES % (AUTO) 25 % (12-44); MEAN CORPUSCULAR HEMOGLOBIN 27 pg (25-34); MEAN CORPUSCULAR HGB CONC 32 g/dL (32-36); MEAN CORPUSCULAR VOLUME 84 fL (80-99); MEAN PLATELET VOLUME 9.6 fL (9.0-12.2); MONOCYTES # (AUTO) 0.6 10^3/uL (0.0-1.0); MONOCYTES % (AUTO) 8 % (0-12); NEUTROPHILS # (AUTO) 4.6 10^3/uL (1.8-7.8); NEUTROPHILS % (AUTO) 63 % (42-75); PLATELET COUNT 204 10^3/uL (130-400); WHITE BLOOD COUNT 7.3 10^3/uL (4.3-11.0)
[2022-10-13 20:43] LABS: PROTHROMBIN TIME PATIENT 13.8 SEC (12.2-14.7)
--- NOTE | 2022-10-13 20:50 | Diagnostic Imaging Report ---
INDICATION: Hypertension and headache. TECHNIQUE: Multiple contiguous axial images were obtained through the brain without the use of intravenous contrast. Auto Exposure Controls were utilized during the CT exam to meet ALARA standards for radiation dose reduction. Comparison made with 10/23/2021 There are mild atrophic changes. There are no extra-axial fluid collections. No intracranial hemorrhage. No intracranial mass or mass effect. No midline shift. The ventricles are normal in size and position. There were no focal parenchymal abnormalities in the brain. Calvarial windows are unremarkable. IMPRESSION: Mild atrophic changes with no acute intracranial abnormality. Dictated by: Dictated on workstation # [id number]
[2022-10-13 20:53] LABS: ALANINE AMINOTRANSFERASE 11 U/L (0-55); ALKALINE PHOSPHATASE 75 U/L (40-136); BILIRUBIN,TOTAL 0.5 MG/DL (0.1-1.0); BUN/CREATININE RATIO 10; CALCIUM 9.2 MG/DL (8.5-10.1); CARBON DIOXIDE 24 MMOL/L (21-32); CHLORIDE 102 MMOL/L (98-107); CREATININE SERUM 1.09 MG/DL (0.60-1.30); GFR ESTIMATED 70; GLUCOSE 125 MG/DL (70-105); MAGNESIUM 1.4 MG/DL (1.6-2.4); POTASSIUM 3.8 MMOL/L (3.6-5.0); SODIUM 136 MMOL/L (135-145); TOTAL PROTEIN 6.3 GM/DL (6.4-8.2)
--- NOTE | 2022-10-13 20:53 | Diagnostic Imaging Report ---
INDICATION: Hypertension and headache Frontal chest obtained at 0833 p.m. Compared to 01/08/2022 Heart is normal in size. Aorta is tortuous. There is no focal infiltrate or pneumothorax or pleural fluid. Loop recorder seen over the left chest wall. IMPRESSION: Tortuous aorta. No focal infiltrate or pneumothorax or pleural fluid. Dictated by: Dictated on workstation # [id number]
[2022-10-13] MEDS ORDERED: LABETALOL HCL 20 MG/4 ML VIAL IV ONE (21:15)
[2022-10-13] MEDS ORDERED: MAGNESIUM 1 GM/100 ML IVPB 100 ML IV ONE (21:15)
[2022-10-13] MEDS ORDERED: ASPIRIN 81 MG CHEW (CHILDREN'S ASA) PO ONE (21:30)
[2022-10-13] MEDS ORDERED: diphenhydrAMINE 50 MG/ML INJ (BENADRYL) IVP PRN (22:15)
[2022-10-13] MEDS ORDERED: NS IV 500 ML 500 ML IV PRN (22:15)
[2022-10-13] MEDS ORDERED: NALOXONE 0.4 MG/ML 1 ML (NARCAN) VIAL IV PRN (22:15)
[2022-10-13] MEDS ORDERED: ACETAMINOPHEN 325 MG TABLET PO PRN (22:15)
[2022-10-13] MEDS ORDERED: diphenhydrAMINE 25 MG TAB (BENADRYL) PO PRN (22:15)
[2022-10-13] MEDS ORDERED: ONDANSETRON 4 MG (ZOFRAN) ORAL DISSOLVE TAB PO PRN (22:15)
[2022-10-13] MEDS ORDERED: MILK OF MAGNESIA 400 MG/5 ML 30 ML UDC PO PRN (22:15)
[2022-10-13] MEDS ORDERED: MELATONIN 3 MG TABLET PO PRN (22:15)
[2022-10-13] MEDS ORDERED: ALPRAZolam 0.5 MG (XANAX) TAB PO PRN (22:15)
[2022-10-13] MEDS ORDERED: NITROGLYCERIN 0.4 MG SL TABS BTL 25'S SL PRN (22:15)
[2022-10-13] MEDS ORDERED: ONDANSETRON 4 MG/2 ML (SDV) Z0FRAN IVP PRN (22:15)
[2022-10-13] MEDS ORDERED: PATIENT MAY USE OWN MEDS, ALL PO SCH (22:15)
[2022-10-13] MEDS ORDERED: LACTULOSE SYRUP 10GM/15ML (ENULOSE) 30ML UDC PO PRN (22:15)
[2022-10-13] MEDS ORDERED: ONDANSETRON 4 MG/2 ML (SDV) Z0FRAN IV PRN (22:15)
[2022-10-13] MEDS ORDERED: polyethylene glycoL POWDER 17 GM (MIRALAX) PACK PO PRN (22:15)
[2022-10-13] MEDS ORDERED: ANTACID SUSP 30 ML UDC (MYLANTA) PO PRN (22:15)
[2022-10-13] MEDS ORDERED: CALCIUM CARBONATE 500 MG (TUMS) TAB.CHEW PO PRN (22:15)
[2022-10-13] MEDS ORDERED: BISACODYL 10 MG SUPP (DULCOLAX) PR PRN (22:15)
[2022-10-13] MEDS ORDERED: niCARdipine IV PYXIS DRIP KIT = 50 MG X 2 VIALS ONE (22:37)
[2022-10-13] MEDS ORDERED: HYDROmorphone 2 MG/ML VIAL (DILAUDID) ONE (22:39)
[2022-10-13] MEDS ORDERED: NS (IVPB) 250 ML ONE (22:40)
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
[2022-10-13] MEDS: HYDROmorphone 2 MG/ML VIAL (DILAUDID) IV PRN (22:50)
[2022-10-13] MEDS: niCARdipine IV 50 MG in NS (IVPB) 230 ML IV SCH (22:50)
[2022-10-13] MEDS ORDERED: ALPRAZolam 0.5 MG (XANAX) TAB ONE (23:08)
[2022-10-13 23:18] VITALS: BP 221/121
[2022-10-13] MEDS ORDERED: RT-ALBUTEROL SULF 2.5 MG/3 ML PRE-MIX VIAL INH PRN (23:45)
[2022-10-14] MEDS: HYDROmorphone 2 MG/ML VIAL (DILAUDID) IV PRN ×6 (01:16→20:23)
[2022-10-14 05:16] LABS: BASOPHILS # (AUTO) 0.1 10^3/uL (0.0-0.1); BASOPHILS % (AUTO) 1 % (0-10); EOSINOPHILS # (AUTO) 0.2 10^3/uL (0.0-0.3); EOSINOPHILS % (AUTO) 3 % (0-10); HEMATOCRIT 41 % (40-54); HEMOGLOBIN 13.1 g/dL (13.3-17.7); LYMPHOCYTES # (AUTO) 1.9 10^3/uL (1.0-4.0); LYMPHOCYTES % (AUTO) 31 % (12-44); MEAN CORPUSCULAR HEMOGLOBIN 27 pg (25-34); MEAN CORPUSCULAR HGB CONC 32 g/dL (32-36); MEAN CORPUSCULAR VOLUME 84 fL (80-99); MEAN PLATELET VOLUME 9.7 fL (9.0-12.2); MONOCYTES # (AUTO) 0.6 10^3/uL (0.0-1.0); MONOCYTES % (AUTO) 10 % (0-12); NEUTROPHILS # (AUTO) 3.3 10^3/uL (1.8-7.8); NEUTROPHILS % (AUTO) 55 % (42-75); PLATELET COUNT 205 10^3/uL (130-400)
[2022-10-14 05:29] LABS: ALBUMIN 3.9 GM/DL (3.2-4.5); BILIRUBIN,TOTAL 0.4 MG/DL (0.1-1.0); CALCIUM 9.4 MG/DL (8.5-10.1); CREATININE SERUM 0.88 MG/DL (0.60-1.30); MAGNESIUM 1.8 MG/DL (1.6-2.4); PHOSPHORUS 3.8 MG/DL (2.3-4.7); POTASSIUM 3.7 MMOL/L (3.6-5.0); TOTAL PROTEIN 6.4 GM/DL (6.4-8.2)
[2022-10-14] MEDS: inSUlin ASPART (NovoLOG) 1 UNIT/0.01 ML (CHARGE PER UNIT) SC SCH ×4 (06:28→20:24)
[2022-10-14] MEDS: KCL 20 MEQ TAB (K-DUR) PO SCH (06:28)
[2022-10-14] MEDS: MAGNESIUM 1 GM/100 ML IVPB 100 ML IV SCH ×3 (06:28→06:38)
[2022-10-14] MEDS: POTASSIUM CL 10MEQ/50ML IVPB 50 ML IV SCH (06:28)
--- NOTE | 2022-10-14 07:19 | History & Physical ---
History of Present Illness HPI/Chief Complaint Chief complaint: Hypertensive urgency with chest pain HPI: This is a 77-year-old male with a history of hypertension who has been having elevated blood pressure readings for a while. He had made an appointment with Dr. Franz scheduled for January. ER assessed his blood pressure to be 224/120 requiring Cardene drip and ICU admission. Son at the bedside. Denies any significant chest pain at this current time. Cardiology consulted. We will transition to oral antihypertensive medication to try to wean Cardene drip. Source: patient Exam Limitations: no limitations Date Seen 10/14/22 Time Seen by a Provider: 11:00 Attending Physician [place] PCP Admitting Physician: Bianca Nunn DO Attending Physician: Bianca Nunn DO Referring Physician Date of Admission Oct 13, 2022 at 22:14 Home Medications & Allergies Home Medications Reviewed patient Home Medication Reconciliation performed by pharmacy medication reconciliations dialysis technician and/or nursing. Patients Allergies have been reviewed. Allergies Allergies Coded Allergies morphine (Verified Allergy, Severe, HIVES, N/V,pt has rec. Lortab in the past w/o issue, 10/23/21) Past [id number] Hx Past Med/Social Hx: Reviewed Nursing Past Med/Soc Hx, Reviewed and Corrections made Patient Social History Marrital Status: single Employed/Student: retired Alcohol Use: Denies Use Smoking Status: Former Smoker Former Smoker, Quit: Nov 06, 1990 Type Used: Cigarettes 2nd Hand Smoke Exposure: No Recent Hopitalizations: No Immunizations Up To Date Tetanus Booster (TDap): Unknown Pediatric: No Date of Pneumonia Vaccine: Nov 25, 2016 Date of Influenza Vaccine: Jan 12, 2019 Seasonal Allergies Seasonal Allergies: Yes Past Medical History Surgeries: Abdominal, Cardiac, Eye Surgery, Gallbladder, Joint Replacement, Orthopedic, Transurethral Resection Currently Using CPAP: Yes Currently Using BIPAP: No Cardiac: Coronary Artery Disease, High Cholesterol, Hypertension, Valvular Heart Disease Neurological: Traumatic Brain Injury Reproductive: No Sexually Transmitted Disease: No HIV/AIDS: No Genitourinary: Benign Prostatic Hyperpl Gastrointestinal: Gastroesophageal Reflux, Gastrointestinal Bleed, Chronic Constipation, Polyps, Hiatal Hernia Musculoskeletal: Degenerate Disk Disease, Arthritis, Back Injury, Chronic Back Pain, Gout Endocrine: Diabetes, Non-Insulin dep Loss of Vision: Bilateral Hearing Impairment: Denies Cancer: Prostate Did You Recieve Any Treatments: Yes What Type of Treatment Did You: Radiation, Surgical Intervention Psychosocial: Anxiety, Depression History of Blood Disorders: No Adverse Reaction to Blood Workman: No Family History Cardiovascular disease 19 MOTHER Myocardial infarction 19 MOTHER, Onset:62 G8 SISTER Heart Disease SOCIAL HISTORY: -SMOKING--QUIT 25 YEARS AGO -ETOH-DENIES USE -DRUGS-DENIES USE Review of Systems Constitutional: see HPI, dizziness Cardiovascular: chest pain Physical Exam Physical Exam Vital Signs Vital Signs - First Documented 10/13/22 10/13/22 10/13/22 10/14/22 20:11 22:02 23:18 11:26 Temp 36.8 Pulse 84 Resp 17 B/P (MAP) 221/121 (154) Pulse Ox 95 O2 Delivery Room Air O2 Flow Rate 0.00 FiO2 21 Capillary Refill : Less Than 3 Seconds Height, Weight, BMI Height: 5'9.00" Weight: 172lbs. 5.0oz. 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 Assessment/Plan Admission Diagnosis Assessment: Hypertensive urgency Chest pain Elevated troponin Gout Chronic kidney disease Plan: Supportive care Lisandra alvarado ICU appreciated Cardiology appreciated Admission Status: Observation BIANCA NUNN DO Oct 14, 2022 07:19
--- NOTE | 2022-10-14 08:13 | Tele-ICU Progress Note ---
Progress Note video rounds completed 77 y/o male admited with uncontrolled HTN Started on cardene drip BP this am is 157/77 No new issues PLAN: convert to PO BP meds, wean and DC cardene Time spent on review of records, labs: 15 minutes Focused Exam Height, Weight, BMI Height: 5'9.00" Weight: 172lbs. 5.0oz. 78.596490ga; 28.53 BMI Method:Stated Labs Laboratory Tests 10/13/22 20:18 10/14/22 05:00 Results Results/Procedures Labs Laboratory Tests 10/13/22 20:18 10/14/22 05:00 Patient resulted labs reviewed. Results Labs Labs Laboratory Tests 10/13/22 20:18: White Blood Count 7.3, Red Blood Count 4.68, Hemoglobin 12.8L, Hematocrit 40, Mean Corpuscular Volume 84, Mean Corpuscular Hemoglobin 27, Mean Corpuscular Hemoglobin Concent 32, Red Cell Distribution Width 15.1H, Platelet Count 204, Mean Platelet Volume 9.6, Immature Granulocyte % (Auto) 0, Neutrophils (%) (Auto) 63, Lymphocytes (%) (Auto) 25, Monocytes (%) (Auto) 8, Eosinophils (%) (Auto) 2, Basophils (%) (Auto) 1, Neutrophils # (Auto) 4.6, Lymphocytes # (Auto) 1.8, Monocytes # (Auto) 0.6, Eosinophils # (Auto) 0.2, Basophils # (Auto) 0.1, Immature Granulocyte # (Auto) 0.0, Prothrombin Time 13.8, INR Comment 1.0, Activated Partial Thromboplast Time 31, Sodium Level 136, Potassium Level 3.8, Chloride Level 102, Carbon Dioxide Level 24, Anion Gap 10, Blood Urea Nitrogen 11, Creatinine 1.09, Estimat Glomerular Filtration Rate 70, BUN/Creatinine Ratio 10, Glucose Level 125H, Calcium Level 9.2, Corrected Calcium 9.2, Magnesium Level 1.4L, Total Bilirubin 0.5, Aspartate Amino Transf (AST/SGOT) 17, Alanine Aminotransferase (ALT/SGPT) 11, Alkaline Phosphatase 75, Troponin I < 0.028, B- Type Natriuretic Peptide 194.9H, Total Protein 6.3L, Albumin 4.0 10/14/22 05:00: White Blood Count 6.0, Red Blood Count 4.82, Hemoglobin 13.1L, Hematocrit 41, Mean Corpuscular Volume 84, Mean Corpuscular Hemoglobin 27, Mean Corpuscular H emoglobin Concent 32, Red Cell Distribution Width 15.1H, Platelet Count 205, Me an Platelet Volume 9.7, Immature Granulocyte % (Auto) 1, Neutrophils (%) (Auto) 55, Lymphocytes (%) (Auto) 31, Monocytes (%) (Auto) 10, Eosinophils (%) (Auto) 3, Basophils (%) (Auto) 1, Neutrophils # (Auto) 3.3, Lymphocytes # (Auto) 1.9, Monocytes # (Auto) 0.6, Eosinophils # (Auto) 0.2, Basophils # (Auto) 0.1, Immature Granulocyte # (Auto) 0.0, Sodium Level 138, Potassium Level 3.7, Chloride Level 104, Carbon Dioxide Level 23, Anion Gap 11, Blood Urea Nitrogen 9, Creatinine 0.88, Estimat Glomerular Filtration Rate 89, BUN/Creatinine Ratio 10, Glucose Level 101, Calcium Level 9.4, Corrected Calcium 9.5, Magnesium Level 1.8, Total Bilirubin 0.4, Aspartate Amino Transf (AST/SGOT) 18, Alanine Am inotransferase (ALT/SGPT) 11, Alkaline Phosphatase 74, Total Protein 6.4, Albumin 3.9, Phosphorus Level 3.8, Triglycerides Level 110, Cholesterol Level 90, LDL Cholesterol Direct 48, VLDL Cholesterol 22, HDL Cholesterol 30L CHRISTIANO LOJA MD Oct 14, 2022 08:13
[2022-10-14] MEDS: ASPIRIN E.C. 81 MG (ECOTRIN) TAB PO SCH (08:34)
[2022-10-14] MEDS: ENOXAPARIN 40 MG/0.4 ML (LOVENOX) SYR SC SCH (08:35)
[2022-10-14] MEDS ORDERED: KCL 20 MEQ TAB (K-DUR) PO ONE (09:00)
[2022-10-14] MEDS: SENNOSIDES 8.6 MG (SENOKOT) TAB PO SCH ×2 (09:08→20:24)
[2022-10-14] MEDS: DOCUSATE SODIUM 100 MG (COLACE) CAP PO SCH ×2 (09:08→20:23)
[2022-10-14] MEDS ORDERED: MTP100TCR PO (09:24)
[2022-10-14] MEDS ORDERED: ISOS60TA63 PO (09:24)
[2022-10-14] MEDS ORDERED: FERR325T24 PO ×2 (09:24)
[2022-10-14] MEDS ORDERED: ATOR40TA70 PO ×2 (09:24)
[2022-10-14] MEDS ORDERED: SUCR1TAB PO ×2 (09:24)
[2022-10-14] MEDS ORDERED: PANT40TA52 PO ×2 (09:24)
[2022-10-14] MEDS ORDERED: LISI10TA25 PO ×2 (09:24)
[2022-10-14] MEDS ORDERED: HYDR-3924 PO (09:24)
[2022-10-14] MEDS ORDERED: HYDR12.56 PO (09:24)
[2022-10-14] MEDS ORDERED: amLODIPine 10 MG (NORVASC) TAB PO ONE (10:30)
[2022-10-14] MEDS ORDERED: lisINopril 40 MG (PRINIVIL) TABLET PO ONE (10:30)
[2022-10-14] MEDS: niCARdipine IV 50 MG in NS (IVPB) 230 ML IV SCH ×2 (11:38→18:27)
--- NOTE | 2022-10-14 12:09 | Consultation-Cardiology ---
HPI-Cardiology Cardiology Consultation: Date of Consultation 10/14/22 Time Seen by a Provider: 10:00 Date of Admission Attending Physician [place] Admitting Physician Admitting Physician: Bianca Combs DO Attending Physician: Bianca Combs DO Consulting Physician ANDERSON BARRETT MD, MA, FACP, FACC, FSCAI, CCDS HPI: Chief Complaint: Elevated bp 77 yo man who was experiencing gen malaise for the last several days at home and finding his bp to be elevated. He was admitted yesterday to Dr Combs's service for severe hypertension. Has been treated with iv Cardene. Feels better at the time of my exam. He denies cp or palp or syncope or shortness of breath or leg swelling Review of Systems-Cardiology Review of Systems Constitutional: malaise, tiredness; No weight loss, No weight gain Eyes: No vision change Ears/Nose/Throat: No ear discharge, No nasal drainage, No recent hearing loss Respiratory: As described under HPI Cardiovascular: As described under HPI Gastrointestinal: No diarrhea, No nausea, No vomiting Genitourinary: No dysuria, No hematuria, No urine frequency changes Musculoskeletal: No back pain, No joint pain Skin: No rash, No ulcerations Psychiatric/Neurological: No seizure, No focal weakness, No syncope Hematologic: No bleeding abnormalities [id number] Hx Patient Social History Smoking Status: Former Smoker Former smoker/When Quit: Apr 28, 1993 2nd Hand Smoke Exposure: No Alcohol Use?: No Pt feels they are or have been: No Immunizations Up To Date Tetanus Booster (TDap): Unknown Date of Pneumonia Vaccine: Nov 25, 2016 Date of Influenza Vaccine: Jan 12, 2019 Past Medical History PMH As described under Assessment. Family Medical History Family Medical History: He reports his mother had CAD and an MT. Family History: Cardiovascular disease 19 MOTHER Myocardial infarction 19 MOTHER, Onset:62 G8 SISTER Allergies and Home Medications Allergies Coded Allergies: morphine (Verified Allergy, Severe, HIVES, N/V,pt has rec. Lortab in the past w/o issue, 10/23/21) Patient Home Medication List Home Medication List Reviewed: Yes Albuterol Sulfate (Ventolin Hfa) 18 Gm Hfa.aer.ad, 2 PUFF INH Q6H PRN for SHORTNESS OF BREATH, (Reported) Entered as Reported by: ANGELY WHITESIDE on 11/26/18 1024 Allopurinol (Allopurinol) 300 Mg Tablet, 150 MG PO DAILY, (Reported) Entered as Reported by: ANA M GOLDSTEIN on 12/11/17 1119 Last Action: Continued Amitriptyline HCl (Amitriptyline HCl) 100 Mg Tablet, 100 MG PO HS, (Reported) Entered as Reported by: ANA M GOLDSTEIN on 10/22/18 1027 Last Action: Converted Amlodipine Besylate (Amlodipine Besylate) 10 Mg Tablet, 10 MG PO DAILY, (Reported) Entered as Reported by: BALBIR YUAN on 11/19/191907 Last Action: Held Aspirin (Aspirin EC) 81 Mg Tablet.dr, 81 MG PO HS, (Reported) Entered as Reported by: TRACY PEGUERO on 09/25/21 1408 Last Action: Continued Atorvastatin Calcium (Atorvastatin Calcium) 40 Mg Tablet, 40 MG PO, (Reported) Entered as Reported by: MURRAY CULVER on 10/14/22923 Last Action: New Order Buspirone HCl (Buspirone HCl) 15 Mg Tablet, 15 MG PO DAILY, (Reported) Entered as Reported by: BALBIR YUAN on 11/19/191907 Last Action: Continued Cetirizine HCl (Cetirizine HCl) 10 Mg Tablet, 10 MG PO DAILY, (Reported) Entered as Reported by: SHIRA VAZ on 04/25/15 0821 Last Action: Converted Dexlansoprazole (Dexilant) 60 Mg Cap.bp, 60 MG PO HS, (Reported) Entered as Reported by: ANA M GOLDSTEIN on 12/11/17 1329 Duloxetine HCl (Duloxetine HCl) 60 Mg Capsule.dr, 60 MG PO HS, (Reported) Entered as Reported by: HELIO OSBORN on 02/23/20 1148 Last Action: Converted Ferrous Sulfate (Ferosul) 325 Mg (65 Mg Iron) Tablet, 325 MG PO, (Reported) Entered as Reported by: MURRAY CULVER on 10/14/22923 Last Action: New Order Fluticasone/Umeclidin/Vilanter (Trelegy Ellipta 100-62.5-25) 1 Each Blst.w.dev, 1 PUFF INH DAILY, (Reported) Entered as Reported by: WAI FOSTER on 01/18/19 1033 Gabapentin (Gabapentin) 100 Mg Capsule, 100 MG PO HS, (Reported) Entered as Reported by: HELIO OSBORN on 02/23/20 114 Last Action: Continued Hydralazine HCl (Hydralazine HCl) 50 Mg Tablet, 50 MG PO TID, (Reported) Entered as Reported by: MURRAY CULVER on 10/14/22923 Last Action: New Order Hydrochlorothiazide (Hydrochlorothiazide) 12.5 Mg Tablet, 12.5 MG PO, (Reported) Entered as Reported by: MURRAY CULVER on 10/14/22923 Last Action: New Order Hydrocodone/Acetaminophen (Hydrocodone-Acetamin 5-325 mg) 5 Mg-325 Mg Tablet, 1 EA PO Q6H PRN for PAIN-MODERATE (5-7), (Reported) Entered as Reported by: HELIO OSBORN on 02/23/20 1148 Isosorbide Mononitrate (Isosorbide Mononitrate ER) 60 Mg Tab, 60 MG PO, (Reported) Entered as Reported by: MURRAY CULVER on 10/14/22923 Last Action: New Order Lisinopril (Lisinopril) 40 Mg Tablet, 40 MG PO DAILY, (Reported) Entered as Reported by: ANA M GOLDSTEIN on 10/22/18 1027 Last Action: Held Lisinopril (Lisinopril) 10 Mg Tablet, 10 MG PO DAILY, (Reported) Entered as Reported by: MURRAY CULVER on 10/14/22923 Last Action: New Order Metoprolol Succinate (Metoprolol Succinate) 100 Mg Tab.er.24h, 100 MG PO DAILY, (Reported) Entered as Reported by: MURRAY CULVER on 10/14/22923 Last Action: New Order Montelukast Sodium (Montelukast Sodium) 10 Mg Tablet, 10 MG PO HS, (Reported) Entered as Reported by: ANA M GOLDSTEIN on 12/11/17 1329 Last Action: Continued Naproxen (Naproxen) 500 Mg Tablet, 500 MG PO Q12H, (Reported) Entered as Reported by: WAI FOSTER on 01/18/19 1033 Ondansetron (Ondansetron Odt) 4 Mg Tab.rapdis, 4 MG PO Q6H PRN for NAUSEA/VOMITING Prescribed by: KARLY PATTON on 12/24/21924 Pantoprazole Sodium (Pantoprazole Sodium) 40 Mg Tablet.dr, 40 MG PO DAILY, (Reported) Entered as Reported by: MURRAY CULVER on 10/14/22923 Last Action: New Order Sucralfate (Sucralfate) 1 Gram Tablet, 1 GM PO QID, (Reported) Entered as Reported by: MURRAY CULVER on 10/14/22923 Last Action: New Order Tizanidine HCl (Tizanidine HCl) 6 Mg Capsule, 6 MG PO TID, (Reported) Entered as Reported by: TRACY PEGUERO on 09/25/21 1409 Last Action: Converted Discontinued Medications Metoprolol Succinate (Metoprolol Succinate) 50 Mg Tab.er.24h, 50 MG PO HS, (Reported) Discontinued Reason: No Longer Taking Entered as Reported by: HELIO OSBORN on 02/23/20 1148 Last Action: Discontinued Physical Exam-Cardiology Physical Exam Vital Signs/I&O 10/14/22 10/14/22 10/14/22 10/14/22 00:21 01:00 02:00 03:00 Pulse 82 81 75 71 Resp 19 22 21 B/P (MAP) 163/88 (113) 130/72 (91) 134/78 (96) Pulse Ox 91 90 91 O2 Delivery Room Air Room Air Room Air 10/14/22 10/14/22 10/14/22 10/14/22 04:00 04:00 04:00 05:00 Temp 36.9 Pulse 71 71 Resp 22 15 B/P (MAP) 163/83 (109) 161/92 (115) Pulse Ox 97 94 96 O2 Delivery Room Air Room Air Room Air 10/14/22 10/14/22 10/14/22 10/14/22 06:00 07:00 07:00 07:53 Temp 36.0 Pulse 75 72 72 Resp 10 25 B/P (MAP) 171/84 (113) 143/91 (110) Pulse Ox 95 92 O2 Delivery Room Air Room Air 10/14/22 10/14/22 10/14/22 10/14/22 08:00 08:00 09:00 10:00 Pulse 72 67 74 Resp 20 10 24 B/P (MAP) 157/77 (97) 174/110 (133) 143/69 (94) Pulse Ox 94 96 94 92 O2 Delivery Room Air Room Air Room Air Room Air 10/14/22 10/14/22 10/14/22 11:00 11:26 11:38 Pulse 74 Resp 11 B/P (MAP) 165/99 (110) 165/99 Pulse Ox 94 93 O2 Delivery Room Air Room Air O2 Flow Rate 0.00 10/13/22 23:59 Intake Total 100 ml Balance 100 ml Capillary Refill : Less Than 3 Seconds Constitutional: AAO x 3, well-developed, well-nourished HEENT: hearing is well preserved; No xanthelasmas are seen Neck: carotid pulses are 2 + bilaterally, with good upstrokes Respiratory: No accessory muscle use; chest expansion is symmetric, chest is bilaterally symmetric, other (good, bilat air entry) Cardiovascular: regular rate-rhythm, systolic murmur (soft CURTIS at card base) Gastrointestinal: No tender; soft; No guarding, No rebound; audible bowel sounds Extremities: No clubbing, No cyanosis, No significant edema Neurologic/Psychiatric: oriented x 3, other (moves all limbs equally) Skin: No rash on exposed areas, No ulcerations on exposed areas Data Review Labs Laboratory Tests 10/13/22 20:18: White Blood Count 7.3, Red Blood Count 4.68, Hemoglobin 12.8L, Hematocrit 40, Mean Corpuscular Volume 84, Mean Corpuscular Hemoglobin 27, Mean Corpuscular Hemoglobin Concent 32, Red Cell Distribution Width 15.1H, Platelet Count 204, Mean Platelet Volume 9.6, Immature Granulocyte % (Auto) 0, Neutrophils (%) (Auto) 63, Lymphocytes (%) (Auto) 25, Monocytes (%) (Auto) 8, Eosinophils (%) (Auto) 2, Basophils (%) (Auto) 1, Neutrophils # (Auto) 4.6, Lymphocytes # (Auto) 1.8, Monocytes # (Auto) 0.6, Eosinophils # (Auto) 0.2, Basophils # (Auto) 0.1, Immature Granulocyte # (Auto) 0.0, Prothrombin Time 13.8, INR Comment 1.0, Activated Partial Thromboplast Time 31, Sodium Level 136, Potassium Level 3.8, Chloride Level 102, Carbon Dioxide Level 24, Anion Gap 10, Blood Urea Nitrogen 11, Creatinine 1.09, Estimat Glomerular Filtration Rate 70, BUN/Creatinine Ratio 10, Glucose Level 125H, Calcium Level 9.2, Corrected Calcium 9.2, Magnesium Level 1.4L, Total Bilirubin 0.5, Aspartate Amino Transf (AST/SGOT) 17, Alanine Aminotransferase (ALT/SGPT) 11, Alkaline Phosphatase 75, Troponin I < 0.028, B- Type Natriuretic Peptide 194.9H, Total Protein 6.3L, Albumin 4.0 10/14/22 05:00: White Blood Count 6.0, Red Blood Count 4.82, Hemoglobin 13.1L, Hematocrit 41, Mean Corpuscular Volume 84, Mean Corpuscular Hemoglobin 27, Mean Corpuscular Hemoglobin Concent 32, Red Cell Distribution Width 15.1H, Platelet Count 205, Mean Platelet Volume 9.7, Immature Granulocyte % (Auto) 1, Neutrophils (%) (Auto) 55, Lymphocytes (%) (Auto) 31, Monocytes (%) (Auto) 10, Eosinophils (%) (Auto) 3, Basophils (%) (Auto) 1, Neutrophils # (Auto) 3.3, Lymphocytes # (Auto) 1.9, Monocytes # (Auto) 0.6, Eosinophils # (Auto) 0.2, Basophils # (Auto) 0.1, Immature Granulocyte # (Auto) 0.0, Sodium Level 138, Potassium Level 3.7, Chloride Level 104, Carbon Dioxide Level 23, Anion Gap 11, Blood Urea Nitrogen 9, Creatinine 0.88, Estimat Glomerular Filtration Rate 89, BUN/Creatinine Ratio 10, Glucose Level 101, Calcium Level 9.4, Corrected Calcium 9.5, Magnesium Level 1.8, Total Bilirubin 0.4, Aspartate Amino Transf (AST/SGOT) 18, Alanine Aminotransferase (ALT/SGPT) 11, Alkaline Phosphatase 74, Total Protein 6.4, Albumin 3.9, Phosphorus Level 3.8, Triglycerides Level 110, Cholesterol Level 90, LDL Cholesterol Direct 48, VLDL Cholesterol 22, HDL Cholesterol 30L 10/14/22 10:56: Glucometer 128H Laboratory Tests 10/13/22 20:18 10/14/22 05:00 A/P-Cardiology Assessment/Admission Diagnosis Severe hypertension Card cath on 09/25/[address] Nunez: Normal left heart pressures. No significant coronary artery disease although the distal left anterior descending coronary artery tapers rapidly in its distal third which could be a sign of co ronary spasm and/or distal microvascular dysfunction. The right radial artery is small in caliber but did not have any focal atherosclerosis H/o mild - Echo of 09/25/[address] Nunez: mild conc LVH, LVEF 60-65%, grade 1 diastolic dysfunction, mild with mean grad 12 mmHg and valve area 1.5 sq cm, mild AI, PASP 22 + 5 mmHg H/o hyperlipidemia H/o GERD Discussion and Recomendations * Add amlodipine' * Increase losartan * D/c iv Cardene * Echo * Monitor labs * I discussed his CV issues in detail with him and his family and answered questions ANDERSON BARRETT MD FACP [facility] CCDS Oct 14, 2022 12:09
[2022-10-14] MEDS ORDERED: HydroCHLOROthiazide CAP/TABLET 12.5 MG TAB PO ONE (12:30)
[2022-10-14] MEDS ORDERED: meTOprolol SUCCINATE 100 MG (TOPROL XL) TAB PO ONE (12:30)
[2022-10-14] MEDS: hydrALAZINE (APRESOLINE) 25 MG TAB PO SCH ×2 (13:44→22:49)
[2022-10-14] MEDS: AMITRIPTYLINE 25 MG (ELAVIL) TAB PO SCH (20:27)
[2022-10-14] MEDS: MONTELUKAST 10 MG (SINGULAIR) TAB PO SCH (20:29)
[2022-10-14] MEDS ORDERED: GABAPENTIN 100 MG (NEURONTIN) CAP PO SCH (21:00)
[2022-10-14] MEDS ORDERED: DULoxetine 30 MG (CYMBALTA) CAP PO SCH (21:00)
[2022-10-14] MEDS ORDERED: ASPIRIN E.C. 81 MG (ECOTRIN) TAB PO SCH (21:00)
[2022-10-15 04:06] LABS: BASOPHILS # (AUTO) 0.1 10^3/uL (0.0-0.1); BASOPHILS % (AUTO) 1 % (0-10); EOSINOPHILS # (AUTO) 0.2 10^3/uL (0.0-0.3); EOSINOPHILS % (AUTO) 2 % (0-10); HEMATOCRIT 44 % (40-54); HEMOGLOBIN 14.1 g/dL (13.3-17.7); LYMPHOCYTES # (AUTO) 1.6 10^3/uL (1.0-4.0); LYMPHOCYTES % (AUTO) 20 % (12-44); MEAN CORPUSCULAR HEMOGLOBIN 27 pg (25-34); MEAN CORPUSCULAR HGB CONC 32 g/dL (32-36); MEAN CORPUSCULAR VOLUME 83 fL (80-99); MEAN PLATELET VOLUME 9.7 fL (9.0-12.2); MONOCYTES # (AUTO) 0.7 10^3/uL (0.0-1.0); MONOCYTES % (AUTO) 10 % (0-12); NEUTROPHILS % (AUTO) 65 % (42-75); PLATELET COUNT 219 10^3/uL (130-400); WHITE BLOOD COUNT 7.6 10^3/uL (4.3-11.0)
[2022-10-15] MEDS: niCARdipine IV 50 MG in NS (IVPB) 230 ML IV SCH ×2 (04:15→07:53)
[2022-10-15 04:25] LABS: ALBUMIN 4.2 GM/DL (3.2-4.5); BILIRUBIN,TOTAL 0.7 MG/DL (0.1-1.0); CALCIUM 9.9 MG/DL (8.5-10.1); CREATININE SERUM 1.04 MG/DL (0.60-1.30); MAGNESIUM 1.8 MG/DL (1.6-2.4); POTASSIUM 3.8 MMOL/L (3.6-5.0); TOTAL PROTEIN 6.8 GM/DL (6.4-8.2)
[2022-10-15] MEDS: hydrALAZINE (APRESOLINE) 25 MG TAB PO SCH ×3 (05:01→22:08)
[2022-10-15] MEDS: MAGNESIUM 1 GM/100 ML IVPB 100 ML IV SCH ×3 (05:01→06:04)
[2022-10-15] MEDS: POTASSIUM CL 10MEQ/50ML IVPB 50 ML IV SCH (05:59)
[2022-10-15] MEDS: inSUlin ASPART (NovoLOG) 1 UNIT/0.01 ML (CHARGE PER UNIT) SC SCH ×4 (05:59→20:38)
[2022-10-15] MEDS: KCL 20 MEQ TAB (K-DUR) PO SCH (05:59)
[2022-10-15] MEDS: HYDROmorphone 2 MG/ML VIAL (DILAUDID) IV PRN ×5 (06:51→20:50)
[2022-10-15] MEDS: ENOXAPARIN 40 MG/0.4 ML (LOVENOX) SYR SC SCH (07:44)
[2022-10-15] MEDS: busPIRone 15 MG (BUSPAR) TABLET PO SCH (07:44)
[2022-10-15] MEDS: amLODIPine 10 MG (NORVASC) TAB PO SCH (07:44)
[2022-10-15] MEDS: ALLOPURINOL 300 MG (ZYLOPRIM) TAB PO SCH (07:45)
[2022-10-15] MEDS: meTOprolol SUCCINATE 100 MG (TOPROL XL) TAB PO SCH (07:45)
[2022-10-15] MEDS: lisINopril 40 MG (PRINIVIL) TABLET PO SCH (07:45)
[2022-10-15] MEDS: LORATADINE (CLARITIN) 10 MG TAB PO SCH (07:45)
[2022-10-15] MEDS: HydroCHLOROthiazide CAP/TABLET 12.5 MG TAB PO SCH (07:45)
[2022-10-15] MEDS: ASPIRIN E.C. 81 MG (ECOTRIN) TAB PO SCH (07:45)
[2022-10-15] MEDS ORDERED: KCL 20 MEQ TAB (K-DUR) PO ONE (08:00)
--- NOTE | 2022-10-15 08:55 | Progress Note ---
Subjective Date Seen by a Provider: Oct 15, 2022 Time Seen by a Provider: 08:50 Subjective/Events-last exam Blood pressure much better Cardene drip was required due to elevated blood pressure As needed blood pressure medications were ordered Appreciate cardiology Son at bedside Review of Systems General: Fatigue, Malaise Objective Exam Last Set of Vital Signs Vital Signs Date Time Temp Pulse Resp B/P (MAP) Pulse Ox O2 Delivery O2 Flow Rate FiO2 10/15/22 08:00 96 Room Air 10/15/22 07:56 36.7 10/15/22 07:53 163/81 10/15/22 07:00 78 10/15/22 06:45 18 10/14/22 11:26 0.00 10/13/22 23:18 21 Capillary Refill : Less Than 3 Seconds I&O Intake and Output 10/15/22 00:00 Intake Total 2350 ml Output Total 4750 ml Balance -2400 ml Intake Oral 2350 ml Output Urine Total 4750 ml # Voids 3 # Bowel Movements 1 Daily Weight Change No General: Alert, Oriented X3, Cooperative, No Acute Distress Lungs: Clear to Auscultation, Normal Air Movement Heart: Regular Rate, Normal S1, Normal S2, No Murmurs Psych/Mental Status: Mental Status NL, Mood NL Results Lab Laboratory Tests 10/14/22 10:56: Glucometer 128H 10/14/22 16:22: Glucometer 136H 10/14/22 20:20: Glucometer 132H 10/15/22 03:57: White Blood Count 7.6, Red Blood Count 5.29, Hemoglobin 14.1, Hematocrit 44, Mean Corpuscular Volume 83, Mean Corpuscular Hemoglobin 27, Mean Corpuscular Hemoglobin Concent 32, Red Cell Distribution Width 15.3H, Platelet Count 219, Mean Platelet Volume 9.7, Immature Granulocyte % (Auto) 2, Neutrophils (%) (Auto) 65, Lymphocytes (%) (Auto) 20, Monocytes (%) (Auto) 10, Eosinophils (%) (Auto) 2, Basophils (%) (Auto) 1, Neutrophils # (Auto) 5.0, Lymphocytes # (Auto) 1.6, Monocytes # (Auto) 0.7, Eosinophils # (Auto) 0.2, Basophils # (Auto) 0.1, Immature Granulocyte # (Auto) 0.1, Sodium Level 136, Potassium Level 3.8, Chloride Level 101, Carbon Dioxide Level 24, Anion Gap 11, Blood Urea Nitrogen 11, Creatinine 1.04, Estimat Glomerular Filtration Rate 74, BUN/Creatinine Ratio 11, Glucose Level 102, Calcium Level 9.9, Corrected Calcium 9.7, Phosphorus Level 4.0, Magnesium Level 1.8, Total Bilirubin 0.7, Aspartate Amino Transf (AST/SGOT) 17, Alanine Aminotransferase (ALT/SGPT) 12, Alkaline Phosphatase 82, Total Protein 6.8, Albumin 4.2 Microbiology 10/13/22 MRSA Screen - Final, Complete MRSA not isolated Assessment/Plan Assessment/Plan Assess & Plan/Chief Complaint Assessment: Hypertensive urgency Chest pain Elevated troponin Gout Chronic kidney disease Plan: Supportive care Lisandra alvarado DC ICU appreciated Cardiology appreciated Move to fourth floor CARLOS NUNN DO Oct 15, 2022 08:55
[2022-10-15] MEDS ORDERED: hydrALAZINE (APRESOLINE) 25 MG TAB PO PRN (09:00)
[2022-10-15] MEDS: DOCUSATE SODIUM 100 MG (COLACE) CAP PO SCH ×2 (09:56→20:50)
[2022-10-15] MEDS: SENNOSIDES 8.6 MG (SENOKOT) TAB PO SCH ×2 (09:56→20:50)
--- NOTE | 2022-10-15 11:21 | Progress Note - Cardiology ---
Cardiology SOAP Progress Note Subjective: Lying in bed Son at the bedside No c/o palpitations Chronic chest discomfort which is unchanged Objective: I&O/Vital Signs 10/15/22 10/16/22 10/16/22 10/16/22 23:43 01:00 03:40 07:00 Temp 36.4 36.8 Pulse 66 62 54 90 Resp 16 16 B/P (MAP) 122/58 (79) 115/69 (84) Pulse Ox 95 95 O2 Delivery Room Air Room Air O2 Flow Rate 0.00 0.00 0.00 0.00 10/16/22 10/16/22 10/16/22 07:35 08:00 11:32 Temp 37.0 37.0 Pulse 87 85 Resp 18 16 B/P (MAP) 170/79 (109) 113/62 (79) Pulse Ox 95 95 92 O2 Delivery Room Air Room Air Room Air 10/15/22 23:59 Intake Total 1100 ml Output Total 1200 ml Balance -100 ml Weight (Pounds): 172 Weight (Ounces): 5.0 Weight (Calculated Kilograms): 78.292269 Constitutional: AAO x 3, well-developed, well-nourished Respiratory: No accessory muscle use; chest expansion is symmetric, chest is bilaterally symmetric, other (good, bilat air entry) Cardiovascular: regular rate-rhythm, systolic murmur (soft CURTIS at card base) Gastrointestional: No tender; soft; No guarding, No rebound; audible bowel sounds Extremities: No clubbing, No cyanosis, No significant edema Neurologic/Psychiatric: oriented x 3, other (moves all limbs equally) Skin: No rash on exposed areas, No ulcerations on exposed areas Results/Procedures: Labs Laboratory Tests 10/15/22 20:28: Glucometer 138H 10/16/22 04:50: White Blood Count 7.1, Red Blood Count 5.15, Hemoglobin 14.1, Hematocrit 43, Mean Corpuscular Volume 83, Mean Corpuscular Hemoglobin 27, Mean Corpuscular Hemoglobin Concent 33, Red Cell Distribution Width 15.4H, Platelet Count 204, Mean Platelet Volume 9.6, Immature Granulocyte % (Auto) 1, Neutrophils (%) (Auto) 59, Lymphocytes (%) (Auto) 27, Monocytes (%) (Auto) 11, Eosinophils (%) (Auto) 2, Basophils (%) (Auto) 1, Neutrophils # (Auto) 4.2, Lymphocytes # (Auto) 1.9, Monocytes # (Auto) 0.7, Eosinophils # (Auto) 0.2, Basophils # (Auto) 0.1, Immature Granulocyte # (Auto) 0.1, Sodium Level 136, Potassium Level 3.9, Chloride Level 102, Carbon Dioxide Level 24, Anion Gap 10, Blood Urea Nitrogen 18, Creatinine 1.11, Estimat Glomerular Filtration Rate 68, BUN/Creatinine Ratio 16, Glucose Level 107H, Calcium Level 9.6, Corrected Calcium 9.6, Magnesium Level 1.9, Total Bilirubin 0.7, Aspartate Amino Transf (AST/SGOT) 17, Alanine Aminotransferase (ALT/SGPT) 13, Alkaline Phosphatase 77, Total Protein 6.5, Albumin 4.0 10/16/22 05:17: Glucometer 104 10/16/22 11:37: Glucometer 165H Microbiology 10/13/22 MRSA Screen - Final, Complete MRSA not isolated A/P: Assessment: Severe hypertension Card cath on 09/25/[address] Nunez: Normal left heart pressures. No significant coronary artery disease although the distal left anterior descending coronary artery tapers rapidly in its distal third which could be a sign of coronary spasm and/or distal microvascular dysfunction. The right radial artery is small in caliber but did not have any focal atherosclerosis H/o mild - Echo of 09/25/[address] Nunez: mild conc LVH, LVEF 60-65%, grade 1 diastolic dysfunction, mild with mean grad 12 mmHg and valve area 1.5 sq cm, mild AI, PASP 22 + 5 mmHg - Echocardiogram of 10-14-22 showed LVEF 60-65%. Grade 1 diastolic dysfunction. Mild MR. Mild AoR. PASP 20-25 mmHg H/o hyperlipidemia H/o GERD Plan: * BP improved with addition of antihypertensives and resumption of home medications - multi-drug regimen - monitor for hypotension * D/c iv Cardene * Monitor labs * If BP remains controlled tsf to medical floor later today LISSET GRANADO Oct 15, 2022 11:21
[2022-10-15] MEDS ORDERED: METO50TA7 PO ×2 (11:22)
[2022-10-15] MEDS ORDERED: HYDR-3923 PO ×4 (11:22)
[2022-10-15] MEDS ORDERED: ISOS60TA63 PO ×2 (11:22)
[2022-10-15] MEDS ORDERED: cloNIDine 0.1 MG (CATAPRES) TAB PO PRN (13:00)
--- NOTE | 2022-10-15 19:35 | Progress Note - Cardiology ---
Cardiology SOAP Progress Note Subjective: No cp or palp or syncope No shortness of breath Weakness better No n/v/d No swelling Objective: I&O/Vital Signs 10/15/22 10/15/22 10/15/22 10/15/22 07:53 07:56 08:00 08:00 Temp 36.7 Pulse 91 Resp 30 B/P (MAP) 163/81 102/67 (79) Pulse Ox 96 95 O2 Delivery Room Air Room Air Room Air 10/15/22 10/15/22 10/15/22 10/15/22 08:23 09:00 10:00 11:00 Pulse 71 74 77 Resp 12 33 14 B/P (MAP) 93/57 93/57 (69) 116/92 (100) 158/103 (121) Pulse Ox 90 92 94 O2 Delivery Room Air Room Air Room Air 10/15/22 10/15/22 10/15/22 10/15/22 11:45 12:00 12:00 13:00 Temp 36.5 Pulse 81 82 Resp 26 B/P (MAP) 143/75 (97) Pulse Ox 97 90 O2 Delivery Room Air Room Air Room Air 10/15/22 10/15/22 10/15/22 10/15/22 13:00 14:00 16:00 17:24 Temp 37.1 Pulse 80 75 70 Resp 10 9 18 B/P (MAP) 161/83 (109) 148/90 (109) 134/70 (91) Pulse Ox 92 90 97 94 O2 Delivery Room Air Room Air Room Air Room Air 10/14/22 23:59 Intake Total 1200 ml Output Total 2400 ml Balance -1200 ml Weight (Pounds): 172 Weight (Ounces): 5.0 Weight (Calculated Kilograms): 78.670711 Constitutional: AAO x 3, well-developed, well-nourished Respiratory: No accessory muscle use; chest expansion is symmetric, chest is bilaterally symmetric, other (good, bilat air entry) Cardiovascular: regular rate-rhythm, systolic murmur (soft CURTIS at card base) Gastrointestional: No tender; soft; No guarding, No rebound; audible bowel sounds Extremities: No clubbing, No cyanosis, No significant edema Neurologic/Psychiatric: oriented x 3, other (moves all limbs equally) Skin: No rash on exposed areas, No ulcerations on exposed areas Results/Procedures: Labs Laboratory Tests 10/14/22 20:20: Glucometer 132H 10/15/22 03:57: White Blood Count 7.6, Red Blood Count 5.29, Hemoglobin 14.1, Hematocrit 44, Me an Corpuscular Volume 83, Mean Corpuscular Hemoglobin 27, Mean Corpuscular Hemoglobin Concent 32, Red Cell Distribution Width 15.3H, Platelet Count 219, Mean Platelet Volume 9.7, Immature Granulocyte % (Auto) 2, Neutrophils (%) (Auto) 65, Lymphocytes (%) (Auto) 20, Monocytes (%) (Auto) 10, Eosinophils (%) (Auto) 2, Basophils (%) (Auto) 1, Neutrophils # (Auto) 5.0, Lymphocytes # (Auto) 1.6, Monocytes # (Auto) 0.7, Eosinophils # (Auto) 0.2, Basophils # (Auto) 0.1, Immature Granulocyte # (Auto) 0.1, Sodium Level 136, Potassium Level 3.8, Chloride Level 101, Carbon Dioxide Level 24, Anion Gap 11, Blood Urea Nitrogen 11, Creatinine 1.04, Estimat Glomerular Filtration Rate 74, BUN/Creatinine Ratio 11, Glucose Level 102, Calcium Level 9.9, Corrected Calcium 9.7, Phosphorus Le lena 4.0, Magnesium Level 1.8, Total Bilirubin 0.7, Aspartate Amino Transf (AST/SGOT) 17, Alanine Aminotransferase (ALT/SGPT) 12, Alkaline Phosphatase 82, Total Protein 6.8, Albumin 4.2 10/15/22 10:45: Glucometer 114H Microbiology 10/13/22 MRSA Screen - Final, Complete MRSA not isolated Laboratory Tests 10/13/22 20:18 10/14/22 05:00 10/15/22 03:57 A/P: Assessment: Severe hypertension Card cath on 09/25/[address] Nunez: Normal left heart pressures. No significant coronary artery disease although the distal left anterior descending coronary artery tapers rapidly in its distal third which could be a sign of coronary spasm and/or distal microvascular dysfunction. The right radial artery is small in caliber but did not have any focal atherosclerosis H/o mild - Echo of 09/25/[address] Nunez: mild conc LVH, LVEF 60-65%, grade 1 diastolic dysfunction, mild with mean grad 12 mmHg and valve area 1.5 sq cm, mild AI, PASP 22 + 5 mmHg - Echocardiogram of 10-14-22 showed LVEF 60-65%. Grade 1 diastolic dysfunction. Mild MR. Mild AoR. PASP 20-25 mmHg H/o hyperlipidemia H/o GERD Plan: * BP improved with addition of antihypertensives and resumption of home medications - multi-drug regimen - monitor for hypotension * D/c iv Cardene * Monitor labs * If BP remains controlled tsf to medical floor later today ANDERSON BARRETT MD FACP FAC CCDS Oct 15, 2022 19:35
[2022-10-15 20:30] VITALS: BP 150/70
[2022-10-15] MEDS: MONTELUKAST 10 MG (SINGULAIR) TAB PO SCH (20:49)
[2022-10-15] MEDS: AMITRIPTYLINE 25 MG (ELAVIL) TAB PO SCH (20:49)
[2022-10-15 23:43] VITALS: BP 122/58
[2022-10-16 03:40] VITALS: BP 115/69
[2022-10-16] MEDS: HYDROmorphone 2 MG/ML VIAL (DILAUDID) IV PRN (04:03)
[2022-10-16 05:02] LABS: BASOPHILS # (AUTO) 0.1 10^3/uL (0.0-0.1); BASOPHILS % (AUTO) 1 % (0-10); EOSINOPHILS # (AUTO) 0.2 10^3/uL (0.0-0.3); EOSINOPHILS % (AUTO) 2 % (0-10); HEMATOCRIT 43 % (40-54); HEMOGLOBIN 14.1 g/dL (13.3-17.7); LYMPHOCYTES # (AUTO) 1.9 10^3/uL (1.0-4.0); LYMPHOCYTES % (AUTO) 27 % (12-44); MEAN CORPUSCULAR HEMOGLOBIN 27 pg (25-34); MEAN CORPUSCULAR HGB CONC 33 g/dL (32-36); MEAN CORPUSCULAR VOLUME 83 fL (80-99); MEAN PLATELET VOLUME 9.6 fL (9.0-12.2); MONOCYTES # (AUTO) 0.7 10^3/uL (0.0-1.0); MONOCYTES % (AUTO) 11 % (0-12); NEUTROPHILS # (AUTO) 4.2 10^3/uL (1.8-7.8); NEUTROPHILS % (AUTO) 59 % (42-75); PLATELET COUNT 204 10^3/uL (130-400); WHITE BLOOD COUNT 7.1 10^3/uL (4.3-11.0)
[2022-10-16] MEDS: hydrALAZINE (APRESOLINE) 25 MG TAB PO SCH ×2 (05:07→13:48)
[2022-10-16 05:16] LABS: BILIRUBIN,TOTAL 0.7 MG/DL (0.1-1.0); CALCIUM 9.6 MG/DL (8.5-10.1); CREATININE SERUM 1.11 MG/DL (0.60-1.30); MAGNESIUM 1.9 MG/DL (1.6-2.4); POTASSIUM 3.9 MMOL/L (3.6-5.0); TOTAL PROTEIN 6.5 GM/DL (6.4-8.2)
[2022-10-16] MEDS: inSUlin ASPART (NovoLOG) 1 UNIT/0.01 ML (CHARGE PER UNIT) SC SCH ×3 (05:17→16:22)
[2022-10-16 07:35] VITALS: BP 170/79
[2022-10-16] MEDS ORDERED: GABAPENTIN 100 MG (NEURONTIN) CAP PO SCH (09:00)
[2022-10-16] MEDS ORDERED: DULoxetine 30 MG (CYMBALTA) CAP PO SCH (09:00)
[2022-10-16] MEDS: busPIRone 15 MG (BUSPAR) TABLET PO SCH (09:02)
[2022-10-16] MEDS: DOCUSATE SODIUM 100 MG (COLACE) CAP PO SCH (09:03)
[2022-10-16] MEDS: ENOXAPARIN 40 MG/0.4 ML (LOVENOX) SYR SC SCH (09:03)
[2022-10-16] MEDS: amLODIPine 10 MG (NORVASC) TAB PO SCH (09:03)
[2022-10-16] MEDS: HydroCHLOROthiazide CAP/TABLET 12.5 MG TAB PO SCH (09:03)
[2022-10-16] MEDS: lisINopril 40 MG (PRINIVIL) TABLET PO SCH (09:04)
[2022-10-16] MEDS: ASPIRIN E.C. 81 MG (ECOTRIN) TAB PO SCH (09:04)
[2022-10-16] MEDS: ALLOPURINOL 300 MG (ZYLOPRIM) TAB PO SCH (09:04)
[2022-10-16] MEDS: LORATADINE (CLARITIN) 10 MG TAB PO SCH (09:04)
[2022-10-16] MEDS: SENNOSIDES 8.6 MG (SENOKOT) TAB PO SCH (09:04)
[2022-10-16] MEDS: meTOprolol SUCCINATE 100 MG (TOPROL XL) TAB PO SCH (09:04)
[2022-10-16 11:32] VITALS: BP 113/62
[2022-10-16] MEDS ORDERED: LISI40TA9 PO ×2 (12:03)
[2022-10-16] MEDS ORDERED: AMLO-251 PO ×2 (12:03)
[2022-10-16] MEDS ORDERED: MTP100TCR PO ×2 (12:03)
[2022-10-16] MEDS ORDERED: HYDR-3924 PO ×2 (12:10)
--- NOTE | 2022-10-16 12:17 | Progress Note ---
Objective Exam Last Set of Vital Signs Vital Signs Date Time Temp Pulse Resp B/P (MAP) Pulse Ox O2 Delivery O2 Flow Rate FiO2 10/16/22 11:32 37.0 85 16 113/62 (79) 92 Room Air 10/16/22 03:40 0.00 0.00 10/13/22 23:18 21 Capillary Refill : Less Than 3 Seconds I&O Intake and Output 10/16/22 00:00 Intake Total 1650 ml Output Total 1800 ml Balance -150 ml Intake Oral 1550 ml IV Total 100 ml Output Urine Total 1800 ml # Voids 3 Results Lab Laboratory Tests 10/15/22 20:28: Glucometer 138H 10/16/22 04:50: White Blood Count 7.1, Red Blood Count 5.15, Hemoglobin 14.1, Hematocrit 43, Mean Corpuscular Volume 83, Mean Corpuscular Hemoglobin 27, Mean Corpuscular Hemoglobin Concent 33, Red Cell Distribution Width 15.4H, Platelet Count 204, Mean Platelet Volume 9.6, Immature Granulocyte % (Auto) 1, Neutrophils (%) (Auto) 59, Lymphocytes (%) (Auto) 27, Monocytes (%) (Auto) 11, Eosinophils (%) (Auto) 2, Basophils (%) (Auto) 1, Neutrophils # (Auto) 4.2, Lymphocytes # (Auto) 1.9, Monocytes # (Auto) 0.7, Eosinophils # (Auto) 0.2, Basophils # (Auto) 0.1, Immature Granulocyte # (Auto) 0.1, Sodium Level 136, Potassium Level 3.9, Chloride Level 102, Carbon Dioxide Level 24, Anion Gap 10, Blood Urea Nitrogen 18, Creatinine 1.11, Estimat Glomerular Filtration Rate 68, BUN/Creatinine Ratio 16, Glucose Level 107H, Calcium Level 9.6, Corrected Calcium 9.6, Magnesium Level 1.9, Total Bilirubin 0.7, Aspartate Amino Transf (AST/SGOT) 17, Alanine Aminotransferase (ALT/SGPT) 13, Alkaline Phosphatase 77, Total Protein 6.5, Albumin 4.0 10/16/22 05:17: Glucometer 104 10/16/22 11:37: Glucometer 165H Microbiology 10/13/22 MRSA Screen - Final, Complete MRSA not isolated Assessment/Plan Assessment/Plan Assess & Plan/Chief Complaint Assessment: Hypertensive urgency Chest pain Elevated troponin Gout Chronic kidney disease Plan: Supportive care Lisandra alvarado DC ICU appreciated Cardiology appreciated Move to fourth floor CARLOS NUNN DO Oct 16, 2022 12:17
--- NOTE | 2022-10-16 12:26 | Progress Note - Cardiology ---
Cardiology SOAP Progress Note Subjective: Sitting up in bed Eating afternoon meal C/O gen joint pains which are chronic Son at the bedside Objective: I&O/Vital Signs 10/16/22 10/16/22 10/16/22 10/16/22 01:00 03:40 07:00 07:35 Temp 36.8 37.0 Pulse 62 54 90 87 Resp 16 18 B/P (MAP) 115/69 (84) 170/79 (109) Pulse Ox 95 95 O2 Delivery Room Air Room Air O2 Flow Rate 0.00 0.00 10/16/22 10/16/22 08:00 11:32 Temp 37.0 Pulse 85 Resp 16 B/P (MAP) 113/62 (79) Pulse Ox 95 92 O2 Delivery Room Air Room Air 10/16/22 00:00 Intake Total 1100 ml Output Total 1200 ml Balance -100 ml Weight (Pounds): 172 Weight (Ounces): 5.0 Weight (Calculated Kilograms): 78.979270 Constitutional: AAO x 3, well-developed, well-nourished Respiratory: No accessory muscle use; chest expansion is symmetric, chest is bilaterally symmetric, other (good, bilat air entry) Cardiovascular: regular rate-rhythm, systolic murmur (soft CURTIS at card base) Gastrointestional: No tender; soft; No guarding, No rebound; audible bowel sounds Extremities: No clubbing, No cyanosis, No significant edema Neurologic/Psychiatric: oriented x 3, other (moves all limbs equally) Skin: No rash on exposed areas, No ulcerations on exposed areas Results/Procedures: Labs Laboratory Tests 10/15/22 20:28: Glucometer 138H 10/16/22 04:50: White Blood Count 7.1, Red Blood Count 5.15, Hemoglobin 14.1, Hematocrit 43, Mean Corpuscular Volume 83, Mean Corpuscular Hemoglobin 27, Mean Corpuscular Hemoglobin Concent 33, Red Cell Distribution Width 15.4H, Platelet Count 204, Mean Platelet Volume 9.6, Immature Granulocyte % (Auto) 1, Neutrophils (%) (Auto) 59, Lymphocytes (%) (Auto) 27, Monocytes (%) (Auto) 11, Eosinophils (%) (Auto) 2, Basophils (%) (Auto) 1, Neutrophils # (Auto) 4.2, Lymphocytes # (Auto) 1.9, Monocytes # (Auto) 0.7, Eosinophils # (Auto) 0.2, Basophils # (Auto) 0.1, Immature Granulocyte # (Auto) 0.1, Sodium Level 136, Potassium Level 3.9, Chloride Level 102, Carbon Dioxide Level 24, Anion Gap 10, Blood Urea Nitrogen 18, Creatinine 1.11, Estimat Glomerular Filtration Rate 68, BUN/Creatinine Ratio 16, Glucose Level 107H, Calcium Level 9.6, Corrected Calcium 9.6, Magnesium Level 1.9, Total Bilirubin 0.7, Aspartate Amino Transf (AST/SGOT) 17, Alanine Aminotransferase (ALT/SGPT) 13, Alkaline Phosphatase 77, Total Protein 6.5, Albumin 4.0 10/16/22 05:17: Glucometer 104 10/16/22 11:37: Glucometer 165H Microbiology 10/13/22 MRSA Screen - Final, Complete MRSA not isolated A/P: Assessment: Severe hypertension - controlled on multi-drug regimen Card cath on 09/25/[address] Nunez: Normal left heart pressures. No significant coronary artery disease although the distal left anterior descending coronary artery tapers rapidly in its distal third which could be a sign of coronary spasm and/or distal microvascular dysfunction. The right radial artery is small in caliber but did not have any focal atherosclerosis H/o mild - Echo of 09/25/[address] Nunez: mild conc LVH, LVEF 60-65%, grade 1 diastolic dysfunction, mild with mean grad 12 mmHg and valve area 1.5 sq cm, mild AI, PASP 22 + 5 mmHg - Echocardiogram of 10-14-22 showed LVEF 60-65%. Grade 1 diastolic dysfunction. Mild MR. Mild AoR. PASP 20-25 mmHg H/o hyperlipidemia H/o GERD Plan: * BP improved with addition of antihypertensives and resumption of home medications - multi-drug regimen - monitor for hypotension * Monitor labs * Discussed at length with son and patient regarding antihypertensive regimen and answered multiple questions * Likely home today with out pt f/u LISSET GRANADO Oct 16, 2022 12:26
[2022-10-16] MEDS ORDERED: HYDR12.56 PO ×2 (12:27)
[2022-10-16 15:39] VITALS: BP 134/63
[2022-10-16] MEDS ORDERED: ACHD5005 PO ×2 (16:44)
[2022-10-16] MEDS ORDERED: CLN.1T PO ×2 (16:44)
--- NOTE | 2022-10-16 16:45 | Discharge Summary ---
Diagnosis/Chief Complaint Date of Admission Oct 13, 2022 at 22:14 Date of Discharge Discharge Date: Oct 16, 2022 Discharge Diagnosis HTN urgency Type II NM Discharge Summary Discharge Physical Examination Allergies: Coded Allergies: morphine (Verified Allergy, Severe, HIVES, N/V,pt has rec. Lortab in the past w/o issue, 10/23/21) Vitals & I&Os Vital Signs Date Time Temp Pulse Resp B/P (MAP) Pulse Ox O2 Delivery O2 Flow Rate FiO2 10/16/22 17:10 36.7 73 20 134/63 94 Room Air 10/16/22 03:40 0.00 0.00 10/13/22 23:18 21 General Appearance: Alert, Oriented X3, Cooperative Respiratory: Clear to Auscultation Cardiovascular: Regular Rate Psych/Mental Status: Mental Status NL Hospital Course Was the Problem List Reviewed?: Yes Uneventful course after he was admitted to ICU for Cardene drip after HTN urgency dx. Multiple meds ordered along with Cardiology consultation. BP was much improved at DC. Labs (last 24 hrs) Laboratory Tests 10/13/22 20:18: White Blood Count 7.3, Red Blood Count 4.68, Hemoglobin 12.8L, Hematocrit 40, Mean Corpuscular Volume 84, Mean Corpuscular Hemoglobin 27, Mean Corpuscular Hemoglobin Concent 32, Red Cell Distribution Width 15.1H, Platelet Count 204, Mean Platelet Volume 9.6, Immature Granulocyte % (Auto) 0, Neutrophils (%) (Aut o) 63, Lymphocytes (%) (Auto) 25, Monocytes (%) (Auto) 8, Eosinophils (%) (Auto) 2, Basophils (%) (Auto) 1, Neutrophils # (Auto) 4.6, Lymphocytes # (Auto) 1.8, Monocytes # (Auto) 0.6, Eosinophils # (Auto) 0.2, Basophils # (Auto) 0.1, Immature Granulocyte # (Auto) 0.0, Prothrombin Time 13.8, INR Comment 1.0, Activated Partial Thromboplast Time 31, Sodium Level 136, Potassium Level 3.8, Chloride Level 102, Carbon Dioxide Level 24, Anion Gap 10, Blood Urea Nitrogen 11, Creatinine 1.09, Estimat Glomerular Filtration Rate 70, BUN/Creatinine Ratio 10, Glucose Level 125H, Calcium Level 9.2, Corrected Calcium 9.2, Magnesium Level 1.4L, Total Bilirubin 0.5, Aspartate Amino Transf (AST/SGOT) 17, Alanine Aminotransferase (ALT/SGPT) 11, Alkaline Phosphatase 75, Troponin I < 0.028, B- Type Natriuretic Peptide 194.9H, Total Protein 6.3L, Albumin 4.0 10/14/22 05:00: White Blood Count 6.0, Red Blood Count 4.82, Hemoglobin 13.1L, Hematocrit 41, Mean Corpuscular Volume 84, Mean Corpuscular Hemoglobin 27, Mean Corpuscular Hemoglobin Concent 32, Red Cell Distribution Width 15.1H, Platelet Count 205, Mean Platelet Volume 9.7, Immature Granulocyte % (Auto) 1, Neutrophils (%) (Auto) 55, Lymphocytes (%) (Auto) 31, Monocytes (%) (Auto) 10, Eosinophils (%) (Auto) 3, Basophils (%) (Auto) 1, Neutrophils # (Auto) 3.3, Lymphocytes # (Auto) 1.9, Monocytes # (Auto) 0.6, Eosinophils # (Auto) 0.2, Basophils # (Auto) 0.1, Immature Granulocyte # (Auto) 0.0, Sodium Level 138, Potassium Level 3.7, Chloride Level 104, Carbon Dioxide Level 23, Anion Gap 11, Blood Urea Nitrogen 9, Creatinine 0.88, Estimat Glomerular Filtration Rate 89, BUN/Creatinine Ratio 10, Glucose Level 101, Calcium Level 9.4, Corrected Calcium 9.5, Magnesium Level 1.8, Total Bilirubin 0.4, Aspartate Amino Transf (AST/SGOT) 18, Alanine Aminotransferase (ALT/SGPT) 11, Alkaline Phosphatase 74, Total Protein 6.4, Albumin 3.9, Phosphorus Level 3.8, Triglycerides Level 110, Cholesterol Level 90, LDL Cholesterol Direct 48, VLDL Cholesterol 22, HDL Cholesterol 30L 10/14/22 10:56: Glucometer 128H 10/14/22 16:22: Glucometer 136H 10/14/22 20:20: Glucometer 132H 10/15/22 03:57: White Blood Count 7.6, Red Blood Count 5.29, Hemoglobin 14.1, Hematocrit 44, Mean Corpuscular Volume 83, Mean Corpuscular Hemoglobin 27, Mean Corpuscular Hemoglobin Concent 32, Red Cell Distribution Width 15.3H, Platelet Count 219, Mean Platelet Volume 9.7, Immature Granulocyte % (Auto) 2, Neutrophils (%) (Auto) 65, Lymphocytes (%) (Auto) 20, Monocytes (%) (Auto) 10, Eosinophils (%) (Auto) 2, Basophils (%) (Auto) 1, Neutrophils # (Auto) 5.0, Lymphocytes # (Auto) 1.6, Monocytes # (Auto) 0.7, Eosinophils # (Auto) 0.2, Basophils # (Auto) 0.1, Immature Granulocyte # (Auto) 0.1, Sodium Level 136, Potassium Level 3.8, Chloride Level 101, Carbon Dioxide Level 24, Anion Gap 11, Blood Urea Nitrogen 11, Creatinine 1.04, Estimat Glomerular Filtration Rate 74, BUN/Creatinine Ratio 11, Glucose Level 102, Calcium Level 9.9, Corrected Calcium 9.7, Phosphorus Level 4.0, Magnesium Level 1.8, Total Bilirubin 0.7, Aspartate Amino Transf (AST/SGOT) 17, Alanine Aminotransferase (ALT/SGPT) 12, Alkaline Phosphatase 82, Total Protein 6.8, Albumin 4.2 10/15/22 10:45: Glucometer 114H 10/15/22 20:28: Glucometer 138H 10/16/22 04:50: White Blood Count 7.1, Red Blood Count 5.15, Hemoglobin 14.1, Hematocrit 43, Mean Corpuscular Volume 83, Mean Corpuscular Hemoglobin 27, Mean Corpuscular Hemoglobin Concent 33, Red Cell Distribution Width 15.4H, Platelet Count 204, M chau Platelet Volume 9.6, Immature Granulocyte % (Auto) 1, Neutrophils (%) (Auto) 59, Lymphocytes (%) (Auto) 27, Monocytes (%) (Auto) 11, Eosinophils (%) (Auto) 2, Basophils (%) (Auto) 1, Neutrophils # (Auto) 4.2, Lymphocytes # (Auto) 1.9, Monocytes # (Auto) 0.7, Eosinophils # (Auto) 0.2, Basophils # (Auto) 0.1, Immature Granulocyte # (Auto) 0.1, Sodium Level 136, Potassium Level 3.9, Chloride Level 102, Carbon Dioxide Level 24, Anion Gap 10, Blood Urea Nitrogen 18, Creatinine 1.11, Estimat Glomerular Filtration Rate 68, BUN/Creatinine Ratio 16, Glucose Level 107H, Calcium Level 9.6, Corrected Calcium 9.6, Magnesium Level 1.9, Total Bilirubin 0.7, Aspartate Amino Transf (AST/SGOT) 17, Alanine Aminotransferase (ALT/SGPT) 13, Alkaline Phosphatase 77, Total Protein 6.5, Albumin 4.0 10/16/22 05:17: Glucometer 104 10/16/22 11:37: Glucometer 165H 10/16/22 15:38: Glucometer 129H Microbiology 10/13/22 MRSA Screen - Final, Complete MRSA not isolated Pending Labs Microbiology Date/Time Source Procedure Growth Status 10/13/22 22:30 Nasal MRSA Screen - Final MRSA not isolated Complete Laboratory Tests 10/13/22 20:18: White Blood Count 7.3, Red Blood Count 4.68, Hemoglobin 12.8, Hematocrit 40, Mean Corpuscular Volume 84, Mean Corpuscular Hemoglobin 27, Mean Corpuscular Hemoglobin Concent 32, Red Cell Distribution Width 15.1, Platelet Count 204, Mean Platelet Volume 9.6, Immature Granulocyte % (Auto) 0, Neutrophils (%) (Auto) 63, Lymphocytes (%) (Auto) 25, Monocytes (%) (Auto) 8, Eosinophils (%) (Auto) 2, Basophils (%) (Auto) 1, Neutrophils # (Auto) 4.6, Lymphocytes # (Auto) 1.8, Monocytes # (Auto) 0.6, Eosinophils # (Auto) 0.2, Basophils # (Auto) 0.1, Immature Granulocyte # (Auto) 0.0, Prothrombin Time 13.8, INR Comment 1.0, Activated Partial Thromboplast Time 31, Sodium Level 136, Potassium Level 3.8, Chloride Level 102, Carbon Dioxide Level 24, Anion Gap 10, Blood Urea Nitrogen 11, Creatinine 1.09, Estimat Glomerular Filtration Rate 70, BUN/Creatinine Ratio 10, Glucose Level 125, Calcium Level 9.2, Corrected Calcium 9.2, Magnesium Level 1.4, Total Bilirubin 0.5, Aspartate Amino Transf (AST/SGOT) 17, Alanine Aminotransferase (ALT/SGPT) 11, Alkaline Phosphatase 75, Troponin I < 0.028, B- Type Natriuretic Peptide 194.9, Total Protein 6.3, Albumin 4.0 10/14/22 05:00: White Blood Count 6.0, Red Blood Count 4.82, Hemoglobin 13.1, Hematocrit 41, Mean Corpuscular Volume 84, Mean Corpuscular Hemoglobin 27, Mean Corpuscular Hemoglobin Concent 32, Red Cell Distribution Width 15.1, Platelet Count 205, Mean Platelet Volume 9.7, Immature Granulocyte % (Auto) 1, Neutrophils (%) (Auto) 55, Lymphocytes (%) (Auto) 31, Monocytes (%) (Auto) 10, Eosinophils (%) (Auto) 3, Basophils (%) (Auto) 1, Neutrophils # (Auto) 3.3, Lymphocytes # (Auto) 1.9, Monocytes # (Auto) 0.6, Eosinophils # (Auto) 0.2, Basophils # (Auto) 0.1, Immature Granulocyte # (Auto) 0.0, Sodium Level 138, Potassium Level 3.7, Chloride Level 104, Carbon Dioxide Level 23, Anion Gap 11, Blood Urea Nitrogen 9, Creatinine 0.88, Estimat Glomerular Filtration Rate 89, BUN/Creatinine Ratio 10, Glucose Level 101, Calcium Level 9.4, Corrected Calcium 9.5, Magnesium Level 1.8, Total Bilirubin 0.4, Aspartate Amino Transf (AST/SGOT) 18, Alanine Aminotransferase (ALT/SGPT) 11, Alkaline Phosphatase 74, Total Protein 6.4, Albumin 3.9, Phosphorus Level 3.8, Triglycerides Level 110, Cholesterol Level 90, LDL Cholesterol Direct 48, VLDL Cholesterol 22, HDL Cholesterol 30 10/14/22 10:56: Glucometer 128 10/14/22 16:22: Glucometer 136 10/14/22 20:20: Glucometer 132 10/15/22 03:57: White Blood Count 7.6, Red Blood Count 5.29, Hemoglobin 14.1, Hematocrit 44, Mean Corpuscular Volume 83, Mean Corpuscular Hemoglobin 27, Mean Corpuscular H emoglobin Concent 32, Red Cell Distribution Width 15.3, Platelet Count 219, Mean Platelet Volume 9.7, Immature Granulocyte % (Auto) 2, Neutrophils (%) (Auto) 65, Lymphocytes (%) (Auto) 20, Monocytes (%) (Auto) 10, Eosinophils (%) (Auto) 2, Basophils (%) (Auto) 1, Neutrophils # (Auto) 5.0, Lymphocytes # (Auto) 1.6, Monocytes # (Auto) 0.7, Eosinophils # (Auto) 0.2, Basophils # (Auto) 0.1, Immature Granulocyte # (Auto) 0.1, Sodium Level 136, Potassium Level 3.8, Chloride Level 101, Carbon Dioxide Level 24, Anion Gap 11, Blood Urea Nitrogen 11, Creatinine 1.04, Estimat Glomerular Filtration Rate 74, BUN/Creatinine Ratio 11, Glucose Level 102, Calcium Level 9.9, Corrected Calcium 9.7, Phosphorus Level 4.0, Magnesium Level 1.8, Total Bilirubin 0.7, Aspartate Amino Transf (AST/SGOT) 17, Alanine Aminotransferase (ALT/SGPT) 12, Alkaline Phosphatase 82, Total Protein 6.8, Albumin 4.2 10/15/22 10:45: Glucometer 114 10/15/22 20:28: Glucometer 138 10/16/22 04:50: White Blood Count 7.1, Red Blood Count 5.15, Hemoglobin 14.1, Hematocrit 43, Mean Corpuscular Volume 83, Mean Corpuscular Hemoglobin 27, Mean Corpuscular Hemoglobin Concent 33, Red Cell Distribution Width 15.4, Platelet Count 204, Mean Platelet Volume 9.6, Immature Granulocyte % (Auto) 1, Neutrophils (%) (Auto) 59, Lymphocytes (%) (Auto) 27, Monocytes (%) (Auto) 11, Eosinophils (%) (Auto) 2, Basophils (%) (Auto) 1, Neutrophils # (Auto) 4.2, Lymphocytes # (Auto) 1.9, Monocytes # (Auto) 0.7, Eosinophils # (Auto) 0.2, Basophils # (Auto) 0.1, Immature Granulocyte # (Auto) 0.1, Sodium Level 136, Potassium Level 3.9, Chloride Level 102, Carbon Dioxide Level 24, Anion Gap 10, Blood Urea Nitrogen 18, Creatinine 1.11, Estimat Glomerular Filtration Rate 68, BUN/Creatinine Ratio 16, Glucose Level 107, Calcium Level 9.6, Corrected Calcium 9.6, Magnesium Level 1.9, Total Bilirubin 0.7, Aspartate Amino Transf (AST/SGOT) 17, Alanine Aminotransferase (ALT/SGPT) 13, Alkaline Phosphatase 77, Total Protein 6.5, Albumin 4.0 10/16/22 05:17: Glucometer 104 10/16/22 11:37: Glucometer 165 10/16/22 15:38: Glucometer 129 Discharge Home Medications: Active Scripts Active Clonidine HCl 0.1 Mg Tablet 0.1 Mg PO Q6H PRN Hydrocodone-Acetamin 5-325 mg (Hydrocodone/Acetaminophen) 5 Mg-325 Mg Tablet 1 Ea PO Q6H PRN Hydrochlorothiazide 12.5 Mg Tablet 12.5 Mg PO DAILY Hydralazine HCl 50 Mg Tablet 50 Mg PO Q8H Hold for systolic blood pressure less than 110 mmHg Metoprolol Succinate 100 Mg Tab.er.24h 100 Mg PO DAILY Amlodipine Besylate 10 Mg Tablet 10 Mg PO DAILY Hold for systolic blood pressure less than 100 mmHg Lisinopril 40 Mg Tablet 40 Mg PO DAILY Reported Sucralfate 1 Gram Tablet 1 Gm PO ACHS Atorvastatin Calcium 40 Mg Tablet 40 Mg PO HS Ferosul (Ferrous Sulfate) 325 Mg (65 Mg Iron) Tablet 325 Mg PO DAILY Pantoprazole Sodium 40 Mg Tablet.dr 40 Mg PO DAILY LAST FILED 08-02-2022 #30 DAY SUPPLY Tizanidine HCl 6 Mg Capsule 6 Mg PO TID LAST FILLED 12-06-2021 # DAY SUPPLY Aspirin EC (Aspirin) 81 Mg Tablet. 81 Mg PO HS Gabapentin 100 Mg Capsule 100 Mg PO DAILY Duloxetine HCl 60 Mg Capsule. 60 Mg PO DAILY Buspirone HCl 15 Mg Tablet 15 Mg PO DAILY LAST FILLED 02-27-2022 #9090 DAY SUPPLY Trelegy Ellipta 100-62.5-25 (Fluticasone/Umeclidin/Vilanter) 100-62.5 Blst.w.dev 1 Puff INH 1200 Ventolin Hfa (Albuterol Sulfate) 18 Gm Hfa.aer.ad 2 Puff INH Q6H PRN Amitriptyline HCl 100 Mg Tablet 100 Mg PO HS Montelukast Sodium 10 Mg Tablet 10 Mg PO HS Allopurinol 300 Mg Tablet 150 Mg PO DAILY TAKES 1/2 (300MG) TABLET Cetirizine HCl 10 Mg Tablet 10 Mg PO DAILY Instructions to patient/family Please see electronic discharge instructions given to patient. CARLOS NUNN DO Oct 16, 2022 16:45
[2022-10-16 17:10] VITALS: BP 134/63
--- NOTE | 2022-10-16 17:17 | Progress Note - Cardiology ---
Cardiology SOAP Progress Note Subjective: No cp or palp or syncope No shortness of breath at rest No n/v/d No focal weakness Wishes to go home Objective: I&O/Vital Signs 10/16/22 10/16/22 10/16/22 10/16/22 07:00 07:35 08:00 11:32 Temp 37.0 37.0 Pulse 90 87 85 Resp 18 16 B/P (MAP) 170/79 (109) 113/62 (79) Pulse Ox 95 95 92 O2 Delivery Room Air Room Air Room Air 10/16/22 10/16/22 10/16/22 10/16/22 13:00 15:29 15:39 17:10 Temp 36.7 36.7 Pulse 65 73 73 Resp 20 20 B/P (MAP) 134/63 (86) 134/63 Pulse Ox 92 94 94 O2 Delivery Room Air Room Air Room Air 10/16/22 00:00 Intake Total 1100 ml Output Total 1200 ml Balance -100 ml Weight (Pounds): 172 Weight (Ounces): 5.0 Weight (Calculated Kilograms): 78.015337 Constitutional: AAO x 3, well-developed, well-nourished Respiratory: No accessory muscle use; chest expansion is symmetric, chest is bilaterally symmetric, other (good, bilat air entry) Cardiovascular: regular rate-rhythm, systolic murmur (soft CURTIS at card base) Gastrointestional: No tender; soft; No guarding, No rebound; audible bowel sounds Extremities: No clubbing, No cyanosis, No significant edema Neurologic/Psychiatric: oriented x 3, other (moves all limbs equally) Skin: No rash on exposed areas, No ulcerations on exposed areas Results/Procedures: Labs Laboratory Tests 10/15/22 20:28: Glucometer 138H 10/16/22 04:50: White Blood Count 7.1, Red Blood Count 5.15, Hemoglobin 14.1, Hematocrit 43, Mean Corpuscular Volume 83, Mean Corpuscular Hemoglobin 27, Mean Corpuscular Hemoglobin Concent 33, Red Cell Distribution Width 15.4H, Platelet Count 204, Mean Platelet Volume 9.6, Immature Granulocyte % (Auto) 1, Neutrophils (%) (Auto) 59, Lymphocytes (%) (Auto) 27, Monocytes (%) (Auto) 11, Eosinophils (%) (Auto) 2, Basophils (%) (Auto) 1, Neutrophils # (Auto) 4.2, Lymphocytes # (Auto) 1.9, Monocytes # (Auto) 0.7, Eosinophils # (Auto) 0.2, Basophils # (Auto) 0.1, Immature Granulocyte # (Auto) 0.1, Sodium Level 136, Potassium Level 3.9, Chloride Level 102, Carbon Dioxide Level 24, Anion Gap 10, Blood Urea Nitrogen 18, Creatinine 1.11, Estimat Glomerular Filtration Rate 68, BUN/Creatinine Ratio 16, Glucose Level 107H, Calcium Level 9.6, Corrected Calcium 9.6, Magnesium Level 1.9, Total Bilirubin 0.7, Aspartate Amino Transf (AST/SGOT) 17, Alanine Aminotransferase (ALT/SGPT) 13, Alkaline Phosphatase 77, Total Protein 6.5, Albumin 4.0 10/16/22 05:17: Glucometer 104 10/16/22 11:37: Glucometer 165H 10/16/22 15:38: Glucometer 129H Microbiology 10/13/22 MRSA Screen - Final, Complete MRSA not isolated Laboratory Tests 10/15/22 03:57 10/16/22 04:50 A/P: Assessment: Severe hypertension - controlled on multi-drug regimen Card cath on 09/25/[address] Nunez: Normal left heart pressures. No significant coronary artery disease although the distal left anterior descending coronary artery tapers rapidly in its distal third which could be a sign of coronary spasm and/or distal microvascular dysfunction. The right radial artery is small in caliber but did not have any focal atherosclerosis H/o mild - Echo of 09/25/[address] Nunez: mild conc LVH, LVEF 60-65%, grade 1 diastolic dysfunction, mild with mean grad 12 mmHg and valve area 1.5 sq cm, mild AI, PASP 22 + 5 mmHg - Echocardiogram of 10-14-22 showed LVEF 60-65%. Grade 1 diastolic dysfunction. Mild MR. Mild AoR. PASP 20-25 mmHg H/o hyperlipidemia H/o GERD Plan: * BP improved with addition of antihypertensives and resumption of home medications - multi-drug regimen * Monitor labs * We have discussed at length with son and patient regarding antihypertensive regimen and answered multiple questions * Home today with out pt f/u [facility] BARRETT [facility] CCDS Oct 16, 2022 17:17
[2022-10-17] MEDS ORDERED: LIDO1ADH78 TP (19:22)
[2022-10-17] MEDS ORDERED: CYCL10TA25 PO (19:22)
[2022-10-17] MEDS ORDERED: METH4TAB10 PO (19:22)
== END 2022-10-16 17:10 | disposition home or self-care (01) ==
LOC: EDUNIT# 20:00 → ER 20:04 → UNDOADMOB 22:14 → ICU 22:14 → 4TH 10-15 15:40 → ICU 10-15 15:40 → UNDODISOB 10-16 17:10
PROVIDERS: ADMIT Internal Medicine; ATTEND Internal Medicine
DX: I16.0 Hypertensive urgency (principal); I21.A1 Myocardial infarction type 2; I08.0 Rheumatic disorders of both mitral and aortic valves; E78.5 Hyperlipidemia, unspecified; K21.9 Gastro-esophageal reflux disease without esophagitis; R07.9 Chest pain, unspecified; R77.8 Other specified abnormalities of plasma proteins; M10.9 Gout, unspecified; N18.6 End stage renal disease; Z79.899 Other long term (current) drug therapy; Z87.891 Personal history of nicotine dependence
CPT/HCPCS: 36415; 70450; 71045; 80053; 80061; 82947; 83735; 83880; 84100; 84484; 85025; 85610; 85730; 87081; 93005; 93041; 93306; 94760; 96366; 96372; 96375; 96376; G0378

== ENCOUNTER 2022-10-17 15:29 | Emergency (ER) | payer MEDICARE, MEDICAID ==
[~2022-10-17] VITALS: Ht 175 cm; Wt 84.3 kg
[~2022-10-17 15:29] MED LIST changes: +CLN.1T PO; +FERR325T24 PO; +HYDR-3923 PO; +HYDR-3924 PO; +HYDR12.56 PO; +LISI10TA25 PO; +PANT40TA52 PO
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
[2022-10-17] MEDS ORDERED: ORPHENADRINE 60 MG/2 ML (NORFLEX) AMP (ED ONLY) IM ONE (16:45)
[2022-10-17] MEDS ORDERED: KETOROLAC 30 MG/ML VIAL IM ONE (16:45)
--- NOTE | 2022-10-17 17:48 | Diagnostic Imaging Report ---
INDICATION: Back pain status post fall with lower extremity radiculopathy. TECHNIQUE: Multiple contiguous axial images were obtained through the lumbar spine without the use of intravenous contrast. Sagittal and coronal reformations were then performed. Auto Exposure Controls were utilized during the CT exam to meet ALARA standards for radiation dose reduction. Comparison made with 10/23/2021. Patient has had previous posterior fusion from L3 through S1 with pedicle screws unchanged in position. There is some lucency about the left L2 pedicle screw which is unchanged from the previous study. Patient has had laminectomy from L3 through S1. There is disc space narrowing throughout the lumbar levels. There is no acute fracture. There is facet degenerative change throughout the lumbar levels. There is no overt canal narrowing. IMPRESSION: Degenerative changes throughout the lumbar spine with multifocal prior lumbar spine fusion. No acute bony abnormality. Dictated by: Dictated on workstation # [id number]
--- NOTE | 2022-10-17 17:56 | Diagnostic Imaging Report ---
EXAMINATION: Pelvis, single view. Right hip, 2 views. Left hip, 2 views. COMPARISON: January 08, 2022. HISTORY: 77-year-old male, pelvic and bilateral hip pain. FINDINGS: The pubic symphysis and sacroiliac joints are normally aligned. There is lumbar spine hardware and laminectomy changes of at least L3, L4, L5. There are bilateral total hip prostheses. The hardware appears intact. There is no identified periprosthetic lucency. There is no identified acute fracture. IMPRESSION: 1. No identified acute bony abnormality of the pelvis or either hip. Dictated by: Dictated on workstation # [id number]
--- NOTE | 2022-10-17 17:57 | Diagnostic Imaging Report ---
EXAMINATION: Radiographs of the sacrum and coccyx, 3 views. COMPARISON: None. HISTORY: 77-year-old male, pelvic and sacral and coccygeal pain. FINDINGS: There is no radiographically apparent displaced fracture of the sacrum or coccyx. The sacroiliac joints are grossly unremarkable in appearance. IMPRESSION: 1. No radiographically apparent displaced fracture of the sacrum or coccyx. Dictated by: Dictated on workstation # [id number]
[2022-10-17] MEDS ORDERED: HYDROmorphone 2 MG/ML VIAL (DILAUDID) IM ONE (18:30)
[2022-10-17] MEDS ORDERED: METH4TAB10 PO (19:22)
[2022-10-17] MEDS ORDERED: CYCL10TA25 PO (19:22)
[2022-10-17] MEDS ORDERED: LIDO1ADH78 TP (19:22)
[2022-10-17 19:25] VITALS: BP 139/84
== END 2022-10-17 19:33 | disposition home or self-care (01) ==
LOC: EDUNIT# 15:29 → ER 15:30
DX: M54.42 Lumbago with sciatica, left side (principal); Z87.891 Personal history of nicotine dependence
CPT/HCPCS: 72131; 72220; 73523

== ENCOUNTER 2023-02-07 18:11 | Inpatient (IN) | payer MEDICARE, MEDICAID ==
[~2023-02-07] VITALS: Ht 177 cm; Wt 83.6 kg
[~2023-02-07 18:11] MED LIST changes: +DICY-11 PO; -DICY10CA12 PO; -EZET10TA17 PO; +EZET10TA83 PO; +LIDO1ADH78 TP; +METH4TAB10 PO
[2023-02-07] MEDS ORDERED: ACETAMINOPHEN 500 MG TABLET PO PRN (18:15)
[2023-02-07] MEDS ORDERED: NS IV 1000 ML 1,000 ML IV SCH (18:15)
[2023-02-07] MEDS ORDERED: CEFEPIME INJECTION 1,000 MG in NS (IVPB) 50 ML 50 ML IV ONE (18:15)
[2023-02-07] MEDS ORDERED: IBUPROFEN 800 MG TABLET PO ONE (18:15)
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
[2023-02-07] MEDS ORDERED: methylPREDNISolone INJ 125 MG VIAL IVP ONE (18:30)
[2023-02-07 18:51] LABS: BASOPHILS % (AUTO) 1 % (0-10); EOSINOPHILS # (AUTO) 0.1 10^3/uL (0.0-0.3); EOSINOPHILS % (AUTO) 2 % (0-10); HEMATOCRIT 38 % (40-54); HEMOGLOBIN 12.9 g/dL (13.3-17.7); LYMPHOCYTES # (AUTO) 1.3 10^3/uL (1.0-4.0); LYMPHOCYTES % (AUTO) 19 % (12-44); MEAN CORPUSCULAR HEMOGLOBIN 30 pg (25-34); MEAN CORPUSCULAR HGB CONC 34 g/dL (32-36); MEAN CORPUSCULAR VOLUME 89 fL (80-99); MEAN PLATELET VOLUME 9.7 fL (9.0-12.2); MONOCYTES # (AUTO) 0.6 10^3/uL (0.0-1.0); MONOCYTES % (AUTO) 8 % (0-12); NEUTROPHILS # (AUTO) 4.7 10^3/uL (1.8-7.8); NEUTROPHILS % (AUTO) 70 % (42-75); PLATELET COUNT 208 10^3/uL (130-400); WHITE BLOOD COUNT 6.7 10^3/uL (4.3-11.0)
--- NOTE | 2023-02-07 18:58 | Diagnostic Imaging Report ---
INDICATION: Chest pain. COMPARISON: Comparison is made with prior examination of 10/13/2022. FINDINGS: The heart size is normal. There is some venous congestion. Loop recorder overlies the left hilum. There is no pleural effusion or pneumothorax. Mediastinum is unremarkable. There is no evidence of lobar pneumonia. There has been a right shoulder replacement. IMPRESSION: Mild central pulmonary venous congestion. Dictated by: Dictated on workstation # [id number]
[2023-02-07] MEDS ORDERED: NITROGLYCERIN 2% OINT 1 GM UNIT DOSE PACKET TOP ONE (19:00)
[2023-02-07 19:05] LABS: ALBUMIN 3.8 GM/DL (3.2-4.5); CHLORIDE 104 MMOL/L (98-107); SODIUM 140 MMOL/L (135-145)
[2023-02-07 19:06] LABS: INR 1.1 (0.8-1.4); PROTHROMBIN TIME PATIENT 14.5 SEC (12.2-14.7)
[2023-02-07 19:07] LABS: AMYLASE 49 U/L (25-125); GLUCOSE 115 MG/DL (70-105)
[2023-02-07 19:08] LABS: TOTAL PROTEIN 6.5 GM/DL (6.4-8.2)
[2023-02-07 19:09] LABS: CARBON DIOXIDE 24 MMOL/L (21-32); FIBRIN DEGRADATION PRODUCTS 1.42 UG/ML (0.00-0.49)
[2023-02-07 19:10] LABS: BILIRUBIN,TOTAL 0.8 MG/DL (0.1-1.0)
[2023-02-07 19:11] LABS: ALKALINE PHOSPHATASE 70 U/L (40-136); CREATININE SERUM 0.99 MG/DL (0.60-1.30); GFR ESTIMATED 78
[2023-02-07 19:12] LABS: BUN/CREATININE RATIO 10
[2023-02-07 19:14] LABS: ALANINE AMINOTRANSFERASE 8 U/L (0-55)
[2023-02-07 19:15] LABS: MAGNESIUM 1.4 MG/DL (1.6-2.4)
[2023-02-07] MEDS ORDERED: NS 100 ML (IVPB) BAG IV ONE (19:15)
[2023-02-07] MEDS ORDERED: IOHEXOL 350 MG/ML 100 ML (OMNIPAQUE 350) VIAL IV ONE (19:15)
[2023-02-07 19:16] LABS: CREATINE KINASE 56 U/L (30-200); LIPASE < 4 U/L (8-78)
[2023-02-07 19:23] LABS: CREATINE KINASE MB 1.5 NG/ML (<6.6)
[2023-02-07] MEDS ORDERED: POTASSIUM CHLORIDE 10 MEQ TABLET PO ONE (19:30)
[2023-02-07] MEDS ORDERED: FUROSEMIDE INJECTION 40 MG/4 ML VIAL IVP ONE (19:30)
[2023-02-07 19:39] LABS: BACTERIA,URINE TRACE /HPF; BILIRUBIN,URINE NEGATIVE (NEGATIVE); CLARITY,URINE CLEAR; COLOR,URINE YELLOW; GLUCOSE, URINE (UA) NEGATIVE (NEGATIVE); KETONES,URINE NEGATIVE (NEGATIVE); LEUKOCYTE ESTERASE ,URINE NEGATIVE (NEGATIVE); NITRITE,URINE NEGATIVE (NEGATIVE); PROTEIN,URINE NEGATIVE (NEGATIVE); SQUAMOUS EPITHELIAL CELL,UR RARE /HPF
--- NOTE | 2023-02-07 19:51 | Diagnostic Imaging Report ---
INDICATION: Chest pain, dyspnea, fever. COMPARISON: Radiographs from same date TECHNIQUE: Multiple contiguous axial CT images are obtained through the chest after administration of intravenous contrast dated 02/07/2023. Sagittal and coronal images are reviewed. This includes coronal MIP reformatted images. All CT scans use one or more of the following dose optimizing techniques: Automated exposure control, MA and/or KvP adjustment based on patient size and exam type or iterative reconstruction. FINDINGS: Calcified mediastinal and hilar lymph nodes are present. No significant adenopathy of the chest. No aneurysmal dilatation of thoracic aorta. The heart is within normal limits in size. No significant pericardial effusion. Small right and tiny left dependently layering pleural effusions. The trachea is patent. No pneumothorax. A few calcified granuloma are present within the lungs. The lungs are otherwise clear. Loop recorder is noted within the anterior left chest. No significant filling defect within the central or segmental pulmonary arteries. Subsegmental pulmonary arteries, particularly within the upper lobe not optimally visualized secondary to spray artifact from the superior vena cava. Tiny hiatal hernia. Cholecystectomy. The visualized upper abdomen is otherwise grossly unremarkable. Right total shoulder arthroplasty. Chronic left-sided rib fractures. Scattered osseous degenerative changes without acute osseous abnormality. IMPRESSION: No significant pulmonary embolism within the limits of the exam. Small right and tiny left dependently layering pleural effusions. Evidence of chronic granulomatous disease. Dictated by: Dictated on workstation # [id number]
[2023-02-07] MEDS ORDERED: fentaNYL INJECTION 100 MCG/2 ML VIAL IVP ONE (20:00)
[2023-02-07] MEDS ORDERED: hydrALAZINE INJECTION 20 MG/ML VIAL IV ONE (20:00)
[2023-02-07] MEDS ORDERED: MAGNESIUM 1 GM/100 ML IVPB 100 ML IV ONE (20:00)
[2023-02-07] MEDS ORDERED: LIDOCAINE UROJET 2% GEL 10 ML PKG ONE (21:22)
[2023-02-07] MEDS ORDERED: diphenhydrAMINE 25 MG TABLET PO PRN (21:45)
[2023-02-07] MEDS ORDERED: BISACODYL 10 MG SUPPOSITORY PR PRN (21:45)
[2023-02-07] MEDS ORDERED: NS IV 500 ML 500 ML IV PRN (21:45)
[2023-02-07] MEDS ORDERED: diphenhydrAMINE INJ 50 MG/ML VIAL IVP PRN (21:45)
[2023-02-07] MEDS ORDERED: CALCIUM CARBONATE 500 MG CHEW TABLET PO PRN (21:45)
[2023-02-07] MEDS ORDERED: ACETAMINOPHEN 325 MG TABLET PO PRN (21:45)
[2023-02-07] MEDS ORDERED: LACTULOSE SYRUP 10GM/15ML 30ML UDC PO PRN (21:45)
[2023-02-07] MEDS ORDERED: MILK OF MAGNESIA 400 MG/5 ML 30 ML UDC PO PRN (21:45)
[2023-02-07] MEDS ORDERED: amLODIPine 5 MG TABLET PO ONE (21:45)
[2023-02-07] MEDS ORDERED: cloNIDine 0.1 MG TABLET PO PRN (21:45)
[2023-02-07] MEDS ORDERED: LORazepam 0.5 MG TABLET PO PRN (21:45)
[2023-02-07] MEDS ORDERED: ONDANSETRON 4 MG ORAL DISSOLVE TABLET PO PRN (21:45)
[2023-02-07] MEDS ORDERED: MELATONIN 3 MG TABLET PO PRN (21:45)
[2023-02-07] MEDS ORDERED: ANTACID SUSPENSION 30 ML UDC PO PRN (21:45)
[2023-02-07] MEDS ORDERED: ONDANSETRON INJECTION 4 MG/2 ML (SDV) IV PRN (21:45)
[2023-02-07 21:49] VITALS: BP 175/127
[2023-02-07] MEDS ORDERED: RT-Ipratropium/Albuterol NEB 3 ML VIAL INH PRN (22:00)
--- NOTE | 2023-02-07 22:26 | Tele-ICU Progress Note ---
Progress Note 77M with CAD, COPD, CHF, severe uncontrolled hypertension, h/o PE presented with CP. Began 2 nights ago and worsened today. Bilateral chest. Has had nonproductive cough, SOB. CP worse with exertion, breathing or coughing. Incidental finding of fever 102.2, c/o chills. Has been afebrile since arrival to ED. Initial BP was 251/129. Known to have frequent elevations >200/100. In ED, sepsis protocol initiated. Given IVF, nitropaste, cefepime, solumedrol, lasix, K, Mag, hydralazine and fentanyl. He refused ABGs. EKG was unremarkable. CXR with e/o CHF and COPD. CTA negative for PE, noted to have small effusions. EKGs uremarkable. Noted to be markedly dyspneic with minimal exertion, no desaturation during this episode. - CP: . Now resolved. Sounds pleuritic or MSK in nature. EKGs and troponins negative. Will continue serial troponin x3. Focus on pain control. - hypertensive urgency: given chronic severe htn and low evidence for ACS, recommend a 20% correction for the first 8-8 hrs. Tonight goal SBP 170-190. Can decrease to 150-170 in AM. - dyspnea: secondary to CHF vs COPD vs viral URI with bronchospasm. Any of the 3 could be the etiology of the CP. ---lasix and nitro given ---solumedrol given x1, will eval in AM to see if he needs ongoing dosing. ---COVID/flu negative ---scheduled and PRN duonebs - hypoK: repleted - hypomag: repeleted - sepsis: if fever of 102.2 is accurate, he does meet SIRS criteria. Although, at this time, suspicion for bacterial infection is low. Given critical illness, empiric abx warranted at this time. ---continue cefepime ---cultures pending ---descalate abx as more data becomes available Patient assessed via real time audiovisual communication system. CCT 12 min Focused Exam Lactate Level 02/07/23 18:43: Lactic Acid Level 1.29 Height, Weight, BMI Height: 5'9.00" Weight: 172lbs. 5.0oz. 78.331715po; 29.00 BMI Method:Stated Lactic Acid Level Laboratory Tests Test 02/07/23 18:43 Lactic Acid Level 1.29 MMOL/L (0.50-2.00) DULCE MORALES MD Feb 07, 2023 22:26
[2023-02-07] MEDS: ENOXAPARIN 40 MG/0.4 ML SYRINGE SC SCH (22:57)
[2023-02-07] MEDS: oxyCODONE IMMEDIATE RELEASE 5 MG TABLET PO PRN (22:58)
[2023-02-07] MEDS: HYDROmorphone INJECTION 2 MG/ML VIAL IV PRN (23:35)
[2023-02-08] MEDS: LABETALOL 5 mg/ml 4 ML SINGLE DOSE SYRINGE IV PRN ×4 (00:32→19:01)
[2023-02-08] MEDS: CEFEPIME INJECTION 1,000 MG in NS (IVPB) 50 ML 50 ML IV SCH ×4 (00:33→19:01)
[2023-02-08] MEDS: NITROGLYCERIN 2% OINT 1 GM UNIT DOSE PACKET TOP SCH ×5 (00:34→23:49)
[2023-02-08] MEDS: HYDROmorphone INJECTION 2 MG/ML VIAL IV PRN ×3 (01:31→14:01)
[2023-02-08 04:26] LABS: BASOPHILS % (AUTO) 0 % (0-10); EOSINOPHILS % (AUTO) 0 % (0-10); HEMATOCRIT 41 % (40-54); HEMOGLOBIN 13.7 g/dL (13.3-17.7); LYMPHOCYTES # (AUTO) 0.6 10^3/uL (1.0-4.0); LYMPHOCYTES % (AUTO) 13 % (12-44); MEAN CORPUSCULAR HEMOGLOBIN 30 pg (25-34); MEAN CORPUSCULAR HGB CONC 33 g/dL (32-36); MEAN CORPUSCULAR VOLUME 89 fL (80-99); MEAN PLATELET VOLUME 9.7 fL (9.0-12.2); MONOCYTES # (AUTO) 0.1 10^3/uL (0.0-1.0); MONOCYTES % (AUTO) 2 % (0-12); NEUTROPHILS # (AUTO) 3.8 10^3/uL (1.8-7.8); NEUTROPHILS % (AUTO) 85 % (42-75); PLATELET COUNT 236 10^3/uL (130-400); WHITE BLOOD COUNT 4.5 10^3/uL (4.3-11.0)
[2023-02-08 04:42] LABS: ALBUMIN 4.1 GM/DL (3.2-4.5); POTASSIUM 3.5 MMOL/L (3.6-5.0)
[2023-02-08 04:43] LABS: CALCIUM 9.5 MG/DL (8.5-10.1)
[2023-02-08 04:46] LABS: BILIRUBIN,TOTAL 0.7 MG/DL (0.1-1.0)
[2023-02-08 04:48] LABS: CREATININE SERUM 1.14 MG/DL (0.60-1.30); PHOSPHORUS 3.2 MG/DL (2.3-4.7)
[2023-02-08 04:51] LABS: MAGNESIUM 1.8 MG/DL (1.6-2.4)
[2023-02-08] MEDS: MAGNESIUM 1 GM/100 ML IVPB 100 ML IV SCH ×3 (05:02→06:53)
[2023-02-08] MEDS: POTASSIUM CL 10MEQ/50ML IVPB 50 ML IV SCH (05:02)
[2023-02-08] MEDS: POTASSIUM CHLORIDE 20 MEQ TABLET PO SCH (05:02)
[2023-02-08] MEDS: inSUlin ASPART 1 UNIT/0.01 ML (PER UNIT) SC SCH ×4 (05:34→21:31)
[2023-02-08] MEDS: oxyCODONE IMMEDIATE RELEASE 5 MG TABLET PO PRN (05:41)
--- NOTE | 2023-02-08 07:56 | Consultation-Cardiology ---
HPI-Cardiology Cardiology Consultation: Date of Consultation 02/08/23 Time Seen by a Provider: 08:10 Date of Admission 02-07-23 Attending Physician Og Parra - [facility] Admitting Physician Admitting Physician: Carlos Combs DO Attending Physician: Carlos Combs DO Consulting Physician Eli Krueger MD HPI: Chief Complaint: Chest pain Mr. Crockett is a 77 yr old male admitted to ICU 7 from the ED with gen weakness, fever, chills, dyspnea, dysuria, diarrhea, abdominal discomfort and nausea. He reports symptoms started about 3-4 days ago and have progressively been getting worse. He reports he has chronic dyspnea, but feels it has been somewhat worse the last couple days. He reports chronic chest discomfort which has not changed. He reports his blood pressure has been high the last several days at home. He reports he has been taking his home medications. No LE swelling Review of Systems-Cardiology Review of Systems Constitutional: No chills, No fever, No malaise Eyes: No vision change Ears/Nose/Throat: No epistaxis, No recent hearing loss Respiratory: As described under HPI Cardiovascular: As described under HPI Gastrointestinal: As described under HPI Genitourinary: As described under HPI; No hematuria Musculoskeletal: As describe under HPI Skin: No rash on exposed areas, No ulcerations on exposed areas Psychiatric/Neurological: No seizure, No focal weakness, No syncope Hematologic: No bleeding abnormalities SJE-Nlxutg-Tmdekx Hx Patient Social History Smoking Status: Former Smoker Former smoker/When Quit: Apr 28, 1993 2nd Hand Smoke Exposure: No Alcohol Use?: No Pt feels they are or have been: No Tobacco type used: Cigarettes Immunizations Up To Date Tetanus Booster (TDap): Unknown Date of Pneumonia Vaccine: Nov 25, 2016 Date of Influenza Vaccine: Jan 12, 2019 Past Medical History PMH As described under Assessment. Family Medical History Family Medical History: He reports his mother had CAD and an PA. Family History: Cardiovascular disease 19 MOTHER Myocardial infarction 19 MOTHER, Onset:62 G8 SISTER Allergies and Home Medications Allergies Coded Allergies: morphine (Verified Allergy, Severe, HIVES, N/V,pt has rec. Lortab in the past w/o issue, 10/23/21) Patient Home Medication List Albuterol Sulfate (Ventolin Hfa) 18 Gm Hfa.aer.ad, 2 PUFF INH Q6H PRN for SHORTNESS OF BREATH, (Reported) Entered as Reported by: ANGELY WHITESIDE on 11/26/18 1024 Allopurinol (Allopurinol) 300 Mg Tablet, 150 MG PO DAILY, (Reported) Entered as Reported by: ANA M GOLDSTEIN on 12/11/17 1119 Amitriptyline HCl (Amitriptyline HCl) 100 Mg Tablet, 100 MG PO HS, (Reported) Entered as Reported by: ANA M GOLDSTEIN on 10/22/18 1027 Amlodipine Besylate (Amlodipine Besylate) 10 Mg Tablet, 10 MG PO DAILY Prescribed by: LISSET GRANADO on 10/16/22 1203 Aspirin (Aspirin EC) 81 Mg Tablet.dr, 81 MG PO HS, (Reported) Entered as Reported by: TRACY PEGUERO on 09/25/21 1408 Atorvastatin Calcium (Atorvastatin Calcium) 40 Mg Tablet, 40 MG PO HS, (Reported) Entered as Reported by: MURRAY CULVER on 10/14/22 0924 Buspirone HCl (Buspirone HCl) 15 Mg Tablet, 15 MG PO DAILY, (Reported) Entered as Reported by: BALBIR YUAN on 11/19/19 1908 Cetirizine HCl (Cetirizine HCl) 10 Mg Tablet, 10 MG PO DAILY, (Reported) Entered as Reported by: SHIRA VAZ on 04/25/15 0821 Clonidine HCl (Clonidine HCl) 0.1 Mg Tablet, 0.1 MG PO Q6H PRN for SBP>170 Prescribed by: CARLOS COMBS on 10/16/22 1644 Cyclobenzaprine HCl (Cyclobenzaprine HCl) 10 Mg Tablet, 10 MG PO TID Prescribed by: Emily Ramirez on 10/17/22 1922 Duloxetine HCl (Duloxetine HCl) 60 Mg Capsule.dr, 60 MG PO DAILY, (Reported) Entered as Reported by: HELIO OSBORN on 02/23/20 1148 Ferrous Sulfate (Ferosul) 325 Mg (65 Mg Iron) Tablet, 325 MG PO DAILY, (Reported) Entered as Reported by: MURRAY CULVER on 10/14/22 0924 Fluticasone/Umeclidin/Vilanter (Trelegy Ellipta 100-62.5-25) 100-62.5 Blst.w.dev, 1 PUFF INH 1200, (Reported) Entered as Reported by: WAI FOSTER on 01/18/19 1033 Gabapentin (Gabapentin) 100 Mg Capsule, 100 MG PO DAILY, (Reported) Entered as Reported by: HELIO OSBORN on 02/23/20 1148 Hydralazine HCl (Hydralazine HCl) 50 Mg Tablet, 50 MG PO Q8H Prescribed by: LISSET GRANADO on 10/16/22 1210 Hydrochlorothiazide (Hydrochlorothiazide) 12.5 Mg Tablet, 12.5 MG PO DAILY Prescribed by: LISSET GRANADO on 10/16/22 1227 Hydrocodone/Acetaminophen (Hydrocodone-Acetamin 5-325 mg) 5 Mg-325 Mg Tablet, 1 EA PO Q6H PRN for PAIN-MODERATE (5-7) Prescribed by: CARLOS COMBS on 10/16/22 1645 Lidocaine (Lidocaine) 4 % Adh..patch, 1 EACH TP DAILY Prescribed by: Emily Ramirez on 10/17/22 192 Lisinopril (Lisinopril) 40 Mg Tablet, 40 MG PO DAILY Prescribed by: LISSET GRANADO on 10/16/22 1203 Methylprednisolone (Methylprednisolone Dose Pack) 4 Mg Tab.ds.pk, 4 MG PO UD Prescribed by: Emily Ramirez on 10/17/22 192 Metoprolol Succinate (Metoprolol Succinate) 100 Mg Tab.er.24h, 100 MG PO DAILY Prescribed by: LISSET GRANADO on 10/16/22 1203 Montelukast Sodium (Montelukast Sodium) 10 Mg Tablet, 10 MG PO HS, (Reported) Entered as Reported by: ANA M GOLDSTEIN on 12/11/17 1329 Pantoprazole Sodium (Pantoprazole Sodium) 40 Mg Tablet.dr, 40 MG PO DAILY, (Reported) Entered as Reported by: MURRAY CULVER on 10/14/22 0924 Sucralfate (Sucralfate) 1 Gram Tablet, 1 GM PO ACHS, (Reported) Entered as Reported by: MURRAY CULVER on 10/14/22 0924 Tizanidine HCl (Tizanidine HCl) 6 Mg Capsule, 6 MG PO TID, (Reported) Entered as Reported by: TRACY PEGUERO on 09/25/21 1409 Physical Exam-Cardiology Physical Exam Vital Signs/I&O 02/07/23 02/07/23 02/07/23 02/07/23 22:30 22:45 23:00 23:59 Pulse 117 115 116 Resp 19 17 24 B/P (MAP) 214/111 (145) 199/111 (140) 192/139 (156) Pulse Ox 93 93 96 98 O2 Delivery Nasal Cannula Nasal Cannula Nasal Cannula Nasal Cannula O2 Flow Rate 2.00 2.00 2.00 2.00 02/08/23 02/08/23 02/08/23 02/08/23 00:00 00:00 00:09 01:00 Temp 36.4 Pulse 109 112 95 Resp 12 19 B/P (MAP) 190/104 (132) 171/96 (121) Pulse Ox 94 94 O2 Delivery Nasal Cannula Nasal Cannula O2 Flow Rate 2.00 2.00 02/08/23 02/08/23 02/08/23 02/08/23 02:00 03:00 04:00 04:00 Temp 36.0 Pulse 99 99 Resp 18 15 B/P (MAP) 161/110 (127) 170/94 (119) Pulse Ox 92 94 97 O2 Delivery Nasal Cannula Nasal Cannula Nasal Cannula O2 Flow Rate 2.00 2.00 2.00 02/08/23 02/08/23 02/08/23 02/08/23 04:00 05:00 06:00 07:00 Pulse 99 101 101 89 Resp 21 18 18 B/P (MAP) 179/97 (124) 182/98 (126) 190/101 (130) Pulse Ox 92 90 92 O2 Delivery Nasal Cannula Nasal Cannula Nasal Cannula O2 Flow Rate 2.00 2.00 2.00 02/08/23 02/08/23 02/08/23 02/08/23 07:00 08:00 08:00 08:00 Temp 36.2 Pulse 89 92 Resp 18 23 B/P (MAP) 173/94 (131) 188/101 (136) Pulse Ox 91 92 97 O2 Delivery Nasal Cannula Nasal Cannula Nasal Cannula O2 Flow Rate 2.00 2.00 2.00 02/08/23 02/08/23 02/08/23 09:00 10:00 10:15 Pulse 93 96 Resp 21 14 B/P (MAP) 173/93 (123) 186/97 (129) Pulse Ox 91 91 92 O2 Delivery Nasal Cannula Nasal Cannula Nasal Cannula O2 Flow Rate 2.00 2.00 2.00 02/08/23 00:00 Intake Total 1150 ml Output Total 750 ml Balance 400 ml Capillary Refill : Less Than 3 Seconds Constitutional: AAO x 3, well-developed, well-nourished HEENT: PERRL, hearing is well preserved, oral hygience is good Neck: No carotid bruit; carotid pulses are 2 + bilaterally Respiratory: No accessory muscle use, No respiratory distress; chest expansion is symmetric, rhonchi (scattered; prolonge exp phase) Cardiovascular: regular rate-rhythm; No JVD; S1 and S2 Gastrointestinal: No tender; soft; No guarding; audible bowel sounds Extremities: no lower extremity edema bilateral Neurologic/Psychiatric: other (moves all extremities) Skin: No rash on exposed areas, No ulcerations on exposed areas Data Review Labs Laboratory Tests 02/07/23 18:20: Influenza Type A (RT-PCR) Not Detected, Influenza Type B (RT-PCR) Not Detected, SARS-CoV-2 RNA (RT-PCR) Not Detected 02/07/23 18:43: White Blood Count 6.7, Red Blood Count 4.31, Hemoglobin 12.9L, Hematocrit 38L, Mean Corpuscular Volume 89, Mean Corpuscular Hemoglobin 30, Mean Corpuscular Hemoglobin Concent 34, Red Cell Distribution Width 13.4, Platelet Count 208, Mean Platelet Volume 9.7, Immature Granulocyte % (Auto) 0, Neutrophils (%) (Auto) 70, Lymphocytes (%) (Auto) 19, Monocytes (%) (Auto) 8, Eosinophils (%) (Auto) 2, Basophils (%) (Auto) 1, Neutrophils # (Auto) 4.7, Lymphocytes # (Auto) 1.3, Monocytes # (Auto) 0.6, Eosinophils # (Auto) 0.1, Basophils # (Auto) 0.0, Immature Granulocyte # (Auto) 0.0, Prothrombin Time 14.5, INR Comment 1.1, Activated Partial Thromboplast Time 31, D-Dimer 1.42H, Sodium Level 140, Potassium Level 3.0L, Chloride Level 104, Carbon Dioxide Level 24, Anion Gap 12, Blood Urea Nitrogen 10, Creatinine 0.99, Estimat Glomerular Filtration Rate 78, BUN/Creatinine Ratio 10, Glucose Level 115H, Lactic Acid Level 1.29, Calcium Level 9.0, Corrected Calcium 9.2, Magnesium Level 1.4L, Total Bilirubin 0.8, Aspartate Amino Transf (AST/SGOT) 17, Alanine Aminotransferase (ALT/SGPT) 8, Alkaline Phosphatase 70, Total Creatine Kinase 56, Creatine Kinase MB 1.5, Myoglobin 37.1, Troponin I < 0.028, B-Type Natriuretic Peptide 419.9H, Total Protein 6.5, Albumin 3.8, Amylase Level 49, Lipase < 4L 02/07/23 19:10: Urine Color YELLOW, Urine Clarity CLEAR, Urine pH 7.0, Urine Specific [place] 1.020, Urine Protein NEGATIVE, Urine Glucose (UA) NEGATIVE, Urine Ketones NEGATIVE, Urine Nitrite NEGATIVE, Urine Bilirubin NEGATIVE, Urine Urobilinogen 1.0, Urine Leukocyte Esterase NEGATIVE, Urine RBC (Auto) NEGATIVE, Urine RBC NONE, Urine WBC NONE, Urine Squamous Epithelial Cells RARE, Urine Crystals NONE, Urine Bacteria TRACE, Urine Casts NONE, Urine Mucus NEGATIVE, Urine Culture Indicated CULTURE PENDING 02/08/23 04:12: White Blood Count 4.5, Red Blood Count 4.62, Hemoglobin 13.7, Hematocrit 41, Mean Corpuscular Volume 89, Mean Corpuscular Hemoglobin 30, Mean Corpuscular Hemoglobin Concent 33, Red Cell Distribution Width 13.6, Platelet Count 236, Mean Platelet Volume 9.7, Immature Granulocyte % (Auto) 0, Neutrophils (%) (Auto) 85H, Lymphocytes (%) (Auto) 13, Monocytes (%) (Auto) 2, Eosinophils (%) (Auto) 0, Basophils (%) (Auto) 0, Neutrophils # (Auto) 3.8, Lymphocytes # (Auto) 0.6L, Monocytes # (Auto) 0.1, Eosinophils # (Auto) 0.0, Basophils # (Auto) 0.0, Immature Granulocyte # (Auto) 0.0, Sodium Level 140, Potassium Level 3.5L, Chloride Level 105, Carbon Dioxide Level 22, Anion Gap 13, Blood Urea Nitrogen 13, Creatinine 1.14, Estimat Glomerular Filtration Rate 66, BUN/Creatinine Ratio 11, Glucose Level 189H, Calcium Level 9.5, Corrected Calcium 9.4, Magnesium Level 1.8, Total Bilirubin 0.7, Aspartate Amino Transf (AST/SGOT) 19, Alanine Aminotransferase (ALT/SGPT) 9, Alkaline Phosphatase 80, Total Protein 7.0, Albumin 4.1, Phosphorus Level 3.2 Radiology NAME: ТАТЬЯНА CROCKETT [facility] REC#: [id number] PT STATUS: REG ER : 1945 PHYSICIAN: SLOANE LOUIS DO ADMIT DATE: 02/07/23/ER Signed Date of Exam:02/07/23 CHEST 1 VIEW, AP/PA ONLY INDICATION: Chest pain. COMPARISON: Comparison is made with prior examination of 10/13/2022. FINDINGS: The heart size is normal. There is some venous congestion. Loop recorder overlies the left hilum. There is no pleural effusion or pneumothorax. Mediastinum is unremarkable. There is no evidence of lobar pneumonia. There has been a right shoulder replacement. IMPRESSION: Mild central pulmonary venous congestion. Dictated by: Dictated on workstation # [id number] Dict: 02/07/231851 Trans: 02/07/231902 [id number] Interpreted by: JERMAINE DOUGHERTY MD Electronically signed by: JERMAINE DOUGHERTY MD 02/07/231902 NAME: ТАТЬЯНА CROCKETT [facility] REC#: [id number] PT STATUS: ADM IN : 1945 PHYSICIAN: SLOANE LOUIS DO ADMIT DATE: 02/07/23/ICU Signed Date of Exam:02/07/23 CT ANGIO CHEST W (R/O PE) INDICATION: Chest pain, dyspnea, fever. COMPARISON: Radiographs from same date TECHNIQUE: Multiple contiguous axial CT images are obtained through the chest after administration of intravenous contrast dated 02/07/2023. Sagittal and coronal images are reviewed. This includes coronal MIP reformatted images. All CT scans use one or more of the following dose optimizing techniques: Automated exposure control, MA and/or KvP adjustment based on patient size and exam type or iterative reconstruction. FINDINGS: Calcified mediastinal and hilar lymph nodes are present. No significant adenopathy of the chest. No aneurysmal dilatation of thoracic aorta. The heart is within normal limits in size. No significant pericardial effusion. Small right and tiny left dependently layering pleural effusions. The trachea is patent. No pneumothorax. A few calcified granuloma are present within the lungs. The lungs are otherwise clear. Loop recorder is noted within the anterior left chest. No significant filling defect within the central or segmental pulmonary arteries. Subsegmental pulmonary arteries, particularly within the upper lobe not optimally visualized secondary to spray artifact from the superior vena cava. Tiny hiatal hernia. Cholecystectomy. The visualized upper abdomen is otherwise grossly unremarkable. Right total shoulder arthroplasty. Chronic left-sided rib fractures. Scattered osseous degenerative changes without acute osseous abnormality. IMPRESSION: No significant pulmonary embolism within the limits of the exam. Small right and tiny left dependently layering pleural effusions. Evidence of chronic granulomatous disease. Dictated by: Dictated on workstation # [id number] Dict: 02/07/231941 Trans: 02/07/232130 [id number] [id number] Interpreted by: UMU VALLES MD Electronically signed by: UMU VALLES MD 02/07/232130 ECG Impression ECG Initial ECG Rhythm: S.Tach A/P-Cardiology Assessment/Admission Diagnosis N/V/D with abdominal discomfort - management per medical services ?UTI - management per medical services CTA of the chest/abdomen/pelvis at [facility] on 12-31-22: AORTA [employer]: There is an intimal flap associated with the ductus region of the thoracic aorta. The branches of the proximal aorta are widely patent. No periaortic or mediastinal hematoma is documented. He has been referred to Dr. Garcia of [facility] CV services - advised he keep that appt Severe hypertension, labile - on a multi-drug regimen Chronic non-specific chest discomfort - Card cath on 09/25/[address] Nunez: Normal left heart pressures. No significant coronary artery disease although the distal left anterior descending coronary artery tapers rapidly in its distal third which could be a sign of coronary spasm and/or distal microvascular dysfunction. The right radial artery is small in caliber but did not have any focal atherosclerosis H/o mild - Echo of 09/25/[address] Nunez: mild conc LVH, LVEF 60-65%, grade 1 diastolic dysfunction, mild with mean grad 12 mmHg and valve area 1.5 sq cm, mild AI, PASP 22 + 5 mmHg - Echocardiogram of 10-14-22 showed LVEF 60-65%. Grade 1 diastolic dysfunction. Mild MR. Mild AoR. PASP 20-25 mmHg H/o hyperlipidemia H/o GERD JENAE - non-compliant with therapy Discussion and Recomendations N/V/D with abdominal discomfort - management per medical services ?UTI - management per medical services Uncontrolled HTN - resume home medications Chronic chest discomfort - unchanged from baseline per pt report - no evidence of ACS Monitor lab - replace potassium Replace electrolytes as indicated Records from hospitalization at [facility] in Dec 2022 reviewed Further recs will be based on his hospital course We would like to thank medical services for this consult Clinical Quality Measures AMI/AHF: ASA po Prior to arrival: Yes ([phone]) LISSET GRANADO Feb 08, 2023 07:56
[2023-02-08] MEDS ORDERED: POTASSIUM CHLORIDE 20 MEQ TABLET PO ONE (08:00)
[2023-02-08] MEDS ORDERED: amLODIPine 5 MG TABLET PO SCH (09:00)
[2023-02-08] MEDS: ASPIRIN 81 MG CHEWABLE TABLET PO SCH (09:04)
[2023-02-08] MEDS: DOCUSATE SODIUM 100 MG CAPSULE PO SCH ×2 (09:05→20:00)
[2023-02-08] MEDS: PANTOPRAZOLE 40 MG TABLET PO SCH (09:05)
[2023-02-08] MEDS: SENNOSIDES 8.6 MG TABLET PO SCH ×2 (09:05→20:00)
[2023-02-08] MEDS: FUROSEMIDE INJECTION 40 MG/4 ML VIAL IVP SCH (09:06)
[2023-02-08] MEDS: dexAMETHasone INJ 4 MG/ML SDV IV SCH ×2 (09:06→20:00)
--- NOTE | 2023-02-08 09:23 | Diagnostic Imaging Report ---
INDICATION: Chest pain. Shortness of air. COMPARISON: 02/07/2023 FINDINGS: Single frontal view of the chest demonstrates normal heart size and pulmonary vascularity. The lungs are well aerated and clear. No large pleural effusion or pneumothorax is seen. Small effusion seen on CT chest from one day prior are inconspicuous on this exam. The visualized osseous structures show no acute abnormalities. IMPRESSION: 1. No acute cardiopulmonary process. Dictated by: Dictated on workstation # [id number]
[2023-02-08] MEDS: RT-Ipratropium/Albuterol NEB 3 ML VIAL INH SCH ×2 (10:15→21:23)
[2023-02-08] MEDS: HYDROcodone/ACETAMINOPHEN 5 MG/325 MG TABLET PO PRN ×3 (10:22→23:49)
[2023-02-08] MEDS ORDERED: HYDR12.56 PO (11:34)
[2023-02-08] MEDS ORDERED: ONDA-105 PO (11:34)
[2023-02-08] MEDS ORDERED: AMLO-251 PO (11:34)
[2023-02-08] MEDS ORDERED: MTP100TCR PO (11:34)
[2023-02-08] MEDS ORDERED: CLN.1T PO (11:34)
[2023-02-08] MEDS ORDERED: ACET-2267 PO (11:34)
[2023-02-08] MEDS ORDERED: TMSL.4C PO (11:34)
[2023-02-08] MEDS ORDERED: ACHD5005 PO (11:34)
[2023-02-08] MEDS ORDERED: HYDR-3924 PO (11:41)
--- NOTE | 2023-02-08 12:01 | History & Physical-Hospitalist ---
MAYO CARRANZA MD, RESIDENT 02/08/23 1201: History of Present Illness HPI/Chief Complaint CC: Chest pain Patient presents to the ED with chest pain that began 2 nights ago, has been coming and going but was worse on presentation. He states the chest pain is bilateral. He is also having abdominal pain. He denies any fevers during this time however was noted to have an fever by EMS. He is also noting shortness of breath which is new for him. At baseline, patient has a history of COPD, CAD, hypertension, CHF. He was noted to have elevated blood pressures with systolics over 200 and diastolics over 100 thus was admitted to the ICU for hypertensive urgency management. This morning, patient states he is feeling okay, denies any pain at this time. Otherwise has no symptoms, has been able to walk around a little bit. Source: patient Exam Limitations: no limitations Date Seen 02/08/23 Time Seen by a Provider: 07:30 [facility] Physician [facility] Admitting Physician: Bianca Nunn DO Attending Physician: Bianca Nunn DO Referring Physician Date of Admission Feb 07, 2023 at 20:53 Home Medications & Allergies Home Medications Reviewed patient Home Medication Reconciliation performed by pharmacy medication reconciliations medical delivery technician and/or nursing. Patients Allergies have been reviewed. Allergies Allergies Coded Allergies morphine (Verified Allergy, Severe, HIVES, N/V,pt has rec. Lortab in the past w/o issue, 10/23/21) Past Xkeawxh-Cteibe-Lcprmb Hx Patient Social History Tobacco Use?: No Tobacco type used: Cigarettes Smoking Status: Former Smoker Substance use?: No Alcohol Use?: No Pt feels they are or have been: No Immunizations Up To Date Date of Influenza Vaccine: Jan 12, 2019 First/Initial COVID19 Vaccinat: denies Second COVID19 Vaccination You: denies Tetanus Booster (TDap): Unknown Hepatitis A: No Hepatitis B: No PED Vaccines UTD: No Date of Pneumonia Vaccine: Nov 25, 2016 Seasonal Allergies Seasonal Allergies: Yes Current Status Communicates: Verbally Primary Language: Ug[place]an Preferred Spoken Language: [place]an Is interpretation needed?: No Past Medical History Surgeries: Abdominal, Cardiac, Eye Surgery, Gallbladder, Joint Replacement, Orthopedic, Transurethral Resection Asthma, Pulmonary Embolism, Sleep Apnea, COPD, Emphysema Currently Using CPAP: Yes Currently Using BIPAP: No Coronary Artery Disease, High Cholesterol, Hypertension, Valvular Heart Disease Traumatic Brain Injury Sexually Transmitted Disease: No HIV/AIDS: No Benign Prostatic Hyperpl Gastroesophageal Reflux, Gastrointestinal Bleed, Chronic Constipation, Polyps, Hiatal Hernia Degenerate Disk Disease, Arthritis, Back Injury, Chronic Back Pain, Gout Diabetes, Non-Insulin dep Loss of Vision: Bilateral Hearing Impairment: Denies Prostate Did You Recieve Any Treatments: Yes What Type of Treatment Did You: Radiation, Surgical Intervention Anxiety, Depression Blood Disorders: No Adverse Reaction/Blood Tranf: No PMHx: COPD Asthma Mitral valve prolapse Hiatal hernia Ulcers Chronic kidney disease Fatty liver HTN HLD SurgHx: Bilateral hip replacements Bilateral knee replacements Back surgery x 3 Bowel surgery- possibly abscess initially, then scar tissue removal Family Medical History Cardiovascular disease 19 MOTHER Myocardial infarction 19 MOTHER, Onset:62 G8 SISTER Heart Disease SOCIAL HISTORY: -SMOKING--QUIT 25 YEARS AGO -ETOH-DENIES USE -DRUGS-DENIES USE CARDIAC CATH 09/[address] AVILA: IMPRESSION: 1. Normal left heart pressures. 2. No significant coronary artery disease although the distal left anterior descending coronary artery tapers rapidly in its distal third which could be a sign of coronary spasm and/or distal microvascular dysfunction. 3. The right radial artery is small in caliber but did not have any focal atherosclerosis. 4. The patient is known to have normal left ventricular systolic function with an estimated ejection fraction of 60-65% by echocardiogram obtained earlier today. 5. In light of the possible coronary spasm and/or microvascular dysfunction of the left anterior descending coronary artery, I will start him on long-acting nitrates. EGD 01/[address] SHEN: FINDINGS: Reflux esophagitis, [place] grade B, small recurrent hiatal hernia 2 cm in size, the area of inflammation and bleeding that he had had along a fold from his previous antireflux procedure is now gone, moderate gastritis with a small prepyloric ulcer. Review of Systems Constitutional: No chills, No fever, No weakness EENTM: No no symptoms reported Respiratory: No cough; short of breath Cardiovascular: chest pain; No edema, No palpitations Gastrointestinal: abdominal pain; No constipation, No diarrhea, No nausea, No vomiting Genitourinary: No dysuria Skin: No no symptoms reported Psychiatric/Neurological: Denies No Symptoms Reported Physical Exam Physical Exam Vital Signs Vital Signs - First Documented 02/07/23 02/07/23 18:11 20:00 Temp 37.4 Pulse 105 Resp 26 B/P (MAP) 251/129 (169) Pulse Ox 98 O2 Delivery Room Air O2 Flow Rate 2.00 Capillary Refill : Less Than 3 Seconds Height, Weight, BMI Height: 5'9.00" Weight: 172lbs. 5.0oz. 78.594018si; 27.13 BMI Method:Stated General Appearance: No Apparent Distress HEENT: PERRL/EOMI Neck: Full Range of Motion, Non Tender, Supple Respiratory: Chest Non Tender, Lungs Clear, Normal Breath Sounds, No Accessory Muscle Use, No Respiratory Distress Cardiovascular: Regular Rate, Rhythm, No Murmur, Normal Peripheral Pulses Gastrointestinal: Normal Bowel Sounds, Non Tender, Soft Neurologic/Psychiatric: Alert, Oriented x3 Skin: Normal Color, Warm/Dry Results Results/Procedures Labs Laboratory Tests 02/07/23 18:43 02/08/23 04:12 Patient resulted labs reviewed. Imaging: Reviewed Imaging Films, Reviewed Imaging Report Imaging Chest x-ray (02/07/2023): IMPRESSION: Mild central pulmonary venous congestion. CTA chest (02/07/2023): IMPRESSION: No significant pulmonary embolism within the limits of the exam. Small right and tiny left dependently layering pleural effusions. Evidence of chronic granulomatous disease. Assessment/Plan Admission Diagnosis Hypertensive urgency Admission Status: Inpatient Order (span 2 midnights) Reason for Inpatient Admission: Hypertensive urgency Diagnosis/Problems Diagnosis/Problems (1) Hypertensive urgency Status: Acute Assessment & Plan: Likely contributing to patient's chest pain. Plan: Continue amlodipine and IV labetalol as needed, avoid rapid correction Goal at this point is to have systolics of 150s to 160s Cardiology consulted appreciate recommendations (2) Chest pain Status: Acute Assessment & Plan: Troponins were negative. D-dimer was elevated however CTA chest was negative. Elevated BNP. Likely secondary to hypertensive urgency. Plan: Manage per above (3) Fever Status: Acute Assessment & Plan: Noted fever via EMS which technically meets SIRS criteria in addition to tachycardia. Patient does not have any identifiable source of infection however is on IV cefepime. We will continue for now. May be able to discontinue tomorrow if patient continues to remain stable. (4) Chronic pain Status: Chronic Assessment & Plan: Patient on scheduled pain medications at home. May be contributing to elevated blood pressure. We will restart. (5) COPD (chronic obstructive pulmonary disease) Status: Chronic Assessment & Plan: May be contributing to chest pain. We will restart home medications. Currently on oxygen however patient does not have a home oxygen requirement. May have sleep apnea and would benefit from a CPAP. We will do oxygen evaluation prior to discharge once stabilized (6) Hypokalemia Status: Acute Assessment & Plan: Potassium of 3.5 this a.m., repleted this morning. Clinical Quality Measures AMI/AHF: ASA po Prior to arrival: Yes ([phone]) BIANCA NUNN DO 02/08/232054: History of Present Illness HPI/Chief Complaint Chief complaint: Hypertensive urgency HPI: This is a 77-year-old male with a history of COPD oxygen dependent and severe labile hypertension who presented with nonspecific chest pain with hypertensive urgency. Patient was placed in the ICU. Source: patient, family Exam Limitations: no limitations Past Tgcwujg-Pxnxpf-Iplxai Hx Patient Social History Marrital Status: single Employed/Student: retired Smoking Status: Former Smoker Past Medical History Sleep Apnea, COPD Coronary Artery Disease, High Cholesterol, Hypertension Family Medical History Cardiovascular disease 19 MOTHER Myocardial infarction 19 MOTHER, Onset:62 G8 SISTER Review of Systems Constitutional: see HPI Physical Exam Physical Exam General Appearance: No Apparent Distress Respiratory: Lungs Clear Cardiovascular: Regular Rate, Rhythm Neurologic/Psychiatric: Alert, Oriented x3, Depressed Affect Assessment/Plan Admission Diagnosis Hypertension urgency Close monitoring ICU Admission Status: Inpatient Order (span 2 midnights) Reason for Inpatient Admission: Hypertensive urgency MAYO CARRANZA MD, RESIDENT Feb 08, 2023 12:01 BIANCA NUNN DO Feb 08, 2023 20:55
[2023-02-08] MEDS: hydrALAZINE 25 MG TABLET PO SCH ×2 (14:01→22:52)
--- NOTE | 2023-02-08 15:39 | Consultation-Cardiology ---
HPI-Cardiology Cardiology Consultation: Date of Consultation 02/08/23 Time Seen by a Provider: 09:45 Date of Admission Attending Physician Dr Nunn Admitting Physician Admitting Physician: Bianca Nunn DO Attending Physician: Bianca Nunn DO Physician requesting consult: Dr Nunn Consulting Physician ANDERSON BARRETT MD, MA, FACP, FACC, FSCAI, CCDS HPI: Chief Complaint: Reason for Card consult: Shortness of breath, chest discomfort Mr. Perry is a 77 yr old male admitted to ICU 7 from the ED with gen weakness, fever, chills, dyspnea, dysuria, diarrhea, abdominal discomfort and nausea. He reports symptoms started about 3-4 days ago and have progressively been getting worse. He reports he has chronic dyspnea, but feels it has been somewhat worse the last couple days. He reports chronic chest discomfort which has not changed. He reports his blood pressure has been high the last several days at home. He reports he has been taking his home medications. No LE swelling Review of Systems-Cardiology Review of Systems Constitutional: No chills, No fever, No malaise Eyes: No vision change Ears/Nose/Throat: No epistaxis, No recent hearing loss Respiratory: As described under HPI Cardiovascular: As described under HPI Gastrointestinal: As described under HPI Genitourinary: As described under HPI; No hematuria Musculoskeletal: As describe under HPI Skin: No rash on exposed areas, No ulcerations on exposed areas Psychiatric/Neurological: No seizure, No focal weakness, No syncope Hematologic: No bleeding abnormalities CUE-Piesmq-Hbxeeb Hx Patient Social History Smoking Status: Former Smoker Former smoker/When Quit: Apr 28, 1993 2nd Hand Smoke Exposure: No Alcohol Use?: No Pt feels they are or have been: No Tobacco type used: Cigarettes Immunizations Up To Date Tetanus Booster (TDap): Unknown Date of Pneumonia Vaccine: Nov 25, 2016 Date of Influenza Vaccine: Jan 12, 2019 Past Medical History PMH As described under Assessment. Family Medical History Family Medical History: He reports his mother had CAD and an MD. Family History: Cardiovascular disease 19 MOTHER Myocardial infarction 19 MOTHER, Onset:62 G8 SISTER Allergies and Home Medications Allergies Coded Allergies: morphine (Verified Allergy, Severe, HIVES, N/V,pt has rec. Lortab in the past w/o issue, 10/23/21) Patient Home Medication List Home Medication List Reviewed: Yes Acetaminophen (Tylenol Extra Strength) 500 Mg Tablet, 1,000 MG PO Q8H PRN for PAIN-MILD (1-4), (Reported) Entered as Reported by: HELIO OSBORN on 02/08/23 113 Last Action: Reviewed Albuterol Sulfate (Ventolin Hfa) 18 Gm Hfa.aer.ad, 2 PUFF INH Q6H PRN for SHORTNESS OF BREATH, (Reported) Entered as Reported by: ANGELY WHITESIDE on 11/26/18 1024 Last Action: Reviewed Allopurinol (Allopurinol) 300 Mg Tablet, 150 MG PO DAILY, (Reported) Entered as Reported by: ANA M GOLDSTEIN on 12/11/17 1119 Last Action: Reviewed Amitriptyline HCl (Amitriptyline HCl) 100 Mg Tablet, 100 MG PO HS, (Reported) Entered as Reported by: ANA M GOLDSTEIN on 10/22/18 1027 Last Action: Reviewed Amlodipine Besylate (Amlodipine Besylate) 10 Mg Tablet, 10 MG PO DAILY PRN for BLOOD PRESSURE, (Reported) Entered as Reported by: HELIO OSBORN on 02/08/231133 Last Action: Edited Aspirin (Aspirin EC) 81 Mg Tablet.dr, 81 MG PO HS, (Reported) Entered as Reported by: TRACY PEGUERO on 09/25/21 1408 Last Action: Reviewed Atorvastatin Calcium (Atorvastatin Calcium) 40 Mg Tablet, 40 MG PO HS, (Reported) Entered as Reported by: MURRAY CULVER on 10/14/22 0924 Last Action: Reviewed Buspirone HCl (Buspirone HCl) 15 Mg Tablet, 15 MG PO DAILY, (Reported) Entered as Reported by: BALBIR YUAN on 11/19/19 1908 Last Action: Reviewed Cetirizine HCl (Cetirizine HCl) 10 Mg Tablet, 10 MG PO DAILY, (Reported) Entered as Reported by: SHIRA VAZ on 04/25/15 0821 Last Action: Reviewed Clonidine HCl (Clonidine HCl) 0.1 Mg Tablet, 0.1 MG PO Q6H PRN for SYSTOLIC BLOOD PRESSURE, (Reported) Entered as Reported by: HELIO OSBORN on 02/08/23 113 Last Action: Edited Duloxetine HCl (Duloxetine HCl) 60 Mg Capsule.dr, 60 MG PO DAILY, (Reported) Entered as Reported by: HELIO OSBORN on 02/23/20 1148 Last Action: Reviewed Ferrous Sulfate (Ferosul) 325 Mg (65 Mg Iron) Tablet, 325 MG PO DAILY, (Reported) Entered as Reported by: MURRAY CULVER on 10/14/22 0924 Last Action: Reviewed Fluticasone/Umeclidin/Vilanter (Trelegy Ellipta 100-62.5-25) 100-62.5 Blst.w.dev, 1 PUFF INH 1200, (Reported) Entered as Reported by: WAI FOSTER on 01/18/19 1033 Last Action: Reviewed Gabapentin (Gabapentin) 100 Mg Capsule, 100 MG PO DAILY, (Reported) Entered as Reported by: HELIO OSBORN on 02/23/20 114 Last Action: Reviewed Hydralazine HCl (Hydralazine HCl) 50 Mg Tablet, 50 MG PO Q8H PRN for BLOOD PRESSURE, (Reported) Entered as Reported by: HELIO OSBORN on 02/08/23 1141 Last Action: Edited Hydrochlorothiazide (Hydrochlorothiazide) 12.5 Mg Tablet, 12.5 MG PO DAILY PRN for BLOOD PRESSURE, (Reported) Entered as Reported by: HELIO OSBORN on 02/08/23 113 Last Action: Edited Hydrocodone/Acetaminophen (Hydrocodone-Acetamin 5-325 mg) 5 Mg-325 Mg Tablet, 1 EA PO Q6H, (Reported) Entered as Reported by: HELIO OSBORN on 02/08/23 113 Last Action: Reviewed Metoprolol Succinate (Metoprolol Succinate) 100 Mg Tab.er.24h, 100 MG PO DAILY PRN for BLOOD PRESSURE, (Reported) Entered as Reported by: HELIO OSBORN on 02/08/23 113 Last Action: Edited Montelukast Sodium (Montelukast Sodium) 10 Mg Tablet, 10 MG PO HS, (Reported) Entered as Reported by: ANA M GOLDSTEIN on 12/11/17 1329 Last Action: Reviewed Ondansetron HCl (Ondansetron HCl) 4 Mg Tablet, 4 MG PO TID PRN for NAUSEA/VOMITING-1ST LINE, (Reported) Entered as Reported by: HELIO OSBORN on 02/08/23 113 Last Action: Reviewed Pantoprazole Sodium (Pantoprazole Sodium) 40 Mg Tablet.dr, 40 MG PO HS, (Reported) Entered as Reported by: MURRAY CULVER on 10/14/22923 Last Action: Reviewed Sucralfate (Sucralfate) 1 Gram Tablet, 1 GM PO ACHS, (Reported) Entered as Reported by: MURRAY CULVER on 10/14/22923 Last Action: Reviewed Tamsulosin HCl (Flomax) 0.4 Mg Cap, 0.4 MG PO DAILY, (Reported) Entered as Reported by: HELIO OSBORN on 02/08/23 1134 Last Action: Reviewed Tizanidine HCl (Tizanidine HCl) 6 Mg Capsule, 6 MG PO TID PRN for MUSCLE SPASMS, (Reported) Entered as Reported by: TRACY PEGUERO on 09/25/21 1409 Last Action: Reviewed Discontinued Medications Amlodipine Besylate (Amlodipine Besylate) 10 Mg Tablet, 10 MG PO DAILY Discontinued Reason: Duplicate Order Prescribed by: LISSET GRANADO on 10/16/22 1203 Last Action: Discontinued Clonidine HCl (Clonidine HCl) 0.1 Mg Tablet, 0.1 MG PO Q6H PRN for SBP>170 Discontinued Reason: Duplicate Order Prescribed by: BIANCA NUNN on 10/16/22 1644 Last Action: Discontinued Cyclobenzaprine HCl (Cyclobenzaprine HCl) 10 Mg Tablet, 10 MG PO TID Discontinued Reason: No Longer Taking Prescribed by: Emily Ramirez on 10/17/22 1922 Last Action: Discontinued Hydralazine HCl (Hydralazine HCl) 50 Mg Tablet, 50 MG PO Q8H Discontinued Reason: No Longer Taking Prescribed by: LISSET GRANADO on 10/16/22 1210 Last Action: Discontinued Hydrochlorothiazide (Hydrochlorothiazide) 12.5 Mg Tablet, 12.5 MG PO DAILY Discontinued Reason: No Longer Taking Prescribed by: LISSET GRANADO on 10/16/22 1227 Last Action: Discontinued Hydrocodone/Acetaminophen (Hydrocodone-Acetamin 5-325 mg) 5 Mg-325 Mg Tablet, 1 EA PO Q6H PRN for PAIN-MODERATE (5-7) Discontinued Reason: Duplicate Order Prescribed by: BIANCA NUNN on 10/16/22 1645 Last Action: Discontinued Lidocaine (Lidocaine) 4 % Adh..patch, 1 EACH TP DAILY Discontinued Reason: No Longer Taking Prescribed by: Emily Ramirez on 10/17/221921 Last Action: Discontinued Methylprednisolone (Methylprednisolone Dose Pack) 4 Mg Tab.ds.pk, 4 MG PO UD Discontinued Reason: No Longer Taking Prescribed by: Emily Ramirez on 10/17/221921 Last Action: Discontinued Metoprolol Succinate (Metoprolol Succinate) 100 Mg Tab.er.24h, 100 MG PO DAILY Discontinued Reason: No Longer Taking Prescribed by: LISSET GRANADO on 10/16/22 1203 Last Action: Discontinued Physical Exam-Cardiology Physical Exam Vital Signs/I&O 02/08/23 02/08/23 02/08/23 02/08/23 04:00 04:00 04:00 05:00 Temp 36.0 Pulse 99 101 Resp 21 18 B/P (MAP) 179/97 (124) 182/98 (126) Pulse Ox 97 92 90 O2 Delivery Nasal Cannula Nasal Cannula Nasal Cannula O2 Flow Rate 2.00 2.00 2.00 02/08/23 02/08/23 02/08/23 02/08/23 06:00 07:00 07:00 08:00 Pulse 101 89 89 92 Resp 18 18 23 B/P (MAP) 190/101 (130) 173/94 (131) 188/101 (136) Pulse Ox 92 91 92 O2 Delivery Nasal Cannula Nasal Cannula Nasal Cannula O2 Flow Rate 2.00 2.00 2.00 02/08/23 02/08/23 02/08/23 02/08/23 08:00 08:00 09:00 10:00 Temp 36.2 Pulse 93 96 Resp 21 14 B/P (MAP) 173/93 (123) 186/97 (129) Pulse Ox 97 91 91 O2 Delivery Nasal Cannula Nasal Cannula Nasal Cannula O2 Flow Rate 2.00 2.00 2.00 02/08/23 02/08/23 02/08/23 02/08/23 10:15 11:00 11:18 12:00 Temp 36.5 Pulse 92 Resp 14 B/P (MAP) 179/94 (128) Pulse Ox 92 90 97 O2 Delivery Nasal Cannula Nasal Cannula Nasal Cannula O2 Flow Rate 2.00 2.00 2.00 02/08/23 02/08/23 02/08/23 02/08/23 12:00 12:45 13:00 14:00 Pulse 95 95 92 97 Resp 21 23 15 B/P (MAP) 178/93 (105) 182/88 (129) 177/89 (137) Pulse Ox 94 93 97 O2 Delivery Nasal Cannula Nasal Cannula Nasal Cannula O2 Flow Rate 2.00 2.00 2.00 02/08/23 02/08/23 02/08/23 14:05 14:43 15:00 Pulse 93 Resp 21 B/P (MAP) 169/91 (127) Pulse Ox 95 96 O2 Delivery Nasal Cannula Nasal Cannula Nasal Cannula O2 Flow Rate 3.00 5.00 5.00 02/08/23 00:00 Intake Total 1150 ml Output Total 750 ml Balance 400 ml Capillary Refill : Less Than 3 Seconds Constitutional: AAO x 3, well-developed, well-nourished HEENT: PERRL, hearing is well preserved, oral hygience is good Neck: No carotid bruit; carotid pulses are 2 + bilaterally Respiratory: No accessory muscle use, No respiratory distress; chest expansion is symmetric, rhonchi (scattered; prolonge exp phase) Cardiovascular: regular rate-rhythm; No JVD; S1 and S2 Gastrointestinal: No tender; soft; No guarding; audible bowel sounds Extremities: no lower extremity edema bilateral Neurologic/Psychiatric: other (moves all extremities) Skin: No rash on exposed areas, No ulcerations on exposed areas Data Review Labs Laboratory Tests 02/07/23 18:20: Influenza Type A (RT-PCR) Not Detected, Influenza Type B (RT-PCR) Not Detected, SARS-CoV-2 RNA (RT-PCR) Not Detected 02/07/23 18:43: White Blood Count 6.7, Red Blood Count 4.31, Hemoglobin 12.9L, Hematocrit 38L, Mean Corpuscular Volume 89, Mean Corpuscular Hemoglobin 30, Mean Corpuscular Hemoglobin Concent 34, Red Cell Distribution Width 13.4, Platelet Count 208, Mean Platelet Volume 9.7, Immature Granulocyte % (Auto) 0, Neutrophils (%) (Auto) 70, Lymphocytes (%) (Auto) 19, Monocytes (%) (Auto) 8, Eosinophils (%) (Auto) 2, Basophils (%) (Auto) 1, Neutrophils # (Auto) 4.7, Lymphocytes # (Auto) 1.3, Monocytes # (Auto) 0.6, Eosinophils # (Auto) 0.1, Basophils # (Auto) 0.0, Immature Granulocyte # (Auto) 0.0, Prothrombin Time 14.5, INR Comment 1.1, Activated Partial Thromboplast Time 31, D-Dimer 1.42H, Sodium Level 140, Potassium Level 3.0L, Chloride Level 104, Carbon Dioxide Level 24, Anion Gap 12, Blood Urea Nitrogen 10, Creatinine 0.99, Estimat Glomerular Filtration Rate 78, BUN/Creatinine Ratio 10, Glucose Level 115H, Lactic Acid Level 1.29, Calcium Level 9.0, Corrected Calcium 9.2, Magnesium Level 1.4L, Total Bilirubin 0.8, Aspartate Amino Transf (AST/SGOT) 17, Alanine Aminotransferase (ALT/SGPT) 8, Alkaline Phosphatase 70, Total Creatine Kinase 56, Creatine Kinase MB 1.5, Myoglobin 37.1, Troponin I < 0.028, B-Type Natriuretic Peptide 419.9H, Total Protein 6.5, Albumin 3.8, Amylase Level 49, Lipase < 4L 02/07/23 19:10: Urine Color YELLOW, Urine Clarity CLEAR, Urine pH 7.0, Urine Specific [place] 1.020, Urine Protein NEGATIVE, Urine Glucose (UA) NEGATIVE, Urine Ketones NEGATIVE, Urine Nitrite NEGATIVE, Urine Bilirubin NEGATIVE, Urine Urobilinogen 1.0, Urine Leukocyte Esterase NEGATIVE, Urine RBC (Auto) NEGATIVE, Urine RBC NONE, Urine WBC NONE, Urine Squamous Epithelial Cells RARE, Urine Crystals NONE, Urine Bacteria TRACE, Urine Casts NONE, Urine Mucus NEGATIVE, Urine Culture Indicated CULTURE PENDING 02/08/23 04:12: White Blood Count 4.5, Red Blood Count 4.62, Hemoglobin 13.7, Hematocrit 41, Mean Corpuscular Volume 89, Mean Corpuscular Hemoglobin 30, Mean Corpuscular Hemoglobin Concent 33, Red Cell Distribution Width 13.6, Platelet Count 236, Mean Platelet Volume 9.7, Immature Granulocyte % (Auto) 0, Neutrophils (%) (Auto) 85H, Lymphocytes (%) (Auto) 13, Monocytes (%) (Auto) 2, Eosinophils (%) (Auto) 0, Basophils (%) (Auto) 0, Neutrophils # (Auto) 3.8, Lymphocytes # (Auto) 0.6L, Monocytes # (Auto) 0.1, Eosinophils # (Auto) 0.0, Basophils # (Auto) 0.0, Immature Granulocyte # (Auto) 0.0, Sodium Level 140, Potassium Level 3.5L, Chloride Level 105, Carbon Dioxide Level 22, Anion Gap 13, Blood Urea Nitrogen 13, Creatinine 1.14, Estimat Glomerular Filtration Rate 66, BUN/Creatinine Ratio 11, Glucose Level 189H, Calcium Level 9.5, Corrected Calcium 9.4, Magnesium Level 1.8, Total Bilirubin 0.7, Aspartate Amino Transf (AST/SGOT) 19, Alanine Aminotransferase (ALT/SGPT) 9, Alkaline Phosphatase 80, Total Protein 7.0, Albumin 4.1, Phosphorus Level 3.2 02/08/23 11:17: Glucometer 149H 02/08/23 15:28: Glucometer 200H Microbiology 02/07/23 Urine Culture - Final, Complete NO GROWTH A/P-Cardiology Assessment/Admission Diagnosis N/V/D with abdominal discomfort - management per medical services ?UTI - management per medical services CTA of the chest/abdomen/pelvis at [facility] on 12-31-22: [employer]: There is an intimal flap associated with the ductus region of the thoracic aorta. The branches of the proximal aorta are widely patent. No periaortic or mediastinal hematoma is documented. He has been referred to Dr. Garcia of [facility] CV services - advised he keep that appt Severe hypertension, labile - on a multi-drug regimen Chronic non-specific chest discomfort - Card cath on 09/25/[address] Nunez: Normal left heart pressures. No significant coronary artery disease although the distal left anterior descending coronary artery tapers rapidly in its distal third which could be a sign of coronary spasm and/or distal microvascular dysfunction. The right radial artery is small in caliber but did not have any focal atherosclerosis H/o mild - Echo of 09/25/[address] Nunez: mild conc LVH, LVEF 60-65%, grade 1 diastolic dysfunction, mild with mean grad 12 mmHg and valve area 1.5 sq cm, mild AI, PASP 22 + 5 mmHg - Echocardiogram of 10-14-22 showed LVEF 60-65%. Grade 1 diastolic dysfunction. Mild MR. Mild AoR. PASP 20-25 mmHg H/o hyperlipidemia H/o GERD JENAE - non-compliant with therapy Discussion and Recomendations N/V/D with abdominal discomfort - management per medical services ?UTI - management per medical services Uncontrolled HTN - resume home medications Chronic chest discomfort - unchanged from baseline per pt report - no evidence of ACS Monitor lab - replace potassium Replace electrolytes as indicated Records from hospitalization at [facility] in Dec 2022 reviewed Further recs will be based on his hospital course We would like to thank Medical services for this consult Clinical Quality Measures AMI/AHF: ASA po Prior to arrival: Yes ([phone]) ANDERSON BARRETT MD FACP FAC CCDS Feb 08, 2023 15:39
[2023-02-08] MEDS: hydrALAZINE INJECTION 20 MG/ML VIAL IV PRN (20:02)
[2023-02-08] MEDS: ENOXAPARIN 40 MG/0.4 ML SYRINGE SC SCH (21:32)
[2023-02-09] MEDS: CEFEPIME INJECTION 1,000 MG in NS (IVPB) 50 ML 50 ML IV SCH ×2 (01:16→06:05)
[2023-02-09] MEDS: LABETALOL 5 mg/ml 4 ML SINGLE DOSE SYRINGE IV PRN ×2 (01:16→05:57)
[2023-02-09] MEDS: hydrALAZINE INJECTION 20 MG/ML VIAL IV PRN (02:37)
[2023-02-09 04:36] LABS: BASOPHILS % (AUTO) 0 % (0-10); EOSINOPHILS % (AUTO) 0 % (0-10); HEMATOCRIT 40 % (40-54); HEMOGLOBIN 13.1 g/dL (13.3-17.7); LYMPHOCYTES % (AUTO) 6 % (12-44); MEAN CORPUSCULAR HEMOGLOBIN 30 pg (25-34); MEAN CORPUSCULAR HGB CONC 33 g/dL (32-36); MEAN CORPUSCULAR VOLUME 91 fL (80-99); MEAN PLATELET VOLUME 9.9 fL (9.0-12.2); MONOCYTES # (AUTO) 0.4 10^3/uL (0.0-1.0); MONOCYTES % (AUTO) 3 % (0-12); NEUTROPHILS # (AUTO) 13.8 10^3/uL (1.8-7.8); NEUTROPHILS % (AUTO) 90 % (42-75); PLATELET COUNT 246 10^3/uL (130-400); WHITE BLOOD COUNT 15.3 10^3/uL (4.3-11.0)
[2023-02-09 04:54] LABS: ALBUMIN 3.8 GM/DL (3.2-4.5)
[2023-02-09 04:55] LABS: CALCIUM 9.4 MG/DL (8.5-10.1)
[2023-02-09 04:57] LABS: TOTAL PROTEIN 6.5 GM/DL (6.4-8.2)
[2023-02-09 04:58] LABS: BILIRUBIN,TOTAL 0.5 MG/DL (0.1-1.0)
[2023-02-09 05:00] LABS: CREATININE SERUM 1.01 MG/DL (0.60-1.30); LYMPHOCYTES % (MANUAL) 10 %; MONOCYTES % (MANUAL) 4 %; NEUTROPHILS % (MANUAL) 85 %; PHOSPHORUS 4.1 MG/DL (2.3-4.7); REACTIVE LYMPHOCYTES 1 %
[2023-02-09] MEDS: POTASSIUM CL 10MEQ/50ML IVPB 50 ML IV SCH (05:24)
[2023-02-09] MEDS: POTASSIUM CHLORIDE 20 MEQ TABLET PO SCH (05:24)
[2023-02-09] MEDS: MAGNESIUM 1 GM/100 ML IVPB 100 ML IV SCH (05:24)
[2023-02-09] MEDS: hydrALAZINE 25 MG TABLET PO SCH ×3 (05:57→21:18)
[2023-02-09] MEDS: NITROGLYCERIN 2% OINT 1 GM UNIT DOSE PACKET TOP SCH ×4 (05:57→23:23)
[2023-02-09] MEDS: inSUlin ASPART 1 UNIT/0.01 ML (PER UNIT) SC SCH ×4 (05:58→20:33)
[2023-02-09] MEDS ORDERED: ACETAMINOPHEN 500 MG TABLET PO PRN (06:00)
[2023-02-09] MEDS ORDERED: amLODIPine 10 MG TABLET PO PRN (06:00)
[2023-02-09] MEDS ORDERED: ONDANSETRON 4 MG ORAL DISSOLVE TABLET PO PRN (06:30)
[2023-02-09] MEDS: SUCRALFATE 1 GM TABLET PO SCH ×4 (06:37→20:43)
[2023-02-09] MEDS: HYDROcodone/ACETAMINOPHEN 5 MG/325 MG TABLET PO SCH ×4 (06:37→23:23)
[2023-02-09] MEDS ORDERED: TIOTROPIUM INH 4 GM (SPIRIVA Respimat) IH SCH (08:00)
[2023-02-09] MEDS ORDERED: FLUTICASONE/VILANTEROL 100/25 MCG (7 DOSES) IH SCH (08:00)
[2023-02-09] MEDS: RT-Ipratropium/Albuterol NEB 3 ML VIAL INH SCH ×2 (08:27→21:53)
[2023-02-09] MEDS: FERROUS SULFATE 325 MG (IRON) TABLET PO SCH (08:50)
[2023-02-09] MEDS: busPIRone 15 MG TABLET PO SCH (08:50)
[2023-02-09] MEDS: PANTOPRAZOLE 40 MG TABLET PO SCH (08:50)
[2023-02-09] MEDS: TAMSULOSIN 0.4 MG (FLOMAX) CAP PO SCH (08:50)
[2023-02-09] MEDS: DULoxetine 30 MG CAPSULE PO SCH (08:50)
[2023-02-09] MEDS: LORATADINE 10 MG TABLET PO SCH (08:50)
[2023-02-09] MEDS: FUROSEMIDE INJECTION 40 MG/4 ML VIAL IVP SCH (08:50)
[2023-02-09] MEDS: dexAMETHasone INJ 4 MG/ML SDV IV SCH ×2 (08:50→21:35)
[2023-02-09] MEDS: DOCUSATE SODIUM 100 MG CAPSULE PO SCH ×2 (08:50→20:44)
[2023-02-09] MEDS: SENNOSIDES 8.6 MG TABLET PO SCH ×2 (08:50→20:44)
[2023-02-09] MEDS: ALLOPURINOL 300 MG TABLET PO SCH (08:51)
[2023-02-09] MEDS: ASPIRIN 81 MG CHEWABLE TABLET PO SCH (08:51)
[2023-02-09] MEDS: GABAPENTIN 100 MG CAPSULE PO SCH (08:51)
--- NOTE | 2023-02-09 09:41 | Progress Note ---
MAYO CARRANZA MD, RESIDENT 02/09/23 0941: Subjective HPI/CC On Admission Date Seen by Provider: Feb 09, 2023 Time Seen by Provider: 08:45 Chief complaint: Hypertensive urgency HPI: This is a 77-year-old male with a history of COPD oxygen dependent and severe labile hypertension who presented with nonspecific chest pain with hypertensive urgency. Patient was placed in the ICU. Subjective/Events-last exam Patient improved this morning. Has no concerns today. States he is eating well , having regular bowel movements and has been walking around okay. Was taken off of the oxygen overnight and has been tolerating this well, denying any shortness of breath. Review of Systems General: No Chills, No Fatigue HEENT: No Head Aches, No Sinus Congestion Pulmonary: No Dyspnea, No Cough, No Pleuritic Chest Pain Cardiovascular: No: Chest Pain, Palpitations, Edema Gastrointestinal: No: Nausea, Vomiting, Diarrhea, Constipation Genitourinary: No Dysuria Neurological: No: Weakness Focused Exam Lactate Level 02/07/23 18:43: Lactic Acid Level 1.29 Time of Focused Exam: 19:45 Objective Exam Vital Signs Vital Signs Date Time Temp Pulse Resp B/P (MAP) Pulse Ox O2 Delivery O2 Flow Rate FiO2 02/09/23 11:00 89 22 183/95 (129) 92 Room Air 02/09/23 07:58 36.6 02/09/23 05:00 2.00 Capillary Refill : Less Than 3 Seconds General Appearance: No Apparent Distress HEENT: Normal ENT Inspection Neck: Full Range of Motion, Normal Inspection, Non Tender, Supple Respiratory: Chest Non Tender, Lungs Clear, Normal Breath Sounds, No Accessory Muscle Use, No Respiratory Distress Cardiovascular: Regular Rate, Rhythm, No Edema, No Murmur Gastrointestinal: Normal Bowel Sounds, Non Tender, Soft Extremity: No Pedal Edema Neurologic/Psychiatric: Alert, Oriented x3 Skin: Normal Color, Warm/Dry Results/Procedures Lab Laboratory Tests 02/09/23 04:15 Patient resulted labs reviewed. Imaging: Reviewed Imaging Films, Reviewed Imaging Report Assessment/Plan Assessment and Plan Assess & Plan/Chief Complaint Uncontrolled hypertension Diagnosis/Problems Diagnosis/Problems (1) Hypertensive urgency Status: Acute Assessment & Plan: Chest pain has resolved as of this a.m. Plan: Is currently on hydralazine 50 mg every q8 hours, clonidine 0.1 mg daily, metoprolol 100 mg daily and doxazosin 1 mg twice daily. He also has amlodipine 10 mg daily as needed and lisinopril 40 mg daily as needed on board. Has still been requiring some doses of IV labetalol and hydralazine overnight. We will try to avoid IV medications and use oral as needed. Goal at this point is to have systolics of 150s to 160s Cardiology consulted appreciate recommendations (2) Chest pain Status: Resolved Assessment & Plan: Troponins were negative. D-dimer was elevated however CTA chest was negative. Elevated BNP. Likely secondary to hypertensive urgency. Plan: Manage per above Resolution Date/Time: 02/09/23 @ 09:43 (3) Fever Status: Resolved Assessment & Plan: Noted fever via EMS which technically meets SIRS criteria in addition to tachycardia. Patient does not have any identifiable source of infection however is on IV cefepime. No further fevers at this time. Resolution Date/Time: 02/09/23 @ 09:43 (4) Leukocytosis Status: Acute Assessment & Plan: White blood cell count increased from 4.5 to 15.3 this AM. Being treated with IV cefepime. There is no clear source of infection as UA showing no growth, blood culture is also showing no growth. CXR negative. Likely secondary to steroids. Plan: - Switch to augmentin - transfer to 4th floor (5) Chronic pain Status: Chronic Assessment & Plan: Patient on scheduled pain medications at home. May be contributing to elevated blood pressure. Continue home medications. (6) COPD (chronic obstructive pulmonary disease) Status: Chronic Assessment & Plan: May be contributing to chest pain. We will restart home medications. Currently on oxygen however patient does not have a home oxygen requirement. May have sleep apnea and would benefit from a CPAP. We will do oxygen evaluation prior to discharge once stabilized Clinical Quality Measures AMI/AHF: ASA po Prior to arrival: Yes ([phone]) CARLOS NUNN DO 02/10/23 0541: Subjective Subjective/Events-last exam Labile blood pressure continues We will move to fourth floor Objective Exam General Appearance: No Apparent Distress, WD/WN, Chronically ill Respiratory: Lungs Clear, Normal Breath Sounds Cardiovascular: Regular Rate, Rhythm Assessment/Plan Assessment and Plan Assess & Plan/Chief Complaint Continue management labile blood pressure I personally performed the ospina portions of the visit, discussed case with resident and concur with resident documentation of history, physical exam, assessment and treatment plan unless otherwise noted. MAYO CARRANZA MD, RESIDENT Feb 09, 2023 09:41 CARLOS NUNN DO Feb 10, 2023 05:41
--- NOTE | 2023-02-09 10:14 | Diagnostic Imaging Report ---
INDICATION: Respiratory distress FINDINGS: No focal consolidation, failure pattern, effusion or pneumothorax. IMPRESSION: No acute appearing abnormality at frontal chest x-ray. Dictated by: Dictated on workstation # [id number]
[2023-02-09] MEDS ORDERED: NON-FORMULARY MEDICATION 1 EA EA (Fluticasone/Umeclidin/Vilanter (Trelegy Ellipta 100-62.5 INH SCH (12:00)
--- NOTE | 2023-02-09 12:55 | Progress Note - Cardiology ---
Cardiology SOAP Progress Note Subjective: States feels better No cp or palp or syncope Does not report shortness of breath at rest No n/v/d No focal weakness Gen weakness present Objective: I&O/Vital Signs 02/09/23 02/09/23 02/09/23 02/09/23 01:00 01:00 02:00 03:00 Pulse 100 100 96 97 Resp 23 18 20 B/P (MAP) 185/94 (124) 186/91 (122) 169/91 (117) Pulse Ox 95 95 95 O2 Delivery Nasal Cannula Nasal Cannula Nasal Cannula O2 Flow Rate 2.00 2.00 2.00 02/09/23 02/09/23 02/09/23 02/09/23 04:00 04:00 05:00 05:21 Pulse 93 100 Resp 19 20 B/P (MAP) 184/93 (123) 199/102 (134) Pulse Ox 96 97 98 O2 Delivery Nasal Cannula Nasal Cannula Nasal Cannula Room Air O2 Flow Rate 2.00 2.00 2.00 02/09/23 02/09/23 02/09/23 02/09/23 06:00 07:00 07:00 07:58 Temp 36.6 Pulse 92 92 92 Resp 17 30 B/P (MAP) 183/96 (125) 161/92 (118) Pulse Ox 95 95 O2 Delivery Room Air Room Air 02/09/23 02/09/23 02/09/23 02/09/23 08:00 08:00 09:00 10:00 Pulse 90 90 81 Resp 19 11 27 B/P (MAP) 156/77 (106) 175/84 (114) 178/94 (122) Pulse Ox 96 98 90 94 O2 Delivery Room Air Room Air Room Air Room Air 02/09/23 02/09/23 02/09/23 02/09/23 11:00 12:00 12:00 12:00 Temp 37.0 Pulse 89 92 Resp 22 31 B/P (MAP) 183/95 (129) 170/79 (118) Pulse Ox 92 98 97 O2 Delivery Room Air Room Air Room Air 02/09/23 00:00 Intake Total 1290 ml Output Total 600 ml Balance 690 ml Weight (Pounds): 172 Weight (Ounces): 5.0 Weight (Calculated Kilograms): [id number] Constitutional: AAO x 3, well-developed, well-nourished Respiratory: No accessory muscle use, No respiratory distress; chest expansion is symmetric, rhonchi (scattered; prolonge exp phase) Cardiovascular: regular rate-rhythm; No JVD; S1 and S2 Gastrointestional: No tender; soft; No guarding; audible bowel sounds Extremities: no lower extremity edema bilateral Neurologic/Psychiatric: other (moves all extremities) Skin: No rash on exposed areas, No ulcerations on exposed areas Results/Procedures: Labs Laboratory Tests 02/08/23 15:28: Glucometer 200H 02/08/23 20:32: Glucometer 152H 02/09/23 04:15: White Blood Count 15.3H, Red Blood Count 4.38, Hemoglobin 13.1L, Hematocrit 40, Mean Corpuscular Volume 91, Mean Corpuscular Hemoglobin 30, Mean Corpuscular Hemoglobin Concent 33, Red Cell Distribution Width 13.9, Platelet Count 246, Carina n Platelet Volume 9.9, Immature Granulocyte % (Auto) 1, Neutrophils (%) (Auto) 90H, Lymphocytes (%) (Auto) 6L, Monocytes (%) (Auto) 3, Eosinophils (%) (Auto) 0, Basophils (%) (Auto) 0, Neutrophils # (Auto) 13.8H, Lymphocytes # (Auto) 1.0, Monocytes # (Auto) 0.4, Eosinophils # (Auto) 0.0, Basophils # (Auto) 0.0, Immature Granulocyte # (Auto) 0.1, Neutrophils % (Manual) 85, Lymphocytes % (Manual) 10, Monocytes % (Manual) 4, Reactive Lymphocytes 1, Sodium Level 138, Potassium Level 4.0, Chloride Level 105, Carbon Dioxide Level 22, Anion Gap 11, Blood Urea Nitrogen 20H, Creatinine 1.01, Estimat Glomerular Filtration Rate 77, BUN/Creatinine Ratio 20, Glucose Level 172H, Calcium Level 9.4, Corrected Calcium 9.6, Phosphorus Level 4.1, Magnesium Level 2.0, Total Bilirubin 0.5, Aspartate Amino Transf (AST/SGOT) 16, Alanine Aminotransferase (ALT/SGPT) 8, Alkaline Phosphatase 68, Total Protein 6.5, Albumin 3.8 02/09/23 10:23: Glucometer 146H Microbiology 02/07/23 MRSA Screen - Final, Complete 02/07/23 Urine Culture - Final, Complete NO GROWTH 02/07/23 Blood Culture - Preliminary, Resulted Laboratory Tests 02/07/23 18:43 02/08/23 04:12 02/09/23 04:15 A/P: Assessment: N/V/D with abdominal discomfort - management per medical services ?UTI - management per medical services CTA of the chest/abdomen/pelvis at [facility] on 12-31-22: [employer]: There is an intimal flap associated with the ductus region of the thoracic aorta. The branches of the proximal aorta are widely patent. No periaortic or mediastinal hematoma is documented. He has been referred to Dr. Garcia of [facility] CV services - advised he keep that appt Severe hypertension, labile - hypertension has improved since resumption of home regimen Chronic non-specific chest discomfort - Card cath on 09/25/[address] Nunez: Normal left heart pressures. No significant coronary artery disease although the distal left anterior descending coronary artery tapers rapidly in its distal third which could be a sign of coronary spasm and/or distal microvascular dysfunction. The right radial artery is small in caliber but did not have any focal atherosclerosis H/o mild - Echo of 09/25/[address] Nunez: mild conc LVH, LVEF 60-65%, grade 1 diastolic dysfunction, mild with mean grad 12 mmHg and valve area 1.5 sq cm, mild AI, PASP 22 + 5 mmHg - Echocardiogram of 10-14-22 showed LVEF 60-65%. Grade 1 diastolic dysfunction. Mild MR. Mild AoR. PASP 20-25 mmHg H/o hyperlipidemia H/o GERD JENAE - non-compliant with therapy Plan: * Continue the cardiac regimen he takes at home * Ok to transfer to floor * Monitor labs and replenish electrolytes as needed Clinical Quality Measures AMI/AHF: ASA po Prior to arrival: Yes ([phone]) ANDERSON BARRETT MD FACP [facility] CCDS Feb 09, 2023 12:55
[2023-02-09] MEDS: AMOXICILLIN/Clavulanate 875 MG TABLET PO SCH (17:58)
[2023-02-09] MEDS: ENOXAPARIN 40 MG/0.4 ML SYRINGE SC SCH (20:43)
[2023-02-09] MEDS ORDERED: PANTOPRAZOLE 40 MG TABLET PO SCH (21:00)
[2023-02-09] MEDS ORDERED: MONTELUKAST 10 MG TABLET PO SCH (21:00)
[2023-02-09] MEDS ORDERED: ASPIRIN enteric coated 81MG TABLET PO SCH (21:00)
[2023-02-09] MEDS ORDERED: AMITRIPTYLINE 25 MG TABLET PO SCH (21:00)
[2023-02-10 05:07] LABS: BASOPHILS % (AUTO) 0 % (0-10); EOSINOPHILS % (AUTO) 0 % (0-10); HEMATOCRIT 40 % (40-54); HEMOGLOBIN 12.9 g/dL (13.3-17.7); LYMPHOCYTES # (AUTO) 0.9 10^3/uL (1.0-4.0); LYMPHOCYTES % (AUTO) 8 % (12-44); MEAN CORPUSCULAR HEMOGLOBIN 30 pg (25-34); MEAN CORPUSCULAR HGB CONC 33 g/dL (32-36); MEAN CORPUSCULAR VOLUME 91 fL (80-99); MEAN PLATELET VOLUME 10.5 fL (9.0-12.2); MONOCYTES # (AUTO) 0.5 10^3/uL (0.0-1.0); MONOCYTES % (AUTO) 5 % (0-12); NEUTROPHILS # (AUTO) 8.8 10^3/uL (1.8-7.8); NEUTROPHILS % (AUTO) 86 % (42-75); PLATELET COUNT 221 10^3/uL (130-400); WHITE BLOOD COUNT 10.3 10^3/uL (4.3-11.0)
[2023-02-10] MEDS: inSUlin ASPART 1 UNIT/0.01 ML (PER UNIT) SC SCH ×2 (05:26→12:02)
[2023-02-10] MEDS: POTASSIUM CHLORIDE 20 MEQ TABLET PO SCH (05:26)
[2023-02-10] MEDS: MAGNESIUM 1 GM/100 ML IVPB 100 ML IV SCH (05:26)
[2023-02-10] MEDS: POTASSIUM CL 10MEQ/50ML IVPB 50 ML IV SCH (05:26)
[2023-02-10] MEDS: hydrALAZINE 25 MG TABLET PO SCH ×2 (05:54→12:46)
[2023-02-10] MEDS: SUCRALFATE 1 GM TABLET PO SCH ×2 (05:54→12:02)
[2023-02-10] MEDS: HYDROcodone/ACETAMINOPHEN 5 MG/325 MG TABLET PO SCH ×2 (05:55→12:02)
[2023-02-10] MEDS: NITROGLYCERIN 2% OINT 1 GM UNIT DOSE PACKET TOP SCH ×2 (05:55→12:01)
--- NOTE | 2023-02-10 05:56 | Progress Note - Hospitalist ---
Subjective HPI/CC On Admission Date Seen by Provider: Feb 10, 2023 Time Seen by Provider: 11:00 Chief complaint: Hypertensive urgency HPI: This is a 77-year-old male with a history of COPD oxygen dependent and severe labile hypertension who presented with nonspecific chest pain with hypertensive urgency. Patient was placed in the ICU. Focused Exam Lactate Level 02/07/23 18:43: Lactic Acid Level 1.29 Time of Focused Exam: 19:45 Objective Exam Vital Signs Vital Signs Date Time Temp Pulse Resp B/P (MAP) Pulse Ox O2 Delivery O2 Flow Rate FiO2 02/10/23 08:00 36.7 82 18 176/83 (114) 96 Room Air 02/09/23 05:00 2.00 Capillary Refill : Less Than 3 Seconds Results/Procedures Lab Laboratory Tests 02/10/23 04:46 02/10/23 05:40 Patient resulted labs reviewed. Imaging: Reviewed Imaging Films, Reviewed Imaging Report Assessment/Plan Assessment and Plan Assess & Plan/Chief Complaint (1) Hypertensive urgency Status: Acute Assessment & Plan: Chest pain has resolved as of this a.m. Plan: Is currently on hydralazine 50 mg every q8 hours, clonidine 0.1 mg daily, metoprolol 100 mg daily and doxazosin 1 mg twice daily. He also has amlodipine 10 mg daily as needed and lisinopril 40 mg daily as needed on board. Has still been requiring some doses of IV labetalol and hydralazine overnight. We will try to avoid IV medications and use oral as needed. Goal at this point is to have systolics of 150s to 160s Cardiology consulted appreciate recommendations (2) Chest pain Status: Resolved Assessment & Plan: Troponins were negative. D-dimer was elevated however CTA chest was negative. Elevated BNP. Likely secondary to hypertensive urgency. Plan: Manage per above Resolution Date/Time: 02/09/23 @ 09:43 (3) Fever Status: Resolved Assessment & Plan: Noted fever via EMS which technically meets SIRS criteria in addition to tachycardia. Patient does not have any identifiable source of infection however is on IV cefepime. No further fevers at this time. Resolution Date/Time: 02/09/23 @ 09:43 (4) Leukocytosis Status: Acute Assessment & Plan: White blood cell count increased from 4.5 to 15.3 this AM. Being treated with IV cefepime. There is no clear source of infection as UA showing no growth, blood culture is also showing no growth. CXR negative. Likely secondary to steroids. Plan: - Switch to augmentin - transfer to 4th floor (5) Chronic pain Status: Chronic Assessment & Plan: Patient on scheduled pain medications at home. May be contributing to elevated blood pressure. Continue home medications. (6) COPD (chronic obstructive pulmonary disease) Status: Chronic Assessment & Plan: May be contributing to chest pain. We will restart home medications. Currently on oxygen however patient does not have a home oxygen requirement. May have sleep apnea and would benefit from a CPAP. We will do oxygen evaluation prior to discharge once stabilized Clinical Quality Measures AMI/AHF: ASA po Prior to arrival: Yes ([phone]) CARLOS NUNN DO Feb 10, 2023 05:56
[2023-02-10 06:00] LABS: ALBUMIN 3.8 GM/DL (3.2-4.5); POTASSIUM 3.9 MMOL/L (3.6-5.0)
[2023-02-10 06:03] LABS: TOTAL PROTEIN 6.5 GM/DL (6.4-8.2)
[2023-02-10 06:05] LABS: BILIRUBIN,TOTAL 0.7 MG/DL (0.1-1.0)
[2023-02-10 06:06] LABS: PHOSPHORUS 3.8 MG/DL (2.3-4.7)
[2023-02-10 06:07] LABS: CREATININE SERUM 0.98 MG/DL (0.60-1.30)
[2023-02-10 06:10] LABS: MAGNESIUM 1.9 MG/DL (1.6-2.4)
[2023-02-10] MEDS: ASPIRIN 81 MG CHEWABLE TABLET PO SCH (08:16)
[2023-02-10] MEDS: LORATADINE 10 MG TABLET PO SCH (08:16)
[2023-02-10] MEDS: PANTOPRAZOLE 40 MG TABLET PO SCH (08:16)
[2023-02-10] MEDS: TAMSULOSIN 0.4 MG (FLOMAX) CAP PO SCH (08:16)
[2023-02-10] MEDS: GABAPENTIN 100 MG CAPSULE PO SCH (08:16)
[2023-02-10] MEDS: AMOXICILLIN/Clavulanate 875 MG TABLET PO SCH (08:16)
[2023-02-10] MEDS: FERROUS SULFATE 325 MG (IRON) TABLET PO SCH (08:16)
[2023-02-10] MEDS: ALLOPURINOL 300 MG TABLET PO SCH (08:16)
[2023-02-10] MEDS: busPIRone 15 MG TABLET PO SCH (08:16)
[2023-02-10] MEDS: dexAMETHasone INJ 4 MG/ML SDV IV SCH (08:17)
[2023-02-10] MEDS: FUROSEMIDE INJECTION 40 MG/4 ML VIAL IVP SCH (08:17)
[2023-02-10] MEDS: SENNOSIDES 8.6 MG TABLET PO SCH (08:17)
[2023-02-10] MEDS ORDERED: FURO-124 PO (09:48)
[2023-02-10] MEDS ORDERED: DOXA1TAB2 PO (09:48)
[2023-02-10] MEDS ORDERED: HYDR-3923 PO (09:48)
[2023-02-10] MEDS ORDERED: LISI40TA9 PO (09:48)
[2023-02-10] MEDS ORDERED: AMOX1TAB12 PO (09:48)
[2023-02-10] MEDS ORDERED: MTP100TCR PO (09:48)
--- NOTE | 2023-02-10 09:50 | Discharge Summary ---
Discharge Summary Hospital Course Was the Problem List Reviewed?: Yes Problems/Dx: (1) Hypertensive urgency Status: Acute (2) Chest pain Status: Resolved (3) Fever Status: Resolved (4) Leukocytosis Status: Acute (5) Chronic pain Status: Chronic (6) COPD (chronic obstructive pulmonary disease) Status: Chronic Hospital Course Date of Admission: Feb 07, 2023 at 20:53 Admission Diagnosis : Family Physician/Provider: Og Parra - [facility] Date of Discharge: 02/10/23 Discharge Diagnosis: [ ] Hospital Course: Patient had an uneventful hospital course after he was admitted for hypertensive urgency. Multiple medication changes made and patient improved. Son was comfortable with discharge and he will continue as needed meds as needed. Labs and Pending Lab Test: Laboratory Tests 02/09/23 10:23: Glucometer 146H 02/09/23 15:35: Glucometer 170H 02/09/23 20:32: Glucometer 134H 02/10/23 04:46: White Blood Count 10.3, Red Blood Count 4.36, Hemoglobin 12.9L, Hematocrit 40, Mean Corpuscular Volume 91, Mean Corpuscular Hemoglobin 30, Mean Corpuscular Hemoglobin Concent 33, Red Cell Distribution Width 13.8, Platelet Count 221, Mean Platelet Volume 10.5, Immature Granulocyte % (Auto) 1, Neutrophils (%) (Auto) 86H, Lymphocytes (%) (Auto) 8L, Monocytes (%) (Auto) 5, Eosinophils (%) (Auto) 0, Basophils (%) (Auto) 0, Neutrophils # (Auto) 8.8H, Lymphocytes # (Auto) 0.9L, Monocytes # (Auto) 0.5, Eosinophils # (Auto) 0.0, Basophils # (Auto) 0.0, Immature Granulocyte # (Auto) 0.1 02/10/23 05:40: Sodium Level 137, Potassium Level 3.9, Chloride Level 102, Carbon Dioxide Level 23, Anion Gap 12, Blood Urea Nitrogen 23H, Creatinine 0.98, Estimat Glomerular Filtration Rate 79, BUN/Creatinine Ratio 23, Glucose Level 135H, Calcium Level 9.0, Corrected Calcium 9.2, Phosphorus Level 3.8, Magnesium Level 1.9, Total Bilirubin 0.7, Aspartate Amino Transf (AST/SGOT) 19, Alanine Aminotransferase (ALT/SGPT) 11, Alkaline Phosphatase 63, Total Protein 6.5, Albumin 3.8 Microbiology 02/07/23 MRSA Screen - Final, Complete 02/07/23 Urine Culture - Final, Complete NO GROWTH 02/07/23 Blood Culture - Preliminary, Resulted Home Meds Active Lasix (Furosemide) 40 Mg Tablet 40 Mg PO Q48H Lisinopril 40 Mg Tablet 40 Mg PO DAILY Metoprolol Succinate 100 Mg Tab.er.24h 100 Mg PO DAILY Doxazosin Mesylate 1 Mg Tablet 1 Mg PO BID Hydralazine HCl 25 Mg Tablet 50 Mg PO TID Amox Tr-K Clv 875-125 mg Tab (Amoxicillin/Potassium Clav) 875 Mg-125 Mg Tablet 875 Mg PO BID WITH MEALS Reported Hydralazine HCl 50 Mg Tablet 50 Mg PO Q8H PRN 2ND/3RD LINE BP Tylenol Extra Strength (Acetaminophen) 500 Mg Tablet 1,000 Mg PO Q8H PRN Hydrochlorothiazide 12.5 Mg Tablet 12.5 Mg PO DAILY PRN 4TH LINE BP Amlodipine Besylate 10 Mg Tablet 10 Mg PO DAILY PRN 5TH/LAST LINE BP Ondansetron HCl 4 Mg Tablet 4 Mg PO TID PRN Metoprolol Succinate 100 Mg Tab.er.24h 100 Mg PO DAILY PRN 2ND/3RD LINE BP Flomax (Tamsulosin HCl) 0.4 Mg Cap 0.4 Mg PO DAILY Hydrocodone-Acetamin 5-325 mg (Hydrocodone/Acetaminophen) 5 Mg-325 Mg Tablet 1 Ea PO Q6H Clonidine HCl 0.1 Mg Tablet 0.1 Mg PO Q6H PRN 1ST LINE BP Sucralfate 1 Gram Tablet 1 Gm PO ACHS Atorvastatin Calcium 40 Mg Tablet 40 Mg PO HS Ferosul (Ferrous Sulfate) 325 Mg (65 Mg Iron) Tablet 325 Mg PO DAILY Pantoprazole Sodium 40 Mg Tablet.dr 40 Mg PO HS Tizanidine HCl 6 Mg Capsule 6 Mg PO TID PRN Aspirin EC (Aspirin) 81 Mg Tablet.dr 81 Mg PO HS Gabapentin 100 Mg Capsule 100 Mg PO DAILY Duloxetine HCl 60 Mg Capsule.dr 60 Mg PO DAILY Buspirone HCl 15 Mg Tablet 15 Mg PO DAILY Trelegy Ellipta 100-62.5-25 (Fluticasone/Umeclidin/Vilanter) 100-62.5 Blst.w.dev 1 Puff INH 1200 LAST FILLED 06-19-2022 #3 DAY SUPPLY Ventolin Hfa (Albuterol Sulfate) 18 Gm Hfa.aer.ad 2 Puff INH Q6H PRN Amitriptyline HCl 100 Mg Tablet 100 Mg PO HS Montelukast Sodium 10 Mg Tablet 10 Mg PO HS Allopurinol 300 Mg Tablet 150 Mg PO DAILY TAKES 1/2 (300MG) TABLET Cetirizine HCl 10 Mg Tablet 10 Mg PO DAILY Assessment/Pt Instructions PCP in 1 week Discharge Planning: <30 minutes discharge planning Discharge Instructions Discharge Diet: No Restrictions Discharge Physical Examination Vital Signs Vital Signs Date Time Temp Pulse Resp B/P (MAP) Pulse Ox O2 Delivery O2 Flow Rate FiO2 02/10/23 08:00 36.7 82 18 176/83 (114) 96 Room Air 02/09/23 05:00 2.00 General Appearance: No Apparent Distress, WD/WN Allergies: Coded Allergies: morphine (Verified Allergy, Severe, HIVES, N/V,pt has rec. Lortab in the past w/o issue, 10/23/21) Discharge Summary Date of Admission Feb 07, 2023 at 20:53 Date of Discharge Discharge Date: Feb 10, 2023 Admission Diagnosis Hypertension urgency Close monitoring ICU Discharge Diagnosis (1) Hypertensive urgency Status: Acute Assessment & Plan: Chest pain has resolved as of this a.m. Plan: Is currently on hydralazine 50 mg every q8 hours, clonidine 0.1 mg daily, metoprolol 100 mg daily and doxazosin 1 mg twice daily. He also has amlodipine 10 mg daily as needed and lisinopril 40 mg daily as needed on board. Has still been requiring some doses of IV labetalol and hydralazine overnight. We will try to avoid IV medications and use oral as needed. Goal at this point is to have systolics of 150s to 160s Cardiology consulted appreciate recommendations (2) Chest pain Status: Resolved Assessment & Plan: Troponins were negative. D-dimer was elevated however CTA chest was negative. Elevated BNP. Likely secondary to hypertensive urgency. Plan: Manage per above Resolution Date/Time: 02/09/23 @ 09:43 (3) Fever Status: Resolved Assessment & Plan: Noted fever via EMS which technically meets SIRS criteria in addition to tachycardia. Patient does not have any identifiable source of infection however is on IV cefepime. No further fevers at this time. Resolution Date/Time: 02/09/23 @ 09:43 (4) Leukocytosis Status: Acute Assessment & Plan: White blood cell count increased from 4.5 to 15.3 this AM. Being treated with IV cefepime. There is no clear source of infection as UA showing no growth, blood culture is also showing no growth. CXR negative. Likely secondary to steroids. Plan: - Switch to augmentin - transfer to 4th floor (5) Chronic pain Status: Chronic Assessment & Plan: Patient on scheduled pain medications at home. May be contributing to elevated blood pressure. Continue home medications. (6) COPD (chronic obstructive pulmonary disease) Status: Chronic Assessment & Plan: May be contributing to chest pain. We will restart home medications. Currently on oxygen however patient does not have a home oxygen requirement. May have sleep apnea and would benefit from a CPAP. We will do oxygen evaluation prior to discharge once stabilized (1) Hypertensive urgency Status: Acute Assessment & Plan: Chest pain has resolved as of this a.m. Plan: Is currently on hydralazine 50 mg every q8 hours, clonidine 0.1 mg daily, metoprolol 100 mg daily and doxazosin 1 mg twice daily. He also has amlodipine 10 mg daily as needed and lisinopril 40 mg daily as needed on board. Has still been requiring some doses of IV labetalol and hydralazine overnight. We will try to avoid IV medications and use oral as needed. Goal at this point is to have systolics of 150s to 160s Cardiology consulted appreciate recommendations (2) Chest pain Status: Resolved Assessment & Plan: Troponins were negative. D-dimer was elevated however CTA chest was negative. Elevated BNP. Likely secondary to hypertensive urgency. Plan: Manage per above (3) Fever Status: Resolved Assessment & Plan: Noted fever via EMS which technically meets SIRS criteria in addition to tachycardia. Patient does not have any identifiable source of infection however is on IV cefepime. No further fevers at this time. (4) Leukocytosis Status: Acute Assessment & Plan: White blood cell count increased from 4.5 to 15.3 this AM. Being treated with IV cefepime. There is no clear source of infection as UA showing no growth, blood culture is also showing no growth. CXR negative. Likely secondary to steroids. Plan: - Switch to augmentin - transfer to 4th floor (5) Chronic pain Status: Chronic Assessment & Plan: Patient on scheduled pain medications at home. May be contributing to elevated blood pressure. Continue home medications. (6) COPD (chronic obstructive pulmonary disease) Status: Chronic Assessment & Plan: May be contributing to chest pain. We will restart home medications. Currently on oxygen however patient does not have a home oxygen requirement. May have sleep apnea and would benefit from a CPAP. We will do oxygen evaluation prior to discharge once stabilized Clinical Quality Measures AMI/AHF: ASA po Prior to arrival: Yes ([phone]) CARLOS NUNN DO Feb 10, 2023 09:50
[2023-02-10] MEDS: DOCUSATE SODIUM 100 MG CAPSULE PO SCH (10:14)
[2023-02-10] MEDS: DULoxetine 30 MG CAPSULE PO SCH (10:14)
== END 2023-02-10 13:30 | disposition home health service (06) | DRG 305 ==
LOC: EDUNIT# 18:11 → ER 18:13 → ICU 20:53 → 4TH 02-09 16:38 → CSD 02-09 16:49
PROVIDERS: ADMIT Internal Medicine; ATTEND Internal Medicine
DX: I16.0 Hypertensive urgency (principal); J43.9 Emphysema, unspecified; E87.6 Hypokalemia; E83.42 Hypomagnesemia; G47.33 Obstructive sleep apnea (adult) (pediatric); I25.10 Atherosclerotic heart disease of native coronary artery without angina pectoris; I11.0 Hypertensive heart disease with heart failure; I50.9 Heart failure, unspecified; E78.00 Pure hypercholesterolemia, unspecified; N40.0 Benign prostatic hyperplasia without lower urinary tract symptoms; K21.9 Gastro-esophageal reflux disease without esophagitis; E11.9 Type 2 diabetes mellitus without complications; M10.9 Gout, unspecified; I08.0 Rheumatic disorders of both mitral and aortic valves; H54.3 Unqualified visual loss, both eyes; D72.829 Elevated white blood cell count, unspecified; T38.0X5A Adverse effect of glucocorticoids and synthetic analogues, initial encounter; M54.9 Dorsalgia, unspecified; G89.29 Other chronic pain; Z87.891 Personal history of nicotine dependence; Z86.711 Personal history of pulmonary embolism; Z87.820 Personal history of traumatic brain injury; Z85.46 Personal history of malignant neoplasm of prostate; Z96.653 Presence of artificial knee joint, bilateral; Z96.643 Presence of artificial hip joint, bilateral; Z96.611 Presence of right artificial shoulder joint; Z79.82 Long term (current) use of aspirin; Z79.899 Other long term (current) drug therapy; Z88.5 Allergy status to narcotic agent
CPT/HCPCS: 36415; 71045; 71275; 80053; 81000; 82150; 82550; 82553; 82947; 83605; 83690; 83735; 83874; 83880; 84100; 84484; 85007; 85025; 85027; 85379; 85610; 85730; 87040; 87081; 87088; 87636; 93005; 93041; 94640; 94761; 96361; 96365; 96367; 96375